=== PATIENT | female | born 1965 | race Caucasian/White ===

== ENCOUNTER 2021-05-05 23:25 | Emergency (ER) | payer OTHER, SELFPAY ==
--- NOTE | ~2021-05-05 | CT_ITS ---
EXAMINATION: CT HEAD WITHOUT CONTRAST CLINICAL INFORMATION: Intoxication. Question of fall. Evaluate for skull fracture. COMPARISON: CT head dated 08/13/2018 TECHNIQUE: Contiguous axial imaging was performed from the skull base to vertex without intravenous administration of contrast. This CT examination was performed using dose optimization techniques as appropriate, variously including the following: *Automated exposure control *Adjustment of mA and/or kV according to patient size (this includes techniques or standardized protocols for targeted exams where dose is matched to indication/reason for exam; i.e. extremities or head) *Use of iterative reconstruction technique DLP: 713 mGy-cm FINDINGS: There is no evidence of acute intracranial hemorrhage or territorial infarction. No abnormal mass effect or midline shift is seen. [place] to white matter differentiation is well preserved. No extra-axial fluid collections are identified. The ventricles are normal in size. Stable chronic encephalomalacia and gliosis involving the bilateral temporal lobes bilaterally. Mild patchy subcortical white matter low-attenuation changes statistically related to chronic white matter small vessel ischemic disease. Calvarium and skull base are intact.. The mastoid air cells and visualized portions of the paranasal sinuses are well aerated. CT/CT head/brain wo con IMPRESSION: * No acute intracranial pathology. * No calvarial fracture. * Chronic bilateral temporal lobe infarcts, and mild chronic white matter small vessel ischemic changes.
--- NOTE | ~2021-05-05 | XR_ITS ---
EXAMINATION: XR CHEST CLINICAL INFORMATION: Tachycardia COMPARISON: 01/30/2019 TECHNIQUE: Frontal view of the chest was obtained. FINDINGS: Bibasilar subsegmental atelectasis. Normal heart size. Pulmonary venous congestion without overt edema. No pleural effusion or pneumothorax. No acute or suspicious osseous abnormalities. XR/XR chest 1V IMPRESSION: Bibasilar subsegmental atelectasis. No discrete consolidation.
[2021-05-05 23:47] VITALS: BP 103/55; PULSE 110; RESP 15; TEMP 35.8; O2SAT 89; BMI 30.9
[2021-05-06] VITALS (9 sets, daily range): BP systolic 90–139; BP diastolic 51–75; PULSE 95–116; RESP 2–18; TEMP 34.8–36.9; O2SAT 93–98
--- NOTE | 2021-05-06 00:13 | ECG_ITS ---
Test Reason : SUBSTANCE ABUSE Blood Pressure : / mmHG Vent. Rate : 109 BPM Atrial Rate : 109 BPM P-R Int : 164 ms QRS Dur : 082 ms QT Int : 360 ms P-R-T Axes : 061 050 021 degrees QTc Int : 484 ms Sinus tachycardia Otherwise normal ECG When compared with ECG of 06-FEB-2019 21:41, Heart rate has increased Referred By: Generic ED Physician Electronically Signed By:DIOGO ROJAS
[2021-05-06 00:29] LABS: Basophils Percent Auto 0.6 % (0-2); Eosinophils Absolute Auto 0.2 X10*3/uL (0.0-0.4); Eosinophils Percent Auto 3.2 % (0-4); Hematocrit 36.3 % (37-47); Hemoglobin 12.2 g/dl (12.0-16.0); Imm Gran Abs Auto 0.01 X10*3/uL (0.00-0.03); Imm Gran Pct Auto 0.2 % (0.0-0.4); Lymphocytes Absolute Auto 3.1 X10*3/uL (1.2-4.9); Lymphocytes Percent Auto 61.2 % (20-40); MANUAL DIFF FLAG SCAN; Mean Corpuscular HGB Conc 33.6 g/dl (31.0-35.0); Mean Corpuscular Hemoglobin 30.3 pg (27.0-33.0); Mean Corpuscular Volume 90.3 fL (80-98); Mean Platelet Volume 9.6 fL (9.4-12.3); Monocytes Absolute Auto 0.5 X10*3/uL (0.1-1.2); Monocytes Percent Auto 10.4 % (2-11); Neutrophils Absolute Auto 1.2 X10*3/uL (2.0-8.3); Neutrophils Percent Auto 24.4 % (45-73); Platelet Count 219 X10*3/uL (160-400); Red Blood Count 4.02 X10*6/uL (4.20-5.50); Red Cell Distribution Width 12.5 % (11.0-16.0); SCAN SMEAR FLAG 1
[2021-05-06 00:41] LABS: Glucose, Whole Blood 132 mg/dL (60-115)
[2021-05-06 00:46] LABS: Ethanol 269 mg/dL
[2021-05-06 00:54] LABS: Anion Gap 16 (12-20); Blood Urea Nitrogen 13 mg/dL (9-16); Calcium 8.8 mg/dL (8.4-10.2); Carbon Dioxide 22 mmol/L (22-29); Chloride 107 mmol/L (96-108); Creatinine Clr Calc Pharmacy 86.7; Estimated Glomerular Filt Rate > 60; Glucose Random 141 mg/dL (60-115); Magnesium 1.8 mg/dL (1.6-2.6); Potassium 3.7 mmol/L (3.3-5.1); Sodium 141 mmol/L (135-145)
--- NOTE | 2021-05-06 01:31 | ED_ITS ---
HPI - Alcohol General Chief Complaint: ETOH/Substance Use Stated Complaint: etoh Time Seen by Provider: 05/06/21 01:21 Source: EMS Mode of arrival: EMS History of Present Illness HPI narrative: 55-year-old female who is brought in by EMS after she was found on the steps of the school with an empty beer can next to her. Although patient is noted to be responsive to pain and her point of care is 115 remaining history is unable to be obtained from her. Related Data Allergies Allergy/AdvReac Type Severity Reaction Status Date / Time No Known Allergies Allergy Unverified 05/11/20 16:55 [No Known Allergies*] Review of Systems Review of Systems: Yes Unobtainable due to mental status PMFSH Past Medical History Source: nursing notes reviewed Medical History (Updated 05/06/21 @ 06:24 by Ginny Andrew MD) Depression ETOH abuse Mood disorder as late effect of traumatic brain injury TBI (traumatic brain injury) Physical Exam Vital Signs: Vital Signs: Last Vital Signs Temp 94.6 F L 05/06/21 02:55 Pulse 95 05/06/21 04:45 Resp 12 05/06/21 04:45 BP 100/56 L 05/06/21 04:48 Pulse Ox 94 05/06/21 04:45 Body Mass Index 30.9 VITAL SIGNS: Reviewed. GENERAL: Smells like alcohol, in no acute distress. HEAD: Normocephalic/atraumatic EYES: PERRLA, EOMI OROPHARYNX: no oral lesions noted, posterior pharynx clear NECK: Supple, no adenopathy LUNGS: Normal breath sounds. No adventitious sounds or accessory muscle use. SpO2<98> CARDIOVASCULAR: Regular rate and rhythm without noted murmurs ABDOMEN: Soft, non-tender, non-distended with bowel sounds. MUSCULOSKELETAL: No tenderness, deformities, or effusions noted on gross inspe ction. EXTREMITIES: No cyanosis, clubbing or edema. SKIN: Inspection of the skin reveals no rashes, jaundice, pallor, or petechiae. NEUROLOGIC: GCS-10. Strength and sensation to light touch were grossly intact x 4. Course Course Course Narrative: 55-year-old female with history and clinical presentation suggestive of possible alcohol intoxication and likely other substances given GCS-10. Review of all investigations without acute findings other than alcohol intoxication as well as evidence of recent cocaine use. Patient has gradually become more arousable and alert and will be observed until clinically sober for discharge. Signed out to Dr Corea [facility] - Alcohol Lab Data Result diagrams: 05/06/21 00:23 05/06/21 00:23 Labs: Lab Results 05/05/21 05/06/21 05/06/21 Range/Units 23:43 00:23 00:23 WBC 5.0 (4.8-10.8) X10*3/uL RBC 4.02 L (4.20-5.50) X10*6/uL Hgb 12.2 (12.0-16.0) g/dl Hct 36.3 L (37-47) % MCV 90.3 (80-98) fL MCH 30.3 (27.0-33.0) pg MCHC 33.6 (31.0-35.0) g/dl RDW 12.5 (11.0-16.0) % Plt Count 219 (160-400) X10*3/uL MPV 9.6 (9.4-12.3) fL Immature Gran % (Auto) 0.2 (0.0-0.4) % Neut % (Auto) 24.4 L (45-73) % Lymph % (Auto) 61.2 H (20-40) % [place] % (Auto) 10.4 (2-11) % Eos % (Auto) 3.2 (0-4) % Baso % (Auto) 0.6 (0-2) % Lymph # (Auto) 3.1 (1.2-4.9) X10*3/uL [place] # (Auto) 0.5 (0.1-1.2) X10*3/uL Eos # (Auto) 0.2 (0.0-0.4) X10*3/uL Baso # (Auto) 0.0 (0.0-0.2) X10*3/uL Abs Immat Gran (auto) 0.01 (0.00-0.03) X10*3/uL Absolute Neuts (auto) 1.2 L (2.0-8.3) X10*3/uL Absolute Nucleated RBC 0.000 (0.0-0.012) X10*3/uL Nucleated RBC % (auto) 0.0 (0.0-0.2) /100WBC Smear Tech's Comments VERIFIED Sodium 141 (135-145) mmol/L Potassium 3.7 (3.3-5.1) mmol/L Chloride 107 (96-108) mmol/L Carbon Dioxide 22 (22-29) mmol/L Anion Gap 16 (12-20) BUN 13 (9-16) mg/dL Creatinine 0.74 (0.5-1.4) mg/dL Estim Creat Clear Calc 86.7 Estimated GFR > 60 POC Glucose 132 H (60-115) mg/dL Random Glucose 141 H (60-115) mg/dL Calcium 8.8 (8.4-10.2) mg/dL Magnesium 1.8 (1.6-2.6) mg/dL Total Bilirubin 0.2 (0.0-1.0) mg/dL Direct Bilirubin < 0.2 (0.0-0.5) mg/dL AST 38 H (5-31) U/L ALT 28 (0-31) U/L Alkaline Phosphatase 68 (39-117) U/L Ammonia (13-55) umol/L Total Protein 6.5 (6.5-8.0) g/dL Albumin 3.6 (3.5-5.0) g/dL Urine Color Urine Appearance Urine pH (5.0-8.0) Ur Specific [place] (1.005-1.025) Urine Protein (NEG-TRACE) MG/DL Urine Glucose (UA) (NEG) MG/DL Urine Ketones (NEG) MG/DL Urine Blood (NEG) Urine Nitrite (NEG) Ur Leukocyte Esterase (NEG) Salicylates < 5.0 L (15-30) mg/dL Urine Opiates Screen (Not Detect) Urine Fentanyl Screen (Not Detect) Acetaminophen < 1 (<30) mcg/mL Ur Barbiturates Screen (Not Detect) Ur Phencyclidine Scrn (Not Detect) Ur Amphetamines Screen (Not Detect) U Benzodiazepines Scrn (Not Detect) Urine Cocaine Screen (Not Detect) U Marijuana (THC) Screen (Not Detect) Ethyl Alcohol mg/dL COVID-19 (GARCIA) (Negative) COVID-19 Clin Com 05/06/21 05/06/21 05/06/21 Range/Units 00:23 02:20 02:32 WBC (4.8-10.8) X10*3/uL RBC (4.20-5.50) X10*6/uL Hgb (12.0-16.0) g/dl Hct (37-47) % MCV (80-98) fL MCH (27.0-33.0) pg MCHC (31.0-35.0) g/dl RDW (11.0-16.0) % Plt Count (160-400) X10*3/uL MPV (9.4-12.3) fL Immature Gran % (Auto) (0.0-0.4) % Neut % (Auto) (45-73) % Lymph % (Auto) (20-40) % [place] % (Auto) (2-11) % Eos % (Auto) (0-4) % Baso % (Auto) (0-2) % Lymph # (Auto) (1.2-4.9) X10*3/uL [place] # (Auto) (0.1-1.2) X10*3/uL Eos # (Auto) (0.0-0.4) X10*3/uL Baso # (Auto) (0.0-0.2) X10*3/uL Abs Immat Gran (auto) (0.00-0.03) X10*3/uL Absolute Neuts (auto) (2.0-8.3) X10*3/uL Absolute Nucleated RBC (0.0-0.012) X10*3/uL Nucleated RBC % (auto) (0.0-0.2) /100WBC Smear Tech's Comments Sodium (135-145) mmol/L Potassium (3.3-5.1) mmol/L Chloride (96-108) mmol/L Carbon Dioxide (22-29) mmol/L Anion Gap (12-20) BUN (9-16) mg/dL Creatinine (0.5-1.4) mg/dL Estim Creat Clear Calc Estimated GFR POC Glucose (60-115) mg/dL Random Glucose (60-115) mg/dL Calcium (8.4-10.2) mg/dL Magnesium (1.6-2.6) mg/dL Total Bilirubin (0.0-1.0) mg/dL Direct Bilirubin (0.0-0.5) mg/dL AST (5-31) U/L ALT (0-31) U/L Alkaline Phosphatase (39-117) U/L Ammonia (13-55) umol/L Total Protein (6.5-8.0) g/dL Albumin (3.5-5.0) g/dL Urine Color STRAW Urine Appearance CLEAR Urine pH 6.0 (5.0-8.0) Ur Specific [place] <= 1.005 (1.005-1.025) Urine Protein NEG (NEG-TRACE) MG/DL Urine Glucose (UA) NEG (NEG) MG/DL Urine Ketones NEG (NEG) MG/DL Urine Blood NEG (NEG) Urine Nitrite NEG (NEG) Ur Leukocyte Esterase NEG (NEG) Salicylates (15-30) mg/dL Urine Opiates Screen (Not Detect) Urine Fentanyl Screen (Not Detect) Acetaminophen (<30) mcg/mL Ur Barbiturates Screen (Not Detect) Ur Phencyclidine Scrn (Not Detect) Ur Amphetamines Screen (Not Detect) U Benzodiazepines Scrn (Not Detect) Urine Cocaine Screen (Not Detect) U Marijuana (THC) Screen (Not Detect) Ethyl Alcohol 269 mg/dL COVID-19 (GARCIA) Negative (Negative) COVID-19 Clin Com See Note 05/06/21 05/06/21 Range/Units 02:32 02:44 WBC (4.8-10.8) X10*3/uL RBC (4.20-5.50) X10*6/uL Hgb (12.0-16.0) g/dl Hct (37-47) % MCV (80-98) fL MCH (27.0-33.0) pg MCHC (31.0-35.0) g/dl RDW (11.0-16.0) % Plt Count (160-400) X10*3/uL MPV (9.4-12.3) fL Immature Gran % (Auto) (0.0-0.4) % Neut % (Auto) (45-73) % Lymph % (Auto) (20-40) % [place] % (Auto) (2-11) % Eos % (Auto) (0-4) % Baso % (Auto) (0-2) % Lymph # (Auto) (1.2-4.9) X10*3/uL [place] # (Auto) (0.1-1.2) X10*3/uL Eos # (Auto) (0.0-0.4) X10*3/uL Baso # (Auto) (0.0-0.2) X10*3/uL Abs Immat Gran (auto) (0.00-0.03) X10*3/uL Absolute Neuts (auto) (2.0-8.3) X10*3/uL Absolute Nucleated RBC (0.0-0.012) X10*3/uL Nucleated RBC % (auto) (0.0-0.2) /100WBC Smear Tech's Comments Sodium (135-145) mmol/L Potassium (3.3-5.1) mmol/L Chloride (96-108) mmol/L Carbon Dioxide (22-29) mmol/L Anion Gap (12-20) BUN (9-16) mg/dL Creatinine (0.5-1.4) mg/dL Estim Creat Clear Calc Estimated GFR POC Glucose (60-115) mg/dL Random Glucose (60-115) mg/dL Calcium (8.4-10.2) mg/dL Magnesium (1.6-2.6) mg/dL Total Bilirubin (0.0-1.0) mg/dL Direct Bilirubin (0.0-0.5) mg/dL AST (5-31) U/L ALT (0-31) U/L Alkaline Phosphatase (39-117) U/L Ammonia 37 (13-55) umol/L Total Protein (6.5-8.0) g/dL Albumin (3.5-5.0) g/dL Urine Color Urine Appearance Urine pH (5.0-8.0) Ur Specific [place] (1.005-1.025) Urine Protein (NEG-TRACE) MG/DL Urine Glucose (UA) (NEG) MG/DL Urine Ketones (NEG) MG/DL Urine Blood (NEG) Urine Nitrite (NEG) Ur Leukocyte Esterase (NEG) Salicylates (15-30) mg/dL Urine Opiates Screen Not Detected (Not Detect) Urine Fentanyl Screen Not Detected (Not Detect) Acetaminophen (<30) mcg/mL Ur Barbiturates Screen Not Detected (Not Detect) Ur Phencyclidine Scrn Not Detected (Not Detect) Ur Amphetamines Screen Not Detected (Not Detect) U Benzodiazepines Scrn Not Detected (Not Detect) Urine Cocaine Screen POSITIVE H (Not Detect) U Marijuana (THC) Screen Not Detected (Not Detect) Ethyl Alcohol mg/dL COVID-19 (GARCIA) (Negative) COVID-19 Clin Com ECG Data ECG #1: Attestation: I personally reviewed and interpreted this ECG as follows: Prior ECG tracings: not available for review Interpretation: Sinus tachycardia, HR-109, no STEMI, OH/QRS/QTC are within normal limits. Discharge Plan Discharge Clinical Impression: Alcoholic intoxication, Cocaine abuse Patient Disposition: Home, Self-Care Instructions: Alcohol Intoxication (ED), Alcohol Dependence (ED), Cocaine Abuse (ED) Additional Instructions: Return to the ER for acute worsening of symptoms.
[2021-05-06] MEDS: 0.9 % Sodium Chloride 1,000 ML 999 ML IV ×3 (02:09→06:52)
[2021-05-06 02:28] LABS: SLIDE REVIEW VERIFIED
--- NOTE | 2021-05-06 02:38 | PC.NURSE ---
PT STIL ONLY RESPONSIVE TO PAIN, SNORING RESPIRATIONS AND WOULD NOT BE ABLE TO CONTROL HER OWN AIRWAY. ONLY VERBAL RESPONSE HAS BEEN MOANING TO PAIN. PT HAS 369 ML WITH BLADDER SCAN. STRAIGHT CATH TO OBTAIN CLEAN CATCH. PT HAS STIFFNESS TO ALL 4 EXTREMITIES LASTING FOR MINUTES. PT DID NOT HAVE ANY NOTICABLE TONIC CLONIC ACTIVITY. PT'S EXREMITIES NOW FLEXIBLE AT JOINTS. PUPILS EQUAL AND REACTIVE, 2-3 MM.
[2021-05-06 02:45] LABS: Appearance Urine CLEAR; Color Urine STRAW; Glucose Urine UA NEG (NEG); Leukocyte Esterase Urine NEG (NEG); Nitrite Urine NEG (NEG); Specific Gravity - Urine <= 1.005 (1.005-1.025); Urine Blood NEG (NEG); Urine Ketones NEG (NEG); Urine Protein NEG (NEG-TRACE)
--- NOTE | 2021-05-06 02:55 | PC.NURSE ---
PRT WAKES TO PAINFUL STIMULUS. STATES I'M AWAKE. PT CAN NOT STAY AWAKE FOR CONVERSATION. UNKNOWN PMHX. REMERON, SEROQUEL AND HYDROXYZINE FOUND IN PURSE.
--- NOTE | 2021-05-06 02:57 | PC.NURSE ---
WARM BLANKETS PLACED ON PT. 340 ML OF URINE FROM STRAIGHT CATH.
[2021-05-06 02:59] LABS: Ammonia 37 umol/L (13-55)
[2021-05-06 03:04] LABS: Amphetamine Screen Urine Not Detected (Not Detect); Barbiturates, Urine Not Detected (Not Detect); Benzodiazepines Screen Urine Not Detected (Not Detect); Cannabinoid Screen Urine Not Detected (Not Detect); Cocaine Screen Urine POSITIVE (Not Detect); Fentanyl, urine Not Detected (Not Detect); Opiate Screen Urine Not Detected (Not Detect); Phencyclidine Screen Urine Not Detected (Not Detect)
[2021-05-06 03:05] LABS: Alanine Aminotransferase 28 U/L (0-31); Albumin Level 3.6 g/dL (3.5-5.0); Alkaline Phosphatase 68 U/L (39-117); Aspartate Amino Transferase 38 U/L (5-31); Bilirubin Direct < 0.2 mg/dL (0.0-0.5); Bilirubin Total 0.2 mg/dL (0.0-1.0); Total Protein 6.5 g/dL (6.5-8.0)
[2021-05-06 03:10] LABS: COVID-19 Test Negative (Negative)
--- NOTE | 2021-05-06 03:18 | PC.NURSE ---
FOUND NOTE FROM M5 DISCHARGE WHICH MENTIONED HX OF PSYCHIATRIC DEPRESSION MOOD INSTABILITY IRRITABILITY S/P TBI ETOH ON 09/03/2018 PT WAS REFERRED TO [facility] IN [place]. PT HAD A SON WHO WAS SUPPORTIVE WELL.
--- NOTE | 2021-05-06 03:49 | PC.NURSE ---
This RN passing by room and notes pt's BP to be 79/46. Dr Andrew made aware, to bedside. With painful stimulation, pt arouses for Dr Andrew. This RN repeats BP 98/65. Pt VS otherwise stable. IVF complete
[2021-05-06 04:12] LABS: Acetaminophen LAB < 1 mcg/mL (<30); Salicylate < 5.0 mg/dL (15-30)
--- NOTE | 2021-05-06 05:55 | PC.NURSE ---
pt responds to voice by opening her eyes, makes eye contact then goes back to sleep.
--- NOTE | 2021-05-06 11:52 | PC.NURSE ---
ALERT, SPEECH CLEAR, STEADY GAIT TO BATHROOM, CALLING FOR A RIDE
== END 2021-05-06 16:26 | disposition home or self-care (01) ==
LOC: HO.ED 05-06 07:25
PROVIDERS: Student in an Organized Health Care Education/Training Program; Emergency Provider Emergency Medicine; PCP Internal Medicine
DX: F10.129 Alcohol abuse with intoxication, unspecified (principal); G44.309 Post-traumatic headache, unspecified, not intractable; Y90.8 Blood alcohol level of 240 mg/100 ml or more; F14.10 Cocaine abuse, uncomplicated; Z20.822 Contact with and (suspected) exposure to COVID-19; Z79.899 Other long term (current) drug therapy
CPT/HCPCS: 36415; 51798; 70450; 71045; 80048; 80076; 80143; 80179; 80307; 81003; 82077; 82140; 82947; 83735; 85025; 87635; 93005; 99285

== ENCOUNTER 2021-05-06 21:36 | Emergency (ER) | payer OTHER, SELFPAY ==
[2021-05-06 21:45] VITALS: BP 148/82; PULSE 116; RESP 18; TEMP 37; O2SAT 96; BMI 37.2
--- NOTE | 2021-05-06 22:44 | ED_ITS ---
HPI - Psych General Chief Complaint: Psychiatric Symptoms Stated Complaint: crisis Time Seen by Provider: 05/06/21 22:44 Source: patient Mode of arrival: EMS Limitations: no limitations History of Present Illness HPI Narrative: This is a 55 years old of female with history of alcohol abuse presented by ambulance with a chief complaint of SI. The patient was seen here earlier in this emergency room as well complaint: substance abuse Onset (ago): day(s) (1) Duration: constant Relieving factors: none Exacerbating factors: none Associated psychiatric symptoms: none Related Data Home Medications Medication Instructions Recorded Confirmed quetiapine 50 mg tablet 1 tab PO BEDTIME 05/06/21 05/06/21 Allergies Allergy/AdvReac Type Severity Reaction Status Date / Time No Known Allergies Allergy Unverified 05/11/20 16:55 [No Known Allergies*] Review of Systems Review of Systems: Yes all other systems are reviewed and are negative Constitutional: Constitutional: Reports no additional constitutional complaints Eyes: Eyes: Reports no additional eye complaints ENT: Reports system reviewed and no additional complaints, except as documented Cardiovascular: Cardiovascular: Reports no additional cardiovascular complaints Respiratory: Respiratory: Reports no additional respiratory complaints Gastrointestinal: Gastrointestinal: Reports no additional gastrointestinal complaints Genitourinary: Genitourinary: Reports no additional female genitourinary complaints Musculoskeletal: Musculoskeletal: Reports no additional musculoskeletal complaints Integumentary/Breasts: Skin/Breast: Reports system reviewed and no additional complaints, except as docu Neurologic: Reports Abnormal speech present [facility] Past Medical History Medical History (Updated 05/07/21 @ 02:14 by Nba Stringer MD) Depression ETOH abuse Mood disorder as late effect of traumatic brain injury TBI (traumatic brain injury) Social History Social History Advance Directives: Yes Advance Directives on File: Yes Advance Directives Date on File: 05/06/21 Patient : No Physical Exam Vital Signs: Vital Signs: Last Vital Signs Temp 98.6 F 05/06/21 21:45 Pulse 103 H 05/06/21 23:40 Resp 18 05/06/21 23:40 BP 153/90 H 05/06/21 23:40 Pulse Ox 96 05/06/21 23:40 Body Mass Index 37.2 Const: General: cooperative and anxious Orientation/consciousness: oriented to person, oriented to place, oriented to time and patient oriented x3 Limitations: no limitations HENMT: Head: Yes normal to inspection Ears: hearing grossly normal bilaterally Mouth: Normal oral and palatal mucosa present Throat: Yes posterior oropharynx normal Neck: Neck: Yes normal visual inspection and Yes full ROM Thyroid: Thyroid normal Chest: Chest palpation & inspection: normal inspection of the chest Resp: Effort & Inspection: normal respiratory effort and able to speak in complete sentences Auscultation: clear to auscultation bilaterally Cardio: Jugular venous distension: no JVD Rate: regular rate Rhythm: regular rhythm GI: Inspection: Yes normal to inspection Palpation (GI): Soft to palpation, not firm, nontender and no guarding Auscultation: normal bowel sounds : General: Yes no CVA tenderness Back/Spine/Pelvis: Back: no CVA tenderness Skin: General skin exam: no rashes or lesions noted and elasticity normal Rashes: no rashes Neuro: General: oriented to person, oriented to place, oriented to time, patient oriented x3 and gait normal Cranial nerves: Yes CN's II-XII intact bilaterally Cognition (Neuro): normal cognition Speech: Abnormal speech present Course Reevaluation(s) Reevaluation #1: Signed out to Dr Andrew [facility] - Psych Lab Data Labs: Lab Results 05/06/21 05/06/21 05/06/21 Range/Units 22:24 22:24 22:24 Urine Color YELLOW Urine Appearance CLEAR Urine pH 6.0 (5.0-8.0) Ur Specific [place] >= 1.030 H (1.005-1.025) Urine Protein TRACE (NEG-TRACE) MG/DL Urine Glucose (UA) NEG (NEG) MG/DL Urine Ketones 15 (NEG) MG/DL Urine Blood TRACE (NEG) Urine Nitrite POS H (NEG) Ur Leukocyte Esterase 1+ H (NEG) Urine RBC 1-4 (0) /HPF Urine WBC 15-29 H (0-4) /HPF Ur Squamous Epith Cells 2+ /LPF Urine Bacteria 2+ /LPF Urine Opiates Screen Not Detected (Not Detect) Urine Fentanyl Screen Not Detected (Not Detect) Ur Barbiturates Screen Not Detected (Not Detect) Ur Phencyclidine Scrn Not Detected (Not Detect) Ur Amphetamines Screen Not Detected (Not Detect) U Benzodiazepines Scrn Not Detected (Not Detect) Urine Cocaine Screen POSITIVE H (Not Detect) U Marijuana (THC) Screen Not Detected (Not Detect) Ethyl Alcohol mg/dL COVID-19 (GARCIA) Negative (Negative) COVID-19 Clin Com See Note 05/06/21 Range/Units 23:33 Urine Color Urine Appearance Urine pH (5.0-8.0) Ur Specific [place] (1.005-1.025) Urine Protein (NEG-TRACE) MG/DL Urine Glucose (UA) (NEG) MG/DL Urine Ketones (NEG) MG/DL Urine Blood (NEG) Urine Nitrite (NEG) Ur Leukocyte Esterase (NEG) Urine RBC (0) /HPF Urine WBC (0-4) /HPF Ur Squamous Epith Cells /LPF Urine Bacteria /LPF Urine Opiates Screen (Not Detect) Urine Fentanyl Screen (Not Detect) Ur Barbiturates Screen (Not Detect) Ur Phencyclidine Scrn (Not Detect) Ur Amphetamines Screen (Not Detect) U Benzodiazepines Scrn (Not Detect) Urine Cocaine Screen (Not Detect) U Marijuana (THC) Screen (Not Detect) Ethyl Alcohol < 10 mg/dL COVID-19 (GARCIA) (Negative) COVID-19 Clin Com Discharge Plan Discharge Clinical Impression: Depression, Alcohol abuse Prescriptions: No Action quetiapine 50 mg tablet 1 tab PO BEDTIME RF: 0
[2021-05-06 22:53] LABS: COVID-19 Test Negative (Negative); IDNOW Serial# 9DD0AD1C
[2021-05-06 22:57] LABS: Appearance Urine CLEAR; Color Urine YELLOW; Glucose Urine UA NEG (NEG); Leukocyte Esterase Urine 1+ (NEG); Nitrite Urine POS (NEG); Specific Gravity - Urine >= 1.030 (1.005-1.025); UACC Culture Trigger YES; Urine Blood TRACE (NEG); Urine Ketones 15 MG/DL (NEG); Urine Protein TRACE MG/DL (NEG-TRACE)
[2021-05-06 23:04] LABS: Squamous Epithelial Cell Urine 2+ /LPF; UACC CULT YES
[2021-05-06 23:05] LABS: Bacteria Urine 2+ /LPF
[2021-05-06 23:10] LABS: Amphetamine Screen Urine Not Detected (Not Detect); Barbiturates, Urine Not Detected (Not Detect); Benzodiazepines Screen Urine Not Detected (Not Detect); Cannabinoid Screen Urine Not Detected (Not Detect); Cocaine Screen Urine POSITIVE (Not Detect); Fentanyl, urine Not Detected (Not Detect); Opiate Screen Urine Not Detected (Not Detect); Phencyclidine Screen Urine Not Detected (Not Detect)
[2021-05-06] MEDS: LORazepam 1 MG TABLET PO (23:28)
[2021-05-06] MEDS: Ibuprofen 800 MG TABLET PO (23:28)
[2021-05-06 23:40] VITALS: BP 153/90; PULSE 103; RESP 18; O2SAT 96
[2021-05-06 23:55] LABS: Ethanol < 10 mg/dL
[2021-05-07] MEDS: cephALEXin 500 MG CAPSULE PO (00:11)
--- NOTE | 2021-05-07 05:47 | PC.NURSE ---
Patient in bed appears sleeping, no distress observed/reported, patient got assessed by [facility], disposition is to d/c to living room and seek detox help from there, patient and provider both are in agreement with the plan, [facility]N will cab patient at 0730, provider made aware of d/c paper , RASHEED, will continue to monitor.
--- NOTE | 2021-05-07 07:08 | PC.NURSE ---
patient appears to remain asleep at this time with even respirations, about to wake patient for discharge
== END 2021-05-07 07:23 | disposition home or self-care (01) ==
PROVIDERS: Emergency Provider Emergency Medicine
DX: F33.1 Major depressive disorder, recurrent, moderate (principal); R45.851 Suicidal ideations; F10.129 Alcohol abuse with intoxication, unspecified; Y90.0 Blood alcohol level of less than 20 mg/100 ml; Z20.822 Contact with and (suspected) exposure to COVID-19; Z79.899 Other long term (current) drug therapy
CPT/HCPCS: 36415; 80307; 81001; 82077; 87086; 87635; 99283

== ENCOUNTER 2021-12-26 22:02 | Emergency (ER) | payer OTHER, SELFPAY ==
[2021-12-26 22:12] VITALS: BP 135/85; PULSE 78; RESP 15; TEMP 37; O2SAT 97; BMI 29.7
[2021-12-26 22:25] VITALS: BP 138/75; PULSE 80; RESP 15; TEMP 36.8; O2SAT 95
--- NOTE | 2021-12-26 22:56 | ED_ITS ---
HPI - Alcohol General Chief Complaint: ETOH/Substance Use Stated Complaint: Anxiety/ETOH Source: patient and EMS Mode of arrival: EMS Limitations: no limitations History of Present Illness HPI narrative: 56-year-old female presents via EMS for alcohol intoxication. Patient was found wandering in the [place] mall [place] it was closed. MD complaint: alcohol intoxication Last drink: Just prior to admission Chronic alcohol use: Yes Previous visits for alcohol intoxication: Yes Recent trauma: No Associated symptoms: denies other symptoms Related Data Home Medications Medication Instructions Recorded Confirmed quetiapine 50 mg tablet 1 tab PO BEDTIME 05/06/21 05/06/21 Allergies Allergy/AdvReac Type Severity Reaction Status Date / Time No Known Allergies Allergy Unverified 05/11/20 16:55 [No Known Allergies*] Review of Systems Review of Systems: Constitutional: No Fever, No Chills ENT/Mouth: No sore throat, No Rhinorrhea Eyes: No Eye Pain, No Swelling, No Redness Cardiovascular: No Chest Pain, No SOB Respiratory: No Cough, No Sputum Gastrointestinal: No Nausea, No Vomiting, No Diarrhea, No abdominal Pain Genitourinary: No Dysuria, No Hematuria Musculoskeletal: No joint pain, No Myalgias, No Joint Swelling Skin: No Skin Lesions, No rash Neuro: No Weakness, No Numbness, No Loss of Consciousness, No Dizziness, No Headache Psych: Positive alcohol intoxication, No Anxiety, No Depression, No SI/HI/AH/VH Heme/Lymph: No Bruising, No Bleeding,No Lymphadenopathy Endocrine: No Polyuria, No Polydipsia Yes all other systems are reviewed and are negative [facility] Past Medical History Attestation statement: The following information was validated with the patient. Source: old records reviewed Medical History Depression ETOH abuse Mood disorder as late effect of traumatic brain injury TBI (traumatic brain injury) Social History Social History Alcohol intake: current Patient Tobacco Use Status: Tobacco use Unknown Use of substances other than those prescribed or required for medical reasons: Unknown Advance Directives: Yes Advance Directives on File: Yes Advance Directives Date on File: 05/06/21 Patient : No Physical Exam ED Vital Signs: Vital Signs - 24 hr 12/26/21 22:12 12/26/21 22:25 Temperature 98.6 F 98.3 F Pulse Rate 78 80 Respiratory Rate 15 15 Blood Pressure 138/75 Pulse Oximetry 97 95 BMI result Body Mass Index 29.7 Appearance: Alert. Oriented X3. Intoxicated. Eyes: Pupils equal, round and reactive to light. Sclera nonicteric. No nystagmus. ENT: Pharynx normal. Moist mucous membranes. Neck: Normal inspection. Neck supple. CVS: Normal heart rate and rhythm. Pulses normal. Respiratory: No respiratory distress. Breath sounds normal. Abdomen: Soft and nontender. Skin: Skin warm and dry. Normal skin color. Normal skin turgor. Extremities: No lower extremity edema. Moves all extremities against resistance. Gait not tested for safety. Neuro: No motor deficit. No sensory deficit. Cranial nerves 2-12 intact. Course Course Course Narrative: 56-year-old female presents with acute alcohol intoxication. Was presented to the emergency department by EMS. Patient was found wandering in the [employer] mall visibly intoxicated. Patient is not suicidal or homicidal. Physical exam is unremarkable. Patient does not have a ride home at this time. Plan of care is to metabolized freedom. 01:05 position observation started at this time. Plan of care is discharge when metabolized to freedom. MDM - Alcohol Differential Diagnosis Differential diagnosis: Likely alcohol dependence and alcohol intoxication Medical Records Attestation: I reviewed the patient's medical records. Discharge Plan Discharge Clinical Impression: Alcoholic intoxication Patient Disposition: Home, Self-Care Instructions: Alcohol Intoxication (ED), Abuse of Alcohol (DC), Alcohol Use Disorder (ED) Additional Instructions: Consider detox. Thank you for choosing this emergency department for evaluation. Please follow-up with primary care physician as needed. Return to the emergency department for any new, concerning, or worsening symptoms. Prescriptions: No Action quetiapine 50 mg tablet 1 tab PO BEDTIME 0RF
[2021-12-27] VITALS: RESP 15
== END 2021-12-27 01:37 | disposition home or self-care (01) ==
PROVIDERS: Emergency Provider Internal Medicine
DX: F10.129 Alcohol abuse with intoxication, unspecified (principal); Y90.9 Presence of alcohol in blood, level not specified; Z87.820 Personal history of traumatic brain injury
CPT/HCPCS: 99284; 99285

== ENCOUNTER 2022-01-06 21:53 | Emergency (ER) | payer OTHER, SELFPAY ==
[2022-01-06 22:09] VITALS: BP 115/64; PULSE 84; O2SAT 95
[2022-01-06 22:21] VITALS: BP 125/75; PULSE 91; RESP 16; TEMP 36.9; O2SAT 94; BMI 35.2
--- NOTE | 2022-01-06 22:45 | ECG_ITS ---
Test Reason : alcohol intoxication Blood Pressure : / mmHG Vent. Rate : 090 BPM Atrial Rate : 090 BPM P-R Int : 202 ms QRS Dur : 088 ms QT Int : 378 ms P-R-T Axes : 069 047 036 degrees QTc Int : 462 ms Normal sinus rhythm Normal ECG When compared with ECG of 05-MAY-2021 23:49, No significant change was found Referred By: Ginny Andrew Electronically Signed By:JASMINA BLACK
--- NOTE | 2022-01-06 22:47 | ED_ITS ---
HPI - Alcohol General Chief Complaint: ETOH/Substance Use Stated Complaint: etoh Time Seen by Provider: 01/06/22 22:45 Source: patient Mode of arrival: EMS History of Present Illness HPI narrative: 56-year-old female is brought in by EMS after she states she called them because she can not go on like this and says that she wants to kill herself and does not have a definitive plan. Patient denies having any family locally and states emiliano t she has been nonstop drinking for the past week and has ?completely fallen off the wagon?. Patient states she has been in a detox program before but not recently. She denies any prior medical history. Related Data Home Medications Medication Instructions Recorded Confirmed quetiapine 50 mg tablet 1 tab PO BEDTIME 05/06/21 05/06/21 Allergies Allergy/AdvReac Type Severity Reaction Status Date / Time No Known Allergies Allergy Unverified 05/11/20 16:55 [No Known Allergies*] Review of Systems Review of Systems: Pertinent positives and negatives as stated in HPI 10 point review of systems is otherwise negative. PMFSH Past Medical History Source: nursing notes reviewed Medical History Depression ETOH abuse Mood disorder as late effect of traumatic brain injury TBI (traumatic brain injury) Social History Social History Alcohol intake: current Patient Tobacco Use Status: Tobacco use Unknown Advance Directives: Yes Advance Directives on File: Yes Advance Directives Date on File: 05/06/21 Physical Exam ED Vital Signs: Vital Signs - 24 hr 01/06/22 22:21 Temperature 98.4 F Pulse Rate 91 Respiratory Rate 16 Blood Pressure 125/75 Pulse Oximetry 94 BMI result Body Mass Index 35.2 VITAL SIGNS: Reviewed. GENERAL: Well developed, well nourished, smells like alcohol HEAD: Normocephalic/atraumatic EYES: PERRLA, EOMI EARS: Ext canals without abnormality OROPHARYNX: no oral lesions noted, posterior pharynx clear LUNGS: Normal breath sounds. No adventitious sounds or accessory muscle use. SpO2<94> CARDIOVASCULAR: Regular rate and rhythm without noted murmurs ABDOMEN: Soft, non-tender, non-distended with bowel sounds. MUSCULOSKELETAL: No tenderness, deformities, or effusions noted on gross inspection. EXTREMITIES: No cyanosis, clubbing or edema. SKIN: Inspection of the skin reveals no rashes NEUROLOGIC: Alert and oriented x 4. Strength and sensation to light touch were grossly intact x 4, cranial nerves 2-12 grossly intact PSYCH: Depressed affect Course Course Course Narrative: 56-year-old female with history and clinical presentation consistent with alcohol intoxication, depression, and vague SI requesting detox. Review of all investigations otherwise negative for acute findings other than alcohol intoxication at this time. Urinalysis is pending. Otherwise, patient is cleared for transfer to the behavioral pod on a CIWA scale after being given 25 of Librium. Reevaluation(s) Reevaluation #1: Patient placed in physician observation because the patient needed more time for evaluation by care team. At the time observation was started the patient's vital signs were stable, patient is alert and oriented, neuro: Nonfocal, CV RRR, lungs clear Time: 00:17 MDM - Alcohol Lab Data Result diagrams: 01/06/22 22:53 01/06/22 22:53 Labs: Lab Results 01/06/22 01/06/22 01/06/22 Range/Units 22:53 22:53 22:53 WBC 9.0 (4.8-10.8) X10*3/uL RBC 4.42 (4.20-5.50) X10*6/uL Hgb 14.0 (12.0-16.0) g/dl Hct 41.2 (37.0-47.0) % MCV 93.2 (80.0-98.0) fL MCH 31.7 (27.0-33.0) pg MCHC 34.0 (31.0-35.0) g/dl RDW 12.9 (11.0-16.0) % Plt Count 336 (160-400) X10*3/uL MPV 8.9 L (9.4-12.3) fL Immature Gran % (Auto) 0.1 (0.0-0.4) % Neut % (Auto) 34.7 L (45-73) % Lymph % (Auto) 54.8 H (20-40) % [place] % (Auto) 9.2 (2-11) % Eos % (Auto) 0.8 (0-4) % Baso % (Auto) 0.4 (0-2) % Lymph # (Auto) 5.0 H (1.2-4.9) X10*3/uL [place] # (Auto) 0.8 (0.1-1.2) X10*3/uL Eos # (Auto) 0.1 (0.0-0.4) X10*3/uL Baso # (Auto) 0.0 (0.0-0.2) X10*3/uL Abs Immat Gran (auto) 0.01 (0.00-0.03) X10*3/uL Absolute Neuts (auto) 3.1 (2.0-8.3) x10*3/uL Absolute Nucleated RBC 0.000 (0.0-0.012) X10*3/uL Nucleated RBC % (auto) 0.0 (0.0-0.2) /100WBC PT 11.4 (9.9-13.0) SEC INR 1.0 (0.9-1.1) Sodium 142 (135-145) mmol/L Potassium 3.8 (3.3-5.1) mmol/L Chloride 107 (96-108) mmol/L Carbon Dioxide 23 (22-29) mmol/L Anion Gap 16 (12-20) BUN 14 (9-16) mg/dL Creatinine 0.72 (0.5-1.4) mg/dL Estim Creat Clear Calc 80.6 Estimated GFR > 60 Random Glucose 124 H (60-115) mg/dL Calcium 9.1 (8.4-10.2) mg/dL Total Bilirubin 0.4 (0.0-1.0) mg/dL AST 26 (5-31) U/L ALT 21 (0-31) U/L Alkaline Phosphatase 76 (39-117) U/L Total Protein 7.9 D (6.5-8.0) g/dL Albumin 4.2 (3.5-5.0) g/dL Ethyl Alcohol mg/dL 01/06/22 Range/Units 22:53 WBC (4.8-10.8) X10*3/uL RBC (4.20-5.50) X10*6/uL Hgb (12.0-16.0) g/dl Hct (37.0-47.0) % MCV (80.0-98.0) fL MCH (27.0-33.0) pg MCHC (31.0-35.0) g/dl RDW (11.0-16.0) % Plt Count (160-400) X10*3/uL MPV (9.4-12.3) fL Immature Gran % (Auto) (0.0-0.4) % Neut % (Auto) (45-73) % Lymph % (Auto) (20-40) % [place] % (Auto) (2-11) % Eos % (Auto) (0-4) % Baso % (Auto) (0-2) % Lymph # (Auto) (1.2-4.9) X10*3/uL [place] # (Auto) (0.1-1.2) X10*3/uL Eos # (Auto) (0.0-0.4) X10*3/uL Baso # (Auto) (0.0-0.2) X10*3/uL Abs Immat Gran (auto) (0.00-0.03) X10*3/uL Absolute Neuts (auto) (2.0-8.3) x10*3/uL Absolute Nucleated RBC (0.0-0.012) X10*3/uL Nucleated RBC % (auto) (0.0-0.2) /100WBC PT (9.9-13.0) SEC INR (0.9-1.1) Sodium (135-145) mmol/L Potassium (3.3-5.1) mmol/L Chloride (96-108) mmol/L Carbon Dioxide (22-29) mmol/L Anion Gap (12-20) BUN (9-16) mg/dL Creatinine (0.5-1.4) mg/dL Estim Creat Clear Calc Estimated GFR Random Glucose (60-115) mg/dL Calcium (8.4-10.2) mg/dL Total Bilirubin (0.0-1.0) mg/dL AST (5-31) U/L ALT (0-31) U/L Alkaline Phosphatase (39-117) U/L Total Protein (6.5-8.0) g/dL Albumin (3.5-5.0) g/dL Ethyl Alcohol 286 mg/dL Discharge Plan Discharge Clinical Impression: Alcoholic intoxication, Alcohol use disorder, mild, abuse, Depression, Suicide ideation Patient Disposition: Still a Patient Prescriptions: No Action quetiapine 50 mg tablet 1 tab PO BEDTIME 0RF
[2022-01-06] MEDS: 0.9 % Sodium Chloride 1,000 ML 999 ML IV (23:10)
[2022-01-06 23:11] LABS: Basophils Percent Auto 0.4 % (0-2); Eosinophils Absolute Auto 0.1 X10*3/uL (0.0-0.4); Eosinophils Percent Auto 0.8 % (0-4); Hematocrit 41.2 % (37.0-47.0); Imm Gran Abs Auto 0.01 X10*3/uL (0.00-0.03); Imm Gran Pct Auto 0.1 % (0.0-0.4); Lymphocytes Percent Auto 54.8 % (20-40); MANUAL DIFF FLAG NO; Mean Corpuscular Hemoglobin 31.7 pg (27.0-33.0); Mean Corpuscular Volume 93.2 fL (80.0-98.0); Mean Platelet Volume 8.9 fL (9.4-12.3); Monocytes Absolute Auto 0.8 X10*3/uL (0.1-1.2); Monocytes Percent Auto 9.2 % (2-11); Neutrophils Absolute Auto 3.1 x10*3/uL (2.0-8.3); Neutrophils Percent Auto 34.7 % (45-73); Platelet Count 336 X10*3/uL (160-400); Red Blood Count 4.42 X10*6/uL (4.20-5.50); Red Cell Distribution Width 12.9 % (11.0-16.0)
[2022-01-06 23:16] LABS: Prothrombin Time 11.4 SEC (9.9-13.0)
[2022-01-06 23:23] LABS: Ethanol 286 mg/dL
[2022-01-06 23:32] LABS: Alanine Aminotransferase 21 U/L (0-31); Albumin Level 4.2 g/dL (3.5-5.0); Alkaline Phosphatase 76 U/L (39-117); Anion Gap 16 (12-20); Aspartate Amino Transferase 26 U/L (5-31); Bilirubin Total 0.4 mg/dL (0.0-1.0); Blood Urea Nitrogen 14 mg/dL (9-16); Calcium 9.1 mg/dL (8.4-10.2); Carbon Dioxide 23 mmol/L (22-29); Chloride 107 mmol/L (96-108); Creatinine Clr Calc Pharmacy 80.6; Estimated Glomerular Filt Rate > 60; Glucose Random 124 mg/dL (60-115); Potassium 3.8 mmol/L (3.3-5.1); Sodium 142 mmol/L (135-145); Total Protein 7.9 g/dL (6.5-8.0)
[2022-01-07 00:49] LABS: COVID-19 Test Negative (Negative)
[2022-01-07 01:14] LABS: Appearance Urine CLEAR; Color Urine YELLOW; Glucose Urine UA NEG (NEG); Leukocyte Esterase Urine NEG (NEG); Nitrite Urine NEG (NEG); PH 5.5 (5.0-8.0); UACC Culture Trigger NO; Urine Blood 2+ (NEG); Urine Ketones 5 MG/DL (NEG); Urine Protein NEG (NEG-TRACE)
[2022-01-07] MEDS: chlordiazePOXIDE HCl 25 MG CAPSULE PO ×2 (01:19→09:03)
[2022-01-07 01:38] LABS: Bacteria Urine 2+ /LPF; Mucus Urine 1+ /LPF; Squamous Epithelial Cell Urine 1+ /LPF
[2022-01-07 02:13] LABS: Amphetamine Screen Urine Not Detected (Not Detect); Barbiturates, Urine Not Detected (Not Detect); Benzodiazepines Screen Urine Not Detected (Not Detect); Cannabinoid Screen Urine Not Detected (Not Detect); Cocaine Screen Urine Not Detected (Not Detect); Fentanyl, urine Not Detected (Not Detect); Opiate Screen Urine Not Detected (Not Detect); Phencyclidine Screen Urine Not Detected (Not Detect)
[2022-01-07 02:42] VITALS: BP 124/77; PULSE 94; RESP 17; TEMP 37; O2SAT 96
--- NOTE | 2022-01-07 05:53 | PC.NURSE ---
Patient slept through the night, no distress observed/reported, Librium ordered earlier was not administered because patient was sleeping but was administered at 0550 when patient scored 5 on CIWA, patient agreed to notify staff member immediately if patient feels withdrawal symptoms, patient will be assessed preliminary by care team to evaluate the need of full assessment, VSS, behavior pleasant and non concerning, will continue to monitor.
[2022-01-07 05:54] VITALS: BP 131/81; PULSE 76; RESP 16; TEMP 36.7; O2SAT 96
[2022-01-07 09:04] VITALS: BP 137/76; PULSE 76; RESP 18; O2SAT 98
[2022-01-07] MEDS: Folic Acid 1 MG TABLET PO (12:02)
[2022-01-07] MEDS: Thiamine HCL 100 MG TABLET 200 MG PO (12:02)
--- NOTE | 2022-01-07 12:34 | HO.SUDE ---
Patient is a 56 year-old woman who arrived to the ED by ambulance last night intoxicated with report of hopelessness and suicidal ideation. Ambulance documentation indicated they were called to a bar where a patron was having chest pain. CARE Team met with patient in [facility] this morning after she requested discharge home. She was alert and oriented, fully engaged, appeared disheveled and her stated age, maintained appropriate eye contact, voice soft and clear, thought process linear. Patient explained that she recently finished a program in [place] where she lived for several weeks but relapsed shortly after discharge. She has mental health providers through [facility] and said she needs to make a therapy appointment. She reflected that the warm weather was a trigger and she began drinking on the first , in addition she said residual pain from shingles (Oct 16) has weakened her self control. Patient acknowledged feeling frustrated with herself and wanting to make changes in her life but declined referrals to detoxes. She identified distance as a barrier and she was informed that [facility] Recovery Team would provide transportation to and from treatment. Patient lives with her son and is certain that she can return there without issue, he works nights and did not answer the phone. Patient denied current suicidal ideation, plan or intention, stated that when drinking she often becomes emotional, has no history of attempts or gestures. At this patient is not having a psychiatric crisis and does not need inpatient admission. Plan to discharge discussed with ED provider, APOLLO Morales and shift production supervisor, CARMENCITA Shook who are in agreement patient can discharge.
--- NOTE | 2022-01-07 12:38 | MHC.RECOVRN ---
Met with pt in 2 prior to discharge. Pt reports drinking alcohol, 8-10 nips vodka daily x a few days at least. Pt reports having completed an intake with Dina Kwon last week and desire to go to ATS. T/w spoke with [facility], no beds available and pt is on a contract. Pt made aware of bed availability, declines pursuing other ATS facilities. Pt requesting to discharge. Denies SI/HI/AH/VH. Discussed with CARE Team.
== END 2022-01-07 12:27 | disposition home or self-care (01) ==
PROVIDERS: Emergency Provider Student in an Organized Health Care Education/Training Program; PCP Internal Medicine
DX: F33.9 Major depressive disorder, recurrent, unspecified (principal); R45.851 Suicidal ideations; F10.129 Alcohol abuse with intoxication, unspecified; Y90.8 Blood alcohol level of 240 mg/100 ml or more; Z87.820 Personal history of traumatic brain injury; Z20.822 Contact with and (suspected) exposure to COVID-19
CPT/HCPCS: 36415; 80053; 80307; 81001; 82077; 85025; 85610; 87635; 93005; 96360; 99284

== ENCOUNTER 2022-01-07 22:20 | Emergency (ER) | payer OTHER, SELFPAY ==
[2022-01-07 22:35] VITALS: BP 116/80; BP 130/80; PULSE 88; PULSE 90; RESP 18; TEMP 37.1; O2SAT 97; O2SAT 98; BMI 32.2
--- NOTE | 2022-01-07 22:39 | ED_ITS ---
HPI - Psych General Chief Complaint: ETOH/Substance Use Stated Complaint: detox, fed up Time Seen by Provider: 01/07/22 22:36 Source: patient Mode of arrival: ambulatory Limitations: no limitations History of Present Illness HPI Narrative: This is a 56-year-old female past medical history significant for depression, alcohol use disorder presenting to the emergency department via ambulance, patient called the ambulance because she felt like she was ready to go to detox. Patient tells me she was seen here yesterday and they told her that if she changed her mind about detox she should come back to the hospital. Patient tells me she had 7 nips of Smirnoff today, her last drink was just prior to calling the ambulance. She tells me today she was hanging out with the wrong crowd. Patient tells me she has been drinking a lot over the past week due to life stressors recent of a family member. Denies visual, auditory and tactile hallucinations. Denies suicidal ideation and homicidal ideation. Pat jose denies any medical complaints at this time. Patient has been detox in the past with success however not recently. MD complaint: suicidal ideation and feels depressed Onset (ago): week(s) (1) Duration: constant History of same: Yes Relieving factors: none Exacerbating factors: none Context: recent alcohol abuse Associated psychiatric symptoms: none Associated symptoms: denies other symptoms Treatments prior to arrival: none Related Data Home Medications Medication Instructions Recorded Confirmed No Known Home Meds 01/07/22 01/07/22 Allergies Allergy/AdvReac Type Severity Reaction Status Date / Time No Known Allergies Allergy Unverified 05/11/20 16:55 [No Known Allergies*] Review of Systems Review of Systems: Constitutional : No Fever, No Chills ENT/Mouth : No sore throat, No Rhinorrhea Eyes: No Eye Pain, No Swelling, No Redness Cardiovascular : No Chest Pain, No SOB Respiratory : No Cough, No Sputum Gastrointestinal : No Nausea, No Vomiting, No Diarrhea, No abdominal Pain Genitourinary : No Dysuria, No Hematuria Musculoskeletal : No joint pain, No Myalgias, No Joint Swelling Skin : No Skin Lesions, No rash Neuro : No Weakness, No Numbness Psych : No Anxiety, + Depression, No SI/HI/AH/VH All other systems reviewed and are negative Yes all other systems are reviewed and are negative [facility] Past Medical History Attestation statement: The following information was validated with the patient. Source: old records reviewed and nursing notes reviewed Medical History Depression ETOH abuse Mood disorder as late effect of traumatic brain injury TBI (traumatic brain injury) Social History Social History Alcohol intake: current Patient Tobacco Use Status: Tobacco use Unknown Advance Directives: Yes Advance Directives on File: Yes Advance Directives Date on File: 05/06/21 Physical Exam Vital Signs: Vital Signs: Last Vital Signs Temp 98.7 F 01/07/22 22:35 Pulse 90 01/07/22 22:35 Resp 18 01/07/22 22:35 BP 116/80 01/07/22 22:35 Pulse Ox 97 01/07/22 22:35 BMI result Body Mass Index 32.2 Vital signs stable Appearance: Alert.? Oriented X3.? No acute distress.? Head: Normocephalic, atraumatic, no step-offs or deformities Eyes: Pupils equal, round and reactive to light.? ENT: Pharynx normal.? Neck: Normal inspection.? Neck supple.? CVS: Normal heart rate and rhythm.? Pulses normal.? Respiratory: No respiratory distress.? Breath sounds normal.? Abdomen: Soft and nontender.? Skin: Skin warm and dry.? Normal skin color.? Normal skin turgor.? Extremities: No lower extremity edema.? No calf ttp. 5/5 strength to bilateral upper and lower extremities Neuro: Oriented X 3.? No motor deficit.? No sensory deficit. CN 2-12 intact Course Reevaluation(s) Reevaluation #1: CBC within normal limits, chemistry with no acute electrolyte abnormalities, urine toxicology negative, urine clean for infection, ethanol level 213, COVID negative. At this time patient will be placed in physician observation to allow more time to be evaluated by the behavioral health team for depression and seeking detox. At time observation was started patient common cooperative no acute distress will continue to monitor Time: 00:09 MDM - Psych MDM Narrative Medical decision making narrative: 2234 56-year-old female history of alcohol use disorder presents via ambulance requesting detox. Upon chart review was noted the patient was seen here yesterday with suicidal ideation, alcohol intoxication. She was evaluated by the care team and she refused detox at that time, discharge home as she was not suicidal or homicidal. Patient tells me she is not feeling better. CIWA 0 Exam benign no signs of autonomic dysfunction, no tongue fasciculations, asterixis. History and physical examination consistent with alcohol intoxication unlikely that this is hepatic encephalopathy. Plan medical clearance Medical Records Attestation: I reviewed the patient's medical records. Lab Data Attestation: I reviewed the patient's lab results. Result diagrams: 01/07/22 22:55 01/07/22 22:55 Labs: Lab Results 01/07/22 01/07/22 01/07/22 Range/Units 22:55 22:55 22:55 WBC 7.5 (4.8-10.8) X10*3/uL RBC 3.82 L (4.20-5.50) X10*6/uL Hgb 12.0 (12.0-16.0) g/dl Hct 35.7 L (37.0-47.0) % MCV 93.5 (80.0-98.0) fL MCH 31.4 (27.0-33.0) pg MCHC 33.6 (31.0-35.0) g/dl RDW 12.6 (11.0-16.0) % Plt Count 289 (160-400) X10*3/uL MPV 9.0 L (9.4-12.3) fL Immature Gran % (Auto) 0.1 (0.0-0.4) % Neut % (Auto) 32.0 L (45-73) % Lymph % (Auto) 56.2 H (20-40) % [place] % (Auto) 9.8 (2-11) % Eos % (Auto) 1.2 (0-4) % Baso % (Auto) 0.7 (0-2) % Lymph # (Auto) 4.2 (1.2-4.9) X10*3/uL [place] # (Auto) 0.7 (0.1-1.2) X10*3/uL Eos # (Auto) 0.1 (0.0-0.4) X10*3/uL Baso # (Auto) 0.1 (0.0-0.2) X10*3/uL Abs Immat Gran (auto) 0.01 (0.00-0.03) X10*3/uL Absolute Neuts (auto) 2.4 (2.0-8.3) x10*3/uL Absolute Nucleated RBC 0.000 (0.0-0.012) X10*3/uL Nucleated RBC % (auto) 0.0 (0.0-0.2) /100WBC Sodium 143 (135-145) mmol/L Potassium 3.7 (3.3-5.1) mmol/L Chloride 109 H (96-108) mmol/L Carbon Dioxide 24 (22-29) mmol/L Anion Gap 14 (12-20) BUN 12 (9-16) mg/dL Creatinine 0.67 (0.5-1.4) mg/dL Estim Creat Clear Calc 82.6 Estimated GFR > 60 Random Glucose 111 (60-115) mg/dL Calcium 9.1 (8.4-10.2) mg/dL Magnesium 2.0 (1.6-2.6) mg/dL Total Bilirubin 0.7 (0.0-1.0) mg/dL AST 20 (5-31) U/L ALT 16 (0-31) U/L Alkaline Phosphatase 67 (39-117) U/L Total Protein 6.8 (6.5-8.0) g/dL Albumin 3.8 (3.5-5.0) g/dL Ethyl Alcohol mg/dL COVID-19 (GARCIA) Negative (Negative) COVID-19 Clin Com See Note 01/07/22 Range/Units 22:55 WBC (4.8-10.8) X10*3/uL RBC (4.20-5.50) X10*6/uL Hgb (12.0-16.0) g/dl Hct (37.0-47.0) % MCV (80.0-98.0) fL MCH (27.0-33.0) pg MCHC (31.0-35.0) g/dl RDW (11.0-16.0) % Plt Count (160-400) X10*3/uL MPV (9.4-12.3) fL Immature Gran % (Auto) (0.0-0.4) % Neut % (Auto) (45-73) % Lymph % (Auto) (20-40) % [place] % (Auto) (2-11) % Eos % (Auto) (0-4) % Baso % (Auto) (0-2) % Lymph # (Auto) (1.2-4.9) X10*3/uL [place] # (Auto) (0.1-1.2) X10*3/uL Eos # (Auto) (0.0-0.4) X10*3/uL Baso # (Auto) (0.0-0.2) X10*3/uL Abs Immat Gran (auto) (0.00-0.03) X10*3/uL Absolute Neuts (auto) (2.0-8.3) x10*3/uL Absolute Nucleated RBC (0.0-0.012) X10*3/uL Nucleated RBC % (auto) (0.0-0.2) /100WBC Sodium (135-145) mmol/L Potassium (3.3-5.1) mmol/L Chloride (96-108) mmol/L Carbon Dioxide (22-29) mmol/L Anion Gap (12-20) BUN (9-16) mg/dL Creatinine (0.5-1.4) mg/dL Estim Creat Clear Calc Estimated GFR Random Glucose (60-115) mg/dL Calcium (8.4-10.2) mg/dL Magnesium (1.6-2.6) mg/dL Total Bilirubin (0.0-1.0) mg/dL AST (5-31) U/L ALT (0-31) U/L Alkaline Phosphatase (39-117) U/L Total Protein (6.5-8.0) g/dL Albumin (3.5-5.0) g/dL Ethyl Alcohol 213 mg/dL COVID-19 (GARCIA) (Negative) COVID-19 Clin Com Critical Care Time Critical Care Time Critical Care Time: No Discharge Plan Discharge Clinical Impression: Alcoholic intoxication, Depression Patient Disposition: Still a Patient Prescriptions: No Action No Known Home Meds 0RF
[2022-01-07 23:01] LABS: MANUAL DIFF FLAG NO
[2022-01-07 23:03] LABS: Basophils Absolute Auto 0.1 X10*3/uL (0.0-0.2); Basophils Percent Auto 0.7 % (0-2); Eosinophils Absolute Auto 0.1 X10*3/uL (0.0-0.4); Eosinophils Percent Auto 1.2 % (0-4); Hematocrit 35.7 % (37.0-47.0); Imm Gran Abs Auto 0.01 X10*3/uL (0.00-0.03); Imm Gran Pct Auto 0.1 % (0.0-0.4); Lymphocytes Absolute Auto 4.2 X10*3/uL (1.2-4.9); Lymphocytes Percent Auto 56.2 % (20-40); Mean Corpuscular HGB Conc 33.6 g/dl (31.0-35.0); Mean Corpuscular Hemoglobin 31.4 pg (27.0-33.0); Mean Corpuscular Volume 93.5 fL (80.0-98.0); Monocytes Absolute Auto 0.7 X10*3/uL (0.1-1.2); Monocytes Percent Auto 9.8 % (2-11); Neutrophils Absolute Auto 2.4 x10*3/uL (2.0-8.3); Platelet Count 289 X10*3/uL (160-400); Red Blood Count 3.82 X10*6/uL (4.20-5.50); Red Cell Distribution Width 12.6 % (11.0-16.0); White Blood Count 7.5 X10*3/uL (4.8-10.8)
[2022-01-07] MEDS: LORazepam 1 MG TABLET PO (23:05)
[2022-01-07 23:15] LABS: Ethanol 213 mg/dL
[2022-01-07 23:17] LABS: Alanine Aminotransferase 16 U/L (0-31); Albumin Level 3.8 g/dL (3.5-5.0); Alkaline Phosphatase 67 U/L (39-117); Anion Gap 14 (12-20); Aspartate Amino Transferase 20 U/L (5-31); Bilirubin Total 0.7 mg/dL (0.0-1.0); Blood Urea Nitrogen 12 mg/dL (9-16); Calcium 9.1 mg/dL (8.4-10.2); Carbon Dioxide 24 mmol/L (22-29); Chloride 109 mmol/L (96-108); Creatinine Clr Calc Pharmacy 82.6; Estimated Glomerular Filt Rate > 60; Glucose Random 111 mg/dL (60-115); Potassium 3.7 mmol/L (3.3-5.1); Sodium 143 mmol/L (135-145); Total Protein 6.8 g/dL (6.5-8.0)
[2022-01-07 23:39] LABS: COVID-19 Test Negative (Negative)
--- NOTE | 2022-01-08 06:10 | PC.NURSE ---
Patient slept through the night, no distress observed/reported, asymptomatic withdrawal at this time, received Ativan 1 mg po at 2300 with + effect, patient will meet track coach for detox help, denied SI/HI/AVH, behavior appropriate, VSS, will continue to monitor.
--- NOTE | 2022-01-08 07:31 | PC.NURSE ---
patient appears to remain asleep at present respirations are even ans unlabored aptient appears in no distress
[2022-01-08 07:56] VITALS: BP 139/79; PULSE 85; RESP 18; TEMP 36.8; O2SAT 94
[2022-01-08 10:47] LABS: Appearance Urine HAZY; Color Urine YELLOW; Glucose Urine UA NEG (NEG); Leukocyte Esterase Urine NEG (NEG); Nitrite Urine POS (NEG); PH 7.5 (5.0-8.0); UACC Culture Trigger YES; Urine Blood TRACE (NEG); Urine Ketones NEG (NEG); Urine Protein NEG (NEG-TRACE)
[2022-01-08 10:55] LABS: RBC Urine 0-2 /HPF (0)
[2022-01-08 10:56] LABS: Bacteria Urine 1+ /LPF
[2022-01-08 10:57] LABS: Amphetamine Screen Urine Not Detected (Not Detect); Barbiturates, Urine Not Detected (Not Detect); Benzodiazepines Screen Urine POSITIVE (Not Detect); Cannabinoid Screen Urine Not Detected (Not Detect); Cocaine Screen Urine Not Detected (Not Detect); Fentanyl, urine Not Detected (Not Detect); Opiate Screen Urine Not Detected (Not Detect); Phencyclidine Screen Urine Not Detected (Not Detect)
[2022-01-08] MEDS: chlordiazePOXIDE HCl 25 MG CAPSULE PO (11:18)
--- NOTE | 2022-01-08 11:43 | MHC.RECOVRN ---
Female bed available at [facility]. Referral has been sent. Awaiting reply. Pt unable to return to [facility] at this time due to being on a contract for behavior.
--- NOTE | 2022-01-08 12:39 | MHC.RECOVRN ---
Addendum entered by Cris Staley 01/08/22 12:45: [facility]-no availability Miguel A-left message Erick-left message Original Note: Referral also sent to [facility]. Resent to [facility] since there has not been an update and cannot get intake staff on the phone.
--- NOTE | 2022-01-08 13:30 | MHC.RECOVRN ---
No bed availability at [facility].
--- NOTE | 2022-01-09 11:27 | MHC.RECOVRN ---
Late entry: Prior to pt dc yesterday, pt was aware there was bed availability at [facility] but we were awaiting review of referral and acceptance to ATS. Pt declined to wait for the process to be completed. Pt has contact information of both [facility] and myself if needed. Pt denied SI/HI/AH/VH, states I just want to get out of here. RN and provider were made aware.
== END 2022-01-08 14:39 | disposition home or self-care (01) ==
PROVIDERS: Physician Assistant; Emergency Provider Internal Medicine; PCP Internal Medicine
DX: F33.1 Major depressive disorder, recurrent, moderate (principal); F10.129 Alcohol abuse with intoxication, unspecified; Y90.7 Blood alcohol level of 200-239 mg/100 ml; Z20.822 Contact with and (suspected) exposure to COVID-19; Z79.899 Other long term (current) drug therapy
CPT/HCPCS: 80053; 80307; 81001; 82077; 83735; 85025; 87086; 87635; 99284

== ENCOUNTER 2022-04-04 16:13 | Emergency (ER) | payer OTHER, SELFPAY ==
[2022-04-04 16:19] VITALS: BP 118/70; PULSE 90; O2SAT 95
[2022-04-04 16:41] VITALS: BP 109/65; PULSE 82; RESP 16; TEMP 36.6; O2SAT 93; BMI 31.1
[2022-04-04 17:20] LABS: COVID-19 Test Negative (Negative)
--- NOTE | 2022-04-04 18:10 | ED.PSYCH ---
HPI - Psych General Chief Complaint: Psychiatric Symptoms Stated Complaint: ETOH/SI Time Seen by Provider: 04/04/22 16:22 Source: patient Mode of arrival: ambulatory Limitations: no limitations History of Present Illness HPI Narrative: 56-year-old female presents to ED for suicidal thoughts and wanting detox from alcohol. Patient states history of alcohol abuse and drinking lots of alcohol like to stop. Patient states her plan is to overdose on pills. Patient denies any physical complaints Related Data Home Medications Medication Instructions Recorded Confirmed No Known Home Meds 01/08/22 01/08/22 Allergies Allergy/AdvReac Type Severity Reaction Status Date / Time No Known Allergies Allergy Unverified 05/11/20 16:55 [No Known Allergies*] Review of Systems Review of Systems: Alcohol abuse. Suicide thoughts PMFSH Past Medical History Medical History Depression ETOH abuse Mood disorder as late effect of traumatic brain injury TBI (traumatic brain injury) Social History Social History Alcohol intake: current Patient Tobacco Use Status: Tobacco use Unknown Advance Directives: Yes Advance Directives on File: Yes Advance Directives Date on File: 05/06/21 Physical Exam Vital Signs: Vital Signs: Last Vital Signs Temp 97.8 F 04/04/22 16:41 Pulse 82 04/04/22 16:41 Resp 16 04/04/22 16:41 BP 109/65 04/04/22 16:41 Pulse Ox 93 04/04/22 16:41 O2 Del Method 04/04/22 16:41 BMI result Body Mass Index 31.1 Const: General: cooperative, healthy appearing, comfortable, no acute distress, well developed, alert, awake and Physically active Orientation/consciousness: patient oriented x3 HEENT: Head: Yes normal to inspection, Yes No palpable skull fracture present, Yes normocephalic, Yes atraumatic and No abrasion Eyes: General: appearance normal, both eyes and all related structures Neck: Neck: Yes normal visual inspection, Yes full ROM, Yes no lymphadenopathy, Yes no meningeal signs, Yes trachea midline, Yes supple, No anterior neck swelling and No tender Chest: Chest palpation & inspection: normal inspection of the chest and normal palpation of entire chest wall Resp: Effort & Inspection: normal respiratory effort and able to speak in complete sentences Auscultation: clear to auscultation bilaterally Cardio: Jugular venous distension: no JVD Heart sounds: S1 normal heart sound present and S2 normal heart sound present GI: Inspection: Yes normal to inspection and No abdominal wall ecchymosis Palpation (GI): Soft to palpation, not firm, nontender, no guarding and not rigid : General: No CVA tenderness and Yes no CVA tenderness Back/Spine/Pelvis: Back: no CVA tenderness, No CVA tenderness and No back tenderness Skin: General skin exam: no rashes or lesions noted and elasticity normal Neuro: General: patient oriented x3, gait normal, no meningeal signs and CN's II-XI intact bilaterally Cranial nerves: Yes CN's II-XII intact bilaterally Extrem: General: Yes normal to inspection and Yes full ROM Psych: Appearance: grossly normal, well kempt and not disheveled Course Course Course Narrative: Labs ordered. Crisis consult placed Reevaluation(s) Reevaluation #1: Patient is sleeping comfortable in bed. Time: 18:15 MDM - Psych Lab Data Labs: Lab Results 04/04/22 Range/Units 16:56 COVID-19 (GARCIA) Negative (Negative) COVID-19 Clin Com See Note Discharge Plan Discharge Clinical Impression: Depression, Alcohol abuse Patient Disposition: Still a Patient Prescriptions: No Action No Known Home Meds
[2022-04-04 18:12] LABS: MANUAL DIFF FLAG NO
[2022-04-04 18:13] LABS: Basophils Absolute Auto 0.1 X10*3/uL (0.0-0.2); Basophils Percent Auto 0.8 % (0-2); Eosinophils Absolute Auto 0.3 X10*3/uL (0.0-0.4); Hematocrit 37.8 % (37.0-47.0); Hemoglobin 12.9 g/dl (12.0-16.0); Imm Gran Abs Auto 0.01 X10*3/uL (0.00-0.03); Imm Gran Pct Auto 0.2 % (0.0-0.4); Lymphocytes Absolute Auto 2.9 X10*3/uL (1.2-4.9); Lymphocytes Percent Auto 46.3 % (20-40); Mean Corpuscular HGB Conc 34.1 g/dl (31.0-35.0); Mean Corpuscular Hemoglobin 32.1 pg (27.0-33.0); Mean Platelet Volume 9.8 fL (9.4-12.3); Monocytes Absolute Auto 0.6 X10*3/uL (0.1-1.2); Monocytes Percent Auto 9.4 % (2-11); Neutrophils Absolute Auto 2.4 x10*3/uL (2.0-8.3); Neutrophils Percent Auto 39.3 % (45-73); Platelet Count 200 X10*3/uL (160-400); Red Blood Count 4.02 X10*6/uL (4.20-5.50); Red Cell Distribution Width 12.6 % (11.0-16.0); White Blood Count 6.2 X10*3/uL (4.8-10.8)
[2022-04-04 18:27] LABS: Alanine Aminotransferase 45 U/L (0-31); Albumin Level 4.2 g/dL (3.5-5.0); Alkaline Phosphatase 87 U/L (39-117); Anion Gap 17 (12-20); Aspartate Amino Transferase 46 U/L (5-31); Bilirubin Total 0.5 mg/dL (0.0-1.0); Blood Urea Nitrogen 8 mg/dL (9-16); Calcium 9.1 mg/dL (8.4-10.2); Carbon Dioxide 26 mmol/L (22-29); Chloride 101 mmol/L (96-108); Creatinine Clr Calc Pharmacy 84.7; Estimated Glomerular Filt Rate > 60; Ethanol 132 mg/dL; Glucose Random 98 mg/dL (60-115); Potassium 3.9 mmol/L (3.3-5.1); Sodium 140 mmol/L (135-145); Total Protein 7.4 g/dL (6.5-8.0)
[2022-04-04 20:27] LABS: Appearance Urine CLEAR; Color Urine YELLOW; Glucose Urine UA NEG (NEG); Leukocyte Esterase Urine 1+ (NEG); Nitrite Urine POS (NEG); UACC Culture Trigger YES; Urine Blood NEG (NEG); Urine Ketones NEG (NEG); Urine Protein NEG (NEG-TRACE)
[2022-04-04 20:41] LABS: Amphetamine Screen Urine Not Detected (Not Detect); Bacteria Urine 3+ /LPF; Barbiturates, Urine POSITIVE (Not Detect); Benzodiazepines Screen Urine Not Detected (Not Detect); Cannabinoid Screen Urine Not Detected (Not Detect); Cocaine Screen Urine Not Detected (Not Detect); Fentanyl, urine Not Detected (Not Detect); Opiate Screen Urine Not Detected (Not Detect); Phencyclidine Screen Urine Not Detected (Not Detect); RBC Urine 0-2 /HPF (0); Squamous Epithelial Cell Urine TRACE /LPF
[2022-04-04] MEDS: LORazepam 1 MG TABLET 2 MG PO (21:41)
--- NOTE | 2022-04-05 06:56 | PC.NURSE ---
Patient slept through the night, no distress observed/reported, Ativan 2 mg PO administered at 2141 as ordered with + effect, patient was assessed by [facility], patient engaged well, disposition detox bed search, patient will call [facility] in [place] in the morning, care team will coordinate the ride, VSS, behavior appropriate, denied SI/HI/AVH, will continue to monitor.
[2022-04-05 08:23] VITALS: BP 138/81; PULSE 90; RESP 16; O2SAT 95
--- NOTE | 2022-04-05 10:59 | PC.NURSE ---
SINCE 8 AM PT HAS BEEN TRYING TO GET IN TOUCH WITH [facility], WAS ON HOLD FOR 20+ MINS THIS MORNING AND HAS CONTINUED TO ATTEMPT CONTACT WITH THEM. IVONE AND DANIEL ARE AWARE AND WILL TRY REACHING OUT TO THEM WELL
== END 2022-04-05 12:24 | disposition home or self-care (01) ==
PROVIDERS: Physician Assistant; Emergency Provider Emergency Medicine; PCP Hospitalist
DX: F32.A Depression, unspecified (principal); F10.10 Alcohol abuse, uncomplicated; Y90.6 Blood alcohol level of 120-199 mg/100 ml; R45.851 Suicidal ideations; Z20.822 Contact with and (suspected) exposure to COVID-19
CPT/HCPCS: 36415; 80053; 80307; 81001; 82077; 85025; 87086; 87088; 87186; 87635; 99284

== ENCOUNTER 2022-05-12 14:17 | Inpatient (IN) | payer OTHER, SELFPAY ==
[2022-05-12 14:45] VITALS: BP 137/106; BP 145/86; PULSE 112; PULSE 73; RESP 18; TEMP 36.8; O2SAT 95; O2SAT 97; BMI 29.2
--- NOTE | 2022-05-12 15:21 | ECG_ITS ---
Test Reason : MED CLEARANCE Blood Pressure : / mmHG Vent. Rate : 097 BPM Atrial Rate : 097 BPM P-R Int : 206 ms QRS Dur : 090 ms QT Int : 370 ms P-R-T Axes : 064 050 028 degrees QTc Int : 469 ms Normal sinus rhythm Normal ECG When compared with ECG of 06-JAN-2022 23:12, No significant change was found Referred By: Mani Estevez Electronically Signed By:DIOGO ROJAS
[2022-05-12 15:31] LABS: Appearance Urine Cloudy; Color Urine Yellow; Glucose Urine UA Negative (Negative); Leukocyte Esterase Urine Moderate (2+) (Negative); Nitrite Urine Negative (Negative); PH 5.5 (5.0-9.0); Specific Gravity - Urine 1.015 (1.005-1.025); UMIC TRIGGER UACC YES; Urine Blood Negative (Negative); Urine Ketones Negative (Negative); Urine Protein Trace mg/dL (Neg-Trace)
[2022-05-12 15:36] LABS: Bacteria Urine 4+ (None Seen); Hyaline Casts Urine 0-2 /LPF (0-2); RBC Urine 0-2 /HPF (0-2); UACC Culture Trigger YES; WBC Urine 21-50 /HPF (0-5)
[2022-05-12 15:44] LABS: Amphetamine Screen Urine Not Detected (Not Detect); Barbiturates, Urine Not Detected (Not Detect); Benzodiazepines Screen Urine Not Detected (Not Detect); Cannabinoid Screen Urine Not Detected (Not Detect); Cocaine Screen Urine Not Detected (Not Detect); Fentanyl, urine Not Detected (Not Detect); Opiate Screen Urine Not Detected (Not Detect); Phencyclidine Screen Urine Not Detected (Not Detect)
[2022-05-12 15:45] LABS: COVID-19 Test Negative (Negative); IDNOW Serial# 16C4AD1C
--- NOTE | 2022-05-12 16:00 | ED.PSYCH ---
HPI - Psych General Chief Complaint: Psychiatric Symptoms Stated Complaint: CRISIS, ETOH Time Seen by Provider: 05/12/22 19:33 Source: patient Mode of arrival: ambulatory Limitations: no limitations History of Present Illness HPI Narrative: 56-year-old female presents to the ED drinking alcohol and wanting to no longer live. Patient states she was feeling sad and called 911 to bring her to the hospital. Patient states only dirnking alcohol. patient denies taking any drugs or her home meds. Patient states she wants to . Related Data Home Medications Medication Instructions Recorded Confirmed No Known Home Meds 05/12/22 05/12/22 Allergies Allergy/AdvReac Type Severity Reaction Status Date / Time No Known Allergies Allergy Unverified 05/11/20 16:55 [No Known Allergies*] Review of Systems Review of Systems: alcohol. wants to Yes all other systems are reviewed and are negative [facility] Past Medical History Medical History Depression ETOH abuse Mood disorder as late effect of traumatic brain injury TBI (traumatic brain injury) Social History Social History Alcohol intake: current Patient Tobacco Use Status: Tobacco use Unknown Advance Directives: Yes Advance Directives on File: Yes Advance Directives Date on File: 05/06/21 Physical Exam Vital Signs: Vital Signs: Last Vital Signs Temp 98.3 F 05/12/22 14:45 Pulse 112 H 05/12/22 14:45 Resp 18 05/12/22 14:45 BP 145/86 H 05/12/22 14:45 Pulse Ox 95 05/12/22 14:45 O2 Del Method 05/12/22 14:45 BMI result Body Mass Index 29.2 Const: Other: alcohol on breath General: cooperative, healthy appearing, comfortable, no acute distress, well developed, alert, awake and Physically active Orientation/consciousness: oriented to person, oriented to place, oriented to time and patient oriented x3 HEENT: Head: Yes normal to inspection, Yes No palpable skull fracture present, Yes normocephalic, Yes atraumatic and No abrasion Eyes: General: appearance normal, both eyes and all related structures Neck: Neck: Yes normal visual inspection, Yes full ROM, Yes no lymphadenopathy, Yes no meningeal signs, Yes trachea midline, Yes supple, No anterior neck swelling and No tender Chest: Chest palpation & inspection: normal inspection of the chest and normal palpation of entire chest wall Resp: Effort & Inspection: normal respiratory effort and able to speak in complete sentences Auscultation: clear to auscultation bilaterally Cardio: Jugular venous distension: no JVD Heart sounds: S1 normal heart sound present and S2 normal heart sound present GI: Inspection: Yes normal to inspection and No abdominal wall ecchymosis Palpation (GI): Soft to palpation, not firm, nontender, no guarding and not rigid : General: No CVA tenderness and Yes no CVA tenderness Back/Spine/Pelvis: Back: no CVA tenderness, No CVA tenderness and No back tenderness Skin: General skin exam: no rashes or lesions noted and elasticity normal Neuro: General: oriented to person, oriented to place, oriented to time, patient oriented x3, gait normal, tone normal, moves all extremities, no meningeal signs, no focal motor deficits and CN's II-XI intact bilaterally Extrem: General: Yes normal to inspection and Yes full ROM Psych: Appearance: grossly normal, well kempt and not disheveled Course Course Course Narrative: Patient will have labs drawn. Likely crisis evaluation medical cleared Reevaluation(s) Reevaluation #1: Patient labs are normal. EKG normal. QTC 469. Patient to be evaluated by behavior Health crisis. ALcohol level above 300 Time: 19:34 MDM - Psych MDM Narrative Medical decision making narrative: Depression. Alcohol use Lab Data Result diagrams: 05/12/22 16:23 05/12/22 16:23 Labs: Lab Results 05/12/22 05/12/22 05/12/22 Range/Units 15:21 15:21 15:21 WBC (4.8-10.8) X10*3/uL RBC (4.20-5.50) X10*6/uL Hgb (12.0-16.0) g/dl Hct (37.0-47.0) % MCV (80.0-98.0) fL MCH (27.0-33.0) pg MCHC (31.0-35.0) g/dl RDW (11.0-16.0) % Plt Count (160-400) X10*3/uL MPV (9.4-12.3) fL Immature Gran % (Auto) (0.0-0.4) % Neut % (Auto) (45-73) % Lymph % (Auto) (20-40) % [place] % (Auto) (2-11) % Eos % (Auto) (0-4) % Baso % (Auto) (0-2) % Lymph # (Auto) (1.2-4.9) X10*3/uL [place] # (Auto) (0.1-1.2) X10*3/uL Eos # (Auto) (0.0-0.4) X10*3/uL Baso # (Auto) (0.0-0.2) X10*3/uL Abs Immat Gran (auto) (0.00-0.03) X10*3/uL Absolute Neuts (auto) (2.0-8.3) x10*3/uL Absolute Nucleated RBC (0.0-0.012) X10*3/uL Nucleated RBC % (auto) (0.0-0.2) /100WBC PT (10.0-13.1) SEC INR (0.9-1.1) APTT (26.0-36.4) SEC Sodium (135-145) mmol/L Potassium (3.3-5.1) mmol/L Chloride (96-108) mmol/L Carbon Dioxide (22-29) mmol/L Anion Gap (12-20) BUN (9-16) mg/dL Creatinine (0.5-1.4) mg/dL Estim Creat Clear Calc Estimated GFR Random Glucose (60-115) mg/dL Calcium (8.4-10.2) mg/dL Total Bilirubin (0.0-1.0) mg/dL AST (5-31) U/L ALT (0-31) U/L Alkaline Phosphatase (39-117) U/L Total Protein (6.5-8.0) g/dL Albumin (3.5-5.0) g/dL Urine Color Yellow Urine Appearance Cloudy Urine pH 5.5 (5.0-9.0) Ur Specific [place] 1.015 (1.005-1.025) Urine Protein Trace (Neg-Trace) mg/dL Urine Glucose (UA) Negative (Negative) mg/dL Urine Ketones Negative (Negative) mg/dL Urine Blood Negative (Negative) Urine Nitrite Negative (Negative) Ur Leukocyte Esterase Moderate (2+) H (Negative) Urine RBC 0-2 (0-2) /HPF Urine WBC 21-50 H (0-5) /HPF Ur Squamous Epith Cells 3-5 (0-2) /HPF Urine Bacteria 4+ (None Seen) Hyaline Casts 0-2 (0-2) /LPF Salicylates (15-30) mg/dL Urine Opiates Screen Not Detected (Not Detect) Urine Fentanyl Screen Not Detected (Not Detect) Acetaminophen (<30) mcg/mL Ur Barbiturates Screen Not Detected (Not Detect) Ur Phencyclidine Scrn Not Detected (Not Detect) Ur Amphetamines Screen Not Detected (Not Detect) U Benzodiazepines Scrn Not Detected (Not Detect) Urine Cocaine Screen Not Detected (Not Detect) U Marijuana (THC) Screen Not Detected (Not Detect) Ethyl Alcohol mg/dL COVID-19 (GARCIA) Negative (Negative) COVID-19 Clin Com See Note 05/12/22 05/12/22 05/12/22 Range/Units 16:23 16:23 16:23 WBC 5.5 (4.8-10.8) X10*3/uL RBC 4.26 (4.20-5.50) X10*6/uL Hgb 13.1 (12.0-16.0) g/dl Hct 38.9 (37.0-47.0) % MCV 91.3 (80.0-98.0) fL MCH 30.8 (27.0-33.0) pg MCHC 33.7 (31.0-35.0) g/dl RDW 12.9 (11.0-16.0) % Plt Count 225 (160-400) X10*3/uL MPV 9.1 L (9.4-12.3) fL Immature Gran % (Auto) 0.0 (0.0-0.4) % Neut % (Auto) 34.6 L (45-73) % Lymph % (Auto) 56.2 H (20-40) % [place] % (Auto) 6.9 (2-11) % Eos % (Auto) 1.8 (0-4) % Baso % (Auto) 0.5 (0-2) % Lymph # (Auto) 3.1 (1.2-4.9) X10*3/uL [place] # (Auto) 0.4 (0.1-1.2) X10*3/uL Eos # (Auto) 0.1 (0.0-0.4) X10*3/uL Baso # (Auto) 0.0 (0.0-0.2) X10*3/uL Abs Immat Gran (auto) 0.00 (0.00-0.03) X10*3/uL Absolute Neuts (auto) 1.9 L (2.0-8.3) x10*3/uL Absolute Nucleated RBC 0.000 (0.0-0.012) X10*3/uL Nucleated RBC % (auto) 0.0 (0.0-0.2) /100WBC PT 11.2 (10.0-13.1) SEC INR 1.0 (0.9-1.1) APTT 35.0 (26.0-36.4) SEC Sodium 145 (135-145) mmol/L Potassium 3.6 (3.3-5.1) mmol/L Chloride 107 (96-108) mmol/L Carbon Dioxide 22 (22-29) mmol/L Anion Gap 20 (12-20) BUN 11 (9-16) mg/dL Creatinine 0.75 (0.5-1.4) mg/dL Estim Creat Clear Calc 76.2 Estimated GFR > 60 Random Glucose 117 H (60-115) mg/dL Calcium 9.0 (8.4-10.2) mg/dL Total Bilirubin 0.4 (0.0-1.0) mg/dL AST 38 H (5-31) U/L ALT 38 H (0-31) U/L Alkaline Phosphatase 82 (39-117) U/L Total Protein 7.4 (6.5-8.0) g/dL Albumin 4.2 (3.5-5.0) g/dL Urine Color Urine Appearance Urine pH (5.0-9.0) Ur Specific [place] (1.005-1.025) Urine Protein (Neg-Trace) mg/dL Urine Glucose (UA) (Negative) mg/dL Urine Ketones (Negative) mg/dL Urine Blood (Negative) Urine Nitrite (Negative) Ur Leukocyte Esterase (Negative) Urine RBC (0-2) /HPF Urine WBC (0-5) /HPF Ur Squamous Epith Cells (0-2) /HPF Urine Bacteria (None Seen) Hyaline Casts (0-2) /LPF Salicylates < 5.0 L (15-30) mg/dL Urine Opiates Screen (Not Detect) Urine Fentanyl Screen (Not Detect) Acetaminophen < 1 (<30) mcg/mL Ur Barbiturates Screen (Not Detect) Ur Phencyclidine Scrn (Not Detect) Ur Amphetamines Screen (Not Detect) U Benzodiazepines Scrn (Not Detect) Urine Cocaine Screen (Not Detect) U Marijuana (THC) Screen (Not Detect) Ethyl Alcohol 314 H* mg/dL COVID-19 (GARCIA) (Negative) COVID-19 Clin Com ECG Data Interpretation: Normal sinus rhythm. Ventricular rate 97. Pr interval 206. QRS 90. QTC 469. Negative STEMI Discharge Plan Discharge Clinical Impression: Depression, Alcohol use Patient Disposition: Still a Patient Prescriptions: No Action No Known Home Meds
[2022-05-12 16:28] LABS: MANUAL DIFF FLAG NO
[2022-05-12 16:30] LABS: Basophils Percent Auto 0.5 % (0-2); Eosinophils Absolute Auto 0.1 X10*3/uL (0.0-0.4); Eosinophils Percent Auto 1.8 % (0-4); Hematocrit 38.9 % (37.0-47.0); Hemoglobin 13.1 g/dl (12.0-16.0); Lymphocytes Absolute Auto 3.1 X10*3/uL (1.2-4.9); Lymphocytes Percent Auto 56.2 % (20-40); Mean Corpuscular HGB Conc 33.7 g/dl (31.0-35.0); Mean Corpuscular Hemoglobin 30.8 pg (27.0-33.0); Mean Corpuscular Volume 91.3 fL (80.0-98.0); Mean Platelet Volume 9.1 fL (9.4-12.3); Monocytes Absolute Auto 0.4 X10*3/uL (0.1-1.2); Monocytes Percent Auto 6.9 % (2-11); Neutrophils Absolute Auto 1.9 x10*3/uL (2.0-8.3); Neutrophils Percent Auto 34.6 % (45-73); Platelet Count 225 X10*3/uL (160-400); Red Blood Count 4.26 X10*6/uL (4.20-5.50); Red Cell Distribution Width 12.9 % (11.0-16.0); White Blood Count 5.5 X10*3/uL (4.8-10.8)
[2022-05-12 16:37] LABS: Prothrombin Time 11.2 SEC (10.0-13.1)
--- NOTE | 2022-05-12 16:39 | PC.NURSE ---
[facility] smart sheet completed.
[2022-05-12 16:46] LABS: Acetaminophen LAB < 1 mcg/mL (<30); Alanine Aminotransferase 38 U/L (0-31); Albumin Level 4.2 g/dL (3.5-5.0); Alkaline Phosphatase 82 U/L (39-117); Anion Gap 20 (12-20); Aspartate Amino Transferase 38 U/L (5-31); Bilirubin Total 0.4 mg/dL (0.0-1.0); Blood Urea Nitrogen 11 mg/dL (9-16); Carbon Dioxide 22 mmol/L (22-29); Chloride 107 mmol/L (96-108); Creatinine Clr Calc Pharmacy 76.2; Estimated Glomerular Filt Rate > 60; Ethanol 314 mg/dL; Glucose Random 117 mg/dL (60-115); Potassium 3.6 mmol/L (3.3-5.1); Salicylate < 5.0 mg/dL (15-30); Sodium 145 mmol/L (135-145); Total Protein 7.4 g/dL (6.5-8.0)
[2022-05-13 00:47] VITALS: BP 155/86; PULSE 109; RESP 17; TEMP 36.3; O2SAT 95
--- NOTE | 2022-05-13 05:41 | PC.NURSE ---
Patient slept through the night, no distress observed/reported, behavior appropriate and non concerning, patient engaged well with [facility], disposition Section 12 inpatient bed search, patient did not request any medication for withdrawal thus far however PRN Ativan 2 mg po Q4hrs available, med rec completed/pending provider's approval, will continue to monitor.
[2022-05-13] MEDS: LORazepam 1 MG TABLET 2 MG PO ×3 (07:39→16:20)
--- NOTE | 2022-05-13 08:13 | PC.NURSE ---
PT MEDICATED WITH [facility] FOR ALCOHOL WITHDRAW. SHE DENIES TACTILE STIMULUS, MILD TREMORS AND NAUSEA, SLEEPING, DECLINED BREAKFAST
[2022-05-13] MEDS: Lidocaine 4 % Patch ADH..PATCH 1 PATCH TRANSDERMA (09:30)
[2022-05-13 10:29] VITALS: BP 158/74; PULSE 112; RESP 18; TEMP 36.6; O2SAT 96
--- NOTE | 2022-05-13 12:03 | PC.NURSE ---
PT STATES FEELING SOME ANXIETY AND TREMORS, SHE IS AGREEABLE TO A PRN ATIV[facility] DOSE, SHE IS AWARE OF PENDING ADMISSION
[2022-05-13 15:30] VITALS: BP 139/75; PULSE 107; RESP 16; TEMP 36.6; O2SAT 95
--- NOTE | 2022-05-13 15:56 | PHA.MEDREC ---
Pharmacy Consult ? Medication Reconciliation Pharmacy has completed the medication reconciliation. Spoke with patient in . Patient recently filled all meds at [facility] [place] from previous facility.Patient last took meds in the begining of april.
[2022-05-13] MEDS: Acetaminophen 325 MG TABLET 650 MG PO (16:20)
--- NOTE | 2022-05-13 17:39 | PC.NURSE ---
Pt was admitted to M3 from [facility] at 1530. Signed CV. Pt?s intake reports SI with plan to take pills or hang self; pt denied SI during admission assessment.? UTOX: Ethyl alcohol HIGH.? Mood: Depressed; affect restricted.? Substance use: Heavy alcohol use.? 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 PsycheHx: Severe alcohol use disorder; Major depressive disorder. Pt reports drinking a sleeve daily. Reports hx of falling due to intoxication. Not placed on high risk.? VS at admission: 97.8, 107, 16, 139/75, 95%. CIWA 16 -- Consulted with provider and Ativan 2mg administered. ??During assessment pt is A&O, INAD, pleasant and cooperative. Denies SI/HI/AH/VH. Tremor observed when signing forms. After admission assessment, pt sts regarding Ativan, ?It?s starting to work.?
[2022-05-13] MEDS: QUEtiapine Fumarate 100 MG TABLET PO (20:02)
[2022-05-13] MEDS: hydrOXYzine HCL 50 MG TABLET PO (20:02)
[2022-05-13] MEDS: LORazepam 1 MG TABLET PO (20:02)
--- NOTE | 2022-05-14 00:32 | PC.NURSE ---
Katiana is currently sleeping. No visible signs of distress, no signs of sweating. Patient RR-16. Nurse did not wake patient for full CIWA assessment. Nurse will continue to monitor.
--- NOTE | 2022-05-14 04:05 | PC.NURSE ---
Katiana is sleeping at this time. No visible signs of distress noted. No visible sweating and patient is not fidgeting or restless. RR-16. Nurse did not wake patient for full CIWA evaluation. Nurse will continue to monitor patient.
[2022-05-14] MEDS: Acetaminophen 325 MG TABLET 650 MG PO ×3 (04:49→22:16)
[2022-05-14] MEDS: LORazepam 1 MG TABLET PO ×2 (04:49→16:45)
[2022-05-14 04:52] VITALS: BP 127/71; PULSE 112; RESP 18; TEMP 36.6; O2SAT 95
--- NOTE | 2022-05-14 04:53 | PC.NURSE ---
Patient awake at 0440. Patient reported that she had a mild headache. CIWA assessment was done and she scored an 11. Patient was given 1 mg Ativan PO prn and Tylenol 625 mg PO prn for her headache. Nurse will continue to monitor.
[2022-05-14] MEDS: Lidocaine 4 % Patch ADH..PATCH 1 PATCH TRANSDERMA (08:49)
[2022-05-14] MEDS: hydrOXYzine HCL 50 MG TABLET PO ×2 (08:51→22:16)
[2022-05-14 08:57] VITALS: BP 141/82; PULSE 94; RESP 18; TEMP 36.6; O2SAT 97
[2022-05-14] MEDS: LORazepam 1 MG TABLET 2 MG PO ×3 (09:02→22:26)
[2022-05-14 09:21] LABS: Estimated Average Glucose 117 mg/dL; Hemoglobin A1c % 5.7 %
[2022-05-14 09:24] LABS: Alanine Aminotransferase 34 U/L (0-31); Albumin Level 4.2 g/dL (3.5-5.0); Alkaline Phosphatase 83 U/L (39-117); Anion Gap 15 (12-20); Aspartate Amino Transferase 43 U/L (5-31); Bilirubin Direct 0.4 mg/dL (0.0-0.5); Bilirubin Total 1.1 mg/dL (0.0-1.0); Blood Urea Nitrogen 11 mg/dL (9-16); Calcium 9.6 mg/dL (8.4-10.2); Carbon Dioxide 25 mmol/L (22-29); Chloride 102 mmol/L (96-108); Cholesterol 234 mg/dL; Creatinine Clr Calc Pharmacy 78.3; Estimated Glomerular Filt Rate > 60; Glucose Fasting 119 mg/dL (60-99); HDL Cholesterol 77 mg/dL; LDL Cholesterol Calculated 126 mg/dl; Sodium 138 mmol/L (135-145); Total Protein 7.5 g/dL (6.5-8.0); Triglycerides 159 mg/dL
[2022-05-14 09:42] LABS: Thyroid Stimulating Hormone 3.21 uIU/mL (0.32-4.0)
[2022-05-14 10:09] LABS: Folate 19.8 ng/mL (> or = 4.0); Vitamin B12 250 pg/mL (200-900)
[2022-05-14] MEDS: Escitalopram Oxalate 20 MG TABLET PO (15:38)
[2022-05-14] MEDS: Gabapentin 300 MG CAPSULE PO ×2 (15:38→22:16)
[2022-05-14] MEDS: Loperamide HCl 2 MG CAPSULE PO (16:06)
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
[2022-05-14 22:10] VITALS: BP 141/89; PULSE 95; RESP 18; TEMP 36.7; O2SAT 97
[2022-05-14] MEDS: QUEtiapine Fumarate 100 MG TABLET PO (22:17)
[2022-05-14] MEDS: cloNIDine HCL 0.2 MG TABLET PO (22:17)
[2022-05-14] MEDS: QUEtiapine Fumarate 50 MG TABLET PO (22:17)
[2022-05-15] MEDS: LORazepam 1 MG TABLET PO ×3 (05:20→16:50)
[2022-05-15 08:00] VITALS: BP 141/72; PULSE 92; RESP 20; TEMP 36.3; O2SAT 96
[2022-05-15] MEDS: Escitalopram Oxalate 20 MG TABLET PO (08:24)
[2022-05-15] MEDS: Naltrexone HCl 50 MG TABLET PO (08:24)
[2022-05-15] MEDS: Gabapentin 300 MG CAPSULE PO ×3 (08:24→21:11)
[2022-05-15] MEDS: Lidocaine 4 % Patch ADH..PATCH 1 PATCH TRANSDERMA (08:24)
[2022-05-15] MEDS: hydrOXYzine HCL 50 MG TABLET PO ×2 (08:25→21:11)
[2022-05-15] MEDS: cloNIDine HCL 0.1 MG TABLET PO ×2 (08:25→14:07)
[2022-05-15] MEDS: Acetaminophen 325 MG TABLET 650 MG PO ×2 (12:33→21:11)
--- NOTE | 2022-05-15 14:09 | P.PNPSI_ITS ---
Subjective Subjective Date of Service: 05/15/22 Reason For Visit: depression/ si Interim History: calm, cooperative. sleeping in her bed late morning. feeling better since meds restarted. feels helped by the structure here. will continue to work with SW on CSS/dispo plan. informed pt that ativan taper would be done for her. per staff, upset about not being able to wear her shoes yesterday. pacing, appeared anxious. attended group. slept much of day shift. dep/anx 03/03. eating well. no SI/HI/AVH. Mental Status Exam Mental Status Exam Narrative: calm, cooperative. adequately dressed and groomed. no PMA/PMR. speech nml in rate, amount, loudness, tone, latency. affect constricted, normo-intense, non- labile. no SI/HI/AVH expressed. Diagnostics Vital Signs (24Hr): Vital Signs - 24 hr 05/14/22 22:10 05/15/22 08:00 Temperature 98.1 F 97.4 F Pulse Rate 95 92 Respiratory Rate 18 20 Blood Pressure 141/89 H 141/72 H Pulse Oximetry 97 96 Oxygen Delivery Method Room Air Room Air BMI result Body Mass Index 29.2 Labs Results: 05/12/22 16:23 05/14/22 08:50 Labs: Laboratory Results - last 48 hr 05/14/22 05/14/22 05/14/22 08:50 08:50 08:50 Sodium 138 Potassium 4.0 Chloride 102 Carbon Dioxide 25 Anion Gap 15 BUN 11 Creatinine 0.73 Estim Creat Clear Calc 78.3 Estimated GFR > 60 Fasting Glucose 119 H Estimat Average Glucose 117 Hemoglobin A1c % 5.7 Calcium 9.6 D Total Bilirubin 1.1 H Direct Bilirubin 0.4 AST 43 H ALT 34 H Alkaline Phosphatase 83 Total Protein 7.5 Albumin 4.2 Triglycerides 159 Cholesterol 234 LDL Cholesterol, Calc 126 HDL Cholesterol 77 Vitamin B12 250 Folate 19.8 TSH 3.21 Medications Medications Current Medications Acetaminophen (Acetaminophen 325 Mg Tablet) 650 mg PO Q6H PRN PRN Reason: Headache/Pain Mild Scale (1-3) Last Admin: 05/15/22 12:33 Dose: 650 mg Al Hydroxide/Mg Hydroxide (Magnesium Hydrox/Alum Hydrox 30 Ml Oral.Susp) 30 ml PO Q6H PRN PRN Reason: Heartburn/Nausea Clonidine HCl (Clonidine Hcl 0.1 Mg Tablet) 0.1 mg PO BID@0900,1500 [facility]; Protocol Last Admin: 05/15/22 14:07 Dose: 0.1 mg Clonidine HCl (Clonidine Hcl 0.2 Mg Tablet) 0.2 mg PO BEDTIME [facility]; Protocol Last Admin: 05/14/22 22:17 Dose: 0.2 mg Escitalopram Oxalate (Escitalopram Oxalate 20 Mg Tablet) 20 mg PO DAILY [facility] Last Admin: 05/15/22 08:24 Dose: 20 mg Gabapentin (Gabapentin 300 Mg Capsule) 300 mg PO TID [facility] Last Admin: 05/15/22 14:07 Dose: 300 mg Hydroxyzine HCl (Hydroxyzine Hcl 50 Mg Tablet) 50 mg PO BID [facility] Last Admin: 05/15/22 08:25 Dose: 50 mg Lidocaine (Lidocaine 4 % Patch Adh..Patch) 1 patch TRANSDERMA DAILY [facility] Last Admin: 05/15/22 08:24 Dose: 1 patch Loperamide HCl (Loperamide Hcl 2 Mg Capsule) 2 mg PO Q6H PRN PRN Reason: Diarrhea Last Admin: 05/14/22 16:06 Dose: 2 mg Lorazepam (Lorazepam 1 Mg Tablet) 1 mg PO Q2H PRN PRN Reason: CIWA 8-11 Last Admin: 05/15/22 14:07 Dose: 1 mg Lorazepam (Lorazepam 1 Mg Tablet) 2 mg PO Q2H PRN PRN Reason: CIWA 12-15 Last Admin: 05/14/22 22:26 Dose: 2 mg Lorazepam (Lorazepam 1 Mg Tablet) 3 mg PO Q2H PRN PRN Reason: CIWA > 15. and call Magnesium Hydroxide (Milk Of Magnesia 30 Ml Oral.Susp) 30 ml PO DAILY PRN PRN Reason: Constipation Naltrexone HCl (Naltrexone Hcl 50 Mg Tablet) 50 mg PO DAILY [facility] Last Admin: 05/15/22 08:24 Dose: 50 mg Nicotine Polacrilex (Nicotine Polacrilex 2 Mg Gum) 2 mg BUCCAL Q2H PRN PRN Reason: Nicotine Cravings Quetiapine Fumarate (Quetiapine Fumarate 100 Mg Tablet) 100 mg PO BEDTIME [facility] Last Admin: 05/14/22 22:17 Dose: 100 mg Quetiapine Fumarate (Quetiapine Fumarate 50 Mg Tablet) 50 mg PO BEDTIME PRN PRN Reason: insomnia Last Admin: 05/14/22 22:17 Dose: 50 mg Trazodone HCl (Trazodone Hcl 50 Mg Tablet) 50 mg PO BEDTIME PRN PRN Reason: Insomnia Allergies Allergies Allergy/AdvReac Type Severity Reaction Status Date / Time No Known Allergies Allergy Unverified 05/11/20 16:55 [No Known Allergies*] Assessment & Plan Assessment & Plan (1) Alcohol use: Status: Acute Code(s): Z72.89 - Other problems related to lifestyle (2) Depression: Status: Acute Code(s): F32.A - Depression, unspecified Plan schedule ativan taper, as pt has been on ativan per [facility] protocol for more than 24H. restarted outpt meds, which pt has apparently not been taking properly. stabilize mood, refer for CSS. I spent ___20___ minutes with the patient and/or on the patient floor today, greater than?50% of which was spent counseling/coordinating care. Patient educated on: medication risk/benefits and therapeutic strategies Reason for contiued inpatient stay Substantial Risk for: inability to function and rapid decompensation
[2022-05-15] MEDS: Folic Acid 1 MG TABLET PO (15:41)
[2022-05-15] MEDS: Multivitamin TABLET 1 TAB PO (15:41)
[2022-05-15] MEDS: Cyanocobalamin (Vitamin B-12) 100 MCG TABLET PO (15:41)
[2022-05-15 19:35] VITALS: BP 122/72; PULSE 88; RESP 16; TEMP 36.2; O2SAT 96
[2022-05-15] MEDS: cloNIDine HCL 0.2 MG TABLET PO (21:11)
[2022-05-15] MEDS: QUEtiapine Fumarate 100 MG TABLET PO (21:11)
[2022-05-15] MEDS: LORazepam 1 MG TABLET 2 MG PO (21:12)
--- NOTE | 2022-05-15 21:21 | PC.NURSE ---
Pt was observed in hallway with unsteady gait and sleeping throughout the shift. Pt's roommate stated the pt informed her the pt fell asleep or almost fell asleep in the shower. Ativan 1mg held at 1900. Pt received scheduled 2100 Ativan 2mg. Discussed with pt risk of falls and encouraged her to sit before standing, stand before walking and, if at any time she feels unsteady, dizzy or lightheaded, to sit in place even if she lowers herself to the floor. Pt verbalized understanding and agrees. Communicated pt status with charge nurse.
[2022-05-16 08:30] VITALS: BP 132/67; PULSE 78; RESP 16; TEMP 36.6
[2022-05-16] MEDS: Lidocaine 4 % Patch ADH..PATCH 1 PATCH TRANSDERMA (08:41)
[2022-05-16] MEDS: LORazepam 1 MG TABLET PO ×3 (08:42→20:44)
[2022-05-16] MEDS: cloNIDine HCL 0.1 MG TABLET PO ×2 (08:42→16:03)
[2022-05-16] MEDS: hydrOXYzine HCL 50 MG TABLET PO ×2 (08:42→20:45)
[2022-05-16] MEDS: Naltrexone HCl 50 MG TABLET PO (08:42)
[2022-05-16] MEDS: Multivitamin TABLET 1 TAB PO (08:42)
[2022-05-16] MEDS: Escitalopram Oxalate 20 MG TABLET PO (08:42)
[2022-05-16] MEDS: Cyanocobalamin (Vitamin B-12) 100 MCG TABLET PO (08:42)
[2022-05-16] MEDS: Gabapentin 300 MG CAPSULE PO ×3 (08:42→20:45)
[2022-05-16 09:00] VITALS: BMI 32.3
[2022-05-16] MEDS: Folic Acid 1 MG TABLET PO (09:42)
--- NOTE | 2022-05-16 13:47 | P.PNPSI_ITS ---
Subjective Subjective Date of Service: 05/16/22 Reason For Visit: depression/ si Interim History: Pt upset about not having place to go. is the same thing, no one does anything for me She denies SI/HI. She reports feeling depressed. No side effects with medications. She reports feeling anxious. Pt agreed to call CSS in [place]. Can't go back to [facility] due to behavioral issues there. No behavioral concerns here. Medication Compliance: Yes Review of Systems Review of Systems alcohol. wants to Yes all other systems are reviewed and are negative Mental Status Exam Mental Status Exam Narrative: calm, cooperative. adequately dressed and groomed. no PMA/PMR. speech nml in rate, amount, loudness, tone, latency. affect constricted, normo-intense, non- labile. no SI/HI/AVH expressed. Diagnostics Vital Signs (24Hr): Vital Signs - 24 hr 05/15/22 19:35 05/16/22 08:30 05/16/22 16:10 Temperature 97.2 F 97.8 F 98.1 F Pulse Rate 88 78 90 Respiratory Rate 16 16 16 Blood Pressure 122/72 132/67 145/90 H Pulse Oximetry 96 94 Oxygen Delivery Method Room Air Room Air Room Air BMI result Body Mass Index 32.3 Labs Results: 05/12/22 16:23 05/14/22 08:50 Medications Medications Current Medications Acetaminophen (Acetaminophen 325 Mg Tablet) 650 mg PO Q6H PRN PRN Reason: Headache/Pain Mild Scale (1-3) Last Admin: 05/15/22 21:11 Dose: 650 mg Al Hydroxide/Mg Hydroxide (Magnesium Hydrox/Alum Hydrox 30 Ml Oral.Susp) 30 ml PO Q6H PRN PRN Reason: Heartburn/Nausea Clonidine HCl (Clonidine Hcl 0.1 Mg Tablet) 0.1 mg PO BID@0900,1500 [facility]; Protocol Last Admin: 05/16/22 16:03 Dose: 0.1 mg Clonidine HCl (Clonidine Hcl 0.2 Mg Tablet) 0.2 mg PO BEDTIME [facility]; Protocol Last Admin: 05/15/22 21:11 Dose: 0.2 mg Cyanocobalamin (Cyanocobalamin (Vitamin B-12) 100 Mcg Tablet) 100 mcg PO DAILY [facility] Last Admin: 05/16/22 08:42 Dose: 100 mcg Escitalopram Oxalate (Escitalopram Oxalate 20 Mg Tablet) 20 mg PO DAILY [facility] Last Admin: 05/16/22 08:42 Dose: 20 mg Folic Acid (Folic Acid 1 Mg Tablet) 1 mg PO DAILY [facility] Last Admin: 05/16/22 09:42 Dose: 1 mg Gabapentin (Gabapentin 300 Mg Capsule) 300 mg PO TID [facility] Last Admin: 05/16/22 16:03 Dose: 300 mg Hydroxyzine HCl (Hydroxyzine Hcl 50 Mg Tablet) 50 mg PO BID [facility] Last Admin: 05/16/22 08:42 Dose: 50 mg Lidocaine (Lidocaine 4 % Patch Adh..Patch) 1 patch TRANSDERMA DAILY [facility] Last Admin: 05/16/22 08:41 Dose: 1 patch Loperamide HCl (Loperamide Hcl 2 Mg Capsule) 2 mg PO Q6H PRN PRN Reason: Diarrhea Last Admin: 05/14/22 16:06 Dose: 2 mg Lorazepam (Lorazepam 1 Mg Tablet) 1 mg PO BID [facility] Stop: 05/17/22 09:01 Lorazepam (Lorazepam 0.5 Mg Tablet) 0.5 mg PO BID [facility] Stop: 05/18/22 09:01 Lorazepam (Lorazepam 1 Mg Tablet) 1 mg PO BEDTIME [facility] Stop: 05/16/22 23:59 Magnesium Hydroxide (Milk Of Magnesia 30 Ml Oral.Susp) 30 ml PO DAILY PRN PRN Reason: Constipation Multivitamins/Vitamin C (Multivitamin Tablet) 1 tab PO DAILY [facility] Last Admin: 05/16/22 08:42 Dose: 1 tab Naltrexone HCl (Naltrexone Hcl 50 Mg Tablet) 50 mg PO DAILY [facility] Last Admin: 05/16/22 08:42 Dose: 50 mg Nicotine Polacrilex (Nicotine Polacrilex 2 Mg Gum) 2 mg BUCCAL Q2H PRN PRN Reason: Nicotine Cravings Quetiapine Fumarate (Quetiapine Fumarate 100 Mg Tablet) 100 mg PO BEDTIME [facility] Last Admin: 05/15/22 21:11 Dose: 100 mg Quetiapine Fumarate (Quetiapine Fumarate 50 Mg Tablet) 50 mg PO BEDTIME PRN PRN Reason: insomnia Last Admin: 05/14/22 22:17 Dose: 50 mg Trazodone HCl (Trazodone Hcl 50 Mg Tablet) 50 mg PO BEDTIME PRN PRN Reason: Insomnia Allergies Allergies Allergy/AdvReac Type Severity Reaction Status Date / Time No Known Allergies Allergy Unverified 05/11/20 16:55 [No Known Allergies*] Assessment & Plan Assessment & Plan (1) Depression: Status: Acute Code(s): F32.A - Depression, unspecified (2) Alcohol use: Status: Acute Code(s): Z72.89 - Other problems related to lifestyle Plan schedule ativan taper, as pt has been on ativan per [facility] protocol for more than 24H. restarted outpt meds, which pt has apparently not been taking properly. stabilize mood, refer for CSS. 05/16 continue current medications. I spent minutes with the patient and/or on the patient floor today, greater than?50% of which was spent counseling/coordinating care. Reason for contiued inpatient stay Substantial Risk for: harm to self
[2022-05-16 16:10] VITALS: BP 145/90; PULSE 90; RESP 16; TEMP 36.7; O2SAT 94
[2022-05-16 20:40] VITALS: BP 132/84; PULSE 84; RESP 16; TEMP 36.5; O2SAT 94
[2022-05-16] MEDS: QUEtiapine Fumarate 100 MG TABLET PO (20:45)
[2022-05-16] MEDS: cloNIDine HCL 0.2 MG TABLET PO (20:45)
[2022-05-17] MEDS: Naltrexone HCl 50 MG TABLET PO (08:34)
[2022-05-17] MEDS: Multivitamin TABLET 1 TAB PO (08:34)
[2022-05-17] MEDS: Folic Acid 1 MG TABLET PO (08:35)
[2022-05-17] MEDS: hydrOXYzine HCL 50 MG TABLET PO ×2 (08:35→20:09)
[2022-05-17] MEDS: Cyanocobalamin (Vitamin B-12) 100 MCG TABLET PO (08:35)
[2022-05-17] MEDS: LORazepam 1 MG TABLET PO ×3 (08:36→20:10)
[2022-05-17] MEDS: Gabapentin 300 MG CAPSULE PO ×3 (08:36→20:10)
[2022-05-17] MEDS: Escitalopram Oxalate 20 MG TABLET PO (08:37)
[2022-05-17] MEDS: cloNIDine HCL 0.1 MG TABLET PO ×2 (08:37→14:54)
[2022-05-17] MEDS: Lidocaine 4 % Patch ADH..PATCH 1 PATCH TRANSDERMA (08:43)
[2022-05-17 08:45] VITALS: BP 125/58; PULSE 86; RESP 18; TEMP 36.4; O2SAT 96
[2022-05-17] MEDS: Nitrofurantoin Monohyd/M-Cryst 100 MG CAPSULE PO ×2 (12:03→20:22)
[2022-05-17 14:49] VITALS: PULSE 89; RESP 18; TEMP 36.7; O2SAT 98
--- NOTE | 2022-05-17 15:03 | HO.PSYCHPN ---
Subjective Subjective Date of Service: 05/17/22 Reason For Visit: depression/ si Interim History: calm, cooperative, pleasant. does not recall using racial/ethnic slurs, says that is not like her (MD informed her that continued use of such language would result in her administrative discharge). states she is otherwise feeling better physically, although mood is depressed. asks about antibiotics for UTI. asks about an ongoing script for ativan, which was denied by MD with explanation it will only be used for detox. per staff, not attending many groups. c/o dysuria and frequency overnight. urine POS for ecoli. attended art yesterday. sleeping a lot. using racial slurs on the phone. c/o anxiety. eating well. grumpy. Mental Status Exam Mental Status Exam Narrative: calm, cooperative. adequately dressed and groomed. no PMA/PMR. speech nml in rate, amount, loudness, tone, latency. affect constricted, normo-intense, non-labile. no SI/HI/AVH expressed. Diagnostics Vital Signs (24Hr): Vital Signs - 24 hr 05/16/22 16:10 05/16/22 20:40 05/17/22 08:45 Temperature 98.1 F 97.7 F 97.6 F Pulse Rate 90 84 86 Respiratory Rate 16 16 18 Blood Pressure 145/90 H 132/84 125/58 L Pulse Oximetry 94 94 96 Oxygen Delivery Method Room Air Room Air Room Air 05/17/22 14:49 Temperature 98.1 F Pulse Rate 89 Respiratory Rate 18 Blood Pressure Pulse Oximetry 98 Oxygen Delivery Method Room Air BMI result Body Mass Index 32.3 Labs Results: 05/12/22 16:23 05/14/22 08:50 Medications Medications Current Medications Acetaminophen (Acetaminophen 325 Mg Tablet) 650 mg PO Q6H PRN PRN Reason: Headache/Pain Mild Scale (1-3) Last Admin: 05/15/22 21:11 Dose: 650 mg Al Hydroxide/Mg Hydroxide (Magnesium Hydrox/Alum Hydrox 30 Ml Oral.Susp) 30 ml PO Q6H PRN PRN Reason: Heartburn/Nausea Clonidine HCl (Clonidine Hcl 0.1 Mg Tablet) 0.1 mg PO BID@0900,1500 [facility]; Protocol Last Admin: 05/17/22 14:54 Dose: 0.1 mg Clonidine HCl (Clonidine Hcl 0.1 Mg Tablet) 0.3 mg PO BEDTIME [facility]; Protocol Cyanocobalamin (Cyanocobalamin (Vitamin B-12) 100 Mcg Tablet) 100 mcg PO DAILY [facility] Last Admin: 05/17/22 08:35 Dose: 100 mcg Escitalopram Oxalate (Escitalopram Oxalate 20 Mg Tablet) 20 mg PO DAILY [facility] Last Admin: 05/17/22 08:37 Dose: 20 mg Folic Acid (Folic Acid 1 Mg Tablet) 1 mg PO DAILY [facility] Last Admin: 05/17/22 08:35 Dose: 1 mg Gabapentin (Gabapentin 300 Mg Capsule) 300 mg PO TID [facility] Last Admin: 05/17/22 14:54 Dose: 300 mg Hydroxyzine HCl (Hydroxyzine Hcl 50 Mg Tablet) 50 mg PO BID [facility] Last Admin: 05/17/22 08:35 Dose: 50 mg Lidocaine (Lidocaine 4 % Patch Adh..Patch) 1 patch TRANSDERMA DAILY [facility] Last Admin: 05/17/22 08:43 Dose: 1 patch Loperamide HCl (Loperamide Hcl 2 Mg Capsule) 2 mg PO Q6H PRN PRN Reason: Diarrhea Last Admin: 05/14/22 16:06 Dose: 2 mg Lorazepam (Lorazepam 1 Mg Tablet) 1 mg PO ONCE ONE Stop: 05/17/22 21:01 Lorazepam (Lorazepam 0.5 Mg Tablet) 0.5 mg PO BID [facility] Stop: 05/19/22 09:01 Magnesium Hydroxide (Milk Of Magnesia 30 Ml Oral.Susp) 30 ml PO DAILY PRN PRN Reason: Constipation Multivitamins/Vitamin C (Multivitamin Tablet) 1 tab PO DAILY [facility] Last Admin: 05/17/22 08:34 Dose: 1 tab Naltrexone HCl (Naltrexone Hcl 50 Mg Tablet) 50 mg PO DAILY [facility] Last Admin: 05/17/22 08:34 Dose: 50 mg Nicotine Polacrilex (Nicotine Polacrilex 2 Mg Gum) 2 mg BUCCAL Q2H PRN PRN Reason: Nicotine Cravings Nitrofurantoin Macrocrystals (Nitrofurantoin Monohyd/M-Cryst 100 Mg Capsule) 100 mg PO Q12H [facility] Stop: 05/22/22 11:59 Last Admin: 05/17/22 12:03 Dose: 100 mg Quetiapine Fumarate (Quetiapine Fumarate 100 Mg Tablet) 100 mg PO BEDTIME [facility] Last Admin: 05/16/22 20:45 Dose: 100 mg Quetiapine Fumarate (Quetiapine Fumarate 50 Mg Tablet) 50 mg PO BEDTIME PRN PRN Reason: insomnia Last Admin: 05/14/22 22:17 Dose: 50 mg Trazodone HCl (Trazodone Hcl 50 Mg Tablet) 50 mg PO BEDTIME PRN PRN Reason: Insomnia Allergies Allergies Allergy/AdvReac Type Severity Reaction Status Date / Time No Known Allergies Allergy Unverified 05/11/20 16:55 [No Known Allergies*] Assessment & Plan Assessment & Plan (1) Depression: Status: Acute Code(s): F32.A - Depression, unspecified (2) Alcohol use: Status: Acute Code(s): Z72.89 - Other problems related to lifestyle Plan schedule ativan taper, as pt has been on ativan per [facility] protocol for more than 24H. restarted outpt meds, which pt has apparently not been taking properly. stabilize mood, refer for CSS. 05/16 continue current medications. 05/17: taper ends friday, pt tolerating it well. continue other psych meds. continue to investigate CSS options. I spent ___20___ minutes with the patient and/or on the patient floor today, greater than?50% of which was spent counseling/coordinating care. Reason for contiued inpatient stay Substantial Risk for: inability to function and rapid decompensation
[2022-05-17 18:00] VITALS: BP 100/78; PULSE 89; RESP 16; TEMP 36.7; O2SAT 98
[2022-05-17 20:05] VITALS: BP 120/65; PULSE 79; RESP 16; TEMP 36.6; O2SAT 95
[2022-05-17] MEDS: cloNIDine HCL 0.1 MG TABLET 0.3 MG PO (20:09)
[2022-05-17] MEDS: QUEtiapine Fumarate 100 MG TABLET PO (20:10)
--- NOTE | 2022-05-18 07:38 | HO.PSYCHPN ---
Subjective Subjective Date of Service: 05/18/22 Reason For Visit: depression/ si Subjective Notes: Conditional Voluntary Healthcare Proxy: No Guardianship: No Medical Problems Affecting Mental Status: No Interim History: Patient was seen and discussed in rounds today. Records and plans were reviewed. She has been stable. She is anxious about discharge planning. She is hoping that she can get a bed at [facility]. She is med compliant. She denies any side effects. She states that she is doing well with the decrease of Ativan. Eating and sleeping adequately. No changes were made today Medication Compliance: Yes Side effects from medications: No Review of Systems Review of Systems alcohol. wants to Yes all other systems are reviewed and are negative Mental Status Exam Mental Status Exam Narrative: In today's visit she is alert, oriented and pleasant. Normal speech. Moderate eye contact. Affect is appropriate and contained. No signs of psychosis. Cognitively is intact. Judgment is intact Diagnostics Vital Signs (24Hr): Vital Signs - 24 hr 05/17/22 08:45 05/17/22 14:49 05/17/22 18:00 Temperature 97.6 F 98.1 F 98.1 F Pulse Rate 86 89 89 Respiratory Rate 18 18 16 Blood Pressure 125/58 L 100/78 Pulse Oximetry 96 98 98 Oxygen Delivery Method Room Air Room Air Room Air 05/17/22 20:05 Temperature 97.8 F Pulse Rate 79 Respiratory Rate 16 Blood Pressure 120/65 Pulse Oximetry 95 Oxygen Delivery Method Room Air BMI result Body Mass Index 32.3 Labs Results: 05/12/22 16:23 05/14/22 08:50 Medications Medications Current Medications Acetaminophen (Acetaminophen 325 Mg Tablet) 650 mg PO Q6H PRN PRN Reason: Headache/Pain Mild Scale (1-3) Last Admin: 05/15/22 21:11 Dose: 650 mg Al Hydroxide/Mg Hydroxide (Magnesium Hydrox/Alum Hydrox 30 Ml Oral.Susp) 30 ml PO Q6H PRN PRN Reason: Heartburn/Nausea Clonidine HCl (Clonidine Hcl 0.1 Mg Tablet) 0.1 mg PO BID@0900,1500 [facility]; Protocol Last Admin: 05/17/22 14:54 Dose: 0.1 mg Clonidine HCl (Clonidine Hcl 0.1 Mg Tablet) 0.3 mg PO BEDTIME [facility]; Protocol Last Admin: 05/17/22 20:09 Dose: 0.3 mg Cyanocobalamin (Cyanocobalamin (Vitamin B-12) 100 Mcg Tablet) 100 mcg PO DAILY [facility] Last Admin: 05/17/22 08:35 Dose: 100 mcg Escitalopram Oxalate (Escitalopram Oxalate 20 Mg Tablet) 20 mg PO DAILY [facility] Last Admin: 05/17/22 08:37 Dose: 20 mg Folic Acid (Folic Acid 1 Mg Tablet) 1 mg PO DAILY [facility] Last Admin: 05/17/22 08:35 Dose: 1 mg Gabapentin (Gabapentin 300 Mg Capsule) 300 mg PO TID [facility] Last Admin: 05/17/22 20:10 Dose: 300 mg Hydroxyzine HCl (Hydroxyzine Hcl 50 Mg Tablet) 50 mg PO BID [facility] Last Admin: 05/17/22 20:09 Dose: 50 mg Lidocaine (Lidocaine 4 % Patch Adh..Patch) 1 patch TRANSDERMA DAILY [facility] Last Admin: 05/17/22 08:43 Dose: 1 patch Loperamide HCl (Loperamide Hcl 2 Mg Capsule) 2 mg PO Q6H PRN PRN Reason: Diarrhea Last Admin: 05/14/22 16:06 Dose: 2 mg Lorazepam (Lorazepam 0.5 Mg Tablet) 0.5 mg PO BID [facility] Stop: 05/19/22 09:01 Magnesium Hydroxide (Milk Of Magnesia 30 Ml Oral.Susp) 30 ml PO DAILY PRN PRN Reason: Constipation Multivitamins/Vitamin C (Multivitamin Tablet) 1 tab PO DAILY [facility] Last Admin: 05/17/22 08:34 Dose: 1 tab Naltrexone HCl (Naltrexone Hcl 50 Mg Tablet) 50 mg PO DAILY [facility] Last Admin: 05/17/22 08:34 Dose: 50 mg Nicotine Polacrilex (Nicotine Polacrilex 2 Mg Gum) 2 mg BUCCAL Q2H PRN PRN Reason: Nicotine Cravings Nitrofurantoin Macrocrystals (Nitrofurantoin Monohyd/M-Cryst 100 Mg Capsule) 100 mg PO BID [facility] Last Admin: 05/17/22 20:22 Dose: 100 mg Quetiapine Fumarate (Quetiapine Fumarate 100 Mg Tablet) 100 mg PO BEDTIME [facility] Last Admin: 05/17/22 20:10 Dose: 100 mg Quetiapine Fumarate (Quetiapine Fumarate 50 Mg Tablet) 50 mg PO BEDTIME PRN PRN Reason: insomnia Last Admin: 05/14/22 22:17 Dose: 50 mg Trazodone HCl (Trazodone Hcl 50 Mg Tablet) 50 mg PO BEDTIME PRN PRN Reason: Insomnia Allergies Allergies Allergy/AdvReac Type Severity Reaction Status Date / Time No Known Allergies Allergy Unverified 05/11/20 16:55 [No Known Allergies*] Assessment & Plan Assessment & Plan (1) Depression: Status: Acute Code(s): F32.A - Depression, unspecified (2) Alcohol use: Status: Acute Code(s): Z72.89 - Other problems related to lifestyle Plan schedule ativan taper, as pt has been on ativan per [facility] protocol for more than 24H. restarted outpt meds, which pt has apparently not been taking properly. stabilize mood, refer for CSS. 05/16 continue current medications. 05/17: taper ends friday, pt tolerating it well. continue other psych meds. continue to investigate CSS options. 05/18: Continue current regimen and plans. Ativan taper ends on Friday I spent minutes with the patient and/or on the patient floor today, greater than?50% of which was spent counseling/coordinating care. Reason for contiued inpatient stay Substantial Risk for: med/psych decompensation
[2022-05-18 08:31] VITALS: BP 118/67; PULSE 72; RESP 18; TEMP 36.2; O2SAT 96
[2022-05-18] MEDS: Gabapentin 300 MG CAPSULE PO ×3 (08:33→20:44)
[2022-05-18] MEDS: Cyanocobalamin (Vitamin B-12) 100 MCG TABLET PO (08:33)
[2022-05-18] MEDS: Folic Acid 1 MG TABLET PO (08:33)
[2022-05-18] MEDS: Naltrexone HCl 50 MG TABLET PO (08:33)
[2022-05-18] MEDS: Multivitamin TABLET 1 TAB PO (08:33)
[2022-05-18] MEDS: hydrOXYzine HCL 50 MG TABLET PO ×3 (08:33→20:44)
[2022-05-18] MEDS: cloNIDine HCL 0.1 MG TABLET PO ×2 (08:33→15:39)
[2022-05-18] MEDS: Escitalopram Oxalate 20 MG TABLET PO (08:33)
[2022-05-18] MEDS: Nitrofurantoin Monohyd/M-Cryst 100 MG CAPSULE PO ×2 (08:33→20:44)
[2022-05-18] MEDS: Lidocaine 4 % Patch ADH..PATCH 1 PATCH TRANSDERMA (08:34)
[2022-05-18] MEDS: LORazepam 0.5 MG TABLET PO ×2 (08:34→20:43)
[2022-05-18] MEDS: Acetaminophen 325 MG TABLET 650 MG PO (13:57)
[2022-05-18] MEDS: Hydrocortisone 1 % Cream 28.35 GM TUBE 1 APPL TOPICAL (13:58)
[2022-05-18 18:00] VITALS: BP 99/55; PULSE 73; RESP 16; TEMP 36.3; O2SAT 99
[2022-05-18] MEDS: QUEtiapine Fumarate 100 MG TABLET PO (20:43)
[2022-05-18] MEDS: cloNIDine HCL 0.1 MG TABLET 0.3 MG PO (20:44)
--- NOTE | 2022-05-19 01:05 | PC.NURSE ---
Pt A&O, INAD, pleasant and cooperative, anxious and worried regarding discharge and placement options. Observed in milieu watching television. Medication adherent. Pt was first to ask for medication and went to bed after taking medication @2029.
[2022-05-19 09:15] VITALS: BP 119/73; PULSE 72; RESP 18; TEMP 36.6; O2SAT 97
[2022-05-19] MEDS: Hydrocortisone 1 % Cream 28.35 GM TUBE 1 APPL TOPICAL (09:21)
[2022-05-19] MEDS: Lidocaine 4 % Patch ADH..PATCH 1 PATCH TRANSDERMA (09:22)
[2022-05-19] MEDS: cloNIDine HCL 0.1 MG TABLET PO ×2 (09:22→17:31)
[2022-05-19] MEDS: LORazepam 0.5 MG TABLET PO (09:23)
[2022-05-19] MEDS: Cyanocobalamin (Vitamin B-12) 100 MCG TABLET PO (09:23)
[2022-05-19] MEDS: hydrOXYzine HCL 50 MG TABLET PO ×2 (09:23→20:12)
[2022-05-19] MEDS: Acetaminophen 325 MG TABLET 650 MG PO (09:23)
[2022-05-19] MEDS: Naltrexone HCl 50 MG TABLET PO (09:23)
[2022-05-19] MEDS: Multivitamin TABLET 1 TAB PO (09:23)
[2022-05-19] MEDS: Folic Acid 1 MG TABLET PO (09:23)
[2022-05-19] MEDS: Escitalopram Oxalate 20 MG TABLET PO (09:23)
[2022-05-19] MEDS: Nitrofurantoin Monohyd/M-Cryst 100 MG CAPSULE PO ×2 (09:24→20:12)
--- NOTE | 2022-05-19 09:32 | HO.PSYCHPN ---
Subjective Subjective Date of Service: 05/19/22 Reason For Visit: depression/ si Subjective Notes: Conditional Voluntary Healthcare Proxy: No Guardianship: No Medical Problems Affecting Mental Status: No Interim History: Patient was seen and discussed in rounds today. Records and plans were reviewed. She is very preoccupied and anxious about discharge plans. She has some names and phone numbers for [employer] programs which she will review with social work tomorrow. She is complaining of back pain and is requesting a muscle relaxant. I will order tizanidine 2 mg b.i.d. p.r.n.. She continues to have some passive suicidal ideations with no plans or intent. No behavioral issues. No racial slurs after she was confronted a couple of days ago. She is using her PRNs effectively. No other changes were made today Medication Compliance: Yes Side effects from medications: No Review of Systems Review of Systems Back pain and spasm Yes all other systems are reviewed and are negative Mental Status Exam Mental Status Exam Narrative: In today's visit she is alert, oriented and pleasant. Normal speech. Moderate eye contact. Affect is appropriate and contained. No signs of psychosis. Cognitively is intact. Judgment is intact Diagnostics Vital Signs (24Hr): Vital Signs - 24 hr 05/18/22 18:00 Temperature 97.4 F Pulse Rate 73 Respiratory Rate 16 Blood Pressure 99/55 L Pulse Oximetry 99 Oxygen Delivery Method Room Air BMI result Body Mass Index 32.3 Labs Results: 05/12/22 16:23 05/14/22 08:50 Medications Medications Current Medications Acetaminophen (Acetaminophen 325 Mg Tablet) 650 mg PO Q6H PRN PRN Reason: Headache/Pain Mild Scale (1-3) Last Admin: 05/19/22 09:23 Dose: 650 mg Al Hydroxide/Mg Hydroxide (Magnesium Hydrox/Alum Hydrox 30 Ml Oral.Susp) 30 ml PO Q6H PRN PRN Reason: Heartburn/Nausea Clonidine HCl (Clonidine Hcl 0.1 Mg Tablet) 0.1 mg PO BID@0900,1500 [facility]; Protocol Last Admin: 05/19/22 09:22 Dose: 0.1 mg Clonidine HCl (Clonidine Hcl 0.1 Mg Tablet) 0.3 mg PO BEDTIME [facility]; Protocol Last Admin: 05/18/22 20:44 Dose: 0.3 mg Cyanocobalamin (Cyanocobalamin (Vitamin B-12) 100 Mcg Tablet) 100 mcg PO DAILY [facility] Last Admin: 05/19/22 09:23 Dose: 100 mcg Escitalopram Oxalate (Escitalopram Oxalate 20 Mg Tablet) 20 mg PO DAILY [facility] Last Admin: 05/19/22 09:23 Dose: 20 mg Folic Acid (Folic Acid 1 Mg Tablet) 1 mg PO DAILY [facility] Last Admin: 05/19/22 09:23 Dose: 1 mg Gabapentin (Gabapentin 300 Mg Capsule) 300 mg PO TID [facility] Last Admin: 05/18/22 20:44 Dose: 300 mg Hydrocortisone (Hydrocortisone 1 % Cream 28.35 Gm Tube) 1 appl TOPICAL BID PRN; Protocol PRN Reason: Itching Last Admin: 05/19/22 09:21 Dose: 1 appl Hydroxyzine HCl (Hydroxyzine Hcl 50 Mg Tablet) 50 mg PO BID [facility] Last Admin: 05/19/22 09:23 Dose: 50 mg Lidocaine (Lidocaine 4 % Patch Adh..Patch) 1 patch TRANSDERMA DAILY [facility] Last Admin: 05/19/22 09:22 Dose: 1 patch Loperamide HCl (Loperamide Hcl 2 Mg Capsule) 2 mg PO Q6H PRN PRN Reason: Diarrhea Last Admin: 05/14/22 16:06 Dose: 2 mg Magnesium Hydroxide (Milk Of Magnesia 30 Ml Oral.Susp) 30 ml PO DAILY PRN PRN Reason: Constipation Multivitamins/Vitamin C (Multivitamin Tablet) 1 tab PO DAILY [facility] Last Admin: 05/19/22 09:23 Dose: 1 tab Naltrexone HCl (Naltrexone Hcl 50 Mg Tablet) 50 mg PO DAILY [facility] Last Admin: 05/19/22 09:23 Dose: 50 mg Nicotine Polacrilex (Nicotine Polacrilex 2 Mg Gum) 2 mg BUCCAL Q2H PRN PRN Reason: Nicotine Cravings Nitrofurantoin Macrocrystals (Nitrofurantoin Monohyd/M-Cryst 100 Mg Capsule) 100 mg PO BID [facility] Last Admin: 05/19/22 09:24 Dose: 100 mg Quetiapine Fumarate (Quetiapine Fumarate 100 Mg Tablet) 100 mg PO BEDTIME [facility] Last Admin: 05/18/22 20:43 Dose: 100 mg Quetiapine Fumarate (Quetiapine Fumarate 50 Mg Tablet) 50 mg PO BEDTIME PRN PRN Reason: insomnia Last Admin: 05/14/22 22:17 Dose: 50 mg Trazodone HCl (Trazodone Hcl 50 Mg Tablet) 50 mg PO BEDTIME PRN PRN Reason: Insomnia Allergies Allergies Allergy/AdvReac Type Severity Reaction Status Date / Time No Known Allergies Allergy Unverified 05/11/20 16:55 [No Known Allergies*] Assessment & Plan Assessment & Plan (1) Depression: Status: Acute Code(s): F32.A - Depression, unspecified (2) Alcohol use: Status: Acute Code(s): Z72.89 - Other problems related to lifestyle Plan schedule ativan taper, as pt has been on ativan per [facility] protocol for more than 24H. restarted outpt meds, which pt has apparently not been taking properly. stabilize mood, refer for CSS. 05/16 continue current medications. 05/17: taper ends friday, pt tolerating it well. continue other psych meds. continue to investigate CSS options. 05/18: Continue current regimen and plans. Ativan taper ends on Saturday 05/19: Continue current regimen and plans. Add tizanidine 2 mg b.i.d. p.r.n. I spent minutes with the patient and/or on the patient floor today, greater than?50% of which was spent counseling/coordinating care. Patient educated on: medication risk/benefits Reason for contiued inpatient stay Substantial Risk for: harm to self
[2022-05-19] MEDS: TiZANidine HCL 4 MG TABLET 2 MG PO ×2 (10:15→20:16)
[2022-05-19] MEDS: Gabapentin 300 MG CAPSULE PO ×3 (10:16→20:12)
[2022-05-19 15:26] VITALS: BP 111/59; PULSE 84; RESP 16
[2022-05-19 16:00] VITALS: BP 88/54; PULSE 88; RESP 16
--- NOTE | 2022-05-19 17:22 | PC.NURSE ---
Spoke to Dr. [place] regarding patients 3 pm Clonidine. Medication held at 3 due to low blood pressure. authorized administration at this time.
[2022-05-19 17:28] VITALS: BP 144/70; PULSE 71; RESP 18
[2022-05-19 20:10] VITALS: BP 106/64; PULSE 69; RESP 18; TEMP 37; O2SAT 95
[2022-05-19] MEDS: cloNIDine HCL 0.1 MG TABLET 0.3 MG PO (20:12)
[2022-05-19] MEDS: QUEtiapine Fumarate 100 MG TABLET PO (20:12)
[2022-05-20] MEDS: Folic Acid 1 MG TABLET PO (08:34)
[2022-05-20] MEDS: cloNIDine HCL 0.1 MG TABLET PO ×2 (08:34→15:19)
[2022-05-20] MEDS: Naltrexone HCl 50 MG TABLET PO (08:34)
[2022-05-20] MEDS: Cyanocobalamin (Vitamin B-12) 100 MCG TABLET PO (08:34)
[2022-05-20] MEDS: Multivitamin TABLET 1 TAB PO (08:34)
[2022-05-20] MEDS: Nitrofurantoin Monohyd/M-Cryst 100 MG CAPSULE PO ×2 (08:34→20:32)
[2022-05-20] MEDS: Escitalopram Oxalate 20 MG TABLET PO (08:34)
[2022-05-20] MEDS: Lidocaine 4 % Patch ADH..PATCH 1 PATCH TRANSDERMA (08:35)
[2022-05-20] MEDS: hydrOXYzine HCL 50 MG TABLET PO ×3 (08:35→20:45)
[2022-05-20 09:22] VITALS: BP 108/55; PULSE 68; RESP 16; TEMP 36.3; O2SAT 97
[2022-05-20] MEDS: Gabapentin 300 MG CAPSULE PO ×3 (09:41→20:32)
--- NOTE | 2022-05-20 12:19 | P.PNPSI_ITS ---
Subjective Subjective Date of Service: 05/20/22 Reason For Visit: depression/ si Interim History: calm, cooperative. logical, reasonable. concerned about no housing for discharge, no rehab option for her at the moment. discussed living room option, in which she appeared interested. advised to continue to work with stanislav CHRISTENSEN re dispo options and plan. per staff, anx/dep 06/03. awaiting CSS. anxious re DC. eating and sleeping well. Mental Status Exam Mental Status Exam Narrative: calm, cooperative. adequately dressed and groomed. no PMA/PMR. speech nml in rate, amount, loudness, tone, latency. affect flexible, normo-intense, non- labile. no SI/HI/AVH expressed. Diagnostics Vital Signs (24Hr): Vital Signs - 24 hr 05/19/22 15:26 05/19/22 16:00 05/19/22 17:28 Temperature Pulse Rate 84 88 71 Respiratory Rate 16 16 18 Blood Pressure 111/59 L 88/54 L 144/70 H Pulse Oximetry Oxygen Delivery Method 05/19/22 20:10 05/20/22 09:22 Temperature 98.6 F 97.3 F Pulse Rate 69 68 Respiratory Rate 18 16 Blood Pressure 106/64 108/55 L Pulse Oximetry 95 97 Oxygen Delivery Method Room Air Room Air BMI result Body Mass Index 32.3 Labs Results: 05/12/22 16:23 05/14/22 08:50 Medications Medications Current Medications Acetaminophen (Acetaminophen 325 Mg Tablet) 650 mg PO Q6H PRN PRN Reason: Headache/Pain Mild Scale (1-3) Last Admin: 05/19/22 09:23 Dose: 650 mg Al Hydroxide/Mg Hydroxide (Magnesium Hydrox/Alum Hydrox 30 Ml Oral.Susp) 30 ml PO Q6H PRN PRN Reason: Heartburn/Nausea Clonidine HCl (Clonidine Hcl 0.1 Mg Tablet) 0.1 mg PO BID@0900,1500 [facility]; Protocol Last Admin: 05/20/22 08:34 Dose: 0.1 mg Clonidine HCl (Clonidine Hcl 0.1 Mg Tablet) 0.3 mg PO BEDTIME [facility]; Protocol Last Admin: 05/19/22 20:12 Dose: 0.3 mg Cyanocobalamin (Cyanocobalamin (Vitamin B-12) 100 Mcg Tablet) 100 mcg PO DAILY [facility] Last Admin: 05/20/22 08:34 Dose: 100 mcg Escitalopram Oxalate (Escitalopram Oxalate 20 Mg Tablet) 20 mg PO DAILY [facility] Last Admin: 05/20/22 08:34 Dose: 20 mg Folic Acid (Folic Acid 1 Mg Tablet) 1 mg PO DAILY [facility] Last Admin: 05/20/22 08:34 Dose: 1 mg Gabapentin (Gabapentin 300 Mg Capsule) 300 mg PO TID [facility] Last Admin: 05/20/22 09:41 Dose: 300 mg Hydrocortisone (Hydrocortisone 1 % Cream 28.35 Gm Tube) 1 appl TOPICAL BID PRN; Protocol PRN Reason: Itching Last Admin: 05/19/22 09:21 Dose: 1 appl Hydroxyzine HCl (Hydroxyzine Hcl 50 Mg Tablet) 50 mg PO BID [facility] Last Admin: 05/20/22 08:35 Dose: 50 mg Lidocaine (Lidocaine 4 % Patch Adh..Patch) 1 patch TRANSDERMA DAILY [facility] Last Admin: 05/20/22 08:35 Dose: 1 patch Loperamide HCl (Loperamide Hcl 2 Mg Capsule) 2 mg PO Q6H PRN PRN Reason: Diarrhea Last Admin: 05/14/22 16:06 Dose: 2 mg Magnesium Hydroxide (Milk Of Magnesia 30 Ml Oral.Susp) 30 ml PO DAILY PRN PRN Reason: Constipation Multivitamins/Vitamin C (Multivitamin Tablet) 1 tab PO DAILY [facility] Last Admin: 05/20/22 08:34 Dose: 1 tab Naltrexone HCl (Naltrexone Hcl 50 Mg Tablet) 50 mg PO DAILY [facility] Last Admin: 05/20/22 08:34 Dose: 50 mg Nicotine Polacrilex (Nicotine Polacrilex 2 Mg Gum) 2 mg BUCCAL Q2H PRN PRN Reason: Nicotine Cravings Nitrofurantoin Macrocrystals (Nitrofurantoin Monohyd/M-Cryst 100 Mg Capsule) 100 mg PO BID [facility] Last Admin: 05/20/22 08:34 Dose: 100 mg Quetiapine Fumarate (Quetiapine Fumarate 100 Mg Tablet) 100 mg PO BEDTIME [facility] Last Admin: 05/19/22 20:12 Dose: 100 mg Quetiapine Fumarate (Quetiapine Fumarate 50 Mg Tablet) 50 mg PO BEDTIME PRN PRN Reason: insomnia Last Admin: 05/14/22 22:17 Dose: 50 mg Tizanidine HCl (Tizanidine Hcl 4 Mg Tablet) 2 mg PO BID PRN PRN Reason: Muscle Spasm Last Admin: 05/19/22 20:16 Dose: 2 mg Trazodone HCl (Trazodone Hcl 50 Mg Tablet) 50 mg PO BEDTIME PRN PRN Reason: Insomnia Allergies Allergies Allergy/AdvReac Type Severity Reaction Status Date / Time No Known Allergies Allergy Unverified 05/11/20 16:55 [No Known Allergies*] Assessment & Plan Assessment & Plan (1) Depression: Status: Acute Code(s): F32.A - Depression, unspecified (2) Alcohol use: Status: Acute Code(s): Z72.89 - Other problems related to lifestyle Plan schedule ativan taper, as pt has been on ativan per [facility] protocol for more than 24H. restarted outpt meds, which pt has apparently not been taking properly. stabilize mood, refer for CSS. 05/16 continue current medications. 05/17: taper ends friday, pt tolerating it well. continue other psych meds. continue to investigate CSS options. 05/18: Continue current regimen and plans. Ativan taper ends on Saturday 05/19: Continue current regimen and plans. Add tizanidine 2 mg b.i.d. p.r.n. 05/20: continue current mgmt. planning for discharge tomorrow, as no CSS options seem imminent. I spent ___20___ minutes with the patient and/or on the patient floor today, greater than?50% of which was spent counseling/coordinating care. Reason for contiued inpatient stay Substantial Risk for: rapid decompensation
[2022-05-20 20:25] VITALS: BP 116/68; PULSE 67; RESP 18; TEMP 36.1; O2SAT 99
[2022-05-20] MEDS: TiZANidine HCL 4 MG TABLET 2 MG PO (20:32)
[2022-05-20] MEDS: QUEtiapine Fumarate 100 MG TABLET PO (20:32)
[2022-05-20] MEDS: cloNIDine HCL 0.1 MG TABLET 0.3 MG PO (20:32)
[2022-05-20] MEDS: traZODone HCL 50 MG TABLET PO (20:45)
[2022-05-20] MEDS: QUEtiapine Fumarate 50 MG TABLET PO (20:45)
[2022-05-21] MEDS: Multivitamin TABLET 1 TAB PO (08:45)
[2022-05-21] MEDS: Lidocaine 4 % Patch ADH..PATCH 1 PATCH TRANSDERMA (08:45)
[2022-05-21] MEDS: cloNIDine HCL 0.1 MG TABLET PO (08:45)
[2022-05-21] MEDS: Nitrofurantoin Monohyd/M-Cryst 100 MG CAPSULE PO ×2 (08:45→20:07)
[2022-05-21] MEDS: Cyanocobalamin (Vitamin B-12) 100 MCG TABLET PO (08:45)
[2022-05-21] MEDS: Folic Acid 1 MG TABLET PO (08:46)
[2022-05-21] MEDS: Gabapentin 300 MG CAPSULE PO ×3 (08:46→20:07)
[2022-05-21] MEDS: hydrOXYzine HCL 50 MG TABLET PO ×2 (08:46→20:07)
[2022-05-21] MEDS: Escitalopram Oxalate 20 MG TABLET PO (08:46)
[2022-05-21] MEDS: Naltrexone HCl 50 MG TABLET PO (08:46)
[2022-05-21] MEDS: TiZANidine HCL 4 MG TABLET 2 MG PO ×2 (10:28→20:05)
[2022-05-21 10:49] VITALS: BP 98/62; PULSE 92; RESP 16; TEMP 36.3; O2SAT 97
--- NOTE | 2022-05-21 14:20 | P.PNPSI_ITS ---
Subjective Subjective Date of Service: 05/21/22 Reason For Visit: depression/ si Interim History: pt calm and cooperative, alert. discuss antabuse, R/B discussed incl liver damage, antabuse rxn, and cessation of alcohol use. pt amenable to a trial, will have labs checked today. planning for discharge later this week, will get into an apartment on friday. states she is sleeping poorly and her anxiety and depression are really kickin'. agreeable to increase HS seroquel to 150 mg. per staff, anx/dep 06/03. attending groups. Mental Status Exam Mental Status Exam Narrative: calm, cooperative. adequately dressed and groomed. no PMA/PMR. speech nml in rate, amount, loudness, tone, latency. affect flexible, normo-intense, non- labile. no SI/HI/AVH expressed. Diagnostics Vital Signs (24Hr): Vital Signs - 24 hr 05/20/22 20:25 05/21/22 10:49 Temperature 97.0 F 97.4 F Pulse Rate 67 92 Respiratory Rate 18 16 Blood Pressure 116/68 98/62 Pulse Oximetry 99 97 Oxygen Delivery Method Room Air Room Air BMI result Body Mass Index 32.3 Labs Results: 05/12/22 16:23 05/14/22 08:50 Medications Medications Current Medications Acetaminophen (Acetaminophen 325 Mg Tablet) 650 mg PO Q6H PRN PRN Reason: Headache/Pain Mild Scale (1-3) Last Admin: 05/19/22 09:23 Dose: 650 mg Al Hydroxide/Mg Hydroxide (Magnesium Hydrox/Alum Hydrox 30 Ml Oral.Susp) 30 ml PO Q6H PRN PRN Reason: Heartburn/Nausea Clonidine HCl (Clonidine Hcl 0.1 Mg Tablet) 0.1 mg PO BID@0900,1500 [facility]; Protocol Last Admin: 05/21/22 08:45 Dose: 0.1 mg Clonidine HCl (Clonidine Hcl 0.1 Mg Tablet) 0.3 mg PO BEDTIME [facility]; Protocol Last Admin: 05/20/22 20:32 Dose: 0.3 mg Cyanocobalamin (Cyanocobalamin (Vitamin B-12) 100 Mcg Tablet) 100 mcg PO DAILY [facility] Last Admin: 05/21/22 08:45 Dose: 100 mcg Escitalopram Oxalate (Escitalopram Oxalate 20 Mg Tablet) 20 mg PO DAILY [facility] Last Admin: 05/21/22 08:46 Dose: 20 mg Folic Acid (Folic Acid 1 Mg Tablet) 1 mg PO DAILY [facility] Last Admin: 05/21/22 08:46 Dose: 1 mg Gabapentin (Gabapentin 300 Mg Capsule) 300 mg PO TID [facility] Last Admin: 05/21/22 08:46 Dose: 300 mg Hydrocortisone (Hydrocortisone 1 % Cream 28.35 Gm Tube) 1 appl TOPICAL BID PRN; Protocol PRN Reason: Itching Last Admin: 05/19/22 09:21 Dose: 1 appl Hydroxyzine HCl (Hydroxyzine Hcl 50 Mg Tablet) 50 mg PO BID [facility] Last Admin: 05/21/22 08:46 Dose: 50 mg Hydroxyzine HCl (Hydroxyzine Hcl 50 Mg Tablet) 50 mg PO Q6H PRN PRN Reason: Anxiety Last Admin: 05/20/22 20:45 Dose: 50 mg Lidocaine (Lidocaine 4 % Patch Adh..Patch) 1 patch TRANSDERMA DAILY [facility] Last Admin: 05/21/22 08:45 Dose: 1 patch Loperamide HCl (Loperamide Hcl 2 Mg Capsule) 2 mg PO Q6H PRN PRN Reason: Diarrhea Last Admin: 05/14/22 16:06 Dose: 2 mg Magnesium Hydroxide (Milk Of Magnesia 30 Ml Oral.Susp) 30 ml PO DAILY PRN PRN Reason: Constipation Multivitamins/Vitamin C (Multivitamin Tablet) 1 tab PO DAILY [facility] Last Admin: 05/21/22 08:45 Dose: 1 tab Naltrexone HCl (Naltrexone Hcl 50 Mg Tablet) 50 mg PO DAILY [facility] Last Admin: 05/21/22 08:46 Dose: 50 mg Nicotine Polacrilex (Nicotine Polacrilex 2 Mg Gum) 2 mg BUCCAL Q2H PRN PRN Reason: Nicotine Cravings Nitrofurantoin Macrocrystals (Nitrofurantoin Monohyd/M-Cryst 100 Mg Capsule) 100 mg PO BID [facility] Last Admin: 05/21/22 08:45 Dose: 100 mg Quetiapine Fumarate (Quetiapine Fumarate 50 Mg Tablet) 50 mg PO BEDTIME PRN PRN Reason: insomnia Last Admin: 05/20/22 20:45 Dose: 50 mg Quetiapine Fumarate (Quetiapine Fumarate 50 Mg Tablet) 150 mg PO BEDTIME [facility] Tizanidine HCl (Tizanidine Hcl 4 Mg Tablet) 2 mg PO BID PRN PRN Reason: Muscle Spasm Last Admin: 05/21/22 10:28 Dose: 2 mg Allergies Allergies Allergy/AdvReac Type Severity Reaction Status Date / Time No Known Allergies Allergy Unverified 05/11/20 16:55 [No Known Allergies*] Assessment & Plan Assessment & Plan (1) Depression: Status: Acute Code(s): F32.A - Depression, unspecified (2) Alcohol use: Status: Acute Code(s): Z72.89 - Other problems related to lifestyle Plan schedule ativan taper, as pt has been on ativan per [facility] protocol for more than 24H. restarted outpt meds, which pt has apparently not been taking properly. stabilize mood, refer for CSS. 05/16 continue current medications. 05/17: taper ends friday, pt tolerating it well. continue other psych meds. continue to investigate CSS options. 05/18: Continue current regimen and plans. Ativan taper ends on Saturday 05/19: Continue current regimen and plans. Add tizanidine 2 mg b.i.d. p.r.n. 05/20: continue current mgmt. planning for discharge tomorrow, as no CSS options seem imminent. 05/21: starting antabuse once it can be obtained from outside pharmacy. increased seroquel at HS to 150 mg. will get into apt on friday. deferring discharge due to medication changes. LFT and CBC being drawn today. I spent ___20___ minutes with the patient and/or on the patient floor today, greater than?50% of which was spent counseling/coordinating care. Reason for contiued inpatient stay Substantial Risk for: harm to self, inability to function and rapid decomp ensation
[2022-05-21 14:45] VITALS: BP 105/50; PULSE 82
[2022-05-21 16:19] LABS: MANUAL DIFF FLAG NO
[2022-05-21 16:21] LABS: Basophils Percent Auto 0.5 % (0-2); Eosinophils Absolute Auto 0.1 X10*3/uL (0.0-0.4); Eosinophils Percent Auto 1.8 % (0-4); Hematocrit 41.2 % (37.0-47.0); Hemoglobin 13.3 g/dl (12.0-16.0); Imm Gran Abs Auto 0.02 X10*3/uL (0.00-0.03); Imm Gran Pct Auto 0.3 % (0.0-0.4); Lymphocytes Absolute Auto 2.9 X10*3/uL (1.2-4.9); Mean Corpuscular HGB Conc 32.3 g/dl (31.0-35.0); Mean Corpuscular Hemoglobin 30.5 pg (27.0-33.0); Mean Corpuscular Volume 94.5 fL (80.0-98.0); Monocytes Absolute Auto 0.6 X10*3/uL (0.1-1.2); Monocytes Percent Auto 8.1 % (2-11); Neutrophils Percent Auto 52.3 % (45-73); Platelet Count 305 X10*3/uL (160-400); Red Blood Count 4.36 X10*6/uL (4.20-5.50); Red Cell Distribution Width 13.2 % (11.0-16.0); White Blood Count 7.7 X10*3/uL (4.8-10.8)
[2022-05-21 16:37] LABS: Alanine Aminotransferase 88 U/L (0-31); Albumin Level 4.1 g/dL (3.5-5.0); Alkaline Phosphatase 77 U/L (39-117); Aspartate Amino Transferase 71 U/L (5-31); Bilirubin Direct < 0.2 mg/dL (0.0-0.5); Bilirubin Total 0.3 mg/dL (0.0-1.0); Total Protein 7.3 g/dL (6.5-8.0)
[2022-05-21 20:00] VITALS: BP 125/58; PULSE 67; RESP 18; TEMP 36.6; O2SAT 97
[2022-05-21] MEDS: QUEtiapine Fumarate 50 MG TABLET 150 MG PO (20:06)
[2022-05-21] MEDS: cloNIDine HCL 0.1 MG TABLET 0.3 MG PO (20:06)
[2022-05-22] MEDS: Escitalopram Oxalate 20 MG TABLET PO (08:16)
[2022-05-22] MEDS: Gabapentin 300 MG CAPSULE PO ×3 (08:16→20:27)
[2022-05-22] MEDS: Folic Acid 1 MG TABLET PO (08:16)
[2022-05-22] MEDS: Multivitamin TABLET 1 TAB PO (08:16)
[2022-05-22] MEDS: hydrOXYzine HCL 50 MG TABLET PO ×2 (08:17→20:27)
[2022-05-22] MEDS: Nitrofurantoin Monohyd/M-Cryst 100 MG CAPSULE PO ×2 (08:17→20:27)
[2022-05-22] MEDS: Lidocaine 4 % Patch ADH..PATCH 1 PATCH TRANSDERMA (08:17)
[2022-05-22] MEDS: Naltrexone HCl 50 MG TABLET PO (08:17)
[2022-05-22] MEDS: Cyanocobalamin (Vitamin B-12) 100 MCG TABLET PO (08:17)
[2022-05-22 08:35] VITALS: BP 87/63; PULSE 67; RESP 14; TEMP 36.3; O2SAT 96
--- NOTE | 2022-05-22 13:37 | P.PNPSI_ITS ---
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 does report her depression is just hunter chance, however. does not appear it. planning to discharge friday to [facility]. aftercare reviewed today. awaiting antabuse from outside pharmacy, as [facility] [place] it [place] formulary. per staff, some insomnia. attended art group. denies SI/HI/AVH. anxiety low, dep 10. appear ed to sleep through the night. Mental Status Exam Mental Status Exam Narrative: calm, cooperative. adequately dressed and groomed. no PMA/PMR. speech nml in rate, amount, loudness, tone, latency. affect flexible, normo-intense, non- labile. no SI/HI/AVH expressed. Diagnostics Vital Signs (24Hr): Vital Signs - 24 hr 05/21/22 14:45 05/21/22 20:00 05/22/22 08:35 Temperature 97.8 F 97.4 F Pulse Rate 82 67 67 Respiratory Rate 18 14 Blood Pressure 105/50 L 125/58 L 87/63 L Pulse Oximetry 97 96 Oxygen Delivery Method Room Air Room Air BMI result Body Mass Index 32.3 Labs Results: 05/21/22 16:14 05/14/22 08:50 Labs: Laboratory Results - last 48 hr 05/21/22 05/21/22 16:14 16:14 WBC 7.7 RBC 4.36 Hgb 13.3 Hct 41.2 MCV 94.5 MCH 30.5 MCHC 32.3 RDW 13.2 Plt Count 305 D MPV 9.0 L Immature Gran % (Auto) 0.3 Neut % (Auto) 52.3 Lymph % (Auto) 37.0 Bowie % (Auto) 8.1 Eos % (Auto) 1.8 Baso % (Auto) 0.5 Lymph # (Auto) 2.9 Bowie # (Auto) 0.6 Eos # (Auto) 0.1 Baso # (Auto) 0.0 Abs Immat Gran (auto) 0.02 Absolute Neuts (auto) 4.0 Absolute Nucleated RBC 0.000 Nucleated RBC % (auto) 0.0 Total Bilirubin 0.3 Direct Bilirubin < 0.2 AST 71 H ALT 88 H Alkaline Phosphatase 77 Total Protein 7.3 Albumin 4.1 Medications Medications Current Medications Acetaminophen (Acetaminophen 325 Mg Tablet) 650 mg PO Q6H PRN PRN Reason: Headache/Pain Mild Scale (1-3) Last Admin: 05/19/22 09:23 Dose: 650 mg Al Hydroxide/Mg Hydroxide (Magnesium Hydrox/Alum Hydrox 30 Ml Oral.Susp) 30 ml PO Q6H PRN PRN Reason: Heartburn/Nausea Clonidine HCl (Clonidine Hcl 0.1 Mg Tablet) 0.1 mg PO BID@0900,1500 [facility]; Protocol Last Admin: 05/22/22 08:22 Dose: Not Given Clonidine HCl (Clonidine Hcl 0.1 Mg Tablet) 0.3 mg PO BEDTIME [facility]; Protocol Last Admin: 05/21/22 20:06 Dose: 0.3 mg Cyanocobalamin (Cyanocobalamin (Vitamin B-12) 100 Mcg Tablet) 100 mcg PO DAILY [facility] Last Admin: 05/22/22 08:17 Dose: 100 mcg Escitalopram Oxalate (Escitalopram Oxalate 20 Mg Tablet) 20 mg PO DAILY [facility] Last Admin: 05/22/22 08:16 Dose: 20 mg Folic Acid (Folic Acid 1 Mg Tablet) 1 mg PO DAILY [facility] Last Admin: 05/22/22 08:16 Dose: 1 mg Gabapentin (Gabapentin 300 Mg Capsule) 300 mg PO TID [facility] Last Admin: 05/22/22 08:16 Dose: 300 mg Hydrocortisone (Hydrocortisone 1 % Cream 28.35 Gm Tube) 1 appl TOPICAL BID PRN; Protocol PRN Reason: Itching Last Admin: 05/19/22 09:21 Dose: 1 appl Hydroxyzine HCl (Hydroxyzine Hcl 50 Mg Tablet) 50 mg PO BID [facility] Last Admin: 05/22/22 08:17 Dose: 50 mg Hydroxyzine HCl (Hydroxyzine Hcl 50 Mg Tablet) 50 mg PO Q6H PRN PRN Reason: Anxiety Last Admin: 05/20/22 20:45 Dose: 50 mg Lidocaine (Lidocaine 4 % Patch Adh..Patch) 1 patch TRANSDERMA DAILY [facility] Last Admin: 05/22/22 08:17 Dose: 1 patch Loperamide HCl (Loperamide Hcl 2 Mg Capsule) 2 mg PO Q6H PRN PRN Reason: Diarrhea Last Admin: 05/14/22 16:06 Dose: 2 mg Magnesium Hydroxide (Milk Of Magnesia 30 Ml Oral.Susp) 30 ml PO DAILY PRN PRN Reason: Constipation Multivitamins/Vitamin C (Multivitamin Tablet) 1 tab PO DAILY [facility] Last Admin: 05/22/22 08:16 Dose: 1 tab Naltrexone HCl (Naltrexone Hcl 50 Mg Tablet) 50 mg PO DAILY [facility] Last Admin: 05/22/22 08:17 Dose: 50 mg Nicotine Polacrilex (Nicotine Polacrilex 2 Mg Gum) 2 mg BUCCAL Q2H PRN PRN Reason: Nicotine Cravings Nitrofurantoin Macrocrystals (Nitrofurantoin Monohyd/M-Cryst 100 Mg Capsule) 100 mg PO BID [facility] Last Admin: 05/22/22 08:17 Dose: 100 mg Quetiapine Fumarate (Quetiapine Fumarate 50 Mg Tablet) 50 mg PO BEDTIME PRN PRN Reason: insomnia Last Admin: 05/20/22 20:45 Dose: 50 mg Quetiapine Fumarate (Quetiapine Fumarate 50 Mg Tablet) 150 mg PO BEDTIME [facility] Last Admin: 05/21/22 20:06 Dose: 150 mg Tizanidine HCl (Tizanidine Hcl 4 Mg Tablet) 2 mg PO BID PRN PRN Reason: Muscle Spasm Last Admin: 05/21/22 20:05 Dose: 2 mg Allergies Allergies Allergy/AdvReac Type Severity Reaction Status Date / Time No Known Allergies Allergy Unverified 05/11/20 16:55 [No Known Allergies*] Assessment & Plan Assessment & Plan (1) Depression: Status: Acute Code(s): F32.A - Depression, unspecified (2) Alcohol use: Status: Acute Code(s): Z72.89 - Other problems related to lifestyle Plan schedule ativan taper, as pt has been on ativan per [facility] protocol for more than 24H. restarted outpt meds, which pt has apparently not been taking properly. stabilize mood, refer for CSS. 05/16 continue current medications. 05/17: taper ends friday, pt tolerating it well. continue other psych meds. continue to investigate CSS options. 05/18: Continue current regimen and plans. Ativan taper ends on Saturday 05/19: Continue current regimen and plans. Add tizanidine 2 mg b.i.d. p.r.n. 05/20: continue current mgmt. planning for discharge tomorrow, as no CSS options seem imminent. 05/21: starting antabuse once it can be obtained from outside pharmacy. increased seroquel at HS to 150 mg. will get into apt on friday. deferring discharge due to medication changes. LFT and CBC being drawn today. 05/22: awaiting antabuse from outside pharmacy. CBC WNL, LFT showing minor transaminase elevations. will monitor. I spent ___25___ minutes with the patient and/or on the patient floor today, greater than?50% of which was spent counseling/coordinating care. Reason for contiued inpatient stay Substantial Risk for: inability to function and rapid decompensation
[2022-05-22] MEDS: cloNIDine HCL 0.1 MG TABLET PO (14:29)
[2022-05-22 20:20] VITALS: BP 117/63; PULSE 66; RESP 16; TEMP 36.4; O2SAT 97
[2022-05-22] MEDS: cloNIDine HCL 0.1 MG TABLET 0.3 MG PO (20:25)
[2022-05-22] MEDS: TiZANidine HCL 4 MG TABLET 2 MG PO (20:25)
[2022-05-22] MEDS: QUEtiapine Fumarate 50 MG TABLET 150 MG PO (20:26)
[2022-05-22] MEDS: QUEtiapine Fumarate 50 MG TABLET PO (20:27)
[2022-05-23 08:30] VITALS: BP 110/58; PULSE 64; RESP 16; TEMP 36.4; O2SAT 98
[2022-05-23] MEDS: Cyanocobalamin (Vitamin B-12) 100 MCG TABLET PO (08:32)
[2022-05-23] MEDS: Multivitamin TABLET 1 TAB PO (08:32)
[2022-05-23] MEDS: hydrOXYzine HCL 50 MG TABLET PO ×2 (08:32→20:41)
[2022-05-23] MEDS: Naltrexone HCl 50 MG TABLET PO (08:32)
[2022-05-23] MEDS: Gabapentin 300 MG CAPSULE PO ×3 (08:32→20:42)
[2022-05-23] MEDS: Nitrofurantoin Monohyd/M-Cryst 100 MG CAPSULE PO ×2 (08:32→20:41)
[2022-05-23] MEDS: Folic Acid 1 MG TABLET PO (08:32)
[2022-05-23] MEDS: Escitalopram Oxalate 20 MG TABLET PO (08:32)
[2022-05-23] MEDS: Lidocaine 4 % Patch ADH..PATCH 1 PATCH TRANSDERMA (08:33)
[2022-05-23] MEDS: cloNIDine HCL 0.1 MG TABLET PO ×2 (08:33→15:57)
[2022-05-23] MEDS: TiZANidine HCL 4 MG TABLET 2 MG PO (08:40)
--- NOTE | 2022-05-23 14:25 | P.PNPSI_ITS ---
Subjective Subjective Date of Service: 05/23/22 Reason For Visit: depression/ si Interim History: calm, cooperative. stable presentation. future-oriented. planning for son to come pick her up tomorrow. per staff, c/o anx and dep. excited to DC tomorrow, however. sleeping problems. eating well. no SI/HI/AVH. + art group. Mental Status Exam Mental Status Exam Narrative: calm, cooperative. adequately dressed and groomed. no PMA/PMR. speech nml in rate, amount, loudness, tone, latency. affect flexible, normo-intense, non- labile. no SI/HI/AVH expressed. Diagnostics Vital Signs (24Hr): Vital Signs - 24 hr 05/22/22 20:20 Temperature 97.6 F Pulse Rate 66 Respiratory Rate 16 Blood Pressure 117/63 Pulse Oximetry 97 Oxygen Delivery Method Room Air BMI result Body Mass Index 32.3 Labs Results: 05/21/22 16:14 05/14/22 08:50 Labs: Laboratory Results - last 48 hr 05/21/22 05/21/22 16:14 16:14 WBC 7.7 RBC 4.36 Hgb 13.3 Hct 41.2 MCV 94.5 MCH 30.5 MCHC 32.3 RDW 13.2 Plt Count 305 D MPV 9.0 L Immature Gran % (Auto) 0.3 Neut % (Auto) 52.3 Lymph % (Auto) 37.0 Simpson % (Auto) 8.1 Eos % (Auto) 1.8 Baso % (Auto) 0.5 Lymph # (Auto) 2.9 Simpson # (Auto) 0.6 Eos # (Auto) 0.1 Baso # (Auto) 0.0 Abs Immat Gran (auto) 0.02 Absolute Neuts (auto) 4.0 Absolute Nucleated RBC 0.000 Nucleated RBC % (auto) 0.0 Total Bilirubin 0.3 Direct Bilirubin < 0.2 AST 71 H ALT 88 H Alkaline Phosphatase 77 Total Protein 7.3 Albumin 4.1 Medications Medications Current Medications Acetaminophen (Acetaminophen 325 Mg Tablet) 650 mg PO Q6H PRN PRN Reason: Headache/Pain Mild Scale (1-3) Last Admin: 05/19/22 09:23 Dose: 650 mg Al Hydroxide/Mg Hydroxide (Magnesium Hydrox/Alum Hydrox 30 Ml Oral.Susp) 30 ml PO Q6H PRN PRN Reason: Heartburn/Nausea Clonidine HCl (Clonidine Hcl 0.1 Mg Tablet) 0.1 mg PO BID@0900,1500 [facility]; Protocol Last Admin: 05/23/22 08:33 Dose: 0.1 mg Clonidine HCl (Clonidine Hcl 0.1 Mg Tablet) 0.3 mg PO BEDTIME [facility]; Protocol Last Admin: 05/22/22 20:25 Dose: 0.3 mg Cyanocobalamin (Cyanocobalamin (Vitamin B-12) 100 Mcg Tablet) 100 mcg PO DAILY [facility] Last Admin: 05/23/22 08:32 Dose: 100 mcg Escitalopram Oxalate (Escitalopram Oxalate 20 Mg Tablet) 20 mg PO DAILY [facility] Last Admin: 05/23/22 08:32 Dose: 20 mg Folic Acid (Folic Acid 1 Mg Tablet) 1 mg PO DAILY [facility] Last Admin: 05/23/22 08:32 Dose: 1 mg Gabapentin (Gabapentin 300 Mg Capsule) 300 mg PO TID [facility] Last Admin: 05/23/22 08:32 Dose: 300 mg Hydrocortisone (Hydrocortisone 1 % Cream 28.35 Gm Tube) 1 appl TOPICAL BID PRN; Protocol PRN Reason: Itching Last Admin: 05/19/22 09:21 Dose: 1 appl Hydroxyzine HCl (Hydroxyzine Hcl 50 Mg Tablet) 50 mg PO BID [facility] Last Admin: 05/23/22 08:32 Dose: 50 mg Hydroxyzine HCl (Hydroxyzine Hcl 50 Mg Tablet) 50 mg PO Q6H PRN PRN Reason: Anxiety Last Admin: 05/20/22 20:45 Dose: 50 mg Lidocaine (Lidocaine 4 % Patch Adh..Patch) 1 patch TRANSDERMA DAILY [facility] Last Admin: 05/23/22 08:33 Dose: 1 patch Loperamide HCl (Loperamide Hcl 2 Mg Capsule) 2 mg PO Q6H PRN PRN Reason: Diarrhea Last Admin: 05/14/22 16:06 Dose: 2 mg Magnesium Hydroxide (Milk Of Magnesia 30 Ml Oral.Susp) 30 ml PO DAILY PRN PRN Reason: Constipation Multivitamins/Vitamin C (Multivitamin Tablet) 1 tab PO DAILY [facility] Last Admin: 05/23/22 08:32 Dose: 1 tab Naltrexone HCl (Naltrexone Hcl 50 Mg Tablet) 50 mg PO DAILY [facility] Last Admin: 05/23/22 08:32 Dose: 50 mg Nicotine Polacrilex (Nicotine Polacrilex 2 Mg Gum) 2 mg BUCCAL Q2H PRN PRN Reason: Nicotine Cravings Nitrofurantoin Macrocrystals (Nitrofurantoin Monohyd/M-Cryst 100 Mg Capsule) 100 mg PO BID [facility] Last Admin: 05/23/22 08:32 Dose: 100 mg Pt Own (Disulfiram (250 Mg)) 500 mg PO DAILY [facility] Last Admin: 05/23/22 14:00 Dose: Not Given Quetiapine Fumarate (Quetiapine Fumarate 50 Mg Tablet) 50 mg PO BEDTIME PRN PRN Reason: insomnia Last Admin: 05/22/22 20:27 Dose: 50 mg Quetiapine Fumarate (Quetiapine Fumarate 50 Mg Tablet) 150 mg PO BEDTIME [facility] Last Admin: 05/22/22 20:26 Dose: 150 mg Tizanidine HCl (Tizanidine Hcl 4 Mg Tablet) 2 mg PO BID PRN PRN Reason: Muscle Spasm Last Admin: 05/23/22 08:40 Dose: 2 mg Allergies Allergies Allergy/AdvReac Type Severity Reaction Status Date / Time No Known Allergies Allergy Unverified 05/11/20 16:55 [No Known Allergies*] Assessment & Plan Assessment & Plan (1) Depression: Status: Acute Code(s): F32.A - Depression, unspecified (2) Alcohol use: Status: Acute Code(s): Z72.89 - Other problems related to lifestyle Plan schedule ativan taper, as pt has been on ativan per [facility] protocol for more than 24H. restarted outpt meds, which pt has apparently not been taking properly. stabilize mood, refer for CSS. 05/16 continue current medications. 05/17: taper ends friday, pt tolerating it well. continue other psych meds. continue to investigate CSS options. 05/18: Continue current regimen and plans. Ativan taper ends on Saturday 05/19: Continue current regimen and plans. Add tizanidine 2 mg b.i.d. p.r.n. 05/20: continue current mgmt. planning for discharge tomorrow, as no CSS options seem imminent. 05/21: starting antabuse once it can be obtained from outside pharmacy. increased seroquel at HS to 150 mg. will get into apt on friday. deferring discharge due to medication changes. LFT and CBC being drawn today. 05/22: awaiting antabuse from outside pharmacy. CBC WNL, LFT showing minor transaminase elevations. will monitor. 05/23: antabuse arrived, pt declined it. continue current mgmt, DC tomorrow. I spent ___25___ minutes with the patient and/or on the patient floor today, greater than?50% of which was spent counseling/coordinating care. Reason for contiued inpatient stay Substantial Risk for: inability to function and rapid decompensation
[2022-05-23 20:40] VITALS: BP 117/63; PULSE 67; TEMP 36.4; O2SAT 98
[2022-05-23] MEDS: cloNIDine HCL 0.1 MG TABLET 0.3 MG PO (20:41)
[2022-05-23] MEDS: QUEtiapine Fumarate 50 MG TABLET 150 MG PO (20:42)
[2022-05-24 08:30] VITALS: BP 111/57; PULSE 71; RESP 17; TEMP 36.2; O2SAT 98
[2022-05-24] MEDS: Multivitamin TABLET 1 TAB PO (08:33)
[2022-05-24] MEDS: hydrOXYzine HCL 50 MG TABLET PO (08:34)
[2022-05-24] MEDS: Gabapentin 300 MG CAPSULE PO (08:34)
[2022-05-24] MEDS: Folic Acid 1 MG TABLET PO (08:34)
[2022-05-24] MEDS: Nitrofurantoin Monohyd/M-Cryst 100 MG CAPSULE PO (08:35)
[2022-05-24] MEDS: Escitalopram Oxalate 20 MG TABLET PO (08:35)
[2022-05-24] MEDS: Cyanocobalamin (Vitamin B-12) 100 MCG TABLET PO (08:35)
[2022-05-24] MEDS: cloNIDine HCL 0.1 MG TABLET PO (08:36)
[2022-05-24] MEDS: Lidocaine 4 % Patch ADH..PATCH 1 PATCH TRANSDERMA (08:38)
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
== END 2022-05-24 11:50 | disposition home or self-care (01) | DRG 754 ==
LOC: HO.ED 05-13 10:48 → HO.PADLT16 05-13 15:08
PROVIDERS: Physician Assistant; Admitting Provider Psychiatry & Neurology Psychiatry; Emergency Provider Emergency Medicine; Visit Provider Psychiatry & Neurology Psychiatry
DX: F32.A Depression, unspecified (principal); R45.851 Suicidal ideations; F10.129 Alcohol abuse with intoxication, unspecified; Y90.8 Blood alcohol level of 240 mg/100 ml or more; Z20.822 Contact with and (suspected) exposure to COVID-19; Z59.01 Sheltered homelessness; Z87.820 Personal history of traumatic brain injury; Z79.899 Other long term (current) drug therapy
CPT/HCPCS: 36415; 80053; 80061; 80076; 80143; 80179; 80307; 81001; 82077; 82607; 82746; 83036; 84443; 85025; 85610; 85730; 87086; 87088; 87186; 87635; 93005; 99284

== ENCOUNTER 2022-06-06 13:25 | Emergency (ER) | payer OTHER, SELFPAY ==
[2022-06-06 13:30] VITALS: BP 151/82; PULSE 95; RESP 20; TEMP 36.5; O2SAT 96; BMI 32.2
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
--- NOTE | 2022-06-06 15:25 | PC.NURSE ---
Pt changed into hospital attire. In behavioral control at this time, sleeping. Respirations even and unlabored.
[2022-06-06 15:47] VITALS: RESP 18
[2022-06-06 17:03] LABS: Basophils Percent Auto 0.7 % (0-2); Eosinophils Absolute Auto 0.1 X10*3/uL (0.0-0.4); Eosinophils Percent Auto 1.6 % (0-4); Hematocrit 37.2 % (37.0-47.0); Hemoglobin 12.9 g/dl (12.0-16.0); Imm Gran Abs Auto 0.01 X10*3/uL (0.00-0.03); Imm Gran Pct Auto 0.2 % (0.0-0.4); Lymphocytes Absolute Auto 3.4 X10*3/uL (1.2-4.9); Lymphocytes Percent Auto 60.2 % (20-40); MANUAL DIFF FLAG SCAN; Mean Corpuscular HGB Conc 34.7 g/dl (31.0-35.0); Mean Corpuscular Hemoglobin 31.9 pg (27.0-33.0); Mean Corpuscular Volume 91.9 fL (80.0-98.0); Mean Platelet Volume 9.2 fL (9.4-12.3); Monocytes Absolute Auto 0.4 X10*3/uL (0.1-1.2); Monocytes Percent Auto 6.9 % (2-11); Neutrophils Absolute Auto 1.7 x10*3/uL (2.0-8.3); Neutrophils Percent Auto 30.4 % (45-73); Platelet Count 241 X10*3/uL (160-400); Red Blood Count 4.05 X10*6/uL (4.20-5.50); Red Cell Distribution Width 13.1 % (11.0-16.0); SCAN SMEAR FLAG 1; White Blood Count 5.6 X10*3/uL (4.8-10.8)
--- NOTE | 2022-06-06 17:05 | PC.NURSE ---
Pt awake, apologetic. Cooperative with care, labs and covid acquired. Resting comfortably, offering no complaints.
[2022-06-06 17:20] LABS: COVID-19 Test Negative (Negative); IDNOW Serial# 16C4AD1C
[2022-06-06 17:29] LABS: Alanine Aminotransferase 26 U/L (0-31); Albumin Level 3.8 g/dL (3.5-5.0); Alkaline Phosphatase 75 U/L (39-117); Anion Gap 17 (12-20); Aspartate Amino Transferase 36 U/L (5-31); Bilirubin Total 0.4 mg/dL (0.0-1.0); Blood Urea Nitrogen 12 mg/dL (9-16); Calcium 8.7 mg/dL (8.4-10.2); Carbon Dioxide 27 mmol/L (22-29); Chloride 106 mmol/L (96-108); Creatinine Clr Calc Pharmacy 85.2; Estimated Glomerular Filt Rate > 60; Ethanol 308 mg/dL; Glucose Random 100 mg/dL (60-115); SLIDE REVIEW VERIFIED; Sodium 146 mmol/L (135-145); Total Protein 6.9 g/dL (6.5-8.0)
--- NOTE | 2022-06-06 20:40 | MHC.RECOVSUP ---
? Reason for consult:ETOH o? Current location:ED18? o? Identified substance use concern:? -? Support ? Intervention: o? Harm reduction discussion ? Plan: ? Additional information:RC was able to ask pt if she was interested in going to detox, pt asked RC to come back in a little while, a short while after RC observed pt up saying she wanted her belongings and wanted to be discharged.
== END 2022-06-06 19:23 | disposition home or self-care (01) ==
PROVIDERS: Emergency Provider Student in an Organized Health Care Education/Training Program
DX: F32.A Depression, unspecified (principal); F10.120 Alcohol abuse with intoxication, uncomplicated; Y90.8 Blood alcohol level of 240 mg/100 ml or more; Z20.822 Contact with and (suspected) exposure to COVID-19
CPT/HCPCS: 80053; 82077; 85025; 87635; 99283; 99284

== ENCOUNTER 2022-06-07 23:23 | Emergency (ER) | payer OTHER, SELFPAY ==
[2022-06-07 23:49] VITALS: BP 138/100; BP 139/83; PULSE 88; PULSE 92; RESP 18; TEMP 36.7; O2SAT 95; BMI 32.1
--- NOTE | 2022-06-08 00:12 | ECG_ITS ---
Test Reason : DETOX Blood Pressure : / mmHG Vent. Rate : 142 BPM Atrial Rate : 344 BPM P-R Int : 168 ms QRS Dur : 068 ms QT Int : 470 ms P-R-T Axes : -88 008 -60 degrees QTc Int : 723 ms AGE AND GENDER SPECIFIC ECG ANALYSIS Undetermined rhythm ST elevation consider lateral injury or acute infarct ACUTE TX / STEMI Abnormal ECG When compared with ECG of 12-MAY-2022 16:28, Significant changes have occurred Referred By: Generic ED Physician Electronically Signed By:
--- NOTE | 2022-06-08 00:13 | PC.NURSE ---
Notified GREGORY Bennett who notified Cami Lawler RN that this RN assessed pt.'s CIWA score as 13 and observed that pt. was starting to get tremulous. GREGORY Bennett notified Gomez Rucker MD and [place] plant supervisor brought pt. back to ED room
[2022-06-08 00:42] LABS: Hematocrit 41.3 % (37.0-47.0); Hemoglobin 13.9 g/dl (12.0-16.0); Mean Corpuscular HGB Conc 33.7 g/dl (31.0-35.0); Mean Corpuscular Volume 89.2 fL (80.0-98.0); Mean Platelet Volume 9.3 fL (9.4-12.3); Platelet Count 261 X10*3/uL (160-400); Red Blood Count 4.63 X10*6/uL (4.20-5.50); Red Cell Distribution Width 12.9 % (11.0-16.0); White Blood Count 7.7 X10*3/uL (4.8-10.8)
[2022-06-08 01:01] LABS: Alanine Aminotransferase 33 U/L (0-31); Albumin Level 4.4 g/dL (3.5-5.0); Alkaline Phosphatase 86 U/L (39-117); Anion Gap 23 (12-20); Aspartate Amino Transferase 45 U/L (5-31); Bilirubin Total 0.9 mg/dL (0.0-1.0); Blood Urea Nitrogen 11 mg/dL (9-16); Calcium 9.3 mg/dL (8.4-10.2); Carbon Dioxide 20 mmol/L (22-29); Chloride 103 mmol/L (96-108); Creatinine Clr Calc Pharmacy 84.7; Estimated Glomerular Filt Rate > 60; Ethanol 214 mg/dL; Glucose Random 103 mg/dL (60-115); Potassium 3.8 mmol/L (3.3-5.1); Sodium 142 mmol/L (135-145); Total Protein 7.9 g/dL (6.5-8.0)
[2022-06-08 02:08] VITALS: BP 158/80; PULSE 93; RESP 14; TEMP 36.5; O2SAT 94
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
--- NOTE | 2022-06-08 03:44 | ED.ALCOHOL ---
HPI - Alcohol General Chief Complaint: ETOH/Substance Use Stated Complaint: Seeking Detox/ETOH Time Seen by Provider: 06/08/22 03:16 History of Present Illness HPI narrative: Patient is 56 years old with history of alcohol abuse and alcohol withdrawal seizures was with her friends decided to come to the hospital to go to detox program patient been here 2 days ago for same. Denies any abdominal pain no nausea no vomiting no diarrhea Related Data Home Medications Medication Instructions Recorded Confirmed acetaminophen 325 mg tablet 650 mg PO Q4H PRN Pain (Scale 05/13/22 05/13/22 Score 1-3) Previous Rx's Medication Instructions Recorded clonidine HCl 0.1 mg tablet 0.1 mg PO BID 30 days #60 tabs 05/24/22 clonidine HCl 0.1 mg tablet 0.3 mg PO BEDTIME 30 days #90 tabs 05/24/22 cyanocobalamin (vitamin B-12) 100 100 mcg PO DAILY 30 days #30 tabs 05/24/22 mcg tablet (Vitamin B-12) escitalopram oxalate 20 mg tablet 1 tab PO DAILY 30 days #30 tabs 05/24/22 folic acid 1 mg tablet 1 tab PO DAILY 30 days #30 tabs 05/24/22 gabapentin 300 mg capsule 300 mg PO TID 30 days #90 caps 05/24/22 hydrocortisone 1 % topical cream 1 appl topical BID PRN Itching 30 05/24/22 days #100 grams hydroxyzine HCl 50 mg tablet 50 mg PO BID PRN Anxiety 30 days 05/24/22 #60 tabs lidocaine 5 % topical patch 1 patch transdermal DAILY 30 days 05/24/22 #30 ea multivitamin with minerals (One 1 tab PO DAILY 30 days #30 tabs 05/24/22 Daily Plus Minerals tablet) naltrexone 50 mg tablet 50 mg PO DAILY 30 days #30 tabs 05/24/22 quetiapine 50 mg tablet 150 mg PO BEDTIME 30 days #90 tabs 05/24/22 thiamine HCl (vitamin B1) 100 mg 100 mg PO DAILY 30 days #30 tabs 05/24/22 tablet Allergies Allergy/AdvReac Type Severity Reaction Status Date / Time No Known Allergies Allergy Verified 06/08/22 00:01 [No Known Allergies*] Review of Systems Review of Systems: Yes all other systems are reviewed and are negative PMFSH Past Medical History Medical History Depression ETOH abuse Mood disorder as late effect of traumatic brain injury TBI (traumatic brain injury) Social History Social History Household Members: Other Household Members Other:: Reports has been couch surfing. Housing: Homeless Do you presently have visiting nurse or other home services: No Alcohol intake: current Patient Tobacco Use Status: Never used Tobacco e-Cigarette/Vaping Use: Never Used Second Hand Smoke Exposure: No Substance Use Type: Caffiene Advance Directives: Yes Advance Directives on File: Yes Advance Directives Date on File: 05/06/21 Patient : No service: No Sexual orientation: Straight/Heterosexual Physical Exam ED Vital Signs: Vital Signs - 24 hr 06/07/22 23:49 06/08/22 02:08 06/08/22 05:34 Temperature 98.0 F 97.7 F Pulse Rate 92 93 94 Respiratory Rate 18 14 18 Blood Pressure 139/83 158/80 H 143/78 H Pulse Oximetry 95 94 97 Oxygen Delivery Method Room Air Room Air Room Air BMI result Body Mass Index 32.1 Appearance: Alert. Oriented X3. No acute distress. Intoxicated anxious Eyes: PERRLA, No Nystagmus ENT: Pharynx normal. Oral Mucosa moist Neck: Normal inspection. Neck supple. CVS: Normal heart rate and rhythm. Pulses normal. Respiratory: No respiratory distress. Equal air entry bilateral, no wheezing/rales/rhonchi Abdomen: Soft and nontender. Bowel sounds are present, no mass palpable, no CVA tenderness Skin: Skin warm and dry. Normal skin color. Normal skin turgor. Extremities: No lower extremity edema. No calf tenderness Neuro: Oriented X 3. No motor deficit. No sensory deficit.No cerebellar signs , cranial nerves II-XII intact MDM - Alcohol MDM Narrative Medical decision making narrative: Patient alcoholic drinks vodka 6- 7 nibs a day been to detox last time was 2 months ago and stayed sober for a month would like to go to detox again will keep patient in the ER for recovery question to see the patient Lab Data Result diagrams: 06/08/22 00:35 06/08/22 00:35 Labs: Lab Results 06/08/22 06/08/22 Range/Units 00:35 00:35 WBC 7.7 (4.8-10.8) X10*3/uL RBC 4.63 (4.20-5.50) X10*6/uL Hgb 13.9 (12.0-16.0) g/dl Hct 41.3 (37.0-47.0) % MCV 89.2 (80.0-98.0) fL MCH 30.0 (27.0-33.0) pg MCHC 33.7 (31.0-35.0) g/dl RDW 12.9 (11.0-16.0) % Plt Count 261 (160-400) X10*3/uL MPV 9.3 L (9.4-12.3) fL Absolute Nucleated RBC 0.000 (0.0-0.012) X10*3/uL Nucleated RBC % (auto) 0.0 (0.0-0.2) /100WBC Sodium 142 (135-145) mmol/L Potassium 3.8 (3.3-5.1) mmol/L Chloride 103 (96-108) mmol/L Carbon Dioxide 20 L (22-29) mmol/L Anion Gap 23 H (12-20) BUN 11 (9-16) mg/dL Creatinine 0.68 (0.5-1.4) mg/dL Estim Creat Clear Calc 84.7 Estimated GFR > 60 Random Glucose 103 (60-115) mg/dL Calcium 9.3 D (8.4-10.2) mg/dL Total Bilirubin 0.9 (0.0-1.0) mg/dL AST 45 H (5-31) U/L ALT 33 H (0-31) U/L Alkaline Phosphatase 86 (39-117) U/L Total Protein 7.9 (6.5-8.0) g/dL Albumin 4.4 (3.5-5.0) g/dL Ethyl Alcohol 214 mg/dL Discharge Plan Discharge Clinical Impression: Alcoholic intoxication Patient Disposition: Still a Patient Prescriptions: No Action acetaminophen 325 mg Tablet 650 mg PO Q4H PRN (Reason: Pain (Scale Score 1-3)) clonidine HCl 0.1 mg Tablet 0.3 mg PO BEDTIME 30 Days Qty: 90 0RF Protocol: Hold for SBP< HOLD for SBP < : 90 clonidine HCl 0.1 mg Tablet 0.1 mg PO BID 30 Days Qty: 60 0RF Protocol: Hold for SBP< HOLD for SBP < : 90 naltrexone 50 mg Tablet 50 mg PO DAILY 30 Days Qty: 30 0RF quetiapine 50 mg Tablet 150 mg PO BEDTIME 30 Days Qty: 90 0RF cyanocobalamin (vitamin B-12) [Vitamin B-12] 100 mcg Tablet 100 mcg PO DAILY 30 Days Qty: 30 0RF hydrocortisone 1 % Cream 1 appl topical BID PRN (Reason: Itching) 30 Days Qty: 100 0RF Protocol: Apply to: Apply to: under the right breast thiamine HCl (vitamin B1) 100 mg Tablet 100 mg PO DAILY 30 Days Qty: 30 0RF hydroxyzine HCl 50 mg Tablet 50 mg PO BID PRN (Reason: Anxiety) 30 Days Qty: 60 0RF lidocaine 5 % Adhesive Patch,Medicated 1 patch transdermal DAILY 30 Days Qty: 30 0RF gabapentin 300 mg Capsule 300 mg PO TID 30 Days Qty: 90 0RF folic acid 1 mg tablet 1 tab PO DAILY 30 Days Qty: 30 0RF One Daily Plus Minerals Tablet 1 tab PO DAILY 30 Days Qty: 30 0RF escitalopram oxalate 20 mg tablet 1 tab PO DAILY 30 Days Qty: 30 0RF
[2022-06-08 05:34] VITALS: BP 143/78; PULSE 94; RESP 18; O2SAT 97
[2022-06-08 06:20] VITALS: BP 118/70; PULSE 108; RESP 17; TEMP 36.6; O2SAT 98
[2022-06-08] MEDS: LORazepam 1 MG TABLET 2 MG PO ×2 (06:26→11:16)
[2022-06-08 07:08] LABS: COVID-19 Test Negative (Negative)
--- NOTE | 2022-06-08 12:12 | MHC.RECOVSUP ---
Recovery Support note: Patient presented to [facility] seeking detox. Patient referred to [facility] and accepted for treatment. Transported via [employer].
== END 2022-06-08 12:15 | disposition skilled nursing facility (03) ==
PROVIDERS: Emergency Provider Internal Medicine; PCP Internal Medicine
DX: F10.220 Alcohol dependence with intoxication, uncomplicated (principal); F10.230 Alcohol dependence with withdrawal, uncomplicated; Y90.7 Blood alcohol level of 200-239 mg/100 ml; F41.9 Anxiety disorder, unspecified; R25.1 Tremor, unspecified; F32.A Depression, unspecified; Z87.820 Personal history of traumatic brain injury; Z79.899 Other long term (current) drug therapy; Z20.822 Contact with and (suspected) exposure to COVID-19
CPT/HCPCS: 36415; 80053; 82077; 85027; 87635; 93005; 99285

== ENCOUNTER 2022-07-08 17:32 | Emergency (ER) | payer OTHER, SELFPAY ==
--- NOTE | 2022-07-08 17:36 | ED_ITS ---
HPI - Psych General Chief Complaint: Psychiatric Symptoms Stated Complaint: crisis Time Seen by Provider: 07/08/22 17:35 Source: patient, EMS and old records reviewed Mode of arrival: EMS Limitations: no limitations History of Present Illness HPI Narrative: 56-year-old female with history of alcohol use disorder, history of alcohol withdrawal seizures, major depression who presents to the ER via EMS for evaluation of suicidal ideation and alcohol intoxication. She reported was found in a grocery store parking lot after drinking 10 nips. She stated she was wanting to with a plan to overdose on medications. On arrival to the ER patient is intoxicated. She states she ?has no problem. ? She is not suicidal upon interview. She states she went to [facility] recently but took back up drinking as soon as she got out. MD complaint: alcohol abuse Duration: changing over time History of same: Yes Relieving factors: none Exacerbating factors: alcohol Context: recent alcohol abuse Associated psychiatric symptoms: depression and suicidal ideation Associated symptoms: denies other symptoms Treatments prior to arrival: placed on mental health hold If self harm: admits thoughts of self harm and has plan Details of plan: OD on pills Related Data Home Medications Medication Instructions Recorded Confirmed acetaminophen 325 mg tablet 650 mg PO Q4H PRN Pain (Scale 05/13/22 07/08/22 Score 1-3) clonidine HCl 0.1 mg tablet 0.1 mg PO BEDTIME 07/08/22 07/08/22 lidocaine 5 % topical ointment 1 appl topical TID PRN moderate 07/08/22 07/08/22 pain minerals 1 tab PO QAM 07/08/22 07/08/22 quetiapine 50 mg tablet 100 mg PO BEDTIME 07/08/22 07/08/22 Previous Rx's Medication Instructions Recorded escitalopram oxalate 20 mg tablet 1 tab PO DAILY 30 days #30 tabs 05/24/22 folic acid 1 mg tablet 1 tab PO DAILY 30 days #30 tabs 05/24/22 gabapentin 300 mg capsule 300 mg PO TID 30 days #90 caps 05/24/22 hydroxyzine HCl 50 mg tablet 50 mg PO BID PRN Anxiety 30 days 05/24/22 #60 tabs lidocaine 5 % topical patch 1 patch transdermal DAILY 30 days 05/24/22 #30 ea thiamine HCl (vitamin B1) 100 mg 100 mg PO DAILY 30 days #30 tabs 05/24/22 tablet Allergies Allergy/AdvReac Type Severity Reaction Status Date / Time No Known Allergies Allergy Verified 07/08/22 17:36 [No Known Allergies*] Review of Systems Review of Systems: Constitutional: No Fever, No Chills ENT/Mouth: No sore throat, No Rhinorrhea Cardiovascular: No Chest Pain, No SOB Respiratory: No Cough, No Sputum, No Wheezing, No dyspnea Gastrointestinal: No Nausea, No Vomiting, No Diarrhea, No abdominal Pain Musculoskeletal: No joint pain, No Myalgias Skin: No Skin Lesions, No rash Neuro: No Weakness, No Numbness, No Dizziness, +Headache Psych: No Anxiety/Panic, +Depression, No SI, No HI, No AH, No VH Heme/Lymph: No Bruising, No Lymphadenopathy PMFSH Past Medical History Medical History Depression ETOH abuse Mood disorder as late effect of traumatic brain injury TBI (traumatic brain injury) Social History Social History Household Members: Other Household Members Other:: Reports has been [place]. Housing: Homeless Do you presently have visiting nurse or other home services: No Alcohol intake: current Patient Tobacco Use Status: Never used Tobacco e-Cigarette/Vaping Use: Never Used Second Hand Smoke Exposure: No Substance Use Type: Caffiene Advance Directives: Yes Advance Directives on File: Yes Advance Directives Date on File: 05/06/21 service: No Sexual orientation: Straight/Heterosexual Physical Exam Vital Signs: Vital Signs: Last Vital Signs Temp 97.3 F 07/08/22 17:43 Pulse 86 07/08/22 17:43 Resp 16 07/08/22 20:00 BP 144/77 H 07/08/22 17:43 Pulse Ox 97 07/08/22 17:43 O2 Del Method 07/08/22 17:43 BMI result Body Mass Index 34.2 Appearance: Alert. Oriented X3. No acute distress. Smells of alcohol Eyes: Pupils equal, round and reactive to light. ENT: Pharynx normal. Neck: Normal inspection. Neck supple. CVS: Normal heart rate and rhythm. Pulses normal. Respiratory: No respiratory distress. Breath sounds normal. Abdomen: Soft and nontender. +BS x4 Skin: Skin warm and dry. Normal skin color. Normal skin turgor. No rashes. Extremities: No lower extremity edema. Neuro/psych: Oriented X 3. No motor deficit. No sensory deficit. CN II-XII intact. Tired, denies SI. Short responses. Course Course Course Narrative: 48-year-old female with a history of alcohol abuse disorder, recently and detox who presents to the ER for evaluation of suicidal ideation and alcohol intoxication. She reportedly drinks 10 nips today and was found in the stoppage out parking lot. She admitted to to PD & EMS. She is currently denying any suicidal ideation. She would like to sleep. Plan to check her alcohol level, U tox, basic labs and have crisis team evaluate her once clinically sober. Reevaluation(s) Reevaluation #1: Lab workup was unremarkable. Alcohol level is 299 at 16:37. She will not be clinically sober for several hours. Will place patient in physician observation at this time Physician observation started at 20:55. Patient placed in physician observation because patient is awaiting sober [facility] evaluation for the possible need of inpatient psych admission. At the time observation was started patient's vital signs were stable. Patient is alert and oriented. Neuro exam is non-focal. CV: RRR and lungs are clear. Will continue to monitor. MDM - Psych Lab Data Result diagrams: 07/08/22 18:37 07/08/22 18:37 Labs: Lab Results 07/08/22 07/08/22 07/08/22 Range/Units 17:56 18:37 18:37 WBC 6.2 (4.8-10.8) X10*3/uL RBC 4.05 L (4.20-5.50) X10*6/uL Hgb 12.6 (12.0-16.0) g/dl Hct 37.1 (37.0-47.0) % MCV 91.6 (80.0-98.0) fL MCH 31.1 (27.0-33.0) pg MCHC 34.0 (31.0-35.0) g/dl RDW 13.0 (11.0-16.0) % Plt Count 253 (160-400) X10*3/uL MPV 9.8 (9.4-12.3) fL Immature Gran % (Auto) 0.3 (0.0-0.4) % Neut % (Auto) 39.0 L (45-73) % Lymph % (Auto) 53.7 H (20-40) % [place] % (Auto) 4.9 (2-11) % Eos % (Auto) 1.5 (0-4) % Baso % (Auto) 0.6 (0-2) % Lymph # (Auto) 3.3 (1.2-4.9) X10*3/uL [place] # (Auto) 0.3 (0.1-1.2) X10*3/uL Eos # (Auto) 0.1 (0.0-0.4) X10*3/uL Baso # (Auto) 0.0 (0.0-0.2) X10*3/uL Abs Immat Gran (auto) 0.02 (0.00-0.03) X10*3/uL Absolute Neuts (auto) 2.4 (2.0-8.3) x10*3/uL Absolute Nucleated RBC 0.000 (0.0-0.012) X10*3/uL Nucleated RBC % (auto) 0.0 (0.0-0.2) /100WBC Sodium 147 H (135-145) mmol/L Potassium 4.0 (3.3-5.1) mmol/L Chloride 109 H (96-108) mmol/L Carbon Dioxide 24 (22-29) mmol/L Anion Gap 18 (12-20) BUN 21 H D (9-16) mg/dL Creatinine 0.91 (0.5-1.4) mg/dL Estim Creat Clear Calc 62.8 Estimated GFR > 60 Random Glucose 136 H (60-115) mg/dL Calcium 8.7 D (8.4-10.2) mg/dL Magnesium 1.8 (1.6-2.6) mg/dL Total Bilirubin < 0.2 (0.0-1.0) mg/dL Direct Bilirubin < 0.2 (0.0-0.5) mg/dL AST 18 D (5-31) U/L ALT 19 (0-31) U/L Alkaline Phosphatase 71 (39-117) U/L Total Protein 7.1 (6.5-8.0) g/dL Albumin 4.0 (3.5-5.0) g/dL Ethyl Alcohol mg/dL COVID-19 (GARCIA) Negative (Negative) COVID-19 Clin Com See Note 07/08/22 Range/Units 18:37 WBC (4.8-10.8) X10*3/uL RBC (4.20-5.50) X10*6/uL Hgb (12.0-16.0) g/dl Hct (37.0-47.0) % MCV (80.0-98.0) fL MCH (27.0-33.0) pg MCHC (31.0-35.0) g/dl RDW (11.0-16.0) % Plt Count (160-400) X10*3/uL MPV (9.4-12.3) fL Immature Gran % (Auto) (0.0-0.4) % Neut % (Auto) (45-73) % Lymph % (Auto) (20-40) % [place] % (Auto) (2-11) % Eos % (Auto) (0-4) % Baso % (Auto) (0-2) % Lymph # (Auto) (1.2-4.9) X10*3/uL [place] # (Auto) (0.1-1.2) X10*3/uL Eos # (Auto) (0.0-0.4) X10*3/uL Baso # (Auto) (0.0-0.2) X10*3/uL Abs Immat Gran (auto) (0.00-0.03) X10*3/uL Absolute Neuts (auto) (2.0-8.3) x10*3/uL Absolute Nucleated RBC (0.0-0.012) X10*3/uL Nucleated RBC % (auto) (0.0-0.2) /100WBC Sodium (135-145) mmol/L Potassium (3.3-5.1) mmol/L Chloride (96-108) mmol/L Carbon Dioxide (22-29) mmol/L Anion Gap (12-20) BUN (9-16) mg/dL Creatinine (0.5-1.4) mg/dL Estim Creat Clear Calc Estimated GFR Random Glucose (60-115) mg/dL Calcium (8.4-10.2) mg/dL Magnesium (1.6-2.6) mg/dL Total Bilirubin (0.0-1.0) mg/dL Direct Bilirubin (0.0-0.5) mg/dL AST (5-31) U/L ALT (0-31) U/L Alkaline Phosphatase (39-117) U/L Total Protein (6.5-8.0) g/dL Albumin (3.5-5.0) g/dL Ethyl Alcohol 299 mg/dL COVID-19 (GARCIA) (Negative) COVID-19 Clin Com Critical Care Time Critical Care Time Critical Care Time: No Discharge Plan Discharge Clinical Impression: Alcohol intoxication Patient Disposition: Still a Patient Prescriptions: No Action acetaminophen 325 mg Tablet 650 mg PO Q4H PRN (Reason: Pain (Scale Score 1-3)) thiamine HCl (vitamin B1) 100 mg Tablet 100 mg PO DAILY 30 Days Qty: 30 0RF hydroxyzine HCl 50 mg Tablet 50 mg PO BID PRN (Reason: Anxiety) 30 Days Qty: 60 0RF lidocaine 5 % Adhesive Patch,Medicated 1 patch transdermal DAILY 30 Days Qty: 30 0RF gabapentin 300 mg Capsule 300 mg PO TID 30 Days Qty: 90 0RF folic acid 1 mg tablet 1 tab PO DAILY 30 Days Qty: 30 0RF escitalopram oxalate 20 mg tablet 1 tab PO DAILY 30 Days Qty: 30 0RF minerals Tablet 1 tab PO QAM lidocaine 5 % ointment 1 appl topical TID PRN (Reason: moderate pain) clonidine HCl 0.1 mg tablet 0.1 mg PO BEDTIME Protocol: Hold for SBP< HOLD for SBP < : 90 quetiapine 50 mg tablet 100 mg PO BEDTIME
[2022-07-08 17:43] VITALS: BP 144/77; BP 158/80; PULSE 86; PULSE 88; RESP 18; TEMP 36.3; O2SAT 97; O2SAT 98; BMI 34.2
--- NOTE | 2022-07-08 18:39 | PC.NURSE ---
pt a&ox3, vss, reports SI w/ plan, med rec completed w pt rx bottles. labs drawn by hotel maintenance technician.
[2022-07-08 18:43] LABS: MANUAL DIFF FLAG NO
[2022-07-08 18:44] LABS: COVID-19 Test Negative (Negative); IDNOW Serial# 16C4AD1C
[2022-07-08 18:59] LABS: Ethanol 299 mg/dL
[2022-07-08 19:01] LABS: Basophils Percent Auto 0.6 % (0-2); Eosinophils Absolute Auto 0.1 X10*3/uL (0.0-0.4); Eosinophils Percent Auto 1.5 % (0-4); Hematocrit 37.1 % (37.0-47.0); Hemoglobin 12.6 g/dl (12.0-16.0); Imm Gran Abs Auto 0.02 X10*3/uL (0.00-0.03); Imm Gran Pct Auto 0.3 % (0.0-0.4); Lymphocytes Absolute Auto 3.3 X10*3/uL (1.2-4.9); Lymphocytes Percent Auto 53.7 % (20-40); Mean Corpuscular Hemoglobin 31.1 pg (27.0-33.0); Mean Corpuscular Volume 91.6 fL (80.0-98.0); Mean Platelet Volume 9.8 fL (9.4-12.3); Monocytes Absolute Auto 0.3 X10*3/uL (0.1-1.2); Monocytes Percent Auto 4.9 % (2-11); Neutrophils Absolute Auto 2.4 x10*3/uL (2.0-8.3); Platelet Count 253 X10*3/uL (160-400); Red Blood Count 4.05 X10*6/uL (4.20-5.50); White Blood Count 6.2 X10*3/uL (4.8-10.8)
[2022-07-08 19:02] LABS: Alanine Aminotransferase 19 U/L (0-31); Alkaline Phosphatase 71 U/L (39-117); Anion Gap 18 (12-20); Aspartate Amino Transferase 18 U/L (5-31); Bilirubin Direct < 0.2 mg/dL (0.0-0.5); Bilirubin Total < 0.2 mg/dL (0.0-1.0); Blood Urea Nitrogen 21 mg/dL (9-16); Calcium 8.7 mg/dL (8.4-10.2); Carbon Dioxide 24 mmol/L (22-29); Chloride 109 mmol/L (96-108); Creatinine Clr Calc Pharmacy 62.8; Estimated Glomerular Filt Rate > 60; Glucose Random 136 mg/dL (60-115); Magnesium 1.8 mg/dL (1.6-2.6); Sodium 147 mmol/L (135-145); Total Protein 7.1 g/dL (6.5-8.0)
--- NOTE | 2022-07-08 19:07 | PC.NURSE ---
Addendum entered by Silke Green RN 07/09/22 06:49: report given to GREGORY Melendez Addendum entered by Silke Green RN 07/09/22 06:36: [facility] referral submitted Addendum entered by Silke Green RN 07/08/22 20:12: pt appear asleep. no signs of acute distress notice breathing equally unlabored close monitoring maintained Original Note: report received from GREGORY Sewell
[2022-07-08 20:00] VITALS: RESP 16
[2022-07-09 02:00] VITALS: RESP 20
[2022-07-09 05:05] VITALS: BP 130/84; PULSE 119; RESP 17; TEMP 36.5; O2SAT 94
[2022-07-09 05:15] LABS: Appearance Urine Clear; Color Urine Yellow; Glucose Urine UA Negative (Negative); Leukocyte Esterase Urine Trace (Negative); Nitrite Urine Positive (Negative); PH 5.5 (5.0-9.0); UMIC TRIGGER UACC YES; Urine Blood Negative (Negative); Urine Ketones Trace mg/dL (Negative); Urine Protein Negative (Neg-Trace)
[2022-07-09 05:18] LABS: Bacteria Urine 4+ (None Seen); Hyaline Casts Urine 0-2 /LPF (0-2); RBC Urine 0-2 /HPF (0-2); Squamous Epithelial Cell Urine 0-2 /HPF (0-2); UACC Culture Trigger YES
[2022-07-09 05:25] LABS: Amphetamine Screen Urine Not Detected (Not Detect); Barbiturates, Urine Not Detected (Not Detect); Benzodiazepines Screen Urine Not Detected (Not Detect); Cannabinoid Screen Urine Not Detected (Not Detect); Cocaine Screen Urine Not Detected (Not Detect); Fentanyl, urine POSITIVE (Not Detect); Opiate Screen Urine Not Detected (Not Detect); Phencyclidine Screen Urine Not Detected (Not Detect)
[2022-07-09] MEDS: LORazepam 1 MG TABLET 2 MG PO (07:29)
[2022-07-09 07:45] VITALS: BP 153/94; PULSE 102; RESP 12; TEMP 36.4; O2SAT 96
--- NOTE | 2022-07-09 07:48 | PC.NURSE ---
patient appears to remain at rest at present patient ap[proached t/w reporting etoh wd sx, gave 2mg po ativan, will document ciwa assessment and patient appears amenable to seek tx for etoh detox. patient appears in no acute distress. states med compliance.
--- NOTE | 2022-07-09 09:33 | MHC.RECOVRN ---
Briefly met with pt to discuss alcohol use. Pt reports discharging from [facility] on Jul 01 after being there for one month. Pt states All you do is color and do puzzles, it doesn't help you. Detox and CSS people are all together. Pt reports currently receiving Vivitrol and states I don't know why I drank again. Pt reports having a folder of information at a friend's house that pt was given upon dc from [facility]. Pt is not interested in ATS linkage from [facility], would like to follow up outpatient. Denies questions or concerns for t/w. CARE Team and RN aware.
== END 2022-07-09 10:34 | disposition home or self-care (01) ==
PROVIDERS: Physician Assistant; Emergency Provider Internal Medicine
DX: R45.851 Suicidal ideations (principal); F10.120 Alcohol abuse with intoxication, uncomplicated; Y90.8 Blood alcohol level of 240 mg/100 ml or more; F32.9 Major depressive disorder, single episode, unspecified; Z20.822 Contact with and (suspected) exposure to COVID-19; Z79.899 Other long term (current) drug therapy
CPT/HCPCS: 36415; 80048; 80076; 80307; 81001; 82077; 83735; 85025; 87086; 87088; 87186; 87635; 99284; 99285

== ENCOUNTER 2022-07-11 19:36 | Emergency (ER) | payer OTHER, SELFPAY ==
--- NOTE | ~2022-07-11 | CT_ITS ---
EXAMINATION: CT HEAD WITHOUT CONTRAST CLINICAL INFORMATION: hypotensive ? fall, etoh COMPARISON: 05/06/2021 TECHNIQUE: Contiguous axial imaging was performed from the skull base to vertex without intravenous administration of contrast. This CT examination was performed using dose optimization techniques as appropriate, variously including the following: *Automated exposure control *Adjustment of mA and/or kV according to patient size (this includes techniques or standardized protocols for targeted exams where dose is matched to indication/reason for exam; i.e. extremities or head) *Use of iterative reconstruction technique Dose: 626 mGy-cm FINDINGS: There is no evidence of acute intracranial hemorrhage or territorial infarction. No abnormal mass-effect or midline shift is seen. [place] to white matter differentiation is well preserved. No extra axial fluid collections. The ventricles are normal in size and configuration. Focal areas of encephalomalacia are again seen in the bilateral temporal lobes over the petrous ridges of the temporal bones. A few subtle foci of hypoattenuation in the subcortical and periventricular white matter are most consistent with chronic microangiopathic changes. The soft tissues and osseous structures are normal. The sinuses and mastoid air cells are clear. CT/CT head/brain wo IV con IMPRESSION: No acute intracranial pathology.
--- NOTE | ~2022-07-11 | XR_ITS ---
EXAMINATION: XR CHEST CLINICAL INFORMATION: Shortness of breath. COMPARISON: Chest radiograph 05/06/2021. TECHNIQUE: Frontal view of the chest was obtained. FINDINGS: Stable appearance of the cardiomediastinal silhouette. Mild platelike opacities in the right lower lobe favored to represent subsegmental atelectasis or scarring. No focal consolidation, pleural effusion or pneumothorax. Chronic appearing left-sided rib deformities similar compared to 05/06/2021. No acute osseous abnormalities. XR/XR chest 1V IMPRESSION: Mild platelike opacities in the right lower lobe favored to represent subsegmental atelectasis or scarring. No focal consolidation.
[2022-07-11 19:54] VITALS: BP 113/67; BP 141/94; PULSE 85; PULSE 86; RESP 16; TEMP 36.4; O2SAT 95; O2SAT 96; BMI 33.0
--- NOTE | 2022-07-11 20:05 | ECG_ITS ---
Test Reason : alcohol w/ drawl Blood Pressure : / mmHG Vent. Rate : 070 BPM Atrial Rate : 070 BPM P-R Int : 196 ms QRS Dur : 080 ms QT Int : 444 ms P-R-T Axes : 054 022 014 degrees QTc Int : 479 ms Normal sinus rhythm Low voltage QRS Borderline ECG When compared with ECG of 08-JUN-2022 00:26, No significant change was found Referred By: Le Montalvo Electronically Signed By:JAY RICARDO MD
--- NOTE | 2022-07-11 20:37 | ED_ITS ---
HPI - Alcohol General Chief Complaint: ETOH/Substance Use Stated Complaint: Seeking Detox Time Seen by Provider: 07/11/22 19:55 Source: patient and EMS Mode of arrival: EMS Limitations: no limitations History of Present Illness HPI narrative: 56-year-old female history of chronic alcohol abuse on Vivitrol, TBI, mood d/o, depression presents to the emergency department requesting detox. Patient tells me that despite being on Vivitrol patient has been drinking regularly, she reports she drinks anywhere between 6-8 shots per day. Last drink was just prior to arrival. Patient reports this is really starting to interfere with her activities of daily living. Patient tells me if she does not drink she becomes tremulous. Particularly in the morning after she wakes up. Patient endorses history of alcohol withdrawal seizures. Patient denies suicidal and homicidal ideation. Denies visual, auditory and tactile hallucinations. Patient was vague complaints of shortness of breath both at rest and with exertion, tells me this has been going on for 3 days. Denies any other medical complaints at this time. Related Data Home Medications Medication Instructions Recorded Confirmed acetaminophen 325 mg tablet 650 mg PO Q4H PRN Pain (Scale 05/13/22 07/08/22 Score 1-3) clonidine HCl 0.1 mg tablet 0.1 mg PO BEDTIME 07/08/22 07/08/22 lidocaine 5 % topical ointment 1 appl topical TID PRN moderate 07/08/22 07/08/22 pain minerals 1 tab PO QAM 07/08/22 07/08/22 quetiapine 50 mg tablet 100 mg PO BEDTIME 07/08/22 07/08/22 Previous Rx's Medication Instructions Recorded escitalopram oxalate 20 mg tablet 1 tab PO DAILY 30 days #30 tabs 05/24/22 folic acid 1 mg tablet 1 tab PO DAILY 30 days #30 tabs 05/24/22 gabapentin 300 mg capsule 300 mg PO TID 30 days #90 caps 05/24/22 hydroxyzine HCl 50 mg tablet 50 mg PO BID PRN Anxiety 30 days 05/24/22 #60 tabs lidocaine 5 % topical patch 1 patch transdermal DAILY 30 days 05/24/22 #30 ea thiamine HCl (vitamin B1) 100 mg 100 mg PO DAILY 30 days #30 tabs 05/24/22 tablet Allergies Allergy/AdvReac Type Severity Reaction Status Date / Time No Known Allergies Allergy Verified 07/08/22 17:36 [No Known Allergies*] Review of Systems Review of Systems: Constitutional : No Weight loss, No Fever, No Chills, No Fatigue, No Malaise ENT/Mouth : No sore throat, No Rhinorrhea Eyes: No Eye Pain, No Swelling, No Redness Cardiovascular : No Chest Pain, + SOB, No Dyspnea on Exertion, No Orthopnea, No Edema, No Palpitations Respiratory : No Cough, No Sputum, No Wheezing Gastrointestinal : No Nausea, No Vomiting, No Diarrhea, No Constipation, No abdominal Pain, No Hematochezia, No Melena Genitourinary : No Dysuria, No Urinary Frequency, No Hematuria, Musculoskeletal : No joint pain, No Myalgias, No Joint Swelling Skin : No Skin Lesions, No rash Neuro : No Weakness, No Numbness, No Dizziness, No Headache Psych : No Anxiety/Panic, No Depression All other systems reviewed and are negative Yes all other systems are reviewed and are negative [facility] Past Medical History Attestation statement: The following information was validated with the patient. Source: old records reviewed and nursing notes reviewed Medical History Depression ETOH abuse Mood disorder as late effect of traumatic brain injury TBI (traumatic brain injury) Social History Social History Household Members: Other Household Members Other:: Reports has been [employer]. Housing: Homeless Do you presently have visiting nurse or other home services: No Alcohol intake: current Patient Tobacco Use Status: Never used Tobacco e-Cigarette/Vaping Use: Never Used Second Hand Smoke Exposure: No Substance Use Type: Caffiene Advance Directives: Yes Advance Directives on File: Yes Advance Directives Date on File: 05/06/21 service: No Sexual orientation: Straight/Heterosexual Physical Exam ED Vital Signs: Vital Signs - 24 hr 07/11/22 19:54 07/11/22 23:10 07/11/22 23:14 Temperature 97.6 F 98.0 F Pulse Rate 85 70 Respiratory Rate 16 18 Blood Pressure 113/67 68/49 L 90/54 L Pulse Oximetry 95 93 Oxygen Delivery Method Room Air Room Air 07/11/22 23:40 07/11/22 23:51 07/12/22 00:16 Temperature 98.1 F Pulse Rate 68 72 69 Respiratory Rate 14 14 14 Blood Pressure 92/59 L 101/61 109/67 Pulse Oximetry 96 96 97 Oxygen Delivery Method Room Air Room Air Room Air BMI result Body Mass Index 33.0 vss Appearance: Alert.? Oriented X3.? No acute distress.? No diaphoresis. Head: Normocephalic, atraumatic, no step-offs or deformities Eyes: Pupils equal, round and reactive to light.?No tongue fasciculations Neck: Normal inspection.? Neck supple.? CVS: Normal heart rate and rhythm.? Pulses normal.? Respiratory: No respiratory distress.? Breath sounds normal.? Abdomen: Soft and nontender.? Skin: Skin warm and dry.? Normal skin color.? Normal skin turgor.? Extremities: No lower extremity edema.? No calf ttp. 5/5 strength to bilateral upper and lower extremities. No resting tremors. Neuro: Oriented X 3.? No motor deficit.? No sensory deficit. CN 2-12 intact Course Reevaluation(s) Reevaluation #1: CBC appears to be around patient's baseline. Chemistry with no acute findings requiring intervention. Salicylates, acetaminophen negative. Ethanol level 155. Covid negative. X-ray with mild platelike opacities in the right lower lobe favoring subsegmental atelectasis or scarring. No consolidations. Urine and urine toxicology pending. Time: 23:14 Reevaluation #2: Patient now hypotensive, will order CT of the head to rule out bleed. Time: 23:15 Reevaluation #3: Patient's pressure responding well to fluids, likely dehydration. I do not suspect infection or sepsis on her. At this time patient will be placed in physician observation to allow more time to be evaluated by the behavioral health team. Pending UA and REYNOSO. Sign-out given to doctors Girish . Pending substance use disorder and evaluation. Time of evaluation was started patient's pressure improving, patient mentating well alert and oriented x4, no complaints at this time. Time: 01:28 Medications Administered Discontinued Medications Generic Name Dose Route Start Last Admin Trade Name Freq PRN Reason Stop Dose Admin Sodium Chloride 1,000 mls @ 999 mls/hr 07/11/22 23:30 07/12/22 00:47 Ns IV 07/12/22 00:30 Infused .Q1H1M MYRA Infusion Lorazepam 1 mg 07/11/22 20:04 07/11/22 22:14 Lorazepam 1 Mg Tablet PO 07/11/22 20:05 1 mg ONCE ONE Administration MDM - Alcohol MDM Narrative Medical decision making narrative: 2030 This is a 56-year-old female presenting to the emergency department seeking detox. Drinks daily, currently on Vivitrol. Reports vague shortness of breath for 3 days. No history of DVT or PE. Not on blood thinners. Physical examination benign. Shortness of breath unlikely pneumonia, PE. Likely viral in origin. Will obtain basic labs, imaging, urine, ethanol, REYNOSO Medical Records Attestation: I reviewed the patient's medical records. Lab Data Attestation: I reviewed the patient's lab results. Result diagrams: 07/11/22 22:09 07/11/22 22:09 Labs: Lab Results 07/11/22 07/11/22 07/11/22 Range/Units 22:09 22:09 22:09 WBC 7.7 (4.8-10.8) X10*3/uL RBC 3.86 L (4.20-5.50) X10*6/uL Hgb 11.7 L (12.0-16.0) g/dl Hct 35.2 L (37.0-47.0) % MCV 91.2 (80.0-98.0) fL MCH 30.3 (27.0-33.0) pg MCHC 33.2 (31.0-35.0) g/dl RDW 13.1 (11.0-16.0) % Plt Count 233 (160-400) X10*3/uL MPV 9.6 (9.4-12.3) fL Immature Gran % (Auto) 0.1 (0.0-0.4) % Neut % (Auto) 36.8 L (45-73) % Lymph % (Auto) 54.0 H (20-40) % [place] % (Auto) 6.3 (2-11) % Eos % (Auto) 2.2 (0-4) % Baso % (Auto) 0.6 (0-2) % Lymph # (Auto) 4.2 (1.2-4.9) X10*3/uL [place] # (Auto) 0.5 (0.1-1.2) X10*3/uL Eos # (Auto) 0.2 (0.0-0.4) X10*3/uL Baso # (Auto) 0.1 (0.0-0.2) X10*3/uL Abs Immat Gran (auto) 0.01 (0.00-0.03) X10*3/uL Absolute Neuts (auto) 2.8 (2.0-8.3) x10*3/uL Absolute Nucleated RBC 0.000 (0.0-0.012) X10*3/uL Nucleated RBC % (auto) 0.0 (0.0-0.2) /100WBC D-Dimer High Sensitivty NG/ML Sodium 140 (135-145) mmol/L Potassium 4.4 (3.3-5.1) mmol/L Chloride 104 (96-108) mmol/L Carbon Dioxide 25 (22-29) mmol/L Anion Gap 15 (12-20) BUN 15 (9-16) mg/dL Creatinine 0.76 (0.5-1.4) mg/dL Estim Creat Clear Calc 76.9 Estimated GFR > 60 Random Glucose 122 H (60-115) mg/dL Calcium 8.8 (8.4-10.2) mg/dL Magnesium 1.9 (1.6-2.6) mg/dL Total Bilirubin 0.5 (0.0-1.0) mg/dL AST 22 (5-31) U/L ALT 20 (0-31) U/L Alkaline Phosphatase 67 (39-117) U/L Total Protein 6.6 (6.5-8.0) g/dL Albumin 3.8 (3.5-5.0) g/dL Salicylates < 5.0 L (15-30) mg/dL Acetaminophen < 1 (<30) mcg/mL Ethyl Alcohol mg/dL COVID-19 (GARCIA) Negative (Negative) COVID-19 Clin Com See Note 07/11/22 07/11/22 Range/Units 22:09 22:09 WBC (4.8-10.8) X10*3/uL RBC (4.20-5.50) X10*6/uL Hgb (12.0-16.0) g/dl Hct (37.0-47.0) % MCV (80.0-98.0) fL MCH (27.0-33.0) pg MCHC (31.0-35.0) g/dl RDW (11.0-16.0) % Plt Count (160-400) X10*3/uL MPV (9.4-12.3) fL Immature Gran % (Auto) (0.0-0.4) % Neut % (Auto) (45-73) % Lymph % (Auto) (20-40) % [place] % (Auto) (2-11) % Eos % (Auto) (0-4) % Baso % (Auto) (0-2) % Lymph # (Auto) (1.2-4.9) X10*3/uL [place] # (Auto) (0.1-1.2) X10*3/uL Eos # (Auto) (0.0-0.4) X10*3/uL Baso # (Auto) (0.0-0.2) X10*3/uL Abs Immat Gran (auto) (0.00-0.03) X10*3/uL Absolute Neuts (auto) (2.0-8.3) x10*3/uL Absolute Nucleated RBC (0.0-0.012) X10*3/uL Nucleated RBC % (auto) (0.0-0.2) /100WBC D-Dimer High Sensitivty 172 NG/ML Sodium (135-145) mmol/L Potassium (3.3-5.1) mmol/L Chloride (96-108) mmol/L Carbon Dioxide (22-29) mmol/L Anion Gap (12-20) BUN (9-16) mg/dL Creatinine (0.5-1.4) mg/dL Estim Creat Clear Calc Estimated GFR Random Glucose (60-115) mg/dL Calcium (8.4-10.2) mg/dL Magnesium (1.6-2.6) mg/dL Total Bilirubin (0.0-1.0) mg/dL AST (5-31) U/L ALT (0-31) U/L Alkaline Phosphatase (39-117) U/L Total Protein (6.5-8.0) g/dL Albumin (3.5-5.0) g/dL Salicylates (15-30) mg/dL Acetaminophen (<30) mcg/mL Ethyl Alcohol 155 mg/dL COVID-19 (GARCIA) (Negative) COVID-19 Clin Com Critical Care Time Critical Care Time Critical Care Time: No Discharge Plan Discharge Clinical Impression: Shortness of breath, Alcoholic intoxication Patient Disposition: Still a Patient Prescriptions: No Action acetaminophen 325 mg Tablet 650 mg PO Q4H PRN (Reason: Pain (Scale Score 1-3)) thiamine HCl (vitamin B1) 100 mg Tablet 100 mg PO DAILY 30 Days Qty: 30 0RF hydroxyzine HCl 50 mg Tablet 50 mg PO BID PRN (Reason: Anxiety) 30 Days Qty: 60 0RF lidocaine 5 % Adhesive Patch,Medicated 1 patch transdermal DAILY 30 Days Qty: 30 0RF gabapentin 300 mg Capsule 300 mg PO TID 30 Days Qty: 90 0RF folic acid 1 mg tablet 1 tab PO DAILY 30 Days Qty: 30 0RF escitalopram oxalate 20 mg tablet 1 tab PO DAILY 30 Days Qty: 30 0RF minerals Tablet 1 tab PO QAM lidocaine 5 % ointment 1 appl topical TID PRN (Reason: moderate pain) clonidine HCl 0.1 mg tablet 0.1 mg PO BEDTIME Protocol: Hold for SBP< HOLD for SBP < : 90 quetiapine 50 mg tablet 100 mg PO BEDTIME
[2022-07-11] MEDS: LORazepam 1 MG TABLET PO (22:14)
[2022-07-11 22:15] LABS: MANUAL DIFF FLAG NO
[2022-07-11 22:17] LABS: Basophils Absolute Auto 0.1 X10*3/uL (0.0-0.2); Basophils Percent Auto 0.6 % (0-2); Eosinophils Absolute Auto 0.2 X10*3/uL (0.0-0.4); Eosinophils Percent Auto 2.2 % (0-4); Hematocrit 35.2 % (37.0-47.0); Hemoglobin 11.7 g/dl (12.0-16.0); Imm Gran Abs Auto 0.01 X10*3/uL (0.00-0.03); Imm Gran Pct Auto 0.1 % (0.0-0.4); Lymphocytes Absolute Auto 4.2 X10*3/uL (1.2-4.9); Mean Corpuscular HGB Conc 33.2 g/dl (31.0-35.0); Mean Corpuscular Hemoglobin 30.3 pg (27.0-33.0); Mean Corpuscular Volume 91.2 fL (80.0-98.0); Mean Platelet Volume 9.6 fL (9.4-12.3); Monocytes Absolute Auto 0.5 X10*3/uL (0.1-1.2); Monocytes Percent Auto 6.3 % (2-11); Neutrophils Absolute Auto 2.8 x10*3/uL (2.0-8.3); Neutrophils Percent Auto 36.8 % (45-73); Platelet Count 233 X10*3/uL (160-400); Red Blood Count 3.86 X10*6/uL (4.20-5.50); Red Cell Distribution Width 13.1 % (11.0-16.0); White Blood Count 7.7 X10*3/uL (4.8-10.8)
[2022-07-11 22:29] LABS: COVID-19 Test Negative (Negative); IDNOW Serial# 16C4AD1C
[2022-07-11 22:31] LABS: Ethanol 155 mg/dL
[2022-07-11 22:35] LABS: Acetaminophen LAB < 1 mcg/mL (<30); Alanine Aminotransferase 20 U/L (0-31); Albumin Level 3.8 g/dL (3.5-5.0); Alkaline Phosphatase 67 U/L (39-117); Anion Gap 15 (12-20); Aspartate Amino Transferase 22 U/L (5-31); Bilirubin Total 0.5 mg/dL (0.0-1.0); Blood Urea Nitrogen 15 mg/dL (9-16); Calcium 8.8 mg/dL (8.4-10.2); Carbon Dioxide 25 mmol/L (22-29); Chloride 104 mmol/L (96-108); Creatinine Clr Calc Pharmacy 76.9; Estimated Glomerular Filt Rate > 60; Glucose Random 122 mg/dL (60-115); Magnesium 1.9 mg/dL (1.6-2.6); Potassium 4.4 mmol/L (3.3-5.1); Salicylate < 5.0 mg/dL (15-30); Sodium 140 mmol/L (135-145); Total Protein 6.6 g/dL (6.5-8.0)
[2022-07-11 22:38] LABS: D Dimer High Sensitivity 172 NG/ML
[2022-07-11 23:10] VITALS: BP 68/49; PULSE 70; RESP 18; TEMP 36.7; O2SAT 93
--- NOTE | 2022-07-11 23:12 | PC.NURSE ---
patient brought into bed 22 for low BP 70s/40s. iv line placed, patient placed on diagnostic cardiac sonographer. 1 liter fluid bolus started. will continue to monitor. patient has no current complaints. answering questions appropriately. skin p/w/d
[2022-07-11 23:14] VITALS: BP 90/54
[2022-07-11 23:40] VITALS: BP 92/59; PULSE 68; RESP 14; TEMP 36.7; O2SAT 96
[2022-07-11] MEDS: 0.9 % Sodium Chloride 1,000 ML 999 ML IV (23:41)
[2022-07-11 23:51] VITALS: BP 101/61; PULSE 72; RESP 14; O2SAT 96
[2022-07-12 00:16] VITALS: BP 109/67; PULSE 69; RESP 14; O2SAT 97
--- NOTE | 2022-07-12 01:09 | PC.NURSE ---
Meds not verified at this time. Pharmacy contacted and made aware.
[2022-07-12 01:29] LABS: Troponin-I High Sensitivity < 3.5 ng/L (<3.5-17.0)
[2022-07-12] MEDS: 0.9 % Sodium Chloride 1,000 ML 999 ML IV (01:43)
--- NOTE | 2022-07-12 01:45 | PC.NURSE ---
Administered NS per MAR.
[2022-07-12 03:24] VITALS: BP 118/65; PULSE 80; RESP 14; O2SAT 97
[2022-07-12 04:25] VITALS: BP 129/78; PULSE 81; RESP 18; O2SAT 96
[2022-07-12 05:38] VITALS: BP 125/66; PULSE 73; RESP 16; O2SAT 96
[2022-07-12 06:38] VITALS: BP 124/70; PULSE 92; RESP 16; TEMP 36.9; O2SAT 96
--- NOTE | 2022-07-12 07:23 | PC.NURSE ---
report taken from anu swenson pt sleeping in stretcher, rr even/unlabored. pt looking for detox from [facility]. no obvious withdrawal s/s present. awaiting care team consult. jordana.
--- NOTE | 2022-07-12 08:44 | PHA.MEDREC ---
Pharmacy Consult ? Medication Reconciliation Pharmacy has completed the medication reconciliation. Patient had her bottles with her at time of interview. Says she hasn't taken any of her meds in about 2 weeks.
--- NOTE | 2022-07-12 09:07 | MHC.RECOVRN ---
[facility] does not have bed availability. Referral sent to [facility].
--- NOTE | 2022-07-12 10:21 | MHC.RECOVRN ---
Pt would prefer to go to [facility] as opposed to [facility]. Referral sent to [facility]. Pt reports having recently been at [facility] and deciding to leave because you're just sitting there. Pt received Vivitrol prior to dc from [facility] and reports that it takes a lot more to get a buzz. Pt reports drinking 100 proof root beer nips, 8-10 daily. Pt reports last significant period in recovery was in the 80s, has had short periods of recovery since then. Pt has been to ATS numerous times, CSS, TSS. Reports living at [facility] for a short period of time and found it helpful. Pt would like to get into sober living. Pt declines questions or concerns for t/w.
== END 2022-07-12 10:48 | disposition still patient (30) ==
PROVIDERS: Physician Assistant; Emergency Provider Emergency Medicine
DX: R06.02 Shortness of breath (principal); F10.129 Alcohol abuse with intoxication, unspecified; F33.1 Major depressive disorder, recurrent, moderate; R51.9 Headache, unspecified; Y90.6 Blood alcohol level of 120-199 mg/100 ml; Z20.822 Contact with and (suspected) exposure to COVID-19; Z79.899 Other long term (current) drug therapy; Z71.41 Alcohol abuse counseling and surveillance of alcoholic
CPT/HCPCS: 36415; 70450; 71045; 80053; 80143; 80179; 82077; 83735; 84484; 85025; 85379; 87635; 93005; 96360; 96361; 99284; 99285

== ENCOUNTER 2022-07-12 17:38 | Emergency (ER) | payer OTHER, SELFPAY ==
--- NOTE | 2022-07-12 17:50 | ED.PSYCH ---
HPI - Psych General Chief Complaint: Psychiatric Symptoms Stated Complaint: CRISIS Time Seen by Provider: 07/12/22 17:42 Source: patient and EMS Mode of arrival: EMS Limitations: no limitations History of Present Illness HPI Narrative: 56-year-old female history of chronic alcohol abuse on Vivitrol, TBI, mood d/o, depression is here seeking detox for alcohol. Patient reports several weeks ago she was at [facility] for detox. She has been out on the streets for about 2 weeks now. She has been drinking 1 sleeve of nips daily. No additional substance use. Patient denies any suicidal ideations. No physical complaints Related Data Home Medications Medication Instructions Recorded Confirmed acetaminophen 325 mg tablet 650 mg PO Q4H PRN Pain (Scale 05/13/22 07/12/22 Score 1-3) clonidine HCl 0.1 mg tablet 0.1 mg PO BEDTIME 07/08/22 07/12/22 lidocaine 5 % topical ointment 1 appl topical TID PRN moderate 07/08/22 07/12/22 pain minerals 1 tab PO QAM 07/08/22 07/12/22 quetiapine 50 mg tablet 100 mg PO BEDTIME 07/08/22 07/12/22 ibuprofen 200 mg tablet 400 mg PO Q6H PRN Pain 07/12/22 07/12/22 melatonin 10 mg tablet 10 mg PO BEDTIME PRN Sleep 07/12/22 07/12/22 trazodone 50 mg tablet 50 mg PO BEDTIME PRN Sleep 07/12/22 07/12/22 Previous Rx's Medication Instructions Recorded escitalopram oxalate 20 mg tablet 1 tab PO DAILY 30 days #30 tabs 05/24/22 folic acid 1 mg tablet 1 tab PO DAILY 30 days #30 tabs 05/24/22 gabapentin 300 mg capsule 300 mg PO TID 30 days #90 caps 05/24/22 hydroxyzine HCl 50 mg tablet 50 mg PO BID PRN Anxiety 30 days 05/24/22 #60 tabs lidocaine 5 % topical patch 1 patch transdermal DAILY 30 days 05/24/22 #30 ea thiamine HCl (vitamin B1) 100 mg 100 mg PO DAILY 30 days #30 tabs 05/24/22 tablet Allergies Allergy/AdvReac Type Severity Reaction Status Date / Time No Known Allergies Allergy Verified 07/08/22 17:36 [No Known Allergies*] Review of Systems Review of Systems: Yes all other systems are reviewed and are negative Constitutional: Constitutional: Reports no additional constitutional complaints, Denies body ache(s), Denies chills, Denies fever(s), Denies headache(s) and Denies weakness Eyes: Eyes: Reports no additional eye complaints and Denies change in vision ENT: Reports system reviewed and no additional complaints, except as documented, Denies dizziness, Denies headache(s), Denies nasal congestion, Denies nasal discharge and Denies neck pain Cardiovascular: Cardiovascular: Reports no additional cardiovascular complaints, Denies chest pain, Denies leg edema and Denies dyspnea Respiratory: Respiratory: Reports no additional respiratory complaints, Denies cough and Denies dyspnea Gastrointestinal: Gastrointestinal: Reports no additional gastrointestinal complaints, Denies abdominal pain, Denies diarrhea, Denies nausea and Denies vomiting Genitourinary: Genitourinary: Reports no additional female genitourinary complaints and Denies urinary incontinence Musculoskeletal: Musculoskeletal: Reports no additional musculoskeletal complaints, Denies back pain, Denies arthralgias, Denies joint swelling, Denies neck pain, Denies numbness and Denies tingling Integumentary/Breasts: Skin/Breast: Reports system reviewed and no additional complaints, except as docu and Denies rash Neurologic: Reports system reviewed and no additional complaints, except as documented, Denies Abnormal speech present, Denies dizziness, Denies headache(s), Denies numbness, Denies tingling and Denies weakness PMFSH Past Medical History Attestation statement: The following information was validated with the patient. Source: old records reviewed and nursing notes reviewed Medical History Depression ETOH abuse Mood disorder as late effect of traumatic brain injury TBI (traumatic brain injury) Social History Social History Household Members: Other Household Members Other:: Reports has been couch surfing. Housing: Homeless Do you presently have visiting nurse or other home services: No Alcohol intake: current Patient Tobacco Use Status: Never used Tobacco e-Cigarette/Vaping Use: Never Used Second Hand Smoke Exposure: No Substance Use Type: Caffiene Advance Directives: Yes Advance Directives on File: Yes Advance Directives Date on File: 09/12/21 service: No Sexual orientation: Straight/Heterosexual Physical Exam Vital Signs: Vital Signs: Last Vital Signs Pulse 102 H 07/12/22 18:00 Resp 20 07/12/22 18:00 BP 182/85 H 07/12/22 18:00 Pulse Ox 96 07/12/22 18:00 O2 Del Method 07/12/22 18:00 BMI result Body Mass Index 32.9 Const: General: cooperative, healthy appearing, comfortable and no acute distress Orientation/consciousness: patient oriented x3 Limitations: no limitations HEENT: Head: Yes normal to inspection Ears: hearing grossly normal bilaterally General nose exam: Normal external nose present Face and sinus: Yes normal facial exam Mouth: Normal oral and palatal mucosa present Throat: Yes posterior oropharynx normal Eyes: General: appearance normal, both eyes and all related structures Pupils: Equal, round and reactive pupils present Neck: Neck: Yes normal visual inspection Chest: Chest palpation & inspection: normal inspection of the chest Resp: Effort & Inspection: normal respiratory effort Auscultation: clear to auscultation bilaterally Cardio: Rate: regular rate Rhythm: regular rhythm Peripheral pulses: Peripheral pulses 2+ throughout GI: Inspection: Yes normal to inspection Palpation (GI): Soft to palpation and nontender Auscultation: normal bowel sounds Back/Spine/Pelvis: Thoracic/Lumbar Spine: thoracic and lumbar spine normal to inspection Skin: General skin exam: no rashes or lesions noted Neuro: General: patient oriented x3, no focal motor deficits and normal sensation to monofilament Cranial nerves: Yes Equal, round and reactive pupils present Cognition (Neuro): normal cognition Speech: No Abnormal speech present Gait exam (Neuro): Normal gait present Motor exam (neuro): 5/5 motor strength present throughout Extrem: General: Yes normal to inspection Course Course Course Narrative: 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 There may be a bed available tomorrow so patient may remain in the emergency room Reevaluation(s) Reevaluation #1: [id number]-Per nursing patient eloped from the emergency department with a steady gait MDM - Psych MDM Narrative Medical decision making narrative: 56-year-old female with history of alcohol use disorder on Vivitrol here seeking detox from alcohol. Last drink just prior to arrival. No additional substances. No physical complaints. No SI or HI Will need labs, drug screen, COVID screen. parent coach will get involved with patient Nursing to monitor [facility] Medical Records Attestation: I reviewed the patient's medical records. Lab Data Attestation: I reviewed the patient's lab results. Result diagrams: 07/12/22 19:02 07/12/22 19:02 Labs: Lab Results 07/12/22 07/12/22 07/12/22 Range/Units 19:02 19:02 19:02 WBC 9.1 (4.8-10.8) X10*3/uL RBC 3.75 L (4.20-5.50) X10*6/uL Hgb 11.6 L (12.0-16.0) g/dl Hct 34.2 L (37.0-47.0) % MCV 91.2 (80.0-98.0) fL MCH 30.9 (27.0-33.0) pg MCHC 33.9 (31.0-35.0) g/dl RDW 13.2 (11.0-16.0) % Plt Count 240 (160-400) X10*3/uL MPV 9.9 (9.4-12.3) fL Immature Gran % (Auto) 0.2 (0.0-0.4) % Neut % (Auto) 39.1 L (45-73) % Lymph % (Auto) 50.4 H (20-40) % [place] % (Auto) 7.4 (2-11) % Eos % (Auto) 2.3 (0-4) % Baso % (Auto) 0.6 (0-2) % Lymph # (Auto) 4.6 (1.2-4.9) X10*3/uL [place] # (Auto) 0.7 (0.1-1.2) X10*3/uL Eos # (Auto) 0.2 (0.0-0.4) X10*3/uL Baso # (Auto) 0.1 (0.0-0.2) X10*3/uL Abs Immat Gran (auto) 0.02 (0.00-0.03) X10*3/uL Absolute Neuts (auto) 3.6 (2.0-8.3) x10*3/uL Absolute Nucleated RBC 0.000 (0.0-0.012) X10*3/uL Nucleated RBC % (auto) 0.0 (0.0-0.2) /100WBC Sodium 140 (135-145) mmol/L Potassium 3.3 D (3.3-5.1) mmol/L Chloride 107 (96-108) mmol/L Carbon Dioxide 21 L (22-29) mmol/L Anion Gap 15 (12-20) BUN 13 (9-16) mg/dL Creatinine 0.71 (0.5-1.4) mg/dL Estim Creat Clear Calc 88.8 Estimated GFR > 60 Random Glucose 115 (60-115) mg/dL Calcium 8.9 (8.4-10.2) mg/dL Total Bilirubin 0.7 (0.0-1.0) mg/dL Direct Bilirubin 0.2 (0.0-0.5) mg/dL AST 22 (5-31) U/L ALT 18 (0-31) U/L Alkaline Phosphatase 74 (39-117) U/L Total Protein 6.9 (6.5-8.0) g/dL Albumin 3.8 (3.5-5.0) g/dL Ethyl Alcohol 234 mg/dL COVID-19 (GARCIA) Negative (Negative) COVID-19 Clin Com See Note Discharge Plan Discharge Clinical Impression: Alcoholic intoxication Patient Disposition: Elopement Prescriptions: No Action acetaminophen 325 mg Tablet 650 mg PO Q4H PRN (Reason: Pain (Scale Score 1-3)) thiamine HCl (vitamin B1) 100 mg Tablet 100 mg PO DAILY 30 Days Qty: 30 0RF hydroxyzine HCl 50 mg Tablet 50 mg PO BID PRN (Reason: Anxiety) 30 Days Qty: 60 0RF lidocaine 5 % Adhesive Patch,Medicated 1 patch transdermal DAILY 30 Days Qty: 30 0RF gabapentin 300 mg Capsule 300 mg PO TID 30 Days Qty: 90 0RF folic acid 1 mg tablet 1 tab PO DAILY 30 Days Qty: 30 0RF escitalopram oxalate 20 mg tablet 1 tab PO DAILY 30 Days Qty: 30 0RF minerals Tablet 1 tab PO QAM lidocaine 5 % ointment 1 appl topical TID PRN (Reason: moderate pain) clonidine HCl 0.1 mg tablet 0.1 mg PO BEDTIME Protocol: Hold for SBP< HOLD for SBP < : 90 quetiapine 50 mg tablet 100 mg PO BEDTIME trazodone 50 mg Tablet 50 mg PO BEDTIME PRN (Reason: Sleep) ibuprofen 200 mg Tablet 400 mg PO Q6H PRN (Reason: Pain) melatonin 10 mg Tablet 10 mg PO BEDTIME PRN (Reason: Sleep) Interventions: [place]-Suicide Risk Severity Scale Last Done: 07/12/22 20:25 ED Discharge Assessment Last Done: 07/12/22 20:25 Discharge Date/Time: 07/12/22 20:27
[2022-07-12 18:00] VITALS: BP 152/99; BP 182/85; PULSE 100; PULSE 102; RESP 20; O2SAT 95; O2SAT 96; BMI 32.9
--- NOTE | 2022-07-12 18:33 | MHC.RECOVSUP ---
? Reason for consult Recovery support o Current location: ed22H o Identified substance use concern: Alcohol - Withdrawal - Seeking ATS (detox) - Support ? Intervention: o Community resources provided o Harm reduction discussion ? Plan: <del>o</del> <del>Referral</del> <del>to</del> <del>[facility]</del> <del>o</del> <del>Bed</del> <del>search</del> <del>in</del> <del>progress</del> <del>to</del> <del>o</del> <del>Follow</del> <del>up</del> <del>tomorrow</del> <del>o</del> <del>Patient</del> <del>awaiting</del> <del>crisis</del> <del>evaluation</del> o Patient to follow up with [facility] after discharge ? Additional information: Patient stated that she wants to go to detox.. stated that she would like to go [facility].. I called [facility] and they stated that at the moment they do not have any females beds. The Care team is faxing paper work to [facility] when blood work is complete for a possible placement in the morning..
[2022-07-12 19:08] LABS: MANUAL DIFF FLAG NO
[2022-07-12 19:13] LABS: Basophils Absolute Auto 0.1 X10*3/uL (0.0-0.2); Basophils Percent Auto 0.6 % (0-2); Eosinophils Absolute Auto 0.2 X10*3/uL (0.0-0.4); Eosinophils Percent Auto 2.3 % (0-4); Hematocrit 34.2 % (37.0-47.0); Hemoglobin 11.6 g/dl (12.0-16.0); Imm Gran Abs Auto 0.02 X10*3/uL (0.00-0.03); Imm Gran Pct Auto 0.2 % (0.0-0.4); Lymphocytes Absolute Auto 4.6 X10*3/uL (1.2-4.9); Lymphocytes Percent Auto 50.4 % (20-40); Mean Corpuscular HGB Conc 33.9 g/dl (31.0-35.0); Mean Corpuscular Hemoglobin 30.9 pg (27.0-33.0); Mean Corpuscular Volume 91.2 fL (80.0-98.0); Mean Platelet Volume 9.9 fL (9.4-12.3); Monocytes Absolute Auto 0.7 X10*3/uL (0.1-1.2); Monocytes Percent Auto 7.4 % (2-11); Neutrophils Absolute Auto 3.6 x10*3/uL (2.0-8.3); Neutrophils Percent Auto 39.1 % (45-73); Platelet Count 240 X10*3/uL (160-400); Red Blood Count 3.75 X10*6/uL (4.20-5.50); Red Cell Distribution Width 13.2 % (11.0-16.0); White Blood Count 9.1 X10*3/uL (4.8-10.8)
[2022-07-12 19:23] LABS: COVID-19 Test Negative (Negative)
[2022-07-12 19:28] LABS: Alanine Aminotransferase 18 U/L (0-31); Albumin Level 3.8 g/dL (3.5-5.0); Alkaline Phosphatase 74 U/L (39-117); Anion Gap 15 (12-20); Aspartate Amino Transferase 22 U/L (5-31); Bilirubin Direct 0.2 mg/dL (0.0-0.5); Bilirubin Total 0.7 mg/dL (0.0-1.0); Blood Urea Nitrogen 13 mg/dL (9-16); Calcium 8.9 mg/dL (8.4-10.2); Carbon Dioxide 21 mmol/L (22-29); Chloride 107 mmol/L (96-108); Creatinine Clr Calc Pharmacy 88.8; Estimated Glomerular Filt Rate > 60; Ethanol 234 mg/dL; Glucose Random 115 mg/dL (60-115); Potassium 3.3 mmol/L (3.3-5.1); Sodium 140 mmol/L (135-145); Total Protein 6.9 g/dL (6.5-8.0)
== END 2022-07-12 20:27 | disposition left against medical advice (07) ==
PROVIDERS: Nurse Practitioner Family; Emergency Provider Emergency Medicine
DX: F33.1 Major depressive disorder, recurrent, moderate (principal); F10.10 Alcohol abuse, uncomplicated; Y90.7 Blood alcohol level of 200-239 mg/100 ml; Z20.822 Contact with and (suspected) exposure to COVID-19; Z71.41 Alcohol abuse counseling and surveillance of alcoholic; Z79.899 Other long term (current) drug therapy
CPT/HCPCS: 36415; 80048; 80076; 82077; 85025; 87635; 99283

== ENCOUNTER 2022-07-12 20:59 | Emergency (ER) | payer OTHER, SELFPAY ==
[2022-07-12 21:09] VITALS: BP 111/63; PULSE 81; RESP 16; TEMP 36.2; O2SAT 95; BMI 33.0
--- NOTE | 2022-07-12 23:35 | ED_ITS ---
HPI - Alcohol General Chief Complaint: ETOH/Substance Use Stated Complaint: took pills ,drinking ,detox program Time Seen by Provider: 07/12/22 23:15 Source: patient Mode of arrival: ambulatory Limitations: no limitations History of Present Illness HPI narrative: 56-year-old female history of chronic alcohol abuse on Vivitrol, TBI, mood d/o, depression here seeking alcohol detox. Of note patient eloped from the emergency room several hours ago after being here for the same exact thing. Patient reports she took her nighttime medications but did take some extra dose of gabapentin. She tells me she took 7 tablets of 300 mg of gabapentin. No additional overuse of her regular medications. This was not a suicide attempt. Patient denies SI, HI, hallucinations. She did have several nips after leaving this emergency room. She has no physical complaints. Related Data Home Medications Medication Instructions Recorded Confirmed acetaminophen 325 mg tablet 650 mg PO Q4H PRN Pain (Scale 05/13/22 07/12/22 Score 1-3) clonidine HCl 0.1 mg tablet 0.1 mg PO BEDTIME 07/08/22 07/12/22 lidocaine 5 % topical ointment 1 appl topical TID PRN moderate 07/08/22 07/12/22 pain minerals 1 tab PO QAM 07/08/22 07/12/22 quetiapine 50 mg tablet 100 mg PO BEDTIME 07/08/22 07/12/22 ibuprofen 200 mg tablet 400 mg PO Q6H PRN Pain 07/12/22 07/12/22 melatonin 10 mg tablet 10 mg PO BEDTIME PRN Sleep 07/12/22 07/12/22 trazodone 50 mg tablet 50 mg PO BEDTIME PRN Sleep 07/12/22 07/12/22 Previous Rx's Medication Instructions Recorded escitalopram oxalate 20 mg tablet 1 tab PO DAILY 30 days #30 tabs 05/24/22 folic acid 1 mg tablet 1 tab PO DAILY 30 days #30 tabs 05/24/22 gabapentin 300 mg capsule 300 mg PO TID 30 days #90 caps 05/24/22 hydroxyzine HCl 50 mg tablet 50 mg PO BID PRN Anxiety 30 days 05/24/22 #60 tabs lidocaine 5 % topical patch 1 patch transdermal DAILY 30 days 05/24/22 #30 ea thiamine HCl (vitamin B1) 100 mg 100 mg PO DAILY 30 days #30 tabs 05/24/22 tablet Allergies Allergy/AdvReac Type Severity Reaction Status Date / Time No Known Allergies Allergy Verified 07/08/22 17:36 [No Known Allergies*] Review of Systems Review of Systems: Yes all other systems are reviewed and are negative Constitutional: Constitutional: Reports no additional constitutional complaints, Denies body ache(s), Denies chills, Denies fever(s), Denies headache(s) and Denies weakness Eyes: Eyes: Reports no additional eye complaints and Denies change in vision ENT: Reports system reviewed and no additional complaints, except as documented, Denies dizziness, Denies headache(s), Denies nasal congestion, Denies nasal discharge and Denies neck pain Cardiovascular: Cardiovascular: Reports no additional cardiovascular complaints, Denies chest pain, Denies leg edema and Denies dyspnea Respiratory: Respiratory: Reports no additional respiratory complaints, Denies cough and Denies dyspnea Gastrointestinal: Gastrointestinal: Reports no additional gastrointestinal co mplaints, Denies abdominal pain, Denies diarrhea, Denies nausea and Denies vomiting Genitourinary: Genitourinary: Reports no additional female genitourinary complaints and Denies urinary incontinence Musculoskeletal: Musculoskeletal: Reports no additional musculoskeletal complaints, Denies back pain, Denies arthralgias, Denies joint swelling, Denies neck pain, Denies numbness and Denies tingling Integumentary/Breasts: Skin/Breast: Reports system reviewed and no additional complaints, except as docu and Denies rash Neurologic: Reports system reviewed and no additional complaints, except as documented, Denies dizziness, Denies headache(s), Denies numbness, Denies tingling and Denies weakness Psychiatric: Psychiatric: Denies homicidal ideation and Denies suicidal ideation [facility] Past Medical History Attestation statement: The following information was validated with the patient. Source: old records reviewed and nursing notes reviewed Medical History Depression ETOH abuse Mood disorder as late effect of traumatic brain injury TBI (traumatic brain injury) Social History Social History Household Members: Other Household Members Other:: Reports has been couch surfing. Housing: Homeless Do you presently have visiting nurse or other home services: No Alcohol intake: current Patient Tobacco Use Status: Never used Tobacco e-Cigarette/Vaping Use: Never Used Second Hand Smoke Exposure: No Substance Use Type: Caffiene Advance Directives: Yes Advance Directives on File: Yes Advance Directives Date on File: 05/06/21 service: No Sexual orientation: Straight/Heterosexual Physical Exam ED Vital Signs: Vital Signs - 24 hr 07/12/22 21:09 07/13/22 00:24 Temperature 97.2 F 97.9 F Pulse Rate 81 75 Respiratory Rate 16 18 Blood Pressure 111/63 106/49 L Pulse Oximetry 95 91 L Oxygen Delivery Method Room Air Room Air BMI result Body Mass Index 33.0 vss Appearance: Alert.? Oriented X3.? No acute distress.? No diaphoresis. Head: Normocephalic, atraumatic, no step-offs or deformities Eyes: Pupils equal, round and reactive to light.?No tongue fasciculations Neck: Normal inspection.? Neck supple.? CVS: Normal heart rate and rhythm.? Pulses normal.? Respiratory: No respiratory distress.? Breath sounds normal.? Abdomen: Soft and nontender.? Skin: Skin warm and dry.? Normal skin color.? Normal skin turgor.? Extremities: No lower extremity edema.? No calf ttp. 5/5 strength to bilateral upper and lower extremities. No resting tremors. Neuro: Oriented X 3.? No motor deficit.? No sensory deficit. CN 2-12 intact Neuro Cranial nerves: Yes CN's II-XII intact bilaterally MDM - Alcohol MDM Narrative Medical decision making narrative: 56-year-old female with history of alcohol use disorder on Vivitrol here seeking detox from alcohol.? Last drink just prior to arrival.? No additional substances.? No physical complaints. No SI or HI Will need labs, drug screen, COVID screen.? horse riding coach or instructor will get involved with patient Nursing to monitor CIWAs Placed in physician observation pending disposition Medical Records Attestation: I reviewed the patient's medical records. Lab Data Attestation: I reviewed the patient's lab results. Result diagrams: 07/13/22 00:21 07/13/22 00:21 Labs: Lab Results 07/13/22 07/13/22 07/13/22 Range/Units 00:21 00:21 00:21 WBC 6.1 (4.8-10.8) X10*3/uL RBC 3.59 L (4.20-5.50) X10*6/uL Hgb 11.1 L (12.0-16.0) g/dl Hct 32.9 L (37.0-47.0) % MCV 91.6 (80.0-98.0) fL MCH 30.9 (27.0-33.0) pg MCHC 33.7 (31.0-35.0) g/dl RDW 13.2 (11.0-16.0) % Plt Count 213 (160-400) X10*3/uL MPV 9.8 (9.4-12.3) fL Immature Gran % (Auto) 0.2 (0.0-0.4) % Neut % (Auto) 36.8 L (45-73) % Lymph % (Auto) 51.1 H (20-40) % [place] % (Auto) 7.8 (2-11) % Eos % (Auto) 3.4 (0-4) % Baso % (Auto) 0.7 (0-2) % Lymph # (Auto) 3.1 (1.2-4.9) X10*3/uL [place] # (Auto) 0.5 (0.1-1.2) X10*3/uL Eos # (Auto) 0.2 (0.0-0.4) X10*3/uL Baso # (Auto) 0.0 (0.0-0.2) X10*3/uL Abs Immat Gran (auto) 0.01 (0.00-0.03) X10*3/uL Absolute Neuts (auto) 2.3 (2.0-8.3) x10*3/uL Absolute Nucleated RBC 0.000 (0.0-0.012) X10*3/uL Nucleated RBC % (auto) 0.0 (0.0-0.2) /100WBC Sodium 144 (135-145) mmol/L Potassium 3.5 (3.3-5.1) mmol/L Chloride 108 (96-108) mmol/L Carbon Dioxide 22 (22-29) mmol/L Anion Gap 18 (12-20) BUN 13 (9-16) mg/dL Creatinine 0.69 (0.5-1.4) mg/dL Estim Creat Clear Calc 84.7 Estimated GFR > 60 Random Glucose 134 H (60-115) mg/dL Calcium 8.8 (8.4-10.2) mg/dL Total Bilirubin 0.2 (0.0-1.0) mg/dL Direct Bilirubin < 0.2 (0.0-0.5) mg/dL AST 22 (5-31) U/L ALT 19 (0-31) U/L Alkaline Phosphatase 73 (39-117) U/L Total Protein 6.5 (6.5-8.0) g/dL Albumin 3.6 (3.5-5.0) g/dL Salicylates < 5.0 L (15-30) mg/dL Acetaminophen < 1 (<30) mcg/mL Ethyl Alcohol 103 mg/dL COVID-19 (GARCIA) (Negative) COVID-19 Clin Com 07/13/22 Range/Units 00:21 WBC (4.8-10.8) X10*3/uL RBC (4.20-5.50) X10*6/uL Hgb (12.0-16.0) g/dl Hct (37.0-47.0) % MCV (80.0-98.0) fL MCH (27.0-33.0) pg MCHC (31.0-35.0) g/dl RDW (11.0-16.0) % Plt Count (160-400) X10*3/uL MPV (9.4-12.3) fL Immature Gran % (Auto) (0.0-0.4) % Neut % (Auto) (45-73) % Lymph % (Auto) (20-40) % [place] % (Auto) (2-11) % Eos % (Auto) (0-4) % Baso % (Auto) (0-2) % Lymph # (Auto) (1.2-4.9) X10*3/uL [place] # (Auto) (0.1-1.2) X10*3/uL Eos # (Auto) (0.0-0.4) X10*3/uL Baso # (Auto) (0.0-0.2) X10*3/uL Abs Immat Gran (auto) (0.00-0.03) X10*3/uL Absolute Neuts (auto) (2.0-8.3) x10*3/uL Absolute Nucleated RBC (0.0-0.012) X10*3/uL Nucleated RBC % (auto) (0.0-0.2) /100WBC Sodium (135-145) mmol/L Potassium (3.3-5.1) mmol/L Chloride (96-108) mmol/L Carbon Dioxide (22-29) mmol/L Anion Gap (12-20) BUN (9-16) mg/dL Creatinine (0.5-1.4) mg/dL Estim Creat Clear Calc Estimated GFR Random Glucose (60-115) mg/dL Calcium (8.4-10.2) mg/dL Total Bilirubin (0.0-1.0) mg/dL Direct Bilirubin (0.0-0.5) mg/dL AST (5-31) U/L ALT (0-31) U/L Alkaline Phosphatase (39-117) U/L Total Protein (6.5-8.0) g/dL Albumin (3.5-5.0) g/dL Salicylates (15-30) mg/dL Acetaminophen (<30) mcg/mL Ethyl Alcohol mg/dL COVID-19 (GARCIA) Negative (Negative) COVID-19 Clin Com See Note Discharge Plan Discharge Clinical Impression: Alcohol use disorder Patient Disposition: Still a Patient Prescriptions: No Action acetaminophen 325 mg Tablet 650 mg PO Q4H PRN (Reason: Pain (Scale Score 1-3)) thiamine HCl (vitamin B1) 100 mg Tablet 100 mg PO DAILY 30 Days Qty: 30 0RF hydroxyzine HCl 50 mg Tablet 50 mg PO BID PRN (Reason: Anxiety) 30 Days Qty: 60 0RF lidocaine 5 % Adhesive Patch,Medicated 1 patch transdermal DAILY 30 Days Qty: 30 0RF gabapentin 300 mg Capsule 300 mg PO TID 30 Days Qty: 90 0RF folic acid 1 mg tablet 1 tab PO DAILY 30 Days Qty: 30 0RF escitalopram oxalate 20 mg tablet 1 tab PO DAILY 30 Days Qty: 30 0RF minerals Tablet 1 tab PO QAM lidocaine 5 % ointment 1 appl topical TID PRN (Reason: moderate pain) clonidine HCl 0.1 mg tablet 0.1 mg PO BEDTIME Protocol: Hold for SBP< HOLD for SBP < : 90 quetiapine 50 mg tablet 100 mg PO BEDTIME trazodone 50 mg Tablet 50 mg PO BEDTIME PRN (Reason: Sleep) ibuprofen 200 mg Tablet 400 mg PO Q6H PRN (Reason: Pain) melatonin 10 mg Tablet 10 mg PO BEDTIME PRN (Reason: Sleep)
[2022-07-13] VITALS (7 sets, daily range): BP systolic 106–137; BP diastolic 49–74; PULSE 75–96; RESP 16–18; TEMP 36.1–37; O2SAT 91–97
[2022-07-13 00:32] LABS: MANUAL DIFF FLAG NO
[2022-07-13 00:34] LABS: Basophils Percent Auto 0.7 % (0-2); Eosinophils Absolute Auto 0.2 X10*3/uL (0.0-0.4); Eosinophils Percent Auto 3.4 % (0-4); Hematocrit 32.9 % (37.0-47.0); Hemoglobin 11.1 g/dl (12.0-16.0); Imm Gran Abs Auto 0.01 X10*3/uL (0.00-0.03); Imm Gran Pct Auto 0.2 % (0.0-0.4); Lymphocytes Absolute Auto 3.1 X10*3/uL (1.2-4.9); Lymphocytes Percent Auto 51.1 % (20-40); Mean Corpuscular HGB Conc 33.7 g/dl (31.0-35.0); Mean Corpuscular Hemoglobin 30.9 pg (27.0-33.0); Mean Corpuscular Volume 91.6 fL (80.0-98.0); Mean Platelet Volume 9.8 fL (9.4-12.3); Monocytes Absolute Auto 0.5 X10*3/uL (0.1-1.2); Monocytes Percent Auto 7.8 % (2-11); Neutrophils Absolute Auto 2.3 x10*3/uL (2.0-8.3); Neutrophils Percent Auto 36.8 % (45-73); Platelet Count 213 X10*3/uL (160-400); Red Blood Count 3.59 X10*6/uL (4.20-5.50); Red Cell Distribution Width 13.2 % (11.0-16.0); White Blood Count 6.1 X10*3/uL (4.8-10.8)
[2022-07-13 00:47] LABS: COVID-19 Test Negative (Negative)
[2022-07-13 00:50] LABS: Ethanol 103 mg/dL
[2022-07-13 00:53] LABS: Acetaminophen LAB < 1 mcg/mL (<30); Alanine Aminotransferase 19 U/L (0-31); Albumin Level 3.6 g/dL (3.5-5.0); Alkaline Phosphatase 73 U/L (39-117); Anion Gap 18 (12-20); Aspartate Amino Transferase 22 U/L (5-31); Bilirubin Direct < 0.2 mg/dL (0.0-0.5); Bilirubin Total 0.2 mg/dL (0.0-1.0); Blood Urea Nitrogen 13 mg/dL (9-16); Calcium 8.8 mg/dL (8.4-10.2); Carbon Dioxide 22 mmol/L (22-29); Chloride 108 mmol/L (96-108); Creatinine Clr Calc Pharmacy 84.7; Estimated Glomerular Filt Rate > 60; Glucose Random 134 mg/dL (60-115); Potassium 3.5 mmol/L (3.3-5.1); Salicylate < 5.0 mg/dL (15-30); Sodium 144 mmol/L (135-145); Total Protein 6.5 g/dL (6.5-8.0)
[2022-07-13 04:10] LABS: Appearance Urine Clear; Color Urine Yellow; Glucose Urine UA Negative (Negative); Leukocyte Esterase Urine Trace (Negative); Nitrite Urine Positive (Negative); PH 5.5 (5.0-9.0); Specific Gravity - Urine 1.025 (1.005-1.025); UMIC TRIGGER UACC YES; Urine Blood Negative (Negative); Urine Ketones Trace mg/dL (Negative); Urine Protein Negative (Neg-Trace)
[2022-07-13 04:15] LABS: Bacteria Urine 4+ (None Seen); Hyaline Casts Urine 0-2 /LPF (0-2); RBC Urine 0-2 /HPF (0-2); Squamous Epithelial Cell Urine 0-2 /HPF (0-2); UACC Culture Trigger YES
[2022-07-13 04:22] LABS: Amphetamine Screen Urine Not Detected (Not Detect); Barbiturates, Urine Not Detected (Not Detect); Benzodiazepines Screen Urine Not Detected (Not Detect); Cannabinoid Screen Urine Not Detected (Not Detect); Cocaine Screen Urine Not Detected (Not Detect); Fentanyl, urine POSITIVE (Not Detect); Opiate Screen Urine Not Detected (Not Detect); Phencyclidine Screen Urine Not Detected (Not Detect)
[2022-07-13] MEDS: LORazepam 1 MG TABLET 2 MG PO ×4 (04:29→17:13)
--- NOTE | 2022-07-13 08:54 | PC.NURSE ---
pt alert and oriented, skin pwd, respirations even and unlabored, pt reports having a headache pain at 9/10, reports feeling a little less anxious since ativan pt reports being a daily drinker and last drink was on Friday morning, pt drinks about 10 nips per day. pt want to get help and go to detox pt reports taking extra pills of gabapantin, trazadone and clonidine in the purpose to take a nap i was feeling like crap, to put me out pt currently denies si/hi all her belongings at beside, the medications taken from the pt and put in locker for safe keepings and security called for a belongings search and change room attendant
[2022-07-13] MEDS: Sulfamethox/Trimeth 800/160 TABLET 1 TAB PO (09:23)
--- NOTE | 2022-07-13 10:06 | PC.NURSE ---
patient sleeping, woke to verbal stimulus, vss, pt c/o 04/03 low back pain states she also had diarrhea when she went to bathroom, call nava within reach, will continue to monitor
== END 2022-07-13 17:47 | disposition home or self-care (01) ==
PROVIDERS: Internal Medicine; Nurse Practitioner Family; Emergency Provider Emergency Medicine Emergency Medical Services; PCP Hospitalist
DX: F10.129 Alcohol abuse with intoxication, unspecified (principal); F33.1 Major depressive disorder, recurrent, moderate; Y90.5 Blood alcohol level of 100-119 mg/100 ml; Z20.822 Contact with and (suspected) exposure to COVID-19; Z79.899 Other long term (current) drug therapy
CPT/HCPCS: 36415; 80048; 80076; 80143; 80179; 80307; 81001; 82077; 85025; 87086; 87088; 87186; 87635; 99285

== ENCOUNTER 2022-07-28 14:04 | Emergency (ER) | payer OTHER, SELFPAY ==
[2022-07-28 14:19] VITALS: BP 133/70; BP 151/97; PULSE 101; PULSE 94; RESP 20; TEMP 36.6; O2SAT 92; O2SAT 95; BMI 34.5
[2022-07-28 14:56] LABS: Appearance Urine Clear; Color Urine Yellow; Glucose Urine UA Negative (Negative); Leukocyte Esterase Urine Negative (Negative); Nitrite Urine Negative (Negative); Specific Gravity - Urine <= 1.005 (1.005-1.025); Urine Blood Negative (Negative); Urine Ketones Negative (Negative); Urine Protein Negative (Neg-Trace)
[2022-07-28 15:03] LABS: Amphetamine Screen Urine Not Detected (Not Detect); Barbiturates, Urine Not Detected (Not Detect); Benzodiazepines Screen Urine POSITIVE (Not Detect); COVID-19 Test Negative (Negative); Cannabinoid Screen Urine Not Detected (Not Detect); Cocaine Screen Urine Not Detected (Not Detect); Fentanyl, urine Not Detected (Not Detect); IDNOW Serial# 16C4AD1C; Opiate Screen Urine Not Detected (Not Detect); Phencyclidine Screen Urine Not Detected (Not Detect)
[2022-07-28 15:36] LABS: MANUAL DIFF FLAG NO
[2022-07-28 15:38] LABS: Basophils Absolute Auto 0.1 X10*3/uL (0.0-0.2); Basophils Percent Auto 0.7 % (0-2); Eosinophils Absolute Auto 0.1 X10*3/uL (0.0-0.4); Eosinophils Percent Auto 1.2 % (0-4); Hematocrit 40.7 % (37.0-47.0); Hemoglobin 13.5 g/dl (12.0-16.0); Imm Gran Abs Auto 0.01 X10*3/uL (0.00-0.03); Imm Gran Pct Auto 0.1 % (0.0-0.4); Lymphocytes Absolute Auto 3.4 X10*3/uL (1.2-4.9); Lymphocytes Percent Auto 34.4 % (20-40); Mean Corpuscular HGB Conc 33.2 g/dl (31.0-35.0); Mean Corpuscular Hemoglobin 30.1 pg (27.0-33.0); Mean Corpuscular Volume 90.8 fL (80.0-98.0); Mean Platelet Volume 9.1 fL (9.4-12.3); Monocytes Absolute Auto 0.5 X10*3/uL (0.1-1.2); Monocytes Percent Auto 5.1 % (2-11); Neutrophils Absolute Auto 5.7 x10*3/uL (2.0-8.3); Neutrophils Percent Auto 58.5 % (45-73); Platelet Count 427 X10*3/uL (160-400); Red Blood Count 4.48 X10*6/uL (4.20-5.50); Red Cell Distribution Width 13.4 % (11.0-16.0); White Blood Count 9.8 X10*3/uL (4.8-10.8)
[2022-07-28 15:43] LABS: Prothrombin Time 11.4 SEC (10.0-13.1)
--- NOTE | 2022-07-28 15:55 | ED.PSYCH ---
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 She reports she stopped drinking while she was in the psychiatric rehabilitation although when she was discharged she was unable to find a detox while she was here therefore she started drinking. She reports that she drinks 6 sips of vodka daily. She last drank alcohol this morning. She denies any drug usage. She denies any HI/auditory visualization hallucinations or any other symptoms complaints or concerns at this time. MD complaint: suicidal ideation, feels depressed, anxiety, substance abuse and alcohol abuse Onset (ago): day(s) (For the past few days worse today) Duration: constant History of same: Yes Relieving factors: none Exacerbating factors: alcohol Context: recent alcohol abuse Associated psychiatric symptoms: depression, suicidal ideation and racing thoughts Associated symptoms: denies other symptoms Treatments prior to arrival: none If self harm: admits thoughts of self harm Related Data Home Medications Medication Instructions Recorded Confirmed minerals 1 tab PO QAM 07/08/22 07/28/22 quetiapine 50 mg tablet 150 mg PO BEDTIME 07/08/22 07/28/22 trazodone 50 mg tablet 50 mg PO BEDTIME PRN Sleep 07/12/22 07/28/22 escitalopram oxalate 20 mg tablet 1 tab PO DAILY 07/28/22 07/28/22 Previous Rx's Medication Instructions Recorded folic acid 1 mg tablet 1 tab PO DAILY 30 days #30 tabs 05/24/22 gabapentin 300 mg capsule 300 mg PO TID 30 days #90 caps 05/24/22 hydroxyzine HCl 50 mg tablet 50 mg PO BID PRN Anxiety 30 days 05/24/22 #60 tabs lidocaine 5 % topical patch 1 patch transdermal DAILY 30 days 05/24/22 #30 ea thiamine HCl (vitamin B1) 100 mg 100 mg PO DAILY 30 days #30 tabs 05/24/22 tablet Allergies Allergy/AdvReac Type Severity Reaction Status Date / Time No Known Allergies Allergy Verified 07/08/22 17:36 [No Known Allergies*] Review of Systems Review of Systems: Constitutional : No Fever, No Chills ENT/Mouth : No Ear Pain, No Nasal Congestion, No sore throat Eyes: No Eye Pain, No Swelling, No Redness Cardiovascular : No Chest Pain, No SOB Respiratory : No Cough, No Sputum, No Dyspnea Gastrointestinal : No ingestions, No Nausea, No Vomiting, No Diarrhea, No Hematochezia, No Melena Genitourinary : No Dysuria, No Urinary Frequency, No Hematuria Musculoskeletal : No Myalgias Skin : No Skin Lesions, No rash Neuro : No Weakness, No Numbness, No Paresthesias, No Dizziness, No Headache Psych : + Anxiety, + Depression, + SI, + thoughts of self injury, No HI, No AVH, Heme/Lymph: No Lymphadenopathy Endocrine : No Polyuria, No Polydipsia Yes all other systems are reviewed and are negative [facility] Past Medical History Attestation statement: The following information was validated with the patient. Source: old records reviewed and nursing notes reviewed Medical History Depression ETOH abuse Mood disorder as late effect of traumatic brain injury TBI (traumatic brain injury) Social History Social History Household Members: Other Household Members Other:: Reports has been Diarize surfing. Housing: Homeless Do you presently have visiting nurse or other home services: No Alcohol intake: current Alcohol intake frequency: 3 or more drinks per day Patient Tobacco Use Status: Never used Tobacco e-Cigarette/Vaping Use: Never Used Second Hand Smoke Exposure: No Substance Use Type: Caffiene Advance Directives: Yes Advance Directives on File: Yes Advance Directives Date on File: 05/06/21 service: No Sexual orientation: Straight/Heterosexual Physical Exam Vital Signs: Vital Signs: Last Vital Signs Temp 97.8 F 07/28/22 14:19 Pulse 94 07/28/22 14:19 Resp 20 07/28/22 14:19 BP 133/70 07/28/22 14:19 Pulse Ox 92 07/28/22 14:19 O2 Del Method 07/28/22 14:19 BMI result Body Mass Index 34.5 vital signs have been reviewed as normal and appeared to be correct. Blood pressure normal. Heart rate normal. Respiration rate normal. Temperature normal. Oxygen saturation normal. Appearance: Alert. Oriented X3. No acute distress. Head: Normal external exam. Normocephalic. Atraumatic. No Emerson signs noted. No raccoon eyes noted Eyes: PERRLA. EOMI. Conjunctiva and sclera normal. Eyelids normal. ENT: EAC normal. TM's Normal. Pharynx normal. Uvula midline. Moist mucous membranes. No trismus noted. No drooling noted. No muffled voice noted. Neck: Normal inspection. Neck supple. FROM. No adenopathy. Thyroid Normal. No meningeal signs. No neck mass noted. CVS: Normal heart rate and rhythm. Heart sound normal. No murmurs noted. Pulses normal throughout. Respiratory: No respiratory distress. Painless inspiration. Breath sounds normal. No wheezes/rales/rhonchi noted. Chest nontender. No accessory muscle usage noted or decreased air movement noted. Abdomen: Soft and nontender. Bowel sounds normal in all 4 quadrants. No distention noted. No organomegaly noted. No visible injury noted. Back: No CVA tenderness. Full range of motion noted. Skin: Skin warm and dry. Normal skin color. Normal skin turgor. No rashes/lesions/lacerations noted. Extremities: No lower extremity edema. Extremities exhibit normal range of motion. Extremities nontender. Neuro: Oriented X 3. No motor deficit. No sensory deficit. Reflexes normal. CN's II-XII intact bilaterally? Psych: Appearance grossly normal, well-kept, mental status normal, speech and movement normal, speech clear, patient appears very sad and anxious along with depressed. Is cooperative. Normal thought process. Normal thought content. Normal good insight. Judgment good. 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 She reports she stopped drinking while she was in the psychiatric rehabilitation although when she was discharged she was unable to find a detox while she was here therefore she started drinking. She reports that she drinks 6 sips of vodka daily. She last drank alcohol this morning. She denies any drug usage. She denies any HI/auditory visualization hallucinations or any other symptoms complaints or concerns at this time. Plan: Will obtain labs, EKG for medical clearance, UA, urine drug screen. Assess CIWA score. And re-evaluate. Reevaluation(s) Reevaluation #1: Labs obtained reviewed - patient platelet count 427. - BUN 17. - random glucose 123. - alcohol level 215 although patient is clinically sober - otherwise all other labs are within normal limits. UA within normal limits no evidence of UTI - patient positive for benzos - Patient negative for COVID Patient medically cleared at this time and placed in Physician observation because the patient is more time to evaluate by BHN. Will continue to monitor. Time: 16:15 Reevaluation #2: Patient denies any SI/HI/auditory visual hallucinations at this time.. Reports that she does not want to go to a program anymore she has outpatient providers that she can follow-up with. She was evaluated by N. They are deciding that she should be discharged. I am agreeable to this. Therefore patient will be discharged at this time. Time: 17:57 Medications Administered Generic Name Dose Route Start Last Admin Trade Name Freq PRN Reason Stop Dose Admin Escitalopram Oxalate 20 mg 07/28/22 15:30 07/28/22 15:31 Escitalopram Oxalate 20 Mg Tablet PO Not Given DAILY MYRA Folic Acid 1 mg 07/28/22 15:30 07/28/22 15:31 Folic Acid 1 Mg Tablet PO Not Given DAILY MYRA Gabapentin 300 mg 07/28/22 15:30 07/28/22 15:31 Gabapentin 300 Mg Capsule PO Not Given TID MYRA Lorazepam 2 mg 07/28/22 15:54 07/28/22 16:02 Lorazepam 1 Mg Tablet PO 2 mg Q6H PRN Administration anxiety/etoh Multivitamins/Vitamin C 1 tab 07/28/22 15:36 07/28/22 15:40 Multivitamin Tablet PO Not Given DAILY MYRA Thiamine HCl 100 mg 07/28/22 15:30 07/28/22 15:32 Thiamine Hcl 100 Mg Tablet PO Not Given DAILY MYRA Discontinued Medications Generic Name Dose Route Start Last Admin Trade Name Freq PRN Reason Stop Dose Admin Non-Formulary Medication 1 patch 07/28/22 15:30 07/28/22 15:32 Lidocaine TRANSDERMA Not Given DAILY [facility] - Psych Medical Records Attestation: I reviewed the patient's medical records. Lab Data Attestation: I reviewed the patient's lab results. Result diagrams: 07/28/22 15:32 07/28/22 15:32 Labs: Lab Results 07/28/22 07/28/22 07/28/22 Range/Units 14:41 14:41 14:41 WBC (4.8-10.8) X10*3/uL RBC (4.20-5.50) X10*6/uL Hgb (12.0-16.0) g/dl Hct (37.0-47.0) % MCV (80.0-98.0) fL MCH (27.0-33.0) pg MCHC (31.0-35.0) g/dl RDW (11.0-16.0) % Plt Count (160-400) X10*3/uL MPV (9.4-12.3) fL Immature Gran % (Auto) (0.0-0.4) % Neut % (Auto) (45-73) % Lymph % (Auto) (20-40) % [place] % (Auto) (2-11) % Eos % (Auto) (0-4) % Baso % (Auto) (0-2) % Lymph # (Auto) (1.2-4.9) X10*3/uL [place] # (Auto) (0.1-1.2) X10*3/uL Eos # (Auto) (0.0-0.4) X10*3/uL Baso # (Auto) (0.0-0.2) X10*3/uL Abs Immat Gran (auto) (0.00-0.03) X10*3/uL Absolute Neuts (auto) (2.0-8.3) x10*3/uL Absolute Nucleated RBC (0.0-0.012) X10*3/uL Nucleated RBC % (auto) (0.0-0.2) /100WBC PT (10.0-13.1) SEC INR (0.9-1.1) Sodium (135-145) mmol/L Potassium (3.3-5.1) mmol/L Chloride (96-108) mmol/L Carbon Dioxide (22-29) mmol/L Anion Gap (12-20) BUN (9-16) mg/dL Creatinine (0.5-1.4) mg/dL Estim Creat Clear Calc Estimated GFR Random Glucose (60-115) mg/dL Calcium (8.4-10.2) mg/dL Magnesium (1.6-2.6) mg/dL Total Bilirubin (0.0-1.0) mg/dL AST (5-31) U/L ALT (0-31) U/L Alkaline Phosphatase (39-117) U/L Total Protein (6.5-8.0) g/dL Albumin (3.5-5.0) g/dL Lipase (8-78) U/L Urine Color Yellow Urine Appearance Clear Urine pH 6.0 (5.0-9.0) Ur Specific [place] <= 1.005 (1.005-1.025) Urine Protein Negative (Neg-Trace) mg/dL Urine Glucose (UA) Negative (Negative) mg/dL Urine Ketones Negative (Negative) mg/dL Urine Blood Negative (Negative) Urine Nitrite Negative (Negative) Ur Leukocyte Esterase Negative (Negative) Urine Opiates Screen Not Detected (Not Detect) Urine Fentanyl Screen Not Detected (Not Detect) Ur Barbiturates Screen Not Detected (Not Detect) Ur Phencyclidine Scrn Not Detected (Not Detect) Ur Amphetamines Screen Not Detected (Not Detect) U Benzodiazepines Scrn POSITIVE H (Not Detect) Urine Cocaine Screen Not Detected (Not Detect) U Marijuana (THC) Screen Not Detected (Not Detect) Ethyl Alcohol mg/dL COVID-19 (GARCIA) Negative (Negative) COVID-19 Clin Com See Note 07/28/22 07/28/22 07/28/22 Range/Units 15:32 15:32 15:32 WBC 9.8 (4.8-10.8) X10*3/uL RBC 4.48 D (4.20-5.50) X10*6/uL Hgb 13.5 D (12.0-16.0) g/dl Hct 40.7 D (37.0-47.0) % MCV 90.8 (80.0-98.0) fL MCH 30.1 (27.0-33.0) pg MCHC 33.2 (31.0-35.0) g/dl RDW 13.4 (11.0-16.0) % Plt Count 427 H D (160-400) X10*3/uL MPV 9.1 L (9.4-12.3) fL Immature Gran % (Auto) 0.1 (0.0-0.4) % Neut % (Auto) 58.5 (45-73) % Lymph % (Auto) 34.4 (20-40) % [place] % (Auto) 5.1 (2-11) % Eos % (Auto) 1.2 (0-4) % Baso % (Auto) 0.7 (0-2) % Lymph # (Auto) 3.4 (1.2-4.9) X10*3/uL [place] # (Auto) 0.5 (0.1-1.2) X10*3/uL Eos # (Auto) 0.1 (0.0-0.4) X10*3/uL Baso # (Auto) 0.1 (0.0-0.2) X10*3/uL Abs Immat Gran (auto) 0.01 (0.00-0.03) X10*3/uL Absolute Neuts (auto) 5.7 (2.0-8.3) x10*3/uL Absolute Nucleated RBC 0.000 (0.0-0.012) X10*3/uL Nucleated RBC % (auto) 0.0 (0.0-0.2) /100WBC PT 11.4 (10.0-13.1) SEC INR 1.0 (0.9-1.1) Sodium 144 (135-145) mmol/L Potassium 3.7 (3.3-5.1) mmol/L Chloride 104 (96-108) mmol/L Carbon Dioxide 24 (22-29) mmol/L Anion Gap 20 (12-20) BUN 17 H (9-16) mg/dL Creatinine 0.80 (0.5-1.4) mg/dL Estim Creat Clear Calc 74.8 Estimated GFR > 60 Random Glucose 123 H (60-115) mg/dL Calcium 9.5 D (8.4-10.2) mg/dL Magnesium 2.0 (1.6-2.6) mg/dL Total Bilirubin 0.5 (0.0-1.0) mg/dL AST 18 (5-31) U/L ALT 18 (0-31) U/L Alkaline Phosphatase 79 (39-117) U/L Total Protein 7.6 (6.5-8.0) g/dL Albumin 4.4 D (3.5-5.0) g/dL Lipase 23 (8-78) U/L Urine Color Urine Appearance Urine pH (5.0-9.0) Ur Specific [place] (1.005-1.025) Urine Protein (Neg-Trace) mg/dL Urine Glucose (UA) (Negative) mg/dL Urine Ketones (Negative) mg/dL Urine Blood (Negative) Urine Nitrite (Negative) Ur Leukocyte Esterase (Negative) Urine Opiates Screen (Not Detect) Urine Fentanyl Screen (Not Detect) Ur Barbiturates Screen (Not Detect) Ur Phencyclidine Scrn (Not Detect) Ur Amphetamines Screen (Not Detect) U Benzodiazepines Scrn (Not Detect) Urine Cocaine Screen (Not Detect) U Marijuana (THC) Screen (Not Detect) Ethyl Alcohol 215 mg/dL COVID-19 (GARCIA) (Negative) COVID-19 Clin Com Discharge Plan Discharge Clinical Impression: Depression, Alcohol use, Acute anxiety Patient Disposition: Home, Self-Care Instructions: Alcohol Intoxication (ED), Anxiety (ED) Prescriptions: No Action thiamine HCl (vitamin B1) 100 mg Tablet 100 mg PO DAILY 30 Days Qty: 30 0RF hydroxyzine HCl 50 mg Tablet 50 mg PO BID PRN (Reason: Anxiety) 30 Days Qty: 60 0RF lidocaine 5 % Adhesive Patch,Medicated 1 patch transdermal DAILY 30 Days Qty: 30 0RF gabapentin 300 mg Capsule 300 mg PO TID 30 Days Qty: 90 0RF folic acid 1 mg tablet 1 tab PO DAILY 30 Days Qty: 30 0RF minerals Tablet 1 tab PO QAM quetiapine 50 mg tablet 150 mg PO BEDTIME trazodone 50 mg Tablet 50 mg PO BEDTIME PRN (Reason: Sleep) escitalopram oxalate 20 mg tablet 1 tab PO DAILY Referrals: Physician,Unknown J [Primary Care Provider] - 2 days (your pcp) Interventions: [place]-Suicide Risk Severity Scale Last Done: 07/28/22 14:19
[2022-07-28] MEDS: LORazepam 1 MG TABLET 2 MG PO (16:02)
--- NOTE | 2022-07-28 16:08 | MHC.CARE ---
Care Team completed smart sheet.
[2022-07-28 16:21] LABS: Alanine Aminotransferase 18 U/L (0-31); Albumin Level 4.4 g/dL (3.5-5.0); Alkaline Phosphatase 79 U/L (39-117); Anion Gap 20 (12-20); Aspartate Amino Transferase 18 U/L (5-31); Blood Urea Nitrogen 17 mg/dL (9-16); Calcium 9.5 mg/dL (8.4-10.2); Carbon Dioxide 24 mmol/L (22-29); Chloride 104 mmol/L (96-108); Creatinine Clr Calc Pharmacy 74.8; Estimated Glomerular Filt Rate > 60; Ethanol 215 mg/dL; Glucose Random 123 mg/dL (60-115); Lipase 23 U/L (8-78); Potassium 3.7 mmol/L (3.3-5.1); Sodium 144 mmol/L (135-145); Total Protein 7.6 g/dL (6.5-8.0)
[2022-07-28 16:34] LABS: Bilirubin Total 0.5 mg/dL (0.0-1.0)
== END 2022-07-28 18:04 | disposition home or self-care (01) ==
PROVIDERS: Physician Assistant Medical; Emergency Provider Emergency Medicine
DX: F33.1 Major depressive disorder, recurrent, moderate (principal); F41.1 Generalized anxiety disorder; F43.0 Acute stress reaction; F10.90 Alcohol use, unspecified, uncomplicated; Y90.7 Blood alcohol level of 200-239 mg/100 ml; Z20.822 Contact with and (suspected) exposure to COVID-19; Z79.899 Other long term (current) drug therapy
CPT/HCPCS: 36415; 80053; 80307; 81003; 82077; 83690; 83735; 85025; 85610; 87635; 99284

== ENCOUNTER 2022-07-29 11:44 | Emergency (ER) | payer OTHER, SELFPAY ==
[2022-07-29 12:34] VITALS: BP 116/71; PULSE 79; RESP 16; TEMP 36.5; O2SAT 97; BMI 34.3
[2022-07-29 12:46] VITALS: RESP 16; TEMP 36.5
--- NOTE | 2022-07-29 12:46 | PC.NURSE ---
Ambulated to bathroom with 1 assist. Reports feeling lousy today, not suicidal.
--- NOTE | 2022-07-29 14:13 | ED.ALCOHOL ---
HPI - Alcohol General Chief Complaint: ETOH/Substance Use Stated Complaint: DTOH per EMS Time Seen by Provider: 07/29/22 13:54 Source: patient, EMS and RN notes reviewed History of Present Illness HPI narrative: 56 yo female presents to the ED today with EMS. States she doesn't feel good but cannot be more specific. Also has had a moderate amount of alcohol today. Additional history is not available at this time b/c of intoxication. MD complaint: alcohol intoxication Last drink: Hours (ago) and Just prior to admission Chronic alcohol use: Yes Recent trauma: No Associated symptoms: denies other symptoms Treatments prior to arrival: none Related Data Home Medications Medication Instructions Recorded Confirmed minerals 1 tab PO QAM 07/08/22 07/28/22 quetiapine 50 mg tablet 150 mg PO BEDTIME 07/08/22 07/28/22 trazodone 50 mg tablet 50 mg PO BEDTIME PRN Sleep 07/12/22 07/28/22 escitalopram oxalate 20 mg tablet 1 tab PO DAILY 07/28/22 07/28/22 Previous Rx's Medication Instructions Recorded folic acid 1 mg tablet 1 tab PO DAILY 30 days #30 tabs 05/24/22 gabapentin 300 mg capsule 300 mg PO TID 30 days #90 caps 05/24/22 hydroxyzine HCl 50 mg tablet 50 mg PO BID PRN Anxiety 30 days 05/24/22 #60 tabs lidocaine 5 % topical patch 1 patch transdermal DAILY 30 days 05/24/22 #30 ea thiamine HCl (vitamin B1) 100 mg 100 mg PO DAILY 30 days #30 tabs 05/24/22 tablet Allergies Allergy/AdvReac Type Severity Reaction Status Date / Time No Known Allergies Allergy Verified 07/08/22 17:36 [No Known Allergies*] Review of Systems Review of Systems: Constitutional:??J Constitutional: De nies chills, Denie s fatigue and head ache(s) ENT:?? No nosebleed, no s ore throat Cardiovascular:??J Cardiovascular: De nies chest pain an d Denies dyspnea Respiratory:?? Respiratory: Denie s cough and Denies wheezing Yes Unobtainable due to mental condition Neurologic: Reports Abnormal speech present PMFSH Past Medical History Medical History Depression ETOH abuse Mood disorder as late effect of traumatic brain injury TBI (traumatic brain injury) Social History Social History Household Members: Other Household Members Other:: Reports has been couch surfing. Housing: Homeless Do you presently have visiting nurse or other home services: No Alcohol intake: current Alcohol intake frequency: 3 or more drinks per day Patient Tobacco Use Status: Never used Tobacco e-Cigarette/Vaping Use: Never Used Second Hand Smoke Exposure: No Substance Use Type: Caffiene Advance Directives: Yes Advance Directives on File: Yes Advance Directives Date on File: 05/06/21 service: No Sexual orientation: Straight/Heterosexual Physical Exam ED Vital Signs: Vital Signs - 24 hr 07/29/22 12:34 07/29/22 12:46 Temperature 97.7 F 97.7 F Pulse Rate 79 Respiratory Rate 16 16 Blood Pressure 116/71 Pulse Oximetry 97 Oxygen Delivery Method Room Air BMI result Body Mass Index 34.3 Const General: no acute distress and intoxicated appearing Nutritional Appearance: average body habitus Orientation/consciousness: oriented to person and oriented to place HENMT Head: Yes normal to inspection, Yes normocephalic and Yes atraumatic Ears: external ears normal General nose exam: Normal external nose present Face and sinus: Yes normal facial exam Eyes Conjunctivae: conjunctivae normal Sclerae: sclerae normal Pupils: Equal, round and reactive pupils present EOM: EOMs intact bilaterally Resp Effort & Inspection: normal respiratory effort and no cough Cardio Rate: regular rate Rhythm: regular rhythm GI Inspection: Yes normal to inspection Back/Spine/Pelvis Cervical Spine: normal cervical lordosis and cervical ROM normal Skin General skin exam: no rashes or lesions noted, no erythema and no mottling Neuro General: oriented to person, oriented to place, moves all extremities and CN's II-XI intact bilaterally Cranial nerves: Yes Equal, round and reactive pupils present Speech: Abnormal speech present slurred Gait exam (Neuro): Normal gait present Medical Decision Making Medical Decision Making MDM Narrative: 56-year-old female intoxicated. Observe the emergency department for several hours. Patient has no physical complaints at this time, will be discharged home with family/friend Discharge Plan Discharge Clinical Impression: Alcoholic intoxication Patient Disposition: Home, Self-Care Instructions: Alcohol Intoxication (ED) Prescriptions: No Action thiamine HCl (vitamin B1) 100 mg Tablet 100 mg PO DAILY 30 Days Qty: 30 0RF hydroxyzine HCl 50 mg Tablet 50 mg PO BID PRN (Reason: Anxiety) 30 Days Qty: 60 0RF lidocaine 5 % Adhesive Patch,Medicated 1 patch transdermal DAILY 30 Days Qty: 30 0RF gabapentin 300 mg Capsule 300 mg PO TID 30 Days Qty: 90 0RF folic acid 1 mg tablet 1 tab PO DAILY 30 Days Qty: 30 0RF minerals Tablet 1 tab PO QAM quetiapine 50 mg tablet 150 mg PO BEDTIME trazodone 50 mg Tablet 50 mg PO BEDTIME PRN (Reason: Sleep) escitalopram oxalate 20 mg tablet 1 tab PO DAILY
== END 2022-07-29 17:01 | disposition home or self-care (01) ==
PROVIDERS: Emergency Provider Emergency Medicine
DX: F10.129 Alcohol abuse with intoxication, unspecified (principal); Y90.8 Blood alcohol level of 240 mg/100 ml or more; Z79.899 Other long term (current) drug therapy
CPT/HCPCS: 99282; 99284

== ENCOUNTER 2022-07-30 11:59 | Emergency (ER) | payer OTHER, SELFPAY ==
[2022-07-30 12:09] VITALS: BP 147/107; PULSE 96; RESP 16; TEMP 37.7; O2SAT 95; BMI 35.6
--- NOTE | 2022-07-30 12:18 | ED_ITS ---
HPI - General Adult General Chief complaint: ETOH/Substance Use Stated complaint: CRISIS,ETOH USE Time Seen by Provider: 07/30/22 12:16 Source: patient and EMS Mode of arrival: EMS Limitations: no limitations History of Present Illness HPI narrative: Patient is a 56 year old assigned female at with a history of alcohol abuse presenting to the emergency department today requesting alcohol detox. Patient states that she wants to be evaluated and place in alcohol detox. EMS states that the patient was found outside, in front of a bar, intoxicated. Patient denies any dizziness, lightheadedness, abdominal pain, nausea, vomiting, fever, chills, blurry vision, double vision, loss of vision, chest pain, difficulty breathing, shortness of breath, back pain, night sweats, pain with urination, increased urinary frequency, increased urinary urgency, blood in her urine or stool, syncope or a near syncopal episode, recent trauma or falls, bowel incontinence, bladder incontinence, bowel retention, bladder retention, or any other complaints at this time. Severity: mild Severity scale (1-10): 1 Relieving factors: none Exacerbating factors: none Associated symptoms: denies other symptoms Treatments prior to arrival: none Related Data Home Medications Medication Instructions Recorded Confirmed minerals 1 tab PO QAM 07/08/22 07/28/22 quetiapine 50 mg tablet 150 mg PO BEDTIME 07/08/22 07/28/22 trazodone 50 mg tablet 50 mg PO BEDTIME PRN Sleep 07/12/22 07/28/22 escitalopram oxalate 20 mg tablet 1 tab PO DAILY 07/28/22 07/28/22 Previous Rx's Medication Instructions Recorded folic acid 1 mg tablet 1 tab PO DAILY 30 days #30 tabs 05/24/22 gabapentin 300 mg capsule 300 mg PO TID 30 days #90 caps 05/24/22 hydroxyzine HCl 50 mg tablet 50 mg PO BID PRN Anxiety 30 days 05/24/22 #60 tabs lidocaine 5 % topical patch 1 patch transdermal DAILY 30 days 05/24/22 #30 ea thiamine HCl (vitamin B1) 100 mg 100 mg PO DAILY 30 days #30 tabs 05/24/22 tablet Allergies Allergy/AdvReac Type Severity Reaction Status Date / Time No Known Allergies Allergy Verified 07/08/22 17:36 [No Known Allergies*] Review of Systems Constitutional: Constitutional: Reports no additional constitutional complain ts, Denies chills, Denies fever(s) and Denies night sweats Eyes: Eyes: Reports no additional eye complaints, Denies blurry vision, Denies change in vision, Denies diplopia, Denies eye discharge, Denies loss of vision and Denies eye pain ENT: Denies dizziness Cardiovascular: Cardiovascular: Reports no additional cardiovascular complaints, Denies chest pain, Denies lightheadedness, Denies Loss of Consciousness and Denies dyspnea Respiratory: Respiratory: Reports no additional respiratory complaints and Denies dyspnea Gastrointestinal: Gastrointestinal: Reports no additional gastrointestinal complaints, Denies abdominal pain, Denies melena, Denies hematochezia, Denies change in bowel habits and Denies change in stool character Genitourinary: Genitourinary: Denies hematuria, Denies urinary frequency, Denies dysuria, Denies urinary incontinence, Denies urinary hesitancy and Denies urinary urgency Musculoskeletal: Musculoskeletal: Reports no additional musculoskeletal complaints, Denies numbness and Denies tingling Neurologic: Denies dizziness, Denies loss of vision, Denies numbness and Denies tingling Psychiatric: Psychiatric: Reports no additional psychiatric complaints Endocrine: Endocrine: Reports no additional endocrine complaints Hematologic/Lymphatic: Hematologic/Lymphatic: Reports no additional hematologic/lymphatic complaints Allergic/Immunologic: Allergic/Immunologic: Reports no additional allergic/immunologic complaints [facility] Past Medical History Attestation statement: The following information was validated with the patient. Source: old records reviewed Medical History Depression ETOH abuse Mood disorder as late effect of traumatic brain injury TBI (traumatic brain injury) Social History Social History Household Members: Other Household Members Other:: Reports has been [employer]. Housing: Homeless Do you presently have visiting nurse or other home services: No Alcohol intake: current Alcohol intake frequency: 3 or more drinks per day Patient Tobacco Use Status: Never used Tobacco e-Cigarette/Vaping Use: Never Used Second Hand Smoke Exposure: No Substance Use Type: Caffiene Advance Directives: Yes Advance Directives on File: Yes Advance Directives Date on File: 05/06/21 service: No Sexual orientation: Straight/Heterosexual Physical Exam ED Vital Signs: Vital Signs - 24 hr 07/30/22 12:09 07/30/22 14:59 Temperature 99.8 F 98.6 F Pulse Rate 96 104 H Respiratory Rate 16 20 Blood Pressure 147/107 H 125/63 Pulse Oximetry 95 97 Oxygen Delivery Method Room Air Room Air BMI result Body Mass Index 35.6 Const General: cooperative, no acute distress, alert and awake Nutritional Appearance: well nourished Orientation/consciousness: patient oriented x3 Limitations: no limitations HENMT Head: Yes normal to inspection and Yes atraumatic Ears: hearing grossly normal bilaterally and external ears normal General nose exam: Normal external nose present, no nasal discharge noted and no epistaxis Face and sinus: Yes normal facial exam, No abrasion and No laceration Mouth: Normal oral and palatal mucosa present, no drooling and no muffled voice Eyes General: appearance normal, both eyes and all related structures Periorbital: periorbital findings normal Eyelids: Yes eyelids normal Conjunctivae: conjunctivae normal Pupils: Equal, round and reactive pupils present EOM: EOMs intact bilaterally Neck Neck: Yes normal visual inspection, Yes full ROM and Yes no lymphadenopathy Chest Chest palpation & inspection: normal inspection of the chest Resp Effort & Inspection: normal respiratory effort and able to speak in complete sentences Auscultation: clear to auscultation bilaterally Cardio Rate: regular rate Rhythm: regular rhythm GI Inspection: Yes normal to inspection Neuro General: patient oriented x3 and moves all extremities Cranial nerves: Yes Equal, round and reactive pupils present Cognition (Neuro): normal cognition Motor exam (neuro): 5/5 motor strength present throughout Sensory Exam: Normal double simultaneous stimulation for sensation Coordination: [id number] test normal Extrem General: Yes normal to inspection, Yes full ROM and Yes capillary refill normal Psych Appearance: grossly normal Mental Status: mental status grossly normal Affect: normal affect Attitude: cooperative Thought process: Normal thought process present Thought content: Normal thought content present Insight: Good insight present (Psych) Medical Decision Making Medical Decision Making MDM Narrative: Patient is a 56 year old assigned female at with a history of alcohol abuse presenting to the emergency department today requesting alcohol detox. Patient's physical exam was unremarkable. Patient's blood work was unremarkable. I explained my physical exam findings as well as all test results to the patient. I answered all questions asked by the patient. Patient decided to leave before being placed in detox. Patient is of sound mind with appropriate decision making skills. I stressed the importance of the patient taking her medication as prescribed. I stressed the importance of the patient following up with her primary care provider. I stressed the importance of the patient returning to the emergency department immediately if her symptoms were to worsen or if she were to develop any dizziness, shortness of breath, difficulty breathing, chest pain, blurry vision, loss of vision, nausea, vomiting, abdominal pain, fever, chills, back pain, or any other complaints. Patient verbalized agreement and underst anding with this treatment plan and discharge. Differential Diagnoses: Differential diagnosis Differential Diagnosis: The differential diagnosis associated with the patient?s presentation includes: alcohol abuse Discharge Plan Discharge Clinical Impression: Alcohol use Patient Disposition: Home, Self-Care Instructions: Abuse of Alcohol (ED) Additional Instructions: Follow up with your primary care provider. Return to the emergency department immediately if your symptoms worsen or if you develop any dizziness, shortness of breath, difficulty breathing, chest pain, blurry vision, loss of vision, nausea, vomiting, abdominal pain, fever, chills, back pain, or any other complaints. Prescriptions: No Action thiamine HCl (vitamin B1) 100 mg Tablet 100 mg PO DAILY 30 Days Qty: 30 0RF hydroxyzine HCl 50 mg Tablet 50 mg PO BID PRN (Reason: Anxiety) 30 Days Qty: 60 0RF lidocaine 5 % Adhesive Patch,Medicated 1 patch transdermal DAILY 30 Days Qty: 30 0RF gabapentin 300 mg Capsule 300 mg PO TID 30 Days Qty: 90 0RF folic acid 1 mg tablet 1 tab PO DAILY 30 Days Qty: 30 0RF minerals Tablet 1 tab PO QAM quetiapine 50 mg tablet 150 mg PO BEDTIME trazodone 50 mg Tablet 50 mg PO BEDTIME PRN (Reason: Sleep) escitalopram oxalate 20 mg tablet 1 tab PO DAILY Referrals: Tonia Nelson MD [Primary Care Provider] - Print Language: Algerian
--- NOTE | 2022-07-30 12:46 | MHC.RECOVRN ---
Pt presented to [facility] after calling an ambulance intoxicated and distraught over recent break up with boyfriend. Pt states I don't know what to do anymore. This is enough. Pt familiar with t/w from previous consults and ATS admissions. Pt would like to go to [facility] and continue with inpatient tx. Discussed with pt the continuum of care and encouraged pt to go to [facility], [facility], etc. after ATS. Pt agreeable. Referral sent to [facility].
--- NOTE | 2022-07-30 13:43 | PC.NURSE ---
smart sheet sent
[2022-07-30 13:46] LABS: Amphetamine Screen Urine Not Detected (Not Detect); Barbiturates, Urine Not Detected (Not Detect); Benzodiazepines Screen Urine POSITIVE (Not Detect); Cannabinoid Screen Urine Not Detected (Not Detect); Cocaine Screen Urine Not Detected (Not Detect); Fentanyl, urine Not Detected (Not Detect); Opiate Screen Urine Not Detected (Not Detect); Phencyclidine Screen Urine Not Detected (Not Detect)
[2022-07-30 14:04] LABS: Basophils Absolute Auto 0.1 X10*3/uL (0.0-0.2); Basophils Percent Auto 0.7 % (0-2); Eosinophils Percent Auto 0.4 % (0-4); Hematocrit 40.3 % (37.0-47.0); Hemoglobin 13.4 g/dl (12.0-16.0); Imm Gran Abs Auto 0.02 X10*3/uL (0.00-0.03); Imm Gran Pct Auto 0.2 % (0.0-0.4); Lymphocytes Absolute Auto 3.7 X10*3/uL (1.2-4.9); Lymphocytes Percent Auto 36.5 % (20-40); Mean Corpuscular HGB Conc 33.3 g/dl (31.0-35.0); Mean Corpuscular Hemoglobin 30.3 pg (27.0-33.0); Mean Corpuscular Volume 91.2 fL (80.0-98.0); Mean Platelet Volume 8.9 fL (9.4-12.3); Monocytes Absolute Auto 0.5 X10*3/uL (0.1-1.2); Monocytes Percent Auto 4.7 % (2-11); Neutrophils Absolute Auto 5.9 x10*3/uL (2.0-8.3); Neutrophils Percent Auto 57.5 % (45-73); Platelet Count 412 X10*3/uL (160-400); Red Blood Count 4.42 X10*6/uL (4.20-5.50); Red Cell Distribution Width 13.4 % (11.0-16.0); White Blood Count 10.2 X10*3/uL (4.8-10.8)
[2022-07-30 14:23] LABS: MANUAL DIFF FLAG NO
[2022-07-30 14:31] LABS: Alanine Aminotransferase 20 U/L (0-31); Albumin Level 4.3 g/dL (3.5-5.0); Alkaline Phosphatase 79 U/L (39-117); Anion Gap 14 (12-20); Aspartate Amino Transferase 23 U/L (5-31); Bilirubin Total 0.4 mg/dL (0.0-1.0); Blood Urea Nitrogen 11 mg/dL (9-16); Calcium 9.4 mg/dL (8.4-10.2); Carbon Dioxide 30 mmol/L (22-29); Chloride 106 mmol/L (96-108); Creatinine Clr Calc Pharmacy 84.4; Estimated Glomerular Filt Rate > 60; Ethanol 263 mg/dL; Glucose Random 90 mg/dL (60-115); Potassium 3.9 mmol/L (3.3-5.1); Salicylate < 5.0 mg/dL (15-30); Sodium 146 mmol/L (135-145); Total Protein 7.5 g/dL (6.5-8.0)
--- NOTE | 2022-07-30 14:51 | MHC.RECOVRN ---
[facility] bed availability, currently reviewing pt. Pt is currently on a contract at for inappropriate racial remarks that is due to tomorrow. Leadership considering admission today.
[2022-07-30 14:59] VITALS: BP 125/63; PULSE 104; RESP 20; TEMP 37; O2SAT 97
--- NOTE | 2022-07-30 16:01 | MHC.RECOVRN ---
[facility] declined pt. Awaiting review from [facility], updated information and labs have been sent. [facility] does have bed availability.
[2022-08-01 11:55] LABS: Acetaminophen LAB < 1 mcg/mL (<30)
== END 2022-07-30 18:11 | disposition home or self-care (01) ==
PROVIDERS: Physician Assistant Medical; Emergency Provider Emergency Medicine; PCP Internal Medicine
DX: F10.120 Alcohol abuse with intoxication, uncomplicated (principal); F10.129 Alcohol abuse with intoxication, unspecified; Y90.8 Blood alcohol level of 240 mg/100 ml or more; Z79.899 Other long term (current) drug therapy
CPT/HCPCS: 80053; 80143; 80179; 80307; 82077; 85025; 99284

== ENCOUNTER 2022-07-30 21:10 | Emergency (ER) | payer OTHER, SELFPAY ==
[2022-07-30 21:22] VITALS: BP 123/58; BP 137/64; PULSE 92; RESP 18; TEMP 36.7; O2SAT 96; O2SAT 98; BMI 34.9
[2022-07-30 21:56] LABS: MANUAL DIFF FLAG NO
[2022-07-30 21:59] LABS: Basophils Absolute Auto 0.1 X10*3/uL (0.0-0.2); Basophils Percent Auto 0.9 % (0-2); Eosinophils Absolute Auto 0.1 X10*3/uL (0.0-0.4); Eosinophils Percent Auto 1.4 % (0-4); Hematocrit 41.2 % (37.0-47.0); Hemoglobin 13.7 g/dl (12.0-16.0); Imm Gran Abs Auto 0.02 X10*3/uL (0.00-0.03); Imm Gran Pct Auto 0.2 % (0.0-0.4); Lymphocytes Absolute Auto 3.6 X10*3/uL (1.2-4.9); Lymphocytes Percent Auto 42.5 % (20-40); Mean Corpuscular HGB Conc 33.3 g/dl (31.0-35.0); Mean Corpuscular Volume 90.4 fL (80.0-98.0); Monocytes Absolute Auto 0.5 X10*3/uL (0.1-1.2); Monocytes Percent Auto 5.5 % (2-11); Neutrophils Absolute Auto 4.2 x10*3/uL (2.0-8.3); Neutrophils Percent Auto 49.5 % (45-73); Platelet Count 414 X10*3/uL (160-400); Red Blood Count 4.56 X10*6/uL (4.20-5.50); Red Cell Distribution Width 13.5 % (11.0-16.0); White Blood Count 8.6 X10*3/uL (4.8-10.8)
--- NOTE | 2022-07-30 22:08 | MHC.CARE ---
Pt was seen in the ED earlier today and a detox bed was found at [facility]. Pt requested to discharge and told ED nurse that she didn't want to go to detox anymore. After discharging the CARE team was contacted by veterans' coordinator at [facility] and CARE team reached out to the patient to facilitate the phone intake and move forward with the admission. Pt did not return CARE team call and thus has lost the bed that she had.
[2022-07-30 22:20] LABS: Alanine Aminotransferase 20 U/L (0-31); Albumin Level 4.4 g/dL (3.5-5.0); Alkaline Phosphatase 80 U/L (39-117); Anion Gap 14 (12-20); Aspartate Amino Transferase 25 U/L (5-31); Bilirubin Total 0.4 mg/dL (0.0-1.0); Blood Urea Nitrogen 11 mg/dL (9-16); Calcium 9.5 mg/dL (8.4-10.2); Carbon Dioxide 29 mmol/L (22-29); Chloride 104 mmol/L (96-108); Creatinine Clr Calc Pharmacy 77.2; Estimated Glomerular Filt Rate > 60; Ethanol 257 mg/dL; Glucose Random 132 mg/dL (60-115); Magnesium 1.9 mg/dL (1.6-2.6); Potassium 3.4 mmol/L (3.3-5.1); Salicylate < 5.0 mg/dL (15-30); Sodium 144 mmol/L (135-145); Total Protein 7.6 g/dL (6.5-8.0)
[2022-07-30 22:25] LABS: Acetaminophen LAB < 1 mcg/mL (<30)
--- NOTE | 2022-07-30 22:36 | ED.GENADULT ---
HPI - General Adult General Chief complaint: ETOH/Substance Use Stated complaint: etoh Time Seen by Provider: 07/30/22 21:16 Source: patient Mode of arrival: EMS Limitations: no limitations History of Present Illness HPI narrative: 56-year-old female past per the medical history depression and alcohol use disorder presents to the emergency department with EMS today after being found frankly intoxicated by [employer]PD in front of stop and shop. Patient states that she is seeking detox. Has been in inpatient her as before however did not follow-up with outpatient treatment. Patient admits to drinking 5 alcoholic nips a day of vodka, last drink was prior to arrival. Has gone through withdrawal before. Denies SI or HI ideation. Denies auditory, visual, tactile hallucinations. Denies tobacco or drug use. No medical complaints at this time. Has seen a psychiatrist in the past, currently being treated for anxiety and depression. No reported falls or trauma. Related Data Home Medications Medication Instructions Recorded Confirmed minerals 1 tab PO QAM 07/08/22 07/28/22 quetiapine 50 mg tablet 150 mg PO BEDTIME 07/08/22 07/28/22 trazodone 50 mg tablet 50 mg PO BEDTIME PRN Sleep 07/12/22 07/28/22 escitalopram oxalate 20 mg tablet 1 tab PO DAILY 07/28/22 07/28/22 Previous Rx's Medication Instructions Recorded folic acid 1 mg tablet 1 tab PO DAILY 30 days #30 tabs 05/24/22 gabapentin 300 mg capsule 300 mg PO TID 30 days #90 caps 05/24/22 hydroxyzine HCl 50 mg tablet 50 mg PO BID PRN Anxiety 30 days 05/24/22 #60 tabs lidocaine 5 % topical patch 1 patch transdermal DAILY 30 days 05/24/22 #30 ea thiamine HCl (vitamin B1) 100 mg 100 mg PO DAILY 30 days #30 tabs 05/24/22 tablet Allergies Allergy/AdvReac Type Severity Reaction Status Date / Time No Known Allergies Allergy Verified 07/08/22 17:36 [No Known Allergies*] Review of Systems Review of Systems: Constitutional : No Weight loss, No Fever, No Chills, No Fatigue, No Malaise ENT/Mouth : No sore throat, No Rhinorrhea Eyes: No Eye Pain, No Swelling, No Redness Cardiovascular : No Chest Pain, No SOB, No Dyspnea on Exertion, No Orthopnea, No Edema, No Palpitations Respiratory : No Cough, No Sputum, No Wheezing Gastrointestinal : No Nausea, No Vomiting, No Diarrhea, No Constipation, No abdominal Pain, No Hematochezia, No Melena Genitourinary : No Dysuria, No Urinary Frequency, No Hematuria, Musculoskeletal : No joint pain, No Myalgias, No Joint Swelling Skin : No Skin Lesions, No rash Neuro : No Weakness, No Numbness, No Dizziness, No Headache Psych : + Anxiety/Panic, + Depression, - HI/SI, -A/V/T hallucinations All other systems reviewed and are negative Yes all other systems are reviewed and are negative [facility] Past Medical History Attestation statement: The following information was validated with the patient. Source: old records reviewed and nursing notes reviewed Medical History Depression ETOH abuse Mood disorder as late effect of traumatic brain injury TBI (traumatic brain injury) Social History Social History Household Members: Other Household Members Other:: Reports has been [employer]. Housing: Homeless Do you presently have visiting nurse or other home services: No Alcohol intake: current Alcohol intake frequency: 3 or more drinks per day Patient Tobacco Use Status: Never used Tobacco e-Cigarette/Vaping Use: Never Used Second Hand Smoke Exposure: No Substance Use Type: Caffiene Advance Directives: Yes Advance Directives on File: Yes Advance Directives Date on File: 05/06/21 service: No Sexual orientation: Straight/Heterosexual Physical Exam ED Vital Signs: Vital Signs - 24 hr 07/30/22 21:22 Temperature 98.0 F Pulse Rate 92 Respiratory Rate 18 Blood Pressure 137/64 Pulse Oximetry 96 Oxygen Delivery Method Room Air BMI result Body Mass Index 34.9 vss Appearance: Alert.? Oriented X3.? No acute distress.? Head: Normocephalic, atraumatic, no step-offs or deformities Eyes: Pupils equal, round and reactive to light.? Extraocular eye movements intact CVS: Normal heart rate and rhythm.? Pulses normal.? Respiratory: No respiratory distress.? Breath sounds normal.? Abdomen: Soft and nontender.? Active bowel sounds all 4 quadrants Skin: Skin warm and dry.? Normal skin color.? Normal skin turgor.? Extremities: No lower extremity edema.? No calf ttp. 5/5 strength to bilateral upper and lower extremities Back: No midline tenderness, no C-spine tenderness, full range of motion, no CVA tenderness bilaterally Neuro: Oriented X 3.? No motor deficit.? No sensory deficit. CN 2-12 intact. [id number], nose to finger intact. Ambulating with steady gait normal coordination. Course Reevaluation(s) Reevaluation #1: CMP and CBC with no acute findings requiring any intervention. Urine positive for urine benzodiazepines. Salicylates, acetaminophen negative. Ethanol level to 57 consistent with acute alcohol intoxication. COVID swab pending. Medically cleared at this time, awaiting behavioral health evaluation. Patient placed on physician observation. Patient currently on safety checks continuously. Time: 23:01 Medical Decision Making Medical Decision Making [facility] Narrative: 1530 56-year-old female presents today with the EMS seeking detox for alcohol abuse. PE benign. Plan at this time is medical clearance, then psychiatric eval. Critical Care Time Critical Care Time Critical Care Time: No Discharge Plan Discharge Clinical Impression: Alcoholic intoxication Patient Disposition: Still a Patient Prescriptions: No Action thiamine HCl (vitamin B1) 100 mg Tablet 100 mg PO DAILY 30 Days Qty: 30 0RF hydroxyzine HCl 50 mg Tablet 50 mg PO BID PRN (Reason: Anxiety) 30 Days Qty: 60 0RF lidocaine 5 % Adhesive Patch,Medicated 1 patch transdermal DAILY 30 Days Qty: 30 0RF gabapentin 300 mg Capsule 300 mg PO TID 30 Days Qty: 90 0RF folic acid 1 mg tablet 1 tab PO DAILY 30 Days Qty: 30 0RF minerals Tablet 1 tab PO QAM quetiapine 50 mg tablet 150 mg PO BEDTIME trazodone 50 mg Tablet 50 mg PO BEDTIME PRN (Reason: Sleep) escitalopram oxalate 20 mg tablet 1 tab PO DAILY
[2022-07-30 23:40] VITALS: BP 133/74; PULSE 97; RESP 16; TEMP 37.6; O2SAT 93
[2022-07-30 23:56] LABS: COVID-19 Test Negative (Negative)
--- NOTE | 2022-07-31 00:32 | PC.NURSE ---
Pt sleeping in no apparent distress. Breaths are even and unlabored with equal chest rises. Will continue to monitor.
[2022-07-31 02:00] VITALS: BP 130/72; PULSE 96; RESP 16; TEMP 37.2; O2SAT 93
[2022-07-31 07:15] LABS: Amphetamine Screen Urine Not Detected (Not Detect); Barbiturates, Urine Not Detected (Not Detect); Benzodiazepines Screen Urine POSITIVE (Not Detect); Cannabinoid Screen Urine Not Detected (Not Detect); Cocaine Screen Urine Not Detected (Not Detect); Fentanyl, urine Not Detected (Not Detect); Opiate Screen Urine Not Detected (Not Detect); Phencyclidine Screen Urine Not Detected (Not Detect)
[2022-07-31 07:54] VITALS: BP 143/71; PULSE 98; RESP 16; TEMP 36.6; O2SAT 97
--- NOTE | 2022-07-31 07:59 | PC.NURSE ---
pt alert and oriented, skin pwd, respirations even and unlabored, pt reports having a headache /, no visible tremor at this time, denies nausea, denies si/hi pt changed over in green attire and belongings secured
== END 2022-07-31 09:10 | disposition home or self-care (01) ==
PROVIDERS: Physician Assistant; Emergency Provider Internal Medicine
DX: F10.129 Alcohol abuse with intoxication, unspecified (principal); Y90.8 Blood alcohol level of 240 mg/100 ml or more; Z20.822 Contact with and (suspected) exposure to COVID-19; Z79.899 Other long term (current) drug therapy
CPT/HCPCS: 36415; 80053; 80143; 80179; 80307; 82077; 83735; 85025; 87635; 99285

== ENCOUNTER 2022-08-02 18:08 | Emergency (ER) | payer OTHER, SELFPAY ==
[2022-08-02 18:26] VITALS: BP 132/66; BP 145/77; PULSE 85; PULSE 99; RESP 20; TEMP 36.9; O2SAT 97; BMI 33.0
--- NOTE | 2022-08-02 18:48 | ED_ITS ---
HPI - Alcohol General Chief Complaint: ETOH/Substance Use Stated Complaint: ETOH Time Seen by Provider: 08/02/22 18:12 Source: patient and EMS Mode of arrival: EMS Limitations: no limitations History of Present Illness HPI narrative: Patient comes to the emergency room via ambulance requesting help to go to detox for alcohol abuse. Patient states that she drank 7 it is today prior to arrival. Patient states that that is her usual amount. Patient denies suicidal or homicidal ideation. Patient denies any falls or any injuries. Patient states that she has tried detox before, had a relapse, is trying to get back to detox. Patient states that she has been making her own phone calls trying to get into detox, however patient states that they do not understand her, ?seems that she is talking Tristanian to the detox facilities? Related Data Home Medications Medication Instructions Recorded Confirmed minerals 1 tab PO QAM 07/08/22 07/28/22 quetiapine 50 mg tablet 150 mg PO BEDTIME 07/08/22 07/28/22 trazodone 50 mg tablet 50 mg PO BEDTIME PRN Sleep 07/12/22 07/28/22 escitalopram oxalate 20 mg tablet 1 tab PO DAILY 07/28/22 07/28/22 Previous Rx's Medication Instructions Recorded folic acid 1 mg tablet 1 tab PO DAILY 30 days #30 tabs 05/24/22 gabapentin 300 mg capsule 300 mg PO TID 30 days #90 caps 05/24/22 hydroxyzine HCl 50 mg tablet 50 mg PO BID PRN Anxiety 30 days 05/24/22 #60 tabs lidocaine 5 % topical patch 1 patch transdermal DAILY 30 days 05/24/22 #30 ea thiamine HCl (vitamin B1) 100 mg 100 mg PO DAILY 30 days #30 tabs 05/24/22 tablet Allergies Allergy/AdvReac Type Severity Reaction Status Date / Time No Known Allergies Allergy Verified 08/02/22 18:30 [No Known Allergies*] Review of Systems Review of Systems: Constitutional : No Weight loss, No Fever, No Chills, No Night Sweats, No Fatigue, No Malaise ENT/Mouth : No Hearing loss, No Ear Pain, No Nasal Congestion, No Sinus Pain, No Hoarseness, No sore throat, No Rhinorrhea, No Swallowing Difficulty Eyes: No Eye Pain, No Swelling, No Redness, No Foreign Body, No Discharge, No Vision Changes Cardiovascular : No Chest Pain, No SOB, No Dyspnea on Exertion, No Orthopnea, No Edema, No Palpitations Respiratory : No Cough, No Sputum, No Wheezing, No Smoke Exposure, No Dyspnea Gastrointestinal : No Nausea, No Vomiting, No Diarrhea, No Constipation, No abdominal Pain, No Hematochezia, No Melena Genitourinary : no irregular bleeding, No Dysuria, No Urinary Frequency, No Hematuria, No Urinary Incontinence, No Urgency, No Flank Pain, No Urinary Flow Changes, No Hesitancy Musculoskeletal : No joint pain, No Myalgias, No Joint Swelling Skin : No Skin Lesions, No rash Neuro : No Weakness, No Numbness, No Paresthesias, No Loss of Consciousness, No Dizziness, No Headache Psych : No Anxiety/Panic, No Depression, No SI/HI/AH/VH, No Social Issues, Heme/Lymph: No Bruising, No Bleeding,No Lymphadenopathy Endocrine : No Polyuria, No Polydipsia, No Temperature Intolerance PMFSH Past Medical History Medical History Depression ETOH abuse Mood disorder as late effect of traumatic brain injury TBI (traumatic brain injury) Social History Social History Household Members: Other Household Members Other:: Reports has been [employer]. Housing: Homeless Do you presently have visiting nurse or other home services: No Alcohol intake: current Alcohol intake frequency: 3 or more drinks per day Patient Tobacco Use Status: Never used Tobacco e-Cigarette/Vaping Use: Never Used Second Hand Smoke Exposure: No Substance Use Type: Caffiene Advance Directives: Yes Advance Directives on File: Yes Advance Directives Date on File: 05/06/21 service: No Sexual orientation: Straight/Heterosexual Physical Exam ED Vital Signs: Vital Signs - 24 hr 08/02/22 18:26 08/02/22 20:52 Temperature 98.5 F 99.0 F Pulse Rate 99 99 Respiratory Rate 20 20 Blood Pressure 145/77 H 118/61 Pulse Oximetry 97 93 Oxygen Delivery Method Room Air Room Air BMI result Body Mass Index 33.0 Const Other: Appearance: Alert. Oriented X3. No acute distress. Eyes: Pupils equal, round and reactive to light. ENT: Pharynx normal. Neck: Normal inspection. Neck supple. No lymph nodes noted. No crepitus CVS: Normal heart rate and rhythm. Pulses normal. Normal S1 and S2 Respiratory: No respiratory distress. Breath sounds normal. No Wheezing. No rales Abdomen: Soft and nontender. No rigidity. No distention. Skin: Skin warm and dry. Normal skin color. Normal skin turgor. Extremities: No lower extremity edema. No Lacerations. No Rash Neuro: Oriented X 3. No motor deficit. No sensory deficit. Moving all extremities. No slurred speech. CN 2 through 12 grossly intact Psych: calm, cooperative, normal affect Course Course Course Narrative: Patient states that she has possibly a bed available in [facility]. However, she has been having multiple misunderstandings with the staff regarding bed availability. Our power and recovery superintendent has been contacted, he is at bedside, speaking to the patient, he will call [facility] and help with the process Physician observation started at 18:50 I was informed by the power and recovery superintendent the patient has been banned from [facility]. Our power and recovery superintendent called Poli, he was instructed to have the team try again in the morning as a bed may become available Sign-out given to Dr. Rucker Discharge Plan Discharge Clinical Impression: Alcohol dependence Patient Disposition: Still a Patient Prescriptions: No Action thiamine HCl (vitamin B1) 100 mg Tablet 100 mg PO DAILY 30 Days Qty: 30 0RF hydroxyzine HCl 50 mg Tablet 50 mg PO BID PRN (Reason: Anxiety) 30 Days Qty: 60 0RF lidocaine 5 % Adhesive Patch,Medicated 1 patch transdermal DAILY 30 Days Qty: 30 0RF gabapentin 300 mg Capsule 300 mg PO TID 30 Days Qty: 90 0RF folic acid 1 mg tablet 1 tab PO DAILY 30 Days Qty: 30 0RF minerals Tablet 1 tab PO QAM quetiapine 50 mg tablet 150 mg PO BEDTIME trazodone 50 mg Tablet 50 mg PO BEDTIME PRN (Reason: Sleep) escitalopram oxalate 20 mg tablet 1 tab PO DAILY
--- NOTE | 2022-08-02 19:03 | MHC.RECOVSUP ---
? Reason for consult Recovery Support o Current location: ED06H o Identified substance use concern: Alcohol - Seeking ATS (detox) - Support ? Intervention: o Community resources provided o Harm reduction discussion ? Plan: o Follow up tomorrow o Patient to follow up with [facility] after discharge ? Additional information: Met with Patient and she stated that she may have a bed at [facility]... I called Dina Gilman and they stated that she cant go there due to incident that happen the last time she was there.. I called [facility] and they stated that at the moment they don't have any beds to try tomorrow... i informed the care team of patient status..
--- NOTE | 2022-08-02 20:29 | PC.NURSE ---
Assumed care of patient. Patient resting quietly waiting for consult for detox. No apparent distress.
--- NOTE | 2022-08-02 20:41 | PC.NURSE ---
pt arrived alert and oriented via ambulace pt stated that she is seeking detox, denies an SI/HI denies any chest pain or sob
[2022-08-02 20:52] VITALS: BP 118/61; PULSE 99; RESP 20; TEMP 37.2; O2SAT 93
[2022-08-03 04:37] VITALS: BP 141/78; PULSE 90; RESP 16; TEMP 36.6; O2SAT 94
--- NOTE | 2022-08-03 06:45 | PC.NURSE ---
Patient resting quietly. Inquired about detox. No apparent distress.
--- NOTE | 2022-08-03 10:03 | PC.NURSE ---
trang contacted per pt request. pt getting frustrated with detox bed search.
--- NOTE | 2022-08-03 11:31 | MHC.RECOVSUP ---
Recovery Support note: Patient presented to [facility] ED seeking detox. Patient known to this hand sign writer and Recovery Team. Patient referred to [facility], completed intake, and accepted for treatment. Admission time 1300. Patient to be transported via Lyft.
== END 2022-08-03 11:40 ==
PROVIDERS: Emergency Provider Emergency Medicine
DX: F10.29 Alcohol dependence with unspecified alcohol-induced disorder (principal); Z71.41 Alcohol abuse counseling and surveillance of alcoholic; Z79.899 Other long term (current) drug therapy
CPT/HCPCS: 99284; 99285

== ENCOUNTER 2022-10-04 16:44 | Emergency (ER) | payer OTHER, SELFPAY ==
[2022-10-04 16:48] VITALS: BP 105/56; BP 130/72; PULSE 94; PULSE 96; RESP 18; TEMP 36.6; O2SAT 94; O2SAT 97; BMI 31.1
--- NOTE | 2022-10-04 17:11 | ED_ITS ---
HPI - Alcohol General Chief Complaint: ETOH/Substance Use Stated Complaint: ETOH Time Seen by Provider: 10/04/22 16:48 Source: patient and EMS Mode of arrival: EMS Limitations: no limitations History of Present Illness HPI narrative: 56 year old female came in via EMS seeking detox, patient is afraid she is going to withdrawal from alcohol and would like to speak to somebody. This is causing her anxiety and depression. Patient reports no hallucinations visual tactile or auditory. Patient self reports tremors. Patient says she drinks 8-10 nips a day, last drink was prior to arrival. Patient reports she has not vomited but does have nausea no dizziness no confusion no diaphoresis. Intermittent diffuse headache, tells me feels likley typical headache when shes withdrawling. Patient reports some anxiety and depression however tells me her main reason for coming in is for detox. Denies SI and HI. Patient has been to detox in the past. She is scheduled to go to a detox program out in [place] on Friday however not sure if she can make it until then at home. Denies chest pain, shortness of breath, vomiting, diarrhea, vision changes, dizziness, weakness, hallucinations. Denies other drugs and tobacco. Chronic alcohol use: Yes Related Data Home Medications Medication Instructions Recorded Confirmed minerals 1 tab PO QAM 07/08/22 07/28/22 quetiapine 50 mg tablet 150 mg PO BEDTIME 07/08/22 07/28/22 trazodone 50 mg tablet 50 mg PO BEDTIME PRN Sleep 07/12/22 07/28/22 escitalopram oxalate 20 mg tablet 1 tab PO DAILY 07/28/22 07/28/22 Previous Rx's Medication Instructions Recorded folic acid 1 mg tablet 1 tab PO DAILY 30 days #30 tabs 05/24/22 gabapentin 300 mg capsule 300 mg PO TID 30 days #90 caps 05/24/22 hydroxyzine HCl 50 mg tablet 50 mg PO BID PRN Anxiety 30 days 05/24/22 #60 tabs lidocaine 5 % topical patch 1 patch transdermal DAILY 30 days 05/24/22 #30 ea thiamine HCl (vitamin B1) 100 mg 100 mg PO DAILY 30 days #30 tabs 05/24/22 tablet Allergies Allergy/AdvReac Type Severity Reaction Status Date / Time No Known Allergies Allergy Verified 08/02/22 18:30 [No Known Allergies*] Review of Systems Review of Systems: Constitutional : No Weight loss, No Fever, No Chills, + Fatigue, + Malaise ENT/Mouth : No sore throat, No Rhinorrhea Eyes: No Eye Pain, No Swelling, No Redness Cardiovascular : No Chest Pain, No SOB, No Dyspnea on Exertion, No Orthopnea, No Edema, No Palpitations Respiratory : No Cough, No Sputum, No Wheezing Gastrointestinal : + Nausea, No Vomiting, No Diarrhea, No Constipation, No abd ominal Pain, No Hematochezia, No Melena Genitourinary : No Dysuria, No Urinary Frequency, No Hematuria, Musculoskeletal : No joint pain, No Myalgias, No Joint Swelling Skin : No Skin Lesions, No rash Neuro : No Weakness, No Numbness, No Dizziness, + Headache Psych : No Anxiety/Panic, No Depression All other systems reviewed and are negative Yes all other systems are reviewed and are negative [facility] Past Medical History Attestation statement: The following information was validated with the patient. Source: old records reviewed and nursing notes reviewed Medical History Depression ETOH abuse Mood disorder as late effect of traumatic brain injury TBI (traumatic brain injury) Social History Social History Household Members: Other Household Members Other:: Reports has been [employer] surfing. Housing: Homeless Do you presently have visiting nurse or other home services: No Alcohol intake: current Alcohol intake frequency: 0-2 drinks per day Patient Tobacco Use Status: Never used Tobacco e-Cigarette/Vaping Use: Never Used Second Hand Smoke Exposure: No Substance Use Type: Caffiene Advance Directives: Yes Advance Directives on File: Yes Advance Directives Date on File: 05/06/21 service: No Sexual orientation: Straight/Heterosexual Physical Exam ED Vital Signs: Vital Signs - 24 hr 10/04/22 16:48 10/04/22 20:16 10/05/22 00:12 Temperature 97.8 F 98.6 F Pulse Rate 94 103 H Respiratory Rate 18 18 18 Blood Pressure 105/56 L 129/81 Pulse Oximetry 97 95 Oxygen Delivery Method Room Air Room Air BMI result Body Mass Index 31.1 vss Appearance: Alert.? Oriented X3.? No acute distress.? Head: Normocephalic, atraumatic, no step-offs or deformities Eyes: Pupils equal, round and reactive to light.? ENT: Pharynx normal.? No tongue fasciculations. Neck: Normal inspection.? Neck supple.? CVS: Normal heart rate and rhythm.? Pulses normal.? Respiratory: No respiratory distress.? Breath sounds normal.? Abdomen: Soft and nontender.? Skin: Skin warm and dry.? Normal skin color.? Normal skin turgor.? Extremities: No lower extremity edema.? No calf ttp. 5/5 strength to bilateral upper and lower extremities Neuro: Oriented X 3.? No motor deficit.? No sensory deficit. CN 2-12 intact . Normal rapid alternating movements, normal [id number], ambulatory with steady gait normal coordination. CIWA 6 on arrival. Course Reevaluation(s) Reevaluation #1: Patient's CBC within normal limits. Chemistry with no acute electrolyte abnormalities requiring intervention. Ethanol level to 48 consistent with acute alcohol intoxication. CIWA remains 6, patient complaining of slight diffuse headache, feels like her typical with a vision changes or dizziness, neuro nonfocal, cerebellar intact ( unlikely stroke posterior stroke.). COVID negative. Time: 18:00 Reevaluation #2: On re-evaluation patient feels well, she was still 6, complaining of headache, will order Tylenol for headache. At this time patient will be placed into physician observation to allow more time to be evaluated by the behavioral health team, and hopes to get detox. At time observation started patient common cooperative no acute distress will continue to monitor. Time: 01:16 Medical Decision Making Medical Decision Making [facility] Narrative: 56-year-old female presents requesting detox. Slight complaints of nausea, anxiety. Physical examination benign. Neuro nonfocal. Likely acute alcohol intoxication concerns for potential alcohol withdrawal, DTs. Will rule out electrolyte abnormalities. Headache likely secondary to alcohol intoxication and/or early withdrawal, unlikely intracranial hemorrhage, stroke, posterior stroke. Plan at this time medical clearance evaluation by the behavioral health team. Differential Diagnosis Differential Diagnoses: The differential diagnosis associated with the presentation includes Likely acute alcohol intoxication concerns for potential alcohol withdrawal, DTs. Will rule out electrolyte abnormalities. Headache likely secondary to alcohol intoxication and/or early withdrawal, unlikely intracranial hemorrhage, stroke, posterior stroke. Admission/Observation Consideration of admission/observation: Escalation of care including admission/observation considered Lab Data [facility] Lab Attestation statement: I reviewed the patient's lab results. 10/04/22 17:33 10/04/22 17:33 Labs: Lab Results 10/04/22 10/04/22 10/04/22 Range/Units 17:33 17:33 17:48 WBC 6.6 (4.8-10.8) X10*3/uL RBC 4.27 (4.20-5.50) X10*6/uL Hgb 12.6 (12.0-16.0) g/dl Hct 39.1 (37.0-47.0) % MCV 91.6 (80.0-98.0) fL MCH 29.5 (27.0-33.0) pg MCHC 32.2 (31.0-35.0) g/dl RDW 14.6 (11.0-16.0) % Plt Count 393 (160-400) X10*3/uL MPV 9.5 (9.4-12.3) fL Immature Gran % (Auto) 0.2 (0.0-0.4) % Neut % (Auto) 30.9 L (45-73) % Lymph % (Auto) 60.1 H (20-40) % [place] % (Auto) 6.4 (2-11) % Eos % (Auto) 1.5 (0-4) % Baso % (Auto) 0.9 (0-2) % Lymph # (Auto) 4.0 (1.2-4.9) X10*3/uL [place] # (Auto) 0.4 (0.1-1.2) X10*3/uL Eos # (Auto) 0.1 (0.0-0.4) X10*3/uL Baso # (Auto) 0.1 (0.0-0.2) X10*3/uL Abs Immat Gran (auto) 0.01 (0.00-0.03) X10*3/uL Absolute Neuts (auto) 2.0 (2.0-8.3) x10*3/uL Absolute Nucleated RBC 0.000 (0.0-0.012) X10*3/uL Nucleated RBC % (auto) 0.0 (0.0-0.2) /100WBC Smear Tech's Comments VERIFIED Sodium 145 (135-145) mmol/L Potassium 4.2 D (3.3-5.1) mmol/L Chloride 110 H (96-108) mmol/L Carbon Dioxide 20 L (22-29) mmol/L Anion Gap 19 (12-20) BUN 13 (9-16) mg/dL Creatinine 0.93 (0.5-1.4) mg/dL Estim Creat Clear Calc 60.9 Estimated GFR > 60 Random Glucose 92 (60-115) mg/dL Calcium 10.0 (8.4-10.2) mg/dL Magnesium 2.0 (1.6-2.6) mg/dL Total Bilirubin 0.4 (0.0-1.0) mg/dL AST 21 (5-31) U/L ALT 18 (0-31) U/L Alkaline Phosphatase 76 (39-117) U/L Total Protein 8.7 H (6.5-8.0) g/dL Albumin 4.5 (3.5-5.0) g/dL Ethyl Alcohol mg/dL COVID-19 (GARCIA) Negative (Negative) COVID-19 Clin Com See Note 10/04/22 Range/Units 17:48 WBC (4.8-10.8) X10*3/uL RBC (4.20-5.50) X10*6/uL Hgb (12.0-16.0) g/dl Hct (37.0-47.0) % MCV (80.0-98.0) fL MCH (27.0-33.0) pg MCHC (31.0-35.0) g/dl RDW (11.0-16.0) % Plt Count (160-400) X10*3/uL MPV (9.4-12.3) fL Immature Gran % (Auto) (0.0-0.4) % Neut % (Auto) (45-73) % Lymph % (Auto) (20-40) % [place]ville % (Auto) (2-11) % Eos % (Auto) (0-4) % Baso % (Auto) (0-2) % Lymph # (Auto) (1.2-4.9) X10*3/uL [place]ville # (Auto) (0.1-1.2) X10*3/uL Eos # (Auto) (0.0-0.4) X10*3/uL Baso # (Auto) (0.0-0.2) X10*3/uL Abs Immat Gran (auto) (0.00-0.03) X10*3/uL Absolute Neuts (auto) (2.0-8.3) x10*3/uL Absolute Nucleated RBC (0.0-0.012) X10*3/uL Nucleated RBC % (auto) (0.0-0.2) /100WBC Smear Tech's Comments Sodium (135-145) mmol/L Potassium (3.3-5.1) mmol/L Chloride (96-108) mmol/L Carbon Dioxide (22-29) mmol/L Anion Gap (12-20) BUN (9-16) mg/dL Creatinine (0.5-1.4) mg/dL Estim Creat Clear Calc Estimated GFR Random Glucose (60-115) mg/dL Calcium (8.4-10.2) mg/dL Magnesium (1.6-2.6) mg/dL Total Bilirubin (0.0-1.0) mg/dL AST (5-31) U/L ALT (0-31) U/L Alkaline Phosphatase (39-117) U/L Total Protein (6.5-8.0) g/dL Albumin (3.5-5.0) g/dL Ethyl Alcohol 248 mg/dL COVID-19 (GARCIA) (Negative) COVID-19 Clin Com External Record Review External record reviewed: Inpatient record, Office record, Outpatient record, Prior outpatient labs, Prior outpatient radiology, Primary care record and Outside ED record Core Measures AMI core measures followed: Yes Measure exclusions: not indicated Critical Care Time Critical Care Time Critical Care Time: No Discharge Plan Discharge Clinical Impression: Alcoholic intoxication Patient Disposition: Still a Patient Prescriptions: No Action thiamine HCl (vitamin B1) 100 mg Tablet 100 mg PO DAILY 30 Days Qty: 30 0RF hydroxyzine HCl 50 mg Tablet 50 mg PO BID PRN (Reason: Anxiety) 30 Days Qty: 60 0RF lidocaine 5 % Adhesive Patch,Medicated 1 patch transdermal DAILY 30 Days Qty: 30 0RF gabapentin 300 mg Capsule 300 mg PO TID 30 Days Qty: 90 0RF folic acid 1 mg tablet 1 tab PO DAILY 30 Days Qty: 30 0RF minerals Tablet 1 tab PO QAM quetiapine 50 mg tablet 150 mg PO BEDTIME trazodone 50 mg Tablet 50 mg PO BEDTIME PRN (Reason: Sleep) escitalopram oxalate 20 mg tablet 1 tab PO DAILY Interventions: Blodgett-Suicide Risk Severity Scale Last Done: 10/04/22 21:11
[2022-10-04 17:40] LABS: Eosinophils Absolute Auto 0.1 X10*3/uL (0.0-0.4); Eosinophils Percent Auto 1.5 % (0-4); Hemoglobin 12.6 g/dl (12.0-16.0); Mean Corpuscular Volume 91.6 fL (80.0-98.0); PLT CLUMP 1; Red Cell Distribution Width 14.6 % (11.0-16.0); SCAN SMEAR FLAG 1
[2022-10-04 17:42] LABS: Basophils Absolute Auto 0.1 X10*3/uL (0.0-0.2); Basophils Percent Auto 0.9 % (0-2); Hematocrit 39.1 % (37.0-47.0); Imm Gran Abs Auto 0.01 X10*3/uL (0.00-0.03); Imm Gran Pct Auto 0.2 % (0.0-0.4); Lymphocytes Percent Auto 60.1 % (20-40); MANUAL DIFF FLAG SCAN; Mean Corpuscular HGB Conc 32.2 g/dl (31.0-35.0); Mean Corpuscular Hemoglobin 29.5 pg (27.0-33.0); Mean Platelet Volume 9.5 fL (9.4-12.3); Monocytes Absolute Auto 0.4 X10*3/uL (0.1-1.2); Monocytes Percent Auto 6.4 % (2-11); Neutrophils Percent Auto 30.9 % (45-73); Red Blood Count 4.27 X10*6/uL (4.20-5.50)
[2022-10-04 18:02] LABS: Alanine Aminotransferase 18 U/L (0-31); Albumin Level 4.5 g/dL (3.5-5.0); Alkaline Phosphatase 76 U/L (39-117); Anion Gap 19 (12-20); Aspartate Amino Transferase 21 U/L (5-31); Bilirubin Total 0.4 mg/dL (0.0-1.0); Blood Urea Nitrogen 13 mg/dL (9-16); Carbon Dioxide 20 mmol/L (22-29); Chloride 110 mmol/L (96-108); Creatinine Clr Calc Pharmacy 60.9; Estimated Glomerular Filt Rate > 60; Glucose Random 92 mg/dL (60-115); Potassium 4.2 mmol/L (3.3-5.1); Sodium 145 mmol/L (135-145); Total Protein 8.7 g/dL (6.5-8.0)
[2022-10-04 18:09] LABS: COVID-19 Test Negative (Negative); Ethanol 248 mg/dL; IDNOW Serial# 16C4AD1C
[2022-10-04 18:12] LABS: White Blood Count 6.6 X10*3/uL (4.8-10.8)
[2022-10-04 18:13] LABS: Platelet Count 393 X10*3/uL (160-400); SLIDE REVIEW VERIFIED
[2022-10-04 20:16] VITALS: RESP 18
[2022-10-05 00:12] VITALS: BP 129/81; PULSE 103; RESP 18; TEMP 37; O2SAT 95
[2022-10-05 02:19] VITALS: BP 133/85; PULSE 120; RESP 16; TEMP 36.7; O2SAT 95
[2022-10-05] MEDS: LORazepam 1 MG TABLET PO (02:34)
--- NOTE | 2022-10-05 08:12 | PC.NURSE ---
Patient not in room eloped aware
== END 2022-10-05 08:13 | disposition left against medical advice (07) ==
PROVIDERS: Physician Assistant; Emergency Provider Emergency Medicine
DX: F10.129 Alcohol abuse with intoxication, unspecified (principal); Y90.8 Blood alcohol level of 240 mg/100 ml or more; Z20.822 Contact with and (suspected) exposure to COVID-19; Z20.828 Contact with and (suspected) exposure to other viral communicable diseases; Z79.899 Other long term (current) drug therapy
CPT/HCPCS: 36415; 80053; 82077; 83735; 85025; 87635; 99284

== ENCOUNTER 2022-10-05 13:16 | Emergency (ER) | payer OTHER, SELFPAY ==
[2022-10-05 13:36] VITALS: BP 130/90; PULSE 93; O2SAT 96; BMI 25.0
[2022-10-05 13:42] VITALS: BP 122/54; PULSE 94; RESP 16; TEMP 36.9; O2SAT 97
--- NOTE | 2022-10-05 13:47 | PC.NURSE ---
pt AOx3, vss. Reported SI to EMS but is currently denining any feelings of SI or ever having thoughts of suicide. Changed over to hospital clothes. awaiting ed provider.
[2022-10-05 14:00] VITALS: BP 115/64; PULSE 99; RESP 16; TEMP 36.9; O2SAT 96
--- NOTE | 2022-10-05 14:11 | ED_ITS ---
HPI - Psych General Chief Complaint: Psychiatric Symptoms Stated Complaint: detox Time Seen by Provider: 10/05/22 13:47 Source: patient and EMS Mode of arrival: EMS Limitations: no limitations History of Present Illness HPI Narrative: 56-year-old female here looking for detox from alcohol. Patient drinks 1 sleeve of nips daily. Last drink just prior to arrival. No additional substance use. No physical complaints. No suicidal thoughts. Related Data Home Medications Medication Instructions Recorded Confirmed minerals 1 tab PO QAM 07/08/22 07/28/22 quetiapine 50 mg tablet 150 mg PO BEDTIME 07/08/22 07/28/22 trazodone 50 mg tablet 50 mg PO BEDTIME PRN Sleep 07/12/22 07/28/22 escitalopram oxalate 20 mg tablet 1 tab PO DAILY 07/28/22 07/28/22 Previous Rx's Medication Instructions Recorded folic acid 1 mg tablet 1 tab PO DAILY 30 days #30 tabs 05/24/22 gabapentin 300 mg capsule 300 mg PO TID 30 days #90 caps 05/24/22 hydroxyzine HCl 50 mg tablet 50 mg PO BID PRN Anxiety 30 days 05/24/22 #60 tabs lidocaine 5 % topical patch 1 patch transdermal DAILY 30 days 05/24/22 #30 ea thiamine HCl (vitamin B1) 100 mg 100 mg PO DAILY 30 days #30 tabs 05/24/22 tablet Allergies Allergy/AdvReac Type Severity Reaction Status Date / Time No Known Allergies Allergy Verified 08/02/22 18:30 [No Known Allergies*] Review of Systems Review of Systems: Yes all other systems are reviewed and are negative Constitutional: Constitutional: Reports no additional constitutional complaints, Denies body ache(s), Denies chills, Denies fever(s), Denies headache(s) and Denies weakness Eyes: Eyes: Reports no additional eye complaints and Denies change in vision ENT: Reports system reviewed and no additional complaints, except as documented, Denies dizziness, Denies headache(s), Denies nasal congestion, Denies nasal discharge and Denies neck pain Cardiovascular: Cardiovascular: Reports no additional cardiovascular complaints, Denies chest pain, Denies leg edema and Denies dyspnea Respiratory: Respiratory: Reports no additional respiratory complaints, Denies cough and Denies dyspnea Gastrointestinal: Gastrointestinal: Reports no additional gastrointestinal complaints, Denies abdominal pain, Denies diarrhea, Denies nausea and Denies vomiting Genitourinary: Genitourinary: Reports no additional female genitourinary compl aints and Denies urinary incontinence Musculoskeletal: Musculoskeletal: Reports no additional musculoskeletal complaints, Denies back pain, Denies arthralgias, Denies joint swelling, Denies neck pain, Denies numbness and Denies tingling Integumentary/Breasts: Skin/Breast: Reports system reviewed and no additional complaints, except as docu and Denies rash Neurologic: Reports system reviewed and no additional complaints, except as documented, Denies Abnormal speech present, Denies dizziness, Denies headache(s), Denies numbness, Denies tingling and Denies weakness Psychiatric: Psychiatric: Denies depression and Denies suicidal ideation [facility] Past Medical History Attestation statement: The following information was validated with the patient. Source: old records reviewed and nursing notes reviewed Medical History Depression ETOH abuse Mood disorder as late effect of traumatic brain injury TBI (traumatic brain injury) Social History Social History Household Members: Other Household Members Other:: Reports has been Quacking. Housing: Homeless Do you presently have visiting nurse or other home services: No Alcohol intake: current Alcohol intake frequency: 0-2 drinks per day Patient Tobacco Use Status: Never used Tobacco Smoked in Last 30 Days: No e-Cigarette/Vaping Use: Never Used Second Hand Smoke Exposure: No Use of substances other than those prescribed or required for medical reasons: No Substance Use Type: Caffiene Advance Directives: No Advance Directives Information Provided: No Advance Directives Date on File: 05/06/21 Patient : No service: No Sexual orientation: Straight/Heterosexual Physical Exam Vital Signs: Vital Signs: Last Vital Signs Temp 98.2 F 10/05/22 15:45 Pulse 96 10/05/22 15:45 Resp 16 10/05/22 15:45 BP 118/58 L 10/05/22 15:45 Pulse Ox 97 10/05/22 15:45 O2 Del Method 10/05/22 15:45 BMI result Body Mass Index 25.0 Const: General: cooperative, healthy appearing, comfortable and no acute distress Orientation/consciousness: patient oriented x3 Limitations: no limitations HEENT: Head: Yes normal to inspection Ears: hearing grossly normal bilaterally General nose exam: Normal external nose present Face and sinus: Yes normal facial exam Mouth: Normal oral and palatal mucosa present Throat: Yes posterior oropharynx normal Eyes: General: appearance normal, both eyes and all related structures Pupils: Equal, round and reactive pupils present Neck: Neck: Yes normal visual inspection Chest: Chest palpation & inspection: normal inspection of the chest Resp: Effort & Inspection: normal respiratory effort Auscultation: clear to auscultation bilaterally Cardio: Rate: regular rate Rhythm: regular rhythm Peripheral pulses: Peripheral pulses 2+ throughout GI: Inspection: Yes normal to inspection Palpation (GI): Soft to palpation and nontender Auscultation: normal bowel sounds Back/Spine/Pelvis: Thoracic/Lumbar Spine: thoracic and lumbar spine normal to inspection Skin: General skin exam: no rashes or lesions noted Neuro: General: patient oriented x3, no focal motor deficits and normal sensation to monofilament Cranial nerves: Yes Equal, round and reactive pupils present Cognition (Neuro): normal cognition Speech: No Abnormal speech present Gait exam (Neuro): Normal gait present Motor exam (neuro): 5/5 motor strength present throughout Extrem: General: Yes normal to inspection Course Course Course Narrative: Reviewed labs. Patient waiting to be seen by resource recovery specialist Reevaluation(s) Reevaluation #1: patient along with a detox. Patient wants to go home. Patient will need sober ride and then she can be dischar Medical Decision Making Medical Decision Making MDM Narrative: 56-year-old female here seeking detox from alcohol. No physical complaints. No concern for acute ingestion or trauma. Will obtai n labs, drug screen, COVID screen Once medically cleared will involve power and recovery shift engineer Differential Diagnosis Differential Diagnoses: The differential diagnosis associated with the presentation includes Lab Data 10/05/22 14:17 10/05/22 14:17 Labs: Lab Results 10/05/22 10/05/22 10/05/22 Range/Units 14:17 14:17 14:18 WBC 7.0 (4.8-10.8) X10*3/uL RBC 3.99 L (4.20-5.50) X10*6/uL Hgb 11.8 L (12.0-16.0) g/dl Hct 36.2 L (37.0-47.0) % MCV 90.7 (80.0-98.0) fL MCH 29.6 (27.0-33.0) pg MCHC 32.6 (31.0-35.0) g/dl RDW 14.4 (11.0-16.0) % Plt Count 389 (160-400) X10*3/uL MPV 9.1 L (9.4-12.3) fL Immature Gran % (Auto) 0.1 (0.0-0.4) % Neut % (Auto) 43.8 L (45-73) % Lymph % (Auto) 47.8 H (20-40) % Pepin % (Auto) 6.3 (2-11) % Eos % (Auto) 1.1 (0-4) % Baso % (Auto) 0.9 (0-2) % Lymph # (Auto) 3.4 (1.2-4.9) X10*3/uL Pepin # (Auto) 0.4 (0.1-1.2) X10*3/uL Eos # (Auto) 0.1 (0.0-0.4) X10*3/uL Baso # (Auto) 0.1 (0.0-0.2) X10*3/uL Abs Immat Gran (auto) 0.01 (0.00-0.03) X10*3/uL Absolute Neuts (auto) 3.1 (2.0-8.3) x10*3/uL Absolute Nucleated RBC 0.000 (0.0-0.012) X10*3/uL Nucleated RBC % (auto) 0.0 (0.0-0.2) /100WBC Sodium 143 (135-145) mmol/L Potassium 3.5 (3.3-5.1) mmol/L Chloride 108 (96-108) mmol/L Carbon Dioxide 19 L (22-29) mmol/L Anion Gap 20 (12-20) BUN 16 (9-16) mg/dL Creatinine 0.78 (0.5-1.4) mg/dL Estim Creat Clear Calc 70.7 Estimated GFR > 60 Random Glucose 123 H (60-115) mg/dL Calcium 9.6 (8.4-10.2) mg/dL Total Bilirubin 0.4 (0.0-1.0) mg/dL Direct Bilirubin < 0.2 (0.0-0.5) mg/dL AST 17 (5-31) U/L ALT 15 (0-31) U/L Alkaline Phosphatase 74 (39-117) U/L Total Protein 8.1 H (6.5-8.0) g/dL Albumin 4.3 (3.5-5.0) g/dL Ethyl Alcohol 219 mg/dL COVID-19 (GARCIA) Negative (Negative) COVID-19 Clin Com See Note Discharge Plan Discharge Clinical Impression: Alcohol use Patient Disposition: Home, Self-Care Instructions: Alcohol Use Disorder (ED) Prescriptions: No Action thiamine HCl (vitamin B1) 100 mg Tablet 100 mg PO DAILY 30 Days Qty: 30 0RF hydroxyzine HCl 50 mg Tablet 50 mg PO BID PRN (Reason: Anxiety) 30 Days Qty: 60 0RF lidocaine 5 % Adhesive Patch,Medicated 1 patch transdermal DAILY 30 Days Qty: 30 0RF gabapentin 300 mg Capsule 300 mg PO TID 30 Days Qty: 90 0RF folic acid 1 mg tablet 1 tab PO DAILY 30 Days Qty: 30 0RF minerals Tablet 1 tab PO QAM quetiapine 50 mg tablet 150 mg PO BEDTIME trazodone 50 mg Tablet 50 mg PO BEDTIME PRN (Reason: Sleep) escitalopram oxalate 20 mg tablet 1 tab PO DAILY Referrals: Anirudh Caro MD [Primary Care Provider] - 1 week Interventions: Chaplin-Suicide Risk Severity Scale Last Done: 10/05/22 13:42
[2022-10-05 14:23] LABS: MANUAL DIFF FLAG NO
[2022-10-05 14:25] LABS: Basophils Absolute Auto 0.1 X10*3/uL (0.0-0.2); Basophils Percent Auto 0.9 % (0-2); Eosinophils Absolute Auto 0.1 X10*3/uL (0.0-0.4); Eosinophils Percent Auto 1.1 % (0-4); Hematocrit 36.2 % (37.0-47.0); Hemoglobin 11.8 g/dl (12.0-16.0); Imm Gran Abs Auto 0.01 X10*3/uL (0.00-0.03); Imm Gran Pct Auto 0.1 % (0.0-0.4); Lymphocytes Absolute Auto 3.4 X10*3/uL (1.2-4.9); Lymphocytes Percent Auto 47.8 % (20-40); Mean Corpuscular HGB Conc 32.6 g/dl (31.0-35.0); Mean Corpuscular Hemoglobin 29.6 pg (27.0-33.0); Mean Corpuscular Volume 90.7 fL (80.0-98.0); Mean Platelet Volume 9.1 fL (9.4-12.3); Monocytes Absolute Auto 0.4 X10*3/uL (0.1-1.2); Monocytes Percent Auto 6.3 % (2-11); Neutrophils Absolute Auto 3.1 x10*3/uL (2.0-8.3); Neutrophils Percent Auto 43.8 % (45-73); Platelet Count 389 X10*3/uL (160-400); Red Blood Count 3.99 X10*6/uL (4.20-5.50); Red Cell Distribution Width 14.4 % (11.0-16.0)
[2022-10-05 14:39] LABS: COVID-19 Test Negative (Negative); IDNOW Serial# 16C4AD1C
[2022-10-05 14:45] LABS: Alanine Aminotransferase 15 U/L (0-31); Albumin Level 4.3 g/dL (3.5-5.0); Alkaline Phosphatase 74 U/L (39-117); Anion Gap 20 (12-20); Aspartate Amino Transferase 17 U/L (5-31); Bilirubin Direct < 0.2 mg/dL (0.0-0.5); Bilirubin Total 0.4 mg/dL (0.0-1.0); Blood Urea Nitrogen 16 mg/dL (9-16); Calcium 9.6 mg/dL (8.4-10.2); Carbon Dioxide 19 mmol/L (22-29); Chloride 108 mmol/L (96-108); Creatinine Clr Calc Pharmacy 70.7; Estimated Glomerular Filt Rate > 60; Ethanol 219 mg/dL; Glucose Random 123 mg/dL (60-115); Potassium 3.5 mmol/L (3.3-5.1); Sodium 143 mmol/L (135-145); Total Protein 8.1 g/dL (6.5-8.0)
[2022-10-05 15:45] VITALS: BP 118/58; PULSE 96; RESP 16; TEMP 36.8; O2SAT 97
--- NOTE | 2022-10-05 15:45 | PC.NURSE ---
patient sleeping, wakes to verbal stimulus, vss, pt currently denying si to this nurse- 1:1 sitter at bedside, call nava within reach, will continue to monitor.
--- NOTE | 2022-10-05 17:51 | MHC.RECOVSUP ---
? Reason for consult:Recovery Support o Current location:ED06H ? o ?Identified substance use concern: AUD ? Seeking ATS (detox) - Support ? ?Intervention: o Community resources provided o Harm reduction discussion ? Additional information:?Patient consultation with Em from the Recovery Support Team before entry. I was able to connect with patient, she stated she wanted to get into detox for the weekend because she didn't feel safe being out in the community because of her alcoholism. Patient also stated that she has been suffering from alcoholism for decades and [place] I started bed search and was interrupted due to patient wanting to leave because she suddenly realized that she left her personal belongings at a local motel. Bed search was ended, community services were provided. Consult with the medical team and patient will be discharged once a family member arrives to the ED and accompanies her or when patient alcohol levels are appropriate for discharge.
--- NOTE | 2022-10-05 17:52 | PC.NURSE ---
patient agitated because this nurse would not allow her to get dressed until her sober ride is here to pick her up, this was discussed with the provider as well which are in agreement. Patient has called her son and when he arrives we will obtain the patients clothing and allow her to dress. Security was notified as a standy due to the patients agitation, the recovery manager has come to this nurse stating the patient is wanting to leave in her hospital attire if this nurse doesnt give her clothies back.
== END 2022-10-05 19:50 | disposition home or self-care (01) ==
PROVIDERS: Nurse Practitioner Family; Emergency Provider Student in an Organized Health Care Education/Training Program; PCP Hospitalist
DX: F10.10 Alcohol abuse, uncomplicated (principal); Y90.7 Blood alcohol level of 200-239 mg/100 ml; R45.851 Suicidal ideations; Z20.822 Contact with and (suspected) exposure to COVID-19; F39 Unspecified mood [affective] disorder; Z87.820 Personal history of traumatic brain injury; Z79.899 Other long term (current) drug therapy
CPT/HCPCS: 80048; 80076; 82077; 85025; 87635; 99285

== ENCOUNTER 2022-10-06 16:45 | Emergency (ER) | payer OTHER, SELFPAY ==
--- NOTE | 2022-10-06 16:50 | ECG_ITS ---
Test Reason : GENERAL MEDICAL Blood Pressure : / mmHG Vent. Rate : 108 BPM Atrial Rate : 108 BPM P-R Int : 162 ms QRS Dur : 080 ms QT Int : 362 ms P-R-T Axes : 070 031 024 degrees QTc Int : 485 ms Sinus tachycardia Cannot rule out Anterior infarct , age undetermined Abnormal ECG When compared with ECG of 11-JUL-2022 21:04, Vent. rate has increased BY 38 BPM Minimal criteria for Anterior infarct are now Present Referred By: Marisela Montano Electronically Signed By:Sumit Suazo
[2022-10-06 16:53] VITALS: BP 134/99; PULSE 123; RESP 18; TEMP 36.8; O2SAT 94; BMI 30.2
[2022-10-06 17:19] LABS: MANUAL DIFF FLAG NO
[2022-10-06 17:20] LABS: Basophils Absolute Auto 0.1 X10*3/uL (0.0-0.2); Basophils Percent Auto 0.8 % (0-2); Eosinophils Absolute Auto 0.1 X10*3/uL (0.0-0.4); Eosinophils Percent Auto 1.1 % (0-4); Hematocrit 36.9 % (37.0-47.0); Hemoglobin 11.9 g/dl (12.0-16.0); Imm Gran Abs Auto 0.01 X10*3/uL (0.00-0.03); Imm Gran Pct Auto 0.1 % (0.0-0.4); Mean Corpuscular HGB Conc 32.2 g/dl (31.0-35.0); Mean Corpuscular Hemoglobin 29.5 pg (27.0-33.0); Mean Corpuscular Volume 91.6 fL (80.0-98.0); Monocytes Absolute Auto 0.6 X10*3/uL (0.1-1.2); Neutrophils Absolute Auto 4.6 x10*3/uL (2.0-8.3); Platelet Count 386 X10*3/uL (160-400); Red Blood Count 4.03 X10*6/uL (4.20-5.50); Red Cell Distribution Width 14.6 % (11.0-16.0); White Blood Count 10.3 X10*3/uL (4.8-10.8)
[2022-10-06 17:29] LABS: Prothrombin Time 11.6 SEC (10.0-13.1)
[2022-10-06 17:43] LABS: Alanine Aminotransferase 17 U/L (0-31); Albumin Level 4.3 g/dL (3.5-5.0); Alkaline Phosphatase 78 U/L (39-117); Anion Gap 22 (12-20); Aspartate Amino Transferase 19 U/L (5-31); Bilirubin Total 0.4 mg/dL (0.0-1.0); Blood Urea Nitrogen 16 mg/dL (9-16); Calcium 9.7 mg/dL (8.4-10.2); Carbon Dioxide 18 mmol/L (22-29); Chloride 106 mmol/L (96-108); Creatinine Clr Calc Pharmacy 63.8; Estimated Glomerular Filt Rate > 60; Ethanol 249 mg/dL; Glucose Random 132 mg/dL (60-115); Lipase 37 U/L (8-78); Magnesium 1.8 mg/dL (1.6-2.6); Potassium 3.4 mmol/L (3.3-5.1); Sodium 143 mmol/L (135-145); Total Protein 8.3 g/dL (6.5-8.0)
[2022-10-06 17:56] LABS: Influenza A PCR NEGATIVE (Negative); Influenza B PCR NEGATIVE (Negative); Resp Syncy Virus RNA Qual PCR NEGATIVE (Negative); SARS COV2 PCR INHOUSE NEGATIVE (Negative)
--- NOTE | 2022-10-06 19:16 | MHC.RECOVSUP ---
? Reason for consult:Recovery Support o Current location: ED 18H o Identified substance use concern: Alcohol Use Disorder? - Support o Harm reduction discussion o Follow up tomorrow ? ? Additional information:?Met with pt as a follow up from yesterday. Katiana was here yesterday seeking detox but left before that could happen. She returns to the ED today for support due to her severe alcoholism. Katiana has been accepted to a residential program with [facility] in [place] in the am, Clinical Business Applications Manager is Alba. Pt is experiencing anxiety and fatigue. Detox is not an option at this time. Harm reduction strategies were discussed and Optical Mechanic Apprentice support services was provided.
[2022-10-06] MEDS: chlordiazePOXIDE HCl 25 MG CAPSULE 50 MG PO (20:32)
--- NOTE | 2022-10-06 21:47 | PC.NURSE ---
pt sleeping on stretcher in 19H, respirations are even and unlabored, no apparent distress
[2022-10-07 00:48] VITALS: BP 131/69; PULSE 110; RESP 19; TEMP 36.7; O2SAT 92
--- NOTE | 2022-10-07 02:29 | ED.GENADULT ---
HPI - General Adult General Chief complaint: ETOH/Substance Use Stated complaint: Psych eval Time Seen by Provider: 10/06/22 18:54 Source: patient Mode of arrival: ambulatory Limitations: no limitations History of Present Illness HPI narrative: 56 yold female presents to the ED to sleep for the night so than she can go residential progam in the morning where she have resources to help with alcoholism and a place to live. patient denies any suicdl/homicidal ideation. patient states no physical complatins. Related Data Home Medications Medication Instructions Recorded Confirmed minerals 1 tab PO QAM 07/08/22 07/28/22 quetiapine 50 mg tablet 150 mg PO BEDTIME 07/08/22 07/28/22 trazodone 50 mg tablet 50 mg PO BEDTIME PRN Sleep 07/12/22 07/28/22 escitalopram oxalate 20 mg tablet 1 tab PO DAILY 07/28/22 07/28/22 Previous Rx's Medication Instructions Recorded folic acid 1 mg tablet 1 tab PO DAILY 30 days #30 tabs 05/24/22 gabapentin 300 mg capsule 300 mg PO TID 30 days #90 caps 05/24/22 hydroxyzine HCl 50 mg tablet 50 mg PO BID PRN Anxiety 30 days 05/24/22 #60 tabs lidocaine 5 % topical patch 1 patch transdermal DAILY 30 days 05/24/22 #30 ea thiamine HCl (vitamin B1) 100 mg 100 mg PO DAILY 30 days #30 tabs 05/24/22 tablet Allergies Allergy/AdvReac Type Severity Reaction Status Date / Time No Known Allergies Allergy Verified 08/02/22 18:30 [No Known Allergies*] Review of Systems Review of Systems: Wants a place to sleep for residential program Yes all other systems are reviewed and are negative PMFSH Past Medical History Medical History Depression ETOH abuse Mood disorder as late effect of traumatic brain injury TBI (traumatic brain injury) Social History Social History Household Members: Other Household Members Other:: Reports has been [employer] surfing. Housing: Homeless Do you presently have visiting nurse or other home services: No Alcohol intake: current Alcohol intake frequency: 0-2 drinks per day Patient Tobacco Use Status: Never used Tobacco e-Cigarette/Vaping Use: Never Used Second Hand Smoke Exposure: No Substance Use Type: Caffiene Advance Directives: Yes Advance Directives on File: Yes Advance Directives Date on File: 05/06/21 service: No Sexual orientation: Straight/Heterosexual Physical Exam ED Vital Signs: Vital Signs - 24 hr 10/06/22 16:53 10/07/22 00:48 10/07/22 02:42 Temperature 98.3 F 98.1 F 97.4 F Pulse Rate 123 H 110 H 120 H Respiratory Rate 18 19 20 Blood Pressure 134/99 H 131/69 146/78 H Pulse Oximetry 94 92 95 Oxygen Delivery Method Room Air Room Air Room Air BMI result Body Mass Index 30.2 Const General: cooperative, healthy appearing, comfortable, no acute distress, well developed, alert, awake and Physically active Orientation/consciousness: oriented to person, oriented to place, oriented to time and patient oriented x3 HENMT Head: Yes normal to inspection, Yes No palpable skull fracture present, Yes normocephalic, Yes atraumatic and No abrasion Eyes General: appearance normal, both eyes and all related structures Neck Neck: Yes normal visual inspection, Yes full ROM, Yes no lymphadenopathy, Yes no meningeal signs, Yes trachea midline, Yes supple, No anterior neck swelling and No tender Chest Chest palpation & inspection: normal inspection of the chest and normal palpation of entire chest wall Resp Effort & Inspection: normal respiratory effort and able to speak in complete sentences Auscultation: clear to auscultation bilaterally Cardio Jugular venous distension: no JVD Heart sounds: S1 normal heart sound present and S2 normal heart sound present GI Inspection: Yes normal to inspection and No abdominal wall ecchymosis Palpation (GI): Soft to palpation, not firm, nontender, no guarding and not rigid General: No CVA tenderness and Yes no CVA tenderness Back/Spine/Pelvis Back: no CVA tenderness, No CVA tenderness and No back tenderness Skin General skin exam: no rashes or lesions noted and elasticity normal Neuro General: oriented to person, oriented to place, oriented to time, patient oriented x3, gait normal, tone normal, moves all extremities, Normal light touch and pain sensation, no meningeal signs and no focal motor deficits Extrem General: Yes normal to inspection and Yes full ROM Psych Appearance: grossly normal, well kempt and not disheveled Course Course Course Narrative: Need of counseling evaluated patient. Reevaluation(s) Reevaluation #1: The tox counselor evaluated patient and states patient does not need detox bed because she is going to residential program in the morning and request patient stay overnight so care team could given transport to residential program in [facility]. patient sleeping comfortably in bed. librium ordered due to patient last drink was 2 days ago. O2 saturation of 94 and 92% because patient was lying down flat sleeping on the bed. When patient coughs O2 sat 95. EKG ordered to make sure it just sinus tachycardia and not AFib from not drinking alcohol. Holiday heart. Time: 02:47 Reevaluation #2: EKG shows sinus tachycardia. patient sleeping comfortably in bed. No tremors. Time: 15:08 Medications Administered Discontinued Medications Generic Name Dose Route Start Last Admin Trade Name Freq PRN Reason Stop Dose Admin Chlordiazepoxide HCl 50 mg 10/06/22 19:46 10/06/22 20:32 Chlordiazepoxide Hcl 25 Mg Capsule PO 10/06/22 19:47 50 mg ONCE ONE Administration Medical Decision Making Differential Diagnosis patient waiting in the ED to sleep so she could have transport by care team to residential [facility] in the morning Admission/Observation not needed Lab Data MDM Lab Attestation statement: I reviewed the patient's lab results. 10/06/22 17:16 10/06/22 17:16 Labs: Lab Results 10/06/22 10/06/22 10/06/22 Range/Units 17:16 17:16 17:16 WBC 10.3 (4.8-10.8) X10*3/uL RBC 4.03 L (4.20-5.50) X10*6/uL Hgb 11.9 L (12.0-16.0) g/dl Hct 36.9 L (37.0-47.0) % MCV 91.6 (80.0-98.0) fL MCH 29.5 (27.0-33.0) pg MCHC 32.2 (31.0-35.0) g/dl RDW 14.6 (11.0-16.0) % Plt Count 386 (160-400) X10*3/uL MPV 9.0 L (9.4-12.3) fL Immature Gran % (Auto) 0.1 (0.0-0.4) % Neut % (Auto) 44.0 L (45-73) % Lymph % (Auto) 48.0 H (20-40) % Edwards % (Auto) 6.0 (2-11) % Eos % (Auto) 1.1 (0-4) % Baso % (Auto) 0.8 (0-2) % Lymph # (Auto) 5.0 H (1.2-4.9) X10*3/uL Edwards # (Auto) 0.6 (0.1-1.2) X10*3/uL Eos # (Auto) 0.1 (0.0-0.4) X10*3/uL Baso # (Auto) 0.1 (0.0-0.2) X10*3/uL Abs Immat Gran (auto) 0.01 (0.00-0.03) X10*3/uL Absolute Neuts (auto) 4.6 (2.0-8.3) x10*3/uL Absolute Nucleated RBC 0.000 (0.0-0.012) X10*3/uL Nucleated RBC % (auto) 0.0 (0.0-0.2) /100WBC PT 11.6 (10.0-13.1) SEC INR 1.0 (0.9-1.1) Sodium 143 (135-145) mmol/L Potassium 3.4 (3.3-5.1) mmol/L Chloride 106 (96-108) mmol/L Carbon Dioxide 18 L (22-29) mmol/L Anion Gap 22 H (12-20) BUN 16 (9-16) mg/dL Creatinine 0.91 (0.5-1.4) mg/dL Estim Creat Clear Calc 63.8 Estimated GFR > 60 Random Glucose 132 H (60-115) mg/dL Calcium 9.7 (8.4-10.2) mg/dL Magnesium 1.8 (1.6-2.6) mg/dL Total Bilirubin 0.4 (0.0-1.0) mg/dL AST 19 (5-31) U/L ALT 17 (0-31) U/L Alkaline Phosphatase 78 (39-117) U/L Total Protein 8.3 H (6.5-8.0) g/dL Albumin 4.3 (3.5-5.0) g/dL Lipase 37 (8-78) U/L Ethyl Alcohol 249 mg/dL Influenza Type A (PCR) (Negative) Influenza Type B (PCR) (Negative) RSV RNA Qual (PCR) (Negative) SARS-CoV-2 RNA (RT-PCR) (Negative) 10/06/22 Range/Units 17:16 WBC (4.8-10.8) X10*3/uL RBC (4.20-5.50) X10*6/uL Hgb (12.0-16.0) g/dl Hct (37.0-47.0) % MCV (80.0-98.0) fL MCH (27.0-33.0) pg MCHC (31.0-35.0) g/dl RDW (11.0-16.0) % Plt Count (160-400) X10*3/uL MPV (9.4-12.3) fL Immature Gran % (Auto) (0.0-0.4) % Neut % (Auto) (45-73) % Lymph % (Auto) (20-40) % Edwards % (Auto) (2-11) % Eos % (Auto) (0-4) % Baso % (Auto) (0-2) % Lymph # (Auto) (1.2-4.9) X10*3/uL Edwards # (Auto) (0.1-1.2) X10*3/uL Eos # (Auto) (0.0-0.4) X10*3/uL Baso # (Auto) (0.0-0.2) X10*3/uL Abs Immat Gran (auto) (0.00-0.03) X10*3/uL Absolute Neuts (auto) (2.0-8.3) x10*3/uL Absolute Nucleated RBC (0.0-0.012) X10*3/uL Nucleated RBC % (auto) (0.0-0.2) /100WBC PT (10.0-13.1) SEC INR (0.9-1.1) Sodium (135-145) mmol/L Potassium (3.3-5.1) mmol/L Chloride (96-108) mmol/L Carbon Dioxide (22-29) mmol/L Anion Gap (12-20) BUN (9-16) mg/dL Creatinine (0.5-1.4) mg/dL Estim Creat Clear Calc Estimated GFR Random Glucose (60-115) mg/dL Calcium (8.4-10.2) mg/dL Magnesium (1.6-2.6) mg/dL Total Bilirubin (0.0-1.0) mg/dL AST (5-31) U/L ALT (0-31) U/L Alkaline Phosphatase (39-117) U/L Total Protein (6.5-8.0) g/dL Albumin (3.5-5.0) g/dL Lipase (8-78) U/L Ethyl Alcohol mg/dL Influenza Type A (PCR) NEGATIVE (Negative) Influenza Type B (PCR) NEGATIVE (Negative) RSV RNA Qual (PCR) NEGATIVE (Negative) SARS-CoV-2 RNA (RT-PCR) NEGATIVE (Negative) Independent Interpretation I performed an independent interpretation of an: EKG Interpretation: Sinus tachycardia. Ventricular rate 107. [place] interval 162. QRS 76. QTC 480. Negative STEMI Chronic Conditions Patient?s care impacted by: Other Alcoholishilsm Social Determinants Patient?s care significantly limited by Social Determinants of Health including: Inadequate housing and Alcoholism and drug addiction in family Will stay in ED overnight for care team consult to provide transport to the residential area Discharge Plan Discharge Clinical Impression: Alcohol abuse Patient Disposition: Home, Self-Care Prescriptions: No Action thiamine HCl (vitamin B1) 100 mg Tablet 100 mg PO DAILY 30 Days Qty: 30 0RF hydroxyzine HCl 50 mg Tablet 50 mg PO BID PRN (Reason: Anxiety) 30 Days Qty: 60 0RF lidocaine 5 % Adhesive Patch,Medicated 1 patch transdermal DAILY 30 Days Qty: 30 0RF gabapentin 300 mg Capsule 300 mg PO TID 30 Days Qty: 90 0RF folic acid 1 mg tablet 1 tab PO DAILY 30 Days Qty: 30 0RF minerals Tablet 1 tab PO QAM quetiapine 50 mg tablet 150 mg PO BEDTIME trazodone 50 mg Tablet 50 mg PO BEDTIME PRN (Reason: Sleep) escitalopram oxalate 20 mg tablet 1 tab PO DAILY Interventions: Hood-Suicide Risk Severity Scale Last Done: 10/06/22 20:32
[2022-10-07 02:42] VITALS: BP 146/78; PULSE 120; RESP 20; TEMP 36.3; O2SAT 95
--- NOTE | 2022-10-07 02:46 | ECG_ITS ---
Test Reason : tachycada Blood Pressure : / mmHG Vent. Rate : 107 BPM Atrial Rate : 107 BPM P-R Int : 162 ms QRS Dur : 076 ms QT Int : 360 ms P-R-T Axes : 074 045 044 degrees QTc Int : 480 ms Sinus tachycardia Otherwise normal ECG When compared with ECG of 06-OCT-2022 17:00, No significant change was found Referred By: Mani Estevez Electronically Signed By:Sumit Suazo
[2022-10-07 05:31] VITALS: BP 142/80; PULSE 118; RESP 18; O2SAT 95
[2022-10-07 07:37] VITALS: BP 136/82; PULSE 110; RESP 16; O2SAT 96
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
--- NOTE | 2022-10-07 11:02 | MHC.RECOVRN ---
Discussed options with pt. Pt choosing to dc and follow up with facilities from the community. RN aware.
== END 2022-10-07 11:38 | disposition home or self-care (01) ==
PROVIDERS: Physician Assistant Medical; Emergency Provider Emergency Medicine; PCP Hospitalist
DX: F10.129 Alcohol abuse with intoxication, unspecified (principal); R00.0 Tachycardia, unspecified; Y90.8 Blood alcohol level of 240 mg/100 ml or more; Z71.41 Alcohol abuse counseling and surveillance of alcoholic; Z79.899 Other long term (current) drug therapy
CPT/HCPCS: 0241U; 80053; 82077; 83690; 83735; 85025; 85610; 93005; 99284; 99285

== ENCOUNTER 2022-10-08 20:25 | Emergency (ER) | payer OTHER, SELFPAY ==
[2022-10-08 20:29] VITALS: BMI 31.1
[2022-10-08 20:50] VITALS: BP 125/76; PULSE 109; RESP 16; TEMP 36.8; O2SAT 96
--- NOTE | 2022-10-08 21:12 | ED_ITS ---
HPI - Alcohol General Chief Complaint: ETOH/Substance Use Stated Complaint: etoh SI Time Seen by Provider: 10/08/22 20:47 Source: patient and EMS Mode of arrival: EMS Limitations: no limitations History of Present Illness HPI narrative: 56-year-old female with a history of anxiety, depression, and chronic alcoholism presenting after thoughts of harming herself while intoxicated today. Patient states that she has never had these thoughts before and is scared for her own safety. Patient said she had 6-7 dips this morning in her last drink was around noon. She is currently taking Vistaril and Zoloft for her anxiety and depression. Pt is seeking detox. Patient denies HI, visual, auditory, tactile hallucinations, tobacco use, drug use. Patient is a reliable historian and denies LOC, dizziness, weakness, chest pain, shortness of breath, nausea, vomiting, fever, chills. No medical complaints at this time. No falls or reported trauma. Related Data Home Medications Medication Instructions Recorded Confirmed quetiapine 50 mg tablet 150 mg PO BEDTIME 07/08/22 10/08/22 propranolol 10 mg tablet 1 tab PO TID 10/07/22 10/08/22 sertraline 25 mg tablet 1 tab PO DAILY 10/08/22 10/08/22 Previous Rx's Medication Instructions Recorded thiamine HCl (vitamin B1) 100 mg 100 mg PO DAILY 30 days #30 tabs 05/24/22 tablet Allergies Allergy/AdvReac Type Severity Reaction Status Date / Time No Known Allergies Allergy Verified 08/02/22 18:30 [No Known Allergies*] Review of Systems Review of Systems: Constitutional : No Weight loss, No Fever, No Chills, No Fatigue, No Malaise ENT/Mouth : No sore throat, No Rhinorrhea Eyes: No Eye Pain, No Swelling, No Redness Cardiovascular : No Chest Pain, No SOB, No Dyspnea on Exertion, No Orthopnea, No Edema, No Palpitations Respiratory : No Cough, No Sputum, No Wheezing Gastrointestinal : No Nausea, No Vomiting, No Diarrhea, No Constipation, No abdominal Pain, No Hematochezia, No Melena Genitourinary : No Dysuria, No Urinary Frequency, No Hematuria, Musculoskeletal : No joint pain, No Myalgias, No Joint Swelling Skin : No Skin Lesions, No rash Neuro : No Weakness, No Numbness, No Dizziness, + Headache Psych : + Anxiety/Panic, + Depression, + SI All other systems reviewed and are negative [facility] Past Medical History Attestation statement: The following information was validated with the patient. Source: old records reviewed and nursing notes reviewed Medical History Depression ETOH abuse Mood disorder as late effect of traumatic brain injury TBI (traumatic brain injury) Social History Social History Household Members: Other Household Members Other:: Reports has been [employer]. Housing: Homeless Do you presently have visiting nurse or other home services: No Alcohol intake: current Alcohol intake frequency: 0-2 drinks per day Patient Tobacco Use Status: Never used Tobacco e-Cigarette/Vaping Use: Never Used Second Hand Smoke Exposure: No Substance Use Type: Caffiene Advance Directives: Yes Advance Directives on File: Yes Advance Directives Date on File: 05/06/21 service: No Sexual orientation: Straight/Heterosexual Physical Exam ED Vital Signs: Vital Signs - 24 hr 10/08/22 20:50 Temperature 98.2 F Pulse Rate 109 H Respiratory Rate 16 Blood Pressure 125/76 Pulse Oximetry 96 Oxygen Delivery Method Room Air BMI result Body Mass Index 31.1 Appearance: Alert.? Oriented X3.? No acute distress.? Head: Normocephalic, atraumatic, no step-offs or deformities Eyes: Pupils equal, round and reactive to light.? Neck: Normal inspection.? Neck supple.? CVS: Normal heart rate and rhythm.? Pulses normal.? Respiratory: No respiratory distress.? Breath sounds normal.? Abdomen: Soft and nontender.? Skin: Skin warm and dry.? Normal skin color.? Normal skin turgor.? Extremities: No lower extremity edema.? No calf ttp. 5/5 strength to bilateral upper and lower extremities Back: No midline tenderness, no C-spine tenderness, full range of motion Neuro: Oriented X 3.? No motor deficit.? No sensory deficit. CN 2-12 intact . Ambulating with steady gait normal coordination. Normal rapid alternating movements. Course Reevaluation(s) Reevaluation #1: CBC with slight normocytic anemia that appears to be around patient's baseline. Chemistry with no acute electrolyte abnormalities requiring acute intervention. UA is noted to have small amount of leukocyte esterases, negative nitrates there is large amount of squamous epithelial cells and 4+ bacteria therefore I suspect contamination. Patient to urine appears to be around her baseline when compared to previous. Patient without urinary symptoms will not treat for UTI. Patient's salicylates, acetaminophen negative. Ethanol level 221 consistent wi th acute alcohol intoxication. Patient's urine toxicology is positive for benzodiazepines. At this time patient will be placed into observation to allow more time to be evaluated by the care team. At time observation was started patient common cooperative no acute distress will continue to monitor. Time: 00:48 Medical Decision Making Medical Decision Making [facility] Narrative: 56-year-old female with chronic alcoholism, anxiety, and depression brought in by EMS for thoughts of harming herself while intoxicated earlier today. Denies HI, hallucinations, other substance use. Physical examination benign. Neuro nonfocal. GCS of 15, NIH stroke scale 0. Differentials include alcohol withdrawal versus electrolyte abnormalities versus opiate intoxication vs delirium . I do not suspect intracranial hemorrhage, stroke, headache likely secondary to alcohol use. Plan: labs, detox Differential Diagnosis Differential Diagnoses: The differential diagnosis associated with the presentation includes Alcohol withdrawal vs electrolyte abnormalities vs opiate intoxication vs delirium. I do not suspect intracranial hemorrhage, stroke, headache likely secondary to alcohol use. Admission/Observation Consideration of admission/observation: Escalation of care including admission/observation considered Likely will not require medical admission. Lab Data [facility] Lab Attestation statement: I reviewed the patient's lab results. 10/08/22 23:24 10/08/22 23:24 Labs: Lab Results 10/08/22 10/08/22 10/08/22 Range/Units 20:56 21:08 21:31 WBC (4.8-10.8) X10*3/uL RBC (4.20-5.50) X10*6/uL Hgb (12.0-16.0) g/dl Hct (37.0-47.0) % MCV (80.0-98.0) fL MCH (27.0-33.0) pg MCHC (31.0-35.0) g/dl RDW (11.0-16.0) % Plt Count (160-400) X10*3/uL MPV (9.4-12.3) fL Immature Gran % (Auto) (0.0-0.4) % Neut % (Auto) (45-73) % Lymph % (Auto) (20-40) % Talbot % (Auto) (2-11) % Eos % (Auto) (0-4) % Baso % (Auto) (0-2) % Lymph # (Auto) (1.2-4.9) X10*3/uL Talbot # (Auto) (0.1-1.2) X10*3/uL Eos # (Auto) (0.0-0.4) X10*3/uL Baso # (Auto) (0.0-0.2) X10*3/uL Abs Immat Gran (auto) (0.00-0.03) X10*3/uL Absolute Neuts (auto) (2.0-8.3) x10*3/uL Absolute Nucleated RBC (0.0-0.012) X10*3/uL Nucleated RBC % (auto) (0.0-0.2) /100WBC Smear Tech's Comments Sodium (135-145) mmol/L Potassium (3.3-5.1) mmol/L Chloride (96-108) mmol/L Carbon Dioxide (22-29) mmol/L Anion Gap (12-20) BUN (9-16) mg/dL Creatinine (0.5-1.4) mg/dL Estim Creat Clear Calc Estimated GFR Random Glucose (60-115) mg/dL Calcium (8.4-10.2) mg/dL Magnesium (1.6-2.6) mg/dL Total Bilirubin (0.0-1.0) mg/dL AST (5-31) U/L ALT (0-31) U/L Alkaline Phosphatase (39-117) U/L Total Protein (6.5-8.0) g/dL Albumin (3.5-5.0) g/dL Urine Color Yellow Urine Appearance Cloudy Urine pH 5.5 (5.0-9.0) Ur Specific Hudson 1.020 (1.005-1.025) Urine Protein 30 (1+) H (Neg-Trace) mg/dL Urine Glucose (UA) Negative (Negative) mg/dL Urine Ketones Negative (Negative) mg/dL Urine Blood Negative (Negative) Urine Nitrite Negative (Negative) Ur Leukocyte Esterase Small (1+) H (Negative) Urine RBC 0-2 (0-2) /HPF Urine WBC 11-20 H (0-5) /HPF Ur Squamous Epith Cells 6-10 (0-2) /HPF Urine Bacteria 4+ (None Seen) Hyaline Casts 0-2 (0-2) /LPF Salicylates (15-30) mg/dL Urine Opiates Screen Not Detected (Not Detect) Urine Fentanyl Screen Not Detected (Not Detect) Acetaminophen (<30) mcg/mL Ur Barbiturates Screen Not Detected (Not Detect) Ur Phencyclidine Scrn Not Detected (Not Detect) Ur Amphetamines Screen Not Detected (Not Detect) U Benzodiazepines Scrn POSITIVE H (Not Detect) Urine Cocaine Screen Not Detected (Not Detect) U Marijuana (THC) Screen Not Detected (Not Detect) Ethyl Alcohol mg/dL COVID-19 (GARCIA) Negative (Negative) COVID-19 Clin Com See Note 10/08/22 10/08/22 Range/Units 23:24 23:24 WBC 5.9 (4.8-10.8) X10*3/uL RBC 3.40 L (4.20-5.50) X10*6/uL Hgb 10.1 L (12.0-16.0) g/dl Hct 30.8 L (37.0-47.0) % MCV 90.6 (80.0-98.0) fL MCH 29.7 (27.0-33.0) pg MCHC 32.8 (31.0-35.0) g/dl RDW 14.7 (11.0-16.0) % Plt Count 266 D (160-400) X10*3/uL MPV 9.4 (9.4-12.3) fL Immature Gran % (Auto) 0.0 (0.0-0.4) % Neut % (Auto) 24.6 L (45-73) % Lymph % (Auto) 64.4 H (20-40) % Talbot % (Auto) 7.7 (2-11) % Eos % (Auto) 2.6 (0-4) % Baso % (Auto) 0.7 (0-2) % Lymph # (Auto) 3.8 (1.2-4.9) X10*3/uL Talbot # (Auto) 0.5 (0.1-1.2) X10*3/uL Eos # (Auto) 0.2 (0.0-0.4) X10*3/uL Baso # (Auto) 0.0 (0.0-0.2) X10*3/uL Abs Immat Gran (auto) 0.00 (0.00-0.03) X10*3/uL Absolute Neuts (auto) 1.4 L (2.0-8.3) x10*3/uL Absolute Nucleated RBC 0.000 (0.0-0.012) X10*3/uL Nucleated RBC % (auto) 0.0 (0.0-0.2) /100WBC Smear Tech's Comments VERIFIED Sodium 146 H (135-145) mmol/L Potassium 3.3 (3.3-5.1) mmol/L Chloride 111 H (96-108) mmol/L Carbon Dioxide 21 L (22-29) mmol/L Anion Gap 17 (12-20) BUN 16 (9-16) mg/dL Creatinine 0.82 (0.5-1.4) mg/dL Estim Creat Clear Calc 69.2 Estimated GFR > 60 Random Glucose 102 (60-115) mg/dL Calcium 8.6 D (8.4-10.2) mg/dL Magnesium 1.6 (1.6-2.6) mg/dL Total Bilirubin 0.3 (0.0-1.0) mg/dL AST 16 (5-31) U/L ALT 12 (0-31) U/L Alkaline Phosphatase 69 (39-117) U/L Total Protein 6.8 (6.5-8.0) g/dL Albumin 3.6 (3.5-5.0) g/dL Urine Color Urine Appearance Urine pH (5.0-9.0) Ur Specific Hudson (1.005-1.025) Urine Protein (Neg-Trace) mg/dL Urine Glucose (UA) (Negative) mg/dL Urine Ketones (Negative) mg/dL Urine Blood (Negative) Urine Nitrite (Negative) Ur Leukocyte Esterase (Negative) Urine RBC (0-2) /HPF Urine WBC (0-5) /HPF Ur Squamous Epith Cells (0-2) /HPF Urine Bacteria (None Seen) Hyaline Casts (0-2) /LPF Salicylates < 5.0 L (15-30) mg/dL Urine Opiates Screen (Not Detect) Urine Fentanyl Screen (Not Detect) Acetaminophen < 17 (<30) mcg/mL Ur Barbiturates Screen (Not Detect) Ur Phencyclidine Scrn (Not Detect) Ur Amphetamines Screen (Not Detect) U Benzodiazepines Scrn (Not Detect) Urine Cocaine Screen (Not Detect) U Marijuana (THC) Screen (Not Detect) Ethyl Alcohol 221 mg/dL COVID-19 (GARCIA) (Negative) COVID-19 Clin Com Core Measures AMI core measures followed: Yes Measure exclusions: not indicated Critical Care Time Critical Care Time Critical Care Time: No Discharge Plan Discharge Clinical Impression: Depression, Alcoholic intoxication, Depression with suicidal ideation Patient Disposition: Still a Patient Prescriptions: No Action thiamine HCl (vitamin B1) 100 mg Tablet 100 mg PO DAILY 30 Days Qty: 30 0RF propranolol 10 mg tablet 1 tab PO TID quetiapine 50 mg tablet 150 mg PO BEDTIME sertraline 25 mg tablet 1 tab PO DAILY Interventions: [place]-Suicide Risk Severity Scale Last Done: 10/08/22 20:34
[2022-10-08 21:17] LABS: COVID-19 Test Negative (Negative); IDNOW Serial# BCCEAD1C
[2022-10-08 21:32] LABS: Amphetamine Screen Urine Not Detected (Not Detect); Barbiturates, Urine Not Detected (Not Detect); Benzodiazepines Screen Urine POSITIVE (Not Detect); Cannabinoid Screen Urine Not Detected (Not Detect); Cocaine Screen Urine Not Detected (Not Detect); Fentanyl, urine Not Detected (Not Detect); Opiate Screen Urine Not Detected (Not Detect); Phencyclidine Screen Urine Not Detected (Not Detect)
[2022-10-08 21:36] LABS: Appearance Urine Cloudy; Color Urine Yellow; Glucose Urine UA Negative (Negative); Leukocyte Esterase Urine Small (1+) (Negative); Nitrite Urine Negative (Negative); PH 5.5 (5.0-9.0); UMIC TRIGGER UA YES; Urine Blood Negative (Negative); Urine Ketones Negative (Negative); Urine Protein 30 (1+) mg/dL (Neg-Trace)
[2022-10-08 21:41] LABS: Bacteria Urine 4+ (None Seen); Hyaline Casts Urine 0-2 /LPF (0-2); RBC Urine 0-2 /HPF (0-2)
[2022-10-08 23:30] LABS: Basophils Percent Auto 0.7 % (0-2); Eosinophils Absolute Auto 0.2 X10*3/uL (0.0-0.4); Eosinophils Percent Auto 2.6 % (0-4); Hematocrit 30.8 % (37.0-47.0); Hemoglobin 10.1 g/dl (12.0-16.0); Lymphocytes Absolute Auto 3.8 X10*3/uL (1.2-4.9); Lymphocytes Percent Auto 64.4 % (20-40); MANUAL DIFF FLAG SCAN; Mean Corpuscular HGB Conc 32.8 g/dl (31.0-35.0); Mean Corpuscular Hemoglobin 29.7 pg (27.0-33.0); Mean Corpuscular Volume 90.6 fL (80.0-98.0); Mean Platelet Volume 9.4 fL (9.4-12.3); Monocytes Absolute Auto 0.5 X10*3/uL (0.1-1.2); Monocytes Percent Auto 7.7 % (2-11); Neutrophils Absolute Auto 1.4 x10*3/uL (2.0-8.3); Neutrophils Percent Auto 24.6 % (45-73); Platelet Count 266 X10*3/uL (160-400); Red Cell Distribution Width 14.7 % (11.0-16.0); SCAN SMEAR FLAG 1; White Blood Count 5.9 X10*3/uL (4.8-10.8)
[2022-10-08 23:47] LABS: Acetaminophen LAB < 17 mcg/mL (<30); Alanine Aminotransferase 12 U/L (0-31); Albumin Level 3.6 g/dL (3.5-5.0); Alkaline Phosphatase 69 U/L (39-117); Anion Gap 17 (12-20); Aspartate Amino Transferase 16 U/L (5-31); Bilirubin Total 0.3 mg/dL (0.0-1.0); Blood Urea Nitrogen 16 mg/dL (9-16); Calcium 8.6 mg/dL (8.4-10.2); Carbon Dioxide 21 mmol/L (22-29); Chloride 111 mmol/L (96-108); Creatinine Clr Calc Pharmacy 69.2; Estimated Glomerular Filt Rate > 60; Ethanol 221 mg/dL; Glucose Random 102 mg/dL (60-115); Magnesium 1.6 mg/dL (1.6-2.6); Potassium 3.3 mmol/L (3.3-5.1); Salicylate < 5.0 mg/dL (15-30); Sodium 146 mmol/L (135-145); Total Protein 6.8 g/dL (6.5-8.0)
[2022-10-08 23:52] LABS: SLIDE REVIEW VERIFIED
[2022-10-09 05:12] VITALS: BP 132/78; PULSE 101; RESP 16; TEMP 36.7; O2SAT 95
--- NOTE | 2022-10-09 05:59 | PC.NURSE ---
Patient slept through the night, no distress observed/reported, behavior appropriate and non concerning, patient was assessed by care team, disposition is recovery team referral for detox help, med rec completed/pending provider's approval, asymptomatic of ETOH withdrawal at this time, VSS, will continue to monitor.
[2022-10-09 08:15] VITALS: BP 140/87; PULSE 96; RESP 16; TEMP 36.7; O2SAT 96
[2022-10-09] MEDS: Sertraline HCL 25 MG TABLET PO (08:15)
[2022-10-09] MEDS: Thiamine HCL 100 MG TABLET PO (08:15)
[2022-10-09] MEDS: Propranolol HCL 10 MG TABLET PO (08:15)
--- NOTE | 2022-10-09 09:28 | PC.NURSE ---
Sandra by recovery to d/c.
--- NOTE | 2022-10-09 10:19 | MHC.RECOVRN ---
Met with pt in [facility] to discuss ATS. 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 Pt reports she needs to call [employer] to obtain her new ID number and then will be able to call [facility]. T/w offered to make phone calls while in the hospital to coordinate and refer, pt declines. Pt would like to dc to follow up with trampoline team coach outpatient. RN aware.
== END 2022-10-09 09:56 | disposition home or self-care (01) ==
PROVIDERS: Physician Assistant; Student in an Organized Health Care Education/Training Program; Emergency Provider Internal Medicine; PCP Internal Medicine
DX: F10.129 Alcohol abuse with intoxication, unspecified (principal); F33.1 Major depressive disorder, recurrent, moderate; R45.851 Suicidal ideations; Y90.7 Blood alcohol level of 200-239 mg/100 ml; Z20.822 Contact with and (suspected) exposure to COVID-19; Z20.828 Contact with and (suspected) exposure to other viral communicable diseases; Z79.899 Other long term (current) drug therapy
CPT/HCPCS: 36415; 80053; 80143; 80179; 80307; 81001; 82077; 83735; 85025; 87635; 99284; 99285; S9485

== ENCOUNTER 2022-10-15 12:30 | Inpatient (IN) | payer OTHER, SELFPAY ==
[2022-10-15 12:47] VITALS: BP 120/60; BP 182/96; PULSE 110; PULSE 128; RESP 20; TEMP 36.9; O2SAT 95; BMI 32.1
--- NOTE | 2022-10-15 12:50 | PC.NURSE ---
Pt swearing and uncooperative at this time, not answering questions at this time
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
--- NOTE | 2022-10-15 13:07 | PC.NURSE ---
Membership Secretary Matias talking to pt, unable to obtain full statement at this time d/t ETOH. Pt requesting to move to POD, moved to BH4. Plan to reassess pt c/o SA when not intoxicated and if pt agreeable to SA kit
[2022-10-15 17:31] LABS: COVID-19 Test Negative (Negative); IDNOW Serial# 16C4AD1C
[2022-10-15 21:06] VITALS: BP 135/86; PULSE 106; RESP 20; TEMP 37.3; O2SAT 95
[2022-10-15 22:38] LABS: Appearance Urine Clear; Color Urine Yellow; Glucose Urine UA Negative (Negative); Leukocyte Esterase Urine Small (1+) (Negative); Nitrite Urine Positive (Negative); PH 6.5 (5.0-9.0); Specific Gravity - Urine 1.015 (1.005-1.025); UMIC TRIGGER UA YES; Urine Blood Negative (Negative); Urine Ketones 15 mg/dL (Negative); Urine Protein Negative (Neg-Trace)
[2022-10-15 22:49] LABS: Bacteria Urine 2+ (None Seen); Hyaline Casts Urine 0-2 /LPF (0-2); RBC Urine 0-2 /HPF (0-2); Squamous Epithelial Cell Urine 0-2 /HPF (0-2)
[2022-10-15 22:53] LABS: Amphetamine Screen Urine Not Detected (Not Detect); Barbiturates, Urine Not Detected (Not Detect); Benzodiazepines Screen Urine POSITIVE (Not Detect); Cannabinoid Screen Urine Not Detected (Not Detect); Cocaine Screen Urine Not Detected (Not Detect); Fentanyl, urine Not Detected (Not Detect); Opiate Screen Urine Not Detected (Not Detect); Phencyclidine Screen Urine Not Detected (Not Detect)
[2022-10-15 23:09] VITALS: BP 122/77; PULSE 102; RESP 18; TEMP 36.8; O2SAT 96
[2022-10-15] MEDS: LORazepam 1 MG TABLET PO (23:17)
[2022-10-16 00:08] LABS: MANUAL DIFF FLAG NO
[2022-10-16 00:09] LABS: Basophils Percent Auto 0.5 % (0-2); Eosinophils Absolute Auto 0.2 X10*3/uL (0.0-0.4); Eosinophils Percent Auto 3.2 % (0-4); Hematocrit 32.8 % (37.0-47.0); Hemoglobin 10.9 g/dl (12.0-16.0); Imm Gran Abs Auto 0.01 X10*3/uL (0.00-0.03); Imm Gran Pct Auto 0.2 % (0.0-0.4); Lymphocytes Absolute Auto 2.5 X10*3/uL (1.2-4.9); Lymphocytes Percent Auto 43.7 % (20-40); Mean Corpuscular HGB Conc 33.2 g/dl (31.0-35.0); Mean Corpuscular Volume 90.4 fL (80.0-98.0); Monocytes Absolute Auto 0.5 X10*3/uL (0.1-1.2); Monocytes Percent Auto 8.7 % (2-11); Neutrophils Absolute Auto 2.5 x10*3/uL (2.0-8.3); Neutrophils Percent Auto 43.7 % (45-73); Platelet Count 208 X10*3/uL (160-400); Red Blood Count 3.63 X10*6/uL (4.20-5.50); Red Cell Distribution Width 16.3 % (11.0-16.0); White Blood Count 5.7 X10*3/uL (4.8-10.8)
[2022-10-16 00:43] LABS: Alanine Aminotransferase 36 U/L (0-31); Albumin Level 3.7 g/dL (3.5-5.0); Alkaline Phosphatase 77 U/L (39-117); Anion Gap 17 (12-20); Aspartate Amino Transferase 52 U/L (5-31); Bilirubin Total 0.6 mg/dL (0.0-1.0); Blood Urea Nitrogen 8 mg/dL (9-16); Calcium 8.6 mg/dL (8.4-10.2); Carbon Dioxide 19 mmol/L (22-29); Chloride 103 mmol/L (96-108); Creatinine Clr Calc Pharmacy 85.9; Estimated Glomerular Filt Rate > 60; Ethanol 12 mg/dL; Glucose Random 84 mg/dL (60-115); Magnesium 1.4 mg/dL (1.6-2.6); Sodium 135 mmol/L (135-145)
[2022-10-16] MEDS: Magnesium Oxide 400 MG TABLET 800 MG PO ×2 (01:07→08:23)
[2022-10-16] MEDS: Nitrofurantoin Monohyd/M-Cryst 100 MG CAPSULE PO ×3 (01:08→20:10)
[2022-10-16] MEDS: LORazepam 1 MG TABLET 2 MG PO ×4 (03:33→20:10)
--- NOTE | 2022-10-16 05:08 | PC.NURSE ---
Patient is currently in bed appears sleeping, no distress observed/reported at this time, @ 2314 Ativan 1 mg po administered for comfort with + effect, Mg 1.4/MgO2 800 mg administered at 0107, + UTI Macrobid 100 mg administered at 0108, CIWA @ 0300 was 10/Ativan 2 mg PO administered with + effect, patient made suicidal statement, care consult ordered/pending evaluation, VSS, behavior appropriate, will continue to monitor.
[2022-10-16 09:05] VITALS: BP 147/76; PULSE 108; RESP 16; TEMP 36.8; O2SAT 93
[2022-10-16] MEDS: Loperamide HCl 2 MG CAPSULE PO (15:12)
--- NOTE | 2022-10-16 16:47 | ECG_ITS ---
Test Reason : medical clearance Blood Pressure : / mmHG Vent. Rate : 108 BPM Atrial Rate : 108 BPM P-R Int : 154 ms QRS Dur : 080 ms QT Int : 346 ms P-R-T Axes : 077 053 038 degrees QTc Int : 463 ms Sinus tachycardia Otherwise normal ECG When compared with ECG of 07-OCT-2022 03:00, No significant change was found Referred By: Kelvin Simental Electronically Signed By:JASMINA BLACK
--- NOTE | 2022-10-16 18:36 | PC.NURSE ---
Pt A&O X 4. Having diarrhea, visual tremors. Ativan and immodium as ordered.Awaiting transfer upstairs.
[2022-10-16 23:15] VITALS: BP 136/67; PULSE 112; RESP 18; O2SAT 94
[2022-10-16] MEDS: LORazepam 1 MG TABLET PO (23:35)
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
[2022-10-17 05:47] VITALS: BP 114/61; PULSE 115; O2SAT 96
[2022-10-17] MEDS: LORazepam 1 MG TABLET PO ×4 (05:52→21:10)
[2022-10-17] MEDS: Sertraline HCL 25 MG TABLET PO (08:53)
[2022-10-17] MEDS: Magnesium Oxide 400 MG TABLET 800 MG PO (08:53)
[2022-10-17] MEDS: Nitrofurantoin Monohyd/M-Cryst 100 MG CAPSULE PO ×2 (08:53→21:11)
[2022-10-17] MEDS: Propranolol HCL 10 MG TABLET PO ×3 (08:53→21:11)
[2022-10-17] MEDS: Acetaminophen 325 MG TABLET 650 MG PO ×2 (11:14→21:11)
[2022-10-17 12:21] LABS: Blood Urea Nitrogen 13 mg/dL (9-16); Calcium 9.2 mg/dL (8.4-10.2); Estimated Glomerular Filt Rate > 60; Glucose Random 111 mg/dL (60-115)
[2022-10-17 12:36] LABS: Anion Gap 18 (12-20); Carbon Dioxide 22 mmol/L (22-29); Chloride 102 mmol/L (96-108); Potassium 4.7 mmol/L (3.3-5.1); Sodium 137 mmol/L (135-145)
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
[2022-10-17] MEDS: guaiFENesin 200 MG/10 ML 10 ML LIQUID PO (20:06)
[2022-10-17 20:54] VITALS: BP 125/73; PULSE 77; RESP 18; O2SAT 95
[2022-10-17] MEDS: QUEtiapine Fumarate 50 MG TABLET 150 MG PO (21:11)
[2022-10-17] MEDS: traZODone HCL 50 MG TABLET PO (21:11)
--- NOTE | 2022-10-17 21:14 | MHC.RECOVSUP ---
? Reason for consult:ETOH o? Current location:306-1? o? Identified substance use concern:? -? Seeking ATS (detox) -? Support ? Intervention: o? ATS bed search started/completed/in process o? Community resources provided o? Harm reduction discussion ? Plan: o? Bed search in progress to o? Follow up tomorrow? ? Additional information:RC met with pt and connected her to [facility] in [place]. Pt completed the phone screen and was told to call back at 8am for a bed and transportation as [facility] has their own car service. Please make sure Pt calls [facility] first thing in the morning! Ty!
[2022-10-17] MEDS: Phenazopyridine HCL 100 MG TABLET PO (23:50)
[2022-10-18] MEDS: hydrOXYzine HCL 25 MG TABLET PO ×2 (00:06→20:51)
[2022-10-18] MEDS: guaiFENesin 200 MG/10 ML 10 ML LIQUID PO ×3 (04:30→18:34)
--- NOTE | 2022-10-18 08:49 | MHC.RECOVRN ---
After chart review and receiving report from Pharmacovigilance Safety Expert, patient is currently admitted inpatient and no longer in need[facility] at [facility].
[2022-10-18 09:07] VITALS: BP 103/58; PULSE 84; RESP 18; TEMP 36.3; O2SAT 94
[2022-10-18] MEDS: Magnesium Oxide 400 MG TABLET 800 MG PO (09:18)
[2022-10-18] MEDS: Nitrofurantoin Monohyd/M-Cryst 100 MG CAPSULE PO ×2 (09:18→20:50)
[2022-10-18] MEDS: Propranolol HCL 10 MG TABLET PO ×3 (09:19→20:50)
[2022-10-18] MEDS: Phenazopyridine HCL 100 MG TABLET PO ×2 (09:19→16:53)
[2022-10-18] MEDS: Sertraline HCL 25 MG TABLET PO (09:20)
[2022-10-18] MEDS: LORazepam 1 MG TABLET PO ×5 (09:58→21:31)
[2022-10-18] MEDS: Lidocaine 4 % Patch ADH..PATCH 1 PATCH TRANSDERMA (13:06)
--- NOTE | 2022-10-18 15:29 | HO.PSYCHPN ---
Subjective Subjective Date of Service: 10/18/22 Reason For Visit: SI Interim History: calm, cooperative. dispo plan reviewed, ativan taper reviewed, naltrexone restarted. up and down overnight per staff, denying safety concerns. Mental Status Exam Mental Status Exam Narrative: calm, cooperative. adequately dressed and groomed. no PMA/PMR. speech nml in rate, amount, loudness, tone, latency. affect constricted, normo-intense, non-labile. no SI/HI/AVH expressed. Diagnostics Vital Signs (24Hr): Vital Signs - 24 hr 10/17/22 20:54 10/18/22 09:07 Temperature 97.3 F Pulse Rate 77 84 Respiratory Rate 18 18 Blood Pressure 125/73 103/58 L Pulse Oximetry 95 94 Oxygen Delivery Method Room Air Room Air BMI result Body Mass Index 32.1 Labs 10/16/22 00:01 10/17/22 11:55 Labs: Laboratory Results - last 48 hr 10/17/22 11:55 Sodium 137 Potassium 4.7 Chloride 102 Carbon Dioxide 22 Anion Gap 18 BUN 13 Creatinine 0.90 Estim Creat Clear Calc 64.0 Estimated GFR > 60 Random Glucose 111 Calcium 9.2 D Medications Medications Current Medications Acetaminophen (Acetaminophen 325 Mg Tablet) 650 mg PO Q6H PRN PRN Reason: Headache/Pain Mild Scale (1-3) Last Admin: 10/17/22 21:11 Dose: 650 mg Al Hydroxide/Mg Hydroxide (Magnesium Hydrox/Alum Hydrox 30 Ml Oral.Susp) 30 ml PO Q6H PRN PRN Reason: Heartburn/Nausea Guaifenesin (Guaifenesin 200 Mg/10 Ml 10 Ml Liquid) 10 ml PO Q4H PRN PRN Reason: cough Last Admin: 10/18/22 09:22 Dose: 10 ml Hydroxyzine HCl (Hydroxyzine Hcl 25 Mg Tablet) 25 mg PO Q6H PRN PRN Reason: Anxiety Last Admin: 10/18/22 00:06 Dose: 25 mg Lidocaine (Lidocaine 4 % Patch Adh..Patch) 1 patch TRANSDERMA DAILY [facility]; Protocol Last Admin: 10/18/22 13:06 Dose: 1 patch Lorazepam (Lorazepam 1 Mg Tablet) 1 mg PO QID [facility] Stop: 10/18/22 21:01 Last Admin: 10/18/22 13:06 Dose: 1 mg Lorazepam (Lorazepam 1 Mg Tablet) 1 mg PO ONCE ONE Stop: 10/18/22 21:01 Lorazepam (Lorazepam 1 Mg Tablet) 1 mg PO TID [facility] Stop: 10/19/22 21:01 Lorazepam (Lorazepam 0.5 Mg Tablet) 0.5 mg PO BID [facility] Stop: 10/20/22 21:01 Magnesium Hydroxide (Milk Of Magnesia 30 Ml Oral.Susp) 30 ml PO DAILY PRN PRN Reason: Constipation Magnesium Oxide (Magnesium Oxide 400 Mg Tablet) 800 mg PO DAILY [facility] Stop: 10/18/22 23:59 Last Admin: 10/18/22 09:18 Dose: 800 mg Naltrexone HCl (Naltrexone Hcl 50 Mg Tablet) 50 mg PO DAILY [facility] Nicotine Polacrilex (Nicotine Polacrilex 2 Mg Gum) 2 mg BUCCAL Q2H PRN PRN Reason: Nicotine Cravings Nitrofurantoin Macrocrystals (Nitrofurantoin Monohyd/M-Cryst 100 Mg Capsule) 100 mg PO BID [facility] Stop: 10/20/22 09:01 Last Admin: 10/18/22 09:18 Dose: 100 mg Phenazopyridine HCl (Phenazopyridine Hcl 100 Mg Tablet) 100 mg PO BIDWM [facility] Stop: 10/19/22 17:01 Last Admin: 10/18/22 09:19 Dose: 100 mg Propranolol HCl (Propranolol Hcl 10 Mg Tablet) 10 mg PO TID [facility]; Protocol Last Admin: 10/18/22 09:19 Dose: 10 mg Quetiapine Fumarate (Quetiapine Fumarate 50 Mg Tablet) 150 mg PO BEDTIME [facility] Last Admin: 10/17/22 21:11 Dose: 150 mg Sertraline HCl (Sertraline Hcl 25 Mg Tablet) 25 mg PO DAILY [facility] Last Admin: 10/18/22 09:20 Dose: 25 mg Trazodone HCl (Trazodone Hcl 50 Mg Tablet) 50 mg PO BEDTIME MRX1 PRN PRN Reason: Insomnia Last Admin: 10/17/22 21:11 Dose: 50 mg Allergies Allergies Allergy/AdvReac Type Severity Reaction Status Date / Time No Known Allergies Allergy Verified 08/02/22 18:30 [No Known Allergies*] Assessment & Plan Assessment & Plan (1) Alcohol use: Status: Acute Code(s): Z72.89 - Other problems related to lifestyle (2) Depression: Status: Acute Code(s): F32.A - Depression, unspecified Plan 10/17: restart home medications regimen. detox from alcohol with ativan per [facility] protocol. T/C naltrexone start. 10/18: restart naltrexone. schedule ativan taper, to end friday. planning to DC to son's home next week and start IOP. Reason for contiued inpatient stay Substantial Risk for: inability to function and rapid decompensation Time Spent With Patient Time: Total time managing care of this patient today _25___ minutes.
[2022-10-18 15:33] VITALS: BP 136/63; PULSE 83
[2022-10-18 20:42] VITALS: BP 123/68; PULSE 83; TEMP 36.4; O2SAT 94
--- NOTE | 2022-10-18 20:48 | MHC.RECOVSUP ---
? Reason for consult:ETOH o? Current location:306-1? o? Identified substance use concern:? -? Support ? Intervention: o? Community resources provided o? Harm reduction discussion ? Plan: o? Follow up tomorrow? ? Additional information:RC met with pt and discussed aftercare, pt stated she'd like to continue treatment. I explained for her to submit a referral to a CSS.
[2022-10-18] MEDS: QUEtiapine Fumarate 50 MG TABLET 150 MG PO (20:50)
[2022-10-18] MEDS: traZODone HCL 50 MG TABLET PO (20:50)
[2022-10-19 08:21] VITALS: BP 120/86; PULSE 84; TEMP 36.2; O2SAT 95
[2022-10-19] MEDS: LORazepam 1 MG TABLET PO ×3 (08:38→20:28)
[2022-10-19] MEDS: Phenazopyridine HCL 100 MG TABLET PO (08:38)
[2022-10-19] MEDS: Nitrofurantoin Monohyd/M-Cryst 100 MG CAPSULE PO ×2 (08:39→20:28)
[2022-10-19] MEDS: Naltrexone HCl 50 MG TABLET PO (08:39)
[2022-10-19] MEDS: Sertraline HCL 25 MG TABLET PO (08:39)
[2022-10-19] MEDS: Propranolol HCL 10 MG TABLET PO ×3 (08:40→20:28)
[2022-10-19] MEDS: Lidocaine 4 % Patch ADH..PATCH 1 PATCH TRANSDERMA (08:41)
[2022-10-19] MEDS: guaiFENesin 100 MG/5 ML LIQUID 20 ML PO ×2 (14:08→20:27)
--- NOTE | 2022-10-19 14:54 | MHC.RECOVSUP ---
? Reason for consult:Recovery Support o Current location: 306-1? o Identified substance use concern: AUD? - Support ? ?Intervention: o Harm reduction discussion ? Plan: o Referral to CCC o Bed search in progress to ? Additional information:?womens volleyball coach met with patient. Patient was agitated from lack of sleep. Roommate has nightmares and screams throughout the evening. Patient is looking for extermination inspector treatment, a [facility] along with a residential facility was suggested. Patient is interested in [facility] . Patient needs to connect with client care coordinator. Patient is homeless, has untreated alcoholism and continues to display patterns that eventually leads her to the ED for support. A referral for [facility] to help support AUD. Follow up from Cris Staley, Recovery Support Nurse is suggested for a MAT.
--- NOTE | 2022-10-19 19:43 | P.PNPSI_ITS ---
Subjective Subjective Date of Service: 10/19/22 Reason For Visit: SI Interim History: no change in presentation. c/o poor sleep last night due to roommatre's yelling out. c/o strange urine color, no other Sx, likely explained by current medications. per staff, isolative, mod anx. safe. c/o HERNANDEZ, tremor. on ativan taper. Mental Status Exam Mental Status Exam Narrative: calm, cooperative. adequately dressed and groomed. no PMA/PMR. speech nml in rate, amount, loudness, tone, latency. affect constricted, normo-intense, non- labile. no SI/HI/AVH expressed. Diagnostics Vital Signs (24Hr): Vital Signs - 24 hr 10/18/22 20:42 10/19/22 08:21 Temperature 97.6 F 97.2 F Pulse Rate 83 84 Blood Pressure 123/68 120/86 Pulse Oximetry 94 95 Oxygen Delivery Method Room Air Room Air BMI result Body Mass Index 32.1 Labs 10/16/22 00:01 10/17/22 11:55 Medications Medications Current Medications Acetaminophen (Acetaminophen 325 Mg Tablet) 650 mg PO Q6H PRN PRN Reason: Headache/Pain Mild Scale (1-3) Last Admin: 10/17/22 21:11 Dose: 650 mg Al Hydroxide/Mg Hydroxide (Magnesium Hydrox/Alum Hydrox 30 Ml Oral.Susp) 30 ml PO Q6H PRN PRN Reason: Heartburn/Nausea Guaifenesin (Guaifenesin 100 Mg/5 Ml Liquid) 20 ml PO Q4H PRN PRN Reason: cough Last Admin: 10/19/22 14:08 Dose: 20 ml Hydroxyzine HCl (Hydroxyzine Hcl 25 Mg Tablet) 25 mg PO Q6H PRN PRN Reason: Anxiety Last Admin: 10/18/22 20:51 Dose: 25 mg Lidocaine (Lidocaine 4 % Patch Adh..Patch) 1 patch TRANSDERMA DAILY [facility]; Protocol Last Admin: 10/19/22 08:41 Dose: 1 patch Lorazepam (Lorazepam 1 Mg Tablet) 1 mg PO TID [facility] Stop: 10/19/22 21:01 Last Admin: 10/19/22 15:34 Dose: 1 mg Lorazepam (Lorazepam 0.5 Mg Tablet) 0.5 mg PO BID [facility] Stop: 02/26/23 21:01 Magnesium Hydroxide (Milk Of Magnesia 30 Ml Oral.Susp) 30 ml PO DAILY PRN PRN Reason: Constipation Naltrexone HCl (Naltrexone Hcl 50 Mg Tablet) 50 mg PO DAILY [facility] Last Admin: 10/19/22 08:39 Dose: 50 mg Nicotine Polacrilex (Nicotine Polacrilex 2 Mg Gum) 2 mg BUCCAL Q2H PRN PRN Reason: Nicotine Cravings Nitrofurantoin Macrocrystals (Nitrofurantoin Monohyd/M-Cryst 100 Mg Capsule) 100 mg PO BID [facility] Stop: 10/20/22 09:01 Last Admin: 10/19/22 08:39 Dose: 100 mg Propranolol HCl (Propranolol Hcl 10 Mg Tablet) 10 mg PO TID [facility]; Protocol Last Admin: 10/19/22 15:34 Dose: 10 mg Quetiapine Fumarate (Quetiapine Fumarate 50 Mg Tablet) 150 mg PO BEDTIME [facility] Last Admin: 10/18/22 20:50 Dose: 150 mg Sertraline HCl (Sertraline Hcl 25 Mg Tablet) 25 mg PO DAILY [facility] Last Admin: 10/19/22 08:39 Dose: 25 mg Trazodone HCl (Trazodone Hcl 50 Mg Tablet) 50 mg PO BEDTIME MRX1 PRN PRN Reason: Insomnia Last Admin: 10/18/22 20:50 Dose: 50 mg Allergies Allergies Allergy/AdvReac Type Severity Reaction Status Date / Time No Known Allergies Allergy Verified 08/02/22 18:30 [No Known Allergies*] Assessment & Plan Assessment & Plan (1) Alcohol use: Status: Acute Code(s): Z72.89 - Other problems related to lifestyle (2) Depression: Status: Acute Code(s): F32.A - Depression, unspecified Plan 10/17: restart home medications regimen. detox from alcohol with ativan per [facility] protocol. T/C naltrexone start. 10/18: restart naltrexone. schedule ativan taper, to end friday. planning to DC to son's home next week and start IOP. 10/19: stable. no change in mgmt. Reason for contiued inpatient stay Substantial Risk for: inability to function and rapid decompensation Time Spent With Patient Time: Total time managing care of this patient today __15__ minutes.
[2022-10-19 20:24] VITALS: BP 131/72; PULSE 85; TEMP 36.6; O2SAT 92
[2022-10-19] MEDS: QUEtiapine Fumarate 50 MG TABLET 150 MG PO (20:28)
[2022-10-19] MEDS: hydrOXYzine HCL 25 MG TABLET PO (20:28)
[2022-10-19] MEDS: traZODone HCL 50 MG TABLET PO (20:37)
[2022-10-20 08:33] VITALS: BP 145/68; PULSE 77; TEMP 36.7; O2SAT 97
[2022-10-20] MEDS: Lidocaine 4 % Patch ADH..PATCH 1 PATCH TRANSDERMA (08:38)
[2022-10-20] MEDS: Nitrofurantoin Monohyd/M-Cryst 100 MG CAPSULE PO (08:38)
[2022-10-20] MEDS: LORazepam 0.5 MG TABLET PO ×2 (08:39→20:51)
[2022-10-20] MEDS: Propranolol HCL 10 MG TABLET PO ×3 (08:39→20:51)
[2022-10-20] MEDS: Sertraline HCL 25 MG TABLET PO (08:39)
[2022-10-20] MEDS: Naltrexone HCl 50 MG TABLET PO (08:39)
--- NOTE | 2022-10-20 16:03 | HO.PSYCHPN ---
Subjective Subjective Date of Service: 10/20/22 Reason For Visit: SI Interim History: stable presentation. spoke with men's golf coach last night. ativan taper ends today. planning to go to son's house and do IOP from there. planning for discharge. per staff, isolative, withdrawn. not attending groups. napping. appears to be sleeping NOC. dep/anx 04/03. denies SI/HI/AVH. eating, showered. Mental Status Exam Mental Status Exam Narrative: calm, cooperative. adequately dressed and groomed. no PMA/PMR. speech nml in rate, amount, loudness, tone, latency. affect constricted, normo-intense, non-labile. no SI/HI/AVH expressed. Diagnostics Vital Signs (24Hr): Vital Signs - 24 hr 10/19/22 20:24 10/20/22 08:33 Temperature 97.8 F 98.1 F Pulse Rate 85 77 Blood Pressure 131/72 145/68 H Pulse Oximetry 92 97 Oxygen Delivery Method Room Air Room Air BMI result Body Mass Index 32.1 Labs 10/16/22 00:01 10/17/22 11:55 Medications Medications Current Medications Acetaminophen (Acetaminophen 325 Mg Tablet) 650 mg PO Q6H PRN PRN Reason: Headache/Pain Mild Scale (1-3) Last Admin: 10/17/22 21:11 Dose: 650 mg Al Hydroxide/Mg Hydroxide (Magnesium Hydrox/Alum Hydrox 30 Ml Oral.Susp) 30 ml PO Q6H PRN PRN Reason: Heartburn/Nausea Guaifenesin (Guaifenesin 100 Mg/5 Ml Liquid) 20 ml PO Q4H PRN PRN Reason: cough Last Admin: 10/19/22 20:27 Dose: 20 ml Hydroxyzine HCl (Hydroxyzine Hcl 25 Mg Tablet) 25 mg PO Q6H PRN PRN Reason: Anxiety Last Admin: 10/19/22 20:28 Dose: 25 mg Lidocaine (Lidocaine 4 % Patch Adh..Patch) 1 patch TRANSDERMA DAILY [facility]; Protocol Last Admin: 10/20/22 08:38 Dose: 1 patch Lorazepam (Lorazepam 0.5 Mg Tablet) 0.5 mg PO BID [facility] Stop: 10/20/22 21:01 Last Admin: 10/20/22 08:39 Dose: 0.5 mg Magnesium Hydroxide (Milk Of Magnesia 30 Ml Oral.Susp) 30 ml PO DAILY PRN PRN Reason: Constipation Naltrexone HCl (Naltrexone Hcl 50 Mg Tablet) 50 mg PO DAILY [facility] Last Admin: 10/20/22 08:39 Dose: 50 mg Nicotine Polacrilex (Nicotine Polacrilex 2 Mg Gum) 2 mg BUCCAL Q2H PRN PRN Reason: Nicotine Cravings Propranolol HCl (Propranolol Hcl 10 Mg Tablet) 10 mg PO TID [facility]; Protocol Last Admin: 10/20/22 08:39 Dose: 10 mg Quetiapine Fumarate (Quetiapine Fumarate 50 Mg Tablet) 150 mg PO BEDTIME [facility] Last Admin: 10/19/22 20:28 Dose: 150 mg Sertraline HCl (Sertraline Hcl 25 Mg Tablet) 25 mg PO DAILY [facility] Last Admin: 10/20/22 08:39 Dose: 25 mg Trazodone HCl (Trazodone Hcl 50 Mg Tablet) 50 mg PO BEDTIME MRX1 PRN PRN Reason: Insomnia Last Admin: 10/19/22 20:37 Dose: 50 mg Allergies Allergies Allergy/AdvReac Type Severity Reaction Status Date / Time No Known Allergies Allergy Verified 08/02/22 18:30 [No Known Allergies*] Assessment & Plan Assessment & Plan (1) Alcohol use: Status: Acute Code(s): Z72.89 - Other problems related to lifestyle (2) Depression: Status: Acute Code(s): F32.A - Depression, unspecified Plan 10/17: restart home medications regimen. detox from alcohol with ativan per [facility] protocol. T/C naltrexone start. 10/18: restart naltrexone. schedule ativan taper, to end friday. planning to DC to son's home next week and start IOP. 10/19: stable. no change in mgmt. 10/20: stable. no change in mgmt. ativan taper ends tonight. planning for discharge and IOP after. Reason for contiued inpatient stay Substantial Risk for: inability to function and rapid decompensation Time Spent With Patient Time: Total time managing care of this patient today ____ minutes.
[2022-10-20 20:48] VITALS: BP 139/77; PULSE 77; RESP 18; TEMP 36.1; O2SAT 95
[2022-10-20] MEDS: QUEtiapine Fumarate 50 MG TABLET 150 MG PO (20:51)
[2022-10-20] MEDS: hydrOXYzine HCL 25 MG TABLET PO (20:52)
[2022-10-20] MEDS: Acetaminophen 325 MG TABLET 650 MG PO (20:52)
[2022-10-20] MEDS: traZODone HCL 50 MG TABLET PO (20:52)
[2022-10-21 09:40] VITALS: BP 118/60; PULSE 81; TEMP 36.6; O2SAT 95
[2022-10-21] MEDS: Naltrexone HCl 50 MG TABLET PO (09:43)
[2022-10-21] MEDS: Propranolol HCL 10 MG TABLET PO ×3 (09:44→20:39)
[2022-10-21] MEDS: Sertraline HCL 25 MG TABLET PO (09:44)
[2022-10-21] MEDS: Lidocaine 4 % Patch ADH..PATCH 1 PATCH TRANSDERMA (09:44)
[2022-10-21] MEDS: hydrOXYzine HCL 25 MG TABLET PO (11:24)
--- NOTE | 2022-10-21 13:15 | HO.PSYCHPN ---
Subjective Subjective Date of Service: 10/21/22 Reason For Visit: SI Interim History: calm, cooperative. states UTI Sx resolved. naltrexone going well. off of ativan as of last night. taking seroquel and trazodone. feeling improved, like things are moving forward. planning to discharge to son's house weds. per staff, not attending groups. slept well after traz/hydrox/tyl last NOC. Mental Status Exam Mental Status Exam Narrative: calm, cooperative. adequately dressed and groomed. no PMA/PMR. speech nml in rate, amount, loudness, tone, latency. affect more flexible, normo-intense, non-labile. no SI/HI/AVH expressed. Diagnostics Vital Signs (24Hr): Vital Signs - 24 hr 10/20/22 20:48 10/21/22 09:40 Temperature 97.0 F 97.8 F Pulse Rate 77 81 Respiratory Rate 18 Blood Pressure 139/77 118/60 Pulse Oximetry 95 95 Oxygen Delivery Method Room Air Room Air BMI result Body Mass Index 32.1 Labs 10/16/22 00:01 10/17/22 11:55 Medications Medications Current Medications Acetaminophen (Acetaminophen 325 Mg Tablet) 650 mg PO Q6H PRN PRN Reason: Headache/Pain Mild Scale (1-3) Last Admin: 10/20/22 20:52 Dose: 650 mg Al Hydroxide/Mg Hydroxide (Magnesium Hydrox/Alum Hydrox 30 Ml Oral.Susp) 30 ml PO Q6H PRN PRN Reason: Heartburn/Nausea Guaifenesin (Guaifenesin 100 Mg/5 Ml Liquid) 20 ml PO Q4H PRN PRN Reason: cough Last Admin: 10/19/22 20:27 Dose: 20 ml Hydroxyzine HCl (Hydroxyzine Hcl 25 Mg Tablet) 25 mg PO Q6H PRN PRN Reason: Anxiety Last Admin: 10/21/22 11:24 Dose: 25 mg Lidocaine (Lidocaine 4 % Patch Adh..Patch) 1 patch TRANSDERMA DAILY [facility]; Protocol Last Admin: 10/21/22 09:44 Dose: 1 patch Magnesium Hydroxide (Milk Of Magnesia 30 Ml Oral.Susp) 30 ml PO DAILY PRN PRN Reason: Constipation Naltrexone HCl (Naltrexone Hcl 50 Mg Tablet) 50 mg PO DAILY [facility] Last Admin: 10/21/22 09:43 Dose: 50 mg Nicotine Polacrilex (Nicotine Polacrilex 2 Mg Gum) 2 mg BUCCAL Q2H PRN PRN Reason: Nicotine Cravings Propranolol HCl (Propranolol Hcl 10 Mg Tablet) 10 mg PO TID [facility]; Protocol Last Admin: 10/21/22 09:44 Dose: 10 mg Quetiapine Fumarate (Quetiapine Fumarate 50 Mg Tablet) 150 mg PO BEDTIME [facility] Last Admin: 10/20/22 20:51 Dose: 150 mg Sertraline HCl (Sertraline Hcl 25 Mg Tablet) 25 mg PO DAILY [facility] Last Admin: 10/21/22 09:44 Dose: 25 mg Trazodone HCl (Trazodone Hcl 50 Mg Tablet) 50 mg PO BEDTIME MRX1 PRN PRN Reason: Insomnia Last Admin: 10/20/22 20:52 Dose: 50 mg Allergies Allergies Allergy/AdvReac Type Severity Reaction Status Date / Time No Known Allergies Allergy Verified 08/02/22 18:30 [No Known Allergies*] Assessment & Plan Assessment & Plan (1) Alcohol use: Status: Acute Code(s): Z72.89 - Other problems related to lifestyle (2) Depression: Status: Acute Code(s): F32.A - Depression, unspecified Plan 10/17: restart home medications regimen. detox from alcohol with ativan per [facility] protocol. T/C naltrexone start. 10/18: restart naltrexone. schedule ativan taper, to end friday. planning to DC to son's home next week and start IOP. 10/19: stable. no change in mgmt. 10/20: stable. no change in mgmt. ativan taper ends tonight. planning for weds discharge and IOP after. 10/21: stable. no change in mgmt. ativan taper complete. planning for weds discharge and IOP after. Reason for contiued inpatient stay Substantial Risk for: rapid decompensation Time Spent With Patient Time: Total time managing care of this patient today __20__ minutes.
[2022-10-21 14:08] VITALS: BP 123/60; PULSE 82
[2022-10-21] MEDS: hydrOXYzine HCL 50 MG TABLET PO ×2 (17:56→21:10)
[2022-10-21 18:00] VITALS: BP 126/68; PULSE 74; RESP 18; TEMP 36.6; O2SAT 96
[2022-10-21] MEDS: QUEtiapine Fumarate 50 MG TABLET 150 MG PO (20:39)
[2022-10-21] MEDS: traZODone HCL 50 MG TABLET PO (20:39)
[2022-10-21] MEDS: Acetaminophen 325 MG TABLET 650 MG PO (20:47)
[2022-10-21] MEDS: guaiFENesin 100 MG/5 ML LIQUID 20 ML PO (21:15)
[2022-10-22 06:00] VITALS: BP 128/62; PULSE 77; RESP 18; TEMP 36.7; O2SAT 95
[2022-10-22] MEDS: Naltrexone HCl 50 MG TABLET PO (09:07)
[2022-10-22] MEDS: Acetaminophen 325 MG TABLET 650 MG PO ×2 (09:07→20:14)
[2022-10-22] MEDS: Propranolol HCL 10 MG TABLET PO ×3 (09:07→20:11)
[2022-10-22] MEDS: Sertraline HCL 25 MG TABLET PO ×2 (09:07→14:30)
[2022-10-22] MEDS: Lidocaine 4 % Patch ADH..PATCH 1 PATCH TRANSDERMA (09:07)
--- NOTE | 2022-10-22 13:40 | HO.PSYCHPN ---
Subjective Subjective Date of Service: 10/22/22 Reason For Visit: SI Interim History: met with; discussed with team; staff reports pt slept last night; no behavioral concerns Patient reports she is doing a lot better and that her depression has the abated; no SI; tolerating Zoloft and agrees to increased dose. Patient feels ready to discharge and expresses much gratitude for treatment received on the unit. Discussed plans for pursuing sobriety and patient is looking into partial day programs. Reports she slept well. Mental Status Exam Mental Status Exam Narrative: Pt is alert and oriented; behavior is cooperative, friendly and calm; patient is not in distress; dressed in casual attire with unkempt hair but adequate hygiene; mood is described as a lot better and affect congruent; eye contact appropriate; Speech is normal rate, volume and prosody and not pressured; no psychomotor agitation/retardation present; thought process is organized and goal directed; Thought content is on tx; otherwise pertinent to relevant topics and without any delusional content, paranoid ideations or grandiosity; denies any SI/HI. There is no evidence of perceptual disturbance. Patients insight and judgment are intact. Diagnostics Vital Signs (24Hr): Vital Signs - 24 hr 10/21/22 14:08 10/21/22 18:00 10/22/22 06:00 Temperature 97.8 F 98.1 F Pulse Rate 82 74 77 Respiratory Rate 18 18 Blood Pressure 123/60 126/68 128/62 Pulse Oximetry 96 95 Oxygen Delivery Method Room Air Room Air BMI result Body Mass Index 32.1 Labs 10/16/22 00:01 10/17/22 11:55 Medications Medications Current Medications Acetaminophen (Acetaminophen 325 Mg Tablet) 650 mg PO Q6H PRN PRN Reason: Headache/Pain Mild Scale (1-3) Last Admin: 10/22/22 09:07 Dose: 650 mg Al Hydroxide/Mg Hydroxide (Magnesium Hydrox/Alum Hydrox 30 Ml Oral.Susp) 30 ml PO Q6H PRN PRN Reason: Heartburn/Nausea Guaifenesin (Guaifenesin 100 Mg/5 Ml Liquid) 20 ml PO Q4H PRN PRN Reason: cough Last Admin: 10/21/22 21:15 Dose: 20 ml Hydroxyzine HCl (Hydroxyzine Hcl 50 Mg Tablet) 50 mg PO Q6H PRN PRN Reason: Anxiety Last Admin: 10/21/22 17:56 Dose: 50 mg Lidocaine (Lidocaine 4 % Patch Adh..Patch) 1 patch TRANSDERMA DAILY [facility]; Protocol Last Admin: 10/22/22 09:07 Dose: 1 patch Magnesium Hydroxide (Milk Of Magnesia 30 Ml Oral.Susp) 30 ml PO DAILY PRN PRN Reason: Constipation Naltrexone HCl (Naltrexone Hcl 50 Mg Tablet) 50 mg PO DAILY [facility] Last Admin: 10/22/22 09:07 Dose: 50 mg Nicotine Polacrilex (Nicotine Polacrilex 2 Mg Gum) 2 mg BUCCAL Q2H PRN PRN Reason: Nicotine Cravings Propranolol HCl (Propranolol Hcl 10 Mg Tablet) 10 mg PO TID [facility]; Protocol Last Admin: 10/22/22 09:07 Dose: 10 mg Quetiapine Fumarate (Quetiapine Fumarate 50 Mg Tablet) 150 mg PO BEDTIME MYRA Last Admin: 10/21/22 20:39 Dose: 150 mg Sertraline HCl (Sertraline Hcl 25 Mg Tablet) 25 mg PO DAILY [facility] Last Admin: 10/22/22 09:07 Dose: 25 mg Trazodone HCl (Trazodone Hcl 50 Mg Tablet) 50 mg PO BEDTIME MRX1 PRN PRN Reason: Insomnia Last Admin: 10/21/22 20:39 Dose: 50 mg Allergies Allergies Allergy/AdvReac Type Severity Reaction Status Date / Time No Known Allergies Allergy Verified 08/02/22 18:30 [No Known Allergies*] Assessment & Plan Assessment & Plan (1) Depression: Status: Acute Code(s): F32.A - Depression, unspecified (2) Alcohol use: Status: Acute Code(s): Z72.89 - Other problems related to lifestyle Plan 10/17: restart home medications regimen. detox from alcohol with ativan per [facility] protocol. T/C naltrexone start. 10/18: restart naltrexone. schedule ativan taper, to end friday. planning to DC to son's home next week and start IOP. 10/19: stable. no change in mgmt. 10/20: stable. no change in mgmt. ativan taper ends tonight. planning for weds discharge and IOP after. 10/21: stable. no change in mgmt. ativan taper complete. planning for weds discharge and IOP after. 10/22 patient remains stable, in good mood and feels depression has resolved; no SI. Tolerating medications well and agrees to increasing Zoloft to 50 mg. Patient feels ready for discharge. She is not in imminent risk for harm to self or others and is appropriate to continue treatment in the outpatient setting. Patient educated on: diagnosis, medication risk/benefits, substance abuse and therapeutic strategies Informed Consent: understands Reason for contiued inpatient stay Substantial Risk for: stable for discharge Time Spent With Patient Time: Total time managing care of this patient today ____ minutes.
[2022-10-22] MEDS: hydrOXYzine HCL 50 MG TABLET PO ×2 (13:47→20:14)
[2022-10-22 19:45] VITALS: BP 130/67; PULSE 73; RESP 16; TEMP 36.6; O2SAT 95
[2022-10-22] MEDS: QUEtiapine Fumarate 50 MG TABLET 150 MG PO (20:11)
[2022-10-22] MEDS: traZODone HCL 50 MG TABLET PO (20:11)
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
[2022-10-23 08:32] VITALS: BP 135/69; PULSE 75; RESP 16; TEMP 36.4; O2SAT 96
[2022-10-23] MEDS: Lidocaine 4 % Patch ADH..PATCH 1 PATCH TRANSDERMA (08:33)
[2022-10-23] MEDS: Naltrexone HCl 50 MG TABLET PO (08:34)
[2022-10-23] MEDS: Propranolol HCL 10 MG TABLET PO (08:34)
[2022-10-23] MEDS: Sertraline HCL 50 MG TABLET PO (08:35)
--- NOTE | 2022-10-23 09:22 | PC.NURSE ---
Patient easily engaged. Reports mood is okay . Denies SI/HI at this time. Reports feeling better overall. Denies perceptual disturbances, no overt psychosis or expressed delusions. Denies cravings at this time. Medications reviewed with patient, reports understanding. Reviewed follow up appointments with patient reports understanding. Provided crisis numbers to patient, encouraged utilization of 911 service in need of immediate attention. All belongings taken with patient.
== END 2022-10-23 09:05 | disposition home or self-care (01) | DRG 754 ==
LOC: HO.ED 10-16 16:50 → HO.PADLT16 10-16 22:41
PROVIDERS: Emergency Medicine; Admitting Provider Psychiatry & Neurology Psychiatry; Emergency Provider Emergency Medicine Emergency Medical Services; PCP Internal Medicine; Visit Provider Psychiatry & Neurology Psychiatry
DX: F32.A Depression, unspecified (principal); R45.851 Suicidal ideations; F10.929 Alcohol use, unspecified with intoxication, unspecified; Y90.0 Blood alcohol level of less than 20 mg/100 ml; Z20.822 Contact with and (suspected) exposure to COVID-19; Z79.899 Other long term (current) drug therapy
CPT/HCPCS: 36415; 80048; 80053; 80307; 81001; 82077; 83735; 85025; 87635; 93005; 99285; S9485

== ENCOUNTER 2022-10-27 18:39 | Emergency (ER) | payer OTHER, SELFPAY ==
[2022-10-27 18:44] VITALS: BP 124/75; PULSE 80; PULSE 82; RESP 18; TEMP 36.8; O2SAT 95; O2SAT 97; BMI 31.8
[2022-10-27 23:22] VITALS: BP 120/69; PULSE 87; RESP 18; TEMP 36.5; O2SAT 94
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
--- NOTE | 2022-10-28 01:02 | PC.NURSE ---
assumed care of pt
[2022-10-28 01:28] VITALS: BP 121/86; PULSE 94; RESP 16; TEMP 36.6; O2SAT 93
[2022-10-28 02:00] VITALS: BP 122/86; PULSE 76; RESP 17; TEMP 36.8; O2SAT 96
[2022-10-28] MEDS: Azithromycin 500 MG TABLET 1000 MG PO (02:04)
[2022-10-28] MEDS: Post Exposure Medication Kit 1 KIT PO (02:11)
[2022-10-28] MEDS: cefTRIAXone sodium 500 MG, Lidocaine HCl 1 % MPF 1 ML IM (02:30)
--- NOTE | 2022-10-28 04:57 | PC.NURSE ---
Per verbal order from DFr Brazille order zofran 4mg translingual, pt vomiting
--- NOTE | 2022-10-28 05:03 | PC.NURSE ---
pt aox4, no apparent distress, resting quietly
[2022-10-28] MEDS: Ondansetron ODT 4 MG TAB.RAPDIS TRANSLINGU ×2 (05:05→05:47)
[2022-10-28] MEDS: metroNIDAZOLE 500 MG TABLET 2000 MG PO (05:44)
--- NOTE | 2022-10-28 05:47 | PC.NURSE ---
verbal order per Dr Anderw for zofran 4 mg translingual, pt has experienced some relief from first dose but expresses that she continues to feel very nauseous
--- NOTE | 2022-10-28 07:43 | PC.NURSE ---
alert, speech clear, skin wpd, steady gait, has had some nausea, van voucher provided and pt wants to go to [facility] and not her son's house where she is living, transportation services said they could get her there, pt has d/c instructions from previous shift, shirt provided as she didn't have one
[2022-10-28 08:08] VITALS: BP 134/86; PULSE 102; RESP 16; TEMP 36.7; O2SAT 94
== END 2022-10-28 08:26 | disposition home or self-care (01) ==
PROVIDERS: Emergency Provider Emergency Medicine Emergency Medical Services
DX: T76.21XA Adult sexual abuse, suspected, initial encounter (principal); Z20.2 Contact with and (suspected) exposure to infections with a predominantly sexual mode of transmission
CPT/HCPCS: 96372; 99284; J0696

== ENCOUNTER 2022-10-28 13:29 | Emergency (ER) | payer OTHER, SELFPAY ==
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
[2022-10-28 14:00] VITALS: BP 124/63; BP 150/90; PULSE 98; PULSE 99; RESP 18; TEMP 36.9; O2SAT 93; O2SAT 98; BMI 33.0
[2022-10-28 14:28] LABS: MANUAL DIFF FLAG NO
[2022-10-28 14:30] LABS: Basophils Absolute Auto 0.1 X10*3/uL (0.0-0.2); Basophils Percent Auto 0.7 % (0-2); Eosinophils Percent Auto 0.1 % (0-4); Hematocrit 36.9 % (37.0-47.0); Hemoglobin 12.1 g/dl (12.0-16.0); Imm Gran Abs Auto 0.03 X10*3/uL (0.00-0.03); Imm Gran Pct Auto 0.3 % (0.0-0.4); Lymphocytes Absolute Auto 2.7 X10*3/uL (1.2-4.9); Lymphocytes Percent Auto 23.3 % (20-40); Mean Corpuscular HGB Conc 32.8 g/dl (31.0-35.0); Mean Corpuscular Hemoglobin 30.3 pg (27.0-33.0); Mean Corpuscular Volume 92.3 fL (80.0-98.0); Mean Platelet Volume 8.8 fL (9.4-12.3); Monocytes Absolute Auto 0.6 X10*3/uL (0.1-1.2); Monocytes Percent Auto 4.8 % (2-11); Neutrophils Absolute Auto 8.4 x10*3/uL (2.0-8.3); Neutrophils Percent Auto 70.8 % (45-73); Platelet Count 540 X10*3/uL (160-400); Red Cell Distribution Width 15.6 % (11.0-16.0); White Blood Count 11.8 X10*3/uL (4.8-10.8)
[2022-10-28 14:47] LABS: COVID-19 Test Negative (Negative); IDNOW Serial# BCCEAD1C
[2022-10-28 14:56] LABS: Alanine Aminotransferase 29 U/L (0-31); Albumin Level 4.1 g/dL (3.5-5.0); Alkaline Phosphatase 95 U/L (39-117); Anion Gap 18 (12-20); Aspartate Amino Transferase 27 U/L (5-31); Bilirubin Total 0.7 mg/dL (0.0-1.0); Blood Urea Nitrogen 13 mg/dL (9-16); Calcium 9.2 mg/dL (8.4-10.2); Carbon Dioxide 24 mmol/L (22-29); Chloride 103 mmol/L (96-108); Estimated Glomerular Filt Rate > 60; Ethanol 227 mg/dL; Glucose Random 153 mg/dL (60-115); Potassium 3.6 mmol/L (3.3-5.1); Sodium 141 mmol/L (135-145); Total Protein 7.8 g/dL (6.5-8.0)
[2022-10-28] MEDS: clonazePAM 0.5 MG TABLET PO (15:08)
[2022-10-28 15:21] VITALS: BP 116/59; PULSE 103; RESP 15; TEMP 36.6; O2SAT 100
[2022-10-28 20:22] LABS: Appearance Urine Clear; Color Urine Dark Yellow; Glucose Urine UA Negative (Negative); Leukocyte Esterase Urine Small (1+) (Negative); Nitrite Urine Negative (Negative); PH 5.5 (5.0-9.0); Specific Gravity - Urine 1.025 (1.005-1.025); UMIC TRIGGER UA YES; Urine Blood Negative (Negative); Urine Ketones Trace mg/dL (Negative); Urine Protein 30 (1+) mg/dL (Neg-Trace)
[2022-10-28 20:24] LABS: Bacteria Urine None Seen (None Seen); Hyaline Casts Urine 0-2 /LPF (0-2); RBC Urine 0-2 /HPF (0-2); WBC Urine >50 /HPF (0-5)
[2022-10-28 20:25] LABS: UPreg QC Valid YES; Urine Pregnancy NEGATIVE (NEGATIVE)
[2022-10-28] MEDS: LORazepam 1 MG TABLET 2 MG PO (20:25)
[2022-10-28 20:33] LABS: Amphetamine Screen Urine Not Detected (Not Detect); Barbiturates, Urine Not Detected (Not Detect); Benzodiazepines Screen Urine POSITIVE (Not Detect); Cannabinoid Screen Urine POSITIVE (Not Detect); Cocaine Screen Urine Not Detected (Not Detect); Fentanyl, urine Not Detected (Not Detect); Opiate Screen Urine Not Detected (Not Detect); Phencyclidine Screen Urine Not Detected (Not Detect)
--- NOTE | 2022-10-28 20:34 | MHC.RECOVSUP ---
Reason for consult: ATS bed search o Current location: 13 H o Identified substance use concern: Alcohol <del>-</del> <del>Overdose</del> - Withdrawal - Seeking ATS (detox) - Support ? Intervention: o ATS bed search started/completed/in process: Called [facility] in [place] and they asked that all paperwork be faxed to them. waiting for pt to be cleared to begin sending doc's to [facility]. <del>o</del> <del>MAT</del> <del>started</del> <del>or</del> <del>to</del> <del>be</del> <del>started</del> <del>o</del> <del>Community</del> <del>resources</del> <del>provided</del> <del>o</del> <del>Harm</del> <del>reduction</del> <del>discussion</del> ? Plan: <del>o</del> <del>Referral</del> <del>to</del> <del>CCC</del> o Bed search in progress to: [facility] o Follow up tomorrow o Patient awaiting crisis evaluation: waiting to be cleared <del>o</del> <del>Patient</del> <del>to</del> <del>follow</del> <del>up</del> <del>with</del> <del>[facility]</del> <del>after</del> <del>discharge</del> ? Additional information: Spoke with pt and she is interested in going into treatment. she requested to go to [facility] in [place]. I was able to speak with the care team and I explained what she wanted but that she needed to get cleared first before I can begin the actual bed search. I was able to call [facility] and they requested all paperwork for pt stating that she is cleared. Also waiting on toxicology. more info to follow
--- NOTE | 2022-10-28 20:48 | PHA.MEDREC ---
Pharmacy Consult ? Medication Reconciliation Pharmacy has completed the medication reconciliation.
[2022-10-28 23:39] VITALS: BP 122/66; PULSE 95; RESP 16; TEMP 36.4; O2SAT 98
[2022-10-29] MEDS: LORazepam 1 MG TABLET PO ×2 (00:47→11:34)
[2022-10-29] MEDS: cephALEXin 500 MG CAPSULE PO (00:47)
--- NOTE | 2022-10-29 01:00 | PC.NURSE ---
Pt awake and alert, reports chronic L sided back pain. Pt calm and cooperative, denies SI/HI, denies visuial/auditory hallucinations. CIWA score 5.
[2022-10-29 02:38] VITALS: BP 118/69; PULSE 89; RESP 16; TEMP 36.5; O2SAT 97
[2022-10-29 04:38] VITALS: BP 147/88; PULSE 87; RESP 18; TEMP 36.4; O2SAT 97
[2022-10-29 07:18] VITALS: BP 149/75; PULSE 101; RESP 16; O2SAT 94
--- NOTE | 2022-10-29 07:46 | PC.NURSE ---
Pt resting in bed quietly, seeking detox. Pt has been cleared by the care team
--- NOTE | 2022-10-29 11:36 | PC.NURSE ---
Medicated per MAR for anxiety, CIWA scale of 5
--- NOTE | 2022-10-29 13:53 | MHC.RECOVRN ---
This feature writer met w/ patient, patient requesting to d/c, reviewed [facility], recovery resources, detox call list. Patient encouraged to f/u w/ [facility] from the community. Patient encouraged to f/u w/ [facility], whom can help patient get into detox, provide transportation. Pt verbalized understanding. Patient took resources and put in backpack.
== END 2022-10-29 13:55 | disposition home or self-care (01) ==
PROVIDERS: Emergency Provider Emergency Medicine
DX: R45.851 Suicidal ideations (principal); F10.10 Alcohol abuse, uncomplicated; Y90.7 Blood alcohol level of 200-239 mg/100 ml; T76.21XA Adult sexual abuse, suspected, initial encounter; F41.9 Anxiety disorder, unspecified; F32.A Depression, unspecified; Z20.822 Contact with and (suspected) exposure to COVID-19; Z79.899 Other long term (current) drug therapy; Z87.820 Personal history of traumatic brain injury
CPT/HCPCS: 36415; 80053; 80307; 81001; 81025; 82077; 85025; 87635; 99285; S9485

== ENCOUNTER 2022-10-29 17:15 | Emergency (ER) | payer OTHER, SELFPAY ==
[2022-10-29 17:28] VITALS: BP 122/89; PULSE 100; RESP 16; O2SAT 96; BMI 26.5
--- NOTE | 2022-10-29 17:40 | PC.NURSE ---
Pt ambulating with steady gait to bathroom with this RN. [facility] Zain Wade [phone] in to speak with patient, left card for pt to call
--- NOTE | 2022-10-29 17:55 | ED_ITS ---
HPI - Alcohol General Chief Complaint: ETOH/Substance Use Stated Complaint: ETOH USE Time Seen by Provider: 10/29/22 17:54 Source: patient and EMS Mode of arrival: EMS Limitations: no limitations History of Present Illness HPI narrative: Patient comes to the emergency room via EMS for alcohol intoxication. Patient was [place], a bystander called EMS and patient brought the patient to the emergency room. Patient is alert and oriented x3, patient is walking around the ED, steady gait, having normal conversations with us. Patient states that she was brought to the ED against her will and would like to be discharged. Patient states that she is not interested in detox. Patient was discharged from this facility 4 hours ago. Related Data Previous Rx's Medication Instructions Recorded hydroxyzine HCl 50 mg tablet 50 mg PO Q6H PRN Anxiety 30 days 10/22/22 #90 tabs lidocaine 5 % topical patch 1 patch topical DAILY PRN 10/22/22 muscloskeletal pain 30 days #30 ea naltrexone 50 mg tablet 50 mg PO DAILY 30 days #30 tabs 10/22/22 propranolol 10 mg tablet 10 mg PO TID 30 days #90 tabs 10/22/22 quetiapine 50 mg tablet 150 mg PO BEDTIME 30 days #90 tabs 10/22/22 sertraline 50 mg tablet 50 mg PO DAILY 30 days #30 tabs 10/22/22 cephalexin 500 mg tablet 500 mg PO Q12H #14 tabs 10/28/22 Allergies Allergy/AdvReac Type Severity Reaction Status Date / Time No Known Allergies Allergy Verified 08/02/22 18:30 [No Known Allergies*] Review of Systems Review of Systems: Constitutional : No Weight loss, No Fever, No Chills, No Night Sweats, No Fatigue, No Malaise ENT/Mouth : No Hearing loss, No Ear Pain, No Nasal Congestion, No Sinus Pain, No Hoarseness, No sore throat, No Rhinorrhea, No Swallowing Difficulty Eyes: No Eye Pain, No Swelling, No Redness, No Foreign Body, No Discharge, No Vision Changes Cardiovascular : No Chest Pain, No SOB, No Dyspnea on Exertion, No Orthopnea, No Edema, No Palpitations Respiratory : No Cough, No Sputum, No Wheezing, No Smoke Exposure, No Dyspnea Gastrointestinal : No Nausea, No Vomiting, No Diarrhea, No Constipation, No abdominal Pain, No Hematochezia, No Melena Genitourinary : no irregular bleeding, No Dysuria, No Urinary Frequency, No Hematuria, No Urinary Incontinence, No Urgency, No Flank Pain, No Urinary Flow Changes, No Hesitancy Musculoskeletal : No joint pain, No Myalgias, No Joint Swelling Skin : No Skin Lesions, No rash Neuro : No Weakness, No Numbness, No Paresthesias, No Loss of Consciousness, No Dizziness, No Headache Psych : No Anxiety/Panic, No Depression, No SI/HI/AH/VH, No Social Issues, Heme/Lymph: No Bruising, No Bleeding,No Lymphadenopathy Endocrine : No Polyuria, No Polydipsia, No Temperature Intolerance [facility] Past Medical History Medical History Depression ETOH abuse Mood disorder as late effect of traumatic brain injury TBI (traumatic brain injury) Social History Social History Household Members: Other Household Members Other:: Reports has been [employer]. Housing: Apartment Do you presently have visiting nurse or other home services: No Alcohol intake: current Alcohol intake frequency: 3 or more drinks per day Alcohol type: hard liquor Patient Tobacco Use Status: Never used Tobacco e-Cigarette/Vaping Use: Never Used Second Hand Smoke Exposure: No Substance Use Type: Caffiene Advance Directives: Yes Advance Directives on File: Yes Advance Directives Date on File: 05/06/21 service: No Sexual orientation: Straight/Heterosexual Physical Exam ED Vital Signs: Vital Signs - 24 hr 10/29/22 17:28 Pulse Rate 100 Respiratory Rate 16 Blood Pressure 122/89 Pulse Oximetry 96 Oxygen Delivery Method Room Air BMI result Body Mass Index 26.5 Const Other: Appearance: Alert. Oriented X3. No acute distress. Clinically, patient is sober Eyes: Pupils equal, round and reactive to light. ENT: Pharynx normal. Neck: Normal inspection. Neck supple. No lymph nodes noted. No crepitus CVS: Normal heart rate and rhythm. Pulses normal. Normal S1 and S2 Respiratory: No respiratory distress. Breath sounds normal. No Wheezing. No rales Abdomen: Soft and nontender. No rigidity. No distention. Skin: Skin warm and dry. Normal skin color. Normal skin turgor. Extremities: No lower extremity edema. No Lacerations. No Rash Neuro: Oriented X 3. No motor deficit. No sensory deficit. Moving all extremities. No slurred speech. CN 2 through 12 grossly intact Psych: calm, cooperative, normal affect Medical Decision Making Medical Decision Making MDM Narrative: -patient is clinically sober -patient has normal speech, normal gait, unassisted. -patient refusing care, states she was brought to the ED against her will. Patient requesting to be discharged. -impression not suicidal or homicidal. -patient not interested in detox Discharge Plan Discharge Clinical Impression: Alcohol use Patient Disposition: Home, Self-Care Instructions: Abuse of Alcohol (ED) Additional Instructions: Please follow-up with your primary care physician tomorrow. If you have any worsening or new symptoms, please return to the emergency room or call 911 Prescriptions: No Action cephalexin 500 mg tablet 500 mg PO Q12H Qty: 14 0RF sertraline 50 mg Tablet 50 mg PO DAILY 30 Days Qty: 30 0RF hydroxyzine HCl 50 mg Tablet 50 mg PO Q6H PRN (Reason: Anxiety) 30 Days Qty: 90 0RF naltrexone 50 mg Tablet 50 mg PO DAILY 30 Days Qty: 30 0RF lidocaine 5 % adhesive patch,medicated 1 patch topical DAILY PRN (Reason: muscloskeletal pain) 30 Days Qty: 30 0RF Rx Instructions: leave on most painful area for up to 12 hrs propranolol 10 mg tablet 10 mg PO TID 30 Days Qty: 90 0RF quetiapine 50 mg tablet 150 mg PO BEDTIME 30 Days Qty: 90 0RF
== END 2022-10-29 18:02 | disposition home or self-care (01) ==
PROVIDERS: Emergency Provider Emergency Medicine
DX: F10.129 Alcohol abuse with intoxication, unspecified (principal); Z79.899 Other long term (current) drug therapy; Y90.9 Presence of alcohol in blood, level not specified; Z71.41 Alcohol abuse counseling and surveillance of alcoholic
CPT/HCPCS: 99283

== ENCOUNTER 2022-10-29 21:01 | Emergency (ER) | payer OTHER, SELFPAY ==
--- NOTE | 2022-10-29 21:22 | ED_ITS ---
HPI - Alcohol General Chief Complaint: Psychiatric Symptoms Stated Complaint: SI,ETOH Time Seen by Provider: 10/29/22 21:15 Source: patient and EMS Mode of arrival: EMS Limitations: other (Intoxicated) History of Present Illness HPI narrative: Patient comes in the emergency room via EMS. Patient was discharged approximately 3-1/2 hours ago. Patient this time comes via EMS for making suicidal statements while intoxicated. Patient was found in a [employer] [place] shop store wondering intoxicated, when EMS arrived, he told the EMS crew I want to kill myself . This is the patient's 3rd visit today for the same complaint. Related Data Previous Rx's Medication Instructions Recorded hydroxyzine HCl 50 mg tablet 50 mg PO Q6H PRN Anxiety 30 days 10/22/22 #90 tabs lidocaine 5 % topical patch 1 patch topical DAILY PRN 10/22/22 muscloskeletal pain 30 days #30 ea naltrexone 50 mg tablet 50 mg PO DAILY 30 days #30 tabs 10/22/22 propranolol 10 mg tablet 10 mg PO TID 30 days #90 tabs 10/22/22 quetiapine 50 mg tablet 150 mg PO BEDTIME 30 days #90 tabs 10/22/22 sertraline 50 mg tablet 50 mg PO DAILY 30 days #30 tabs 10/22/22 cephalexin 500 mg tablet 500 mg PO Q12H #14 tabs 10/28/22 Allergies Allergy/AdvReac Type Severity Reaction Status Date / Time No Known Allergies Allergy Verified 10/29/22 21:23 [No Known Allergies*] Review of Systems Review of Systems: Yes Other (Intoxicated) [facility] Past Medical History Medical History Depression ETOH abuse Mood disorder as late effect of traumatic brain injury TBI (traumatic brain injury) Social History Social History Household Members: Other Household Members Other:: Reports has been [employer] surfing. Housing: Apartment Do you presently have visiting nurse or other home services: No Alcohol intake: current Alcohol intake frequency: 3 or more drinks per day Alcohol type: hard liquor Patient Tobacco Use Status: Never used Tobacco e-Cigarette/Vaping Use: Never Used Second Hand Smoke Exposure: No Substance Use Type: Caffiene Advance Directives: Yes Advance Directives on File: Yes Advance Directives Date on File: 05/06/21 service: No Sexual orientation: Straight/Heterosexual Physical Exam ED Vital Signs: Vital Signs - 24 hr 10/29/22 21:23 10/29/22 22:57 Pulse Rate 120 H 99 Respiratory Rate 20 18 Blood Pressure 118/85 139/79 Pulse Oximetry 99 95 Oxygen Delivery Method Room Air Room Air BMI result Body Mass Index 31.1 Const Other: Appearance: Alert. Intoxicated Agitated, combative, very hard to redirect Eyes: Pupils equal, round and reactive to light. ENT: Pharynx normal. Neck: Normal inspection. Neck supple. No lymph nodes noted. No crepitus CVS: Normal heart rate and rhythm. Pulses normal. Normal S1 and S2 Respiratory: No respiratory distress. Breath sounds normal. No Wheezing. No rales Abdomen: Soft and nontender. No rigidity. No distention. Skin: Skin warm and dry. Normal skin color. Normal skin turgor. Extremities: No lower extremity edema. No Lacerations. No Rash Neuro: Cranial nerves 2-12 grossly intact Psych: Patient yelling, combative Course Course Course Narrative: -patient is combative, trying to push staff -patient eventually became redirectable, patient given p.o. Ativan per patient's request. Agreeable to stay and be seen by [facility]. -care consult pending -physician observation started at 23:40 Medical Decision Making Lab Data Labs: Lab Results 10/29/22 10/29/22 Range/Units 22:02 22:02 Ethyl Alcohol 217 mg/dL COVID-19 (GARCIA) Negative (Negative) COVID-19 Clin Com See Note Medications Administered Discontinued Medications Generic Name Dose Route Start Last Admin Trade Name Freq PRN Reason Stop Dose Admin Diphenhydramine HCl 50 mg 10/29/22 21:16 10/29/22 22:35 Diphenhydramine Hcl 50 Mg/Ml Vial IM 10/29/22 21:17 Not Given ONCE ONE Haloperidol Lactate 5 mg 10/29/22 21:16 10/29/22 22:36 Haloperidol Lactate 5 Mg/Ml Vial IM 10/29/22 21:17 Not Given STAT STA Lorazepam 2 mg 10/29/22 21:16 10/29/22 22:36 Lorazepam 2 Mg/Ml Vial IM 10/29/22 21:17 Not Given STAT STA Discharge Plan Discharge Clinical Impression: Alcohol dependence Patient Disposition: Still a Patient Prescriptions: No Action cephalexin 500 mg tablet 500 mg PO Q12H Qty: 14 0RF sertraline 50 mg Tablet 50 mg PO DAILY 30 Days Qty: 30 0RF hydroxyzine HCl 50 mg Tablet 50 mg PO Q6H PRN (Reason: Anxiety) 30 Days Qty: 90 0RF naltrexone 50 mg Tablet 50 mg PO DAILY 30 Days Qty: 30 0RF lidocaine 5 % adhesive patch,medicated 1 patch topical DAILY PRN (Reason: muscloskeletal pain) 30 Days Qty: 30 0RF Rx Instructions: leave on most painful area for up to 12 hrs propranolol 10 mg tablet 10 mg PO TID 30 Days Qty: 90 0RF quetiapine 50 mg tablet 150 mg PO BEDTIME 30 Days Qty: 90 0RF
[2022-10-29 21:23] VITALS: BP 118/85; PULSE 120; RESP 20; O2SAT 99; BMI 31.1
--- NOTE | 2022-10-29 21:35 | PC.NURSE ---
PT continues to be frustrated with this RN and staff regarding events that occured immediately upon her arrival; RN was not present for this and cannot speak to the events without it being second hand. Pt seemed to be increasingly frustrated with the presence of security and extra staff at bedside. This RN presented, provided privacy and attempted to decrease stimulation by closing the curtain. RN held off on mold insert changer to assist with de-escalation; mold insert changer will be required for safety. Pt not keeping eye contact, rambling off regarding her frustration with security and talking negatively about them. Pt denies pain/discomfort of any sort, denies SI/HI (noted to sarcastically be making statements denying the SI), states she is unsure of why she is here, reports not recalling the events of the night and initially denying any ETOH but later telling or Pod RN that after discharge earlier she went to the bar to drink with friends. PT aware of current Section 12 status with education provided on what that is/means; pt intermittently tearful when she isn't upset. Sitter present outside of room, pt currently calmly speaking with POD RN and agreeable to mold insert changer. Pt seems to respond well to POD nurse as she was noted to be calm upon his arrival. The pt has been offered food and beverage which she has denied from this RN but POD RN was able to provide her with gingerale.
[2022-10-29 22:24] LABS: IDNOW Serial# 55D5AD1C
[2022-10-29 22:25] LABS: COVID-19 Test Negative (Negative)
--- NOTE | 2022-10-29 22:27 | PC.NURSE ---
pt continues to rest comfortably and quietly in stretcher without distress. Pt prefers to have ativan PO rather than IM and Dr Corea aware and orders to be adjusted. Patient observer remains outside of room with full visualization of the patient; outside of room due to increased aggitation and escalation with presene in the room.
[2022-10-29 22:32] LABS: Ethanol 217 mg/dL
--- NOTE | 2022-10-29 22:36 | PC.NURSE ---
RN to bedside for Ativan admin per order. Upon arrival to bedside pt found resting comfortably in stretcher with eyes closed, respirations even and unlabored and appeared to be sleeping. Pt required both verbal and light physical stimulation before briefly waking; RN made presence known and informed pt of ativan tablets to which the pt just shrugged off prior to drifting back to sleep. RN documented against the previous meds ordered per convo with MD Corea, Ativan PO to be held at that time as pt calm, cooperative, resting comfortably and not exhibiting s/s of anxiety or withdrawal.
[2022-10-29 22:57] VITALS: BP 139/79; PULSE 99; RESP 18; O2SAT 95
--- NOTE | 2022-10-29 23:30 | PC.NURSE ---
RN able to confirm Keflex 500mg BID as a discharge prescription provided earlier today for UTI. MD Corea made aware and new orders obtained to continue with ABX regimen
--- NOTE | 2022-10-30 | PC.NURSE ---
This insurance writer assumed care of this Pt at 2300. Pt laying on stretcher appearing to be sleeping, awaken up verbal stimuli and light touch, calm and cooperative. Pt reports chronic back pain. Denies any anxiety at this time. Slight hands shaking noted. Pt denies SI/HI, tactile/auditory disturbances at this time. 1:1 sitter outside of room.
[2022-10-30] MEDS: cephALEXin 500 MG CAPSULE PO ×2 (00:14→09:35)
[2022-10-30 00:18] VITALS: BP 120/72; PULSE 102; RESP 16; TEMP 36.9; O2SAT 94
[2022-10-30 02:20] VITALS: BP 123/79; PULSE 76; RESP 16; TEMP 36.4; O2SAT 96
[2022-10-30] MEDS: LORazepam 1 MG TABLET 2 MG PO ×2 (04:46→09:34)
--- NOTE | 2022-10-30 04:49 | PC.NURSE ---
Patient just got transferred to ED POD from Main ED, ambulated independently, gait intact, Ativan 2 mg po administered fro comfort/pending effect, urine sample pending for tox screen, care consult ordered/pending evaluation, med rec completed/pending provider's approval, VSS, asymptomatic ETOH withdrawal at this time, luzn was sectioned by ED provider for suicidality, behavior non concerning at this time, will continue to monitor.
--- NOTE | 2022-10-30 07:24 | PC.NURSE ---
patient appears to remain asleep at present respirations are even and unlabored patient appears in no distress
[2022-10-30 09:32] VITALS: BP 149/81; PULSE 104; RESP 18; TEMP 37.1; O2SAT 95
== END 2022-10-30 11:27 | disposition home or self-care (01) ==
PROVIDERS: Emergency Provider Emergency Medicine
DX: F10.229 Alcohol dependence with intoxication, unspecified (principal); Y90.7 Blood alcohol level of 200-239 mg/100 ml; Z20.822 Contact with and (suspected) exposure to COVID-19; Z20.828 Contact with and (suspected) exposure to other viral communicable diseases; Z71.41 Alcohol abuse counseling and surveillance of alcoholic; Z79.899 Other long term (current) drug therapy
CPT/HCPCS: 36415; 82077; 87635; 99285; S9485

== ENCOUNTER 2022-10-30 19:08 | Emergency (ER) | payer OTHER, SELFPAY ==
[2022-10-30 19:16] VITALS: BP 139/93; PULSE 105; RESP 17; TEMP 36.2; O2SAT 96; BMI 30.2
--- NOTE | 2022-10-30 19:39 | MHC.CARE ---
Per CARE road supervisor of engines, CARE Team should not be consulted for an evaluation due to pt admitting that she endorses SI to EMS with the intent to stay the night . Pt was in this ED a total of 3x yesterday. Recovery Team and CARE Team have both been involved with pt w/ no success as pt declines any tx once sober. Pt has been presented to detox on multiple occasions however once sober wants to leave.
[2022-10-30 19:54] LABS: COVID-19 Test Negative (Negative); IDNOW Serial# 16C4AD1C
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
--- NOTE | 2022-10-30 20:50 | MHC.EDTECH ---
t/w attempted to obtain bloodwork from pt, pt stated you're not going to suck anymore blood from me. pt became agitated when t/w attempted to educate pt on importance of lab draw. RN AWARE.
--- NOTE | 2022-10-30 21:19 | MHC.CARE ---
CARE Team reached out to pt's son Donaldo to gauge his willingness and commitment to pts substance use and recommend pursing a section 35. No answer awaiting a call back.
--- NOTE | 2022-10-30 21:23 | MHC.CARE ---
CARE Plan will be created at this time
--- NOTE | 2022-10-30 22:56 | MHC.CARE ---
CARE Team can assess pt when lab work is completed and pt is engageable.
--- NOTE | 2022-10-31 05:43 | PC.NURSE ---
Patient slept through the night, no distress observed/reported, asymptomatic of withdrawal, labs pending due to patient's refusal, care consult ordered/pending evaluation, med rec completed/pending provider's approval, behavior at arrival was combative due to ETOH on board, will continue to monitor.
[2022-10-31 06:00] VITALS: BP 137/89; PULSE 111; RESP 18; TEMP 36.8; O2SAT 98
[2022-10-31 06:54] LABS: Amphetamine Screen Urine Not Detected (Not Detect); Barbiturates, Urine Not Detected (Not Detect); Benzodiazepines Screen Urine POSITIVE (Not Detect); Cannabinoid Screen Urine Not Detected (Not Detect); Cocaine Screen Urine Not Detected (Not Detect); Fentanyl, urine Not Detected (Not Detect); Opiate Screen Urine Not Detected (Not Detect); Phencyclidine Screen Urine Not Detected (Not Detect)
[2022-10-31 07:00] LABS: Alanine Aminotransferase 25 U/L (0-31); Albumin Level 3.7 g/dL (3.5-5.0); Alkaline Phosphatase 80 U/L (39-117); Anion Gap 15 (12-20); Aspartate Amino Transferase 33 U/L (5-31); Bilirubin Direct 0.2 mg/dL (0.0-0.5); Bilirubin Total 0.7 mg/dL (0.0-1.0); Blood Urea Nitrogen 14 mg/dL (9-16); Calcium 9.1 mg/dL (8.4-10.2); Carbon Dioxide 26 mmol/L (22-29); Chloride 107 mmol/L (96-108); Creatinine Clr Calc Pharmacy 79.6; Estimated Glomerular Filt Rate > 60; Glucose Random 118 mg/dL (60-115); Lipase 46 U/L (8-78); Potassium 3.9 mmol/L (3.3-5.1); Sodium 144 mmol/L (135-145); Total Protein 6.9 g/dL (6.5-8.0)
[2022-10-31 07:01] LABS: Ethanol < 10 mg/dL
[2022-10-31] MEDS: diazePAM 2 MG TABLET 0.5 MG PO (07:17)
== END 2022-10-31 09:25 | disposition home or self-care (01) ==
PROVIDERS: Emergency Provider Student in an Organized Health Care Education/Training Program
DX: F10.20 Alcohol dependence, uncomplicated (principal); Y90.0 Blood alcohol level of less than 20 mg/100 ml; F32.A Depression, unspecified; Z20.822 Contact with and (suspected) exposure to COVID-19; Z87.820 Personal history of traumatic brain injury; Z79.899 Other long term (current) drug therapy
CPT/HCPCS: 36415; 80048; 80076; 80307; 82077; 83690; 87635; 99284

== ENCOUNTER 2022-10-31 13:52 | Emergency (ER) | payer OTHER, SELFPAY ==
[2022-10-31 14:10] VITALS: BP 123/75; BP 180/120; PULSE 93; PULSE 95; RESP 16; TEMP 36.5; O2SAT 95; BMI 26.1
--- NOTE | 2022-10-31 14:29 | MHC.CARE ---
CARE Team left message with Melchor &?Husam Coates Esq.regarding Pt returning to the ED.
--- NOTE | 2022-10-31 14:31 | ED_ITS ---
HPI - Psych General Chief Complaint: ETOH/Substance Use Stated Complaint: etoh Time Seen by Provider: 10/31/22 14:05 Source: EMS Mode of arrival: EMS Limitations: altered mental status History of Present Illness HPI Narrative: Pt is a 56 y/o female with a significant alcohol abuse history, cc I want to kill myself, put me at the next level, I'm sick of this . She was brought in by EMS. When asked what she was here for, she stated, I'm drunk and admits to being depressed and suicidal with no plan. She denies any physical complaints and denies eating or drinking anything other than alcohol. Pt not willing to provide information on quanity or type of alcohol. MD complaint: suicidal ideation, feels depressed, altered mental status and alcohol abuse Onset (ago): day(s) (1) Duration: constant History of same: Yes Relieving factors: none Exacerbating factors: none Context: recent alcohol abuse Associated psychiatric symptoms: depression Associated symptoms: denies other symptoms Treatments prior to arrival: none Related Data Home Medications Medication Instructions Recorded Confirmed propranolol 10 mg tablet 1 tab PO TID 10/30/22 10/31/22 quetiapine 50 mg tablet 150 mg PO BEDTIME 10/30/22 10/31/22 sertraline 25 mg tablet 1 tab PO DAILY 10/30/22 10/31/22 Previous Rx's Medication Instructions Recorded hydroxyzine HCl 50 mg tablet 50 mg PO Q6H PRN Anxiety 30 days 10/22/22 #90 tabs Allergies Allergy/AdvReac Type Severity Reaction Status Date / Time No Known Allergies Allergy Verified 10/29/22 21:23 [No Known Allergies*] Review of Systems Review of Systems: Yes all other systems are reviewed and are negative Constitutional: Constitutional: Reports no additional constitutional complaints, Denies body ache(s), Denies chills, Denies fever(s), Denies headache(s) and Denies weakness Eyes: Eyes: Reports no additional eye complaints and Denies change in vision ENT: Reports system reviewed and no additional complaints, except as documented, Denies dizziness, Denies headache(s), Denies nasal congestion, Denies nasal discharge and Denies neck pain Cardiovascular: Cardiovascular: Reports no additional cardiovascular complaints, Denies chest pain, Denies leg edema and Denies dyspnea Respiratory: Respiratory: Reports no additional respiratory complaints, Denies cough and Denies dyspnea Gastrointestinal: Gastrointestinal: Reports no additional gastrointestinal complaints, Denies abdominal pain, Denies diarrhea, Denies nausea and Denies vomiting Genitourinary: Genitourinary: Reports no additional female genitourinary complaints and Denies urinary incontinence Musculoskeletal: Musculoskeletal: Reports no additional musculoskeletal complaints, Denies back pain, Denies arthralgias, Denies joint swelling, Denies neck pain, Denies numbness and Denies tingling Integumentary/Breasts: Skin/Breast: Reports system reviewed and no additional complaints, except as docu and Denies rash Neurologic: Reports system reviewed and no additional complaints, except as documented, Denies Abnormal speech present, Denies dizziness, Denies head ache(s), Denies numbness, Denies tingling and Denies weakness Psychiatric: Psychiatric: Reports depression and Reports suicidal ideation PMF Past Medical History Attestation statement: The following information was validated with the patient. Source: old records reviewed and nursing notes reviewed Medical History Depression ETOH abuse Mood disorder as late effect of traumatic brain injury TBI (traumatic brain injury) Social History Social History Household Members: Other Household Members Other:: Reports has been [employer] surfing. Housing: Apartment Do you presently have visiting nurse or other home services: No Alcohol intake: current Alcohol intake frequency: 3 or more drinks per day Alcohol type: hard liquor Patient Tobacco Use Status: Never used Tobacco Smoked in Last 30 Days: No e-Cigarette/Vaping Use: Never Used Second Hand Smoke Exposure: No Use of substances other than those prescribed or required for medical reasons: Refusing to respond Substance Use Type: Caffiene Advance Directives: Yes Advance Directives on File: Yes Advance Directives Date on File: 05/06/21 service: No Sexual orientation: Straight/Heterosexual Physical Exam Vital Signs: Vital Signs: Last Vital Signs Temp 97.7 F 10/31/22 14:10 Pulse 93 10/31/22 14:10 Resp 16 10/31/22 14:10 BP 123/75 10/31/22 14:10 Pulse Ox 95 10/31/22 14:10 O2 Del Method 10/31/22 14:10 BMI result Body Mass Index 26.1 Const: General: no acute distress and intoxicated appearing Nutritional Appearance: average body habitus Orientation/consciousness: patient oriented x3 Limitations: altered mental status HEENT: Head: Yes normal to inspection Ears: hearing grossly normal bi laterally General nose exam: Normal external nose present Face and sinus: Yes normal facial exam Mouth: Normal oral and palatal mucosa present Throat: Yes posterior oropharynx normal Eyes: General: appearance normal, both eyes and all related structures Pupils: Equal, round and reactive pupils present Neck: Neck: Yes normal visual inspection Chest: Chest palpation & inspection: normal inspection of the chest Resp: Effort & Inspection: normal respiratory effort Auscultation: clear to auscultation bilaterally Cardio: Rate: regular rate Rhythm: regular rhythm Peripheral pulses: Peripheral pulses 2+ throughout GI: Inspection: Yes normal to inspection Palpation (GI): Soft to palpation and nontender Auscultation: normal bowel sounds Back/Spine/Pelvis: Thoracic/Lumbar Spine: thoracic and lumbar spine normal to inspection Skin: General skin exam: no rashes or lesions noted Neuro: General: patient oriented x3, moves all extremities, no focal motor deficits and normal sensation to monofilament Cranial nerves: Yes Equal, round and reactive pupils present Cognition (Neuro): normal cognition Speech: No Abnormal speech present Gait exam (Neuro): Normal gait present Motor exam (neuro): 5/5 motor strength present throughout Sensory Exam: Normal double simultaneous stimulation for sensation Extrem: General: Yes normal to inspection, Yes no pedal edema and Yes no calf tenderness Course Course Course Narrative: Per CARE team plan for section 35 tomorrow AM. Section 12 placed on chart until seen by care team tomorrow morning. Placed in physician observation pending disposition. Medical Decision Making Medical Decision Making [facility] Narrative: 56-year-old female with a history of alcohol abuse presents to the emergency room intoxicated with complaints of depression and suicidal thoughts with no plan. No physical complaints No concern for acute ingestion or trauma Will obtain labs, drug screen, COVID screen, crisis consulation Differential Diagnosis Differential Diagnoses: The differential diagnosis associated with the presentation includes alcoho intoxication Lab Data [facility] Lab Attestation statement: I reviewed the patient's lab results. 10/31/22 15:13 10/31/22 15:13 Labs: Lab Results 10/31/22 10/31/22 10/31/22 Range/Units 14:27 14:27 15:13 WBC (4.8-10.8) X10*3/uL RBC (4.20-5.50) X10*6/uL Hgb (12.0-16.0) g/dl Hct (37.0-47.0) % MCV (80.0-98.0) fL MCH (27.0-33.0) pg MCHC (31.0-35.0) g/dl RDW (11.0-16.0) % Plt Count (160-400) X10*3/uL MPV (9.4-12.3) fL Immature Gran % (Auto) (0.0-0.4) % Neut % (Auto) (45-73) % Lymph % (Auto) (20-40) % [place] % (Auto) (2-11) % Eos % (Auto) (0-4) % Baso % (Auto) (0-2) % Lymph # (Auto) (1.2-4.9) X10*3/uL [place] # (Auto) (0.1-1.2) X10*3/uL Eos # (Auto) (0.0-0.4) X10*3/uL Baso # (Auto) (0.0-0.2) X10*3/uL Abs Immat Gran (auto) (0.00-0.03) X10*3/uL Absolute Neuts (auto) (2.0-8.3) x10*3/uL Absolute Nucleated RBC (0.0-0.012) X10*3/uL Nucleated RBC % (auto) (0.0-0.2) /100WBC Sodium 146 H (135-145) mmol/L Potassium 3.2 L (3.3-5.1) mmol/L Chloride 106 (96-108) mmol/L Carbon Dioxide 27 (22-29) mmol/L Anion Gap 16 (12-20) BUN 10 (9-16) mg/dL Creatinine 0.78 (0.5-1.4) mg/dL Estim Creat Clear Calc 83.4 Estimated GFR > 60 Random Glucose 114 (60-115) mg/dL Calcium 9.2 (8.4-10.2) mg/dL Total Bilirubin 0.6 (0.0-1.0) mg/dL Direct Bilirubin 0.2 (0.0-0.5) mg/dL AST 30 (5-31) U/L ALT 26 (0-31) U/L Alkaline Phosphatase 81 (39-117) U/L Total Protein 7.4 (6.5-8.0) g/dL Albumin 3.9 (3.5-5.0) g/dL Urine Color Yellow Urine Appearance Clear Urine pH 6.5 (5.0-9.0) Ur Specific [place] <= 1.005 (1.005-1.025) Urine Protein Negative (Neg-Trace) mg/dL Urine Glucose (UA) Negative (Negative) mg/dL Urine Ketones Negative (Negative) mg/dL Urine Blood Negative (Negative) Urine Nitrite Negative (Negative) Ur Leukocyte Esterase Trace H (Negative) Urine RBC 0-2 (0-2) /HPF Urine WBC 0-5 (0-5) /HPF Ur Squamous Epith Cells 0-2 (0-2) /HPF Urine Bacteria None Seen (None Seen) Hyaline Casts 0-2 (0-2) /LPF Urine Opiates Screen Not Detected (Not Detect) Urine Fentanyl Screen Not Detected (Not Detect) Ur Barbiturates Screen Not Detected (Not Detect) Ur Phencyclidine Scrn Not Detected (Not Detect) Ur Amphetamines Screen Not Detected (Not Detect) U Benzodiazepines Scrn Not Detected (Not Detect) Urine Cocaine Screen Not Detected (Not Detect) U Marijuana (THC) Screen Not Detected (Not Detect) Ethyl Alcohol 279 mg/dL COVID-19 (GARCIA) (Negative) COVID-19 Clin Com 10/31/22 10/31/22 Range/Units 15:13 15:13 WBC 7.0 (4.8-10.8) X10*3/uL RBC 3.94 L (4.20-5.50) X10*6/uL Hgb 12.0 (12.0-16.0) g/dl Hct 36.6 L (37.0-47.0) % MCV 92.9 (80.0-98.0) fL MCH 30.5 (27.0-33.0) pg MCHC 32.8 (31.0-35.0) g/dl RDW 14.9 (11.0-16.0) % Plt Count 449 H (160-400) X10*3/uL MPV 9.1 L (9.4-12.3) fL Immature Gran % (Auto) 0.3 (0.0-0.4) % Neut % (Auto) 47.1 (45-73) % Lymph % (Auto) 42.3 H (20-40) % [place] % (Auto) 8.0 (2-11) % Eos % (Auto) 1.3 (0-4) % Baso % (Auto) 1.0 (0-2) % Lymph # (Auto) 3.0 (1.2-4.9) X10*3/uL [place] # (Auto) 0.6 (0.1-1.2) X10*3/uL Eos # (Auto) 0.1 (0.0-0.4) X10*3/uL Baso # (Auto) 0.1 (0.0-0.2) X10*3/uL Abs Immat Gran (auto) 0.02 (0.00-0.03) X10*3/uL Absolute Neuts (auto) 3.3 (2.0-8.3) x10*3/uL Absolute Nucleated RBC 0.000 (0.0-0.012) X10*3/uL Nucleated RBC % (auto) 0.0 (0.0-0.2) /100WBC Sodium (135-145) mmol/L Potassium (3.3-5.1) mmol/L Chloride (96-108) mmol/L Carbon Dioxide (22-29) mmol/L Anion Gap (12-20) BUN (9-16) mg/dL Creatinine (0.5-1.4) mg/dL Estim Creat Clear Calc Estimated GFR Random Glucose (60-115) mg/dL Calcium (8.4-10.2) mg/dL Total Bilirubin (0.0-1.0) mg/dL Direct Bilirubin (0.0-0.5) mg/dL AST (5-31) U/L ALT (0-31) U/L Alkaline Phosphatase (39-117) U/L Total Protein (6.5-8.0) g/dL Albumin (3.5-5.0) g/dL Urine Color Urine Appearance Urine pH (5.0-9.0) Ur Specific [place] (1.005-1.025) Urine Protein (Neg-Trace) mg/dL Urine Glucose (UA) (Negative) mg/dL Urine Ketones (Negative) mg/dL Urine Blood (Negative) Urine Nitrite (Negative) Ur Leukocyte Esterase (Negative) Urine RBC (0-2) /HPF Urine WBC (0-5) /HPF Ur Squamous Epith Cells (0-2) /HPF Urine Bacteria (None Seen) Hyaline Casts (0-2) /LPF Urine Opiates Screen (Not Detect) Urine Fentanyl Screen (Not Detect) Ur Barbiturates Screen (Not Detect) Ur Phencyclidine Scrn (Not Detect) Ur Amphetamines Screen (Not Detect) U Benzodiazepines Scrn (Not Detect) Urine Cocaine Screen (Not Detect) U Marijuana (THC) Screen (Not Detect) Ethyl Alcohol mg/dL COVID-19 (GARCIA) Negative (Negative) COVID-19 Clin Com See Note Discharge Plan Discharge Clinical Impression: Alcoholic intoxication Patient Disposition: Still a Patient Prescriptions: No Action hydroxyzine HCl 50 mg Tablet 50 mg PO Q6H PRN (Reason: Anxiety) 30 Days Qty: 90 0RF sertraline 25 mg tablet 1 tab PO DAILY propranolol 10 mg tablet 1 tab PO TID quetiapine 50 mg tablet 150 mg PO BEDTIME Interventions: [place]-Suicide Risk Severity Scale Last Done: 10/31/22 14:15
[2022-10-31 14:38] LABS: Appearance Urine Clear; Color Urine Yellow; Glucose Urine UA Negative (Negative); Leukocyte Esterase Urine Trace (Negative); Nitrite Urine Negative (Negative); PH 6.5 (5.0-9.0); Specific Gravity - Urine <= 1.005 (1.005-1.025); UMIC TRIGGER UACC YES; Urine Blood Negative (Negative); Urine Ketones Negative (Negative); Urine Protein Negative (Neg-Trace)
--- NOTE | 2022-10-31 14:38 | PC.NURSE ---
was discharged this morning, has returned ETOH making SI statement with plan to drink herself to
[2022-10-31 14:43] LABS: Bacteria Urine None Seen (None Seen); Hyaline Casts Urine 0-2 /LPF (0-2); RBC Urine 0-2 /HPF (0-2); Squamous Epithelial Cell Urine 0-2 /HPF (0-2); WBC Urine 0-5 /HPF (0-5)
[2022-10-31 14:50] LABS: Amphetamine Screen Urine Not Detected (Not Detect); Barbiturates, Urine Not Detected (Not Detect); Benzodiazepines Screen Urine Not Detected (Not Detect); Cannabinoid Screen Urine Not Detected (Not Detect); Cocaine Screen Urine Not Detected (Not Detect); Fentanyl, urine Not Detected (Not Detect); Opiate Screen Urine Not Detected (Not Detect); Phencyclidine Screen Urine Not Detected (Not Detect)
[2022-10-31 15:19] LABS: MANUAL DIFF FLAG NO
[2022-10-31 15:31] LABS: Basophils Absolute Auto 0.1 X10*3/uL (0.0-0.2); Eosinophils Absolute Auto 0.1 X10*3/uL (0.0-0.4); Eosinophils Percent Auto 1.3 % (0-4); Hematocrit 36.6 % (37.0-47.0); Imm Gran Abs Auto 0.02 X10*3/uL (0.00-0.03); Imm Gran Pct Auto 0.3 % (0.0-0.4); Lymphocytes Percent Auto 42.3 % (20-40); Mean Corpuscular HGB Conc 32.8 g/dl (31.0-35.0); Mean Corpuscular Hemoglobin 30.5 pg (27.0-33.0); Mean Corpuscular Volume 92.9 fL (80.0-98.0); Mean Platelet Volume 9.1 fL (9.4-12.3); Monocytes Absolute Auto 0.6 X10*3/uL (0.1-1.2); Neutrophils Absolute Auto 3.3 x10*3/uL (2.0-8.3); Neutrophils Percent Auto 47.1 % (45-73); Platelet Count 449 X10*3/uL (160-400); Red Blood Count 3.94 X10*6/uL (4.20-5.50); Red Cell Distribution Width 14.9 % (11.0-16.0)
[2022-10-31 15:34] LABS: COVID-19 Test Negative (Negative); IDNOW Serial# BCCEAD1C
[2022-10-31 15:38] LABS: Alanine Aminotransferase 26 U/L (0-31); Albumin Level 3.9 g/dL (3.5-5.0); Alkaline Phosphatase 81 U/L (39-117); Anion Gap 16 (12-20); Aspartate Amino Transferase 30 U/L (5-31); Bilirubin Direct 0.2 mg/dL (0.0-0.5); Bilirubin Total 0.6 mg/dL (0.0-1.0); Blood Urea Nitrogen 10 mg/dL (9-16); Calcium 9.2 mg/dL (8.4-10.2); Carbon Dioxide 27 mmol/L (22-29); Chloride 106 mmol/L (96-108); Creatinine Clr Calc Pharmacy 83.4; Estimated Glomerular Filt Rate > 60; Ethanol 279 mg/dL; Glucose Random 114 mg/dL (60-115); Potassium 3.2 mmol/L (3.3-5.1); Sodium 146 mmol/L (135-145); Total Protein 7.4 g/dL (6.5-8.0)
[2022-10-31 21:55] VITALS: BP 140/87; PULSE 101; RESP 16; TEMP 36.8; O2SAT 96
[2022-10-31] MEDS: Propranolol HCL 10 MG TABLET PO (22:05)
[2022-10-31] MEDS: QUEtiapine Fumarate 50 MG TABLET 150 MG PO (22:05)
[2022-10-31] MEDS: LORazepam 1 MG TABLET 2 MG PO (22:05)
[2022-11-01 02:10] VITALS: BP 132/72; PULSE 94; RESP 17; O2SAT 96
--- NOTE | 2022-11-01 06:20 | PC.NURSE ---
Patient slept through the night, no distress observed/reported, behavior non concerning, medication compliant, Ativan 2 mg PO administered @ 2205 with + effect, Section 35 in the process/care team coordinating the plan, VSS, will continue to monitor.
[2022-11-01 07:14] VITALS: BP 135/72; PULSE 98; RESP 18; TEMP 36.1; O2SAT 96
[2022-11-01] MEDS: Propranolol HCL 10 MG TABLET PO (09:58)
[2022-11-01] MEDS: Sertraline HCL 25 MG TABLET PO (09:59)
--- NOTE | 2022-11-01 10:00 | MHC.CARE ---
Dr. Kamara signed [employer] and Petition for Section 35 application - late entry
[2022-11-01 11:10] VITALS: BP 142/98; PULSE 93; RESP 18; TEMP 36.7; O2SAT 94
--- NOTE | 2022-11-01 11:12 | MHC.CARE ---
Dr. Kamara completed court appearance
[2022-11-01] MEDS: LORazepam 1 MG TABLET 2 MG PO (11:27)
--- NOTE | 2022-11-01 11:27 | MHC.CARE ---
CARE Team received call from [place] and [place]- warrant was issued for Pt.
--- NOTE | 2022-11-01 18:21 | MHC.CARE ---
Pt was picked up on [address]A and transported to [facility] in [place].
== END 2022-11-01 12:58 ==
PROVIDERS: Nurse Practitioner Family; Emergency Provider Emergency Medicine Emergency Medical Services
DX: F10.129 Alcohol abuse with intoxication, unspecified (principal); Y90.8 Blood alcohol level of 240 mg/100 ml or more; Z20.822 Contact with and (suspected) exposure to COVID-19; Z20.828 Contact with and (suspected) exposure to other viral communicable diseases; Z79.899 Other long term (current) drug therapy
CPT/HCPCS: 36415; 80048; 80076; 80307; 81001; 82077; 85025; 87635; 99285

== ENCOUNTER 2023-01-30 22:04 | Emergency (ER) | payer OTHER, SELFPAY ==
--- NOTE | ~2023-01-30 | CT_ITS ---
EXAMINATION: CT HEAD WITHOUT CONTRAST CT CERVICAL SPINE WITHOUT CONTRAST CLINICAL INFORMATION: Fall. Drinking. COMPARISON: CT head from 07/11/2022. TECHNIQUE: Contiguous axial imaging was performed from the skull base to vertex without intravenous administration of contrast. Contiguous axial imaging was performed from the upper chest through the skull base without intravenous administration of contrast. Coronal and sagittal reformats were obtained at the acquisition workstation. This CT examination was performed using dose optimization techniques as appropriate, variously including the following: *Automated exposure control. *Adjustment of mA and/or kV according to patient size (this includes techniques or standardized protocols for targeted exams where dose is matched to indication/reason for exam; i.e. extremities or head). *Use of iterative reconstruction technique. DLP: 991 mGy-cm FINDINGS: Head: There are chronic regions of encephalomalacia within the lateral aspects of the bilateral temporal lobes with associated volume loss. No additional loss of trevino-white matter differentiation. No evidence of acute intracranial hemorrhage. There is no abnormal attenuation within the brain parenchyma. The ventricles are normal in morphology and size. No evidence for obstructive hydrocephalus. No abnormal mass effect or midline shift. No extra-axial fluid collections. No acute soft tissue or osseous abnormalities. The mastoid air cells and visualized paranasal sinuses are clear. Cervical Spine: The atlantooccipital and atlantoaxial articulations remain well aligned. Moderate degenerative arthropathy of the atlantodental articulation. Mild reversal the normal cervical lordosis centered on C5. Mild degenerative anterolistheses of C3 on C4 and C4 on C5. Otherwise, there is anatomic alignment of the vertebral bodies and posterior elements. No evidence of acute fracture or subluxation. The vertebral body heights are maintained. Moderate degenerative disc disease from C4-C7. Facet and uncovertebral joint arthropathy leads osseous encroachment on the neural foramina from C3-C6. There is no prevertebral soft tissue swelling. The thyroid gland and remaining cervical soft tissues are within normal limits. The lung apices demonstrate no abnormalities. CT/CT cervical spine wo IV con IMPRESSION: 1. No evidence of acute intracranial hemorrhage or edematous territorial infarction. 2. Chronic regions of encephalomalacia within the lateral aspects of the bilateral temporal lobes. 3. No evidence of acute fracture or traumatic subluxation of the cervical spine. Moderate multilevel degenerative spondyloarthropathy of the cervical spine.
[2023-01-30 22:14] VITALS: BP 148/75; BP 164/86; PULSE 79; PULSE 95; RESP 16; TEMP 36.8; O2SAT 95; O2SAT 96; BMI 31.8
--- NOTE | 2023-01-30 23:40 | ED_ITS ---
HPI - General Adult General Chief complaint: ETOH/Substance Use Stated complaint: CRISIS ETOH FALL Time Seen by Provider: 01/30/23 23:30 Source: patient Mode of arrival: ambulatory Limitations: no limitations History of Present Illness HPI narrative: 57 yod female with pmh of alcohol abuse presents to the ED for drinking alcohol and falling and hitting on her head. patient admits to drinking 6 to 7 nips. Fall was witnessed. Patient presently denies any physical complaints. Related Data Home Medications Medication Instructions Recorded Confirmed propranolol 10 mg tablet 1 tab PO TID 10/30/22 10/31/22 quetiapine 50 mg tablet 150 mg PO BEDTIME 10/30/22 10/31/22 sertraline 25 mg tablet 1 tab PO DAILY 10/30/22 10/31/22 Previous Rx's Medication Instructions Recorded hydroxyzine HCl 50 mg tablet 50 mg PO Q6H PRN Anxiety 30 days 10/22/22 #90 tabs Allergies Allergy/AdvReac Type Severity Reaction Status Date / Time No Known Allergies Allergy Verified 01/30/23 22:14 [No Known Allergies*] Review of Systems Review of Systems: drinking and fall Yes all other systems are reviewed and are negative PMF Past Medical History Medical History Depression ETOH abuse Mood disorder as late effect of traumatic brain injury TBI (traumatic brain injury) Social History Social History Household Members: Other Household Members Other:: Reports has been [employer] surfing. Housing: Apartment Do you presently have visiting nurse or other home services: No Alcohol intake: never Patient Tobacco Use Status: Never used Tobacco Smoked in Last 30 Days: No e-Cigarette/Vaping Use: Never Used Second Hand Smoke Exposure: No Use of substances other than those prescribed or required for medical reasons: No Substance Use Type: Caffiene Advance Directives: Yes Advance Directives on File: Yes Advance Directives Date on File: 05/06/21 service: No Sexual orientation: Straight/Heterosexual Physical Exam ED Vital Signs: Vital Signs - 24 hr 01/30/23 22:14 Temperature 98.2 F Pulse Rate 79 Respiratory Rate 16 Blood Pressure 148/75 H Pulse Oximetry 95 Oxygen Delivery Method Room Air BMI result Body Mass Index 31.8 Const General: cooperative, healthy appearing, comfortable, no acute distress, well developed, alert, awake and Physically active Orientation/consciousness: oriented to person, oriented to place, oriented to time and patient oriented x3 HENMT Head: Yes normal to inspection, Yes No palpable skull fracture present, Yes normocephalic, Yes atraumatic and No abrasion Ears: hearing grossly normal bilaterally, external ears normal, TM's normal bilaterally, TM normal on the right, TM normal on the left, EAC's normal, mastoids normal and no periauricular adenopathy Eyes General: appearance normal, both eyes and all related structures Neck Neck: Yes normal visual inspection, Yes full ROM, Yes no lymphadenopathy, Yes no meningeal signs, Yes trachea midline, Yes supple, No anterior neck swelling and No tender Chest Chest palpation & inspection: normal inspection of the chest and normal palpation of entire chest wall Resp Effort & Inspection: normal respiratory effort and able to speak in complete sentences Auscultation: clear to auscultation bilaterally Cardio Jugular venous distension: no JVD Heart sounds: S1 normal heart sound present and S2 normal heart sound present GI Inspection: Yes normal to inspection and No abdominal wall ecchymosis Palpation (GI): Soft to palpation, not firm, nontender, no guarding and not rigid General: No CVA tenderness and Yes no CVA tenderness Back/Spine/Pelvis Back: no CVA tenderness, No CVA tenderness and No back tenderness Skin General skin exam: no rashes or lesions noted and elasticity normal Neuro General: oriented to person, oriented to place, oriented to time, patient oriented x3, gait normal, tone normal, moves all extremities, Normal light touch and pain sensation, no meningeal signs, no focal motor deficits, CN's II-XI intact bilaterally and normal sensation to monofilament Extrem General: Yes normal to inspection and Yes full ROM Psych Appearance: grossly normal, well kempt and not disheveled Course Course Course Narrative: labs were ordered. imaging ordered Medical Decision Making Medical Decision Making MDM Narrative: 57 yold female presents to the ED for alcohol drinking and falling and hitting head. patient denies any other complaints. patient does not want detox. Images of head and neck normal. Labs normal. patlient sleeping comfortably in bed. Differential Diagnosis Differential Diagnoses: The differential diagnosis associated with the presentation includes (Alcohol abuse, brAIN BLEED, SKULL FRACTURE, CERVICAL FRACTURE) Admission/Observation Consideration of admission/observation: Escalation of care including admission/observation considered Lab Data 01/30/23 23:44 01/30/23 23:44 Labs: Lab Results 01/30/23 01/30/23 01/30/23 Range/Units 23:44 23:44 23:45 WBC 5.9 (4.8-10.8) X10*3/uL RBC 4.37 (4.20-5.50) X10*6/uL Hgb 13.2 (12.0-16.0) g/dl Hct 39.4 (37.0-47.0) % MCV 90.2 (80.0-98.0) fL MCH 30.2 (27.0-33.0) pg MCHC 33.5 (31.0-35.0) g/dl RDW 13.1 (11.0-16.0) % Plt Count TNP MPV 10.4 (9.4-12.3) fL Immature Gran % (Auto) 0.2 (0.0-0.4) % Neut % (Auto) 29.2 L (45-73) % Lymph % (Auto) 60.7 H (20-40) % [place] % (Auto) 7.4 (2-11) % Eos % (Auto) 1.7 (0-4) % Baso % (Auto) 0.8 (0-2) % Lymph # (Auto) 3.6 (1.2-4.9) X10*3/uL [place] # (Auto) 0.4 (0.1-1.2) X10*3/uL Eos # (Auto) 0.1 (0.0-0.4) X10*3/uL Baso # (Auto) 0.1 (0.0-0.2) X10*3/uL Abs Immat Gran (auto) 0.01 (0.00-0.03) X10*3/uL Absolute Neuts (auto) 1.7 L (2.0-8.3) x10*3/uL Absolute Nucleated RBC 0.000 (0.0-0.012) X10*3/uL Nucleated RBC % (auto) 0.0 (0.0-0.2) /100WBC Smear Tech's Comments VERIFIED Sodium 143 (135-145) mmol/L Potassium 3.5 (3.3-5.1) mmol/L Chloride 106 (96-108) mmol/L Carbon Dioxide 23 (22-29) mmol/L Anion Gap 18 (12-20) BUN 11 (9-16) mg/dL Creatinine 0.71 (0.5-1.4) mg/dL Estim Creat Clear Calc 79.7 Estimated GFR > 60 Random Glucose 95 (60-115) mg/dL Calcium 9.3 (8.4-10.2) mg/dL Total Bilirubin 0.6 (0.0-1.0) mg/dL AST 26 (5-31) U/L ALT 18 (0-31) U/L Alkaline Phosphatase 79 (39-117) U/L Total Protein 7.6 (6.5-8.0) g/dL Albumin 4.1 (3.5-5.0) g/dL Urine Opiates Screen (Not Detect) Urine Fentanyl Screen (Not Detect) Ur Barbiturates Screen (Not Detect) Ur Phencyclidine Scrn (Not Detect) Ur Amphetamines Screen (Not Detect) U Benzodiazepines Scrn (Not Detect) Urine Cocaine Screen (Not Detect) U Marijuana (THC) Screen (Not Detect) Ethyl Alcohol 293 mg/dL COVID-19 (GARCIA) Negative (Negative) COVID-19 Clin Com See Note 01/30/23 Range/Units 23:53 WBC (4.8-10.8) X10*3/uL RBC (4.20-5.50) X10*6/uL Hgb (12.0-16.0) g/dl Hct (37.0-47.0) % MCV (80.0-98.0) fL MCH (27.0-33.0) pg MCHC (31.0-35.0) g/dl RDW (11.0-16.0) % Plt Count MPV (9.4-12.3) fL Immature Gran % (Auto) (0.0-0.4) % Neut % (Auto) (45-73) % Lymph % (Auto) (20-40) % [place] % (Auto) (2-11) % Eos % (Auto) (0-4) % Baso % (Auto) (0-2) % Lymph # (Auto) (1.2-4.9) X10*3/uL [place] # (Auto) (0.1-1.2) X10*3/uL Eos # (Auto) (0.0-0.4) X10*3/uL Baso # (Auto) (0.0-0.2) X10*3/uL Abs Immat Gran (auto) (0.00-0.03) X10*3/uL Absolute Neuts (auto) (2.0-8.3) x10*3/uL Absolute Nucleated RBC (0.0-0.012) X10*3/uL Nucleated RBC % (auto) (0.0-0.2) /100WBC Smear Tech's Comments Sodium (135-145) mmol/L Potassium (3.3-5.1) mmol/L Chloride (96-108) mmol/L Carbon Dioxide (22-29) mmol/L Anion Gap (12-20) BUN (9-16) mg/dL Creatinine (0.5-1.4) mg/dL Estim Creat Clear Calc Estimated GFR Random Glucose (60-115) mg/dL Calcium (8.4-10.2) mg/dL Total Bilirubin (0.0-1.0) mg/dL AST (5-31) U/L ALT (0-31) U/L Alkaline Phosphatase (39-117) U/L Total Protein (6.5-8.0) g/dL Albumin (3.5-5.0) g/dL Urine Opiates Screen Not Detected (Not Detect) Urine Fentanyl Screen Not Detected (Not Detect) Ur Barbiturates Screen Not Detected (Not Detect) Ur Phencyclidine Scrn Not Detected (Not Detect) Ur Amphetamines Screen Not Detected (Not Detect) U Benzodiazepines Scrn Not Detected (Not Detect) Urine Cocaine Screen Not Detected (Not Detect) U Marijuana (THC) Screen Not Detected (Not Detect) Ethyl Alcohol mg/dL COVID-19 (GARCIA) (Negative) COVID-19 Clin Com Independent Interpretation I performed an independent interpretation of an: CT Scan Radiology Impression Discussion of test interpretation with radiology: I have reviewed the radiologist's reading. Discharge Plan Discharge Clinical Impression: Alcohol abuse Patient Disposition: Home, Self-Care Instructions: Head Injury (ED), Abuse of Alcohol (DC) Additional Instructions: Return to the ED for any conerning symptoms. Please follow up with pCP. Prescriptions: No Action hydroxyzine HCl 50 mg Tablet 50 mg PO Q6H PRN (Reason: Anxiety) 30 Days Qty: 90 0RF sertraline 25 mg tablet 1 tab PO DAILY propranolol 10 mg tablet 1 tab PO TID quetiapine 50 mg tablet 150 mg PO BEDTIME Interventions: ED Discharge Assessment Last Done: 01/31/23 02:15 Discharge Date/Time: 01/31/23 02:54 Print Language: [place]
[2023-01-30 23:55] LABS: Basophils Absolute Auto 0.1 X10*3/uL (0.0-0.2); Basophils Percent Auto 0.8 % (0-2); Eosinophils Absolute Auto 0.1 X10*3/uL (0.0-0.4); Eosinophils Percent Auto 1.7 % (0-4); Hematocrit 39.4 % (37.0-47.0); Hemoglobin 13.2 g/dl (12.0-16.0); Imm Gran Abs Auto 0.01 X10*3/uL (0.00-0.03); Imm Gran Pct Auto 0.2 % (0.0-0.4); Lymphocytes Absolute Auto 3.6 X10*3/uL (1.2-4.9); Lymphocytes Percent Auto 60.7 % (20-40); MANUAL DIFF FLAG SCAN; Mean Corpuscular HGB Conc 33.5 g/dl (31.0-35.0); Mean Corpuscular Hemoglobin 30.2 pg (27.0-33.0); Mean Corpuscular Volume 90.2 fL (80.0-98.0); Mean Platelet Volume 10.4 fL (9.4-12.3); Monocytes Absolute Auto 0.4 X10*3/uL (0.1-1.2); Monocytes Percent Auto 7.4 % (2-11); Neutrophils Absolute Auto 1.7 x10*3/uL (2.0-8.3); Neutrophils Percent Auto 29.2 % (45-73); PLT CLUMP 1; Red Blood Count 4.37 X10*6/uL (4.20-5.50); Red Cell Distribution Width 13.1 % (11.0-16.0); SCAN SMEAR FLAG 1
[2023-01-31 00:05] LABS: Alanine Aminotransferase 18 U/L (0-31); Albumin Level 4.1 g/dL (3.5-5.0); Alkaline Phosphatase 79 U/L (39-117); Anion Gap 18 (12-20); Aspartate Amino Transferase 26 U/L (5-31); Bilirubin Total 0.6 mg/dL (0.0-1.0); Blood Urea Nitrogen 11 mg/dL (9-16); Calcium 9.3 mg/dL (8.4-10.2); Carbon Dioxide 23 mmol/L (22-29); Chloride 106 mmol/L (96-108); Creatinine Clr Calc Pharmacy 79.7; Estimated Glomerular Filt Rate > 60; Glucose Random 95 mg/dL (60-115); Potassium 3.5 mmol/L (3.3-5.1); Sodium 143 mmol/L (135-145); Total Protein 7.6 g/dL (6.5-8.0)
[2023-01-31 00:08] LABS: White Blood Count 5.9 X10*3/uL (4.8-10.8)
[2023-01-31 00:09] LABS: SLIDE REVIEW VERIFIED
[2023-01-31 00:11] LABS: COVID-19 Test Negative (Negative); IDNOW Serial# 6674DD1D
[2023-01-31 00:13] LABS: Amphetamine Screen Urine Not Detected (Not Detect); Barbiturates, Urine Not Detected (Not Detect); Benzodiazepines Screen Urine Not Detected (Not Detect); Cannabinoid Screen Urine Not Detected (Not Detect); Cocaine Screen Urine Not Detected (Not Detect); Fentanyl, urine Not Detected (Not Detect); Opiate Screen Urine Not Detected (Not Detect); Phencyclidine Screen Urine Not Detected (Not Detect)
[2023-01-31 00:42] LABS: Ethanol 293 mg/dL
== END 2023-01-31 02:54 | disposition home or self-care (01) ==
PROVIDERS: Emergency Provider Emergency Medicine; PCP Internal Medicine
DX: F10.10 Alcohol abuse, uncomplicated (principal); Y90.8 Blood alcohol level of 240 mg/100 ml or more; Z20.822 Contact with and (suspected) exposure to COVID-19; Z91.81 History of falling; Z79.899 Other long term (current) drug therapy
CPT/HCPCS: 70450; 72125; 80053; 80307; 85025; 87635; 99284

== ENCOUNTER 2023-02-05 15:07 | Inpatient (IN) | payer OTHER, SELFPAY ==
[2023-02-05] VITALS (7 sets, daily range): BP systolic 98–146; BP diastolic 53–78; PULSE 82–121; RESP 16–21; TEMP 36.7–37.9; O2SAT 87–99; BMI 34.0
--- NOTE | ~2023-02-05 | XR_ITS ---
EXAMINATION: XR CHEST CLINICAL INFORMATION: Shortness of breath COMPARISON: Chest radiographs 07/11/2022, 05/06/2021 TECHNIQUE: 2 views of the chest were obtained. FINDINGS: Cardiopulmonary appearance is similar to prior exam. There is fine linear scar right lower zone. There is no pneumothorax, pleural reaction, airspace consolidation, or effusion. Heart size normal. Vascularity normal. The hilar and mediastinal contours are unremarkable. There are old healed fractures left lateral ribs and left shoulder. XR/XR chest 2V IMPRESSION: No acute intrathoracic disease.
--- NOTE | ~2023-02-05 | CT_ITS ---
EXAMINATION: CT ABDOMEN AND PELVIS WITHOUT CONTRAST CLINICAL INFORMATION: Right flank pain COMPARISON: CT 12/08/2014 TECHNIQUE: Multidetector volumetric imaging was performed from the superior aspect of the liver through the pubic symphysis. Sagittal and coronal reformatted images were obtained on the technologist's workstation. This CT examination was performed using dose optimization techniques as appropriate, variously including the following: *Automated exposure control *Adjustment of mA and/or kV according to patient size (this includes techniques or standardized protocols for targeted exams where dose is matched to indication/reason for exam; i.e. extremities or head) *Use of iterative reconstruction technique DLP: 593 mGy-cm FINDINGS: LUNG BASES: The visualized lung bases are unremarkable. LIVER, GALLBLADDER, AND BILIARY TREE: Hepatic hypoattenuation suggesting hepatic steatosis. Redemonstrated is a 1.6 cm cyst in the right lobe. The additional larger cystic focus seen in the prior study in the right lobe, is not evident in today's study. The gallbladder is unremarkable with no evidence of radiopaque gallstones, gallbladder wall thickening, or obvious pericholecystic inflammatory changes. PANCREAS: Unremarkable. SPLEEN: Unremarkable. ADRENAL GLANDS: Unremarkable. KIDNEYS AND URETERS: Severe right hydroureteronephrosis. There is a 8 mm calculus in the distal right ureter at the right UVJ. There is an additional 8 mm calculus distal to this, at the right UVJ/within the bladder as well. There are multiple nonobstructing stones in the left kidney, measuring 1-3 mm in size. Mild left perinephric stranding. No left ureteral calculi or hydronephrosis. BLADDER: Nondistended, limiting evaluation. GASTROINTESTINAL TRACT: No small or large bowel obstruction. Colonic diverticulosis without diverticulitis. Normal appendix. ABDOMINAL WALL: No significant hernia is appreciated. LYMPH NODES: No pathologically enlarged lymph nodes are seen. VASCULAR: Normal caliber aorta. PELVIC VISCERA: Within normal limits for CT. OSSEOUS STRUCTURES: L3 vertebroplasty. Multilevel degenerative changes in the spine. CT/CT abdomen pelvis wo IV con IMPRESSION: 1. Severe right hydroureteronephrosis. 8mm calculus in the distal right ureter near the right UVJ. Additionally 8 mm calculus distal to this at the right UVJ/within the bladder. 2. Multiple nonobstructing left renal calculi. 3. Additional findings and details as above. Fleischner guidelines were followed.
--- NOTE | ~2023-02-05 | FL_ITS ---
EXAMINATION: XR FLUOROSCOPY WITH IMAGES CLINICAL INFORMATION: Right retrograde exam. COMPARISON: Previous CT of the abdomen and pelvis from yesterday. TECHNIQUE: Fluoroscopy Supervised By: Dr. aKne Gan. Fluoroscopy Time: 1 minute Cumulative Dose: 22 mGy DAP: Gycm2 Images: 2 FINDINGS: Images demonstrate the proximal and distal ends of a right internal ureteral stent. There may be stones adjacent to the distal end of the ureteral stent in the bladder. FL/FL guidance in OR IMPRESSION: Fluoroscopy guidance for right retrograde exam and stent placement.
--- NOTE | 2023-02-05 15:14 | ED.BACK ---
HPI - Back Pain/Injury General Chief Complaint: Abdominal Pain Stated Complaint: BACK PAIN Time Seen by Provider: 02/05/23 16:43 Source: patient, RN notes reviewed and old records reviewed Mode of arrival: ambulatory Limitations: no limitations History of Present Illness HPI Narrative: 57-year-old female with past medical history significant for alcohol abuse presents for evaluation of multiple complaints. Patient reports that she has been trying to cut back on her drinking and feels that she is alcohol withdrawal She states that she has only had ?2 naps daily for the last 3 days. ? She states that she vomited several times this morning so was unable to keep them down She reports ?shaking with general body aches. She denies any fevers but endorses chills. She also endorses lower abdominal pain, ?UTI symptoms. ? She states that she has been urinating frequently and had burning with urination Patient also complains of right lower back pain/right flank pain She reports a rash to her right lower back as well as consistent with previous episodes of shingles. Related Data Home Medications Medication Instructions Recorded Confirmed propranolol 10 mg tablet 1 tab PO TID 10/30/22 10/31/22 quetiapine 50 mg tablet 150 mg PO BEDTIME 10/30/22 10/31/22 sertraline 25 mg tablet 1 tab PO DAILY 10/30/22 10/31/22 Previous Rx's Medication Instructions Recorded hydroxyzine HCl 50 mg tablet 50 mg PO Q6H PRN Anxiety 30 days 10/22/22 #90 tabs Allergies Allergy/AdvReac Type Severity Reaction Status Date / Time No Known Allergies Allergy Verified 01/30/23 22:14 [No Known Allergies*] Review of Systems Constitutional: Constitutional: Reports as per HPI, Reports chills, Denies fever(s), Denies headache(s), Reports malaise and Reports weakness ENT: Denies headache(s) Cardiovascular: Cardiovascular: Denies chest pain and Denies dyspnea Respiratory: Respiratory: Denies cough and Denies dyspnea Gastrointestinal: Gastrointestinal: Reports abdominal pain, Denies constipation, Reports diarrhea, Reports nausea and Reports vomiting Genitourinary: Genitourinary: Reports dysuria and Reports flank pain Comments: Frequent urination Musculoskeletal: Musculoskeletal: Reports back pain Integumentary/Breasts: Skin/Breast: Reports rash and Reports skin pain Neurologic: Denies headache(s), Denies focal weakness and Reports weakness PMFSH Past Medical History Medical History Depression ETOH abuse Mood disorder as late effect of traumatic brain injury TBI (traumatic brain injury) Social History Social History Household Members: Other Household Members Other:: Reports has been couch surfing. Housing: Apartment Do you presently have visiting nurse or other home services: No Alcohol intake: never Patient Tobacco Use Status: Never used Tobacco e-Cigarette/Vaping Use: Never Used Second Hand Smoke Exposure: No Substance Use Type: Caffiene Advance Directives: Yes Advance Directives on File: Yes Advance Directives Date on File: 05/06/21 service: No Sexual orientation: Straight/Heterosexual Physical Exam Vital Signs: Vital Signs: Last Vital Signs Temp 100.3 F 02/05/23 17:28 Pulse 110 H 02/05/23 17:28 Resp 20 02/05/23 17:28 BP 124/63 02/05/23 17:28 Pulse Ox 96 02/05/23 17:28 O2 Del Method Room Air 02/05/23 17:28 BMI result Body Mass Index 34.0 Const: General: healthy appearing, no acute distress, alert and awake Nutritional Appearance: well nourished Orientation/consciousness: patient oriented x3 HEENT: Head: Yes normocephalic and Yes atraumatic Eyes: Eyelids: Yes eyelids normal Conjunctivae: conjunctivae normal Sclerae: sclerae normal Corneas: corneas normal Pupils: Equal, round and reactive pupils present EOM: EOMs intact bilaterally Neck: Neck: Yes full ROM Resp: Effort & Inspection: normal respiratory effort, able to speak in complete sentences, no audible wheezes and not labored Auscultation: clear to auscultation bilaterally GI: Inspection: No distended Palpation (GI): Soft to palpation, not firm, Tenderness to palpation present (GI) (And right flank) in the RUQ and suprapubicly, no guarding and not rigid Auscultation: normoactive bowel sounds Skin: Other: Patient has scattered vesicular rash to the right lower back with erythematous base. No open wounds or lesions. The rash does not cross midline General skin exam: elasticity normal Neuro: General: patient oriented x3 Cranial nerves: Yes CN's II-XII intact bilaterally, Yes Equal, round and reactive pupils present and Yes Bilaterally intact EOM present Cognition (Neuro): normal cognition Course Course Course Narrative: RME - 57 yo female with history of ETOH abuse/dependence who presents to the ER via EMS from [facility] for evaluation of lower back pain, dysuria, N/V X 2 days and possible alcohol withdrawal. Admits to 2 nips this morning but vomited them up. Has been trying to cut back, out of a program . HR 130s in triage, SOB, low grade fever. ?shingles rash on her back Plan: EKG, CXR, labs, ETOH. to go back to treatment room now Medications Administered Generic Name Dose Route Start Last Admin Trade Name Freq PRN Reason Stop Dose Admin Sodium Chloride 1,000 mls @ 999 mls/hr 02/05/23 17:30 02/05/23 17:30 Ns IV 02/05/23 18:30 999 mls/hr .Q1H1M MYRA Administration Discontinued Medications Generic Name Dose Route Start Last Admin Trade Name Freq PRN Reason Stop Dose Admin Ondansetron HCl 4 mg 02/05/23 17:20 02/05/23 17:30 Ondansetron Hcl 4 Mg/2 Ml Vial IVPUSH 02/05/23 17:21 4 mg ONCE ONE Administration Medical Decision Making Medical Decision Making [facility] Narrative: Patient has multiple complaints that could be contributing to her current presentation. She is noted to be tachycardic to 120 the temperature 100.4?. She denies any fevers but endorses chills. She does complain of urinary symptoms, there is concern for UTI/pyelonephritis. Given her alcohol withdrawal symptoms with anxiety, tremulous and shaking, alcohol withdrawals likely a component as well. She has a lactic acid of 3.9. This could be related to alcohol withdrawal versus infectious process with urinary infection. The patient is also tender in the right upper quadrant, will start a CT scan the abdomen pelvis to evaluate both the kidney for pyelonephritis and will also evaluate the gallbladder for any obvious gallstones. Will consider adding gallbladder ultrasound and remainder of the patient's workup. The patient was given phenobarb alcohol withdrawal protocol. She is also given Zofran, IV fluids. Her potassium was low at 2.7, given her vomiting we will treat IV with 40 mEq. Patient's blood cultures are pending. Lactic FA acid will be repeated after IV fluids. Patient is also given thiamine given her alcohol abuse. Patient also has a rash consistent with shingles to the right lower back. Differential Diagnosis Alcohol withdrawal Dehydration Metabolic acidosis UTI Pyelonephritis Sepsis. Shingles Cholelithiasis Acute cholecystitis Lab Data MDM Lab Attestation statement: I reviewed the patient's lab results. Lactate elevated at 3.9, no leukocytosis. Patient's potassium is 2.9, T bili is elevated 2.3. Patient is not complaining of chest pain but her troponin was elevated to 19.1. Will repeat at the 3 hour interval. 02/05/23 16:48 02/05/23 16:48 Labs: Lab Results 02/05/23 02/05/23 02/05/23 Range/Units 16:48 16:48 16:48 WBC 4.5 L (4.8-10.8) X10*3/uL RBC 4.13 L (4.20-5.50) X10*6/uL Hgb 12.5 (12.0-16.0) g/dl Hct 37.0 (37.0-47.0) % MCV 89.6 (80.0-98.0) fL MCH 30.3 (27.0-33.0) pg MCHC 33.8 (31.0-35.0) g/dl RDW 14.3 (11.0-16.0) % Plt Count 151 L D (160-400) X10*3/uL MPV 9.9 (9.4-12.3) fL Immature Gran % (Auto) 0.9 H (0.0-0.4) % Neut % (Auto) 90.6 H (45-73) % Lymph % (Auto) 7.9 L (20-40) % Florence % (Auto) 0.4 L (2-11) % Eos % (Auto) 0.0 (0-4) % Baso % (Auto) 0.2 (0-2) % Lymph # (Auto) 0.4 L (1.2-4.9) X10*3/uL Florence # (Auto) 0.0 L (0.1-1.2) X10*3/uL Eos # (Auto) 0.0 (0.0-0.4) X10*3/uL Baso # (Auto) 0.0 (0.0-0.2) X10*3/uL Abs Immat Gran (auto) 0.04 H (0.00-0.03) X10*3/uL Absolute Neuts (auto) 4.1 (2.0-8.3) x10*3/uL Absolute Nucleated RBC 0.000 (0.0-0.012) X10*3/uL Nucleated RBC % (auto) 0.0 (0.0-0.2) /100WBC Smear Tech's Comments VERIFIED PT 10.7 (10.0-13.1) SEC INR 0.9 (0.9-1.1) APTT 24.2 L D (26.0-36.4) SEC Sodium 136 (135-145) mmol/L Potassium 2.7 L D (3.3-5.1) mmol/L Chloride 94 L (96-108) mmol/L Carbon Dioxide 25 (22-29) mmol/L Anion Gap 20 (12-20) BUN 22 H (9-16) mg/dL Creatinine 1.15 (0.5-1.4) mg/dL Estim Creat Clear Calc 51.0 Estimated GFR 48 Random Glucose 151 H (60-115) mg/dL Lactic Acid (0.5-2.0) mmol/L Calcium 9.9 D (8.4-10.2) mg/dL Magnesium 1.6 (1.6-2.6) mg/dL Total Bilirubin 2.3 H (0.0-1.0) mg/dL Direct Bilirubin 0.7 H (0.0-0.5) mg/dL AST 39 H (5-31) U/L ALT 21 (0-31) U/L Alkaline Phosphatase 104 (39-117) U/L Troponin I High Sens (<3.5-17.0) ng/L Total Protein 7.9 (6.5-8.0) g/dL Albumin 4.1 (3.5-5.0) g/dL Lipase 38 (8-78) U/L Ethyl Alcohol mg/dL 02/05/23 02/05/23 02/05/23 Range/Units 16:48 16:48 16:48 WBC (4.8-10.8) X10*3/uL RBC (4.20-5.50) X10*6/uL Hgb (12.0-16.0) g/dl Hct (37.0-47.0) % MCV (80.0-98.0) fL MCH (27.0-33.0) pg MCHC (31.0-35.0) g/dl RDW (11.0-16.0) % Plt Count (160-400) X10*3/uL MPV (9.4-12.3) fL Immature Gran % (Auto) (0.0-0.4) % Neut % (Auto) (45-73) % Lymph % (Auto) (20-40) % Florence % (Auto) (2-11) % Eos % (Auto) (0-4) % Baso % (Auto) (0-2) % Lymph # (Auto) (1.2-4.9) X10*3/uL Florence # (Auto) (0.1-1.2) X10*3/uL Eos # (Auto) (0.0-0.4) X10*3/uL Baso # (Auto) (0.0-0.2) X10*3/uL Abs Immat Gran (auto) (0.00-0.03) X10*3/uL Absolute Neuts (auto) (2.0-8.3) x10*3/uL Absolute Nucleated RBC (0.0-0.012) X10*3/uL Nucleated RBC % (auto) (0.0-0.2) /100WBC Smear Tech's Comments PT (10.0-13.1) SEC INR (0.9-1.1) APTT (26.0-36.4) SEC Sodium (135-145) mmol/L Potassium (3.3-5.1) mmol/L Chloride (96-108) mmol/L Carbon Dioxide (22-29) mmol/L Anion Gap (12-20) BUN (9-16) mg/dL Creatinine (0.5-1.4) mg/dL Estim Creat Clear Calc Estimated GFR Random Glucose (60-115) mg/dL Lactic Acid 3.9 H* (0.5-2.0) mmol/L Calcium (8.4-10.2) mg/dL Magnesium (1.6-2.6) mg/dL Total Bilirubin (0.0-1.0) mg/dL Direct Bilirubin (0.0-0.5) mg/dL AST (5-31) U/L ALT (0-31) U/L Alkaline Phosphatase (39-117) U/L Troponin I High Sens 19.1 H (<3.5-17.0) ng/L Total Protein (6.5-8.0) g/dL Albumin (3.5-5.0) g/dL Lipase (8-78) U/L Ethyl Alcohol < 10 mg/dL Independent Interpretation I performed an independent interpretation of an: EKG (Sinus tachycardia rate of 120 beats per minute. T-wave inversion in lead 3 without reciprocal changes. No ST segment elevation or depression.) and Plain X-Ray (No focal infiltrates) Radiology Impression Discussion of test interpretation with radiology: I have reviewed the radiologist's reading. (Unremarkable chest x-ray) Discharge Plan Discharge Clinical Impression: Shingles, Alcohol withdrawal, Acidosis, lactic Prescriptions: No Action hydroxyzine HCl 50 mg Tablet 50 mg PO Q6H PRN (Reason: Anxiety) 30 Days Qty: 90 0RF sertraline 25 mg tablet 1 tab PO DAILY propranolol 10 mg tablet 1 tab PO TID quetiapine 50 mg tablet 150 mg PO BEDTIME
--- NOTE | 2023-02-05 15:42 | ECG_ITS ---
Test Reason : SOB,TACHYCARDIA Blood Pressure : / mmHG Vent. Rate : 120 BPM Atrial Rate : 120 BPM P-R Int : 150 ms QRS Dur : 078 ms QT Int : 318 ms P-R-T Axes : 041 014 007 degrees QTc Int : 449 ms Sinus tachycardia Otherwise normal ECG When compared with ECG of 16-OCT-2022 19:03, Inverted T waves have replaced nonspecific T wave abnormality in Inferior leads Referred By: Susan Chirinos Electronically Signed By:CHELA LEBLANC MD
--- NOTE | 2023-02-05 15:58 | MHC.EDTECH ---
patient refused to have labs drawn,patient states they want labs drawn by iv or a nurse RN aware
[2023-02-05 16:56] LABS: Basophils Percent Auto 0.2 % (0-2); Hemoglobin 12.5 g/dl (12.0-16.0); Imm Gran Abs Auto 0.04 X10*3/uL (0.00-0.03); Imm Gran Pct Auto 0.9 % (0.0-0.4); Lymphocytes Absolute Auto 0.4 X10*3/uL (1.2-4.9); Lymphocytes Percent Auto 7.9 % (20-40); MANUAL DIFF FLAG SCAN; Mean Corpuscular HGB Conc 33.8 g/dl (31.0-35.0); Mean Corpuscular Hemoglobin 30.3 pg (27.0-33.0); Mean Corpuscular Volume 89.6 fL (80.0-98.0); Mean Platelet Volume 9.9 fL (9.4-12.3); Monocytes Percent Auto 0.4 % (2-11); Neutrophils Absolute Auto 4.1 x10*3/uL (2.0-8.3); Neutrophils Percent Auto 90.6 % (45-73); Platelet Count 151 X10*3/uL (160-400); Red Blood Count 4.13 X10*6/uL (4.20-5.50); Red Cell Distribution Width 14.3 % (11.0-16.0); SCAN SMEAR FLAG 1; White Blood Count 4.5 X10*3/uL (4.8-10.8)
[2023-02-05 17:08] LABS: Ethanol < 10 mg/dL; Lactic Acid 3.9 mmol/L (0.5-2.0)
[2023-02-05 17:11] LABS: Alanine Aminotransferase 21 U/L (0-31); Albumin Level 4.1 g/dL (3.5-5.0); Alkaline Phosphatase 104 U/L (39-117); Anion Gap 20 (12-20); Aspartate Amino Transferase 39 U/L (5-31); Bilirubin Direct 0.7 mg/dL (0.0-0.5); Bilirubin Total 2.3 mg/dL (0.0-1.0); Blood Urea Nitrogen 22 mg/dL (9-16); Calcium 9.9 mg/dL (8.4-10.2); Carbon Dioxide 25 mmol/L (22-29); Chloride 94 mmol/L (96-108); Estimated Glomerular Filt Rate 48; Glucose Random 151 mg/dL (60-115); Lipase 38 U/L (8-78); Magnesium 1.6 mg/dL (1.6-2.6); Potassium 2.7 mmol/L (3.3-5.1); Sodium 136 mmol/L (135-145); Total Protein 7.9 g/dL (6.5-8.0)
[2023-02-05 17:16] LABS: INTERNATIONAL NORM RATIO 0.9 (0.9-1.1); Prothrombin Time 10.7 SEC (10.0-13.1)
[2023-02-05 17:18] LABS: Troponin-I High Sensitivity 19.1 ng/L (<3.5-17.0)
[2023-02-05 17:19] LABS: Partial Thromboplastin Time 24.2 SEC (26.0-36.4)
[2023-02-05 17:23] LABS: SLIDE REVIEW VERIFIED
[2023-02-05] MEDS: ondansetron HCL 4 MG/2 ML VIAL IVPUSH (17:30)
[2023-02-05] MEDS: 0.9 % Sodium Chloride 1,000 ML 999 ML IV (17:30)
[2023-02-05] MEDS: Thiamine HCL 500 MG in 0.9 % Sodium Chloride 100 ML 210 MG IV (18:20)
[2023-02-05] MEDS: PHENobarbitaL sodium 130 MG/ML IM ONCE 191 MG IM (18:21)
[2023-02-05 18:53] LABS: Reflex Lactate? Lactic Acid Added
--- NOTE | 2023-02-05 19:19 | PHA.MEDREC ---
Pharmacy Consult ? Medication Reconciliation Pharmacy has completed the medication reconciliation. Spoke with patient in ED. Patient was able to tell me some of her medications. Pt stated she was discharged from [facility] in [place] on weekend and has not taken any of her medications since.
[2023-02-05] MEDS: valACYclovir HCL 1,000 MG TABLET 1000 MG PO (19:41)
[2023-02-05] MEDS: cefTRIAXone sodium 1 GM in 0.9 % Sodium Chloride 50 ML IV (19:41)
[2023-02-05] MEDS: Potassium Chloride/H20 10 MEQ/100 ML PIGGYBACK 100 MEQ IV ×4 (19:42→23:24)
[2023-02-05 20:00] LABS: Appearance Urine Clear; Color Urine Orange; Glucose Urine UA 100 mg/dL (Negative); Leukocyte Esterase Urine Moderate (2+) (Negative); Nitrite Urine Positive (Negative); Specific Gravity - Urine 1.015 (1.005-1.025); UMIC TRIGGER UACC YES; Urine Blood Small (1+) (Negative); Urine Ketones 15 mg/dL (Negative); Urine Protein 100 (2+) mg/dL (Neg-Trace)
--- NOTE | 2023-02-05 20:00 | P.HPHOSP_ITS ---
History of Present Illness Date of Service: 02/05/23 Attending physician on admission: Mago French Chief Complaint: Abdominal pain Pt is a 57-year-old female with a PMH significant for alcohol use disorder with hx of withdrawals,?shingles, and anxiety who presents to the ED with?nausea, vom iting, back pain. Patient states her symptoms began last night when she woke up around 22:30 with sharp shooting pain in her back and nausea and vomiting. Rates her pain at a 9/10, is located across the whole of her lower back, and she says it feels like somebody is stabbing her in the back. This morning patient found her pain had increased to the point where she was shaking and could hardly walk or breath. Patient was unable to eat or drink secondary to nausea and vomiting. Patient also states that she has been experiencing the past few days dysuria and polyuria. Also notes a burning, itching, painful sensation on her back reminiscent of the patient's last shingles outbreak which was in September of this year. Patient states that she received 1 shot of the Shingrix vaccine but has not yet received her 2nd dose. Patient also has a long history of alcohol use disorder and withdrawals. Patient left each treatment program around and has been drinking since, up to her previous level. Past few days patient has been unable to keep food or drink down and has. Has been drinking only 3-4 nips per day. Has noticed minor shaking of her upper extremities, feeling diaphoretic, and alternating between hot and cold. Has had diarrhea for the past 4+ weeks. In the ED patient was afebrile, tachycardic up to 121, satting 96% on RA. Labs were significant for potassium 2.7, creatinine 1.15, lactic acid of 3.9, bilirubin of 2.3, AST 39, troponin 19.1. UA positive for UTI. CXR showed no acute intrathoracic disease. CT?of abdomen/pelvis showed severe right hydrou reteronephrosis with two right 8mm calculi and multiple nonobstructing stones in the left kidney. EKG demonstrated sinus tachycardia of [address] elevations or depressions. Pt was treated with IVF, ondansetron, thiamine, ceftriaxone, valacyclovir, potassium chloride, and started on phenobarb protocol. Pt will be admitted to the hospital for treatment of alcohol withdrawal, UTI, and hydroureteronephrosis with likely surgical procedure tomorrow. Review of Systems Review of Systems: Lower back pain Nausea, vomiting Diaphoresis Dysuria, polyuria Pruritic, painful rash on right lower back Shortness of breath Diarrhea x4 weeks [facility] Medical History Depression ETOH abuse Mood disorder as late effect of traumatic brain injury TBI (traumatic brain injury) Social History Household Members: Other Household Members Other:: Reports has been [employer] Information. Housing: Apartment Do you presently have visiting nurse or other home services: No Alcohol intake: current Alcohol intake frequency: 3 or more drinks per day Alcohol type: hard liquor Patient Tobacco Use Status: Never used Tobacco e-Cigarette/Vaping Use: Never Used Second Hand Smoke Exposure: No Substance Use Type: Caffiene Advance Directives Date on File: 05/06/21 service: No Current occupational status: disabled Sexual orientation: Straight/Heterosexual Meds Allergies Allergy/AdvReac Type Severity Reaction Status Date / Time No Known Allergies Allergy Verified 01/30/23 22:14 [No Known Allergies*] Active Medications: Current Medications Potassium Chloride (Potassium Chloride/H20) 10 meq in 100 mls @ 100 mls/hr IV Q1H MYRA Stop: 02/05/23 22:59 Last Admin: 02/05/23 19:42 Dose: 100 mls/hr Pharmacy Consult (Consult Rx Etoh Phenob Im/Po) 0 each MISCELLANE ONCE PRN; Protocol PRN Reason: Consult order Pharmacy Consult (Consult Rx Perform Med Rec) 1 each MISCELLANE ONCE PRN PRN Reason: Consult order Phenobarbital (Phenobarbital 30 Mg Tablet) 30 mg PO BID MYRA Stop: 02/07/23 21:01 Phenobarbital (Phenobarbital 15 Mg Tablet) 15 mg PO BID MYRA Stop: 02/09/23 21:01 Phenobarbital (Phenobarbital 15 Mg Tablet) 15 mg PO DAILY MYRA Stop: 02/11/23 09:01 Phenobarbital Sodium (Phenobarbital Sodium 130 Mg/Ml Vial Im Q3hx2) 143 mg IM Q3H MYRA Stop: 02/06/23 00:01 Home Medications Medication Instructions Recorded Confirmed Last Taken Type quetiapine 50 mg tablet 150 mg PO BEDTIME 10/30/22 02/05/23 Unknown History acetaminophen 325 mg tablet 650 mg PO Q6H PRN FEVER/PAIN 02/05/23 02/05/23 Unknown History clonidine HCl 0.1 mg tablet 0.1 mg PO BID PRN Anxiety 02/05/23 02/05/23 Unknown History fluticasone propionate 50 1 spray intranasal DAILY 02/05/23 02/05/23 Unknown History mcg/actuation nasal spray,suspension gabapentin 600 mg tablet 600 mg PO BEDTIME 02/05/23 02/05/23 Unknown History hydroxyzine HCl 25 mg tablet 25 mg PO TID PRN Anxiety 02/05/23 02/05/23 Unknown History lidocaine 5 % topical patch 1 patch topical DAILY 02/05/23 02/05/23 Unknown His tory loratadine 10 mg tablet 10 mg PO DAILY PRN Allergy Symptoms 02/05/23 02/05/23 Unknown History melatonin 5 mg tablet 5 mg PO BEDTIME 02/05/23 02/05/23 Unknown History multivitamin with minerals-ferrous 1 tab PO DAILY 02/05/23 02/05/23 Unknown History sulfate 4.5 mg iron tablet (One Daily Multivitamins with Minerals) naltrexone 50 mg tablet 50 mg PO DAILY 02/05/23 02/05/23 Unknown History naltrexone microspheres 380 mg 380 mg IM Q4W 02/05/23 02/05/23 Unknown History intramuscular suspension,extended release (Vivitrol) propranolol 10 mg tablet 10 mg PO TID 02/05/23 02/05/23 Unknown History sertraline 50 mg tablet 50 mg PO DAILY 02/05/23 02/05/23 Unknown History Physical Exam Vital Signs and Narrative: Vital Signs: Last Vital Signs Temp 100.3 F 02/05/23 17:28 Pulse 110 H 02/05/23 17:28 Resp 20 02/05/23 17:28 BP 124/63 02/05/23 17:28 Pulse Ox 96 02/05/23 17:28 O2 Del Method Room Air 02/05/23 17:28 BMI result Body Mass Index 34.0 Constitutional: Alert, in no acute distress. Mental Status: Oriented to person, place and time. Eyes: Pupils are equal, round, and reactive to light. Ear, Nose, and Throat: Oropharynx clear, mucous membranes moist. Ears and nose without deformities. Trachea midline. Respiratory: Clear to auscultation bilaterally. No wheezing, rales, or rhonchi. Cardiovascular: S1, S2 regular. No murmurs, rubs, or gallops. Gastrointestinal: Abdomen soft, diffusely tender especially on right side, non- distended. Normal bowel sounds. Neurologic: Cranial nerves II-XII are grossly intact bilaterally. No focal neurological deficits. Moves all extremities spontaneously. Mild tremors of upper extremities. Back: Right flank tender. Skin: Erythematous maculopapular rash on the lower right back that does not cross the midline. Musculoskeletal: No cyanosis or clubbing. Extremities: No edema. Psychiatric: Normal mood and affect. Results Labs 02/05/23 16:48 02/05/23 16:48 Labs: Laboratory Results - last 24 hr 02/05/23 02/05/23 02/05/23 16:48 16:48 16:48 MCV 89.6 MCH 30.3 MCHC 33.8 RDW 14.3 Plt Count 151 L D MPV 9.9 Immature Gran % (Auto) 0.9 H Neut % (Auto) 90.6 H Lymph % (Auto) 7.9 L [place] % (Auto) 0.4 L Eos % (Auto) 0.0 Baso % (Auto) 0.2 Lymph # (Auto) 0.4 L [place] # (Auto) 0.0 L Eos # (Auto) 0.0 Baso # (Auto) 0.0 Abs Immat Gran (auto) 0.04 H Absolute Neuts (auto) 4.1 Absolute Nucleated RBC 0.000 Nucleated RBC % (auto) 0.0 Smear Tech's Comments VERIFIED PT 10.7 INR 0.9 APTT 24.2 L D Anion Gap 20 Estim Creat Clear Calc 51.0 Estimated GFR 48 Random Glucose 151 H Lactic Acid Calcium 9.9 D Magnesium 1.6 Total Bilirubin 2.3 H Direct Bilirubin 0.7 H AST 39 H ALT 21 Alkaline Phosphatase 104 Troponin I High Sens Total Protein 7.9 Albumin 4.1 Lipase 38 Ethyl Alcohol 02/05/23 02/05/23 02/05/23 16:48 16:48 16:48 MCV MCH MCHC RDW Plt Count MPV Immature Gran % (Auto) Neut % (Auto) Lymph % (Auto) [place] % (Auto) Eos % (Auto) Baso % (Auto) Lymph # (Auto) [place] # (Auto) Eos # (Auto) Baso # (Auto) Abs Immat Gran (auto) Absolute Neuts (auto) Absolute Nucleated RBC Nucleated RBC % (auto) Smear Tech's Comments PT INR APTT Anion Gap Estim Creat Clear Calc Estimated GFR Random Glucose Lactic Acid 3.9 H* Calcium Magnesium Total Bilirubin Direct Bilirubin AST ALT Alkaline Phosphatase Troponin I High Sens 19.1 H Total Protein Albumin Lipase Ethyl Alcohol < 10 Imaging Radiologist's Impressions: Impressions Chest X-Ray 02/05/23 16:30 IMPRESSION: No acute intrathoracic disease. Abdomen/Pelvis CT 02/05/23 18:05 IMPRESSION: 1. Severe right hydroureteronephrosis. 8mm calculus in the distal right ureter near the right UVJ. Additionally 8 mm calculus distal to this at the right UVJ/within the bladder. 2. Multiple nonobstructing left renal calculi. 3. Additional findings and details as above. Fleischner guidelines were followed. Assessment and Plan (1) Shingles: Status: Acute (2) Alcohol withdrawal: Status: Acute (3) Acidosis, lactic: Status: Acute (4) Hydroureteronephrosis: Status: Acute Plan Pt is a 57-year-old female with a PMH significant for alcohol use disorder with hx of withdrawals,?shingles, and anxiety who presents to the ED with?nausea, vomiting, back pain. CT of abd/pelvis showed two right 8mm obstructing calculi. Pt will be admitted to the hospital for treatment of alcohol withdrawal, UTI, and hydroureteronephrosis with likely surgical procedure tomorrow. Hydroureteronephrosis CT?of abdomen/pelvis showed severe right hydroureteronephrosis with two right 8mm calculi? Patient was severe right-sided flank pain, nausea, vomiting, diaphoresis Patient will be made NPO after midnight in anticipation of likely stenting by Urology tomorrow Urology consult Analgesics for pain management Hypokalemia Potassium 2.7 time of presentation Patient given potassium chloride in the ED Follow BMP Sepsis in the setting of UTI UA positive for UTI, patient is symptomatic with polyuria and dysuria Patient be treated with ceftriaxone, started 02/05/2023 Patient meets severe sepsis criteria: UTI, tachycardia, tachypnea, lactic acid Patient treated with IVF and broad-spectrum antibiotics Lactic acidosis Lactic acid 3.9 at time of presentation Likely secondary to sepsis Patient has received IVF, broad-spectrum antibiotics Repeat lactic acid Elevated troponins Initial troponin elevated at 19.1 Patient is symptomatic: Denies chest pain, EKG negative for ST elevations or depressions Most likely type 2 in the setting of demand ischemia secondary to sepsis Repeat troponin Alcohol withdrawal Patient with long history of alcohol use disorder with withdrawals Patient left treatment program on and has since resumed drinking at about her prior level Past few days patient has reduced alcohol intake and only drinking 3-4 nips per day Mild tremors of upper extremities, no tongue fasciculations, likely in mild withdrawal Continue phenobarb protocol Daily multivitamin, folic acid, thiamine Famotidine IVF Follow lytes, Mag, BMP CIWA scale Addiction Medicine consult Herpes zoster Patient with likely shingles rash on lower right back Patient with shingles outbreak in September of this year on mid right side Completed one treatment of Shingrex vaccine Valacyclovir 1000 mg p.o. Q 8 hours x7 days, started 02/05/2023 Pt should f/u outpatient with second Shingrex shot Mood disorder Continue home meds Full Code Attending:?Dr. French DVT Prophylaxis: Pneumatic boots Pt will require a hospitalization of at least two nights for treatment of?alcohol withdrawal, UTI, and hydroureteronephrosis with likely surgical procedure tomorrow. Time Spent With Patient Time: Total time managing care of this patient today ____ minutes. Quality Stroke Does the patient have a stroke diagnosis?: No VTE Prior VTE?: No VTE Risk Level:: Medical - moderate - high VTE Device Contraindication: N/A - Device Ordered VTE Drug Contraindication: Treatment Not Indicated
[2023-02-05 20:07] LABS: Bacteria Urine 1+ (None Seen); Hyaline Casts Urine 0-2 /LPF (0-2); Squamous Epithelial Cell Urine >20 /HPF (0-2); UACC Culture Trigger YES; WBC Urine >50 /HPF (0-5)
[2023-02-05] MEDS: PHENobarbitaL sodium 130 MG/ML VIAL IM Q3Hx2 143 MG IM (20:57)
--- NOTE | 2023-02-05 21:08 | PC.NURSE ---
pt assessed, spo2 87-91% on room air, placed on 2 liters of o2 nc
[2023-02-05 21:14] LABS: Amphetamine Screen Urine Not Detected (Not Detect); Barbiturates, Urine Not Detected (Not Detect); Benzodiazepines Screen Urine Not Detected (Not Detect); Cannabinoid Screen Urine Not Detected (Not Detect); Cocaine Screen Urine Not Detected (Not Detect); Fentanyl, urine Not Detected (Not Detect); Opiate Screen Urine Not Detected (Not Detect); Phencyclidine Screen Urine Not Detected (Not Detect)
--- NOTE | 2023-02-05 21:25 | MHC.CM.PN ---
IMM 02/05. Pt known to CM, with many admissions for ETOH intoxication. Pt is homeless and has been staying with different friends. Uses no DME/services. [employer] x3. HCP on file. HCP/son Donaldo ([phone]). Pt states she is interested in help with her alcohol use. Has been to detox in past. CM spoke to patient about meeting with addiction medicine to discuss recovery options. Pt is agreeable. [place] text to [facility]. Addiction med consult placed. D/C plan: home with recovery supports. Pt will need transportation. No clear plan from patient on where she will live. CM will follow for discharge planning needs.
[2023-02-05] MEDS: Gabapentin 600 MG TABLET PO (21:31)
[2023-02-05] MEDS: Lactated Ringers 1,000 ML 100 ML IVCONT (21:31)
[2023-02-05] MEDS: Propranolol HCL 10 MG TABLET PO (21:32)
[2023-02-05] MEDS: QUEtiapine Fumarate 50 MG TABLET 150 MG PO (21:40)
--- NOTE | 2023-02-05 22:32 | MHC.EDTECH ---
THIS PCT JUST ASSUMED CARE OF PT ,VITALS SIGN TAKEN ,PT SLEEPING ,PT HAS A BED ON MED SURGE WAITING TO GO UP .
--- NOTE | 2023-02-05 22:59 | MHC.EDTECH ---
PT REPEATED LABS DRAWN AND SENT TO LAB .
[2023-02-05 23:33] LABS: Troponin-I High Sensitivity 13.3 ng/L (<3.5-17.0)
[2023-02-06] VITALS (9 sets, daily range): BP systolic 110–134; BP diastolic 51–86; PULSE 70–98; RESP 14–18; TEMP 36–37.2; O2SAT 92–100
[2023-02-06] MEDS: PHENobarbitaL sodium 130 MG/ML VIAL IM Q3Hx2 143 MG IM (00:54)
[2023-02-06] MEDS: valACYclovir HCL 1,000 MG TABLET 1000 MG PO ×3 (03:07→20:30)
[2023-02-06 06:46] LABS: Hematocrit 33.3 % (37.0-47.0); Hemoglobin 10.9 g/dl (12.0-16.0); Mean Corpuscular HGB Conc 32.7 g/dl (31.0-35.0); Mean Corpuscular Hemoglobin 30.6 pg (27.0-33.0); Mean Corpuscular Volume 93.5 fL (80.0-98.0); Mean Platelet Volume 10.5 fL (9.4-12.3); Platelet Count 152 X10*3/uL (160-400); Red Blood Count 3.56 X10*6/uL (4.20-5.50); White Blood Count 15.7 X10*3/uL (4.8-10.8)
[2023-02-06 06:59] LABS: Anion Gap 13 (12-20); Blood Urea Nitrogen 17 mg/dL (9-16); Calcium 8.8 mg/dL (8.4-10.2); Carbon Dioxide 27 mmol/L (22-29); Chloride 102 mmol/L (96-108); Creatinine Clr Calc Pharmacy 70.6; Estimated Glomerular Filt Rate > 60; Glucose Random 102 mg/dL (60-115); Potassium 3.9 mmol/L (3.3-5.1); Sodium 138 mmol/L (135-145)
[2023-02-06] MEDS: Sertraline HCL 50 MG TABLET PO (08:46)
[2023-02-06] MEDS: Propranolol HCL 10 MG TABLET PO ×3 (08:46→20:30)
[2023-02-06] MEDS: Folic Acid 1 MG TABLET PO (08:46)
[2023-02-06] MEDS: Naltrexone HCl 50 MG TABLET PO (08:46)
[2023-02-06] MEDS: Thiamine HCL 100 MG TABLET PO (08:47)
[2023-02-06] MEDS: Lidocaine 4 % Patch ADH..PATCH 1 PATCH TRANSDERMA (08:47)
[2023-02-06] MEDS: Famotidine 20 MG TABLET PO ×2 (08:47→20:30)
[2023-02-06] MEDS: Multivitamin TABLET 1 TAB PO (08:47)
[2023-02-06] MEDS: PHENobarbitaL 30 MG TABLET PO ×2 (08:47→20:30)
[2023-02-06] MEDS: 0.9 % Sodium Chloride Flush 3 ML SYRINGE IVFLUSH ×2 (08:48→20:05)
[2023-02-06] MEDS: Lactated Ringers 1,000 ML 100 ML IVCONT ×2 (08:48→20:58)
--- NOTE | 2023-02-06 11:14 | HO.PM.IMPN ---
Subjective Subjective Date of Service: 02/06/23 Interval History: patient awake alert, being followed for Gram-negative waylon bacteremia due to urinary tract infection, and right ureteric stone, she is feeling better this morning less right flank pain, complaining of itching and discomfort right buttock at site of rash, denies fever chills, less urinary symptoms denies nausea vomiting is NPO for cystoscopy scheduled for later today, denies tremors or shakiness. Review of Systems all other system reviewed and negative. Physical Exam Vital Signs: Vital Signs: Last Vital Signs Temp 97.5 F 02/06/23 07:47 Pulse 87 02/06/23 07:47 Resp 16 02/06/23 07:47 BP 116/70 02/06/23 07:47 Pulse Ox 100 02/06/23 07:47 O2 Del Method Room Air 02/06/23 07:47 O2 Flow Rate 2 02/05/23 23:15 BMI result Body Mass Index 34.0 Const: Other: General awake alert x3, resting comfortably in no acute distress. anicteric sclera Neck supple,no JVD. CVS regular rate rhythm, Respiratory lungs clear to auscultation, no respiratory distress, no wheeze, no rhonchi. Gastrointestinal abdomen soft, non tender, bowel sounds audible, no guarding , no rigidity. Extremities no edema. Neuro nonfocal , moving all 4 extremity , no tremors,speech clear. Skin papular rash localized to right buttock not crossing midline Objective Data Active Medications Acetaminophen (Acetaminophen 325 Mg Tablet) 650 mg PO Q6H PRN PRN Reason: Pain, Mild (Pain Scale 1-3) Clonidine HCl (Clonidine Hcl 0.1 Mg Tablet) 0.1 mg PO BID PRN; Protocol PRN Reason: Anxiety Docusate Sodium (Docusate Sodium 100 Mg Capsule) 100 mg PO DAILY PRN PRN Reason: Constipation Famotidine (Famotidine 20 Mg Tablet) 20 mg PO BID [facility] Last Admin: 02/06/23 08:47 Dose: 20 mg Documented By: DEAN Fluticasone Propionate (Fluticasone Propionate Nasal 16 Gm [place]) 1 spray NOSTRIL-B DAILY [facility] Folic Acid (Folic Acid 1 Mg Tablet) 1 mg PO DAILY [facility] Stop: 02/09/23 08:59 Last Admin: 02/06/23 08:46 Dose: 1 mg Documented By: DEAN Gabapentin (Gabapentin 600 Mg Tablet) 600 mg PO BEDTIME [facility] Last Admin: 02/05/23 21:31 Dose: 600 mg Documented By: PHOEBE Hydroxyzine HCl (Hydroxyzine Hcl 25 Mg Tablet) 25 mg PO TID PRN PRN Reason: Anxiety Lactated Ringer's (Lr) 1,000 mls @ 100 mls/hr IVCONT .Q10H [facility] Last Admin: 02/06/23 08:48 Dose: 100 mls/hr Documented By: DEAN Ceftriaxone Sodium 1 gm/ (Sodium Chloride) 50 mls @ 100 mls/hr IV Q24H [facility] Lidocaine (Lidocaine 4 % Patch Adh..Patch) 1 patch TRANSDERMA DAILY [facility] Last Admin: 02/06/23 08:47 Dose: 1 patch Documented By: DEAN Loratadine (Loratadine 10 Mg Tablet) 10 mg PO DAILY PRN PRN Reason: Allergy Symptoms Melatonin (Melatonin 3 Mg Tablet) 6 mg PO BEDTIME [facility] Morphine Sulfate (Morphine Sulfate 4 Mg/Ml Cartridge) 4 mg IVPUSH Q4H PRN; Protocol PRN Reason: Pain, Severe (Pain Scale 7-10) Multivitamins/Vitamin C (Multivitamin Tablet) 1 tab PO DAILY [facility] Stop: 02/09/23 08:59 Last Admin: 02/06/23 08:47 Dose: 1 tab Documented By: DEAN Naltrexone HCl (Naltrexone Hcl 50 Mg Tablet) 50 mg PO DAILY [facility] Last Admin: 02/06/23 08:46 Dose: 50 mg Documented By: DEAN Ondansetron HCl (Ondansetron Hcl 4 Mg/2 Ml Vial) 4 mg IVPUSH Q8H PRN PRN Reason: Nausea and Vomiting Pharmacy Consult (Consult Rx Etoh Phenob Im/Po) 0 each MISCELLANE ONCE PRN; Protocol PRN Reason: Consult order Pharmacy Consult (Consult Rx Perform Med Rec) 1 each MISCELLANE ONCE PRN PRN Reason: Consult order Phenobarbital (Phenobarbital 30 Mg Tablet) 30 mg PO BID [facility] Stop: 02/07/23 21:01 Last Admin: 02/06/23 08:47 Dose: 30 mg Documented By: DEAN Phenobarbital (Phenobarbital 15 Mg Tablet) 15 mg PO BID [facility] Stop: 02/09/23 21:01 Phenobarbital (Phenobarbital 15 Mg Tablet) 15 mg PO DAILY [facility] Stop: 02/11/23 09:01 Propranolol HCl (Propranolol Hcl 10 Mg Tablet) 10 mg PO TID [facility]; Protocol Last Admin: 02/06/23 08:46 Dose: 10 mg Documented By: DEAN Quetiapine Fumarate (Quetiapine Fumarate 50 Mg Tablet) 150 mg PO BEDTIME [facility] Last Admin: 02/05/23 21:40 Dose: 150 mg Documented By: PHOEBE Sertraline HCl (Sertraline Hcl 50 Mg Tablet) 50 mg PO DAILY [facility] Last Admin: 02/06/23 08:46 Dose: 50 mg Documented By: DEAN Sodium Chloride (0.9 % Sodium Chloride Flush 3 Ml Syringe) 3 ml IVFLUSH QSHIFT [facility] Last Admin: 02/06/23 08:48 Dose: 3 ml Documented By: DEAN Thiamine HCl (Thiamine Hcl 100 Mg Tablet) 100 mg PO DAILY [facility] Stop: 02/09/23 08:59 Last Admin: 02/06/23 08:47 Dose: 100 mg Documented By: DEAN Valacyclovir HCl (Valacyclovir Hcl 1,000 Mg Tablet) 1,000 mg PO Q8H [facility] Last Admin: 02/06/23 03:07 Dose: 1,000 mg Documented By: FELISHA Labs 02/06/23 05:51 02/06/23 05:51 Labs: Laboratory Results - last 24 hr 02/05/23 02/05/23 02/05/23 16:48 16:48 16:48 MCV 89.6 MCH 30.3 MCHC 33.8 RDW 14.3 Plt Count 151 L D MPV 9.9 Immature Gran % (Auto) 0.9 H Neut % (Auto) 90.6 H Lymph % (Auto) 7.9 L [place]ahan % (Auto) 0.4 L Eos % (Auto) 0.0 Baso % (Auto) 0.2 Lymph # (Auto) 0.4 L [place] # (Auto) 0.0 L Eos # (Auto) 0.0 Baso # (Auto) 0.0 Abs Immat Gran (auto) 0.04 H Absolute Neuts (auto) 4.1 Absolute Nucleated RBC 0.000 Nucleated RBC % (auto) 0.0 Smear Tech's Comments VERIFIED PT 10.7 INR 0.9 APTT 24.2 L D Anion Gap 20 Estim Creat Clear Calc 51.0 Estimated GFR 48 Random Glucose 151 H Lactic Acid Calcium 9.9 D Magnesium 1.6 Total Bilirubin 2.3 H Direct Bilirubin 0.7 H AST 39 H ALT 21 Alkaline Phosphatase 104 Troponin I High Sens Total Protein 7.9 Albumin 4.1 Lipase 38 Urine Color Urine Appearance Urine pH Ur Specific [place] Urine Protein Urine Glucose (UA) Urine Ketones Urine Blood Urine Nitrite Ur Leukocyte Esterase Urine RBC Urine WBC Ur Squamous Epith Cells Urine Bacteria Hyaline Casts Urine Opiates Screen Urine Fentanyl Screen Ur Barbiturates Screen Ur Phencyclidine Scrn Ur Amphetamines Screen U Benzodiazepines Scrn Urine Cocaine Screen U Marijuana (THC) Screen Ethyl Alcohol 02/05/23 02/05/23 02/05/23 16:48 16:48 16:48 MCV MCH MCHC RDW Plt Count MPV Immature Gran % (Auto) Neut % (Auto) Lymph % (Auto) Callahan % (Auto) Eos % (Auto) Baso % (Auto) Lymph # (Auto) Callahan # (Auto) Eos # (Auto) Baso # (Auto) Abs Immat Gran (auto) Absolute Neuts (auto) Absolute Nucleated RBC Nucleated RBC % (auto) Smear Tech's Comments PT INR APTT Anion Gap Estim Creat Clear Calc Estimated GFR Random Glucose Lactic Acid 3.9 H* Calcium Magnesium Total Bilirubin Direct Bilirubin AST ALT Alkaline Phosphatase Troponin I High Sens 19.1 H Total Protein Albumin Lipase Urine Color Urine Appearance Urine pH Ur Specific [place] Urine Protein Urine Glucose (UA) Urine Ketones Urine Blood Urine Nitrite Ur Leukocyte Esterase Urine RBC Urine WBC Ur Squamous Epith Cells Urine Bacteria Hyaline Casts Urine Opiates Screen Urine Fentanyl Screen Ur Barbiturates Screen Ur Phencyclidine Scrn Ur Amphetamines Screen U Benzodiazepines Scrn Urine Cocaine Screen U Marijuana (THC) Screen Ethyl Alcohol < 10 02/05/23 02/05/23 02/05/23 19:38 19:38 22:58 MCV MCH MCHC RDW Plt Count MPV Immature Gran % (Auto) Neut % (Auto) Lymph % (Auto) [place]ahan % (Auto) Eos % (Auto) Baso % (Auto) Lymph # (Auto) [place]ahan # (Auto) Eos # (Auto) Baso # (Auto) Abs Immat Gran (auto) Absolute Neuts (auto) Absolute Nucleated RBC Nucleated RBC % (auto) Smear Tech's Comments PT INR APTT Anion Gap Estim Creat Clear Calc Estimated GFR Random Glucose Lactic Acid Calcium Magnesium Total Bilirubin Direct Bilirubin AST ALT Alkaline Phosphatase Troponin I High Sens 13.3 Total Protein Albumin Lipase Urine Color [place] Urine Appearance Clear Urine pH 5.0 Ur Specific Bryant 1.015 Urine Protein 100 (2+) H Urine Glucose (UA) 100 H Urine Ketones 15 Urine Blood Small (1+) H Urine Nitrite Positive H Ur Leukocyte Esterase Moderate (2+) H Urine RBC 11-20 H Urine WBC >50 H Ur Squamous Epith Cells >20 Urine Bacteria 1+ Hyaline Casts 0-2 Urine Opiates Screen Not Detected Urine Fentanyl Screen Not Detected Ur Barbiturates Screen Not Detected Ur Phencyclidine Scrn Not Detected Ur Amphetamines Screen Not Detected U Benzodiazepines Scrn Not Detected Urine Cocaine Screen Not Detected U Marijuana (THC) Screen Not Detected Ethyl Alcohol 02/05/23 02/06/23 02/06/23 22:58 05:51 05:51 MCV 93.5 MCH 30.6 MCHC 32.7 RDW 15.0 Plt Count 152 L MPV 10.5 Immature Gran % (Auto) Neut % (Auto) Lymph % (Auto) [place] % (Auto) Eos % (Auto) Baso % (Auto) Lymph # (Auto) [place] # (Auto) Eos # (Auto) Baso # (Auto) Abs Immat Gran (auto) Absolute Neuts (auto) Absolute Nucleated RBC 0.000 Nucleated RBC % (auto) 0.0 Smear Tech's Comments PT INR APTT Anion Gap 13 Estim Creat Clear Calc 70.6 Estimated GFR > 60 Random Glucose 102 Lactic Acid 2.0 Calcium 8.8 D Magnesium 2.0 Total Bilirubin Direct Bilirubin AST ALT Alkaline Phosphatase Troponin I High Sens Total Protein Albumin Lipase Urine Color Urine Appearance Urine pH Ur Specific [place] Urine Protein Urine Glucose (UA) Urine Ketones Urine Blood Urine Nitrite Ur Leukocyte Esterase Urine RBC Urine WBC Ur Squamous Epith Cells Urine Bacteria Hyaline Casts Urine Opiates Screen Urine Fentanyl Screen Ur Barbiturates Screen Ur Phencyclidine Scrn Ur Amphetamines Screen U Benzodiazepines Scrn Urine Cocaine Screen U Marijuana (THC) Screen Ethyl Alcohol Microbiology Microbiology Results: Microbiology 02/05/23 16:47 Blood Culture - Preliminary Blood - Venous Prelim: GNR Gram Stain only 02/05/23 16:47 Blood Culture - Preliminary Blood - Venous Prelim: GNR Gram Stain only Assessment and Plan (1) Hydroureteronephrosis: Status: Acute (2) Shingles: Status: Acute (3) Alcohol withdrawal: Status: Acute (4) Acidosis, lactic: Status: Acute (5) Bacteremia: Status: Acute Plan 57-year-old female with a PMH significant for alcohol use disorder with hx of withdrawals,?shingles, and anxiety who presents to the ED with?nausea, vomiting, back pain. CT of abd/pelvis showed two right 8mm obstructing calculi. Pt will be admitted to the hospital for treatment of alcohol withdrawal, UTI, and hydroureteronephrosis with likely surgical procedure tomorrow. Sepsis due to UTI with Hydroureteronephrosis. tachycardia tachypnea and lactic acidosis resolved feeling better, less back discomfort this a.m. denies nausea vomiting CT?of abdomen/pelvis showed severe right hydroureteronephrosis with two right 8mm calculi? continue IV ceftriaxone, started 02/05/2023 NPO for cystoscopy by Dr. Gan this morning Analgesics for pain management Gram-negative waylon bacteremia likely due to UTI follow final blood culture report continue IV ceftriaxone as above. Hypokalemia Potassium 2.7 on admission improved to 3.9 with potassium replacement. Lactic acidosis Lactic acid 3.9 at time of presentation, Likely secondary to sepsis resolved with IV fluids Elevated troponins Initial troponin elevated at 19.1m, repeat troponin 13.3, Denies chest pain, EKG negative for ST elevations or depressions Most likely secondary to sepsis, no further cardiac workup initiated. Alcohol withdrawal Patient left treatment program on and has since resumed drinking at about her prior level Continue phenobarb protocol,Daily multivitamin, folic acid, thiamine Follow lytes, Mag, BMP CIWA scale Addiction Medicine consult elevated total bili and AST likely due to alcohol use and sepsis will follow LFTs, patient asymptomatic. Herpes zoster likely shingles rash on lower right back Patient with shingles outbreak in September of this year on mid right side Completed one treatment of Shingrex vaccine, recommend second Shingrex shot continue Valacyclovir 1000 mg p.o. Q 8 hours x7 days, started 02/05/2023 contact precautions. Mood disorder Continue home meds Full Code DVT Prophylaxis: Pneumatic boots Pt will require continued hospitalization for treatment of?alcohol withdrawal, Gram-negative waylon bacteremia, UTI, and hydroureteronephrosis . Time Spent With Patient Time: Total time managing care of this patient today ____ minutes. Quality Stroke Does the patient have a stroke diagnosis?: No VTE Prior VTE?: No VTE Risk Level:: Medical - moderate - high VTE Device Contraindication: N/A - Device Ordered VTE Drug Contraindication: Treatment Not Indicated
--- NOTE | 2023-02-06 13:59 | MHC.IC ---
Patient has Shingles rash to lower back. Please keep rash covered at all times and maintain contact precautions.
--- NOTE | 2023-02-06 14:30 | PM.UROCN ---
History of Present Illness Consult details Consult date: 02/06/23 Narrative: Consulting complaint right hydroureteronephrosis 57-year-old female Presents to emergency room with nausea, vomiting, right back pain States pain started in prior 12 hours Unable to eat or drink secondary to nausea Recently been under treatment for alcohol use disorder Initial laboratory show creatinine 1.2, lactate 3.9, UA positive for UTI, WBC 15.7, calcium 8.[address] severe right hydroureteronephrosis with distal right 8 mm calculi, small calculi a left side Recommend cystoscopy, retrograde, stent placement Review of Systems Constitutional: Constitutional: Reports as per HPI and Reports no additional constitutional complaints Cardiovascular: Cardiovascular: Reports as per HPI and Reports no additional cardiovascular complaints Respiratory: Respiratory: Reports as per HPI and Reports no additional respiratory complaints Gastrointestinal: Gastrointestinal: Reports as per HPI and Reports no additional gastrointestinal complaints Genitourinary: Genitourinary: Reports as per HPI Musculoskeletal: Musculoskeletal: Reports no additional musculoskeletal complaints and Reports as per HPI Neurologic: Reports system reviewed and no additional complaints, except as documented and Reports as per HPI [facility] Past Medical History Medical History Depression ETOH abuse Mood disorder as late effect of traumatic brain injury TBI (traumatic brain injury) Social History Social History Household Members: Unknown / Unable to assess Household Members Other:: Reports has been [employer] surfing. Housing: Apartment Unable to assess alcohol history related to: Unknown Alcohol intake: current Alcohol intake frequency: 3 or more drinks per day Alcohol type: hard liquor Patient Tobacco Use Status: Never used Tobacco Smoked in Last 30 Days: No e-Cigarette/Vaping Use: Never Used Second Hand Smoke Exposure: No Use of substances other than those prescribed or required for medical reasons: Unable to respond Substance Use Type: Caffiene Currently Displaying Signs/Symptoms of Drug Intoxication Withdrawal: No Any prior treatment program specific to substance use: No Advance Directives: Yes Advance Directives on File: Yes Advance Directives Date on File: 05/06/21 Do you have thoughts of harming others: None Do you have a plan to hurt others: No Plan Recently lost weight without trying: No Patient : No : No Poor oral hygiene: No service: No Current occupational status: disabled Sexual orientation: Straight/Heterosexual Meds Allergies Allergy/AdvReac Type Severity Reaction Status Date / Time No Known Allergies Allergy Verified 01/30/23 22:14 [No Known Allergies*] Active Medications: Current Medications Acetaminophen (Acetaminophen 325 Mg Tablet) 650 mg PO Q6H PRN PRN Reason: Pain, Mild (Pain Scale 1-3) Clonidine HCl (Clonidine Hcl 0.1 Mg Tablet) 0.1 mg PO BID PRN; Protocol PRN Reason: Anxiety Docusate Sodium (Docusate Sodium 100 Mg Capsule) 100 mg PO DAILY PRN PRN Reason: Constipation Famotidine (Famotidine 20 Mg Tablet) 20 mg PO BID [facility] Last Admin: 02/06/23 08:47 Dose: 20 mg Fluticasone Propionate (Fluticasone Propionate Nasal 16 Gm [place]) 1 spray NOSTRIL-B DAILY [facility] Last Admin: 02/06/23 11:17 Dose: Not Given Folic Acid (Folic Acid 1 Mg Tablet) 1 mg PO DAILY [facility] Stop: 02/09/23 08:59 Last Admin: 02/06/23 08:46 Dose: 1 mg Gabapentin (Gabapentin 600 Mg Tablet) 600 mg PO BEDTIME [facility] Last Admin: 02/05/23 21:31 Dose: 600 mg Hydroxyzine HCl (Hydroxyzine Hcl 25 Mg Tablet) 25 mg PO TID PRN PRN Reason: Anxiety Lactated Ringer's (Lr) 1,000 mls @ 100 mls/hr IVCONT .Q10H [facility] Last Admin: 02/06/23 08:48 Dose: 100 mls/hr Ceftriaxone Sodium 1 gm/ (Sodium Chloride) 50 mls @ 100 mls/hr IV Q24H [facility] Lidocaine (Lidocaine 4 % Patch Adh..Patch) 1 patch TRANSDERMA DAILY [facility] Last Admin: 02/06/23 08:47 Dose: 1 patch Loratadine (Loratadine 10 Mg Tablet) 10 mg PO DAILY PRN PRN Reason: Allergy Symptoms Melatonin (Melatonin 3 Mg Tablet) 6 mg PO BEDTIME [facility] Morphine Sulfate (Morphine Sulfate 4 Mg/Ml Cartridge) 4 mg IVPUSH Q4H PRN; Protocol PRN Reason: Pain, Severe (Pain Scale 7-10) Multivitamins/Vitamin C (Multivitamin Tablet) 1 tab PO DAILY [facility] Stop: 02/09/23 08:59 Last Admin: 02/06/23 08:47 Dose: 1 tab Naltrexone HCl (Naltrexone Hcl 50 Mg Tablet) 50 mg PO DAILY [facility] Last Admin: 02/06/23 08:46 Dose: 50 mg Ondansetron HCl (Ondansetron Hcl 4 Mg/2 Ml Vial) 4 mg IVPUSH Q8H PRN PRN Reason: Nausea and Vomiting Pharmacy Consult (Consult Rx Etoh Phenob Im/Po) 0 each MISCELLANE ONCE PRN; Protocol PRN Reason: Consult order Pharmacy Consult (Consult Rx Perform Med Rec) 1 each MISCELLANE ONCE PRN PRN Reason: Consult order Phenobarbital (Phenobarbital 30 Mg Tablet) 30 mg PO BID [facility] Stop: 02/07/23 21:01 Last Admin: 02/06/23 08:47 Dose: 30 mg Phenobarbital (Phenobarbital 15 Mg Tablet) 15 mg PO BID [facility] Stop: 02/09/23 21:01 Phenobarbital (Phenobarbital 15 Mg Tablet) 15 mg PO DAILY [facility] Stop: 02/11/23 09:01 Propranolol HCl (Propranolol Hcl 10 Mg Tablet) 10 mg PO TID [facility]; Protocol Last Admin: 02/06/23 08:46 Dose: 10 mg Quetiapine Fumarate (Quetiapine Fumarate 50 Mg Tablet) 150 mg PO BEDTIME [facility] Last Admin: 02/05/23 21:40 Dose: 150 mg Sertraline HCl (Sertraline Hcl 50 Mg Tablet) 50 mg PO DAILY [facility] Last Admin: 02/06/23 08:46 Dose: 50 mg Sodium Chloride (0.9 % Sodium Chloride Flush 3 Ml Syringe) 3 ml IVFLUSH QSHIFT [facility] Last Admin: 02/06/23 08:48 Dose: 3 ml Thiamine HCl (Thiamine Hcl 100 Mg Tablet) 100 mg PO DAILY [facility] Stop: 02/09/23 08:59 Last Admin: 02/06/23 08:47 Dose: 100 mg Valacyclovir HCl (Valacyclovir Hcl 1,000 Mg Tablet) 1,000 mg PO Q8H [facility] Last Admin: 02/06/23 11:19 Dose: 1,000 mg Home Medications Medication Instructions Recorded Confirmed Last Taken Type quetiapine 50 mg tablet 150 mg PO BEDTIME 10/30/22 02/05/23 Unknown History acetaminophen 325 mg tablet 650 mg PO Q6H PRN FEVER/PAIN 02/05/23 02/05/23 Unknown History clonidine HCl 0.1 mg tablet 0.1 mg PO BID PRN Anxiety 02/05/23 02/05/23 Unknown History fluticasone propionate 50 1 spray intranasal DAILY 02/05/23 02/05/23 Unknown History mcg/actuation nasal spray,suspension gabapentin 600 mg tablet 600 mg PO BEDTIME 02/05/23 02/05/23 Unknown History hydroxyzine HCl 25 mg tablet 25 mg PO TID PRN Anxiety 02/05/23 02/05/23 Unknown History lidocaine 5 % topical patch 1 patch topical DAILY 02/05/23 02/05/23 Unknown History loratadine 10 mg tablet 10 mg PO DAILY PRN Allergy Symptoms 02/05/23 02/05/23 Unknown History melatonin 5 mg tablet 5 mg PO BEDTIME 02/05/23 02/05/23 Unknown History multivitamin with minerals-ferrous 1 tab PO DAILY 02/05/23 02/05/23 Unknown History sulfate 4.5 mg iron tablet (One Daily Multivitamins with Minerals) naltrexone 50 mg tablet 50 mg PO DAILY 02/05/23 02/05/23 Unknown History naltrexone microspheres 380 mg 380 mg IM Q4W 02/05/23 02/05/23 Unknown History intramuscular suspension,extended release (Vivitrol) propranolol 10 mg tablet 10 mg PO TID 02/05/23 02/05/23 Unknown History sertraline 50 mg tablet 50 mg PO DAILY 02/05/23 02/05/23 Unknown History Physical Exam Vital Signs: Vital Signs: Last Vital Signs Temp 97.5 F 02/06/23 07:47 Pulse 87 02/06/23 07:47 Resp 16 02/06/23 07:47 BP 116/70 02/06/23 07:47 Pulse Ox 100 02/06/23 07:47 O2 Del Method Room Air 02/06/23 07:47 O2 Flow Rate 2 02/05/23 23:15 BMI result Body Mass Index 34.0 Const: General: cooperative, healthy appearing, comfortable and no acute distress Orientation/consciousness: patient oriented x3 HEENT: Face and sinus: Yes normal facial exam Mouth: moist mucous membranes Neck: Neck: Yes normal visual inspection, Yes full ROM and Yes trachea midline Chest: Chest palpation & inspection: normal inspection of the chest Resp: Effort & Inspection: normal respiratory effort, able to speak in complete sentences and no respiratory distress GI: Inspection: Yes normal to inspection Back/Spine/Pelvis: Cervical Spine: normal cervical lordosis Thoracic/Lumbar Spine: thoracic and lumbar spine normal to inspection Skin: General skin exam: no rashes or lesions noted Neuro: General: patient oriented x3, tone normal and moves all extremities Extrem: General: Yes normal to inspection and Yes capillary refill normal Results Labs 02/06/23 05:51 02/06/23 05:51 Labs: Abnormal lab results 02/05/23 02/05/23 02/05/23 Range/Units 16:48 16:48 16:48 WBC 4.5 L (4.8-10.8) X10*3/uL RBC 4.13 L (4.20-5.50) X10*6/uL Hgb (12.0-16.0) g/dl Hct (37.0-47.0) % Plt Count 151 L D (160-400) X10*3/uL Immature Gran % (Auto) 0.9 H (0.0-0.4) % Neut % (Auto) 90.6 H (45-73) % Lymph % (Auto) 7.9 L (20-40) % [place] % (Auto) 0.4 L (2-11) % Lymph # (Auto) 0.4 L (1.2-4.9) X10*3/uL [place] # (Auto) 0.0 L (0.1-1.2) X10*3/uL Abs Immat Gran (auto) 0.04 H (0.00-0.03) X10*3/uL APTT 24.2 L D (26.0-36.4) SEC Potassium 2.7 L D (3.3-5.1) mmol/L Chloride 94 L (96-108) mmol/L BUN 22 H (9-16) mg/dL Random Glucose 151 H (60-115) mg/dL Lactic Acid (0.5-2.0) mmol/L Total Bilirubin 2.3 H (0.0-1.0) mg/dL Direct Bilirubin 0.7 H (0.0-0.5) mg/dL AST 39 H (5-31) U/L Troponin I High Sens (<3.5-17.0) ng/L Urine Protein (Neg-Trace) mg/dL Urine Glucose (UA) (Negative) mg/dL Urine Blood (Negative) Urine Nitrite (Negative) Ur Leukocyte Esterase (Negative) Urine RBC (0-2) /HPF Urine WBC (0-5) /HPF 02/05/23 02/05/23 02/05/23 Range/Units 16:48 16:48 19:38 WBC (4.8-10.8) X10*3/uL RBC (4.20-5.50) X10*6/uL Hgb (12.0-16.0) g/dl Hct (37.0-47.0) % Plt Count (160-400) X10*3/uL Immature Gran % (Auto) (0.0-0.4) % Neut % (Auto) (45-73) % Lymph % (Auto) (20-40) % [place] % (Auto) (2-11) % Lymph # (Auto) (1.2-4.9) X10*3/uL [place] # (Auto) (0.1-1.2) X10*3/uL Abs Immat Gran (auto) (0.00-0.03) X10*3/uL APTT (26.0-36.4) SEC Potassium (3.3-5.1) mmol/L Chloride (96-108) mmol/L BUN (9-16) mg/dL Random Glucose (60-115) mg/dL Lactic Acid 3.9 H* (0.5-2.0) mmol/L Total Bilirubin (0.0-1.0) mg/dL Direct Bilirubin (0.0-0.5) mg/dL AST (5-31) U/L Troponin I High Sens 19.1 H (<3.5-17.0) ng/L Urine Protein 100 (2+) H (Neg-Trace) mg/dL Urine Glucose (UA) 100 H (Negative) mg/dL Urine Blood Small (1+) H (Negative) Urine Nitrite Positive H (Negative) Ur Leukocyte Esterase Moderate (2+) H (Negative) Urine RBC 11-20 H (0-2) /HPF Urine WBC >50 H (0-5) /HPF 02/06/23 02/06/23 Range/Units 05:51 05:51 WBC 15.7 H (4.8-10.8) X10*3/uL RBC 3.56 L (4.20-5.50) X10*6/uL Hgb 10.9 L (12.0-16.0) g/dl Hct 33.3 L (37.0-47.0) % Plt Count 152 L (160-400) X10*3/uL Immature Gran % (Auto) (0.0-0.4) % Neut % (Auto) (45-73) % Lymph % (Auto) (20-40) % [place] % (Auto) (2-11) % Lymph # (Auto) (1.2-4.9) X10*3/uL [place] # (Auto) (0.1-1.2) X10*3/uL Abs Immat Gran (auto) (0.00-0.03) X10*3/uL APTT (26.0-36.4) SEC Potassium (3.3-5.1) mmol/L Chloride (96-108) mmol/L BUN 17 H (9-16) mg/dL Random Glucose (60-115) mg/dL Lactic Acid (0.5-2.0) mmol/L Total Bilirubin (0.0-1.0) mg/dL Direct Bilirubin (0.0-0.5) mg/dL AST (5-31) U/L Troponin I High Sens (<3.5-17.0) ng/L Urine Protein (Neg-Trace) mg/dL Urine Glucose (UA) (Negative) mg/dL Urine Blood (Negative) Urine Nitrite (Negative) Ur Leukocyte Esterase (Negative) Urine RBC (0-2) /HPF Urine WBC (0-5) /HPF Short CBC 02/05/23 02/06/23 Range/Units 16:48 05:51 WBC 4.5 L 15.7 H (4.8-10.8) X10*3/uL Hgb 12.5 10.9 L (12.0-16.0) g/dl Hct 37.0 33.3 L (37.0-47.0) % Plt Count 151 L D 152 L (160-400) X10*3/uL BMP 02/05/23 02/06/23 16:48 05:51 Sodium 136 138 Potassium 2.7 L D 3.9 D Chloride 94 L 102 Carbon Dioxide 25 27 BUN 22 H 17 H Creatinine 1.15 0.83 Calcium 9.9 D 8.8 D Liver Function 02/05/23 Range/Units 16:48 Total Bilirubin 2.3 H (0.0-1.0) mg/dL Direct Bilirubin 0.7 H (0.0-0.5) mg/dL AST 39 H (5-31) U/L ALT 21 (0-31) U/L Alkaline Phosphatase 104 (39-117) U/L Albumin 4.1 (3.5-5.0) g/dL Urine 02/05/23 Range/Units 19:38 Urine Color [place] Urine Appearance Clear Urine pH 5.0 (5.0-9.0) Ur Specific [place] 1.015 (1.005-1.025) Urine Protein 100 (2+) H (Neg-Trace) mg/dL Urine Glucose (UA) 100 H (Negative) mg/dL All other labs normal. Assessment and Plan (1) Hydroureteronephrosis: Status: Acute Plan Risks, benefits and alternatives to therapy were discussed. These include but are not limited to infection, bleeding, damage to local organs and tissues, need for further interventions. Anesthetic risks regarding cardiac arrhythmia, blood clots, and potential mortality were discussed. The patient understands the typical recovery time and the outpatient nature of the procedure. After consideration of these risks the patient gives full informed consent and they wish to move ahead with the procedure. Cystoscopy, right retrograde, right stent placement Time Spent With Patient Time: Total time managing care of this patient today ____ minutes. Procedures Date of Service Date of Service: 02/06/23
--- NOTE | 2023-02-06 17:40 | MHC.SHP ---
Pre-Procedural Eval Section A Date of Service: 02/06/23 The patient is an INPATIENT: Yes Changes since office visit: No Cold of Flu in the past 2 weeks, No New Medical Problems, No Changes in Medication and No Patient answered all questions The History & Physical has been completed within 30 days and I have reviewed it.: Yes Section B Chief Complaint: Hydroureternephrosis,UTI,Shingles Details of Present Illness: cystoscopy, right retrograde, right stent placement Allergies: Allergies Allergy/AdvReac Type Severity Reaction Status Date / Time No Known Allergies Allergy Verified 01/30/23 22:14 [No Known Allergies*] Plan Diagnosis/Plan: Unchanged I have reviewed the history and physical and performed a pertinent physical examination on my patient. No changes have occurred unless specified. Time Spent With Patient Time: Total time managing care of this patient today ____ minutes.
--- NOTE | 2023-02-06 18:02 | P.CONAN_ITS ---
[facility] Active Problems Active Problems: All Active Problems (Updated 02/06/23 @ 11:35 by Rodrick Finney MD) Bacteremia (Acute) Hydroureteronephrosis (Acute) Shingles (Acute) Alcohol withdrawal (Acute) Acidosis, lactic (Acute) Past Medical History Medical History Depression ETOH abuse Mood disorder as late effect of traumatic brain injury TBI (traumatic brain injury) Social History Social History Household Members: Unknown / Unable to assess Household Members Other:: Reports has been [employer]. Housing: Apartment Unable to assess alcohol history related to: Unknown Alcohol intake: current Alcohol intake frequency: a few times a week Alcohol type: hard liquor Patient Tobacco Use Status: Never used Tobacco Smoked in Last 30 Days: No e-Cigarette/Vaping Use: Never Used Second Hand Smoke Exposure: No Use of substances other than those prescribed or required for medical reasons: No Substance Use Type: Caffiene Currently Displaying Signs/Symptoms of Drug Intoxication Withdrawal: No Any prior treatment program specific to substance use: No Advance Directives: Yes Advance Directives on File: Yes Advance Directives Date on File: 05/06/21 Do you have thoughts of harming others: None Do you have a plan to hurt others: No Plan Recently lost weight without trying: No Patient : No : No Poor oral hygiene: No service: No Current occupational status: disabled Sexual orientation: Straight/Heterosexual Meds Allergies Allergy/AdvReac Type Severity Reaction Status Date / Time No Known Allergies Allergy Verified 01/30/23 22:14 [No Known Allergies*] Active Medications: Current Medications Acetaminophen (Acetaminophen 325 Mg Tablet) 650 mg PO Q6H PRN PRN Reason: Pain, Mild (Pain Scale 1-3) Clonidine HCl (Clonidine Hcl 0.1 Mg Tablet) 0.1 mg PO BID PRN; Protocol PRN Reason: Anxiety Docusate Sodium (Docusate Sodium 100 Mg Capsule) 100 mg PO DAILY PRN PRN Reason: Constipation Famotidine (Famotidine 20 Mg Tablet) 20 mg PO BID [facility] Last Admin: 02/06/23 08:47 Dose: 20 mg Fluticasone Propionate (Fluticasone Propionate Nasal 16 Gm [place]) 1 spray NOSTRIL-B DAILY [facility] Last Admin: 02/06/23 11:17 Dose: Not Given Folic Acid (Folic Acid 1 Mg Tablet) 1 mg PO DAILY [facility] Stop: 02/09/23 08:59 Last Admin: 02/06/23 08:46 Dose: 1 mg Gabapentin (Gabapentin 600 Mg Tablet) 600 mg PO BEDTIME [facility] Last Admin: 02/05/23 21:31 Dose: 600 mg Hydroxyzine HCl (Hydroxyzine Hcl 25 Mg Tablet) 25 mg PO TID PRN PRN Reason: Anxiety Lactated Ringer's (Lr) 1,000 mls @ 100 mls/hr IVCONT .Q10H [facility] Last Infusion: 02/06/23 16:40 Dose: 0 mls/hr Ceftriaxone Sodium 1 gm/ (Sodium Chloride) 50 mls @ 100 mls/hr IV Q24H [facility] Lidocaine (Lidocaine 4 % Patch Adh..Patch) 1 patch TRANSDERMA DAILY [facility] Last Admin: 02/06/23 08:47 Dose: 1 patch Loratadine (Loratadine 10 Mg Tablet) 10 mg PO DAILY PRN PRN Reason: Allergy Symptoms Melatonin (Melatonin 3 Mg Tablet) 6 mg PO BEDTIME [facility] Morphine Sulfate (Morphine Sulfate 4 Mg/Ml Cartridge) 4 mg IVPUSH Q4H PRN; Protocol PRN Reason: Pain, Severe (Pain Scale 7-10) Multivitamins/Vitamin C (Multivitamin Tablet) 1 tab PO DAILY [facility] Stop: 02/09/23 08:59 Last Admin: 02/06/23 08:47 Dose: 1 tab Naltrexone HCl (Naltrexone Hcl 50 Mg Tablet) 50 mg PO DAILY [facility] Last Admin: 02/06/23 08:46 Dose: 50 mg Ondansetron HCl (Ondansetron Hcl 4 Mg/2 Ml Vial) 4 mg IVPUSH Q8H PRN PRN Reason: Nausea and Vomiting Pharmacy Consult (Consult Rx Etoh Phenob Im/Po) 0 each MISCELLANE ONCE PRN; Protocol PRN Reason: Consult order Pharmacy Consult (Consult Rx Perform Med Rec) 1 each MISCELLANE ONCE PRN PRN Reason: Consult order Phenobarbital (Phenobarbital 30 Mg Tablet) 30 mg PO BID [facility] Stop: 02/07/23 21:01 Last Admin: 02/06/23 08:47 Dose: 30 mg Phenobarbital (Phenobarbital 15 Mg Tablet) 15 mg PO BID [facility] Stop: 02/09/23 21:01 Phenobarbital (Phenobarbital 15 Mg Tablet) 15 mg PO DAILY [facility] Stop: 02/11/23 09:01 Propranolol HCl (Propranolol Hcl 10 Mg Tablet) 10 mg PO TID [facility]; Protocol Last Admin: 02/06/23 15:29 Dose: 10 mg Quetiapine Fumarate (Quetiapine Fumarate 50 Mg Tablet) 150 mg PO BEDTIME [facility] Last Admin: 02/05/23 21:40 Dose: 150 mg Sertraline HCl (Sertraline Hcl 50 Mg Tablet) 50 mg PO DAILY [facility] Last Admin: 02/06/23 08:46 Dose: 50 mg Sodium Chloride (0.9 % Sodium Chloride Flush 3 Ml Syringe) 3 ml IVFLUSH QSHIFT [facility] Last Admin: 02/06/23 15:02 Dose: Not Given Thiamine HCl (Thiamine Hcl 100 Mg Tablet) 100 mg PO DAILY [facility] Stop: 02/09/23 08:59 Last Admin: 02/06/23 08:47 Dose: 100 mg Valacyclovir HCl (Valacyclovir Hcl 1,000 Mg Tablet) 1,000 mg PO Q8H [facility] Last Admin: 02/06/23 11:19 Dose: 1,000 mg Home Medications Medication Instructions Recorded Confirmed Last Taken Type quetiapine 50 mg tablet 150 mg PO BEDTIME 10/30/22 02/05/23 Unknown History acetaminophen 325 mg tablet 650 mg PO Q6H PRN FEVER/PAIN 02/05/23 02/05/23 Unknown History clonidine HCl 0.1 mg tablet 0.1 mg PO BID PRN Anxiety 02/05/23 02/05/23 Unknown History fluticasone propionate 50 1 spray intranasal DAILY 02/05/23 02/05/23 Unknown History mcg/actuation nasal spray,suspension gabapentin 600 mg tablet 600 mg PO BEDTIME 02/05/23 02/05/23 Unknown History hydroxyzine HCl 25 mg tablet 25 mg PO TID PRN Anxiety 02/05/23 02/05/23 Unknown History lidocaine 5 % topical patch 1 patch topical DAILY 02/05/23 02/05/23 Unknown History loratadine 10 mg tablet 10 mg PO DAILY PRN Allergy Symptoms 02/05/23 02/05/23 Unknown History melatonin 5 mg tablet 5 mg PO BEDTIME 02/05/23 02/05/23 Unknown History multivitamin with minerals-ferrous 1 tab PO DAILY 02/05/23 02/05/23 Unknown History sulfate 4.5 mg iron tablet (One Daily Multivitamins with Minerals) naltrexone 50 mg tablet 50 mg PO DAILY 02/05/23 02/05/23 Unknown History naltrexone microspheres 380 mg 380 mg IM Q4W 02/05/23 02/05/23 Unknown History intramuscular suspension,extended release (Vivitrol) propranolol 10 mg tablet 10 mg PO TID 02/05/23 02/05/23 Unknown History sertraline 50 mg tablet 50 mg PO DAILY 02/05/23 02/05/23 Unknown History Exam Exam Date and Time: February 06, 2023 180 Height,Weight and Vital Signs: Height 5 ft 1 in Weight 81.647 kg Last Vital Signs Temp 98.2 F 02/06/23 15:18 Pulse 98 02/06/23 15:18 Resp 18 02/06/23 15:18 BP 120/68 02/06/23 15:18 Pulse Ox 93 02/06/23 15:18 O2 Del Method Nasal Cannula 02/06/23 15:18 O2 Flow Rate 2.0 02/06/23 15:18 Pertinent Lab Results Pertinent Lab Results: Laboratory Tests 02/05/23 02/05/23 02/05/23 16:48 16:48 16:48 WBC 4.5 L RBC 4.13 L Hgb 12.5 Hct 37.0 MCV 89.6 MCH 30.3 MCHC 33.8 RDW 14.3 Plt Count 151 L D MPV 9.9 Immature Gran % (Auto) 0.9 H Neut % (Auto) 90.6 H Lymph % (Auto) 7.9 L [place] % (Auto) 0.4 L Eos % (Auto) 0.0 Baso % (Auto) 0.2 Lymph # (Auto) 0.4 L [place] # (Auto) 0.0 L Eos # (Auto) 0.0 Baso # (Auto) 0.0 Abs Immat Gran (auto) 0.04 H Absolute Neuts (auto) 4.1 Absolute Nucleated RBC 0.000 Nucleated RBC % (auto) 0.0 Smear Tech's Comments VERIFIED PT 10.7 INR 0.9 APTT 24.2 L D Sodium 136 Potassium 2.7 L D Chloride 94 L Carbon Dioxide 25 Anion Gap 20 BUN 22 H Creatinine 1.15 Estim Creat Clear Calc 51.0 Estimated GFR 48 Random Glucose 151 H Lactic Acid Calcium 9.9 D Magnesium 1.6 Total Bilirubin 2.3 H Direct Bilirubin 0.7 H AST 39 H ALT 21 Alkaline Phosphatase 104 Troponin I High Sens Total Protein 7.9 Albumin 4.1 Lipase 38 Urine Color Urine Appearance Urine pH Ur Specific [place] Urine Protein Urine Glucose (UA) Urine Ketones Urine Blood Urine Nitrite Ur Leukocyte Esterase Urine RBC Urine WBC Ur Squamous Epith Cells Urine Bacteria Hyaline Casts Urine Opiates Screen Urine Fentanyl Screen Ur Barbiturates Screen Ur Phencyclidine Scrn Ur Amphetamines Screen U Benzodiazepines Scrn Urine Cocaine Screen U Marijuana (THC) Screen Ethyl Alcohol 02/05/23 02/05/23 02/05/23 16:48 16:48 16:48 WBC RBC Hgb Hct MCV MCH MCHC RDW Plt Count MPV Immature Gran % (Auto) Neut % (Auto) Lymph % (Auto) [place] % (Auto) Eos % (Auto) Baso % (Auto) Lymph # (Auto) [place] # (Auto) Eos # (Auto) Baso # (Auto) Abs Immat Gran (auto) Absolute Neuts (auto) Absolute Nucleated RBC Nucleated RBC % (auto) Smear Tech's Comments PT INR APTT Sodium Potassium Chloride Carbon Dioxide Anion Gap BUN Creatinine Estim Creat Clear Calc Estimated GFR Random Glucose Lactic Acid 3.9 H* Calcium Magnesium Total Bilirubin Direct Bilirubin AST ALT Alkaline Phosphatase Troponin I High Sens 19.1 H Total Protein Albumin Lipase Urine Color Urine Appearance Urine pH Ur Specific [place] Urine Protein Urine Glucose (UA) Urine Ketones Urine Blood Urine Nitrite Ur Leukocyte Esterase Urine RBC Urine WBC Ur Squamous Epith Cells Urine Bacteria Hyaline Casts Urine Opiates Screen Urine Fentanyl Screen Ur Barbiturates Screen Ur Phencyclidine Scrn Ur Amphetamines Screen U Benzodiazepines Scrn Urine Cocaine Screen U Marijuana (THC) Screen Ethyl Alcohol < 10 02/05/23 02/05/23 02/05/23 19:38 19:38 22:58 WBC RBC Hgb Hct MCV MCH MCHC RDW Plt Count MPV Immature Gran % (Auto) Neut % (Auto) Lymph % (Auto) [place] % (Auto) Eos % (Auto) Baso % (Auto) Lymph # (Auto) [place] # (Auto) Eos # (Auto) Baso # (Auto) Abs Immat Gran (auto) Absolute Neuts (auto) Absolute Nucleated RBC Nucleated RBC % (auto) Smear Tech's Comments PT INR APTT Sodium Potassium Chloride Carbon Dioxide Anion Gap BUN Creatinine Estim Creat Clear Calc Estimated GFR Random Glucose Lactic Acid Calcium Magnesium Total Bilirubin Direct Bilirubin AST ALT Alkaline Phosphatase Troponin I High Sens 13.3 Total Protein Albumin Lipase Urine Color [place] Urine Appearance Clear Urine pH 5.0 Ur Specific [place] 1.015 Urine Protein 100 (2+) H Urine Glucose (UA) 100 H Urine Ketones 15 Urine Blood Small (1+) H Urine Nitrite Positive H Ur Leukocyte Esterase Moderate (2+) H Urine RBC 11-20 H Urine WBC >50 H Ur Squamous Epith Cells >20 Urine Bacteria 1+ Hyaline Casts 0-2 Urine Opiates Screen Not Detected Urine Fentanyl Screen Not Detected Ur Barbiturates Screen Not Detected Ur Phencyclidine Scrn Not Detected Ur Amphetamines Screen Not Detected U Benzodiazepines Scrn Not Detected Urine Cocaine Screen Not Detected U Marijuana (THC) Screen Not Detected Ethyl Alcohol 02/05/23 02/06/23 02/06/23 22:58 05:51 05:51 WBC 15.7 H RBC 3.56 L Hgb 10.9 L Hct 33.3 L MCV 93.5 MCH 30.6 MCHC 32.7 RDW 15.0 Plt Count 152 L MPV 10.5 Immature Gran % (Auto) Neut % (Auto) Lymph % (Auto) [place] % (Auto) Eos % (Auto) Baso % (Auto) Lymph # (Auto) [place] # (Auto) Eos # (Auto) Baso # (Auto) Abs Immat Gran (auto) Absolute Neuts (auto) Absolute Nucleated RBC 0.000 Nucleated RBC % (auto) 0.0 Smear Tech's Comments PT INR APTT Sodium 138 Potassium 3.9 D Chloride 102 Carbon Dioxide 27 Anion Gap 13 BUN 17 H Creatinine 0.83 Estim Creat Clear Calc 70.6 Estimated GFR > 60 Random Glucose 102 Lactic Acid 2.0 Calcium 8.8 D Magnesium 2.0 Total Bilirubin Direct Bilirubin AST ALT Alkaline Phosphatase Troponin I High Sens Total Protein Albumin Lipase Urine Color Urine Appearance Urine pH Ur Specific [place] Urine Protein Urine Glucose (UA) Urine Ketones Urine Blood Urine Nitrite Ur Leukocyte Esterase Urine RBC Urine WBC Ur Squamous Epith Cells Urine Bacteria Hyaline Casts Urine Opiates Screen Urine Fentanyl Screen Ur Barbiturates Screen Ur Phencyclidine Scrn Ur Amphetamines Screen U Benzodiazepines Scrn Urine Cocaine Screen U Marijuana (THC) Screen Ethyl Alcohol Airway Heart: RRR Lungs: CTA Assessment and Plan Final Anesthetic Review ASA Class: III and Emergency Final Preanesthetic Review: Meds/Allgs Chart Reviewed, Consent Obtained/Reviewed and Anes Risks/Benef Reviewed Patient Risk: Intermediate Procedure Risk: Low Anesthetic Plan Anesthetic Plan: GA Disposition: Standard PACU
--- NOTE | 2023-02-06 19:09 | P.OP_ITS ---
Operative Note Operative Note Date of Service: 02/06/23 Narrative: PreOperative Diagnosis: right distal ureteric stone with hydronephrosis Post Operative Diagnosis: right distal ureteric stone with hydronephrosis Procedure: 1 cystoscopy with right retrograde 2. Right ureteroscopy 3. Stent placement Surgeon: Dr Kane Gan Anesthesia: general Indications for procedure: impacted distal right ureteric stone with hydronephrosis Procedure: After informed consent was verified the patient was brought to the operating room and placed in a supine position. Anesthesia was administered per protocol. The patient was placed in modified dorsal lithotomy position and prepped and draped in a sterile fashion. A safety pause time-out was performed. Laterality of procedure and antibiotics were confirmed, appropriate imaging was available A 22 [place] cystoscope was introduced per urethra. No abnormality was noted of urethra or bladder. Both ureteric orifices were seen in a normal position. The right ureter was cannulated with an open ended catheter and a retrograde examination was performed. difficult to obtain access to right ureter. Filling defect in distal portion. Proximal hydronephrosis. Was unable to place wire passed stones. Rigid ureteroscopy performed in order to visualize the impacted stones. Sensor guidewire within able to be passed up around the stone. . A Sensor guidewire was placed under fluoroscopy and a good coil was seen within the renal pelvis. A Six [place] by 24 cm double J stent was advanced over the wire and up to the level of the renal pelvis under fluoroscopic and direct visualization. The stent was seen with appropriate coil within the renal pelvis and in the bladder after deployment. The patient tolerated the procedure well and was transferred in a stable condition to the recovery area. Pathology: Drains: as above
[2023-02-06] MEDS: Acetaminophen 1,000 MG/100 ML PIGGYBACK 400 MG IV (19:19)
[2023-02-06] MEDS: Phenazopyridine HCL 100 MG TABLET PO (19:22)
[2023-02-06] MEDS: Ketorolac Tromethamine 15 MG/ML VIAL IVPUSH (19:30)
--- NOTE | 2023-02-06 20:01 | PC.NURSE ---
lab called with critical repeat blood cultures gram negative rods notified.Pt on iv rocephin no new orders at this time.
[2023-02-06] MEDS: cefTRIAXone sodium 1 GM in 0.9 % Sodium Chloride 50 ML IV (20:24)
[2023-02-06] MEDS: QUEtiapine Fumarate 50 MG TABLET 150 MG PO (20:29)
[2023-02-06] MEDS: Melatonin 3 MG TABLET 6 MG PO (20:30)
[2023-02-06] MEDS: Gabapentin 600 MG TABLET PO (20:30)
[2023-02-07] MEDS: valACYclovir HCL 1,000 MG TABLET 1000 MG PO ×3 (02:55→17:31)
[2023-02-07 03:06] VITALS: BP 144/69; PULSE 67; RESP 16; TEMP 36; O2SAT 94
[2023-02-07] MEDS: Lactated Ringers 1,000 ML 100 ML IVCONT (05:52)
[2023-02-07 07:23] VITALS: BP 150/75; PULSE 67; RESP 17; TEMP 36.1; O2SAT 93
[2023-02-07] MEDS: Propranolol HCL 10 MG TABLET PO ×3 (07:33→21:45)
[2023-02-07] MEDS: Naltrexone HCl 50 MG TABLET PO (07:33)
[2023-02-07] MEDS: Multivitamin TABLET 1 TAB PO (07:33)
[2023-02-07] MEDS: Famotidine 20 MG TABLET PO ×2 (07:33→21:44)
[2023-02-07] MEDS: Sertraline HCL 50 MG TABLET PO (07:33)
[2023-02-07] MEDS: Folic Acid 1 MG TABLET PO (07:33)
[2023-02-07] MEDS: PHENobarbitaL 30 MG TABLET PO ×2 (07:34→21:44)
[2023-02-07] MEDS: Thiamine HCL 100 MG TABLET PO (07:34)
[2023-02-07] MEDS: Lidocaine 4 % Patch ADH..PATCH 1 PATCH TRANSDERMA (07:34)
[2023-02-07] MEDS: cefTRIAXone sodium 2 GM in 0.9 % Sodium Chloride 50 ML IV (08:59)
[2023-02-07] MEDS: Ertapenem Sodium 1 GM in 0.9 % Sodium Chloride 50 ML IV (09:00)
--- NOTE | 2023-02-07 12:03 | HO.PM.IMPN ---
Subjective Subjective Date of Service: 02/07/23 Interval History: feeling better complaining of lower abdominal discomfort continued to have persistent left upper back pain from prior shingles and right buttock pain at site of rash, complaining of urinary burning, no fevers no chills no nausea no vomiting tolerating diet denies shakiness or tremors. Review of Systems all other system reviewed and negative. Constitutional General? awake alert x3, resting comfortably in no acute distress.? anicteric sclera Neck supple,no JVD. CVS? regular rate rhythm, Respiratory lungs clear to auscultation, no respiratory distress, no wheeze, no rhonchi. Gastrointestinal abdomen soft, mild mid lower abdominal discomfort with palpation, bowel sounds audible, no guarding , no rigidity. no CVA tenderness Extremities no? edema. Neuro nonfocal , moving all 4 extremity , no tremors,speech clear. Skin? papular rash localized to right buttock not crossing midline, no new lesions Physical Exam Vital Signs: Vital Signs: Last Vital Signs Temp 97.0 F 02/07/23 07:23 Pulse 67 02/07/23 07:23 Resp 17 02/07/23 07:23 BP 150/75 H 02/07/23 07:23 Pulse Ox 93 02/07/23 07:23 O2 Del Method Room Air 02/07/23 07:23 O2 Flow Rate 2 02/06/23 19:24 BMI result Body Mass Index 34.0 Objective Data Active Medications Acetaminophen (Acetaminophen 325 Mg Tablet) 650 mg PO Q6H PRN PRN Reason: Pain, Mild (Pain Scale 1-3) Clonidine HCl (Clonidine Hcl 0.1 Mg Tablet) 0.1 mg PO BID PRN; Protocol PRN Reason: Anxiety Docusate Sodium (Docusate Sodium 100 Mg Capsule) 100 mg PO DAILY PRN PRN Reason: Constipation Famotidine (Famotidine 20 Mg Tablet) 20 mg PO BID [facility] Last Admin: 02/07/23 07:33 Dose: 20 mg Documented By: DEAN Fluticasone Propionate (Fluticasone Propionate Nasal 16 Gm [place]) 1 spray NOSTRIL-B DAILY [facility] Last Admin: 02/07/23 07:35 Dose: Not Given Documented By: DEAN Non-Admin Reason: Patient Refused Folic Acid (Folic Acid 1 Mg Tablet) 1 mg PO DAILY [facility] Stop: 02/09/23 08:59 Last Admin: 02/07/23 07:33 Dose: 1 mg Documented By: DEAN Gabapentin (Gabapentin 600 Mg Tablet) 600 mg PO BEDTIME [facility] Last Admin: 02/06/23 20:30 Dose: 600 mg Documented By: KATHERINE Hydroxyzine HCl (Hydroxyzine Hcl 25 Mg Tablet) 25 mg PO TID PRN PRN Reason: Anxiety Lactated Ringer's (Lr) 1,000 mls @ 100 mls/hr IVCONT .Q10H [facility] Last Infusion: 02/07/23 11:04 Dose: 100 mls/hr Documented By: DEAN Ceftriaxone Sodium 2 gm/ (Sodium Chloride) 50 mls @ 100 mls/hr IV Q24H [facility] Last Infusion: 02/07/23 09:52 Dose: 0 mls/hr Documented By: DEAN Ketorolac Tromethamine (Ketorolac Tromethamine 15 Mg/Ml Vial) 15 mg IVPUSH Q6H PRN PRN Reason: Pain, Moderate(Pain Scale 4-6) Last Admin: 02/06/23 19:30 Dose: 15 mg Documented By: DANGELSidney Lidocaine (Lidocaine 4 % Patch Adh..Patch) 1 patch TRANSDERMA DAILY [facility] Last Admin: 02/07/23 07:34 Dose: 1 patch Documented By: DEAN Loratadine (Loratadine 10 Mg Tablet) 10 mg PO DAILY PRN PRN Reason: Allergy Symptoms Melatonin (Melatonin 3 Mg Tablet) 6 mg PO BEDTIME [facility] Last Admin: 02/06/23 20:30 Dose: 6 mg Documented By: KATHERINE Morphine Sulfate (Morphine Sulfate 4 Mg/Ml Cartridge) 4 mg IVPUSH Q4H PRN; Protocol PRN Reason: Pain, Severe (Pain Scale 7-10) Multivitamins/Vitamin C (Multivitamin Tablet) 1 tab PO DAILY [facility] Stop: 02/09/23 08:59 Last Admin: 02/07/23 07:33 Dose: 1 tab Documented By: DEAN Naltrexone HCl (Naltrexone Hcl 50 Mg Tablet) 50 mg PO DAILY [facility] Last Admin: 02/07/23 07:33 Dose: 50 mg Documented By: DEAN Ondansetron HCl (Ondansetron Hcl 4 Mg/2 Ml Vial) 4 mg IVPUSH Q8H PRN PRN Reason: Nausea and Vomiting Ondansetron HCl (Ondansetron Hcl 4 Mg/2 Ml Vial) 4 mg IVPUSH ONCE PRN PRN Reason: Nausea and Vomiting Pharmacy Consult (Consult Rx Etoh Phenob Im/Po) 0 each MISCELLANE ONCE PRN; Protocol PRN Reason: Consult order Pharmacy Consult (Consult Rx Perform Med Rec) 1 each MISCELLANE ONCE PRN PRN Reason: Consult order Phenobarbital (Phenobarbital 30 Mg Tablet) 30 mg PO BID [facility] Stop: 02/07/23 21:01 Last Admin: 02/07/23 07:34 Dose: 30 mg Documented By: DEAN Phenobarbital (Phenobarbital 15 Mg Tablet) 15 mg PO BID [facility] Stop: 02/09/23 21:01 Phenobarbital (Phenobarbital 15 Mg Tablet) 15 mg PO DAILY [facility] Stop: 02/11/23 09:01 Propranolol HCl (Propranolol Hcl 10 Mg Tablet) 10 mg PO TID [facility]; Protocol Last Admin: 02/07/23 07:33 Dose: 10 mg Documented By: DEAN Quetiapine Fumarate (Quetiapine Fumarate 50 Mg Tablet) 150 mg PO BEDTIME [facility] Last Admin: 02/06/23 20:29 Dose: 150 mg Documented By: KATHERINE Sertraline HCl (Sertraline Hcl 50 Mg Tablet) 50 mg PO DAILY [facility] Last Admin: 02/07/23 07:33 Dose: 50 mg Documented By: DEAN Sodium Chloride (0.9 % Sodium Chloride Flush 3 Ml Syringe) 3 ml IVFLUSH QSHIFT [facility] Last Admin: 02/07/23 07:16 Dose: Not Given Documented By: DEAN Non-Admin Reason: IV Running Thiamine HCl (Thiamine Hcl 100 Mg Tablet) 100 mg PO DAILY [facility] Stop: 02/09/23 08:59 Last Admin: 02/07/23 07:34 Dose: 100 mg Documented By: DEAN Valacyclovir HCl (Valacyclovir Hcl 1,000 Mg Tablet) 1,000 mg PO Q8H [facility] Last Admin: 02/07/23 11:04 Dose: 1,000 mg Documented By: DEAN Labs 02/06/23 05:51 02/06/23 05:51 Microbiology Microbiology Results: Microbiology 02/06/23 07:42 Blood Culture - Preliminary Blood - Venous Gram negative waylon 02/06/23 07:42 Blood Culture - Preliminary Blood - Venous Gram negative waylon 02/05/23 16:47 Blood Culture - Preliminary Blood - Venous Gram negative waylon 02/05/23 16:47 Blood Culture - Preliminary Blood - Venous Gram negative waylon 02/05/23 19:38 Urine Culture - Final Urine clean catch - Urine trevino top Escherichia coli Assessment and Plan (1) Hydroureteronephrosis: Status: Acute (2) Shingles: Status: Acute (3) Alcohol withdrawal: Status: Acute (4) Acidosis, lactic: Status: Acute (5) Bacteremia: Status: Acute Plan 57-year-old female with a PMH significant for alcohol use disorder with hx of withdrawals,?shingles, and anxiety who presents to the ED with?nausea, vomiting, back pain. CT of abd/pelvis showed two right 8mm obstructing calculi. Pt will be admitted to the hospital for treatment of alcohol withdrawal, UTI, and hydroureteronephrosis with likely surgical procedure tomorrow. Sepsis due to UTI with Hydroureteronephrosis. tachycardia tachypnea and lactic acidosis resolved feeling better, no nausea, no vomiting, no worsening lower back discomfort CT?of abdomen/pelvis showed severe right hydroureteronephrosis with two right 8mm calculi? blood culture grew E coli resistant to ceftriaxone will place on IV ertapenem underwent cystoscopy noted to have impacted right ureteral stone stent placed E coli bacteremia continue IV ertapenem as above Hypokalemia Potassium 2.7 on admission improved to 3.9 with potassium replacement. Lactic acidosis Lactic acid 3.9 at time of presentation, Likely secondary to sepsis resolved with IV fluids Elevated troponins Initial troponin elevated at 19.1m, repeat troponin 13.3, Denies chest pain, EKG negative for ST elevations or depressions Most likely secondary to sepsis, no further cardiac workup initiated. Alcohol withdrawal Patient left treatment program on and has since resumed drinking at about her prior level Continue phenobarb protocol,Daily multivitamin, folic acid, thiamine Follow lytes, Mag, BMP CIWA scale follow Addiction Medicine consult elevated total bili and AST likely due to alcohol use and sepsis will follow LFTs, patient asymptomatic. Herpes zoster likely shingles rash on lower right back Patient with shingles outbreak in September of this year on mid right side Completed one treatment of Shingrex vaccine, recommend second Shingrex shot continue Valacyclovir 1000 mg p.o. Q 8 hours x7 days, started 02/05/2023 contact precautions. Mood disorder Continue home meds Full Code DVT Prophylaxis: Pneumatic boots Pt will require continued hospitalization for treatment of?alcohol withdrawal, Gram-negative waylon bacteremia, on IV antibiotic awaiting expert consult. Time Spent With Patient Time: Total time managing care of this patient today ____ minutes. Quality Stroke Does the patient have a stroke diagnosis?: No VTE Prior VTE?: No VTE Risk Level:: Medical - moderate - high VTE Device Contraindication: N/A - Device Ordered VTE Drug Contraindication: Treatment Not Indicated
--- NOTE | 2023-02-07 13:22 | MHC.RECOVRN ---
Received Addiction Medicine consult, pt familiar with ACS from previous encounters. Pt admitted to [facility] for hydroureteronephrosis, shingles, alcohol withdrawal, acidosis, and bacteremia. Chart reviewed. Per chart, pt had been Sect October-. Pt had been drinking 2 nips x 3 days [employer] and feeling withdrawal upon arrival to ED. Attempted to meet with pt, pt sleeping soundly/snoring, does not wake to voice. Recovery resources left at bedside, will attempt to meet with pt at a later time.
--- NOTE | 2023-02-07 14:42 | MHC.CM.PN ---
Per MD rounds no discharge today. Patient requires IV ABX s/p stent for Renal stone. Pt has an addiction medicine consult. DP home with community resources provided by the cottage master. Patient may need assist with transport.
[2023-02-07 14:44] VITALS: BP 126/61
[2023-02-07] MEDS: Ketorolac Tromethamine 15 MG/ML VIAL IVPUSH (14:53)
[2023-02-07 15:37] VITALS: BP 99/57; PULSE 73; RESP 15; TEMP 36.8; O2SAT 95
--- NOTE | 2023-02-07 15:52 | W.PM.IDCN ---
History of Present Illness Data of Consult Service Date: 02/07/23 Requesting physician: Rodrick Finney Primary Care Provider: TIMBO Zendejas Reason for consult: bacteremia She presents with dysuria for three days. CT right hydroureteronephrosis and blood and urine culture E coli. She has had ESBL in past. Review of Systems Review of Systems: Yes all other systems are reviewed and are negative [facility] Past Medical History Medical History (Updated 02/07/23 @ 15:55 by Kathryn Le MD) Depression ETOH abuse Mood disorder as late effect of traumatic brain injury Rash TBI (traumatic brain injury) Family History Family history: reviewed and not pertinent Social History Social History Household Members: Unknown / Unable to assess Household Members Other:: Reports has been [employer] surfing. Housing: Apartment Unable to assess alcohol history related to: Unknown Alcohol intake: current Alcohol intake frequency: a few times a week Alcohol type: hard liquor Patient Tobacco Use Status: Never used Tobacco Smoked in Last 30 Days: No e-Cigarette/Vaping Use: Never Used Second Hand Smoke Exposure: No Use of substances other than those prescribed or required for medical reasons: No Substance Use Type: Caffiene Currently Displaying Signs/Symptoms of Drug Intoxication Withdrawal: No Any prior treatment program specific to substance use: No Advance Directives: Yes Advance Directives on File: Yes Advance Directives Date on File: 05/06/21 Do you have thoughts of harming others: None Do you have a plan to hurt others: No Plan Recently lost weight without trying: No Patient : No : No Poor oral hygiene: No service: No Current occupational status: disabled Sexual orientation: Straight/Heterosexual Meds Allergies Allergy/AdvReac Type Severity Reaction Status Date / Time No Known Allergies Allergy Verified 01/30/23 22:14 [No Known Allergies*] Active Medications: Current Medications Acetaminophen (Acetaminophen 325 Mg Tablet) 650 mg PO Q6H PRN PRN Reason: Pain, Mild (Pain Scale 1-3) Clonidine HCl (Clonidine Hcl 0.1 Mg Tablet) 0.1 mg PO BID PRN; Protocol PRN Reason: Anxiety Docusate Sodium (Docusate Sodium 100 Mg Capsule) 100 mg PO DAILY PRN PRN Reason: Constipation Famotidine (Famotidine 20 Mg Tablet) 20 mg PO BID [facility] Last Admin: 02/07/23 07:33 Dose: 20 mg Fluticasone Propionate (Fluticasone Propionate Nasal 16 Gm [place]) 1 spray NOSTRIL-B DAILY [facility] Last Admin: 02/07/23 07:35 Dose: Not Given Folic Acid (Folic Acid 1 Mg Tablet) 1 mg PO DAILY [facility] Stop: 02/09/23 08:59 Last Admin: 02/07/23 07:33 Dose: 1 mg Gabapentin (Gabapentin 600 Mg Tablet) 600 mg PO BEDTIME [facility] Last Admin: 02/06/23 20:30 Dose: 600 mg Hydroxyzine HCl (Hydroxyzine Hcl 25 Mg Tablet) 25 mg PO TID PRN PRN Reason: Anxiety Lactated Ringer's (Lr) 1,000 mls @ 100 mls/hr IVCONT .Q10H [facility] Last Admin: 02/07/23 13:28 Dose: Not Given Ketorolac Tromethamine (Ketorolac Tromethamine 15 Mg/Ml Vial) 15 mg IVPUSH Q6H PRN PRN Reason: Pain, Moderate(Pain Scale 4-6) Last Admin: 02/07/23 14:53 Dose: 15 mg Lidocaine (Lidocaine 4 % Patch Adh..Patch) 1 patch TRANSDERMA DAILY [facility] Last Admin: 02/07/23 07:34 Dose: 1 patch Loratadine (Loratadine 10 Mg Tablet) 10 mg PO DAILY PRN PRN Reason: Allergy Symptoms Melatonin (Melatonin 3 Mg Tablet) 6 mg PO BEDTIME [facility] Last Admin: 02/06/23 20:30 Dose: 6 mg Morphine Sulfate (Morphine Sulfate 4 Mg/Ml Cartridge) 4 mg IVPUSH Q4H PRN; Protocol PRN Reason: Pain, Severe (Pain Scale 7-10) Multivitamins/Vitamin C (Multivitamin Tablet) 1 tab PO DAILY [facility] Stop: 02/09/23 08:59 Last Admin: 02/07/23 07:33 Dose: 1 tab Naltrexone HCl (Naltrexone Hcl 50 Mg Tablet) 50 mg PO DAILY [facility] Last Admin: 02/07/23 07:33 Dose: 50 mg Ondansetron HCl (Ondansetron Hcl 4 Mg/2 Ml Vial) 4 mg IVPUSH Q8H PRN PRN Reason: Nausea and Vomiting Ondansetron HCl (Ondansetron Hcl 4 Mg/2 Ml Vial) 4 mg IVPUSH ONCE PRN PRN Reason: Nausea and Vomiting Pharmacy Consult (Consult Rx Etoh Phenob Im/Po) 0 each MISCELLANE ONCE PRN; Protocol PRN Reason: Consult order Pharmacy Consult (Consult Rx Perform Med Rec) 1 each MISCELLANE ONCE PRN PRN Reason: Consult order Phenobarbital (Phenobarbital 30 Mg Tablet) 30 mg PO BID [facility] Stop: 02/07/23 21:01 Last Admin: 02/07/23 07:34 Dose: 30 mg Phenobarbital (Phenobarbital 15 Mg Tablet) 15 mg PO BID [facility] Stop: 02/09/23 21:01 Phenobarbital (Phenobarbital 15 Mg Tablet) 15 mg PO DAILY [facility] Stop: 02/11/23 09:01 Propranolol HCl (Propranolol Hcl 10 Mg Tablet) 10 mg PO TID [facility]; Protocol Last Admin: 02/07/23 14:45 Dose: 10 mg Quetiapine Fumarate (Quetiapine Fumarate 50 Mg Tablet) 150 mg PO BEDTIME [facility] Last Admin: 02/06/23 20:29 Dose: 150 mg Sertraline HCl (Sertraline Hcl 50 Mg Tablet) 50 mg PO DAILY [facility] Last Admin: 02/07/23 07:33 Dose: 50 mg Sodium Chloride (0.9 % Sodium Chloride Flush 3 Ml Syringe) [facility] Last Admin: 02/07/23 14:31 Dose: Not Given Thiamine HCl (Thiamine Hcl 100 Mg Tablet) 100 mg PO DAILY [facility] Stop: 02/09/23 08:59 Last Admin: 02/07/23 07:34 Dose: 100 mg Home Medications Medication Instructions Recorded Confirmed Last Taken Type quetiapine 50 mg tablet 150 mg PO BEDTIME 10/30/22 02/05/23 Unknown History acetaminophen 325 mg tablet 650 mg PO Q6H PRN FEVER/PAIN 02/05/23 02/05/23 Unknown History clonidine HCl 0.1 mg tablet 0.1 mg PO BID PRN Anxiety 02/05/23 02/05/23 Unknown History fluticasone propionate 50 1 spray intranasal DAILY 02/05/23 02/05/23 Unknown History mcg/actuation nasal spray,suspension gabapentin 600 mg tablet 600 mg PO BEDTIME 02/05/23 02/05/23 Unknown History hydroxyzine HCl 25 mg tablet 25 mg PO TID PRN Anxiety 02/05/23 02/05/23 Unknown History lidocaine 5 % topical patch 1 patch topical DAILY 02/05/23 02/05/23 Unknown History loratadine 10 mg tablet 10 mg PO DAILY PRN Allergy Symptoms 02/05/23 02/05/23 Unknown History melatonin 5 mg tablet 5 mg PO BEDTIME 02/05/23 02/05/23 Unknown History multivitamin with minerals-ferrous 1 tab PO DAILY 02/05/23 02/05/23 Unknown History sulfate 4.5 mg iron tablet (One Daily Multivitamins with Minerals) naltrexone 50 mg tablet 50 mg PO DAILY 02/05/23 02/05/23 Unknown History naltrexone microspheres 380 mg 380 mg IM Q4W 02/05/23 02/05/23 Unknown History intramuscular suspension,extended release (Vivitrol) propranolol 10 mg tablet 10 mg PO TID 02/05/23 02/05/23 Unknown History sertraline 50 mg tablet 50 mg PO DAILY 02/05/23 02/05/23 Unknown History Physical Exam Vital Signs: Vital Signs: Last Vital Signs Temp 98.2 F 02/07/23 15:37 Pulse 73 02/07/23 15:37 Resp 15 02/07/23 15:37 BP 99/57 L 02/07/23 15:37 Pulse Ox 95 02/07/23 15:37 O2 Del Method Room Air 02/07/23 15:37 O2 Flow Rate 2 02/06/23 19:24 BMI result Body Mass Index 34.0 Back/Spine/Pelvis: Other: right buttock tiny macuopapular lesions Results Labs 02/06/23 05:51 02/06/23 05:51 Microbiology Microbiology Results: Microbiology 02/06/23 07:42 Blood - Venous Blood Culture - Preliminary Gram negative waylon 02/06/23 07:42 Blood - Venous Blood Culture - Preliminary Gram negative waylon 02/05/23 16:47 Blood - Venous Blood Culture - Preliminary Gram negative waylon 02/05/23 16:47 Blood - Venous Blood Culture - Preliminary Gram negative waylon 02/05/23 19:38 Urine clean catch - Urine trevino top Urine Culture - Final Escherichia coli Assessment and Plan (1) Bacteremia: Status: Acute She has E coli bacteremia There is pending cultures. Merem and then po Bactrim likely 14 d total. Follow Urology (2) Hydroureteronephrosis: Status: Acute (3) Rash: Status: Acute this looks like HSV or insect bites Plan Calamine lotion if itchy Time Spent With Patient Time: Total time managing care of this patient today ____ minutes.
[2023-02-07] MEDS: hydrOXYzine HCL 25 MG TABLET PO (17:33)
[2023-02-07] MEDS: Gabapentin 600 MG TABLET PO (21:44)
[2023-02-07] MEDS: Melatonin 3 MG TABLET 6 MG PO (21:44)
[2023-02-07] MEDS: QUEtiapine Fumarate 50 MG TABLET 150 MG PO (21:45)
[2023-02-07] MEDS: Calamine/Zinc Oxide LOTION 177 ML BOTTLE 1 APPL TOPICAL (21:46)
[2023-02-07] MEDS: 0.9 % Sodium Chloride Flush 3 ML SYRINGE IVFLUSH (22:03)
[2023-02-07] MEDS: Morphine Sulfate 4 MG/ML CARTRIDGE IVPUSH (22:11)
[2023-02-08 01:03] VITALS: BP 119/63; RESP 16; TEMP 36.6; O2SAT 94
[2023-02-08] MEDS: valACYclovir HCL 1,000 MG TABLET 1000 MG PO ×3 (01:06→15:57)
[2023-02-08 03:24] VITALS: BP 124/68; PULSE 79; RESP 14; TEMP 36.8; O2SAT 93
[2023-02-08 05:48] LABS: Hematocrit 29.6 % (37.0-47.0); Hemoglobin 9.8 g/dl (12.0-16.0); Mean Corpuscular HGB Conc 33.1 g/dl (31.0-35.0); Mean Corpuscular Hemoglobin 31.2 pg (27.0-33.0); Mean Corpuscular Volume 94.3 fL (80.0-98.0); Mean Platelet Volume 10.3 fL (9.4-12.3); Platelet Count 184 X10*3/uL (160-400); Red Blood Count 3.14 X10*6/uL (4.20-5.50); Red Cell Distribution Width 15.1 % (11.0-16.0); White Blood Count 13.4 X10*3/uL (4.8-10.8)
[2023-02-08 06:03] LABS: Alanine Aminotransferase 35 U/L (0-31); Alkaline Phosphatase 62 U/L (39-117); Anion Gap 11 (12-20); Aspartate Amino Transferase 27 U/L (5-31); Bilirubin Direct 0.2 mg/dL (0.0-0.5); Bilirubin Total 0.4 mg/dL (0.0-1.0); Blood Urea Nitrogen 16 mg/dL (9-16); Calcium 9.2 mg/dL (8.4-10.2); Carbon Dioxide 27 mmol/L (22-29); Chloride 105 mmol/L (96-108); Creatinine Clr Calc Pharmacy 78.2; Estimated Glomerular Filt Rate > 60; Glucose Random 122 mg/dL (60-115); Potassium 3.7 mmol/L (3.3-5.1); Sodium 139 mmol/L (135-145); Total Protein 6.1 g/dL (6.5-8.0)
[2023-02-08 07:29] VITALS: BP 134/69; PULSE 70; RESP 16; TEMP 36.1; O2SAT 94
[2023-02-08] MEDS: PHENobarbitaL 15 MG TABLET PO ×2 (08:43→20:33)
[2023-02-08] MEDS: hydrOXYzine HCL 25 MG TABLET PO (08:44)
[2023-02-08] MEDS: Propranolol HCL 10 MG TABLET PO ×3 (08:44→20:32)
[2023-02-08] MEDS: Thiamine HCL 100 MG TABLET PO (08:44)
[2023-02-08] MEDS: Sertraline HCL 50 MG TABLET PO (08:44)
[2023-02-08] MEDS: Famotidine 20 MG TABLET PO ×2 (08:44→20:31)
[2023-02-08] MEDS: Morphine Sulfate 4 MG/ML CARTRIDGE IVPUSH (08:44)
[2023-02-08] MEDS: Multivitamin TABLET 1 TAB PO (08:44)
[2023-02-08] MEDS: Folic Acid 1 MG TABLET PO (08:44)
[2023-02-08] MEDS: Naltrexone HCl 50 MG TABLET PO (08:44)
[2023-02-08] MEDS: 0.9 % Sodium Chloride Flush 3 ML SYRINGE IVFLUSH ×3 (08:45→20:33)
[2023-02-08] MEDS: Lidocaine 4 % Patch ADH..PATCH 1 PATCH TRANSDERMA (08:45)
--- NOTE | 2023-02-08 08:59 | PM.EVENT ---
Event Note Date of Service: 02/08/23 Event Note: Addiction consult placed Patient seen by ballistic technician, please see note from 02/07 Time Spent With Patient Time: Total time managing care of this patient today ____ minutes.
[2023-02-08] MEDS: Acetaminophen 325 MG TABLET 650 MG PO (12:59)
--- NOTE | 2023-02-08 14:05 | HO.PM.IMPN ---
Subjective Subjective Date of Service: 02/08/23 Interval History: complaining of lower back pain at site of rash, complaining of dark color urine, denies fever chills no shakiness, ambulating noted to have unsteady gait, denies nausea vomiting, no abdominal pain, tolerating diet, continue to have some discomfort with urination, no burning. Review of Systems All other system reviewed and negative Physical Exam Vital Signs: Vital Signs: Last Vital Signs Temp 97.0 F 02/08/23 07:29 Pulse 70 02/08/23 07:29 Resp 16 02/08/23 07:29 BP 134/69 02/08/23 07:29 Pulse Ox 94 02/08/23 07:29 O2 Del Method Room Air 02/08/23 07:29 O2 Flow Rate 2 02/06/23 19:24 BMI result Body Mass Index 34.0 Const: Other: General? awake alert x3, resting comfortably in no acute distress.? anicteric sclera Neck supple,no JVD. CVS? regular rate rhythm, Respiratory lungs clear to auscultation, no respiratory distress, no wheeze, no rhonchi. Gastrointestinal abdomen soft,?bowel sounds audible, no guarding , no rigidity. no CVA tenderness Extremities no edema. Neuro nonfocal , moving all 4 extremity , no tremors,speech clear. Skin? papular rash localized to right buttock not crossing midline, no new lesions, no vesicles, no surrounding redness, no tenderness to palpation Objective Data Active Medications Acetaminophen (Acetaminophen 325 Mg Tablet) 650 mg PO Q6H PRN PRN Reason: Pain, Mild (Pain Scale 1-3) Last Admin: 02/08/23 12:59 Dose: 650 mg Documented By: BELEN Calamine (Calamine/Zinc Oxide Lotion 177 Ml Bottle) 1 appl TOPICAL QID PRN; Protocol PRN Reason: Rash Last Admin: 02/07/23 21:46 Dose: 1 appl Documented By: IGNACIO Clonidine HCl (Clonidine Hcl 0.1 Mg Tablet) 0.1 mg PO BID PRN; Protocol PRN Reason: Anxiety Docusate Sodium (Docusate Sodium 100 Mg Capsule) 100 mg PO DAILY PRN PRN Reason: Constipation Famotidine (Famotidine 20 Mg Tablet) 20 mg PO BID [facility] Last Admin: 02/08/23 08:44 Dose: 20 mg Documented By: BELEN Fluticasone Propionate (Fluticasone Propionate Nasal 16 Gm [place]) 1 spray NOSTRIL-B DAILY [facility] Last Admin: 02/08/23 08:45 Dose: Not Given Documented By: BELEN Non-Admin Reason: Patient Refused Folic Acid (Folic Acid 1 Mg Tablet) 1 mg PO DAILY [facility] Stop: 02/09/23 08:59 Last Admin: 02/08/23 08:44 Dose: 1 mg Documented By: BELEN Gabapentin (Gabapentin 600 Mg Tablet) 600 mg PO BEDTIME [facility] Last Admin: 02/07/23 21:44 Dose: 600 mg Documented By: IGNACIO Hydroxyzine HCl (Hydroxyzine Hcl 25 Mg Tablet) 25 mg PO TID PRN PRN Reason: Anxiety Last Admin: 02/08/23 08:44 Dose: 25 mg Documented By: BELEN Meropenem 1 gm/ Sodium (Chloride) 100 mls @ 200 mls/hr IV Q8H [facility] Last Infusion: 02/08/23 09:43 Dose: 0 mls/hr Documented By: BELEN Ketorolac Tromethamine (Ketorolac Tromethamine 15 Mg/Ml Vial) 15 mg IVPUSH Q6H PRN PRN Reason: Pain, Moderate(Pain Scale 4-6) Last Admin: 02/07/23 14:53 Dose: 15 mg Documented By: DEAN Lidocaine (Lidocaine 4 % Patch Adh..Patch) 1 patch TRANSDERMA DAILY [facility] Last Admin: 02/08/23 08:45 Dose: 1 patch Documented By: BELEN Loratadine (Loratadine 10 Mg Tablet) 10 mg PO DAILY PRN PRN Reason: Allergy Symptoms Melatonin (Melatonin 3 Mg Tablet) 6 mg PO BEDTIME [facility] Last Admin: 02/07/23 21:44 Dose: 6 mg Documented By: IGNACIO Morphine Sulfate (Morphine Sulfate 4 Mg/Ml Cartridge) 4 mg IVPUSH Q4H PRN; Protocol PRN Reason: Pain, Severe (Pain Scale 7-10) Last Admin: 02/08/23 08:44 Dose: 4 mg Documented By: BELEN Multivitamins/Vitamin C (Multivitamin Tablet) 1 tab PO DAILY [facility] Stop: 02/09/23 08:59 Last Admin: 02/08/23 08:44 Dose: 1 tab Documented By: BELEN Naltrexone HCl (Naltrexone Hcl 50 Mg Tablet) 50 mg PO DAILY [facility] Last Admin: 02/08/23 08:44 Dose: 50 mg Documented By: BELEN Ondansetron HCl (Ondansetron Hcl 4 Mg/2 Ml Vial) 4 mg IVPUSH Q8H PRN PRN Reason: Nausea and Vomiting Ondansetron HCl (Ondansetron Hcl 4 Mg/2 Ml Vial) 4 mg IVPUSH ONCE PRN PRN Reason: Nausea and Vomiting Oxycodone HCl (Oxycodone Hcl Immed Release 5 Mg Tablet) 5 mg PO Q6H PRN PRN Reason: Pain, Moderate(Pain Scale 4-6) Pharmacy Consult (Consult Rx Etoh Phenob Im/Po) 0 each MISCELLANE ONCE PRN; Protocol PRN Reason: Consult order Pharmacy Consult (Consult Rx Perform Med Rec) 1 each MISCELLANE ONCE PRN PRN Reason: Consult order Phenobarbital (Phenobarbital 15 Mg Tablet) 15 mg PO BID [facility] Stop: 02/09/23 21:01 Last Admin: 02/08/23 08:43 Dose: 15 mg Documented By: BELEN Phenobarbital (Phenobarbital 15 Mg Tablet) 15 mg PO DAILY [facility] Stop: 02/11/23 09:01 Propranolol HCl (Propranolol Hcl 10 Mg Tablet) 10 mg PO TID [facility]; Protocol Last Admin: 02/08/23 08:44 Dose: 10 mg Documented By: BELEN Quetiapine Fumarate (Quetiapine Fumarate 50 Mg Tablet) 150 mg PO BEDTIME [facility] Last Admin: 02/07/23 21:45 Dose: 150 mg Documented By: IGNACIO Sertraline HCl (Sertraline Hcl 50 Mg Tablet) 50 mg PO DAILY [facility] Last Admin: 02/08/23 08:44 Dose: 50 mg Documented By: BELEN Sodium Chloride (0.9 % Sodium Chloride Flush 3 Ml Syringe) 3 ml IVFLUSH [facility] Last Admin: 02/08/23 08:45 Dose: 3 ml Documented By: BELEN Thiamine HCl (Thiamine Hcl 100 Mg Tablet) 100 mg PO DAILY [facility] Stop: 02/09/23 08:59 Last Admin: 02/08/23 08:44 Dose: 100 mg Documented By: BELEN Valacyclovir HCl (Valacyclovir Hcl 1,000 Mg Tablet) 1,000 mg PO Q8H [facility] Last Admin: 02/08/23 08:44 Dose: 1,000 mg Documented By: BELEN Labs 02/08/23 05:37 02/08/23 05:37 Labs: Laboratory Results - last 24 hr 02/08/23 02/08/23 05:37 05:37 MCV 94.3 MCH 31.2 MCHC 33.1 RDW 15.1 Plt Count 184 MPV 10.3 Absolute Nucleated RBC 0.000 Nucleated RBC % (auto) 0.0 Anion Gap 11 L Estim Creat Clear Calc 78.2 Estimated GFR > 60 Random Glucose 122 H Calcium 9.2 Total Bilirubin 0.4 Direct Bilirubin 0.2 AST 27 ALT 35 H Alkaline Phosphatase 62 Total Protein 6.1 L Albumin 3.0 L Microbiology Microbiology Results: Microbiology 02/06/23 07:42 Blood Culture - Final Blood - Venous Escherichia coli 02/06/23 07:42 Blood Culture - Final Blood - Venous Escherichia coli 02/05/23 16:47 Blood Culture - Final Blood - Venous Escherichia coli 02/05/23 16:47 Blood Culture - Final Blood - Venous Escherichia coli Assessment and Plan (1) Hydroureteronephrosis: Status: Acute (2) Shingles: Status: Acute (3) Alcohol withdrawal: Status: Acute (4) Acidosis, lactic: Status: Acute (5) Bacteremia: Status: Acute Plan 57-year-old female with a PMH significant for alcohol use disorder with hx of withdrawals,?shingles, and anxiety who presents to the ED with?nausea, vomiting, back pain. CT of abd/pelvis showed two right 8mm obstructing calculi. Pt will be admitted to the hospital for treatment of alcohol withdrawal, UTI, and hydroureteronephrosis with likely surgical procedure tomorrow. Sepsis due to UTI with Hydroureteronephrosis. tachycardia tachypnea and lactic acidosis resolved feeling better, no nausea, no vomiting, mild lower back discomfort CT?of abdomen/pelvis showed severe right hydroureteronephrosis with two right 8mm calculi? blood culture grew E coli resistant to ceftriaxone on IV meropenem underwent cystoscopy noted to have impacted right ureteral stone stent placed, case discussed with Dr. Gan he recommend 2 weeks of antibiotics and follow-up with them in 2-3 weeks for possible lithotripsy and removal of stone. E coli bacteremia continue IV meropenem followed by 2 weeks of by mouth Bactrim, WBC trending down clinically stable Hypokalemia Potassium 2.7 on admission improved to 3.9 with potassium replacement. Lactic acidosis Lactic acid 3.9 at time of presentation, Likely secondary to sepsis resolved with IV fluids Elevated troponins Initial troponin elevated at 19.1m, repeat troponin 13.3, Denies chest pain, EKG negative for ST elevations or depressions Most likely secondary to sepsis, no further cardiac workup initiated. Alcohol withdrawal Patient left treatment program on and has since resumed drinking at about her prior level Continue phenobarb protocol,Daily multivitamin, folic acid, thiamine Follow lytes, Mag, BMP CIWA scale Addiction Team visited patient but patient was sleeping they will attempt to see patient again elevated total bili and AST likely due to alcohol use and sepsis will follow LFTs, patient asymptomatic. Herpes zoster likely shingles rash on lower right back Patient with shingles outbreak in September of this year on mid right side Completed one treatment of Shingrex vaccine, recommend second Shingrex shot continue Valacyclovir 1000 mg p.o. Q 8 hours x7 days, started 02/05/2023, calamine lotion contact precautions. Mood disorder Continue home meds Full Code DVT Prophylaxis: Pneumatic boots Pt will require continued hospitalization for treatment of?alcohol withdrawal, Gram-negative waylon bacteremia, on IV antibiotic . Time Spent With Patient Time: Total time managing care of this patient today ____ minutes. Quality Stroke Does the patient have a stroke diagnosis?: No VTE Prior VTE?: No VTE Risk Level:: Medical - moderate - high VTE Device Contraindication: N/A - Device Ordered VTE Drug Contraindication: Treatment Not Indicated
[2023-02-08] MEDS: oxyCODONE HCl Immed Release 5 MG TABLET PO (15:15)
[2023-02-08 15:27] VITALS: BP 131/69; PULSE 81; RESP 18; TEMP 37.3; O2SAT 94
[2023-02-08 19:40] VITALS: BP 133/69; PULSE 84; RESP 18; TEMP 36.5; O2SAT 93
[2023-02-08] MEDS: Melatonin 3 MG TABLET 6 MG PO (20:31)
[2023-02-08] MEDS: Gabapentin 600 MG TABLET PO (20:32)
[2023-02-08] MEDS: QUEtiapine Fumarate 50 MG TABLET 150 MG PO (20:32)
[2023-02-08] MEDS: Ketorolac Tromethamine 15 MG/ML VIAL IVPUSH (20:43)
[2023-02-08] MEDS: Calamine/Zinc Oxide LOTION 177 ML BOTTLE 1 APPL TOPICAL (20:50)
[2023-02-09] VITALS (7 sets, daily range): BP systolic 135–193; BP diastolic 66–83; PULSE 71–88; RESP 18–19; TEMP 36.5–37.9; O2SAT 95–97
[2023-02-09] MEDS: valACYclovir HCL 1,000 MG TABLET 1000 MG PO ×4 (00:22→23:54)
[2023-02-09 06:28] LABS: Hematocrit 32.3 % (37.0-47.0); Hemoglobin 10.5 g/dl (12.0-16.0); Mean Corpuscular HGB Conc 32.5 g/dl (31.0-35.0); Mean Corpuscular Hemoglobin 30.6 pg (27.0-33.0); Mean Corpuscular Volume 94.2 fL (80.0-98.0); Mean Platelet Volume 10.1 fL (9.4-12.3); Platelet Count 208 X10*3/uL (160-400); Red Blood Count 3.43 X10*6/uL (4.20-5.50); White Blood Count 9.2 X10*3/uL (4.8-10.8)
[2023-02-09] MEDS: Acetaminophen 325 MG TABLET 650 MG PO (07:34)
[2023-02-09] MEDS: Lidocaine 4 % Patch ADH..PATCH 1 PATCH TRANSDERMA (07:35)
[2023-02-09] MEDS: Sertraline HCL 50 MG TABLET PO (07:35)
[2023-02-09] MEDS: Naltrexone HCl 50 MG TABLET PO (07:35)
[2023-02-09] MEDS: hydrOXYzine HCL 25 MG TABLET PO ×2 (07:35→15:48)
[2023-02-09] MEDS: PHENobarbitaL 15 MG TABLET PO ×2 (07:35→20:29)
[2023-02-09] MEDS: Propranolol HCL 10 MG TABLET PO ×3 (07:35→20:31)
[2023-02-09] MEDS: Famotidine 20 MG TABLET PO ×2 (07:35→20:28)
[2023-02-09] MEDS: 0.9 % Sodium Chloride Flush 3 ML SYRINGE IVFLUSH ×3 (07:36→23:53)
--- NOTE | 2023-02-09 07:45 | P.PNIM_ITS ---
Subjective Subjective Date of Service: 02/09/23 Interval History: being followed for E coli bacteremia noted to have a temp of 100.2 degrees this morning patient denied fever or chills denies headache lightheadedness, no nausea, no vomiting, no urinary burning or itching but complaining of pressure with urination no hematuria complaining of itching at site of right buttock rash but no pain no other acute issues overnight no worsening tremors or shakiness. Review of Systems All other system reviewed and negative. Physical Exam Vital Signs: Vital Signs: Last Vital Signs Temp 100.2 F 02/09/23 07:17 Pulse 88 02/09/23 07:17 Resp 18 02/09/23 07:17 BP 193/81 H 02/09/23 07:17 Pulse Ox 96 02/09/23 07:17 O2 Del Method Room Air 02/09/23 07:17 O2 Flow Rate 2 02/06/23 19:24 BMI result Body Mass Index 34.0 Const: Other: General? awake alert x3, resting comfortably in no acute distress.? anicteric sclera Neck supple,no JVD. CVS? regular rate rhythm, Respiratory lungs clear to auscultation, no respiratory distress, no wheeze, no rhonchi. Gastrointestinal abdomen soft,?bowel sounds audible, no guarding , no rigidity. no CVA tenderness Extremities no edema. Neuro nonfocal , moving all 4 extremity , no tremors,speech clear. Skin? papular rash localized to right buttock not crossing midline, no new lesions, no vesicles, no surrounding redness, no tenderness to palpation, significant improvement and fading of rash Objective Data Active Medications Acetaminophen (Acetaminophen 325 Mg Tablet) 650 mg PO Q6H PRN PRN Reason: Pain, Mild (Pain Scale 1-3) Last Admin: 02/08/23 12:59 Dose: 650 mg Documented By: BELEN Calamine (Calamine/Zinc Oxide Lotion 177 Ml Bottle) 1 appl TOPICAL QID PRN; Protocol PRN Reason: Rash Last Admin: 02/08/23 20:50 Dose: 1 appl Documented By: IGNACIO Clonidine HCl (Clonidine Hcl 0.1 Mg Tablet) 0.1 mg PO BID PRN; Protocol PRN Reason: Anxiety Docusate Sodium (Docusate Sodium 100 Mg Capsule) 100 mg PO DAILY PRN PRN Reason: Constipation Famotidine (Famotidine 20 Mg Tablet) 20 mg PO BID [facility] Last Admin: 02/08/23 20:31 Dose: 20 mg Documented By: IGNACIO Fluticasone Propionate (Fluticasone Propionate Nasal 16 Gm [place]) 1 spray NOSTRIL-B DAILY [facility] Last Admin: 02/08/23 08:45 Dose: Not Given Documented By: BELEN Non-Admin Reason: Patient Refused Folic Acid (Folic Acid 1 Mg Tablet) 1 mg PO DAILY [facility] Stop: 02/09/23 08:59 Last Admin: 02/08/23 08:44 Dose: 1 mg Documented By: BELEN Gabapentin (Gabapentin 600 Mg Tablet) 600 mg PO BEDTIME [facility] Last Admin: 02/08/23 20:32 Dose: 600 mg Documented By: IGNACIO Hydroxyzine HCl (Hydroxyzine Hcl 25 Mg Tablet) 25 mg PO TID PRN PRN Reason: Anxiety Last Admin: 02/08/23 08:44 Dose: 25 mg Documented By: BELEN Meropenem 1 gm/ Sodium (Chloride) 100 mls @ 200 mls/hr IV Q8H [facility] Last Infusion: 02/09/23 00:53 Dose: 0 mls/hr Documented By: IGNACIO Ketorolac Tromethamine (Ketorolac Tromethamine 15 Mg/Ml Vial) 15 mg IVPUSH Q6H PRN PRN Reason: Pain, Moderate(Pain Scale 4-6) Last Admin: 02/08/23 20:43 Dose: 15 mg Documented By: IGNACIO Lidocaine (Lidocaine 4 % Patch Adh..Patch) 1 patch TRANSDERMA DAILY [facility] Last Admin: 02/08/23 08:45 Dose: 1 patch Documented By: BELEN Loratadine (Loratadine 10 Mg Tablet) 10 mg PO DAILY PRN PRN Reason: Allergy Symptoms Melatonin (Melatonin 3 Mg Tablet) 6 mg PO BEDTIME [facility] Last Admin: 02/08/23 20:31 Dose: 6 mg Documented By: IGNACIO Multivitamins/Vitamin C (Multivitamin Tablet) 1 tab PO DAILY [facility] Stop: 02/09/23 08:59 Last Admin: 02/08/23 08:44 Dose: 1 tab Documented By: BELEN Naltrexone HCl (Naltrexone Hcl 50 Mg Tablet) 50 mg PO DAILY [facility] Last Admin: 02/08/23 08:44 Dose: 50 mg Documented By: BELEN Ondansetron HCl (Ondansetron Hcl 4 Mg/2 Ml Vial) 4 mg IVPUSH Q8H PRN PRN Reason: Nausea and Vomiting Ondansetron HCl (Ondansetron Hcl 4 Mg/2 Ml Vial) 4 mg IVPUSH ONCE PRN PRN Reason: Nausea and Vomiting Oxycodone HCl (Oxycodone Hcl Immed Release 5 Mg Tablet) 5 mg PO Q6H PRN PRN Reason: Pain, Moderate(Pain Scale 4-6) Last Admin: 02/08/23 15:15 Dose: 5 mg Documented By: BELEN Pharmacy Consult (Consult Rx Etoh Phenob Im/Po) 0 each MISCELLANE ONCE PRN; Protocol PRN Reason: Consult order Pharmacy Consult (Consult Rx Perform Med Rec) 1 each MISCELLANE ONCE PRN PRN Reason: Consult order Phenobarbital (Phenobarbital 15 Mg Tablet) 15 mg PO BID [facility] Stop: 02/09/23 21:01 Last Admin: 02/08/23 20:33 Dose: 15 mg Documented By: IGNACIO Phenobarbital (Phenobarbital 15 Mg Tablet) 15 mg PO DAILY [facility] Stop: 02/11/23 09:01 Propranolol HCl (Propranolol Hcl 10 Mg Tablet) 10 mg PO TID [facility]; Protocol Last Admin: 02/08/23 20:32 Dose: 10 mg Documented By: IGNACIO Quetiapine Fumarate (Quetiapine Fumarate 50 Mg Tablet) 150 mg PO BEDTIME [facility] Last Admin: 02/08/23 20:32 Dose: 150 mg Documented By: IGNACIO Sertraline HCl (Sertraline Hcl 50 Mg Tablet) 50 mg PO DAILY [facility] Last Admin: 02/08/23 08:44 Dose: 50 mg Documented By: BELEN Sodium Chloride (0.9 % Sodium Chloride Flush 3 Ml Syringe) 3 ml IVFLUSH [facility] Last Admin: 02/08/23 20:33 Dose: 3 ml Documented By: IGNACIO Thiamine HCl (Thiamine Hcl 100 Mg Tablet) 100 mg PO DAILY [facility] Stop: 02/09/23 08:59 Last Admin: 02/08/23 08:44 Dose: 100 mg Documented By: BELEN Valacyclovir HCl (Valacyclovir Hcl 1,000 Mg Tablet) 1,000 mg PO Q8H [facility] Last Admin: 02/09/23 00:22 Dose: 1,000 mg Documented By: IGNACIO Labs 02/09/23 05:45 02/08/23 05:37 Labs: Laboratory Results - last 24 hr 02/09/23 05:45 MCV 94.2 MCH 30.6 MCHC 32.5 RDW 15.0 Plt Count 208 MPV 10.1 Absolute Nucleated RBC 0.000 Nucleated RBC % (auto) 0.0 Microbiology Microbiology Results: Microbiology 02/06/23 07:42 Blood Culture - Final Blood - Venous Escherichia coli 02/06/23 07:42 Blood Culture - Final Blood - Venous Escherichia coli 02/05/23 16:47 Blood Culture - Final Blood - Venous Escherichia coli 02/05/23 16:47 Blood Culture - Final Blood - Venous Escherichia coli Assessment and Plan (1) Hydroureteronephrosis: Status: Acute (2) Shingles: Status: Acute (3) Alcohol withdrawal: Status: Acute (4) Acidosis, lactic: Status: Acute (5) Bacteremia: Status: Acute Plan 57-year-old female with a PMH significant for alcohol use disorder with hx of withdrawals,?shingles, and anxiety who presents to the ED with?nausea, vomiting, back pain. CT of abd/pelvis showed two right 8mm obstructing calculi. Pt will be admitted to the hospital for treatment of alcohol withdrawal, UTI, and hydroureteronephrosis with likely surgical procedure tomorrow. Sepsis due to UTI with Hydroureteronephrosis. tachycardia tachypnea and lactic acidosis resolved feeling better, no nausea, no vomiting, complaining of pressure with urination, no urgency no burning CT?of abdomen/pelvis showed severe right hydroureteronephrosis with two right 8mm calculi? blood culture grew E coli resistant to ceftriaxone on IV meropenem date 3 underwent cystoscopy noted to have impacted right ureteral stone, stent placed, case discussed with Dr. Gan he recommend 2 weeks of antibiotics and follow-up with them in 2-3 weeks for possible lithotripsy and removal of stone. E coli bacteremia continue IV meropenem followed by 2 weeks of by mouth Bactrim, WBC normalize noted to have low-grade fever of 100.2 this morning follow clinical course Hypokalemia Potassium 2.7 on admission improved to 3.9 with potassium replacement. Lactic acidosis Lactic acid 3.9 at time of presentation, Likely secondary to sepsis resolved with IV fluids Elevated troponins Initial troponin elevated at 19.1m, repeat troponin 13.3, Denies chest pain, EKG negative for ST elevations or depressions Most likely secondary to sepsis, no further cardiac workup initiated. Alcohol withdrawal Patient left treatment program on and has since resumed drinking at about her prior level Continue phenobarb protocol,Daily multivitamin, folic acid, thiamine Follow lytes, Mag, BMP CIWA scale Addiction Team visited patient but patient was sleeping they will attempt to see patient again elevated total bili and AST likely due to alcohol use and sepsis will follow LFTs, patient asymptomatic. Herpes zoster likely shingles rash on lower right back Patient with shingles outbreak in September of this year on mid right side Completed one treatment of Shingrex vaccine, recommend second Shingrex shot continue Valacyclovir 1000 mg p.o. Q 8 hours x7 days, started 02/05/2023, calamine lotion contact precautions. rash improved significantly. Mood disorder Continue home meds Full Code DVT Prophylaxis: Pneumatic boots Pt will require continued hospitalization for treatment of?alcohol withdrawal, Gram-negative waylon bacteremia, on IV antibiotic . Time Spent With Patient Time: Total time managing care of this patient today ____ minutes. Quality Stroke Does the patient have a stroke diagnosis?: No VTE Prior VTE?: No VTE Risk Level:: Medical - moderate - high VTE Device Contraindication: N/A - Device Ordered VTE Drug Contraindication: Treatment Not Indicated
[2023-02-09] MEDS: Ketorolac Tromethamine 15 MG/ML VIAL IVPUSH ×2 (09:30→15:47)
--- NOTE | 2023-02-09 18:50 | PC.NURSE ---
Contacted MD Finney Via tiger text, questioned needs for contact/airborne precautions, said no need for airborne precautions and remain contact. Upon assessment lesions on back are dry.
[2023-02-09] MEDS: oxyCODONE HCl Immed Release 5 MG TABLET PO (20:27)
[2023-02-09] MEDS: QUEtiapine Fumarate 50 MG TABLET 150 MG PO (20:27)
[2023-02-09] MEDS: Gabapentin 600 MG TABLET PO (20:28)
[2023-02-09] MEDS: Melatonin 3 MG TABLET 6 MG PO (20:29)
[2023-02-10] MEDS: oxyCODONE HCl Immed Release 5 MG TABLET PO (03:46)
[2023-02-10] MEDS: Acetaminophen 325 MG TABLET 650 MG PO (03:47)
[2023-02-10 04:00] VITALS: BP 150/70; PULSE 85; RESP 20; TEMP 37.4; O2SAT 93
[2023-02-10 07:38] VITALS: BP 140/77; PULSE 71; RESP 16; TEMP 36.1; O2SAT 98
--- NOTE | 2023-02-10 09:01 | PM.DS ---
DS: Providers Provider Date of Service: 02/10/23 Date of admission: 02/05/23 20:44 Primary care physician: Shane Reina PA-C Consults: 02/05/23 20:13 Consult to Urology Routine Consulting Provider: Kane Gan Reason for consultation: Right hydroureteronephrosis with obstructing 8 mm calculi 02/05/23 21:19 Addiction Medicine Routine Consulting Provider: Addiction Covering Reason for consultation: Alcohol use disorder 02/07/23 08:11 Consult to Infectious Diseases Routine Consulting Provider: Kathryn Le Reason for consultation: hx of esbl bacteremia Has provider been notified: No 02/08/23 08:07 Consult to Infectious Diseases Routine Consulting Provider: Kathryn Le Reason for consultation: bacteremia Has provider been notified: Yes DS: Diagnosis Discharge Diagnosis (1) Hydroureteronephrosis: Status: Acute (2) Shingles: Status: Acute (3) Alcohol withdrawal: Status: Acute (4) Acidosis, lactic: Status: Acute (5) Bacteremia: Status: Acute DS: Summary Hospital Course Hospital Course: history of presenting illness: Date of Service: 02/05/23 Attending physician on admission: Mago French Chief Complaint: Abdominal pain Pt is a 57-year-old female with a PMH significant for alcohol use disorder with hx of withdrawals,?shingles, and anxiety who presents to the ED with?nausea, vomiting, back pain.? Patient states her symptoms began last night when she woke up around 22:30 with sharp shooting pain in her back and nausea and vomiting.? Rates her pain at a 9/10, is located across the whole of her lower back, and she says it feels like somebody is stabbing her in the back.? This morning patient found her pain had increased to the point where she was shaking and could hardly walk or breath.? Patient was unable to eat or drink secondary to nausea and vomiting.? Patient also states that she has been experiencing the past few days dysuria and polyuria.? Also notes a burning, itching, painful sensation on her back reminiscent of the patient's last shingles outbreak which was in September of this year.? Patient states that she received 1 shot of the Shingrix vaccine but has not yet received her 2nd dose.? Patient also has a long history of alcohol use disorder and withdrawals.? Patient left each treatment program around and has been drinking since, up to her previous level.? Past few days patient has been unable to keep food or drink down and has.? Has been drinking only 3-4 nips per day.? Has noticed minor shaking of her upper extremities, feeling diaphoretic, and alternating between hot and cold.? Has had diarrhea for the past 4+ weeks. In the ED patient was afebrile, tachycardic up to 121, satting 96% on RA. Labs were significant for potassium 2.7, creatinine 1.15, lactic acid of 3.9, bilirubin of 2.3, AST 39, troponin 19.1.? UA positive for UTI. CXR showed no acute intrathoracic disease. CT?of abdomen/pelvis showed severe right hydroureteronephrosis with two right 8mm calculi and multiple nonobstructing stones in the left kidney. EKG demonstrated sinus tachycardia of [address] elevations or depressions. Pt was treated with IVF, ondansetron, thiamine, ceftriaxone, valacyclovir, potassium chloride, and started on phenobarb protocol. Pt will be admitted to the hospital for treatment of alcohol withdrawal, UTI, and hydroureteronephrosis with likely surgical procedure tomorrow. hospital course: 57-year-old female with a PMH significant for alcohol use disorder with hx of withdrawals,?shingles, and anxiety who presents to the ED with?nausea, vomiting, back pain. CT of abd/pelvis showed two right 8mm obstructing calculi. Pt will be admitted to the hospital for treatment of alcohol withdrawal, UTI, and hydroureteronephrosis with likely surgical procedure tomorrow. Sepsis due to UTI with Hydroureteronephrosis. initially noted to have tachycardia tachypnea and lactic acidosis,CT?of abdomen/pelvis showed severe right hydroureteronephrosis with two right 8mm calculi?, patient admitted to medical floor treated with IV fluids and IV ceftriaxone however blood culture grew E coli resistant to ceftriaxone therefore antibiotics switched to IV meropenem,?underwent cystoscopy by Dr. Gan noted to have impacted right ureteral stone, stent placed, urology recommend 2 weeks of antibiotics and follow-up with them in 2-3 weeks for possible? lithotripsy and removal ?of stone. patient evaluated by Dr. Le she recommend 2 weeks of by mouth antibiotics patient WBC normalized, all symptoms of of sepsis resolved. Hypokalemia Potassium 2.7? on admission improved to 3.9 with potassium replacement. Elevated troponins Initial troponin elevated at 19.1, repeat troponin 13.3, Denies chest pain, EKG negative for ST elevations or depressions, Most likely secondary to sepsis, no further cardiac workup initiated. Alcohol withdrawal Patient left treatment program on and has since resumed drinking at about her prior level, Treated with phenobarb protocol,Daily multivitamin, folic acid, thiamine Addiction Team visited patient and provided outpatient resources. ?elevated total bili and AST likely due to alcohol use and sepsis repeat LFTs improved patient remained asymptomatic with no nausea vomiting and no abdominal pain. Herpes zoster likely shingles rash on lower right back, Patient with shingles outbreak in September of this year on mid right side, Completed one treatment of Shingrex vaccine, recommend second Shingrex shot treated with Valacyclovir 1000 mg p.o. Q 8 hours x7 days, and calamine lotion, rash improved significantly. Mood disorder Continue home meds Time Spent with Patient Time attestation: Total time managing care of this patient today ____ minutes. Discharge coordination time: Greater than 30 minutes Quality: Safe Use of Opioids Does Pt have an Active Cancer Diagnosis on the Problem List?: No Quality: Stroke Does the patient have a stroke diagnosis?: No Physical Exam Vital Signs: Vital Signs: Last Vital Signs Temp 97.0 F 02/10/23 07:38 Pulse 71 02/10/23 07:38 Resp 16 02/10/23 07:38 BP 140/77 H 02/10/23 07:38 Pulse Ox 98 02/10/23 07:38 O2 Del Method Room Air 02/10/23 07:38 O2 Flow Rate 2 02/06/23 19:24 BMI result Body Mass Index 34.0 Const: Other: General? awake crow rt x3, resting com fortably in no acu te distress.? anic teric sclera Neck supple,no JVD. CVS ? regular rate rhy thm, Respiratory l ungs clear to ausc ultation, no respi ratory distress, n o wheeze, no rhonc hi. Gastrointestin al abdomen soft,?b owel sounds audibl e, no guarding , n o rigidity. no CVA tenderness Extrem ities no edema. Ne uro nonfocal , mov ing all 4 extremit y , no tremors,spe ech clear. Skin? p apular rash locali zed to right butto ck not crossing mi dline, no new lesi ons, no vesicles, no surrounding red ness, no tendernes s to palpation, si gnificant improvem ent and fading of rash Discharge Plan Discharge Anticipated Discharge Date/Time: 02/10/23 08:53 Patient Disposition: Home, Self-Care Discharge Diagnosis: E coli bacteremia right hydroureteronephrosis alcohol use and withdrawal herpes zoster Referrals: Shane Reina PA-C [Primary Care Provider] - 1 Week Discharge Medications: New valacyclovir 1 gram Tablet 1,000 mg PO Q8H Qty: 8 0RF sulfamethoxazole-trimethoprim [Bactrim DS] 800-160 mg tablet 1 tab PO BID Qty: 28 0RF Continued quetiapine 50 mg tablet 150 mg PO BEDTIME clonidine HCl 0.1 mg tablet 0.1 mg PO BID PRN (Reason: Anxiety) acetaminophen 325 mg tablet 650 mg PO Q6H PRN (Reason: FEVER/PAIN) gabapentin 600 mg tablet 600 mg PO BEDTIME naltrexone 50 mg tablet 50 mg PO DAILY propranolol 10 mg tablet 10 mg PO TID lidocaine 5 % adhesive patch,medicated 1 patch topical DAILY hydroxyzine HCl 25 mg tablet 25 mg PO TID PRN (Reason: Anxiety) fluticasone propionate 50 mcg/actuation spray,suspension 1 spray intranasal DAILY sertraline 50 mg tablet 50 mg PO DAILY loratadine 10 mg tablet 10 mg PO DAILY PRN (Reason: Allergy Symptoms) Vivitrol 380 mg suspension,extended rel recon 380 mg IM Q4W melatonin 5 mg tablet 5 mg PO BEDTIME One Daily Multi-Vit w-Mineral 4.5 mg iron tablet 1 tab PO DAILY Discharge Orders: Discharge Order (Routine); Ordered 02/10/23 Ordered By: Rodrick Finney Diet: Advance to usual diet Activity on Discharge: As tolerated Stand Alone Forms: Patient Portal Discharge page Care Plan Goals: take Bactrim 1 tablet by mouth twice daily for 2 weeks, take valcyclovir 1 tablet every 8 hours for total 8 tablets strongly recommend to abstain from alcohol drink plenty of fluids use calamine lotion for right lower back rash Health Concerns: alcohol use Plan of Treatment: follow-up with primary care physician call for appointment follow-up with Urology Dr. Kane Gan in 2-3 weeks call for appointment Assessment: as above
--- NOTE | 2023-02-10 09:24 | HO.POSTANES ---
Post Anesthesia Evaluation Post Anesthesia Evaluation Date of Service: 02/07/23 Vital Signs: Vital Signs Temp Pulse Resp BP Pulse Ox O2 Del Method 02/10/23 07:38 97.0 F 71 16 140/77 H 98 Room Air 02/10/23 04:00 99.3 F 85 20 150/70 H 93 Room Air Anesthesia: General Mental Status: Awake Pain Control: Satisfactory Nausea/Vomiting: None Hydration: Adequate Anesthesia-Related Issues: No Anes. Related Issues
--- NOTE | 2023-02-10 09:28 | MHC.CM.PN ---
PATIENT IS DC HOME WITH OUTPATIENT RESOURCES
== END 2023-02-10 08:45 | disposition home or self-care (01) | DRG 720 ==
LOC: HO.ED 17:58 → HO.EDOVER 21:01 → HO.S3 21:59
PROVIDERS: Internal Medicine; Physician Assistant; Urology; Admitting Provider Student in an Organized Health Care Education/Training Program; Emergency Provider Emergency Medicine; PCP Physician Assistant; Visit Provider Hospitalist
PROC: 0T768DZ Dilation of Right Ureter with Intraluminal Device, Via Natural or Artificial Opening Endoscopic (ICD-10-PCS; principal; 2023-02-06 17:40)
DX: A41.9 Sepsis, unspecified organism (principal); S06.9XAS Unspecified intracranial injury with loss of consciousness status unknown, sequela; N13.6 Pyonephrosis; E87.6 Hypokalemia; B96.20 Unspecified Escherichia coli [E. coli] as the cause of diseases classified elsewhere; F10.230 Alcohol dependence with withdrawal, uncomplicated; Z16.19 Resistance to other specified beta lactam antibiotics; F39 Unspecified mood [affective] disorder; X58.XXXS Exposure to other specified factors, sequela; B02.9 Zoster without complications; Z79.51 Long term (current) use of inhaled steroids; Z79.899 Other long term (current) drug therapy
CPT/HCPCS: 36415; 71046; 74176; 80048; 80076; 80307; 81001; 81003; 83605; 83690; 83735; 84484; 85025; 85027; 85610; 85730; 87040; 87077; 87086; 87088; 87186; 87205; 93005; 99285; C1758; C1769; C2617; J0131; J0696; J1335; J1885; J1956; J2185; J2250; J2270; J2405; J2560; J3010; J3411; Q9967

== ENCOUNTER 2023-02-16 14:24 | Emergency (ER) | payer OTHER, SELFPAY ==
[2023-02-16 14:31] VITALS: BP 129/64; PULSE 81
[2023-02-16 15:47] VITALS: BP 139/79; PULSE 92; RESP 18; TEMP 36.7; O2SAT 95; BMI 32.1
--- NOTE | 2023-02-16 15:48 | ED.PSYCH ---
HPI - Psych General Chief Complaint: Psychiatric Symptoms Stated Complaint: DETOX Time Seen by Provider: 02/16/23 17:13 Source: patient Mode of arrival: ambulatory Limitations: no limitations History of Present Illness HPI Narrative: Patient alcoholic with history of depression left detox program around and since been drinking looking for sober place patient was seen here multiple times just discharged on 02/10 no current suicidal thought but when she came she told the RN that she would overdose on her pills Related Data Home Medications Medication Instructions Recorded Confirmed clonidine HCl 0.1 mg tablet 0.1 mg PO BID 02/16/23 02/16/23 loratadine 10 mg tablet 10 mg PO DAILY 02/16/23 02/16/23 melatonin 5 mg tablet 5 mg PO BEDTIME 02/16/23 02/16/23 naltrexone microspheres 380 mg 380 mg IM Q4W 02/16/23 02/16/23 intramuscular suspension,extended release (Vivitrol) propranolol 10 mg tablet 10 mg PO TID 02/16/23 02/16/23 quetiapine 50 mg tablet 150 mg PO BEDTIME 02/16/23 02/16/23 sertraline 50 mg tablet 50 mg PO DAILY 02/16/23 02/16/23 Previous Rx's Medication Instructions Recorded clonidine HCl 0.1 mg tablet 0.1 mg PO BID #60 tabs 02/17/23 loratadine 10 mg capsule 10 mg PO DAILY #30 caps 02/17/23 melatonin 5 mg capsule 5 mg PO .qhs #30 caps 02/17/23 propranolol 10 mg tablet 10 mg PO TID #90 tabs 02/17/23 quetiapine 50 mg tablet 150 mg PO BEDTIME #90 tabs 02/17/23 sertraline 50 mg tablet 50 mg PO .qhs #30 tabs 02/17/23 Allergies Allergy/AdvReac Type Severity Reaction Status Date / Time No Known Allergies Allergy Verified 01/30/23 22:14 [No Known Allergies*] Review of Systems Review of Systems: Yes all other systems are reviewed and are negative [facility] Past Medical History Medical History Depression ETOH abuse Mood disorder as late effect of traumatic brain injury Rash TBI (traumatic brain injury) Social History Social History Household Members: Unknown / Unable to assess Household Members Other:: Reports has been [employer] surfing. Housing: Apartment Unable to assess alcohol history related to: Unknown Alcohol intake: current Alcohol intake frequency: 3 or more drinks per day Alcohol type: hard liquor Patient Tobacco Use Status: Never used Tobacco Smoked in Last 30 Days: No e-Cigarette/Vaping Use: Never Used Second Hand Smoke Exposure: No Use of substances other than those prescribed or required for medical reasons: No Substance Use Type: Caffiene Advance Directives: Yes Advance Directives on File: Yes Advance Directives Date on File: 05/06/21 Healthcare Proxy: No Guardian: No service: No Current occupational status: disabled Sexual orientation: Straight/Heterosexual Physical Exam Vital Signs: Vital Signs: Last Vital Signs Temp 98.2 F 02/17/23 14:13 Pulse 93 02/17/23 14:13 Resp 16 02/17/23 14:13 BP 147/80 H 02/17/23 14:13 Pulse Ox 100 02/17/23 14:13 O2 Del Method Room Air 02/17/23 14:13 BMI result Body Mass Index 32.1 Appearance: Alert. Oriented X3. No acute distress. Eyes: PERRLA, No Nystagmus ENT: Pharynx normal. Oral Mucosa moist Neck: Normal inspection. Neck supple. CVS: Normal heart rate and rhythm. Pulses normal. Respiratory: No respiratory distress. Equal air entry bilateral, no wheezing/rales/rhonchi Abdomen: Soft and nontender. Bowel sounds are present, no mass palpable, no CVA tenderness Skin: Skin warm and dry. Normal skin color. Normal skin turgor. Extremities: No lower extremity edema. No calf tenderness psych: Depressed denies any SI at this time Neuro: Oriented X 3. No motor deficit. No sensory deficit.No cerebellar signs , cranial nerves II-XII intact Course Course Course Narrative: This is an RME: Additional HPI, ROS, PE not included below will be deferred to primary provider. Patient is a 57-year-old female who presents emergency department via EMS, reporting SI, states she would Overdose if she had access to her pills, they are however at her sons house. She is seeking assistance with detox from alcohol, last drank 10:00, 1 nip and three beers. Reports a possible remote hx of withdrawal seizures. Plan: placed in pod Reevaluation(s) Reevaluation #1: physician observation: Patient presented with SI and wanting detox, she has had an uneventful night, awaiting crisis evaluation Time: 09:03 Medications Administered Generic Name Dose Route Start Last Admin Trade Name Freq PRN Reason Stop Dose Admin Lorazepam 2 mg 02/16/23 19:42 02/16/23 20:54 Lorazepam 1 Mg Tablet PO 2 mg Q4H PRN Administration Alcohol Withdrawal Discontinued Medications Generic Name Dose Route Start Last Admin Trade Name Freq PRN Reason Stop Dose Admin Lorazepam 2 mg 02/17/23 08:19 02/17/23 08:37 Lorazepam 1 Mg Tablet PO 02/17/23 08:20 2 mg ONCE ONE Administration Medical Decision Making Medical Decision Making [facility] Narrative: Patient seen by care team patient admits SI to the care team plan to re-evaluate and place her in sober home in a.m. Lab Data [facility] Lab Attestation statement: I reviewed the patient's lab results. 02/16/23 16:28 02/16/23 16:27 Labs: Lab Results 02/16/23 02/16/23 02/16/23 Range/Units 16:27 16:27 16:27 WBC (4.8-10.8) X10*3/uL RBC (4.20-5.50) X10*6/uL Hgb (12.0-16.0) g/dl Hct (37.0-47.0) % MCV (80.0-98.0) fL MCH (27.0-33.0) pg MCHC (31.0-35.0) g/dl RDW (11.0-16.0) % Plt Count (160-400) X10*3/uL MPV (9.4-12.3) fL Immature Gran % (Auto) (0.0-0.4) % Neut % (Auto) (45-73) % Lymph % (Auto) (20-40) % [place] % (Auto) (2-11) % Eos % (Auto) (0-4) % Baso % (Auto) (0-2) % Lymph # (Auto) (1.2-4.9) X10*3/uL [place] # (Auto) (0.1-1.2) X10*3/uL Eos # (Auto) (0.0-0.4) X10*3/uL Baso # (Auto) (0.0-0.2) X10*3/uL Abs Immat Gran (auto) (0.00-0.03) X10*3/uL Absolute Neuts (auto) (2.0-8.3) x10*3/uL Absolute Nucleated RBC (0.0-0.012) X10*3/uL Nucleated RBC % (auto) (0.0-0.2) /100WBC Sodium 143 (135-145) mmol/L Potassium 4.1 (3.3-5.1) mmol/L Chloride 106 (96-108) mmol/L Carbon Dioxide 27 (22-29) mmol/L Anion Gap 14 (12-20) BUN 15 (9-16) mg/dL Creatinine 1.25 (0.5-1.4) mg/dL Estim Creat Clear Calc 45.5 Estimated GFR 44 Random Glucose 89 (60-115) mg/dL Calcium 9.8 D (8.4-10.2) mg/dL Total Bilirubin 0.5 (0.0-1.0) mg/dL AST 20 (5-31) U/L ALT 14 (0-31) U/L Alkaline Phosphatase 89 (39-117) U/L Total Protein 8.2 H (6.5-8.0) g/dL Albumin 4.0 (3.5-5.0) g/dL Lipase 42 (8-78) U/L Urine Color Yellow Urine Appearance Clear Urine pH 6.5 (5.0-9.0) Ur Specific [place] 1.015 (1.005-1.025) Urine Protein 30 (1+) H (Neg-Trace) mg/dL Urine Glucose (UA) Negative (Negative) mg/dL Urine Ketones Trace (Negative) mg/dL Urine Blood Moderate (2+) H (Negative) Urine Nitrite Negative (Negative) Ur Leukocyte Esterase Small (1+) H (Negative) Urine RBC >20 H (0-2) /HPF Urine WBC 6-10 H (0-5) /HPF Ur Squamous Epith Cells 0-2 (0-2) /HPF Urine Bacteria None Seen (None Seen) Hyaline Casts 0-2 (0-2) /LPF Urine Opiates Screen Not Detected (Not Detect) Urine Fentanyl Screen Not Detected (Not Detect) Ur Barbiturates Screen POSITIVE H (Not Detect) Ur Phencyclidine Scrn Not Detected (Not Detect) Ur Amphetamines Screen Not Detected (Not Detect) U Benzodiazepines Scrn Not Detected (Not Detect) Urine Cocaine Screen Not Detected (Not Detect) U Marijuana (THC) Screen Not Detected (Not Detect) Ethyl Alcohol 72 mg/dL COVID-19 (GARCIA) (Negative) COVID-19 Clin Com 02/16/23 02/16/23 Range/Units 16:28 17:06 WBC 8.9 (4.8-10.8) X10*3/uL RBC 3.65 L (4.20-5.50) X10*6/uL Hgb 11.4 L (12.0-16.0) g/dl Hct 34.5 L (37.0-47.0) % MCV 94.5 (80.0-98.0) fL MCH 31.2 (27.0-33.0) pg MCHC 33.0 (31.0-35.0) g/dl RDW 15.8 (11.0-16.0) % Plt Count 663 H D (160-400) X10*3/uL MPV 9.1 L (9.4-12.3) fL Immature Gran % (Auto) 0.8 H (0.0-0.4) % Neut % (Auto) 55.1 (45-73) % Lymph % (Auto) 34.3 (20-40) % Brantley % (Auto) 7.0 (2-11) % Eos % (Auto) 1.7 (0-4) % Baso % (Auto) 1.1 (0-2) % Lymph # (Auto) 3.1 (1.2-4.9) X10*3/uL [place] # (Auto) 0.6 (0.1-1.2) X10*3/uL Eos # (Auto) 0.2 (0.0-0.4) X10*3/uL Baso # (Auto) 0.1 (0.0-0.2) X10*3/uL Abs Immat Gran (auto) 0.07 H (0.00-0.03) X10*3/uL Absolute Neuts (auto) 4.9 (2.0-8.3) x10*3/uL Absolute Nucleated RBC 0.000 (0.0-0.012) X10*3/uL Nucleated RBC % (auto) 0.0 (0.0-0.2) /100WBC Sodium (135-145) mmol/L Potassium (3.3-5.1) mmol/L Chloride (96-108) mmol/L Carbon Dioxide (22-29) mmol/L Anion Gap (12-20) BUN (9-16) mg/dL Creatinine (0.5-1.4) mg/dL Estim Creat Clear Calc Estimated GFR Random Glucose (60-115) mg/dL Calcium (8.4-10.2) mg/dL Total Bilirubin (0.0-1.0) mg/dL AST (5-31) U/L ALT (0-31) U/L Alkaline Phosphatase (39-117) U/L Total Protein (6.5-8.0) g/dL Albumin (3.5-5.0) g/dL Lipase (8-78) U/L Urine Color Urine Appearance Urine pH (5.0-9.0) Ur Specific [place] (1.005-1.025) Urine Protein (Neg-Trace) mg/dL Urine Glucose (UA) (Negative) mg/dL Urine Ketones (Negative) mg/dL Urine Blood (Negative) Urine Nitrite (Negative) Ur Leukocyte Esterase (Negative) Urine RBC (0-2) /HPF Urine WBC (0-5) /HPF Ur Squamous Epith Cells (0-2) /HPF Urine Bacteria (None Seen) Hyaline Casts (0-2) /LPF Urine Opiates Screen (Not Detect) Urine Fentanyl Screen (Not Detect) Ur Barbiturates Screen (Not Detect) Ur Phencyclidine Scrn (Not Detect) Ur Amphetamines Screen (Not Detect) U Benzodiazepines Scrn (Not Detect) Urine Cocaine Screen (Not Detect) U Marijuana (THC) Screen (Not Detect) Ethyl Alcohol mg/dL COVID-19 (GARCIA) Negative (Negative) COVID-19 Clin Com See Note Discharge Plan Discharge Clinical Impression: Alcohol abuse, Depression with suicidal ideation Patient Disposition: Xfer Other Transfer Details: To go to [facility] Prescriptions: New clonidine HCl 0.1 mg tablet 0.1 mg PO BID Qty: 60 0RF loratadine 10 mg capsule 10 mg PO DAILY Qty: 30 0RF melatonin 5 mg capsule 5 mg PO .qhs Qty: 30 0RF propranolol 10 mg tablet 10 mg PO TID Qty: 90 0RF quetiapine 50 mg tablet 150 mg PO BEDTIME Qty: 90 0RF sertraline 50 mg tablet 50 mg PO .qhs Qty: 30 0RF No Action clonidine HCl 0.1 mg tablet 0.1 mg PO BID propranolol 10 mg tablet 10 mg PO TID sertraline 50 mg tablet 50 mg PO DAILY loratadine 10 mg tablet 10 mg PO DAILY quetiapine 50 mg tablet 150 mg PO BEDTIME Vivitrol 380 mg suspension,extended rel recon 380 mg IM Q4W melatonin 5 mg tablet 5 mg PO BEDTIME Referrals: Shane Reina PA-C [Primary Care Provider] - 1 week Interventions: [place]-Suicide Risk Severity Scale Last Done: 02/17/23 14:13
[2023-02-16 16:37] LABS: MANUAL DIFF FLAG NO
[2023-02-16 16:40] LABS: Appearance Urine Clear; Color Urine Yellow; Glucose Urine UA Negative (Negative); Leukocyte Esterase Urine Small (1+) (Negative); Nitrite Urine Negative (Negative); PH 6.5 (5.0-9.0); Specific Gravity - Urine 1.015 (1.005-1.025); UMIC TRIGGER UACC YES; Urine Blood Moderate (2+) (Negative); Urine Ketones Trace mg/dL (Negative); Urine Protein 30 (1+) mg/dL (Neg-Trace)
[2023-02-16 16:46] LABS: Bacteria Urine None Seen (None Seen); Hyaline Casts Urine 0-2 /LPF (0-2); RBC Urine >20 /HPF (0-2); Squamous Epithelial Cell Urine 0-2 /HPF (0-2); UACC Culture Trigger YES
[2023-02-16 16:50] LABS: Amphetamine Screen Urine Not Detected (Not Detect); Barbiturates, Urine POSITIVE (Not Detect); Benzodiazepines Screen Urine Not Detected (Not Detect); Cannabinoid Screen Urine Not Detected (Not Detect); Cocaine Screen Urine Not Detected (Not Detect); Fentanyl, urine Not Detected (Not Detect); Opiate Screen Urine Not Detected (Not Detect); Phencyclidine Screen Urine Not Detected (Not Detect)
[2023-02-16 16:53] LABS: Alanine Aminotransferase 14 U/L (0-31); Alkaline Phosphatase 89 U/L (39-117); Anion Gap 14 (12-20); Aspartate Amino Transferase 20 U/L (5-31); Bilirubin Total 0.5 mg/dL (0.0-1.0); Blood Urea Nitrogen 15 mg/dL (9-16); Calcium 9.8 mg/dL (8.4-10.2); Carbon Dioxide 27 mmol/L (22-29); Chloride 106 mmol/L (96-108); Creatinine Clr Calc Pharmacy 45.5; Estimated Glomerular Filt Rate 44; Ethanol 72 mg/dL; Glucose Random 89 mg/dL (60-115); Lipase 42 U/L (8-78); Potassium 4.1 mmol/L (3.3-5.1); Sodium 143 mmol/L (135-145); Total Protein 8.2 g/dL (6.5-8.0)
[2023-02-16 17:24] LABS: Basophils Absolute Auto 0.1 X10*3/uL (0.0-0.2); Basophils Percent Auto 1.1 % (0-2); Eosinophils Absolute Auto 0.2 X10*3/uL (0.0-0.4); Eosinophils Percent Auto 1.7 % (0-4); Hematocrit 34.5 % (37.0-47.0); Hemoglobin 11.4 g/dl (12.0-16.0); Imm Gran Abs Auto 0.07 X10*3/uL (0.00-0.03); Imm Gran Pct Auto 0.8 % (0.0-0.4); Lymphocytes Absolute Auto 3.1 X10*3/uL (1.2-4.9); Lymphocytes Percent Auto 34.3 % (20-40); Mean Corpuscular Hemoglobin 31.2 pg (27.0-33.0); Mean Corpuscular Volume 94.5 fL (80.0-98.0); Mean Platelet Volume 9.1 fL (9.4-12.3); Monocytes Absolute Auto 0.6 X10*3/uL (0.1-1.2); Neutrophils Absolute Auto 4.9 x10*3/uL (2.0-8.3); Neutrophils Percent Auto 55.1 % (45-73); Platelet Count 663 X10*3/uL (160-400); Red Blood Count 3.65 X10*6/uL (4.20-5.50); Red Cell Distribution Width 15.8 % (11.0-16.0); White Blood Count 8.9 X10*3/uL (4.8-10.8)
[2023-02-16 17:27] LABS: COVID-19 Test Negative (Negative); IDNOW Serial# BCCEAD1C
--- NOTE | 2023-02-16 19:51 | PHA.MEDREC ---
Pharmacy Consult ? Medication Reconciliation Pharmacy has reviewed the medication reconciliation completed by Jovanni. Cleopatra Ray, RadhaD
[2023-02-16] MEDS: LORazepam 1 MG TABLET 2 MG PO (20:54)
[2023-02-17 05:52] VITALS: BP 149/75; PULSE 98; RESP 18; TEMP 36.4; O2SAT 97
--- NOTE | 2023-02-17 05:54 | PC.NURSE ---
Patient slept through the night, no distress observed/reported, behavior non concerning, asymptomatic of withdrawal at this time, Ativan 2 mg PO administered at 2053 with + effect, patient assessed by care team disposition is detox bed search, paln is to go to [facility] today, VSS, med rec completed/pending provider's approval, will continue to monitor.
[2023-02-17 08:02] VITALS: BP 148/78; PULSE 97; RESP 18; TEMP 36.7; O2SAT 97
[2023-02-17] MEDS: LORazepam 1 MG TABLET 2 MG PO ×2 (08:37→15:53)
--- NOTE | 2023-02-17 09:42 | MHC.RECOVRN ---
This mortgage loan underwriter met with patient, patient requesting detox. Pt reports was living at [facility] in [place], [place]. Pt reports left the [facility] weekend. Pt reports since drinking every other day 3 nips, chased with a few beers. Last drink, yesterday 10am, 2 nips. Pt requesting detox. Pt reports due to past behaviour, unclear if can return to [facility], pt would like to return to [facility] if possible. This mortgage loan underwriter inquiring if pt able to return.
--- NOTE | 2023-02-17 10:20 | PC.NURSE ---
currently sleeping, ativan given for ciwa 20, alert, speech clear, steady gait, denies si, wants detox
[2023-02-17 14:13] VITALS: BP 147/80; PULSE 93; RESP 16; TEMP 36.8; O2SAT 100
--- NOTE | 2023-02-17 14:18 | PC.NURSE ---
aox4. lunch offered. resting. calm, coop. ciwa 3. reports a headache and no other sx. breathing normally. no acute distress. no iv
--- NOTE | 2023-02-17 15:28 | MHC.RECOVSUP ---
Pt completed phone screen with N and is accepted for today before 5pm. Provider aware and [employer] ordered.
== END 2023-02-17 15:57 | disposition other institution (70) ==
PROVIDERS: Nurse Practitioner Family; Emergency Provider Internal Medicine; PCP Physician Assistant
DX: F33.1 Major depressive disorder, recurrent, moderate (principal); R45.851 Suicidal ideations; F10.10 Alcohol abuse, uncomplicated; Y90.3 Blood alcohol level of 60-79 mg/100 ml; Z20.822 Contact with and (suspected) exposure to COVID-19; Z20.828 Contact with and (suspected) exposure to other viral communicable diseases; Z79.899 Other long term (current) drug therapy
CPT/HCPCS: 36415; 80053; 80307; 81001; 83690; 85025; 87086; 87635; 99284; S9485

== ENCOUNTER 2023-02-28 23:16 | Emergency (ER) | payer OTHER, SELFPAY ==
[2023-02-28 23:26] VITALS: BP 112/58; BP 132/70; PULSE 69; PULSE 76; RESP 16; TEMP 36.5; O2SAT 96; O2SAT 98; BMI 31.5
--- NOTE | 2023-02-28 23:47 | PC.NURSE ---
Pt A&Ox4, Pt reports chronic upper back pain. Pt reports having high anxiety and depression with SI statement to take pills. Denies HI, auditory/visual hallucinations. Reports last alcohol drink was today at 1100.
--- NOTE | 2023-03-01 00:24 | PC.NURSE ---
Pt changed over by security and staff, belongings placed in locker #9 per security. Pt ambulated independently with steady gait.
--- NOTE | 2023-03-01 00:30 | ED.ALCOHOL ---
HPI - Alcohol General Chief Complaint: ETOH/Substance Use Stated Complaint: etoh Time Seen by Provider: 03/01/23 00:02 Source: patient Mode of arrival: EMS Limitations: no limitations History of Present Illness HPI narrative: patient comes to the emergency room from a sober house. Patient states that she was unable to get in because patient drank a lot on the 25 of February, then she did not return to the sober house, stayed over at a friend's house and drank a lot of alcohol, seems that patient brought alcohol for a bruce at the sober house. Patient reporting anxiety and depression, suicidal ideation, stating that she would take pills. Last drink of alcohol was reported at 11:00 today. Patient denies any injuries, no falls. Related Data Home Medications Medication Instructions Recorded Confirmed naltrexone microspheres 380 mg 380 mg IM Q4W 02/16/23 02/27/23 intramuscular suspension,extended release (Vivitrol) fluticasone propionate 50 1 spray intranasal DAILY 02/27/23 02/27/23 mcg/actuation nasal spray,suspension multivitamin 1 tab PO DAILY 02/27/23 02/27/23 Previous Rx's Medication Instructions Recorded clonidine HCl 0.1 mg tablet 0.1 mg PO BID #60 tabs 02/17/23 loratadine 10 mg capsule 10 mg PO DAILY #30 caps 02/17/23 melatonin 5 mg capsule 5 mg PO .qhs #30 caps 02/17/23 propranolol 10 mg tablet 10 mg PO TID #90 tabs 02/17/23 quetiapine 50 mg tablet 150 mg PO BEDTIME #90 tabs 02/17/23 sertraline 50 mg tablet 50 mg PO .qhs #30 tabs 02/17/23 Allergies Allergy/AdvReac Type Severity Reaction Status Date / Time No Known Allergies Allergy Verified 01/30/23 22:14 [No Known Allergies*] Review of Systems Review of Systems: Constitutional : No Weight loss, No Fever, No Chills, No Night Sweats, No Fatigue, No Malaise ENT/Mouth : No Hearing loss, No Ear Pain, No Nasal Congestion, No Sinus Pain, No Hoarseness, No sore throat, No Rhinorrhea, No Swallowing Difficulty Eyes: No Eye Pain, No Swelling, No Redness, No Foreign Body, No Discharge, No Vision Changes Cardiovascular : No Chest Pain, No SOB, No Dyspnea on Exertion, No Orthopnea, No Edema, No Palpitations Respiratory : No Cough, No Sputum, No Wheezing, No Smoke Exposure, No Dyspnea Gastrointestinal : No Nausea, No Vomiting, No Diarrhea, No Constipation, No abdominal Pain, No Hematochezia, No Melena Genitourinary : no irregular bleeding, No Dysuria, No Urinary Frequency, No Hematuria, No Urinary Incontinence, No Urgency, No Flank Pain, No Urinary Flow Changes, No Hesitancy Musculoskeletal : No joint pain, No Myalgias, No Joint Swelling Skin : No Skin Lesions, No rash Neuro : No Weakness, No Numbness, No Paresthesias, No Loss of Consciousness, No Dizziness, No Headache Psych : No Anxiety/Panic, Complaining of depression, SI, no HI, admits to drinking alcohol Heme/Lymph: No Bruising, No Bleeding,No Lymphadenopathy Endocrine : No Polyuria, No Polydipsia, No Temperature Intolerance PMFSH Past Medical History Medical History Depression ETOH abuse Mood disorder as late effect of traumatic brain injury Rash TBI (traumatic brain injury) Surgical History Hx of cystoscopy Social History Social History Household Members: Unknown / Unable to assess Household Members Other:: Reports has been [employer] surfing. Housing: Apartment Unable to assess alcohol history related to: Unknown Alcohol intake: never Patient Tobacco Use Status: Never used Tobacco Smoked in Last 30 Days: No e-Cigarette/Vaping Use: Never Used Second Hand Smoke Exposure: No Use of substances other than those prescribed or required for medical reasons: No Substance Use Type: Caffiene Advance Directives: Yes Advance Directives on File: Yes Advance Directives Date on File: 05/06/21 Patient : No service: No Current occupational status: disabled Sexual orientation: Straight/Heterosexual Physical Exam ED Vital Signs: Vital Signs - 24 hr 02/28/23 23:26 Temperature 97.7 F Pulse Rate 69 Respiratory Rate 16 Blood Pressure 112/58 L Pulse Oximetry 96 Oxygen Delivery Method Room Air BMI result Body Mass Index 31.5 Const Other: Appearance: Alert. Oriented X3. No acute distress. coherent Eyes: Pupils equal, round and reactive to light. ENT: Pharynx normal. Neck: Normal inspection. Neck supple. No lymph nodes noted. No crepitus CVS: Normal heart rate and rhythm. Pulses normal. Normal S1 and S2 Respiratory: No respiratory distress. Breath sounds normal. No Wheezing. No rales Abdomen: Soft and nontender. No rigidity. No distention. Skin: Skin warm and dry. Normal skin color. Normal skin turgor. Extremities: No lower extremity edema. No Lacerations. No Rash Neuro: Oriented X 3. No motor deficit. No sensory deficit. Moving all extremities. No slurred speech. CN 2 through 12 grossly intact Psych: calm, cooperative, normal affect Course Course Course Narrative: - all patient's labs pending - care team consult pending - physician observation started at 00:05 - sign-out given to Dr. Andrew Discharge Plan Discharge Clinical Impression: Alcohol dependence, Suicide ideation Patient Disposition: Still a Patient Prescriptions: No Action multivitamin Tablet 1 tab PO DAILY fluticasone propionate 50 mcg/actuation spray,suspension 1 spray intranasal DAILY Vivitrol 380 mg suspension,extended rel recon 380 mg IM Q4W clonidine HCl 0.1 mg tablet 0.1 mg PO BID Qty: 60 0RF loratadine 10 mg capsule 10 mg PO DAILY Qty: 30 0RF melatonin 5 mg capsule 5 mg PO .qhs Qty: 30 0RF propranolol 10 mg tablet 10 mg PO TID Qty: 90 0RF quetiapine 50 mg tablet 150 mg PO BEDTIME Qty: 90 0RF sertraline 50 mg tablet 50 mg PO .qhs Qty: 30 0RF
[2023-03-01 02:35] VITALS: BP 102/58; PULSE 68; RESP 16; TEMP 36.5; O2SAT 99
[2023-03-01 05:35] VITALS: BP 105/63; PULSE 82; RESP 16; TEMP 36.6; O2SAT 95
[2023-03-01 05:43] VITALS: RESP 16
[2023-03-01 07:14] VITALS: BP 129/64; PULSE 88; RESP 12; TEMP 36.7; O2SAT 95
--- NOTE | 2023-03-01 07:41 | PC.NURSE ---
patient sleeping in stretcher, VSS, equal chest rise and fall, resp unlabored
--- NOTE | 2023-03-01 08:42 | PC.NURSE ---
patient medicated for alcohol wd, ciwa score 3. CARE team at bedside
--- NOTE | 2023-03-01 08:44 | MHC.EDTECH ---
Offered breakfast tray to Pt who refused, stating I'm all set, I don't want to eat.
--- NOTE | 2023-03-01 11:12 | MHC.RECOVRN ---
Met with pt in 1 after cleared from CARE Team. Pt sitting in bed, awake, alert, easily engages in conversation. Pt reports having been at [facility] with a plan to transfer to [facility] in [place] on 02/26. Pt dc [facility] on 02/24, had appt at [facility] in [place]. While in [place], met up with friends and had a recurrence with alcohol. Pt reports a 3 day lance in which she did not make her intake appt with [facility]. Pt reports she no longer has the money for [facility] but would still be interested in their program when she receives some income. Attempted calling [facility] multiple times, no answer. Website and voicemails say call back during normal business hours. Pt is interested in [facility] if unable to go to [facility]. T/w has reached out to [facility] to see if there is bed availability, awaiting notification.
[2023-03-01 11:44] VITALS: BP 120/69; PULSE 96; RESP 16; O2SAT 96
--- NOTE | 2023-03-01 14:12 | MHC.RECOVRN ---
[facility] does not have bed availability today, however, [facility] rep Serg Lynn spoke with pt and will be conducting phone intake to plan for pt to be accepted tomorrow. Pt agreeable. Will stay with friend for the night. Pt denies other questions or concerns.
--- NOTE | 2023-03-01 14:29 | MHC.RECOVRN ---
Pts referral sent to Serg Lynn at fax # [phone].
== END 2023-03-01 14:26 | disposition home or self-care (01) ==
PROVIDERS: Emergency Provider Emergency Medicine; PCP Physician Assistant
DX: R45.851 Suicidal ideations (principal); F10.20 Alcohol dependence, uncomplicated; Y90.4 Blood alcohol level of 80-99 mg/100 ml; F41.8 Other specified anxiety disorders; Z87.820 Personal history of traumatic brain injury; Z79.899 Other long term (current) drug therapy
CPT/HCPCS: 36415; 80048; 80307; 81001; 83735; 85025; 87086; 87088; 87186; 99285; S9485

== ENCOUNTER 2023-03-01 18:09 | Emergency (ER) | payer OTHER, SELFPAY ==
[2023-03-01 18:20] VITALS: BP 123/66; BP 132/74; PULSE 100; PULSE 99; RESP 18; TEMP 36.6; O2SAT 93; O2SAT 95; BMI 33.1
--- NOTE | 2023-03-01 19:11 | ED.PSYCH ---
HPI - Psych General Chief Complaint: Psychiatric Symptoms Stated Complaint: seeking detox Time Seen by Provider: 03/01/23 19:09 Source: patient, EMS and old records reviewed Mode of arrival: EMS Limitations: no limitations History of Present Illness HPI Narrative: 57 yo female with history of ETOH use disorder who was just seen here for the same and discharged at midnight who presents to the ER via EMS seeking detox after she drank alcohol. She states she was supposed to go to a friend's house until she could get a bed a detox tomorrow. Unfortunately she drank alcohol instead, did not go to the friend's house. She is homeless. She has been nauseated since drinking. No vomiting or abdominal pain. No SI, thoughts of self harm or HI. She elicits headache, some shakiness and general withdrawal symptoms. She reports drinking 3-4 nips a day and chasing each of those with a beer. did this for 2 days prior to presenting to ED. MD complaint: alcohol abuse Onset (ago): unknown Duration: getting worse History of same: Yes Relieving factors: none Exacerbating factors: none Context: recent alcohol abuse Associated symptoms: nausea Treatments prior to arrival: none Related Data Home Medications Medication Instructions Recorded Confirmed naltrexone microspheres 380 mg 380 mg IM Q4W 02/16/23 02/27/23 intramuscular suspension,extended release (Vivitrol) fluticasone propionate 50 1 spray intranasal DAILY 02/27/23 02/27/23 mcg/actuation nasal spray,suspension multivitamin 1 tab PO DAILY 02/27/23 02/27/23 Previous Rx's Medication Instructions Recorded clonidine HCl 0.1 mg tablet 0.1 mg PO BID #60 tabs 02/17/23 loratadine 10 mg capsule 10 mg PO DAILY #30 caps 02/17/23 melatonin 5 mg capsule 5 mg PO .qhs #30 caps 02/17/23 propranolol 10 mg tablet 10 mg PO TID #90 tabs 02/17/23 quetiapine 50 mg tablet 150 mg PO BEDTIME #90 tabs 02/17/23 sertraline 50 mg tablet 50 mg PO .qhs #30 tabs 02/17/23 cefuroxime axetil 500 mg tablet 500 mg PO BID #14 tabs 03/01/23 Allergies Allergy/AdvReac Type Severity Reaction Status Date / Time No Known Allergies Allergy Verified 01/30/23 22:14 [No Known Allergies*] Review of Systems Review of Systems: Yes all other systems are reviewed and are negative [facility] Past Medical History Medical History Depression ETOH abuse Mood disorder as late effect of traumatic brain injury Rash TBI (traumatic brain injury) Surgical History Hx of cystoscopy Social History Social History Household Members: Unknown / Unable to assess Household Members Other:: Reports has been [employer]. Housing: Apartment Unable to assess alcohol history related to: Unknown Alcohol intake: never Patient Tobacco Use Status: Never used Tobacco e-Cigarette/Vaping Use: Never Used Second Hand Smoke Exposure: No Substance Use Type: Caffiene Advance Directives: Yes Advance Directives on File: Yes Advance Directives Date on File: 05/06/21 Patient : No service: No Current occupational status: disabled Sexual orientation: Straight/Heterosexual Physical Exam Vital Signs: Vital Signs: Last Vital Signs Temp 97.8 F 03/01/23 18:20 Pulse 99 03/01/23 18:20 Resp 18 03/01/23 18:20 BP 123/66 03/01/23 18:20 Pulse Ox 93 03/01/23 18:20 O2 Del Method Room Air 03/01/23 18:20 BMI result Body Mass Index 33.1 Appearance: Alert. Oriented X3. No acute distress. Head: normocephalic, atraumatic. Eyes: Pupils equal, round and reactive to light. ENT: Pharynx normal. No tonsillar swelling or exudate. Neck: Normal inspection. Neck supple. CVS: Normal heart rate and rhythm. Pulses normal. Respiratory: No respiratory distress. Breath sounds normal. Abdomen: Soft and nontender. +BS x4 Skin: Skin warm and dry. Normal skin color. Normal skin turgor. No rashes. Extremities: No lower extremity edema. No joint swelling. no tremor Neuro/psych: Oriented X 3. No motor deficit. No sensory deficit. CN II-XII intact. Normal speech and cognition. No SI or HI Const: General: cooperative, comfortable and no acute distress Orientation/consciousness: patient oriented x3 Limitations: no limitations HEENT: Head: Yes normal to inspection, Yes normocephalic and Yes atraumatic Neuro: General: patient oriented x3 Course Reevaluation(s) Reevaluation #1: Physician observation started at 23:57. Patient placed in physician observation because patient is awaiting detox bed which is available at [facility] in the morning. will monitor for s/sxs of wtihdrawal. At the time observation was started patient's vital signs were stable. Patient is alert and oriented. Neuro exam is non-focal. CV: RRR and lungs are clear. Will continue to monitor. Time: 23:57 Medications Administered Generic Name Dose Route Start Last Admin Trade Name Freq PRN Reason Stop Dose Admin Cefuroxime Axetil 250 mg 03/01/23 21:00 03/01/23 21:12 Cefuroxime Axetil 250 Mg Tablet PO 250 mg BID MYRA Administration Discontinued Medications Generic Name Dose Route Start Last Admin Trade Name Freq PRN Reason Stop Dose Admin Lorazepam 1 mg 03/01/23 22:55 03/01/23 23:18 Lorazepam 1 Mg Tablet PO 03/01/23 22:56 1 mg ONCE ONE Administration Medical Decision Making Medical Decision Making MDM Narrative: 57 yo homeless female with history of ETOH use disorder who was just seen here for the same and discharged at midnight who presents to the ER via EMS seeking detox after she drank alcohol. VSS. spoke w/ care team and patient has a bed tomorrow at [facility]. will monitor overnight and plan to d/c there in the morning. will monitor for signs and symptoms of withdrawal. 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 03/01/23 21:05 03/01/23 21:05 Labs: Lab Results 03/01/23 03/01/23 03/01/23 Range/Units 19:36 19:36 21:05 WBC 6.7 (4.8-10.8) X10*3/uL RBC 3.83 L (4.20-5.50) X10*6/uL Hgb 11.8 L (12.0-16.0) g/dl Hct 35.7 L (37.0-47.0) % MCV 93.2 (80.0-98.0) fL MCH 30.8 (27.0-33.0) pg MCHC 33.1 (31.0-35.0) g/dl RDW 14.3 (11.0-16.0) % Plt Count 265 (160-400) X10*3/uL MPV 9.6 (9.4-12.3) fL Immature Gran % (Auto) 0.3 (0.0-0.4) % Neut % (Auto) 46.5 (45-73) % Lymph % (Auto) 38.9 (20-40) % [place] % (Auto) 11.5 H (2-11) % Eos % (Auto) 2.4 (0-4) % Baso % (Auto) 0.4 (0-2) % Lymph # (Auto) 2.6 (1.2-4.9) X10*3/uL [place] # (Auto) 0.8 (0.1-1.2) X10*3/uL Eos # (Auto) 0.2 (0.0-0.4) X10*3/uL Baso # (Auto) 0.0 (0.0-0.2) X10*3/uL Abs Immat Gran (auto) 0.02 (0.00-0.03) X10*3/uL Absolute Neuts (auto) 3.1 (2.0-8.3) x10*3/uL Absolute Nucleated RBC 0.000 (0.0-0.012) X10*3/uL Nucleated RBC % (auto) 0.0 (0.0-0.2) /100WBC Sodium (135-145) mmol/L Potassium (3.3-5.1) mmol/L Chloride (96-108) mmol/L Carbon Dioxide (22-29) mmol/L Anion Gap (12-20) BUN (9-16) mg/dL Creatinine (0.5-1.4) mg/dL Estim Creat Clear Calc Estimated GFR Random Glucose (60-115) mg/dL Calcium (8.4-10.2) mg/dL Total Bilirubin (0.0-1.0) mg/dL AST (5-31) U/L ALT (0-31) U/L Alkaline Phosphatase (39-117) U/L Total Protein (6.5-8.0) g/dL Albumin (3.5-5.0) g/dL Urine Color Dark Yellow Urine Appearance Turbid Urine pH 5.5 (5.0-9.0) Ur Specific [place] 1.020 (1.005-1.025) Urine Protein 300 (3+) H (Neg-Trace) mg/dL Urine Glucose (UA) Negative (Negative) mg/dL Urine Ketones 15 (Negative) mg/dL Urine Blood Moderate (2+) H (Negative) Urine Nitrite Negative (Negative) Ur Leukocyte Esterase Large (3+) H (Negative) Urine RBC 11-20 H (0-2) /HPF Urine WBC >50 H (0-5) /HPF Ur Squamous Epith Cells 0-2 (0-2) /HPF Urine Bacteria Trace (None Seen) Hyaline Casts 11-20 (0-2) /LPF Urine Opiates Screen Not Detected (Not Detect) Urine Fentanyl Screen Not Detected (Not Detect) Ur Barbiturates Screen POSITIVE H (Not Detect) Ur Phencyclidine Scrn Not Detected (Not Detect) Ur Amphetamines Screen Not Detected (Not Detect) U Benzodiazepines Scrn Not Detected (Not Detect) Urine Cocaine Screen Not Detected (Not Detect) U Marijuana (THC) Screen Not Detected (Not Detect) Ethyl Alcohol mg/dL 03/01/23 Range/Units 21:05 WBC (4.8-10.8) X10*3/uL RBC (4.20-5.50) X10*6/uL Hgb (12.0-16.0) g/dl Hct (37.0-47.0) % MCV (80.0-98.0) fL MCH (27.0-33.0) pg MCHC (31.0-35.0) g/dl RDW (11.0-16.0) % Plt Count (160-400) X10*3/uL MPV (9.4-12.3) fL Immature Gran % (Auto) (0.0-0.4) % Neut % (Auto) (45-73) % Lymph % (Auto) (20-40) % [place] % (Auto) (2-11) % Eos % (Auto) (0-4) % Baso % (Auto) (0-2) % Lymph # (Auto) (1.2-4.9) X10*3/uL [place] # (Auto) (0.1-1.2) X10*3/uL Eos # (Auto) (0.0-0.4) X10*3/uL Baso # (Auto) (0.0-0.2) X10*3/uL Abs Immat Gran (auto) (0.00-0.03) X10*3/uL Absolute Neuts (auto) (2.0-8.3) x10*3/uL Absolute Nucleated RBC (0.0-0.012) X10*3/uL Nucleated RBC % (auto) (0.0-0.2) /100WBC Sodium 141 (135-145) mmol/L Potassium 3.6 (3.3-5.1) mmol/L Chloride 103 (96-108) mmol/L Carbon Dioxide 23 (22-29) mmol/L Anion Gap 19 (12-20) BUN 17 H (9-16) mg/dL Creatinine 1.00 (0.5-1.4) mg/dL Estim Creat Clear Calc 57.7 Estimated GFR 57 Random Glucose 108 (60-115) mg/dL Calcium 10.3 H (8.4-10.2) mg/dL Total Bilirubin 1.1 H (0.0-1.0) mg/dL AST 28 (5-31) U/L ALT 20 (0-31) U/L Alkaline Phosphatase 89 (39-117) U/L Total Protein 8.0 (6.5-8.0) g/dL Albumin 4.2 (3.5-5.0) g/dL Urine Color Urine Appearance Urine pH (5.0-9.0) Ur Specific [place] (1.005-1.025) Urine Protein (Neg-Trace) mg/dL Urine Glucose (UA) (Negative) mg/dL Urine Ketones (Negative) mg/dL Urine Blood (Negative) Urine Nitrite (Negative) Ur Leukocyte Esterase (Negative) Urine RBC (0-2) /HPF Urine WBC (0-5) /HPF Ur Squamous Epith Cells (0-2) /HPF Urine Bacteria (None Seen) Hyaline Casts (0-2) /LPF Urine Opiates Screen (Not Detect) Urine Fentanyl Screen (Not Detect) Ur Barbiturates Screen (Not Detect) Ur Phencyclidine Scrn (Not Detect) Ur Amphetamines Screen (Not Detect) U Benzodiazepines Scrn (Not Detect) Urine Cocaine Screen (Not Detect) U Marijuana (THC) Screen (Not Detect) Ethyl Alcohol 86 mg/dL Independent Historian Clinical information obtained from an independent historian. History obtained from or confirmed by: EMS External Record Review External record reviewed: Outpatient record, Prior outpatient labs and Prior outpatient radiology Prescription Management I considered prescription management with: Antibiotic and Other (ativan) Chronic Conditions Patient?s care impacted by: Other (etoh use disorder) Social Determinants Patient?s care significantly limited by Social Determinants of Health including: Inadequate housing, Alcoholism and drug addiction in family and Other Social Determinant of Health Critical Care Time Critical Care Time Critical Care Time: No Discharge Plan Discharge Clinical Impression: Alcohol dependence Patient Disposition: Still a Patient Instructions: Alcohol Dependence (ED) Additional Instructions: present directly to [facility] for detox do not drink alcohol or use drugs follow up with your primary care doctor If you develop new or worsening symptoms call 911 or come back to the ER for further evaluation. Prescriptions: No Action multivitamin Tablet 1 tab PO DAILY fluticasone propionate 50 mcg/actuation spray,suspension 1 spray intranasal DAILY Vivitrol 380 mg suspension,extended rel recon 380 mg IM Q4W clonidine HCl 0.1 mg tablet 0.1 mg PO BID Qty: 60 0RF loratadine 10 mg capsule 10 mg PO DAILY Qty: 30 0RF melatonin 5 mg capsule 5 mg PO .qhs Qty: 30 0RF propranolol 10 mg tablet 10 mg PO TID Qty: 90 0RF quetiapine 50 mg tablet 150 mg PO BEDTIME Qty: 90 0RF sertraline 50 mg tablet 50 mg PO .qhs Qty: 30 0RF cefuroxime axetil 500 mg tablet 500 mg PO BID Qty: 14 0RF Referrals: Shane Reina PA-C [Primary Care Provider] - Interventions: [place]-Suicide Risk Severity Scale Last Done: 03/01/23 22:00
--- NOTE | 2023-03-01 22:10 | MHC.CARE ---
Pt came back to [facility] ED after being discharged earlier in the day. Pt is denying SI/HI/AVH. She is here due to intoxication. Per the Recovery team note, the pt has a bed at [facility] for tomorrow. Pt was supposed to be staying with a friend billy, but it appears that this plan did not work out. Pt will be discharged to [facility] tomorrow morning. A re-referral was never made for the CARE Team to see this pt again. She would be considered an MSU at this point in time.
--- NOTE | 2023-03-02 10:01 | MHC.RECOVRN ---
Met with pt in [facility] after pt represented to the ED after using alcohol last night. Spoke with Serg Dupree from [facility], will be updated soon with bed availability. RN aware.
--- NOTE | 2023-03-02 10:12 | MHC.RECOVRN ---
Updated paperwork faxed to [facility].
--- NOTE | 2023-03-02 11:16 | MHC.RECOVRN ---
Unfortunately [facility] does not have bed availbility at this moment. Per [facility] rep, bed availability may change throughout the day and pt will receive first female bed available. [facility] [place] to continue awaiting placement. Bus passes provided. Discussed with ED provider and RN.
== END 2023-03-02 11:22 | disposition home or self-care (01) ==
PROVIDERS: Emergency Provider Internal Medicine; PCP Physician Assistant
DX: F10.20 Alcohol dependence, uncomplicated (principal); Y90.4 Blood alcohol level of 80-99 mg/100 ml; Z87.820 Personal history of traumatic brain injury; Z79.899 Other long term (current) drug therapy
CPT/HCPCS: 36415; 80053; 80307; 81001; 85025; 99284; 99285

== ENCOUNTER 2023-03-02 18:35 | Emergency (ER) | payer OTHER, SELFPAY ==
[2023-03-02 18:46] VITALS: BP 136/77; PULSE 76; RESP 18; TEMP 36.8; O2SAT 96; BMI 34.2
--- NOTE | 2023-03-02 19:40 | ED.PSYCH ---
HPI - Psych General Chief Complaint: Psychiatric Symptoms Stated Complaint: ETOH, SI Time Seen by Provider: 03/02/23 19:40 Source: patient, EMS and old records reviewed Mode of arrival: EMS Limitations: no limitations History of Present Illness HPI Narrative: 57 yo female with history of ETOH use disorder, HTN, history of recurrent UTI with hisotry of E. coli bacteremia in January who presents to the ER via EMS for evaluation of depression, ETOH use and overdose of propanolol. Patient states she took 4 tablets of her propanolol about an hour prior to arrival due to frustration about not getting into [facility] for alcohol detox that was supposed to happen today. She was just discharged from the ER this morning with plan to go to [facility] when a bed was available. She states this never happened and the hospital dropped the ball. She states she feels fine and just wants to sleep. She is not suicidal, just frustrated with her current situation. She admits to drinking 2-3 beers today and 2-3 shots. MD complaint: suicidal ideation, feels depressed and alcohol abuse Duration: constant, changing over time and getting worse History of same: Yes Exacerbating factors: alcohol Context: recent alcohol abuse Associated psychiatric symptoms: depression and suicidal ideation Treatments prior to arrival: placed on mental health hold If self harm: admits thoughts of self harm, has plan and has acted on plan Related Data Home Medications Medication Instructions Recorded Confirmed naltrexone microspheres 380 mg 380 mg IM Q4W 02/16/23 03/02/23 intramuscular suspension,extended release (Vivitrol) multivitamin 1 tab PO DAILY 02/27/23 03/02/23 clonidine HCl 0.1 mg tablet 0.1 mg PO BID 03/02/23 03/02/23 melatonin 5 mg tablet 5 mg PO BEDTIME 03/02/23 03/02/23 propranolol 10 mg tablet 10 mg PO TID 03/02/23 03/02/23 quetiapine 50 mg tablet 150 mg PO BEDTIME 03/02/23 03/02/23 sertraline 50 mg tablet 50 mg PO DAILY 03/02/23 03/02/23 Allergies Allergy/AdvReac Type Severity Reaction Status Date / Time No Known Allergies Allergy Verified 01/30/23 22:14 [No Known Allergies*] Review of Systems Review of Systems: Yes all other systems are reviewed and are negative PMFSH Past Medical History Medical History Depression ETOH abuse Mood disorder as late effect of traumatic brain injury Rash TBI (traumatic brain injury) Surgical History Hx of cystoscopy Social History Social History Household Members: Unknown / Unable to assess Household Members Other:: Reports has been couch surfing. Housing: Apartment Unable to assess alcohol history related to: Unknown Alcohol intake: never Patient Tobacco Use Status: Never used Tobacco e-Cigarette/Vaping Use: Never Used Second Hand Smoke Exposure: No Substance Use Type: Caffiene Advance Directives: Yes Advance Directives on File: Yes Advance Directives Date on File: 05/06/21 service: No Current occupational status: disabled Sexual orientation: Straight/Heterosexual Physical Exam Vital Signs: Vital Signs: Last Vital Signs Temp 97.6 F 03/02/23 22:00 Pulse 84 03/02/23 22:00 Resp 16 03/02/23 22:00 BP 116/51 L 03/02/23 22:00 Pulse Ox 96 03/02/23 22:00 O2 Del Method Room Air 03/02/23 22:00 BMI result Body Mass Index 34.2 Appearance: Alert. Oriented X3. No acute distress. Head: normocephalic, atraumatic. Eyes: Pupils equal, round and reactive to light. ENT: Pharynx normal. No tonsillar swelling or exudate. Neck: Normal inspection. Neck supple. CVS: Normal heart rate and rhythm. Pulses normal. Respiratory: No respiratory distress. Breath sounds normal. Abdomen: Soft and nontender. +BS x4 Skin: Skin warm and dry. Normal skin color. Normal skin turgor. No rashes. Extremities: No lower extremity edema. No joint swelling. Neuro/psych: Oriented X 3. No motor deficit. No sensory deficit. CN II-XII intact. Normal speech and cognition. No SI, HI, AH, VH, no tremor. makes eye contact and speaks in complete sentences. Course Reevaluation(s) Reevaluation #1: Physician observation started at 23:00. It has been 5-6 hours since her reported ingestion. Her blood pressure and pulse remained normal. Patient placed in physician observation because patient is awaiting CARE team evaluation for the possible need of inpatient psych admission. At the time observation was started patient's vital signs were stable. Patient is alert and oriented. Neuro exam is non-focal. CV: RRR and lungs are clear. Will continue to monitor. Time: 00:15 Medications Administered Generic Name Dose Route Start Last Admin Trade Name Jeq PRN Reason Stop Dose Admin Cefuroxime Axetil 250 mg 03/02/23 21:00 03/02/23 22:13 Cefuroxime Axetil 250 Mg Tablet PO 250 mg BID MYRA Administration Medical Decision Making Medical Decision Making [facility] Narrative: 57-year-old female with history of alcohol use disorder, recurrent UTIs, multiple recent visits to the emergency department for alcohol use disorder who presents back today with a reported propranolol overdose in the setting of not being able to be placed for alcohol detox. Patient expresses frustration with her current situation. She denies wanting to end her life. She states she just wants to sleep. Heart rate and blood pressure are stable on arrival. This was closely monitored in the ER. Half-life of propranolol is 3-5 hours. Her vital signs have remained stable. She is medically cleared at this time. she is pending care team evaluation Differential Diagnosis Differential Diagnoses: The differential diagnosis associated with the presentation includes alcohol intoxication, BB overdose, substance induced mood disorder, acute psychosis, schizophrenia, schizoaffective disorder, PTSD, bipolar disorder, major depression with psychotic features Admission/Observation Consideration of admission/observation: Escalation of care including admission/observation considered Reported betablocker overdose, considered observation/admission Lab Data [facility] Lab Attestation statement: I reviewed the patient's lab results. 03/02/23 22:06 03/02/23 22:06 Labs: Lab Results 03/02/23 03/02/23 03/02/23 Range/Units 17:12 20:01 22:05 WBC (4.8-10.8) X10*3/uL RBC (4.20-5.50) X10*6/uL Hgb (12.0-16.0) g/dl Hct (37.0-47.0) % MCV (80.0-98.0) fL MCH (27.0-33.0) pg MCHC (31.0-35.0) g/dl RDW (11.0-16.0) % Plt Count (160-400) X10*3/uL MPV (9.4-12.3) fL Immature Gran % (Auto) (0.0-0.4) % Neut % (Auto) (45-73) % Lymph % (Auto) (20-40) % [place] % (Auto) (2-11) % Eos % (Auto) (0-4) % Baso % (Auto) (0-2) % Lymph # (Auto) (1.2-4.9) X10*3/uL [place] # (Auto) (0.1-1.2) X10*3/uL Eos # (Auto) (0.0-0.4) X10*3/uL Baso # (Auto) (0.0-0.2) X10*3/uL Abs Immat Gran (auto) (0.00-0.03) X10*3/uL Absolute Neuts (auto) (2.0-8.3) x10*3/uL Absolute Nucleated RBC (0.0-0.012) X10*3/uL Nucleated RBC % (auto) (0.0-0.2) /100WBC Sodium (135-145) mmol/L Potassium (3.3-5.1) mmol/L Chloride (96-108) mmol/L Carbon Dioxide (22-29) mmol/L Anion Gap (12-20) BUN (9-16) mg/dL Creatinine (0.5-1.4) mg/dL Estim Creat Clear Calc Estimated GFR Random Glucose (60-115) mg/dL Calcium (8.4-10.2) mg/dL Magnesium (1.6-2.6) mg/dL Total Bilirubin (0.0-1.0) mg/dL Direct Bilirubin (0.0-0.5) mg/dL AST (5-31) U/L ALT (0-31) U/L Alkaline Phosphatase (39-117) U/L Total Protein (6.5-8.0) g/dL Albumin (3.5-5.0) g/dL Urine Color Yellow Urine Appearance Clear Urine pH 6.0 (5.0-9.0) Ur Specific [place] <= 1.005 (1.005-1.025) Urine Protein Negative (Neg-Trace) mg/dL Urine Glucose (UA) Negative (Negative) mg/dL Urine Ketones Negative (Negative) mg/dL Urine Blood Negative (Negative) Urine Nitrite Negative (Negative) Ur Leukocyte Esterase Large (3+) H (Negative) Urine RBC 0-2 (0-2) /HPF Urine WBC >50 H (0-5) /HPF Ur Squamous Epith Cells 0-2 (0-2) /HPF Urine Bacteria None Seen (None Seen) Hyaline Casts 0-2 (0-2) /LPF Salicylates (15-30) mg/dL Urine Opiates Screen Not Detected (Not Detect) Urine Fentanyl Screen Not Detected (Not Detect) Acetaminophen (<30) mcg/mL Ur Barbiturates Screen Not Detected (Not Detect) Ur Phencyclidine Scrn Not Detected (Not Detect) Ur Amphetamines Screen Not Detected (Not Detect) U Benzodiazepines Scrn Not Detected (Not Detect) Urine Cocaine Screen Not Detected (Not Detect) U Marijuana (THC) Screen Not Detected (Not Detect) Ethyl Alcohol 128 mg/dL 03/02/23 03/02/23 03/02/23 Range/Units 22:06 22:06 22:06 WBC 6.2 (4.8-10.8) X10*3/uL RBC 3.64 L (4.20-5.50) X10*6/uL Hgb 11.2 L (12.0-16.0) g/dl Hct 34.3 L (37.0-47.0) % MCV 94.2 (80.0-98.0) fL MCH 30.8 (27.0-33.0) pg MCHC 32.7 (31.0-35.0) g/dl RDW 14.3 (11.0-16.0) % Plt Count 263 (160-400) X10*3/uL MPV 10.0 (9.4-12.3) fL Immature Gran % (Auto) 0.2 (0.0-0.4) % Neut % (Auto) 34.3 L (45-73) % Lymph % (Auto) 48.2 H (20-40) % [place] % (Auto) 11.7 H (2-11) % Eos % (Auto) 5.0 H (0-4) % Baso % (Auto) 0.6 (0-2) % Lymph # (Auto) 3.0 (1.2-4.9) X10*3/uL [place] # (Auto) 0.7 (0.1-1.2) X10*3/uL Eos # (Auto) 0.3 (0.0-0.4) X10*3/uL Baso # (Auto) 0.0 (0.0-0.2) X10*3/uL Abs Immat Gran (auto) 0.01 (0.00-0.03) X10*3/uL Absolute Neuts (auto) 2.1 (2.0-8.3) x10*3/uL Absolute Nucleated RBC 0.000 (0.0-0.012) X10*3/uL Nucleated RBC % (auto) 0.0 (0.0-0.2) /100WBC Sodium 142 (135-145) mmol/L Potassium 3.6 (3.3-5.1) mmol/L Chloride 107 (96-108) mmol/L Carbon Dioxide 23 (22-29) mmol/L Anion Gap 16 (12-20) BUN 11 (9-16) mg/dL Creatinine 0.76 (0.5-1.4) mg/dL Estim Creat Clear Calc 74.3 Estimated GFR > 60 Random Glucose 112 (60-115) mg/dL Calcium 9.7 (8.4-10.2) mg/dL Magnesium 1.9 (1.6-2.6) mg/dL Total Bilirubin 0.6 (0.0-1.0) mg/dL Direct Bilirubin 0.2 (0.0-0.5) mg/dL AST 28 (5-31) U/L ALT 21 (0-31) U/L Alkaline Phosphatase 79 (39-117) U/L Total Protein 7.4 (6.5-8.0) g/dL Albumin 4.0 (3.5-5.0) g/dL Urine Color Urine Appearance Urine pH (5.0-9.0) Ur Specific [place] (1.005-1.025) Urine Protein (Neg-Trace) mg/dL Urine Glucose (UA) (Negative) mg/dL Urine Ketones (Negative) mg/dL Urine Blood (Negative) Urine Nitrite (Negative) Ur Leukocyte Esterase (Negative) Urine RBC (0-2) /HPF Urine WBC (0-5) /HPF Ur Squamous Epith Cells (0-2) /HPF Urine Bacteria (None Seen) Hyaline Casts (0-2) /LPF Salicylates < 5.0 L (15-30) mg/dL Urine Opiates Screen (Not Detect) Urine Fentanyl Screen (Not Detect) Acetaminophen < 17 (<30) mcg/mL Ur Barbiturates Screen (Not Detect) Ur Phencyclidine Scrn (Not Detect) Ur Amphetamines Screen (Not Detect) U Benzodiazepines Scrn (Not Detect) Urine Cocaine Screen (Not Detect) U Marijuana (THC) Screen (Not Detect) Ethyl Alcohol mg/dL Independent Historian Clinical information obtained from an independent historian. History obtained from or confirmed by: EMS External Record Review External record reviewed: Outpatient record, Prior outpatient labs and Prior outpatient radiology Prescription Management I considered prescription management with: Antibiotic (current UTI) Chronic Conditions Patient?s care impacted by: Hypertension and Other (etoh abuse) Critical Care Time Critical Care Time Critical Care Time: Yes Total Critical Care Time: 35 Attestation: I have personally provided critical care time exclusive of time spent on separately billable procedures. Time includes review of lab data, frequent bedside assessment of hemodynamic status, discussion with consultants, and monitoring for potential decompensation. Intervention performed as documented. Discharge Plan Discharge Clinical Impression: Suicide attempt by beta lanette overdose, Alcohol intoxication Patient Disposition: Still a Patient Prescriptions: No Action multivitamin Tablet 1 tab PO DAILY clonidine HCl 0.1 mg tablet 0.1 mg PO BID propranolol 10 mg tablet 10 mg PO TID sertraline 50 mg tablet 50 mg PO DAILY quetiapine 50 mg tablet 150 mg PO BEDTIME melatonin 5 mg tablet 5 mg PO BEDTIME Vivitrol 380 mg suspension,extended rel recon 380 mg IM Q4W Interventions: [place]-Suicide Risk Severity Scale Last Done: 03/02/23 23:03
[2023-03-02 19:53] VITALS: BP 106/54; PULSE 87; RESP 16; TEMP 36.5; O2SAT 96
[2023-03-02 22:00] VITALS: BP 116/51; PULSE 84; RESP 16; TEMP 36.4; O2SAT 96
[2023-03-02 22:51] LABS: Alanine Aminotransferase 21 U/L (0-31); Alkaline Phosphatase 79 U/L (39-117); Anion Gap 16 (12-20); Aspartate Amino Transferase 28 U/L (5-31); Bilirubin Direct 0.2 mg/dL (0.0-0.5); Bilirubin Total 0.6 mg/dL (0.0-1.0); Blood Urea Nitrogen 11 mg/dL (9-16); Calcium 9.7 mg/dL (8.4-10.2); Carbon Dioxide 23 mmol/L (22-29); Chloride 107 mmol/L (96-108); Creatinine Clr Calc Pharmacy 74.3; Estimated Glomerular Filt Rate > 60; Glucose Random 112 mg/dL (60-115); Magnesium 1.9 mg/dL (1.6-2.6); Potassium 3.6 mmol/L (3.3-5.1); Sodium 142 mmol/L (135-145); Total Protein 7.4 g/dL (6.5-8.0)
--- NOTE | 2023-03-03 06:39 | PC.NURSE ---
Patient slept through the night, no distress observed/reported, care consult for Suicidality, pending evaluation, med rec completed/pending provider's approval, behavior non concerning, asymptomatic of ETOH withdrawal, will continue to monitor.
[2023-03-03 06:44] VITALS: BP 131/65; PULSE 76; RESP 16; TEMP 36.4; O2SAT 96
--- NOTE | 2023-03-03 07:34 | PC.NURSE ---
PT SLEEPING AT THIS TIME. AWAITING CARE TEAM CARRILLO
--- NOTE | 2023-03-03 16:34 | MHC.CARE ---
Pt presented intoxicated and made vague suicidal statements while under the influence of alcohol. Pt clinically sober and denies any SI, reports was supposed to have a bed at [facility]. Consult done with Dr. Kamara and referral was made to recovery team.
== END 2023-03-03 11:54 | disposition home or self-care (01) ==
PROVIDERS: Physician Assistant; Emergency Provider Internal Medicine
DX: R45.851 Suicidal ideations (principal); F10.129 Alcohol abuse with intoxication, unspecified; Y90.6 Blood alcohol level of 120-199 mg/100 ml; Z87.440 Personal history of urinary (tract) infections; Z79.899 Other long term (current) drug therapy
CPT/HCPCS: 36415; 80048; 80076; 80143; 80179; 80307; 81001; 83735; 85025; 99284

== ENCOUNTER 2023-03-10 14:48 | Emergency (ER) | payer OTHER, SELFPAY ==
[2023-03-10 14:55] VITALS: BP 141/78; BP 141/88; PULSE 86; PULSE 97; RESP 18; TEMP 37; O2SAT 98; O2SAT 99; BMI 29.3
--- NOTE | 2023-03-10 15:49 | ED_ITS ---
HPI - General Adult General Chief complaint: ETOH/Substance Use Stated complaint: etoh use,calm/coop per ems Time Seen by Provider: 03/10/23 15:07 Source: patient Mode of arrival: EMS Limitations: no limitations History of Present Illness HPI narrative: 57-year-old female with history of alcohol abuse presents for concerns regarding urinary tract infection. Patient reports lower abdominal pain and discomfort with some urinary complaints. She reports taking antibiotics typically which is Bactrim. She has had no fevers or chills. No back pain. No nausea vomiting. There is no clear relieving or exacerbating features. She does not believe her antibiotics are working. Patient does admit to drinking alcohol today. She did reports having had 3 beers. She read denies any hard alcohol drink. She is attempting to get in to a detox and treatment program. Patient denies SI, HI, additional intoxicants. Related Data Home Medications Medication Instructions Recorded Confirmed naltrexone microspheres 380 mg 380 mg IM Q4W 02/16/23 03/02/23 intramuscular suspension,extended release (Vivitrol) multivitamin 1 tab PO DAILY 02/27/23 03/02/23 clonidine HCl 0.1 mg tablet 0.1 mg PO BID 03/02/23 03/02/23 melatonin 5 mg tablet 5 mg PO BEDTIME 03/02/23 03/02/23 propranolol 10 mg tablet 10 mg PO TID 03/02/23 03/02/23 quetiapine 50 mg tablet 150 mg PO BEDTIME 03/02/23 03/02/23 sertraline 50 mg tablet 50 mg PO DAILY 03/02/23 03/02/23 Previous Rx's Medication Instructions Recorded cephalexin 500 mg capsule 500 mg PO BID #14 caps 03/10/23 phenazopyridine 200 mg tablet 200 mg PO TID PRN pain #6 tabs 03/10/23 (Pyridium) Allergies Allergy/AdvReac Type Severity Reaction Status Date / Time No Known Allergies Allergy Verified 01/30/23 22:14 [No Known Allergies*] Review of Systems Review of Systems: CONSTITUTIONAL: Denies weight loss, fever and chills. HEENT: Denies changes in vision and hearing. RESPIRATORY: Denies SOB and cough. CV: Denies palpitations no CP. GI: Denies abdominal pain, nausea, vomiting and diarrhea. : + dysuria and urinary frequency. MSK: Denies myalgia and joint pain. SKIN: Denies rash and pruritus. NEUROLOGICAL: Denies headache and syncope. PSYCHIATRIC: Denies recent changes in mood. Denies anxiety and depression. All other ROS are negative unless in HPI PMFSH Past Medical History Medical History Depression ETOH abuse Mood disorder as late effect of traumatic brain injury Rash TBI (traumatic brain injury) Surgical History Hx of cystoscopy Social History Social History Household Members: Unknown / Unable to assess Household Members Other:: Reports has been [employer] surfing. Housing: Apartment Unable to assess alcohol history related to: Unknown Alcohol intake: never Patient Tobacco Use Status: Never used Tobacco e-Cigarette/Vaping Use: Never Used Second Hand Smoke Exposure: No Substance Use Type: Caffiene Advance Directives: Yes Advance Directives on File: Yes Advance Directives Date on File: 05/06/21 service: No Current occupational status: disabled Sexual orientation: Straight/Heterosexual Physical Exam ED Vital Signs: Vital Signs - 24 hr 03/10/23 14:55 Temperature 98.6 F Pulse Rate 97 Respiratory Rate 18 Blood Pressure 141/78 H Pulse Oximetry 99 Oxygen Delivery Method Room Air BMI result Body Mass Index 29.3 GEN: Well developed, no acute distress, alert, oriented HEENT: Normocephalic, atraumatic, normal external ears, nose appears normal, no oropharyngeal edema or exudates Eyes: Normal to appearance Neck: Supple, no lymphadenopathy Respiratory: Talks in complete sentences, no respiratory distress, clear to auscultation bilaterally Cardiovascular: Regular rate and rhythm, no murmurs rubs or gallops Abdomen: Soft, nontender, nondistended, no guarding, no rebound Back: No CVA tenderness Extremities: No clubbing cyanosis or edema Neurologic: No focal neurologic deficits, cranial nerves 2-12 intact, strength is 5/5 bilaterally Skin: No rash Course Reevaluation(s) Reevaluation #1: Patient is clinically sober. She is able to ambulate without significant difficulty. She would like to be discharged at this time. She appears to have decision making capacity. I cannot hold the patient against her will at this time. Will discharge patient with antibiotic treatment. She has follow-up r egarding alcohol abuse. Time: 16:32 Medical Decision Making Medical Decision Making [facility] Narrative: 57-year-old female presents with urinary complaints and pelvic discomfort. E xamination is benign. Differential diagnosis includes bladder spasm, UTI, IBD, IBS. Plan to check routine laboratory analysis, screen for alcohol and drug abuse, take a urine sample for urinalysis. Will re-evaluate patient following results. Differential Diagnosis Differential Diagnoses: The differential diagnosis associated with the presentation includes (See above) Admission/Observation Consideration of admission/observation: Escalation of care including admission/observation considered (Determined based on alcohol intoxication level versus desire for detox today.) Lab Data [facility] Lab Attestation statement: I reviewed the patient's lab results. 03/10/23 15:59 03/10/23 15:59 Labs: Lab Results 03/10/23 03/10/23 03/10/23 Range/Units 15:59 15:59 15:59 WBC 5.0 (4.8-10.8) X10*3/uL RBC 3.72 L (4.20-5.50) X10*6/uL Hgb 11.7 L (12.0-16.0) g/dl Hct 35.4 L (37.0-47.0) % MCV 95.2 (80.0-98.0) fL MCH 31.5 (27.0-33.0) pg MCHC 33.1 (31.0-35.0) g/dl RDW 15.2 (11.0-16.0) % Plt Count 236 (160-400) X10*3/uL MPV 9.5 (9.4-12.3) fL Immature Gran % (Auto) 0.2 (0.0-0.4) % Neut % (Auto) 47.1 (45-73) % Lymph % (Auto) 39.8 (20-40) % [place] % (Auto) 9.5 (2-11) % Eos % (Auto) 2.8 (0-4) % Baso % (Auto) 0.6 (0-2) % Lymph # (Auto) 2.0 (1.2-4.9) X10*3/uL [place] # (Auto) 0.5 (0.1-1.2) X10*3/uL Eos # (Auto) 0.1 (0.0-0.4) X10*3/uL Baso # (Auto) 0.0 (0.0-0.2) X10*3/uL Abs Immat Gran (auto) 0.01 (0.00-0.03) X10*3/uL Absolute Neuts (auto) 2.4 (2.0-8.3) x10*3/uL Absolute Nucleated RBC 0.000 (0.0-0.012) X10*3/uL Nucleated RBC % (auto) 0.0 (0.0-0.2) /100WBC Sodium 142 (135-145) mmol/L Potassium 3.3 (3.3-5.1) mmol/L Chloride 106 (96-108) mmol/L Carbon Dioxide 24 (22-29) mmol/L Anion Gap 15 (12-20) BUN 11 (9-16) mg/dL Creatinine 0.98 (0.5-1.4) mg/dL Estim Creat Clear Calc 55.4 Estimated GFR 58 Random Glucose 90 (60-115) mg/dL Calcium 9.6 (8.4-10.2) mg/dL Urine Color Yellow Urine Appearance Clear Urine pH 5.5 (5.0-9.0) Ur Specific [place] <= 1.005 (1.005-1.025) Urine Protein Negative (Neg-Trace) mg/dL Urine Glucose (UA) Negative (Negative) mg/dL Urine Ketones Negative (Negative) mg/dL Urine Blood Negative (Negative) Urine Nitrite Negative (Negative) Ur Leukocyte Esterase Large (3+) H (Negative) Urine RBC 0-2 (0-2) /HPF Urine WBC 21-50 H (0-5) /HPF Ur Squamous Epith Cells 0-2 (0-2) /HPF Urine Bacteria None Seen (None Seen) Hyaline Casts 0-2 (0-2) /LPF Urine Opiates Screen (Not Detect) Urine Fentanyl Screen (Not Detect) Ur Barbiturates Screen (Not Detect) Ur Phencyclidine Scrn (Not Detect) Ur Amphetamines Screen (Not Detect) U Benzodiazepines Scrn (Not Detect) Urine Cocaine Screen (Not Detect) U Marijuana (THC) Screen (Not Detect) Ethyl Alcohol 129 mg/dL 03/10/23 Range/Units 15:59 WBC (4.8-10.8) X10*3/uL RBC (4.20-5.50) X10*6/uL Hgb (12.0-16.0) g/dl Hct (37.0-47.0) % MCV (80.0-98.0) fL MCH (27.0-33.0) pg MCHC (31.0-35.0) g/dl RDW (11.0-16.0) % Plt Count (160-400) X10*3/uL MPV (9.4-12.3) fL Immature Gran % (Auto) (0.0-0.4) % Neut % (Auto) (45-73) % Lymph % (Auto) (20-40) % [place] % (Auto) (2-11) % Eos % (Auto) (0-4) % Baso % (Auto) (0-2) % Lymph # (Auto) (1.2-4.9) X10*3/uL [place] # (Auto) (0.1-1.2) X10*3/uL Eos # (Auto) (0.0-0.4) X10*3/uL Baso # (Auto) (0.0-0.2) X10*3/uL Abs Immat Gran (auto) (0.00-0.03) X10*3/uL Absolute Neuts (auto) (2.0-8.3) x10*3/uL Absolute Nucleated RBC (0.0-0.012) X10*3/uL Nucleated RBC % (auto) (0.0-0.2) /100WBC Sodium (135-145) mmol/L Potassium (3.3-5.1) mmol/L Chloride (96-108) mmol/L Carbon Dioxide (22-29) mmol/L Anion Gap (12-20) BUN (9-16) mg/dL Creatinine (0.5-1.4) mg/dL Estim Creat Clear Calc Estimated GFR Random Glucose (60-115) mg/dL Calcium (8.4-10.2) mg/dL Urine Color Urine Appearance Urine pH (5.0-9.0) Ur Specific [place] (1.005-1.025) Urine Protein (Neg-Trace) mg/dL Urine Glucose (UA) (Negative) mg/dL Urine Ketones (Negative) mg/dL Urine Blood (Negative) Urine Nitrite (Negative) Ur Leukocyte Esterase (Negative) Urine RBC (0-2) /HPF Urine WBC (0-5) /HPF Ur Squamous Epith Cells (0-2) /HPF Urine Bacteria (None Seen) Hyaline Casts (0-2) /LPF Urine Opiates Screen Not Detected (Not Detect) Urine Fentanyl Screen Not Detected (Not Detect) Ur Barbiturates Screen Not Detected (Not Detect) Ur Phencyclidine Scrn Not Detected (Not Detect) Ur Amphetamines Screen Not Detected (Not Detect) U Benzodiazepines Scrn Not Detected (Not Detect) Urine Cocaine Screen Not Detected (Not Detect) U Marijuana (THC) Screen Not Detected (Not Detect) Ethyl Alcohol mg/dL Prescription Management I considered prescription management with: Antibiotic Chronic Conditions Patient?s care impacted by: Other (Alcohol abuse) Discharge Plan Discharge Clinical Impression: Alcohol abuse, Pelvic pain, UTI symptoms Patient Disposition: Home, Self-Care Instructions: Abuse of Alcohol (DC), Urinary Urgency and Frequency (DC) Prescriptions: New cephalexin 500 mg capsule 500 mg PO BID Qty: 14 0RF phenazopyridine [Pyridium] 200 mg tablet 200 mg PO TID PRN (Reason: pain) Qty: 6 0RF No Action multivitamin Tablet 1 tab PO DAILY clonidine HCl 0.1 mg tablet 0.1 mg PO BID propranolol 10 mg tablet 10 mg PO TID sertraline 50 mg tablet 50 mg PO DAILY quetiapine 50 mg tablet 150 mg PO BEDTIME melatonin 5 mg tablet 5 mg PO BEDTIME Vivitrol 380 mg suspension,extended rel recon 380 mg IM Q4W Referrals: Physician,Unknown J [Primary Care Provider] -
[2023-03-10 16:06] LABS: MANUAL DIFF FLAG NO
[2023-03-10 16:09] LABS: Basophils Percent Auto 0.6 % (0-2); Eosinophils Absolute Auto 0.1 X10*3/uL (0.0-0.4); Eosinophils Percent Auto 2.8 % (0-4); Hematocrit 35.4 % (37.0-47.0); Hemoglobin 11.7 g/dl (12.0-16.0); Imm Gran Abs Auto 0.01 X10*3/uL (0.00-0.03); Imm Gran Pct Auto 0.2 % (0.0-0.4); Lymphocytes Percent Auto 39.8 % (20-40); Mean Corpuscular HGB Conc 33.1 g/dl (31.0-35.0); Mean Corpuscular Hemoglobin 31.5 pg (27.0-33.0); Mean Corpuscular Volume 95.2 fL (80.0-98.0); Mean Platelet Volume 9.5 fL (9.4-12.3); Monocytes Absolute Auto 0.5 X10*3/uL (0.1-1.2); Monocytes Percent Auto 9.5 % (2-11); Neutrophils Absolute Auto 2.4 x10*3/uL (2.0-8.3); Neutrophils Percent Auto 47.1 % (45-73); Platelet Count 236 X10*3/uL (160-400); Red Blood Count 3.72 X10*6/uL (4.20-5.50); Red Cell Distribution Width 15.2 % (11.0-16.0)
[2023-03-10 16:13] LABS: Appearance Urine Clear; Color Urine Yellow; Glucose Urine UA Negative (Negative); Leukocyte Esterase Urine Large (3+) (Negative); Nitrite Urine Negative (Negative); PH 5.5 (5.0-9.0); Specific Gravity - Urine <= 1.005 (1.005-1.025); UMIC TRIGGER UACC YES; Urine Blood Negative (Negative); Urine Ketones Negative (Negative); Urine Protein Negative (Neg-Trace)
[2023-03-10 16:21] LABS: Anion Gap 15 (12-20); Blood Urea Nitrogen 11 mg/dL (9-16); Calcium 9.6 mg/dL (8.4-10.2); Carbon Dioxide 24 mmol/L (22-29); Chloride 106 mmol/L (96-108); Creatinine Clr Calc Pharmacy 55.4; Estimated Glomerular Filt Rate 58; Ethanol 129 mg/dL; Glucose Random 90 mg/dL (60-115); Potassium 3.3 mmol/L (3.3-5.1); Sodium 142 mmol/L (135-145)
[2023-03-10 16:23] LABS: Amphetamine Screen Urine Not Detected (Not Detect); Barbiturates, Urine Not Detected (Not Detect); Benzodiazepines Screen Urine Not Detected (Not Detect); Cannabinoid Screen Urine Not Detected (Not Detect); Cocaine Screen Urine Not Detected (Not Detect); Fentanyl, urine Not Detected (Not Detect); Opiate Screen Urine Not Detected (Not Detect); Phencyclidine Screen Urine Not Detected (Not Detect)
[2023-03-10 16:27] LABS: Bacteria Urine None Seen (None Seen); Hyaline Casts Urine 0-2 /LPF (0-2); RBC Urine 0-2 /HPF (0-2); Squamous Epithelial Cell Urine 0-2 /HPF (0-2); UACC Culture Trigger YES; WBC Urine 21-50 /HPF (0-5)
== END 2023-03-10 16:42 | disposition home or self-care (01) ==
PROVIDERS: Emergency Provider Emergency Medicine
DX: N39.0 Urinary tract infection, site not specified (principal); B96.20 Unspecified Escherichia coli [E. coli] as the cause of diseases classified elsewhere; F10.10 Alcohol abuse, uncomplicated; Y90.6 Blood alcohol level of 120-199 mg/100 ml; R10.2 Pelvic and perineal pain; Z79.899 Other long term (current) drug therapy
CPT/HCPCS: 36415; 80048; 80307; 81001; 85025; 87086; 87088; 87186; 99282; 99284

== ENCOUNTER 2023-03-10 21:47 | Emergency (ER) | payer OTHER, SELFPAY ==
[2023-03-10 22:16] VITALS: BP 139/79; BP 158/71; PULSE 74; PULSE 98; RESP 16; TEMP 36.5; O2SAT 97; O2SAT 99; BMI 33.1
[2023-03-10 22:20] VITALS: BP 139/79; PULSE 74; RESP 16; TEMP 36.5; O2SAT 97
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
[2023-03-10 23:00] LABS: Basophils Absolute Auto 0.1 X10*3/uL (0.0-0.2); Basophils Percent Auto 0.7 % (0-2); Eosinophils Absolute Auto 0.2 X10*3/uL (0.0-0.4); Eosinophils Percent Auto 3.3 % (0-4); Hematocrit 35.9 % (37.0-47.0); Hemoglobin 11.8 g/dl (12.0-16.0); Imm Gran Abs Auto 0.02 X10*3/uL (0.00-0.03); Imm Gran Pct Auto 0.3 % (0.0-0.4); Lymphocytes Absolute Auto 3.5 X10*3/uL (1.2-4.9); Lymphocytes Percent Auto 48.8 % (20-40); MANUAL DIFF FLAG NO; Mean Corpuscular HGB Conc 32.9 g/dl (31.0-35.0); Mean Corpuscular Hemoglobin 31.3 pg (27.0-33.0); Mean Corpuscular Volume 95.2 fL (80.0-98.0); Mean Platelet Volume 9.5 fL (9.4-12.3); Monocytes Absolute Auto 0.8 X10*3/uL (0.1-1.2); Monocytes Percent Auto 10.6 % (2-11); Neutrophils Absolute Auto 2.6 x10*3/uL (2.0-8.3); Neutrophils Percent Auto 36.3 % (45-73); Platelet Count 252 X10*3/uL (160-400); Red Blood Count 3.77 X10*6/uL (4.20-5.50); Red Cell Distribution Width 15.3 % (11.0-16.0); White Blood Count 7.3 X10*3/uL (4.8-10.8)
[2023-03-10 23:02] LABS: Appearance Urine Clear; Color Urine Yellow; Glucose Urine UA Negative (Negative); Leukocyte Esterase Urine Moderate (2+) (Negative); Nitrite Urine Negative (Negative); PH 5.5 (5.0-9.0); Specific Gravity - Urine <= 1.005 (1.005-1.025); UMIC TRIGGER UACC YES; Urine Blood Negative (Negative); Urine Ketones Negative (Negative); Urine Protein Negative (Neg-Trace)
[2023-03-10 23:08] LABS: Bacteria Urine None Seen (None Seen); Hyaline Casts Urine 0-2 /LPF (0-2); RBC Urine 0-2 /HPF (0-2); Squamous Epithelial Cell Urine 0-2 /HPF (0-2); UACC Culture Trigger YES; WBC Urine 21-50 /HPF (0-5)
[2023-03-10 23:12] LABS: Amphetamine Screen Urine Not Detected (Not Detect); Barbiturates, Urine Not Detected (Not Detect); Benzodiazepines Screen Urine Not Detected (Not Detect); Cannabinoid Screen Urine Not Detected (Not Detect); Cocaine Screen Urine Not Detected (Not Detect); Fentanyl, urine Not Detected (Not Detect); Opiate Screen Urine Not Detected (Not Detect); Phencyclidine Screen Urine Not Detected (Not Detect)
[2023-03-10 23:13] LABS: Alanine Aminotransferase 18 U/L (0-31); Alkaline Phosphatase 76 U/L (39-117); Anion Gap 15 (12-20); Aspartate Amino Transferase 24 U/L (5-31); Bilirubin Total 0.5 mg/dL (0.0-1.0); Blood Urea Nitrogen 13 mg/dL (9-16); Calcium 9.3 mg/dL (8.4-10.2); Carbon Dioxide 24 mmol/L (22-29); Chloride 107 mmol/L (96-108); Creatinine Clr Calc Pharmacy 67.2; Estimated Glomerular Filt Rate > 60; Ethanol 179 mg/dL; Glucose Random 91 mg/dL (60-115); Potassium 3.6 mmol/L (3.3-5.1); Sodium 142 mmol/L (135-145); Total Protein 7.6 g/dL (6.5-8.0)
--- NOTE | 2023-03-10 23:56 | ED_ITS ---
HPI - Alcohol General Chief Complaint: Psychiatric Symptoms Stated Complaint: etpjOscar si with plan, per ems Time Seen by Provider: 03/10/23 23:33 Source: patient Mode of arrival: EMS History of Present Illness HPI narrative: 57-year-old female with history of alcohol abuse as well as depression and states that she was last in an inpatient detox in December, was feeling much better, stop taking her medication and is since started to relapse with use of alcohol that she limits to be ear, last beer consumption was this afternoon and she reports for beers. At that time that EMS picked her up she made a vague threat of taking some pills to kill herself but at this time denies any suicidal ideation. She is requesting inpatient detox and states that she called [facility] and completed in intake. Related Data Home Medications Medication Instructions Recorded Confirmed naltrexone microspheres 380 mg 380 mg IM Q4W 02/16/23 03/02/23 intramuscular suspension,extended release (Vivitrol) multivitamin 1 tab PO DAILY 02/27/23 03/02/23 clonidine HCl 0.1 mg tablet 0.1 mg PO BID 03/02/23 03/02/23 melatonin 5 mg tablet 5 mg PO BEDTIME 03/02/23 03/02/23 propranolol 10 mg tablet 10 mg PO TID 03/02/23 03/02/23 quetiapine 50 mg tablet 150 mg PO BEDTIME 03/02/23 03/02/23 sertraline 50 mg tablet 50 mg PO DAILY 03/02/23 03/02/23 Previous Rx's Medication Instructions Recorded cephalexin 500 mg capsule 500 mg PO BID #14 caps 03/10/23 phenazopyridine 200 mg tablet 200 mg PO TID PRN pain #6 tabs 03/10/23 (Pyridium) Allergies Allergy/AdvReac Type Severity Reaction Status Date / Time No Known Allergies Allergy Verified 01/30/23 22:14 [No Known Allergies*] Review of Systems Review of Systems: Pertinent positives and negatives as stated in HPI PMFSH Past Medical History Source: nursing notes reviewed Medical History Depression ETOH abuse Mood disorder as late effect of traumatic brain injury Rash TBI (traumatic brain injury) Surgical History Hx of cystoscopy Social History Social History Household Members: Unknown / Unable to assess Household Members Other:: Reports has been couch surfing. Housing: Apartment Unable to assess alcohol history related to: Unknown Alcohol intake: current Alcohol intake frequency: 3 or more drinks per day Alcohol type: beer Patient Tobacco Use Status: Never used Tobacco Smoked in Last 30 Days: No e-Cigarette/Vaping Use: Never Used Second Hand Smoke Exposure: No Use of substances other than those prescribed or required for medical reasons: No Substance Use Type: Caffiene Advance Directives: Yes Advance Directives on File: Yes Advance Directives Date on File: 05/06/21 Patient : No service: No Current occupational status: disabled Sexual orientation: Straight/Heterosexual Physical Exam ED Vital Signs: Vital Signs - 24 hr 03/10/23 22:16 03/10/23 22:20 Temperature 97.7 F 97.7 F Pulse Rate 74 74 Respiratory Rate 16 16 Blood Pressure 139/79 139/79 Pulse Oximetry 97 97 Oxygen Delivery Method Room Air Room Air BMI result Body Mass Index 33.1 VITAL SIGNS: Reviewed. GENERAL: Well developed, well nourished, in no acute distress. HEAD: Normocephalic/atraumatic EYES: PERRLA, EOMI EARS: Ext canals without abnormality NOSE: Nares patent bilateral OROPHARYNX: no oral lesions noted, posterior pharynx clear NECK: Supple, no adenopathy LUNGS: Normal breath sounds. No adventitious sounds or accessory muscle use. SpO2<97> CARDIOVASCULAR: Regular rate and rhythm without noted murmurs ABDOMEN: Soft, non-tender, non-distended with bowel sounds. MUSCULOSKELETAL: No tenderness, deformities, or effusions noted on gross inspection. EXTREMITIES: No cyanosis, clubbing or edema. SKIN: Inspection of the skin reveals no rashes NEUROLOGIC: Alert and oriented x 4. Strength and sensation to light touch were grossly intact x 4. Medical Decision Making Medical Decision Making MDM Narrative: 57-year-old female who presents with request for inpatient detox, she was seen here earlier in the day for a urinary tract infection and on review of prior microbiology results she appears to have extended spectrum beta lactamase E coli infections that appear to be sensitive to Bactrim and will initiate patient on Bactrim at this time. Otherwise, I reviewed all lab work which is consistent with her visit earlier today does not show any leukocytosis or left shift in patient has a chronically stable normocytic anemia without thrombocytopenia. Chemistry indices are grossly within normal limits without any derangements of electrolytes, renal function or liver function. Urinalysis demonstrates moderate leukocyte esterase with wbc's. UDS is negative for presence of illicit substances but BAL-179. Patient is otherwise medically cleared for further evaluation by the recovery team for inpatient placement for alcohol detox. 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 At the time observation was started the patient's vital signs were stable, patient is alert and oriented, neuro: Nonfocal, CV RRR, lungs clear Differential Diagnosis Differential Diagnoses: The differential diagnosis associated with the presentation includes Please see the discussion above Lab Data MDM Lab Attestation statement: I reviewed the patient's lab results. Please see the discussion above 03/10/23 22:54 03/10/23 22:54 Labs: Lab Results 03/10/23 03/10/23 03/10/23 Range/Units 22:28 22:28 22:54 WBC 7.3 (4.8-10.8) X10*3/uL RBC 3.77 L (4.20-5.50) X10*6/uL Hgb 11.8 L (12.0-16.0) g/dl Hct 35.9 L (37.0-47.0) % MCV 95.2 (80.0-98.0) fL MCH 31.3 (27.0-33.0) pg MCHC 32.9 (31.0-35.0) g/dl RDW 15.3 (11.0-16.0) % Plt Count 252 (160-400) X10*3/uL MPV 9.5 (9.4-12.3) fL Immature Gran % (Auto) 0.3 (0.0-0.4) % Neut % (Auto) 36.3 L (45-73) % Lymph % (Auto) 48.8 H (20-40) % [place] % (Auto) 10.6 (2-11) % Eos % (Auto) 3.3 (0-4) % Baso % (Auto) 0.7 (0-2) % Lymph # (Auto) 3.5 (1.2-4.9) X10*3/uL [place] # (Auto) 0.8 (0.1-1.2) X10*3/uL Eos # (Auto) 0.2 (0.0-0.4) X10*3/uL Baso # (Auto) 0.1 (0.0-0.2) X10*3/uL Abs Immat Gran (auto) 0.02 (0.00-0.03) X10*3/uL Absolute Neuts (auto) 2.6 (2.0-8.3) x10*3/uL Absolute Nucleated RBC 0.000 (0.0-0.012) X10*3/uL Nucleated RBC % (auto) 0.0 (0.0-0.2) /100WBC Sodium (135-145) mmol/L Potassium (3.3-5.1) mmol/L Chloride (96-108) mmol/L Carbon Dioxide (22-29) mmol/L Anion Gap (12-20) BUN (9-16) mg/dL Creatinine (0.5-1.4) mg/dL Estim Creat Clear Calc Estimated GFR Random Glucose (60-115) mg/dL Calcium (8.4-10.2) mg/dL Total Bilirubin (0.0-1.0) mg/dL AST (5-31) U/L ALT (0-31) U/L Alkaline Phosphatase (39-117) U/L Total Protein (6.5-8.0) g/dL Albumin (3.5-5.0) g/dL Urine Color Yellow Urine Appearance Clear Urine pH 5.5 (5.0-9.0) Ur Specific [place] <= 1.005 (1.005-1.025) Urine Protein Negative (Neg-Trace) mg/dL Urine Glucose (UA) Negative (Negative) mg/dL Urine Ketones Negative (Negative) mg/dL Urine Blood Negative (Negative) Urine Nitrite Negative (Negative) Ur Leukocyte Esterase Moderate (2+) H (Negative) Urine RBC 0-2 (0-2) /HPF Urine WBC 21-50 H (0-5) /HPF Ur Squamous Epith Cells 0-2 (0-2) /HPF Urine Bacteria None Seen (None Seen) Hyaline Casts 0-2 (0-2) /LPF Urine Opiates Screen Not Detected (Not Detect) Urine Fentanyl Screen Not Detected (Not Detect) Ur Barbiturates Screen Not Detected (Not Detect) Ur Phencyclidine Scrn Not Detected (Not Detect) Ur Amphetamines Screen Not Detected (Not Detect) U Benzodiazepines Scrn Not Detected (Not Detect) Urine Cocaine Screen Not Detected (Not Detect) U Marijuana (THC) Screen Not Detected (Not Detect) Ethyl Alcohol mg/dL 03/10/23 Range/Units 22:54 WBC (4.8-10.8) X10*3/uL RBC (4.20-5.50) X10*6/uL Hgb (12.0-16.0) g/dl Hct (37.0-47.0) % MCV (80.0-98.0) fL MCH (27.0-33.0) pg MCHC (31.0-35.0) g/dl RDW (11.0-16.0) % Plt Count (160-400) X10*3/uL MPV (9.4-12.3) fL Immature Gran % (Auto) (0.0-0.4) % Neut % (Auto) (45-73) % Lymph % (Auto) (20-40) % [place] % (Auto) (2-11) % Eos % (Auto) (0-4) % Baso % (Auto) (0-2) % Lymph # (Auto) (1.2-4.9) X10*3/uL [place] # (Auto) (0.1-1.2) X10*3/uL Eos # (Auto) (0.0-0.4) X10*3/uL Baso # (Auto) (0.0-0.2) X10*3/uL Abs Immat Gran (auto) (0.00-0.03) X10*3/uL Absolute Neuts (auto) (2.0-8.3) x10*3/uL Absolute Nucleated RBC (0.0-0.012) X10*3/uL Nucleated RBC % (auto) (0.0-0.2) /100WBC Sodium 142 (135-145) mmol/L Potassium 3.6 (3.3-5.1) mmol/L Chloride 107 (96-108) mmol/L Carbon Dioxide 24 (22-29) mmol/L Anion Gap 15 (12-20) BUN 13 (9-16) mg/dL Creatinine 0.86 (0.5-1.4) mg/dL Estim Creat Clear Calc 67.2 Estimated GFR > 60 Random Glucose 91 (60-115) mg/dL Calcium 9.3 (8.4-10.2) mg/dL Total Bilirubin 0.5 (0.0-1.0) mg/dL AST 24 (5-31) U/L ALT 18 (0-31) U/L Alkaline Phosphatase 76 (39-117) U/L Total Protein 7.6 (6.5-8.0) g/dL Albumin 4.0 (3.5-5.0) g/dL Urine Color Urine Appearance Urine pH (5.0-9.0) Ur Specific [place] (1.005-1.025) Urine Protein (Neg-Trace) mg/dL Urine Glucose (UA) (Negative) mg/dL Urine Ketones (Negative) mg/dL Urine Blood (Negative) Urine Nitrite (Negative) Ur Leukocyte Esterase (Negative) Urine RBC (0-2) /HPF Urine WBC (0-5) /HPF Ur Squamous Epith Cells (0-2) /HPF Urine Bacteria (None Seen) Hyaline Casts (0-2) /LPF Urine Opiates Screen (Not Detect) Urine Fentanyl Screen (Not Detect) Ur Barbiturates Screen (Not Detect) Ur Phencyclidine Scrn (Not Detect) Ur Amphetamines Screen (Not Detect) U Benzodiazepines Scrn (Not Detect) Urine Cocaine Screen (Not Detect) U Marijuana (THC) Screen (Not Detect) Ethyl Alcohol 179 mg/dL External Record Review External record reviewed: Outpatient record and Prior outpatient labs Discharge Plan Discharge Clinical Impression: Alcohol intoxication, Alcohol use disorder, UTI (urinary tract infection) Patient Disposition: Still a Patient Prescriptions: No Action multivitamin Tablet 1 tab PO DAILY clonidine HCl 0.1 mg tablet 0.1 mg PO BID propranolol 10 mg tablet 10 mg PO TID sertraline 50 mg tablet 50 mg PO DAILY quetiapine 50 mg tablet 150 mg PO BEDTIME melatonin 5 mg tablet 5 mg PO BEDTIME Vivitrol 380 mg suspension,extended rel recon 380 mg IM Q4W cephalexin 500 mg capsule 500 mg PO BID Qty: 14 0RF phenazopyridine [Pyridium] 200 mg tablet 200 mg PO TID PRN (Reason: pain) Qty: 6 0RF Interventions: [place]-Suicide Risk Severity Scale Last Done: 03/10/23 22:41
--- NOTE | 2023-03-11 01:31 | PC.NURSE ---
Medication administration delayed due to unverified status.
[2023-03-11] MEDS: Sulfamethox/Trimeth 800/160 TABLET 1 TAB PO ×2 (02:12→08:59)
[2023-03-11 05:56] VITALS: BP 154/76; PULSE 89; RESP 18; TEMP 36.6; O2SAT 97
--- NOTE | 2023-03-11 07:11 | PC.NURSE ---
patient appears to remain asleep at present respirations are even and unlabored patient appears in no distress
[2023-03-11 09:02] VITALS: BP 139/71; PULSE 83; RESP 16; TEMP 36.6; O2SAT 98
[2023-03-11] MEDS: LORazepam 1 MG TABLET PO (09:06)
--- NOTE | 2023-03-11 09:58 | MHC.RECOVRN ---
No bed availability at [facility]. Pt declines [facility]. [facility] continue waiting for an [facility] bed. RN and provider aware.
== END 2023-03-11 11:12 | disposition home or self-care (01) ==
PROVIDERS: Emergency Provider Student in an Organized Health Care Education/Training Program; PCP Physician Assistant
DX: R45.851 Suicidal ideations (principal); F10.129 Alcohol abuse with intoxication, unspecified; F10.14 Alcohol abuse with alcohol-induced mood disorder; Y90.6 Blood alcohol level of 120-199 mg/100 ml; Z87.820 Personal history of traumatic brain injury; Z79.899 Other long term (current) drug therapy
CPT/HCPCS: 36415; 80053; 80307; 81001; 81003; 85025; 99285

== ENCOUNTER 2023-03-12 22:24 | Emergency (ER) | payer OTHER, SELFPAY ==
[2023-03-12 22:34] VITALS: BP 130/60
--- NOTE | 2023-03-12 23:11 | ED_ITS ---
HPI - Alcohol General Stated Complaint: etoh, per ems Time Seen by Provider: 03/12/23 23:01 Source: patient Mode of arrival: EMS Limitations: no limitations History of Present Illness HPI narrative: Patient comes to the emergency room complaining of alcohol intoxication. Patient is slightly intoxicated, stating that she did not drink any hard liquor, but admits to drinking some alcohol. Patient denies using drugs. Patient states that she did not fall or hit her head , denies any other injury Related Data Home Medications Medication Instructions Recorded Confirmed naltrexone microspheres 380 mg 380 mg IM Q4W 02/16/23 03/02/23 intramuscular suspension,extended release (Vivitrol) multivitamin 1 tab PO DAILY 02/27/23 03/02/23 clonidine HCl 0.1 mg tablet 0.1 mg PO BID 03/02/23 03/02/23 melatonin 5 mg tablet 5 mg PO BEDTIME 03/02/23 03/02/23 propranolol 10 mg tablet 10 mg PO TID 03/02/23 03/02/23 quetiapine 50 mg tablet 150 mg PO BEDTIME 03/02/23 03/02/23 sertraline 50 mg tablet 50 mg PO DAILY 03/02/23 03/02/23 Previous Rx's Medication Instructions Recorded cephalexin 500 mg capsule 500 mg PO BID #14 caps 03/10/23 phenazopyridine 200 mg tablet 200 mg PO TID PRN pain #6 tabs 03/10/23 (Pyridium) sulfamethoxazole 800 1 tab PO BID #10 tabs 03/11/23 mg-trimethoprim 160 mg tablet (Bactrim DS) Allergies Allergy/AdvReac Type Severity Reaction Status Date / Time No Known Allergies Allergy Verified 03/12/23 23:20 [No Known Allergies*] Review of Systems Review of Systems: Constitutional : No Weight loss, No Fever, No Chills, No Night Sweats, No Fatigue, No Malaise ENT/Mouth : No Hearing loss, No Ear Pain, No Nasal Congestion, No Sinus Pain, No Hoarseness, No sore throat, No Rhinorrhea, No Swallowing Difficulty Eyes: No Eye Pain, No Swelling, No Redness, No Foreign Body, No Discharge, No Vision Changes Cardiovascular : No Chest Pain, No SOB, No Dyspnea on Exertion, No Orthopnea, No Edema, No Palpitations Respiratory : No Cough, No Sputum, No Wheezing, No Smoke Exposure, No Dyspnea Gastrointestinal : No Nausea, No Vomiting, No Diarrhea, No Constipation, No abdominal Pain, No Hematochezia, No Melena Genitourinary : no irregular bleeding, No Dysuria, No Urinary Frequency, No Hematuria, No Urinary Incontinence, No Urgency, No Flank Pain, No Urinary Flow Changes, No Hesitancy Musculoskeletal : No joint pain, No Myalgias, No Joint Swelling Skin : No Skin Lesions, No rash Neuro : No Weakness, No Numbness, No Paresthesias, No Loss of Consciousness, No Dizziness, No Headache Psych : No Anxiety/Panic, No Depression, No SI/HI/AH/VH, admits to EtOH Heme/Lymph: No Bruising, No Bleeding,No Lymphadenopathy Endocrine : No Polyuria, No Polydipsia, No Temperature Intolerance PMFSH Past Medical History Medical History Depression ETOH abuse Mood disorder as late effect of traumatic brain injury Rash TBI (traumatic brain injury) Surgical History Hx of cystoscopy Social History Social History Household Members: Unknown / Unable to assess Household Members Other:: Reports has been [employer] surfing. Housing: Apartment Unable to assess alcohol history related to: Unknown Alcohol intake: current Alcohol intake frequency: 3 or more drinks per day Alcohol type: beer Patient Tobacco Use Status: Never used Tobacco e-Cigarette/Vaping Use: Never Used Second Hand Smoke Exposure: No Substance Use Type: Caffiene Advance Directives: Yes Advance Directives on File: Yes Advance Directives Date on File: 05/06/21 service: No Current occupational status: disabled Sexual orientation: Straight/Heterosexual Physical Exam ED Const Other: Appearance: Alert. Oriented X3. No acute distress. Slightly intoxicated, coherent, calm and cooperative Eyes: Pupils equal, round and reactive to light. ENT: Pharynx normal. Neck: Normal inspection. Neck supple. No lymph nodes noted. No crepitus CVS: Normal heart rate and rhythm. Pulses normal. Normal S1 and S2 Respiratory: No respiratory distress. Breath sounds normal. No Wheezing. No rales Abdomen: Soft and nontender. No rigidity. No distention. Skin: Skin warm and dry. Normal skin color. Normal skin turgor. Extremities: No lower extremity edema. No Lacerations. No Rash Neuro: Oriented X 3. No motor deficit. No sensory deficit. Moving all extremities. No slurred speech. CN 2 through 12 grossly intact Psych: calm, cooperative, normal affect Course Course Course Narrative: -metabolized to freedom -physician observation started at 23:15 Discharge Plan Discharge Clinical Impression: Alcohol intoxication Patient Disposition: Still a Patient Prescriptions: No Action multivitamin Tablet 1 tab PO DAILY clonidine HCl 0.1 mg tablet 0.1 mg PO BID propranolol 10 mg tablet 10 mg PO TID sertraline 50 mg tablet 50 mg PO DAILY quetiapine 50 mg tablet 150 mg PO BEDTIME melatonin 5 mg tablet 5 mg PO BEDTIME sulfamethoxazole-trimethoprim [Bactrim DS] 800-160 mg tablet 1 tab PO BID Qty: 10 0RF Vivitrol 380 mg suspension,extended rel recon 380 mg IM Q4W cephalexin 500 mg capsule 500 mg PO BID Qty: 14 0RF phenazopyridine [Pyridium] 200 mg tablet 200 mg PO TID PRN (Reason: pain) Qty: 6 0RF
[2023-03-12 23:19] VITALS: BMI 26.6
[2023-03-12 23:20] VITALS: BP 134/63; PULSE 86; RESP 17; TEMP 37.1; O2SAT 97
--- NOTE | 2023-03-12 23:57 | PC.NURSE ---
pt ambulates to and from bathroom with steady gait
--- NOTE | 2023-03-13 00:11 | MHC.EDTECH ---
This tech assumed care of patient at 2300, Patient was changed into hospital attire and belongings list done and secured in pod locker #10, Patient does have her cellphone and experimental worker at bedside. Hourly rounds completed and vitals were taken. RN aware
[2023-03-13 02:27] VITALS: BP 120/89; PULSE 87; RESP 18; TEMP 36.6; O2SAT 98
--- NOTE | 2023-03-13 02:27 | MHC.EDTECH ---
Hourly rounds completed,vitals taken and patient ambulated to bathroom.
[2023-03-13 06:06] VITALS: BP 131/68; PULSE 85; RESP 18; TEMP 36.3; O2SAT 98
--- NOTE | 2023-03-13 06:13 | MHC.EDTECH ---
Hourly rounds completed, vitals taken and patient ambulated to bathroom with a steady gait. Patient giving a can of lilian crow per request.
--- NOTE | 2023-03-13 06:43 | PC.NURSE ---
pt ambulates with steady gait speaking clear full sentences, A&Ox4, no apparent distress
== END 2023-03-13 06:44 | disposition home or self-care (01) ==
PROVIDERS: Emergency Provider Emergency Medicine; PCP Physician Assistant
DX: F10.120 Alcohol abuse with intoxication, uncomplicated (principal); Y90.9 Presence of alcohol in blood, level not specified; Z87.820 Personal history of traumatic brain injury
CPT/HCPCS: 99284

== ENCOUNTER 2023-03-21 01:34 | Emergency (ER) | payer OTHER, SELFPAY ==
[2023-03-21 01:49] VITALS: BP 149/94; PULSE 70; RESP 16; TEMP 36.6; O2SAT 100; BMI 30.3
[2023-03-21 02:34] LABS: MANUAL DIFF FLAG NO
[2023-03-21 02:36] LABS: Basophils Percent Auto 0.6 % (0-2); Eosinophils Absolute Auto 0.3 X10*3/uL (0.0-0.4); Eosinophils Percent Auto 4.3 % (0-4); Hematocrit 38.6 % (37.0-47.0); Hemoglobin 12.5 g/dl (12.0-16.0); Imm Gran Abs Auto 0.01 X10*3/uL (0.00-0.03); Imm Gran Pct Auto 0.1 % (0.0-0.4); Lymphocytes Absolute Auto 3.2 X10*3/uL (1.2-4.9); Lymphocytes Percent Auto 46.4 % (20-40); Mean Corpuscular HGB Conc 32.4 g/dl (31.0-35.0); Mean Corpuscular Hemoglobin 31.6 pg (27.0-33.0); Mean Corpuscular Volume 97.7 fL (80.0-98.0); Mean Platelet Volume 9.4 fL (9.4-12.3); Monocytes Absolute Auto 0.5 X10*3/uL (0.1-1.2); Monocytes Percent Auto 6.8 % (2-11); Neutrophils Absolute Auto 2.9 x10*3/uL (2.0-8.3); Neutrophils Percent Auto 41.8 % (45-73); Platelet Count 340 X10*3/uL (160-400); Red Blood Count 3.95 X10*6/uL (4.20-5.50); Red Cell Distribution Width 15.2 % (11.0-16.0); White Blood Count 6.9 X10*3/uL (4.8-10.8)
[2023-03-21 02:37] LABS: Appearance Urine Clear; Color Urine Dark Yellow; Glucose Urine UA Negative (Negative); Leukocyte Esterase Urine Moderate (2+) (Negative); Nitrite Urine Positive (Negative); UMIC TRIGGER UA YES; Urine Blood Large (3+) (Negative); Urine Ketones Trace mg/dL (Negative); Urine Protein 100 (2+) mg/dL (Neg-Trace)
[2023-03-21 02:46] LABS: Amphetamine Screen Urine Not Detected (Not Detect); Barbiturates, Urine Not Detected (Not Detect); Benzodiazepines Screen Urine POSITIVE (Not Detect); Cannabinoid Screen Urine Not Detected (Not Detect); Cocaine Screen Urine Not Detected (Not Detect); Fentanyl, urine Not Detected (Not Detect); Opiate Screen Urine Not Detected (Not Detect); Phencyclidine Screen Urine Not Detected (Not Detect)
[2023-03-21 02:51] LABS: Alanine Aminotransferase 14 U/L (0-31); Albumin Level 4.3 g/dL (3.5-5.0); Alkaline Phosphatase 62 U/L (39-117); Anion Gap 19 (12-20); Aspartate Amino Transferase 18 U/L (5-31); Bilirubin Total 0.2 mg/dL (0.0-1.0); Blood Urea Nitrogen 19 mg/dL (9-16); Calcium 10.2 mg/dL (8.4-10.2); Carbon Dioxide 20 mmol/L (22-29); Chloride 108 mmol/L (96-108); Creatinine Clr Calc Pharmacy 37.8; Estimated Glomerular Filt Rate 38; Ethanol 75 mg/dL; Glucose Random 102 mg/dL (60-115); Magnesium 1.9 mg/dL (1.6-2.6); Potassium 3.7 mmol/L (3.3-5.1); Sodium 143 mmol/L (135-145); Total Protein 8.1 g/dL (6.5-8.0)
[2023-03-21 02:58] LABS: Bacteria Urine None Seen (None Seen); Hyaline Casts Urine 0-2 /LPF (0-2); RBC Urine >20 /HPF (0-2); WBC Urine 21-50 /HPF (0-5)
--- NOTE | 2023-03-21 03:53 | ED.GENADULT ---
HPI - General Adult General Chief complaint: ETOH/Substance Use Stated complaint: lower back pain Time Seen by Provider: 03/21/23 03:35 Source: patient Mode of arrival: ambulatory Limitations: no limitations History of Present Illness HPI narrative: 57-year-old female came in for feeling depressed with no SI after drinking alcohol with her friend. Patient is scheduled for urological procedure next week for a kidney stone, patient also diagnosed with UTI patient has multiple E coli growth in the urine culture that is sensitive to Bactrim. Patient declined any CP or SOB or abdominal pain. Related Data Home Medications Medication Instructions Recorded Confirmed multivitamin 1 tab PO DAILY 02/27/23 03/21/23 clonidine HCl 0.1 mg tablet 0.1 mg PO BID 03/02/23 03/21/23 melatonin 5 mg tablet 5 mg PO BEDTIME 03/02/23 03/21/23 propranolol 10 mg tablet 10 mg PO TID 03/02/23 03/21/23 quetiapine 50 mg tablet 150 mg PO BEDTIME 03/02/23 03/21/23 sertraline 50 mg tablet 50 mg PO DAILY 03/02/23 03/21/23 cefpodoxime 200 mg tablet 200 mg PO BID 03/21/23 03/21/23 omeprazole 40 mg capsule,delayed 40 mg PO DAILY 03/21/23 03/21/23 release phenazopyridine 100 mg tablet 100 mg PO TID PRN Bladder Spasms 03/21/23 03/21/23 Allergies Allergy/AdvReac Type Severity Reaction Status Date / Time No Known Allergies Allergy Verified 03/12/23 23:20 [No Known Allergies*] Review of Systems Review of Systems: All other systems are reviewed and are negative Constitutional: Reports as per HPI and Reports no additional constitutional complaints Eyes: Reports as per HPI and Reports no additional eye complaints Reports system reviewed and no additional complaints, except as documented Cardiovascular: Reports as per HPI and Reports no additional cardiovascular complaints Respiratory: Reports as per HPI and Reports no additional respiratory complaints Gastrointestinal: Reports as per HPI and Reports no additional gastrointestinal complaints Genitourinary: Reports no additional female genitourinary complaints Musculoskeletal: Reports no additional musculoskeletal complaints Skin/Breast: Reports system reviewed and no additional complaints, except as docu Psychiatric: Reports no additional psychiatric complaints Endocrine: Reports no additional endocrine complaints Hematologic/Lymphatic: Reports no additional hematologic/lymphatic complaints Allergic/Immunologic: Reports no additional allergic/immunologic complaints Reports system reviewed and no additional complaints, except as documented and Reports Abnormal speech present [facility] Past Medical History Medical History Depression ETOH abuse Mood disorder as late effect of traumatic brain injury Rash TBI (traumatic brain injury) Surgical History Hx of cystoscopy Social History Social History Household Members: Unknown / Unable to assess Household Members Other:: Reports has been [employer]. Housing: Apartment Unable to assess alcohol history related to: Unknown Alcohol intake: current Alcohol intake frequency: 3 or more drinks per day Alcohol type: beer and hard liquor Patient Tobacco Use Status: Never used Tobacco e-Cigarette/Vaping Use: Never Used Second Hand Smoke Exposure: No Substance Use Type: Caffiene Advance Directives: Yes Advance Directives on File: Yes Advance Directives Date on File: 05/06/21 service: No Current occupational status: disabled Sexual orientation: Straight/Heterosexual Physical Exam ED Vital Signs: Vital Signs - 24 hr 03/21/23 01:49 Temperature 98 F Pulse Rate 70 Respiratory Rate 16 Blood Pressure 149/94 H Pulse Oximetry 100 Oxygen Delivery Method Room Air BMI result Body Mass Index 30.3 Vital signs have been reviewed as appeared to be correct. Blood pressure normal. Heart rate normal. Respiration rate normal. Temperature normal. Oxygen saturation normal. Appearance: Alert. Oriented X3. No acute distress. Head: Normal external exam. Normocephalic. Atraumatic. No Emerson signs noted. No raccoon eyes noted Eyes: PERRLA. EOMI. Conjunctiva and sclera normal. Eyelids normal. ENT: TM's Normal. Pharynx normal. Uvula midline. Moist mucous membranes. No trismus noted. No drooling noted. No muffled voice noted. Neck: Normal inspection. Neck supple. FROM. No adenopathy. Thyroid Normal. No meningeal signs. No neck mass noted. CVS: Normal heart rate and rhythm. Heart sound normal. No murmurs noted. Pulses normal throughout. Respiratory: No respiratory distress. Painless inspiration. Breath sounds normal. No wheezes/rales/rhonchi noted. Chest nontender. No accessory muscle usage noted or decreased air movement noted. Abdomen: Soft and nontender. Bowel sounds normal in all 4 quadrants. No distention noted. No organomegaly noted. No visible injury noted. Back: No CVA tenderness. Full range of motion noted. Skin: Skin warm and dry. Normal skin color. Normal skin turgor. No rashes/lesions/lacerations noted. Extremities: No lower extremity edema. Extremities exhibit normal range of motion. Extremities nontender. Neuro: Oriented X 3. Cranial nerve exam: II-XII are grossly intact No motor deficit. No sensory deficit. Reflexes normal. Patient Orientation: Person, Place, Time and Situation, okay hygiene and grooming. Fair eye contact, attentive, no tics or tremors. Level of Consciousness: Awake, Appropriate and Alert Patient Behavior: Appropriate, Guarded, Cooperative and Anxious Mood Description: Constricted, Blunted and Apprehensive Affect Description: Constricted, Blunted and Apprehensive Patient Cognition Impaired: No Ability to Follow Directions: Excellent Speech Pattern: Clear, Appropriate and Spontaneous Speech, nonpressured, spontaneous with regular rate and rhythm, normal volume and prosody. No dysarthria. Memory Description: Intact, Immediate Intact and Short Term Intact Hallucinations: None Delusions: Not Present Thought Process: Intact Thought Content: positive for Intact, positive for Logical, denies Suicidal Ideation and denies Homicidal Ideation. Depressive Symptoms: Not present. Judgement and Insight: Limited but adequate. Course Course Course Narrative: 04:00: UTI sensitive to Bactrim, will start on Bactrim twice a day, waiting for care team for evaluation and final disposition. Continue with physician observation Medical Decision Making Differential Diagnosis Differential Diagnoses: The differential diagnosis associated with the presentation includes (Depression, alcohol abuse, UTI.) Lab Data 03/21/23 02:21 03/21/23 02:21 Labs: Lab Results 03/21/23 03/21/23 03/21/23 Range/Units 02:21 02:21 02:21 WBC 6.9 (4.8-10.8) X10*3/uL RBC 3.95 L (4.20-5.50) X10*6/uL Hgb 12.5 (12.0-16.0) g/dl Hct 38.6 (37.0-47.0) % MCV 97.7 (80.0-98.0) fL MCH 31.6 (27.0-33.0) pg MCHC 32.4 (31.0-35.0) g/dl RDW 15.2 (11.0-16.0) % Plt Count 340 D (160-400) X10*3/uL MPV 9.4 (9.4-12.3) fL Immature Gran % (Auto) 0.1 (0.0-0.4) % Neut % (Auto) 41.8 L (45-73) % Lymph % (Auto) 46.4 H (20-40) % [place] % (Auto) 6.8 (2-11) % Eos % (Auto) 4.3 H (0-4) % Baso % (Auto) 0.6 (0-2) % Lymph # (Auto) 3.2 (1.2-4.9) X10*3/uL [place] # (Auto) 0.5 (0.1-1.2) X10*3/uL Eos # (Auto) 0.3 (0.0-0.4) X10*3/uL Baso # (Auto) 0.0 (0.0-0.2) X10*3/uL Abs Immat Gran (auto) 0.01 (0.00-0.03) X10*3/uL Absolute Neuts (auto) 2.9 (2.0-8.3) x10*3/uL Absolute Nucleated RBC 0.000 (0.0-0.012) X10*3/uL Nucleated RBC % (auto) 0.0 (0.0-0.2) /100WBC Sodium 143 (135-145) mmol/L Potassium 3.7 (3.3-5.1) mmol/L Chloride 108 (96-108) mmol/L Carbon Dioxide 20 L (22-29) mmol/L Anion Gap 19 (12-20) BUN 19 H (9-16) mg/dL Creatinine 1.40 (0.5-1.4) mg/dL Estim Creat Clear Calc 37.8 Estimated GFR 38 Random Glucose 102 (60-115) mg/dL Calcium 10.2 D (8.4-10.2) mg/dL Magnesium 1.9 (1.6-2.6) mg/dL Total Bilirubin 0.2 (0.0-1.0) mg/dL AST 18 (5-31) U/L ALT 14 (0-31) U/L Alkaline Phosphatase 62 (39-117) U/L Total Protein 8.1 H (6.5-8.0) g/dL Albumin 4.3 (3.5-5.0) g/dL Urine Color Urine Appearance Urine pH (5.0-9.0) Ur Specific [place] (1.005-1.025) Urine Protein (Neg-Trace) mg/dL Urine Glucose (UA) (Negative) mg/dL Urine Ketones (Negative) mg/dL Urine Blood (Negative) Urine Nitrite (Negative) Ur Leukocyte Esterase (Negative) Urine RBC (0-2) /HPF Urine WBC (0-5) /HPF Ur Squamous Epith Cells (0-2) /HPF Urine Bacteria (None Seen) Hyaline Casts (0-2) /LPF Urine Opiates Screen Not Detected (Not Detect) Urine Fentanyl Screen Not Detected (Not Detect) Ur Barbiturates Screen Not Detected (Not Detect) Ur Phencyclidine Scrn Not Detected (Not Detect) Ur Amphetamines Screen Not Detected (Not Detect) U Benzodiazepines Scrn POSITIVE H (Not Detect) Urine Cocaine Screen Not Detected (Not Detect) U Marijuana (THC) Screen Not Detected (Not Detect) Ethyl Alcohol 75 mg/dL 03/21/23 Range/Units 02:21 WBC (4.8-10.8) X10*3/uL RBC (4.20-5.50) X10*6/uL Hgb (12.0-16.0) g/dl Hct (37.0-47.0) % MCV (80.0-98.0) fL MCH (27.0-33.0) pg MCHC (31.0-35.0) g/dl RDW (11.0-16.0) % Plt Count (160-400) X10*3/uL MPV (9.4-12.3) fL Immature Gran % (Auto) (0.0-0.4) % Neut % (Auto) (45-73) % Lymph % (Auto) (20-40) % [place] % (Auto) (2-11) % Eos % (Auto) (0-4) % Baso % (Auto) (0-2) % Lymph # (Auto) (1.2-4.9) X10*3/uL [place] # (Auto) (0.1-1.2) X10*3/uL Eos # (Auto) (0.0-0.4) X10*3/uL Baso # (Auto) (0.0-0.2) X10*3/uL Abs Immat Gran (auto) (0.00-0.03) X10*3/uL Absolute Neuts (auto) (2.0-8.3) x10*3/uL Absolute Nucleated RBC (0.0-0.012) X10*3/uL Nucleated RBC % (auto) (0.0-0.2) /100WBC Sodium (135-145) mmol/L Potassium (3.3-5.1) mmol/L Chloride (96-108) mmol/L Carbon Dioxide (22-29) mmol/L Anion Gap (12-20) BUN (9-16) mg/dL Creatinine (0.5-1.4) mg/dL Estim Creat Clear Calc Estimated GFR Random Glucose (60-115) mg/dL Calcium (8.4-10.2) mg/dL Magnesium (1.6-2.6) mg/dL Total Bilirubin (0.0-1.0) mg/dL AST (5-31) U/L ALT (0-31) U/L Alkaline Phosphatase (39-117) U/L Total Protein (6.5-8.0) g/dL Albumin (3.5-5.0) g/dL Urine Color Dark Yellow Urine Appearance Clear Urine pH 6.0 (5.0-9.0) Ur Specific [place] 1.020 (1.005-1.025) Urine Protein 100 (2+) H (Neg-Trace) mg/dL Urine Glucose (UA) Negative (Negative) mg/dL Urine Ketones Trace (Negative) mg/dL Urine Blood Large (3+) H (Negative) Urine Nitrite Positive H (Negative) Ur Leukocyte Esterase Moderate (2+) H (Negative) Urine RBC >20 H (0-2) /HPF Urine WBC 21-50 H (0-5) /HPF Ur Squamous Epith Cells 6-10 (0-2) /HPF Urine Bacteria None Seen (None Seen) Hyaline Casts 0-2 (0-2) /LPF Urine Opiates Screen (Not Detect) Urine Fentanyl Screen (Not Detect) Ur Barbiturates Screen (Not Detect) Ur Phencyclidine Scrn (Not Detect) Ur Amphetamines Screen (Not Detect) U Benzodiazepines Scrn (Not Detect) Urine Cocaine Screen (Not Detect) U Marijuana (THC) Screen (Not Detect) Ethyl Alcohol mg/dL Discharge Plan Discharge Clinical Impression: Alcoholic intoxication, UTI (urinary tract infection) Patient Disposition: Still a Patient Prescriptions: No Action multivitamin Tablet 1 tab PO DAILY clonidine HCl 0.1 mg tablet 0.1 mg PO BID propranolol 10 mg tablet 10 mg PO TID sertraline 50 mg tablet 50 mg PO DAILY quetiapine 50 mg tablet 150 mg PO BEDTIME melatonin 5 mg tablet 5 mg PO BEDTIME cefpodoxime 200 mg tablet 200 mg PO BID omeprazole 40 mg capsule,delayed release(DR/EC) 40 mg PO DAILY phenazopyridine 100 mg tablet 100 mg PO TID PRN (Reason: Bladder Spasms)
[2023-03-21] MEDS: Sulfamethox/Trimeth 800/160 TABLET 1 TAB PO (05:19)
[2023-03-21 06:00] VITALS: RESP 14
--- NOTE | 2023-03-21 06:44 | PC.NURSE ---
Patient slept through the night, no distress observed/reported, + UTI administered first dose of Bactrim, patient compliant, care consult ordered for detox/si, pending evaluation, labs completed/resulted, asymptomatic ETOH withdrawal, VSS, behavior non concerning, patient reported she has Lithotripsy scheduled this coming Friday, med rec completed/approved by the provider, will continue to monitor.
[2023-03-21 07:25] VITALS: RESP 14
[2023-03-21] MEDS: Multivitamin TABLET 1 TAB PO (09:54)
[2023-03-21] MEDS: Propranolol HCL 10 MG TABLET PO (09:54)
[2023-03-21] MEDS: cloNIDine HCL 0.1 MG TABLET PO (09:54)
[2023-03-21] MEDS: Omeprazole 40 MG CAPSULE.DR PO (09:55)
[2023-03-21] MEDS: Sertraline HCL 50 MG TABLET PO (09:55)
[2023-03-21 10:00] VITALS: BP 131/84; PULSE 80; RESP 16; TEMP 36.2; O2SAT 98
--- NOTE | 2023-03-21 10:08 | PC.NURSE ---
pt requested the phone to call her son because she states that she would like to go home. pt spoke with her son and made arrangements for getting in his apartment when d/c'd. messi betancur (swimming coach) states that pt can be d/c'd home.
== END 2023-03-21 10:55 | disposition home or self-care (01) ==
PROVIDERS: Emergency Medicine; Emergency Provider Emergency Medicine Emergency Medical Services; PCP Physician Assistant
DX: F10.129 Alcohol abuse with intoxication, unspecified (principal); N39.0 Urinary tract infection, site not specified; M54.50 Low back pain, unspecified; Y90.3 Blood alcohol level of 60-79 mg/100 ml; Z79.899 Other long term (current) drug therapy
CPT/HCPCS: 36415; 80053; 80307; 81001; 83735; 85025; 87086; 99284

== ENCOUNTER 2023-03-23 22:58 | Emergency (ER) | payer OTHER, SELFPAY ==
[2023-03-23 23:03] VITALS: BP 140/84; PULSE 91; O2SAT 96
[2023-03-23 23:11] VITALS: BMI 29.3
--- NOTE | 2023-03-23 23:17 | PC.NURSE ---
security at bedside doing supervisor records change. security checked pt belongings.
[2023-03-23 23:21] VITALS: BP 124/69; PULSE 76; RESP 16; TEMP 36.4; O2SAT 95
[2023-03-24 01:40] VITALS: RESP 18
--- NOTE | 2023-03-24 06:44 | ED_ITS ---
HPI - Alcohol General Chief Complaint: ETOH/Substance Use Stated Complaint: ETOH Time Seen by Provider: 03/23/23 23:07 Source: patient Mode of arrival: EMS Limitations: no limitations History of Present Illness HPI narrative: 57-year-old female who was brought to emergency department for evaluation of acute alcohol intoxication. The patient was picked up on the side of the road by EMS. Patient was brought to emergency department for intoxication. She does admit to drinking alcohol this evening and she does have several cans of beer with her as well. She states that she has a procedure here on 03/24/2023 at 13:30 hours. She states she has a laser procedure for a kidney stone which is scheduled by Dr. Gan. She states that she is afraid to get the procedure and that if she leaves the hospital she will not get the procedure done. She denied fever, chills, chest pain, shortness of breath, nausea, vomiting, frequency, urgency or dysuria. The patient has been seen frequently in the emergency department and this is her 7th visit this month with a previous visits being for alcohol intoxication. Related Data Home Medications Medication Instructions Recorded Confirmed multivitamin 1 tab PO DAILY 02/27/23 03/21/23 clonidine HCl 0.1 mg tablet 0.1 mg PO BID 03/02/23 03/21/23 melatonin 5 mg tablet 5 mg PO BEDTIME 03/02/23 03/21/23 propranolol 10 mg tablet 10 mg PO TID 03/02/23 03/21/23 quetiapine 50 mg tablet 150 mg PO BEDTIME 03/02/23 03/21/23 sertraline 50 mg tablet 50 mg PO DAILY 03/02/23 03/21/23 cefpodoxime 200 mg tablet 200 mg PO BID 03/21/23 03/21/23 omeprazole 40 mg capsule,delayed 40 mg PO DAILY 03/21/23 03/21/23 release phenazopyridine 100 mg tablet 100 mg PO TID PRN Bladder Spasms 03/21/23 03/21/23 Previous Rx's Medication Instructions Recorded sulfamethoxazole 800 1 tab PO BID 5 days #10 tabs 03/21/23 mg-trimethoprim 160 mg tablet (Bactrim DS) Allergies Allergy/AdvReac Type Severity Reaction Status Date / Time No Known Allergies Allergy Verified 03/23/23 23:13 [No Known Allergies*] Review of Systems Review of Systems: Yes all other systems are reviewed and are negative [facility] Past Medical History [facility] Narrative: Social history: The patient denies tobacco use. She admits to drinking at least 7 beers this evening. She denies drug use. Medical History Depression ETOH abuse Mood disorder as late effect of traumatic brain injury Rash TBI (traumatic brain injury) Surgical History Hx of cystoscopy Social History Social History Household Members: Unknown / Unable to assess Household Members Other:: Reports has been couch surfing. Housing: Apartment Unable to assess alcohol history related to: Unknown Alcohol intake: current Alcohol intake frequency: 3 or more drinks per day Alcohol type: beer Patient Tobacco Use Status: Never used Tobacco e-Cigarette/Vaping Use: Never Used Second Hand Smoke Exposure: No Substance Use Type: Caffiene Advance Directives: Yes Advance Directives on File: Yes Advance Directives Date on File: 05/06/21 Patient : No service: No Current occupational status: disabled Sexual orientation: Straight/Heterosexual Physical Exam ED Vital Signs: Vital Signs - 24 hr 03/23/23 23:21 03/24/23 01:40 Temperature 97.5 F Pulse Rate 76 Respiratory Rate 16 18 Blood Pressure 124/69 Pulse Oximetry 95 Oxygen Delivery Method Room Air BMI result Body Mass Index 29.3 General: Awake, alert, female patient, she does have a strong odor of alcohol on her breath, she does appear to be acutely intoxicated she is cooperative HEENT: Patient's head is normal cephalic and atraumatic, pupils were equal round reactive light, sclera contact however normal, mouth revealed moist membranes with no erythema or exudates Neck: Supple with no adenopathy Lungs: Clear to auscultation, breath sounds symmetric bilaterally Heart: Regular rate rhythm, normal S1-S2, no murmurs rubs or gallops Abdomen: Soft, nontender, nondistended, normoactive bowel sounds no rebound, no voluntary or involuntary guarding Back: No CVA tenderness Extremities: Normal Neuro: Nonfocal Medical Decision Making Medical Decision Making MDM Narrative: 57-year-old female who presents emergency department for evaluation of acute alcohol intoxication. This is the patient's 7 visit to the emergency department this month the previous ones for alcohol intoxication as well. The patient does have a strong odor of alcohol on her breath, she does appear to be intoxicated and she does admit to drinking we 7 beers prior to coming to the emergency department. Patient states that she has a urology procedure today at 01:30 p.m.. The patient will be kept in the emergency department until she is sober and then will be discharged that she can keep her appointment for her procedure. Differential Diagnosis Differential diagnosis includes was not limited to acute alcohol intoxication, polysubstance use disorder Admission/Observation Consideration of admission/observation: Escalation of care including admission/observation considered Discharge Plan Discharge Clinical Impression: Alcohol intoxication Patient Disposition: Still a Patient Additional Instructions: This is her 2nd visit to the emergency department this month for alcohol-related issues. You need to get help with your alcohol use disorder. Continue taking medications as prescribed by your providers. Follow-up with your doctor in 2 days. Please return to the emergency department if your symptoms get worse or if you develop any symptoms that are concerning to you. Prescriptions: No Action multivitamin Tablet 1 tab PO DAILY clonidine HCl 0.1 mg tablet 0.1 mg PO BID propranolol 10 mg tablet 10 mg PO TID sertraline 50 mg tablet 50 mg PO DAILY quetiapine 50 mg tablet 150 mg PO BEDTIME melatonin 5 mg tablet 5 mg PO BEDTIME cefpodoxime 200 mg tablet 200 mg PO BID omeprazole 40 mg capsule,delayed release(DR/EC) 40 mg PO DAILY phenazopyridine 100 mg tablet 100 mg PO TID PRN (Reason: Bladder Spasms) sulfamethoxazole-trimethoprim [Bactrim DS] 800-160 mg tablet 1 tab PO BID 5 Days Qty: 10 0RF
== END 2023-03-24 08:40 | disposition left against medical advice (07) ==
PROVIDERS: Emergency Provider Emergency Medicine Emergency Medical Services; PCP Internal Medicine
DX: F10.129 Alcohol abuse with intoxication, unspecified (principal); Y90.9 Presence of alcohol in blood, level not specified; Z79.899 Other long term (current) drug therapy
CPT/HCPCS: 99284

== ENCOUNTER 2023-03-24 15:28 | Day surgery (SDC) | payer OTHER, SELFPAY ==
--- NOTE | 2023-02-27 13:09 | P.CONAN_ITS ---
HPI - Anesthesia Eval Consult details Narrative: 57yo F for Right Cystoscopy, Ureteroroscopy, Retro, Laser, with poss stent exchange [facility] admit 01/2023 with urosepsis r/t obstructive stone. s/p cysto,etc 02/07/23 with GA-LMA 4 ETOH abuse with withdrawals. Hx TBI PMFSH Active Problems Active Problems: All Active Problems (Updated 02/18/23 @ 00:07 by Background Daemon) Shingles (Acute) Hydroureteronephrosis (Acute) Bacteremia (Acute) Rash (Acute) Past Medical History Medical History (Updated 02/18/23 @ 00:07 by Background Daemon) Depression ETOH abuse Mood disorder as late effect of traumatic brain injury Rash TBI (traumatic brain injury) Surgical History Surgical History (Updated 02/27/23 @ 09:48 by Sonia Ramos RN) Hx of cystoscopy Social History Social History Household Members: Unknown / Unable to assess Household Members Other:: Reports has been [employer] surfing. Housing: Apartment Unable to assess alcohol history related to: Unknown Alcohol intake: current Alcohol intake frequency: 3 or more drinks per day Alcohol type: hard liquor Patient Tobacco Use Status: Never used Tobacco e-Cigarette/Vaping Use: Never Used Second Hand Smoke Exposure: No Substance Use Type: Caffiene Advance Directives Date on File: 05/06/21 service: No Current occupational status: disabled Sexual orientation: Straight/Heterosexual Meds Allergies Allergy/AdvReac Type Severity Reaction Status Date / Time No Known Allergies Allergy Verified 01/30/23 22:14 [No Known Allergies*] Home Medications Medication Instructions Recorded Confirmed Last Taken Type naltrexone microspheres 380 mg 380 mg IM Q4W 02/16/23 02/27/23 Unknown History intramuscular suspension,extended release (Vivitrol) fluticasone propionate 50 1 spray intranasal DAILY 02/27/23 02/27/23 Unknown History mcg/actuation nasal spray,suspension multivitamin 1 tab PO DAILY 02/27/23 02/27/23 Unknown History Exam Exam Date and Time: February 27, 2023 1309 Pertinent Lab Results Pertinent Lab Results: Laboratory Tests 02/16/23 02/16/23 16:27 16:28 WBC 8.9 Hgb 11.4 L Hct 34.5 L Plt Count 663 H D Sodium 143 Potassium 4.1 Chloride 106 Carbon Dioxide 27 BUN 15 Creatinine 1.25 Narrative Narrative: EKG 01/2023 Vent. Rate : 120 BPM ? ? Atrial Rate : 120 BPM ?? P-R Int : 150 ms? QRS Dur : 078 ms ? ? QT Int : 318 ms ? ? ? P-R-T Axes : 041 014 007 degrees ?? QTc Int : 449 ms ? Sinus tachycardia Otherwise normal ECG When compared with ECG of 16-OCT-2022 19:03, Inverted T waves have replaced nonspecific T wave abnormality in Inferior leads Assessment and Plan Assessment Anesthesia Assessment: Chart Reviewed
--- NOTE | 2023-03-03 14:15 | PC.NURSE ---
pt cancelled themself sts wasnot aware surgery today and has eaten will reschedule
--- NOTE | 2023-03-21 13:48 | PC.NURSE ---
Multiple attempts to call patient and give arrival time of 1430, patient upset about different times being given for procedure. Multiple phone disconnects by patient during pre op instructions & explanation for change of arrival time. Unable to give NPO instructions d/t disconnect by patient. Whitney from Urology office made aware. Per Whitney - she was previously given pre op instructions by the office.
[2023-03-24] VITALS (7 sets, daily range): BP systolic 127–148; BP diastolic 58–76; PULSE 78–102; RESP 12–18; TEMP 36.1–36.6; O2SAT 96–98; BMI 33.1
--- NOTE | ~2023-03-24 | FL_ITS ---
EXAMINATION: XR FLUOROSCOPY WITH IMAGES CLINICAL INFORMATION: Cystoscopy, ureteroscopy, laser and stent. COMPARISON: CT of the abdomen and pelvis January 2023 TECHNIQUE: Fluoroscopy Supervised By: Dr. Kane Gan. Fluoroscopy Time: 9.7 seconds. Cumulative Dose: 2.57 mGy. DAP: None. Images: 1. FINDINGS: Image demonstrates wire projecting over the right distal ureter and bladder. FL/FL guidance in OR IMPRESSION: Fluoroscopy guidance for urology procedure.
[2023-03-24] MEDS: Lactated Ringers 1,000 ML 100 ML IVCONT (16:20)
--- NOTE | 2023-03-24 16:53 | MHC.SHP ---
Pre-Procedural Eval Section A Date of Service: 03/24/23 The patient is an INPATIENT: No Changes since office visit: No Cold of Flu in the past 2 weeks, No New Medical Problems, No Changes in Medication and No Patient answered all questions The History & Physical has been completed within 30 days and I have reviewed it.: No Section B Chief Complaint: Unspecified hydronephrosis Details of Present Illness: Right distal ureteric stone Relevant Family History (Specify if Yes): No Relevant Social History: Alcohol Use Present Medications: see Short Stay Collaborative assessment Medical History: No relevant PMH History of Previous Operations: Relevant previous surgery/procedure and date(s) Allergies: Allergies Allergy/AdvReac Type Severity Reaction Status Date / Time No Known Allergies Allergy Verified 03/23/23 23:13 [No Known Allergies*] Review of Systems Sugical H&P ROS: Negative: Constitution, Cardiovascular, Respiratory, Neurological, Psychiatric, Hem-Onc, Allergic/Immunologic, Gastrointestinal, Genitourinary, Musculoskeletal, Integumentary, Endocrine and Eyes/Ears/Nose/Throat Exam Surgical H&P Exam: Normal: HEENT, Normal: Heart, Normal: Lungs, Normal: Extremities, Normal: Abdomen, Normal: Skin and Normal: Neurological Plan Diagnosis/Plan: Unchanged ( cystoscopy, right stent removal, right retrograde, right ureteroscopy with laser lithotripsy) I have reviewed the history and physical and performed a pertinent physical examination on my patient. No changes have occurred unless specified. Time Spent With Patient Time: Total time managing care of this patient today ____ minutes.
--- NOTE | 2023-03-24 18:10 | P.CONAN_ITS ---
HPI - Anesthesia Eval Consult details Narrative: 57 yo female patient for Cystoscopy, Right ureteroscpy, retrograde, laser with possible stent exchange. Patient in ED this am 03/24/23 for evaluation of acute alcoholic intoxicaton. Left ED before discharged by MD. 7th visit to ED this month related to ETOH intoxication PMFSH Active Problems Active Problems: All Active Problems (Updated 03/24/23 @ 15:53 by Araceli Maya MD) Shingles (Acute) Hydroureteronephrosis (Acute) Bacteremia (Acute) Alcohol intoxication (Acute) Rash (Acute) Unreliable historian. Several visits to ED this month for ETOH intoxication. Last visit this morning but patient denies. Past Medical History Medical History Depression ETOH abuse Mood disorder as late effect of traumatic brain injury Rash TBI (traumatic brain injury) Family History Family history of problems with anesthesia: No Surgical History Surgical History Hx of cystoscopy History of Problems with Anesthesia: No Social History Social History (Updated 03/24/23 @ 18:27 by Araceli Maya MD) Household Members: Unknown / Unable to assess Household Members Other:: Reports has been [employer] surfing. Housing: Apartment Alcohol intake: current Alcohol type: beer Patient Tobacco Use Status: Never used Tobacco e-Cigarette/Vaping Use: Never Used Second Hand Smoke Exposure: No Substance Use Type: Caffiene Advance Directives Date on File: 05/06/21 service: No Current occupational status: disabled Sexual orientation: Straight/Heterosexual Meds Allergies Allergy/AdvReac Type Severity Reaction Status Date / Time No Known Allergies Allergy Verified 03/23/23 23:13 [No Known Allergies*] Active Medications: Current Medications Lactated Ringer's (Lr) 1,000 mls @ 100 mls/hr IVCONT .Q10H MYRA Last Admin: 03/24/23 16:20 Dose: 100 mls/hr Home Medications Medication Instructions Recorded Confirmed Last Taken Type multivitamin 1 tab PO DAILY 02/27/23 03/21/23 Unknown History clonidine HCl 0.1 mg tablet 0.1 mg PO BID 03/02/23 03/21/23 Unknown History melatonin 5 mg tablet 5 mg PO BEDTIME 03/02/23 03/21/23 Unknown History propranolol 10 mg tablet 10 mg PO TID 03/02/23 03/21/23 Unknown History quetiapine 50 mg tablet 150 mg PO BEDTIME 03/02/23 03/21/23 Unknown History sertraline 50 mg tablet 50 mg PO DAILY 03/02/23 03/21/23 Unknown History cefpodoxime 200 mg tablet 200 mg PO BID 03/21/23 03/21/23 03/20/23 19:00 History omeprazole 40 mg capsule,delayed 40 mg PO DAILY 03/21/23 03/21/23 Unknown History release phenazopyridine 100 mg tablet 100 mg PO TID PRN Bladder Spasms 03/21/23 03/21/23 Unknown History Exam Exam Date and Time: March 24, 20231809 Height,Weight and Vital Signs: Height 5 ft 1 in Weight 79.379 kg Last Vital Signs Temp 97.9 F 03/24/23 16:14 Pulse 78 03/24/23 16:14 Resp 18 03/24/23 16:14 BP 128/76 03/24/23 16:14 Pulse Ox 98 03/24/23 16:14 O2 Del Method Room Air 03/24/23 16:14 Airway Mallampati Class: II TM Dist: >3cm Neck ROM: Full Loose/Missing/Broken Teeth: No (Denies loose, broken, missing teeth) Heart: RRR Lungs: CTAB Assessment and Plan Assessment Anesthesia Assessment: Anesthesia Plan Discussed and Chart Reviewed Final Anesthetic Review Family History of Problems with Anesthesia: No History of Problems with Anesthesia: No NPO: Yes (Per patient ?) ASA Class: III Final Preanesthetic Review: No Changes in Pt Med Stat, Meds/Allgs Chart Reviewed, Consent Obtained/Reviewed and Anes Risks/Benef Reviewed Patient Risk: Intermediate Procedure Risk: Low Assessment/Block/Sedation in SS: Assess/Block/Sedation-SS Anesthetic Plan Anesthetic Plan: GA Disposition: Standard PACU
--- NOTE | 2023-03-24 19:58 | P.OP_ITS ---
Operative Note Operative Note Date of Service: 03/24/23 Narrative: PreOperative Diagnosis: distal right ureteric stone, indwelling right stent Post Operative Diagnosis: distal right ureteric stone Procedure: - cystoscopy, removal right indwelling stent, retrograde - right ureteroscopy, laser lithotripsy, stone basketing Surgeon: Dr Kane aGn Anesthesia: General Indications for procedure: prior presentation to hospital through ER with 8 mm distal right ureteric stone and infection. Stent placed. Here for completion procedure. Procedure: After informed consent was verified the patient was brought to the operating room and placed in a supine position. Anesthesia was administered per protocol. The patient was placed in a modified dorsal lithotomy position and prepped and draped in a sterile fashion. Safety pause time-out and side of surgery were confirmed. Images were available for review. Antibiotic administration confirmed. A 22 Polish cystoscope was inserted per urethra. The urethra was without aabnormality. The bladder was normal in its entirety. Both ureteric orifices were seen in normal position Stent seen emerging from right ureteric orifice. Stent removed.. The Right ureteric orifice was cannulated and a retrograde examination was performed. filling defect distal orifice . A Sensor guidewire was placed up to the level of the renal pelvis under fluoroscopy. The rigid cystoscope was removed The semi rigid ureteral scope was placed alongside the Sensor guidewire. stone was encountered in the distal portion of the ureter.. Using a 365 micro holmium laser fiber the stone was broken into small pieces using a combination of hammer and dusting techiques. Stone fragments were removed from the ureter using a sure catch basket. a decision was made not to place ureteric stent The bladder was emptied. The patient tolerated the procedure well and was extuba kristin in the operating room. They were transferred in stable condition to the recovery area. Pathology: stones Drains: -
[2023-03-24] MEDS: Phenazopyridine HCL 100 MG TABLET PO (20:14)
[2023-03-29 19:43] LABS: Stone Source RIGHT URETERAL STONE
== END 2023-03-24 21:30 | disposition home or self-care (01) ==
PROVIDERS: PCP Physician Assistant; Visit Provider Urology
PROC: (CPT 52353; principal; 2023-03-24 16:00)
DX: N20.1 Calculus of ureter (principal); Z96.0 Presence of urogenital implants; F10.10 Alcohol abuse, uncomplicated; F32.A Depression, unspecified; R21 Rash and other nonspecific skin eruption; F39 Unspecified mood [affective] disorder; Z87.820 Personal history of traumatic brain injury; Z86.19 Personal history of other infectious and parasitic diseases; Z79.899 Other long term (current) drug therapy
CPT/HCPCS: 52353; 82365; 88300; C1758; C1769; J0131; J1956; J2405; J3010; Q9967

== ENCOUNTER → 2023-03-24 15:28 | Outpatient (BNV) | payer OTHER, SELFPAY | PROVIDERS: PCP Physician Assistant; Visit Provider Urology | DX: N20.1 Calculus of ureter (principal) | CPT/HCPCS: 52356 ==

== ENCOUNTER 2023-03-27 21:38 | Emergency (ER) | payer OTHER, SELFPAY ==
[2023-03-27 21:44] VITALS: BP 130/73; PULSE 97; RESP 18; TEMP 36.7; O2SAT 97; BMI 33.1
--- NOTE | 2023-03-27 22:01 | ED_ITS ---
HPI - Psych General Chief Complaint: Psychiatric Symptoms Stated Complaint: SI Time Seen by Provider: 03/27/23 21:50 Source: patient Mode of arrival: ambulatory Limitations: no limitations History of Present Illness HPI Narrative: 57-year-old female who brought to the emergency department for evaluation of acute alcohol intoxication and suicidal ideation patient admitted to drinking alcohol all day today, patient is seeking help with her drinking problem. Patient s/p removal of indwelling right ureteric stent and leather Related Data Home Medications Medication Instructions Recorded Confirmed multivitamin 1 tab PO DAILY 02/27/23 03/27/23 clonidine HCl 0.1 mg tablet 0.1 mg PO BID 03/02/23 03/27/23 melatonin 5 mg tablet 5 mg PO BEDTIME 03/02/23 03/27/23 propranolol 10 mg tablet 10 mg PO TID 03/02/23 03/27/23 quetiapine 50 mg tablet 150 mg PO BEDTIME 03/02/23 03/27/23 sertraline 50 mg tablet 50 mg PO DAILY 03/02/23 03/27/23 omeprazole 40 mg capsule,delayed 40 mg PO DAILY 03/21/23 03/27/23 release phenazopyridine 100 mg tablet 100 mg PO TID PRN Bladder Spasms 03/21/23 03/27/23 sulfamethoxazole 800 1 tab PO BID 03/27/23 03/27/23 mg-trimethoprim 160 mg tablet Previous Rx's Medication Instructions Recorded naproxen 500 mg tablet 500 mg PO BID PRN pain 7 days #14 03/24/23 tabs Allergies Allergy/AdvReac Type Severity Reaction Status Date / Time No Known Allergies Allergy Verified 03/23/23 23:13 [No Known Allergies*] [facility] Past Medical History Medical History Depression ETOH abuse Mood disorder as late effect of traumatic brain injury Rash TBI (traumatic brain injury) Surgical History Hx of cystoscopy Social History Social History (Updated 03/24/23 @ 18:27 by Araceli Maya MD) Household Members: Unknown / Unable to assess Household Members Other:: Reports has been couch surfing. Housing: Apartment Alcohol intake: current Alcohol type: beer Patient Tobacco Use Status: Never used Tobacco e-Cigarette/Vaping Use: Never Used Second Hand Smoke Exposure: No Substance Use Type: Caffiene Advance Directives: Yes Advance Directives on File: Yes Advance Directives Date on File: 05/06/21 service: No Current occupational status: disabled Sexual orientation: Straight/Heterosexual Physical Exam Vital Signs: Vital Signs: Last Vital Signs Temp 98.1 F 03/27/23 21:44 Pulse 97 03/27/23 21:44 Resp 18 03/27/23 21:44 BP 130/73 03/27/23 21:44 Pulse Ox 97 03/27/23 21:44 O2 Del Method Room Air 03/27/23 21:44 BMI result Body Mass Index 33.1 vital signs have been reviewed as appeared to be correct. Blood pressure nor mal. Heart rate normal. Respiration rate normal. Temperature normal. Oxygen saturation normal. Appearance: Alert. Oriented X3. No acute distress. Head: Normal external exam. Normocephalic. Atraumatic. No Emerson signs noted. No raccoon eyes noted Eyes: PERRLA. EOMI. Conjunctiva and sclera normal. Eyelids normal. ENT: TM's Normal. Pharynx normal. Uvula midline. Moist mucous membranes. No trismus noted. No drooling noted. No muffled voice noted. Neck: Normal inspection. Neck supple. FROM. No adenopathy. Thyroid Normal. No meningeal signs. No neck mass noted. CVS: Normal heart rate and rhythm. Heart sound normal. No murmurs noted. Pulses normal throughout. Respiratory: No respiratory distress. Painless inspiration. Breath sounds normal. No wheezes/rales/rhonchi noted. Chest nontender. No accessory muscle usage noted or decreased air movement noted. Abdomen: Soft and nontender. Bowel sounds normal in all 4 quadrants. No distention noted. No organomegaly noted. No visible injury noted. Back: No CVA tenderness. Full range of motion noted. Skin: Skin warm and dry. Normal skin color. Normal skin turgor. No rashes/lesions/lacerations noted. Extremities: No lower extremity edema. Extremities exhibit normal range of motion. Extremities nontender. Neuro: Oriented X 3. Cranial nerve exam: II-XII are grossly intact No motor deficit. No sensory deficit. Reflexes normal. Patient Orientation: Person, Place, Time and Situation, okay hygiene and grooming. Fair eye contact, attentive, no tics or tremors. Level of Consciousness: Awake, Appropriate and Alert Patient Behavior: Appropriate, Guarded, Cooperative and Anxious Mood Description: Constricted, Blunted and Apprehensive Affect Description: Constricted, Blunted and Apprehensive Patient Cognition Impaired: No Ability to Follow Directions: Excellent Speech Pattern: Clear, Appropriate and Spontaneous Speech, nonpressured, spontaneous with regular rate and rhythm, normal volume and prosody. No dysarthria. Memory Description: Intact, Immediate Intact and Short Term Intact Hallucinations: None Delusions: Not Present Thought Process: Intact Thought Content: positive for Intact, positive for Logical, Positive for suicidal ideation with no plan,denies Homicidal Ideation. Depressive Symptoms: Not present. Judgement and Insight: Limited but adequate. Course Course Course Narrative: 57-year-old female with palpable abuse problem, came in after drinking alcohol concern of suicidal ideation, will keep the patient until sober And care team evaluation. Medical Decision Making Differential Diagnosis Differential Diagnoses: The differential diagnosis associated with the presentation includes ( alcohol intoxication, depression, acute psychosis, anxiety, alcohol withdrawal , electrolytes abnormality, severe anemia.) Admission/Observation Consideration of admission/observation: Escalation of care including admission/observation considered Lab Data MDM Lab Attestation statement: I reviewed the patient's lab results. Labs: Lab Results 03/27/23 Range/Units 22:11 Urine Color Yellow Urine Appearance Clear Urine pH 5.5 (5.0-9.0) Ur Specific Stitzer 1.015 (1.005-1.025) Urine Protein Negative (Neg-Trace) mg/dL Urine Glucose (UA) Negative (Negative) mg/dL Urine Ketones Trace (Negative) mg/dL Urine Blood Trace H (Negative) Urine Nitrite Negative (Negative) Ur Leukocyte Esterase Negative (Negative) Discharge Plan Discharge Clinical Impression: Suicidal ideation, Alcohol intoxication Patient Disposition: Still a Patient Prescriptions: No Action multivitamin Tablet 1 tab PO DAILY naproxen 500 mg tablet 500 mg PO BID PRN (Reason: pain) 7 Days Qty: 14 0RF clonidine HCl 0.1 mg tablet 0.1 mg PO BID propranolol 10 mg tablet 10 mg PO TID sertraline 50 mg tablet 50 mg PO DAILY quetiapine 50 mg tablet 150 mg PO BEDTIME melatonin 5 mg tablet 5 mg PO BEDTIME sulfamethoxazole-trimethoprim 800-160 mg tablet 1 tab PO BID omeprazole 40 mg capsule,delayed release(DR/EC) 40 mg PO DAILY phenazopyridine 100 mg tablet 100 mg PO TID PRN (Reason: Bladder Spasms)
[2023-03-27 22:24] LABS: Appearance Urine Clear; Color Urine Yellow; Glucose Urine UA Negative (Negative); Leukocyte Esterase Urine Negative (Negative); Nitrite Urine Negative (Negative); PH 5.5 (5.0-9.0); Specific Gravity - Urine 1.015 (1.005-1.025); UMIC TRIGGER UA YES; Urine Blood Trace (Negative); Urine Ketones Trace mg/dL (Negative); Urine Protein Negative (Neg-Trace)
[2023-03-27 22:29] LABS: Bacteria Urine None Seen (None Seen); Hyaline Casts Urine 0-2 /LPF (0-2); RBC Urine 0-2 /HPF (0-2); Squamous Epithelial Cell Urine 0-2 /HPF (0-2); WBC Urine 0-5 /HPF (0-5)
[2023-03-27 22:31] LABS: MANUAL DIFF FLAG NO
[2023-03-27 22:33] LABS: Amphetamine Screen Urine Not Detected (Not Detect); Barbiturates, Urine Not Detected (Not Detect); Benzodiazepines Screen Urine POSITIVE (Not Detect); Cannabinoid Screen Urine Not Detected (Not Detect); Cocaine Screen Urine Not Detected (Not Detect); Fentanyl, urine Not Detected (Not Detect); Opiate Screen Urine Not Detected (Not Detect); Phencyclidine Screen Urine Not Detected (Not Detect)
[2023-03-27 22:35] LABS: Basophils Absolute Auto 0.1 X10*3/uL (0.0-0.2); Basophils Percent Auto 0.9 % (0-2); Eosinophils Absolute Auto 0.2 X10*3/uL (0.0-0.4); Eosinophils Percent Auto 2.7 % (0-4); Hematocrit 33.7 % (37.0-47.0); Hemoglobin 11.1 g/dl (12.0-16.0); Imm Gran Abs Auto 0.01 X10*3/uL (0.00-0.03); Imm Gran Pct Auto 0.2 % (0.0-0.4); Lymphocytes Absolute Auto 3.4 X10*3/uL (1.2-4.9); Lymphocytes Percent Auto 58.4 % (20-40); Mean Corpuscular HGB Conc 32.9 g/dl (31.0-35.0); Mean Corpuscular Hemoglobin 32.3 pg (27.0-33.0); Mean Platelet Volume 9.4 fL (9.4-12.3); Monocytes Absolute Auto 0.5 X10*3/uL (0.1-1.2); Monocytes Percent Auto 8.9 % (2-11); Neutrophils Absolute Auto 1.7 x10*3/uL (2.0-8.3); Neutrophils Percent Auto 28.9 % (45-73); Platelet Count 291 X10*3/uL (160-400); Red Blood Count 3.44 X10*6/uL (4.20-5.50); Red Cell Distribution Width 14.7 % (11.0-16.0); White Blood Count 5.9 X10*3/uL (4.8-10.8)
[2023-03-27 22:58] LABS: Alanine Aminotransferase 14 U/L (0-31); Alkaline Phosphatase 72 U/L (39-117); Anion Gap 19 (12-20); Aspartate Amino Transferase 16 U/L (5-31); Bilirubin Total 0.2 mg/dL (0.0-1.0); Blood Urea Nitrogen 19 mg/dL (9-16); Calcium 9.8 mg/dL (8.4-10.2); Carbon Dioxide 19 mmol/L (22-29); Chloride 110 mmol/L (96-108); Creatinine Clr Calc Pharmacy 71.3; Estimated Glomerular Filt Rate > 60; Ethanol 171 mg/dL; Glucose Random 115 mg/dL (60-115); Magnesium 1.9 mg/dL (1.6-2.6); Potassium 3.4 mmol/L (3.3-5.1); Sodium 145 mmol/L (135-145); Total Protein 7.7 g/dL (6.5-8.0)
[2023-03-27 23:03] LABS: Acetaminophen LAB < 17 mcg/mL (<30)
[2023-03-27 23:09] VITALS: BP 120/62; PULSE 98; RESP 18; TEMP 36.4; O2SAT 95
[2023-03-27] MEDS: QUEtiapine Fumarate 50 MG TABLET 150 MG PO (23:14)
[2023-03-27] MEDS: cloNIDine HCL 0.1 MG TABLET PO (23:14)
[2023-03-27] MEDS: Sulfamethox/Trimeth 800/160 TABLET 1 TAB PO (23:14)
[2023-03-27 23:20] LABS: TSH reflex Free T4 3.57 uIU/mL (0.32-4.0)
--- NOTE | 2023-03-28 05:52 | PC.NURSE ---
Patient slept through the night, no distress observed/reported, medication complaint, care consult ordered for suicidality/pending evaluation, behavior non concerning, VSS, will continue to monitor.
[2023-03-28] MEDS: Multivitamin TABLET 1 TAB PO (09:06)
[2023-03-28] MEDS: Sulfamethox/Trimeth 800/160 TABLET 1 TAB PO (09:12)
--- NOTE | 2023-03-28 09:15 | PC.NURSE ---
Pt refused Zoloft and clonidine. Took abt. as ordered. No dangerous behaviors noted.
== END 2023-03-28 09:36 | disposition home or self-care (01) ==
PROVIDERS: Emergency Provider Emergency Medicine; PCP Internal Medicine
DX: F10.129 Alcohol abuse with intoxication, unspecified (principal); R45.851 Suicidal ideations; Y90.9 Presence of alcohol in blood, level not specified; Z79.899 Other long term (current) drug therapy; Z71.41 Alcohol abuse counseling and surveillance of alcoholic
CPT/HCPCS: 36415; 80053; 80143; 80307; 81001; 83735; 84443; 85025; 99284; S9485

== ENCOUNTER 2023-03-30 20:01 | Emergency (ER) | payer OTHER, SELFPAY ==
[2023-03-30 20:13] VITALS: BP 129/76; PULSE 95; O2SAT 92
--- NOTE | 2023-03-30 20:14 | PC.NURSE ---
Pt brought to 17H per [facility]. Pt immediately became upset and states she does not want to sit in the segundo spot next to the nurses station and would rather be in a bed down the segundo near employee break room. Pt advised that she needs to be in the assigned hallway spot due to the beds down the segundo near employee break room not being a patient care area. Pt shows no evidence of learning and continues to yell and be disruptive to patient care area. Dr. Starr states pt can wait in waiting area. Pt ambulatory to waiting area with steady gait in no respiratory distress.
--- NOTE | 2023-03-30 20:25 | PC.NURSE ---
Pt arrives by EMS, was calm and cooperative. Per EMS, pt called 911 due to ETOH. No beds were available within the ED so this patient was assigned to 17H. This patient became irrate and started screaming at staff that she refused to sit in the bed and how dare we put her next to the nurses station so she can hear the nurses complain. Lexus, primary RN, explained to pt that no beds were available in rooms at this time. This patient started yelling at Lexus, security was called. MD Starr at bedside, stating that this patient was able to leave if she did not wish to stay. This RN attempted to walk her out and wished her a good day. This patient then started screaming at this RN. This patient was escorted off property by security.
== END 2023-03-30 21:00 | disposition left against medical advice (07) ==
LOC: HO.ED 21:36
PROVIDERS: Emergency Provider Emergency Medicine
DX: R41.82 Altered mental status, unspecified (principal)

== ENCOUNTER 2023-04-09 01:32 | Emergency (ER) | payer OTHER, SELFPAY ==
[2023-04-09 01:41] VITALS: BP 124/77; BP 142/74; PULSE 78; PULSE 95; RESP 18; O2SAT 98; O2SAT 99; BMI 31.2
--- NOTE | 2023-04-09 02:00 | PC.NURSE ---
pt biba. pt seeking detox for alcohol. per charge histotechnologist, pt okay to keep belongings at bedside, pt changed into hospital attire, fall risk sock in place. pt calm and cooperative
[2023-04-09 05:23] VITALS: BP 93/51; PULSE 85; RESP 14; TEMP 36.7; O2SAT 93
--- NOTE | 2023-04-09 07:16 | ED_ITS ---
HPI - Alcohol General Chief Complaint: ETOH/Substance Use Stated Complaint: seeking detox Time Seen by Provider: 04/09/23 06:58 Source: patient and EMS Mode of arrival: EMS Limitations: no limitations History of Present Illness HPI narrative: This is a 57-year-old female with a history of alcohol use disorder who presents to the ER seeking detox for alcohol. Patient reports she drinks 5 beers daily. Patient reports her last drink was last evening. Patient reports she left detox this weekend and has been drinking since. Patient reports while at detox her plan was to go to [facility]. Patient denies SI or HI. Patient has no physical complaints. Patient denies any additional substance use Related Data Home Medications Medication Instructions Recorded Confirmed multivitamin 1 tab PO DAILY 02/27/23 03/27/23 clonidine HCl 0.1 mg tablet 0.1 mg PO BID 03/02/23 03/27/23 melatonin 5 mg tablet 5 mg PO BEDTIME 03/02/23 03/27/23 propranolol 10 mg tablet 10 mg PO TID 03/02/23 03/27/23 quetiapine 50 mg tablet 150 mg PO BEDTIME 03/02/23 03/27/23 sertraline 50 mg tablet 50 mg PO DAILY 03/02/23 03/27/23 omeprazole 40 mg capsule,delayed 40 mg PO DAILY 03/21/23 03/27/23 release phenazopyridine 100 mg tablet 100 mg PO TID PRN Bladder Spasms 03/21/23 03/27/23 sulfamethoxazole 800 1 tab PO BID 03/27/23 03/27/23 mg-trimethoprim 160 mg tablet Previous Rx's Medication Instructions Recorded naproxen 500 mg tablet 500 mg PO BID PRN pain 7 days #14 03/24/23 tabs Allergies Allergy/AdvReac Type Severity Reaction Status Date / Time No Known Allergies Allergy Verified 03/23/23 23:13 [No Known Allergies*] Review of Systems Review of Systems: Yes all other systems are reviewed and are negative Constitutional: Constitutional: Reports no additional constitutional complaints, Denies body ache(s), Denies chills, Denies fever(s), Denies headache(s) and Denies weakness Eyes: Eyes: Reports no additional eye complaints and Denies change in vision ENT: Reports system reviewed and no additional complaints, except as docume nted, Denies dizziness, Denies headache(s), Denies nasal congestion, Denies nasal discharge and Denies neck pain Cardiovascular: Cardiovascular: Reports no additional cardiovascular complaints, Denies chest pain, Denies leg edema and Denies dyspnea Respiratory: Respiratory: Reports no additional respiratory complaints, Denies cough and Denies dyspnea Gastrointestinal: Gastrointestinal: Reports no additional gastrointestinal complaints, Denies abdominal pain, Denies diarrhea, Denies nausea and Denies vomiting Genitourinary: Genitourinary: Reports no additional female genitourinary complaints and Denies urinary incontinence Musculoskeletal: Musculoskeletal: Reports no additional musculoskeletal complaints, Denies back pain, Denies arthralgias, Denies joint swelling, Denies neck pain, Denies numbness and Denies tingling Integumentary/Breasts: Skin/Breast: Reports system reviewed and no additional complaints, except as docu and Denies rash Neurologic: Reports system reviewed and no additional complaints, except as documented, Denies dizziness, Denies headache(s), Denies numbness, Denies tingling and Denies weakness PMFSH Past Medical History Attestation statement: The following information was validated with the patient. Source: old records reviewed and nursing notes reviewed Medical History Depression ETOH abuse Mood disorder as late effect of traumatic brain injury Rash TBI (traumatic brain injury) Surgical History Hx of cystoscopy Social History Social History (Updated 03/24/23 @ 18:27 by Araceli Maya MD) Household Members: Unknown / Unable to assess Household Members Other:: Reports has been [employer] surfing. Housing: Apartment Alcohol intake: current Alcohol intake frequency: 3 or more drinks per day Alcohol type: beer and hard liquor Patient Tobacco Use Status: Never used Tobacco Smoked in Last 30 Days: No e-Cigarette/Vaping Use: Never Used Second Hand Smoke Exposure: No Use of substances other than those prescribed or required for medical reasons: No Substance Use Type: Caffiene Advance Directives: Yes Advance Directives on File: Yes Advance Directives Date on File: 05/06/21 Patient : No service: No Current occupational status: disabled Sexual orientation: Straight/Heterosexual Physical Exam ED Vital Signs: Vital Signs - 24 hr 04/09/23 01:41 04/09/23 05:23 04/09/23 08:49 Temperature 98.1 F Pulse Rate 95 85 87 Respiratory Rate 18 14 17 Blood Pressure 142/74 H 93/51 L 101/59 L Pulse Oximetry 99 93 94 Oxygen Delivery Method Room Air Room Air Room Air BMI result Body Mass Index 31.2 Const General: cooperative, healthy appearing, comfortable and no acute distress Orientation/consciousness: patient oriented x3 Limitations: no limitations HENMT Head: Yes normal to inspection Ears: hearing grossly normal bilaterally Eyes General: appearance normal, both eyes and all related structures Pupils: Equal, round and reactive pupils present Neck Neck: Yes normal visual inspection and Yes full ROM Chest Chest palpation & inspection: normal inspection of the chest Resp Effort & Inspection: normal respiratory effort Auscultation: clear to auscultation bilaterally Cardio Rate: regular rate Rhythm: regular rhythm Peripheral pulses: Peripheral pulses 2+ throughout GI Inspection: Yes normal to inspection Palpation (GI): Soft to palpation and nontender Back/Spine/Pelvis Thoracic/Lumbar Spine: thoracic and lumbar spine normal to inspection Skin General skin exam: no rashes or lesions noted Neuro General: patient oriented x3 and moves all extremities Cranial nerves: Yes Equal, round and reactive pupils present Cognition (Neuro): normal cognition Course Course Course Narrative: Patient did not want to wait to be seen by care team for potential detox bed placement. She is clinically sober. She is alert oriented and walking with a steady gait. Patient will be discharged home. Medical Decision Making Medical Decision Making [facility] Narrative: A 57-year-old female with history of alcohol use disorder here seeking detox for alcohol. No SI or HI. No physical complaints. No concern for acute ingestion or trauma Vitals are stable Patient will have COVID screen, drug screen, SUDE eval Differential Diagnosis Differential Diagnoses: The differential diagnosis associated with the presentation includes Alcohol use disorder, alcohol intoxication Admission/Observation Consideration of admission/observation: Escalation of care including admission/observation considered Patient has history of alcohol use disorder. Patient with no active withdrawal symptoms to suggest need for admission for management of alcohol withdrawal Lab Data [facility] Lab Attestation statement: I reviewed the patient's lab results. Labs: Lab Results 04/09/23 Range/Units 07:04 COVID-19 (GARCIA) Negative (Negative) COVID-19 Clin Com See Note Discharge Plan Discharge Clinical Impression: Alcoholic intoxication Patient Disposition: Home, Self-Care Instructions: Alcohol Intoxication (ED) Additional Instructions: Do were offered to meet with the recovery team to see would detox is were available but you declined this. you wanted to leave before this process occurred. Your welcome to return any time Prescriptions: No Action multivitamin Tablet 1 tab PO DAILY naproxen 500 mg tablet 500 mg PO BID PRN (Reason: pain) 7 Days Qty: 14 0RF clonidine HCl 0.1 mg tablet 0.1 mg PO BID propranolol 10 mg tablet 10 mg PO TID sertraline 50 mg tablet 50 mg PO DAILY quetiapine 50 mg tablet 150 mg PO BEDTIME melatonin 5 mg tablet 5 mg PO BEDTIME sulfamethoxazole-trimethoprim 800-160 mg tablet 1 tab PO BID omeprazole 40 mg capsule,delayed release(DR/EC) 40 mg PO DAILY phenazopyridine 100 mg tablet 100 mg PO TID PRN (Reason: Bladder Spasms) Referrals: Physician,Unknown J [Primary Care Provider] - Interventions: ED Discharge Assessment Last Done: 04/09/23 10:14 Discharge Date/Time: 04/09/23 10:33
[2023-04-09 07:33] LABS: COVID-19 Test Negative (Negative); IDNOW Serial# 6674DD1D
[2023-04-09 08:49] VITALS: BP 101/59; PULSE 87; RESP 17; O2SAT 94
--- NOTE | 2023-04-09 09:15 | PC.NURSE ---
Mag finishing - piv c/d/i. aox4. calm, coop. no sx withdrawal. VSS. po intake well- drinking fluids. no distress. breathing normally. no pain noted. no si/hi reported at this time.
--- NOTE | 2023-04-09 09:17 | MHC.RECOVRN ---
This sba underwriter met with patient, patient presented to ED seeking detox. Pt was awake to verbal command, sitting up in bed, awake, alert. Pt reports had been in treatment with success. Pt reports recurrence since Friday04/06/23, pt reports drinking daily 6-8 beers, several ETOH nips daily. Pt currently reports anxiety. Pt states goal to go treatment and onto further levels of care, CSS. Reviewed ATS bedsearch process with patient, patient verbalized understanding. This sba underwriter to begin ATS bedsearch process.
== END 2023-04-09 10:33 | disposition home or self-care (01) ==
PROVIDERS: Emergency Provider Emergency Medicine
DX: F10.129 Alcohol abuse with intoxication, unspecified (principal); Y90.9 Presence of alcohol in blood, level not specified; Z20.822 Contact with and (suspected) exposure to COVID-19; Z20.828 Contact with and (suspected) exposure to other viral communicable diseases; Z79.899 Other long term (current) drug therapy
CPT/HCPCS: 87635; 99285

== ENCOUNTER 2023-04-24 19:40 | Emergency (ER) | payer OTHER, SELFPAY ==
[2023-04-24 20:10] VITALS: BP 141/77; BP 162/100; PULSE 77; PULSE 81; RESP 18; TEMP 36.8; O2SAT 95; O2SAT 97; BMI 31.2
--- NOTE | 2023-04-24 20:44 | PC.NURSE ---
Pt BIBA for etoh use and SI. 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 She stated feeling really bad and wanting to hurt herself when sons friend called an ambulance. Pt reports that she needs help, having thoughts of taking all her gabapentin and ending it all . Pt changed over, belongings list completed by Rad and placed in locker #6 in the pod. sitter in place, primary nurse and charge nurse notified.
--- NOTE | 2023-04-24 22:54 | ED_ITS ---
HPI - Alcohol General Chief Complaint: Psychiatric Symptoms Stated Complaint: ETOH SI Time Seen by Provider: 04/24/23 20:58 Source: patient Mode of arrival: EMS Limitations: no limitations History of Present Illness HPI narrative: Patient comes to the emergency room complaining of alcohol intoxication. Patient's friend called. Patient denies any suicidal or homicidal ideation, denies any falls. Related Data Home Medications Medication Instructions Recorded Confirmed multivitamin 1 tab PO DAILY 02/27/23 03/27/23 clonidine HCl 0.1 mg tablet 0.1 mg PO BID 03/02/23 03/27/23 melatonin 5 mg tablet 5 mg PO BEDTIME 03/02/23 03/27/23 propranolol 10 mg tablet 10 mg PO TID 03/02/23 03/27/23 quetiapine 50 mg tablet 150 mg PO BEDTIME 03/02/23 03/27/23 sertraline 50 mg tablet 50 mg PO DAILY 03/02/23 03/27/23 omeprazole 40 mg capsule,delayed 40 mg PO DAILY 03/21/23 03/27/23 release phenazopyridine 100 mg tablet 100 mg PO TID PRN Bladder Spasms 03/21/23 03/27/23 sulfamethoxazole 800 1 tab PO BID 03/27/23 03/27/23 mg-trimethoprim 160 mg tablet Previous Rx's Medication Instructions Recorded naproxen 500 mg tablet 500 mg PO BID PRN pain 7 days #14 03/24/23 tabs Allergies Allergy/AdvReac Type Severity Reaction Status Date / Time No Known Allergies Allergy Verified 03/23/23 23:13 [No Known Allergies*] Review of Systems Review of Systems: Constitutional : No Weight loss, No Fever, No Chills, No Night Sweats, No Fatigue, No Malaise ENT/Mouth : No Hearing loss, No Ear Pain, No Nasal Congestion, No Sinus Pain, No Hoarseness, No sore throat, No Rhinorrhea, No Swallowing Difficulty Eyes: No Eye Pain, No Swelling, No Redness, No Foreign Body, No Discharge, No Vision Changes Cardiovascular : No Chest Pain, No SOB, No Dyspnea on Exertion, No Orthopnea, No Edema, No Palpitations Respiratory : No Cough, No Sputum, No Wheezing, No Smoke Exposure, No Dyspnea Gastrointestinal : No Nausea, No Vomiting, No Diarrhea, No Constipation, No abdominal Pain, No Hematochezia, No Melena Genitourinary : no irregular bleeding, No Dysuria, No Urinary Frequency, No Hematuria, No Urinary Incontinence, No Urgency, No Flank Pain, No Urinary Flow Changes, No Hesitancy Musculoskeletal : No joint pain, No Myalgias, No Joint Swelling Skin : No Skin Lesions, No rash Neuro : No Weakness, No Numbness, No Paresthesias, No Loss of Consciousness, No Dizziness, No Headache Psych : No Anxiety/Panic, No Depression, No SI/HI/AH/VH, admits to drinking more alcohol than usual. Heme/Lymph: No Bruising, No Bleeding,No Lymphadenopathy Endocrine : No Polyuria, No Polydipsia, No Temperature Intolerance [facility] Past Medical History Medical History Depression ETOH abuse Mood disorder as late effect of traumatic brain injury Rash TBI (traumatic brain injury) Surgical History Hx of cystoscopy Social History Social History (Updated 03/24/23 @ 18:27 by Araceli Maya MD) Household Members: Unknown / Unable to assess Household Members Other:: Reports has been [employer]. Housing: Apartment Alcohol intake: current Alcohol intake frequency: 3 or more drinks per day Alcohol type: beer and hard liquor Patient Tobacco Use Status: Never used Tobacco Smoked in Last 30 Days: No e-Cigarette/Vaping Use: Never Used Second Hand Smoke Exposure: No Use of substances other than those prescribed or required for medical reasons: No Substance Use Type: Caffiene Advance Directives: Yes Advance Directives on File: Yes Advance Directives Date on File: 05/06/21 Patient : No service: No Current occupational status: disabled Sexual orientation: Straight/Heterosexual Physical Exam ED Vital Signs: Vital Signs - 24 hr 04/24/23 20:10 Temperature 98.3 F Pulse Rate 77 Respiratory Rate 18 Blood Pressure 141/77 H Pulse Oximetry 97 Oxygen Delivery Method Room Air BMI result Body Mass Index 31.2 Const Other: Appearance: Alert. Oriented X3. No acute distress. Eyes: Pupils equal, round and reactive to light. ENT: Pharynx normal. Neck: Normal inspection. Neck supple. No lymph nodes noted. No crepitus CVS: Normal heart rate and rhythm. Pulses normal. Normal S1 and S2 Respiratory: No respiratory distress. Breath sounds normal. No Wheezing. No rales Abdomen: Soft and nontender. No rigidity. No distention. Skin: Skin warm and dry. Normal skin color. Normal skin turgor. Extremities: No lower extremity edema. No Lacerations. No Rash Neuro: Oriented X 3. No motor deficit. No sensory deficit. Moving all extremities. No slurred speech. CN 2 through 12 grossly intact Psych: calm, cooperative, intoxicated, speaking coherently Medical Decision Making Medical Decision Making [facility] Narrative: -patient is alert and oriented x3, no acute distress, intoxicated but talking was coherently. Vital stable -plan: Metabolize to freedom and discharge -patient is not SI or HI -patient declined detox Differential Diagnosis Differential Diagnoses: The differential diagnosis associated with the presentation includes (Alcohol intoxication, substance abuse, depression) Admission/Observation Consideration of admission/observation: Escalation of care including admission/observation considered (Patient will be under observation in the emergency room until ready for discharge) Discharge Plan Discharge Clinical Impression: Alcohol intoxication Patient Disposition: Still a Patient Prescriptions: No Action multivitamin Tablet 1 tab PO DAILY naproxen 500 mg tablet 500 mg PO BID PRN (Reason: pain) 7 Days Qty: 14 0RF clonidine HCl 0.1 mg tablet 0.1 mg PO BID propranolol 10 mg tablet 10 mg PO TID sertraline 50 mg tablet 50 mg PO DAILY quetiapine 50 mg tablet 150 mg PO BEDTIME melatonin 5 mg tablet 5 mg PO BEDTIME sulfamethoxazole-trimethoprim 800-160 mg tablet 1 tab PO BID omeprazole 40 mg capsule,delayed release(DR/EC) 40 mg PO DAILY phenazopyridine 100 mg tablet 100 mg PO TID PRN (Reason: Bladder Spasms) Interventions: [place]-Suicide Risk Severity Scale Last Done: 04/24/23 20:32
[2023-04-25 02:26] VITALS: PULSE 69; RESP 14; O2SAT 99
--- NOTE | 2023-04-25 02:26 | PC.NURSE ---
patient sleeping, respirations even and unlabored, skin pwd, no apparent distress. Plan for d/c in am when sober
--- NOTE | 2023-04-25 05:29 | PC.NURSE ---
Patient denies SI/HI, patient ambulated to the restroom with a slow, but a steady gait. Dr. Starr notified.
--- NOTE | 2023-04-25 05:54 | PC.NURSE ---
Patient is fully awake, alert and oriented x3, VSS. Patient denies any pain. Patient ambulate with a steady gait. Patient denies SI/HI, patient refuses to use detox services. Dr. Starr informed, plan for patient to be discharge. Patient is in agreement with discharge plan, she signed discharge notice and verbalized understanding of discharge instructions. Belongings returned to patient. Patient ate sunflower sandwich with jelly with lilian crow, tolerated well, no complains of nausea/vomiting.
[2023-04-25 06:07] VITALS: BP 139/86; PULSE 89; RESP 18; TEMP 36.8; O2SAT 99
== END 2023-04-25 06:08 | disposition home or self-care (01) ==
PROVIDERS: Emergency Provider Emergency Medicine; PCP Physician Assistant
DX: F10.120 Alcohol abuse with intoxication, uncomplicated (principal); Y90.9 Presence of alcohol in blood, level not specified; R45.851 Suicidal ideations; F32.A Depression, unspecified; Z87.820 Personal history of traumatic brain injury; Z79.899 Other long term (current) drug therapy
CPT/HCPCS: 99284

== ENCOUNTER 2023-06-01 13:31 | Emergency (ER) | payer OTHER, SELFPAY ==
[2023-06-01 13:36] VITALS: BP 132/74; BP 137/74; PULSE 88; PULSE 93; RESP 18; TEMP 36.1; O2SAT 97; BMI 31.2
--- NOTE | 2023-06-01 14:11 | ED.PSYCH ---
HPI - Psych General Chief Complaint: Psychiatric Symptoms Stated Complaint: ETOH / SI Time Seen by Provider: 06/01/23 13:38 Source: patient and old records reviewed Mode of arrival: EMS Limitations: no limitations History of Present Illness HPI Narrative: 57 yo female with hx of ETOH abuse, mood disorder was in a [facility] program and about to go into sober living on she went up to the house and a dog was barking no one was outside and she thought only a cat was going to be there. She waited and no one showed up at the door. Her ride took another client to another appointment and they went back to the house again and again it was empty. She then got dropped off at bus stop and was going to go to her sons and spent the weekend drinking she felt SI this AM though she is better now vague SI but really wants to get treatment again. complaint: suicidal ideation and feels depressed Onset (ago): day(s) (2) Duration: getting worse History of same: Yes Relieving factors: none Exacerbating factors: alcohol Context: recent alcohol abuse Associated psychiatric symptoms: depression and suicidal ideation Associated symptoms: denies other symptoms Treatments prior to arrival: none If self harm: admits thoughts of self harm Related Data Home Medications Medication Instructions Recorded Confirmed acetaminophen 325 mg tablet 650 mg PO Q6H PRN Pain 06/01/23 06/01/23 calcium-vit B complx-FA ER 115 1 tab PO DAILY 06/01/23 06/01/23 mg-50 mg-0.4 mg tablet,extended release (Complex B-50) gabapentin 600 mg tablet 600 mg PO BEDTIME 06/01/23 06/01/23 hydroxyzine HCl 50 mg tablet 50 mg PO Q6H PRN anxiety 06/01/23 06/01/23 ibuprofen 600 mg tablet 600 mg PO TID PRN Pain 06/01/23 06/01/23 melatonin 5 mg tablet 5 mg PO BEDTIME PRN Insomnia 06/01/23 06/01/23 quetiapine 50 mg tablet 150 mg PO BEDTIME PRN Insomnia 06/01/23 06/01/23 venlafaxine 37.5 mg 75 mg PO DAILY 06/01/23 06/01/23 capsule,extended release 24 hr Allergies Allergy/AdvReac Type Severity Reaction Status Date / Time No Known Allergies Allergy Verified 03/23/23 23:13 [No Known Allergies*] Review of Systems Review of Systems: Constitutional : No Fever, No Chills ENT/Mouth : No Ear Pain, No Nasal Congestion, No sore throat Eyes: No Eye Pain, No Swelling, No Redness Cardiovascular : No Chest Pain, No SOB Respiratory : No Cough, No Sputum, No Dyspnea Gastrointestinal : No Nausea, No Vomiting, No Diarrhea, No Hematochezia, No Melena Genitourinary : No Dysuria, No Urinary Frequency, No Hematuria Musculoskeletal : No Myalgias Skin : No Skin Lesions, No rash Neuro : No Weakness, No Numbness, No Paresthesias, No Dizziness, No Headache Psych : positive Anxiety, positive Depression, positive SI no HI Heme/Lymph: No Lymphadenopathy Endocrine : No Polyuria, No Polydipsia All other systems reviewed and are negative [facility] Past Medical History Attestation statement: The following information was validated with the patient. Source: old records reviewed Medical History Rash ETOH abuse TBI (traumatic brain injury) Mood disorder as late effect of traumatic brain injury Depression Surgical History Hx of cystoscopy Social History Social History Household Members: Unknown / Unable to assess Household Members Other:: Reports has been [email or web address] surfing. Housing: Apartment Alcohol intake: current Alcohol intake frequency: 3 or more drinks per day Alcohol type: beer and hard liquor Patient Tobacco Use Status: Never used Tobacco e-Cigarette/Vaping Use: Never Used Second Hand Smoke Exposure: No Substance Use Type: Caffiene Advance Directives: Yes Advance Directives on File: Yes Advance Directives Date on File: 05/06/21 service: No Current occupational status: disabled Sexual orientation: Straight/Heterosexual Physical Exam Vital Signs: Vital Signs: Last Vital Signs Temp 97.0 F 06/01/23 13:36 Pulse 88 06/01/23 13:36 Resp 18 06/01/23 13:36 BP 137/74 06/01/23 13:36 Pulse Ox 97 06/01/23 13:36 O2 Del Method Room Air 06/01/23 13:36 BMI result Body Mass Index 31.2 Appearance: Alert. Oriented X3. No acute distress. Eyes: Pupils equal, round and reactive to light. ENT: Pharynx normal. Neck: Normal inspection. Neck supple. CVS: Normal heart rate and rhythm. Pulses normal. Respiratory: No respiratory distress. Breath sounds normal. Abdomen: Soft and nontender. Skin: Skin warm and dry. Normal skin color. Normal skin turgor. Extremities: No lower extremity edema. No calf ttp Neuro: Oriented X 3. No motor deficit. No sensory deficit. CN 2-12 intact Course Course Course Narrative: Physician observation started at 252pm. Patient placed in physician observation because the patient needed more time for CARE team to assess the need for psych admission. At the time observation was started the patient's vitals were stable, patient is alert and oriented , Neuro: nonfocal, CV RRR, Lungs clear Medical Decision Making Medical Decision Making [facility] Narrative: 57 yo female with PMH of ETOH abuse, mood disorder here with c/o ETOH use recent relapse and vague SI that is improving after having issue with sober living house please see HPI she has no medical complaints - will obtain labs and CARE team consult. Differential Diagnosis Differential Diagnoses: The differential diagnosis associated with the presentation includes alcohol abuse, mood disorder Admission/Observation Consideration of admission/observation: Escalation of care including admission/observation considered observe for CARE team to see patient Consult Healthcare Provider Management of the patient was discussed with: Behavioral Health Provider Lab Data [facility] Lab Attestation statement: I reviewed the patient's lab results. Labs: Lab Results 06/01/23 Range/Units 14:00 Urine Color Yellow Urine Appearance Clear Urine pH 5.5 (5.0-9.0) Ur Specific [place] <= 1.005 (1.005-1.025) Urine Protein Negative (Neg-Trace) mg/dL Urine Glucose (UA) Negative (Negative) mg/dL Urine Ketones Negative (Negative) mg/dL Urine Blood Negative (Negative) Urine Nitrite Negative (Negative) Ur Leukocyte Esterase Negative (Negative) Urine Opiates Screen Not Detected (Not Detect) Urine Fentanyl Screen Not Detected (Not Detect) Ur Barbiturates Screen Not Detected (Not Detect) Ur Phencyclidine Scrn Not Detected (Not Detect) Ur Amphetamines Screen Not Detected (Not Detect) U Benzodiazepines Scrn Not Detected (Not Detect) Urine Cocaine Screen Not Detected (Not Detect) U Marijuana (THC) Screen Not Detected (Not Detect) Independent Historian Clinical information obtained from an independent historian. History obtained from or confirmed by: EMS External Record Review External record reviewed: Inpatient record Social Determinants Patient?s care significantly limited by Social Determinants of Health including: Inadequate housing, Low income and Problems related to primary support group Discharge Plan Discharge Clinical Impression: Alcohol abuse Patient Disposition: Still a Patient Prescriptions: No Action gabapentin 600 mg tablet 600 mg PO BEDTIME venlafaxine 37.5 mg capsule,extended release 24hr 75 mg PO DAILY acetaminophen 325 mg tablet 650 mg PO Q6H PRN (Reason: Pain) hydroxyzine HCl 50 mg tablet 50 mg PO Q6H PRN (Reason: anxiety) ibuprofen 600 mg tablet 600 mg PO TID PRN (Reason: Pain) Complex B-50 115-50-0.4 mg tablet extended release 1 tab PO DAILY quetiapine 50 mg tablet 150 mg PO BEDTIME PRN (Reason: Insomnia) melatonin 5 mg tablet 5 mg PO BEDTIME PRN (Reason: Insomnia) Interventions: [place]-Suicide Risk Severity Scale Last Done: 06/01/23 13:36
--- NOTE | 2023-06-01 21:42 | PC.NURSE ---
This rewriter assumed care of this Pt at 2100. Pt calm and cooperative, A&Ox3, laying on stretcher, reports 10/ chronic back pain. States I'm here to talk to someone, theres so much going on, I was in a program and returned to [place] doe SI/HI.
--- NOTE | 2023-06-01 22:21 | MHC.CARE ---
Pt sleeping and unable to be assessed at this time. CARE team will attempt again in the AM.
[2023-06-02 00:36] VITALS: BP 150/93; PULSE 95; RESP 18; TEMP 36.6; O2SAT 98
--- NOTE | 2023-06-02 06:42 | PC.NURSE ---
Patient slept through the night, no distress observed/reported, med rec completed/medication compliant, Ativan 2 mg PO administered at 0300 for comfort with + effect, care consult ordered/pending evaluation, VSS, asymptomatic of withdrawal at this time time but may withdraw, labs completed/resulted, will continue to monitor.
== END 2023-06-02 07:47 | disposition home or self-care (01) ==
PROVIDERS: Emergency Provider Emergency Medicine
DX: F33.1 Major depressive disorder, recurrent, moderate (principal); R45.851 Suicidal ideations; F10.10 Alcohol abuse, uncomplicated; Y90.9 Presence of alcohol in blood, level not specified; Z79.899 Other long term (current) drug therapy
CPT/HCPCS: 36415; 80053; 80076; 80143; 80179; 80307; 81003; 82248; 83735; 85025; 96374; 96376; 99284

== ENCOUNTER 2023-06-02 19:58 | Emergency (ER) | payer OTHER, SELFPAY ==
[2023-06-02 20:03] VITALS: BP 128/76; PULSE 82; O2SAT 98
[2023-06-02 20:15] VITALS: BP 124/78; PULSE 90; RESP 18; TEMP 36.8; O2SAT 100; BMI 31.2
--- NOTE | 2023-06-02 20:29 | ED.PSYCH ---
HPI - Psych General Chief Complaint: Psychiatric Symptoms Stated Complaint: ETOH SI W PLAN Time Seen by Provider: 06/02/23 20:02 Source: patient Mode of arrival: EMS Limitations: no limitations History of Present Illness HPI Narrative: Patient comes to the emergency room complaining alcohol intoxication. Patient states that she was recently discharged from a rehab, states she was sober for about 1 month, and she was supposed to go to sober living but no one was at the home. Patient went to visit her son in [place], drank alcohol and relapsed. Patient tearful, angry at herself, stating she was suicidal without a plan. Patient states she has never attempted to hurt herself before Related Data Home Medications Medication Instructions Recorded Confirmed acetaminophen 325 mg tablet 650 mg PO Q6H PRN Pain 06/01/23 06/01/23 calcium-vit B complx-FA ER 115 1 tab PO DAILY 06/01/23 06/01/23 mg-50 mg-0.4 mg tablet,extended release (Complex B-50) gabapentin 600 mg tablet 600 mg PO BEDTIME 06/01/23 06/01/23 hydroxyzine HCl 50 mg tablet 50 mg PO Q6H PRN anxiety 06/01/23 06/01/23 ibuprofen 600 mg tablet 600 mg PO TID PRN Pain 06/01/23 06/01/23 melatonin 5 mg tablet 5 mg PO BEDTIME PRN Insomnia 06/01/23 06/01/23 quetiapine 50 mg tablet 150 mg PO BEDTIME PRN Insomnia 06/01/23 06/01/23 venlafaxine 37.5 mg 75 mg PO DAILY 06/01/23 06/01/23 capsule,extended release 24 hr Allergies Allergy/AdvReac Type Severity Reaction Status Date / Time No Known Allergies Allergy Verified 03/23/23 23:13 [No Known Allergies*] Review of Systems Review of Systems: Constitutional : No Weight loss, No Fever, No Chills, No Night Sweats, No Fatigue, No Malaise ENT/Mouth : No Hearing loss, No Ear Pain, No Nasal Congestion, No Sinus Pain, No Hoarseness, No sore throat, No Rhinorrhea, No Swallowing Difficulty Eyes: No Eye Pain, No Swelling, No Redness, No Foreign Body, No Discharge, No Vision Changes Cardiovascular : No Chest Pain, No SOB, No Dyspnea on Exertion, No Orthopnea, No Edema, No Palpitations Respiratory : No Cough, No Sputum, No Wheezing, No Smoke Exposure, No Dyspnea Gastrointestinal : No Nausea, No Vomiting, No Diarrhea, No Constipation, No abdominal Pain, No Hematochezia, No Melena Genitourinary : no irregular bleeding, No Dysuria, No Urinary Frequency, No Hematuria, No Urinary Incontinence, No Urgency, No Flank Pain, No Urinary Flow Changes, No Hesitancy Musculoskeletal : No joint pain, No Myalgias, No Joint Swelling Skin : No Skin Lesions, No rash Neuro : No Weakness, No Numbness, No Paresthesias, No Loss of Consciousness, No Dizziness, No Headache Psych : No Anxiety/Panic, No Depression, No SI/HI/AH/VH, admits to alcohol relapse Heme/Lymph: No Bruising, No Bleeding,No Lymphadenopathy Endocrine : No Polyuria, No Polydipsia, No Temperature Intolerance PMFSH Past Medical History Medical History Rash ETOH abuse TBI (traumatic brain injury) Mood disorder as late effect of traumatic brain injury Depression Surgical History Hx of cystoscopy Social History Social History Household Members: Unknown / Unable to assess Household Members Other:: Reports has been [employer] surfing. Housing: Apartment Alcohol intake: current Alcohol intake frequency: 3 or more drinks per day Alcohol type: beer and hard liquor Patient Tobacco Use Status: Never used Tobacco e-Cigarette/Vaping Use: Never Used Second Hand Smoke Exposure: No Substance Use Type: Caffiene Advance Directives: Yes Advance Directives on File: Yes Advance Directives Date on File: 05/06/21 service: No Current occupational status: disabled Sexual orientation: Straight/Heterosexual Physical Exam Vital Signs: Vital Signs: BMI result Body Mass Index 31.2 Const: Other: Appearance: Alert. Oriented X3. No acute distress. Eyes: Pupils equal, round and reactive to light. ENT: Pharynx normal. Neck: Normal inspection. Neck supple. No lymph nodes noted. No crepitus CVS: Normal heart rate and rhythm. Pulses normal. Normal S1 and S2 Respiratory: No respiratory distress. Breath sounds normal. No Wheezing. No rales Abdomen: Soft and nontender. No rigidity. No distention. Skin: Skin warm and dry. Normal skin color. Normal skin turgor. Extremities: No lower extremity edema. No Lacerations. No Rash Neuro: Oriented X 3. No motor deficit. No sensory deficit. Moving all extremities. No slurred speech. CN 2 through 12 grossly intact Psych: calm, cooperative, tearful Course Course Course Narrative: -all of patient's labs pending -care team consult in the morning -patient states that she is not suicidal but would like to try detox again. -patient states she is vaguely suicidal, however, denies that she would ever hurt herself. Patient is not on a Section 12. -physician [facility] started at 20:30 -sign-out given to Dr. Gibson Medical Decision Making Differential Diagnosis Differential Diagnoses: The differential diagnosis associated with the presentation includes (Alcohol intoxication, anxiety, depression) Admission/Observation Consideration of admission/observation: Escalation of care including admission/observation considered (Patient will remain under observation until evaluated by the care team.) Critical Care Time Critical Care Time Critical Care Time: Yes Total Critical Care Time: 30 Attestation: I have personally provided critical care time. Time includes review of lab data, radiology results, discussion with consultants, and monitoring for potential decompensation. Intervention performed as documented. Discharge Plan Discharge Clinical Impression: Alcohol intoxication Patient Disposition: Still a Patient Prescriptions: No Action gabapentin 600 mg tablet 600 mg PO BEDTIME venlafaxine 37.5 mg capsule,extended release 24hr 75 mg PO DAILY acetaminophen 325 mg tablet 650 mg PO Q6H PRN (Reason: Pain) hydroxyzine HCl 50 mg tablet 50 mg PO Q6H PRN (Reason: anxiety) ibuprofen 600 mg tablet 600 mg PO TID PRN (Reason: Pain) Complex B-50 115-50-0.4 mg tablet extended release 1 tab PO DAILY quetiapine 50 mg tablet 150 mg PO BEDTIME PRN (Reason: Insomnia) melatonin 5 mg tablet 5 mg PO BEDTIME PRN (Reason: Insomnia)
--- NOTE | 2023-06-02 20:30 | MHC.CARE ---
CARE team to do consult when patient is clinically sober, Dr. Corea reports pt was just discharged from rehab and relapsed on alcohol. Currently endorsing passive SI, however legally intoxicated. Consult to be done in AM.
--- NOTE | 2023-06-02 20:30 | PC.NURSE ---
Patient presents for ETOH with Suicidal thoughts. Patient is tearful because she feels like a fuck up. Patient verbalizes a desire to not drink anymore and feels that she had done well in [place] because she was away from her usual stressors and people.
--- NOTE | 2023-06-03 03:30 | PC.NURSE ---
Addendum entered by Milo Mojica RN 06/03/23 03:45: Entered in error under incorrect user. This RN assumed care at initial time of this note as follows: Assumed care of pt. Pt lying on stretcher, no acute medical or behavioral concerns at this time. Eyes closed, respirations even and unlabored. Continuing safety monitoring and plan of care. Original Note: Assumed care of pt. Pt lying on stretcher, no acute medical or behavioral concerns at this time. Eyes closed, respirations even and unlabored. Continuing safety monitoring and plan of care.
--- NOTE | 2023-06-03 06:11 | PC.NURSE ---
Pt lying on stretcher, no acute medical or behavioral concerns at this time. Eyes closed, respirations even and unlabored. Continuing safety monitoring and plan of care.
[2023-06-03 06:21] VITALS: BP 145/77; PULSE 111; RESP 19; TEMP 36.5; O2SAT 96
[2023-06-03 08:26] VITALS: BP 137/87; PULSE 104; RESP 18; TEMP 36.5; O2SAT 99
--- NOTE | 2023-06-03 09:02 | MHC.CARE ---
Patient seen this morning, requesting to d/c to see her transformation coach who is through the [facility]. She denies SI, is future oriented to seeing her transformation coach. She denies HI, denies AH/VH. Mood anxious, affect congruent. Appears to have fair insight into her struggles with substance abuse and housing and has support in the community for recovery. Encouraged to look into getting [facility] for housing related concerns. Discussed with ED attending MD Andrew, who is in agreement with plan for discharge.
== END 2023-06-03 09:18 | disposition home or self-care (01) ==
PROVIDERS: Emergency Provider Emergency Medicine
DX: F10.129 Alcohol abuse with intoxication, unspecified (principal); Y90.9 Presence of alcohol in blood, level not specified; R45.851 Suicidal ideations; R00.0 Tachycardia, unspecified; Z79.899 Other long term (current) drug therapy
CPT/HCPCS: 36415; 80053; 80143; 80179; 80307; 81003; 85025; 99284; 99285

== ENCOUNTER 2023-06-06 18:15 | Emergency (ER) | payer OTHER, SELFPAY ==
[2023-06-06 18:22] VITALS: BP 160/90; PULSE 96; O2SAT 95
[2023-06-06 18:23] VITALS: PULSE 88; RESP 20; TEMP 36.6; O2SAT 98; BMI 25.8
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
--- NOTE | 2023-06-06 20:35 | PC.NURSE ---
pt resting comfortably on stretcher, unbale to complete worklist at this time
--- NOTE | 2023-06-06 23:18 | PC.NURSE ---
Pt awoke and changed appropriately, resting comfortable on stretcher
--- NOTE | 2023-06-07 04:00 | PC.NURSE ---
pt sleeping comfortably at this time , respirations equal and unlabored
[2023-06-07 05:44] VITALS: BP 128/85; PULSE 97; TEMP 36.5; O2SAT 98
--- NOTE | 2023-06-07 05:53 | PC.NURSE ---
ambulated with steady gait
== END 2023-06-07 05:54 | disposition home or self-care (01) ==
PROVIDERS: Emergency Provider Emergency Medicine Emergency Medical Services
DX: F10.20 Alcohol dependence, uncomplicated (principal); Y90.9 Presence of alcohol in blood, level not specified; Z87.820 Personal history of traumatic brain injury
CPT/HCPCS: 99282; 99284

== ENCOUNTER 2023-06-14 21:35 | Emergency (ER) | payer OTHER, SELFPAY ==
[2023-06-14] MEDS: diphenhydrAMINE HCL 50 MG/ML VIAL IM (21:50)
[2023-06-14] MEDS: Haloperidol Lactate 5 MG/ML VIAL 10 MG IM (21:50)
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
[2023-06-14 21:56] VITALS: BP 112/80; PULSE 106; RESP 22; O2SAT 96; BMI 29.3
[2023-06-14 22:00] VITALS: BP 136/76; PULSE 102; RESP 16; O2SAT 94
[2023-06-14 22:20] VITALS: PULSE 96; RESP 16; O2SAT 95
[2023-06-14 22:35] VITALS: PULSE 92; RESP 18; O2SAT 96
[2023-06-14 22:45] VITALS: BP 100/61; PULSE 94; RESP 15; TEMP 36.6; O2SAT 98
[2023-06-14 23:02] LABS: MANUAL DIFF FLAG NO
[2023-06-14 23:03] LABS: Basophils Percent Auto 0.5 % (0-2); Eosinophils Absolute Auto 0.2 X10*3/uL (0.0-0.4); Hematocrit 35.7 % (37.0-47.0); Imm Gran Abs Auto 0.01 X10*3/uL (0.00-0.03); Imm Gran Pct Auto 0.2 % (0.0-0.4); Lymphocytes Absolute Auto 2.7 X10*3/uL (1.2-4.9); Lymphocytes Percent Auto 47.2 % (20-40); Mean Corpuscular HGB Conc 33.6 g/dl (31.0-35.0); Mean Corpuscular Hemoglobin 31.3 pg (27.0-33.0); Mean Platelet Volume 9.8 fL (9.4-12.3); Monocytes Absolute Auto 0.5 X10*3/uL (0.1-1.2); Monocytes Percent Auto 9.2 % (2-11); Neutrophils Absolute Auto 2.3 x10*3/uL (2.0-8.3); Neutrophils Percent Auto 39.9 % (45-73); Platelet Count 212 X10*3/uL (160-400); Red Blood Count 3.84 X10*6/uL (4.20-5.50); White Blood Count 5.6 X10*3/uL (4.8-10.8)
--- NOTE | 2023-06-14 23:07 | PC.NURSE ---
pt denies SI at this time, reports she feels just depressed . chief design branch aware
--- NOTE | 2023-06-14 23:12 | PC.NURSE ---
late entry: pt came in via ambulance, per EMS pt was calm and cooperative until arrival. At arrival patient was screaming just [address] me, please overdose me, I need it . Pt reports drinking multiple alcoholic beverages today . Pt continues to yell, attempts to exit ED. Hola Nassar requested IM injection to help pt calm down. Pt agreeable to this. GREGORY Baig also speaking with patient due to good rapport. Pt took IM injections, continued to speak with GREGORY Baig and eventually calmed down enough to allow this RN to change her over. Pt has since been sleeping, respirations even and unlabored. This RN did place patient on 2L O2 due to desat down to 89%
[2023-06-14 23:13] LABS: Amphetamine Screen Urine Not Detected (Not Detect); Barbiturates, Urine Not Detected (Not Detect); Benzodiazepines Screen Urine Not Detected (Not Detect); Cannabinoid Screen Urine Not Detected (Not Detect); Cocaine Screen Urine Not Detected (Not Detect); Fentanyl, urine Not Detected (Not Detect); Opiate Screen Urine Not Detected (Not Detect); Phencyclidine Screen Urine Not Detected (Not Detect)
[2023-06-14 23:17] LABS: Alanine Aminotransferase 15 U/L (0-31); Albumin Level 3.9 g/dL (3.5-5.0); Alkaline Phosphatase 75 U/L (39-117); Anion Gap 17 (12-20); Aspartate Amino Transferase 26 U/L (5-31); Bilirubin Total 0.3 mg/dL (0.0-1.0); Blood Urea Nitrogen 14 mg/dL (9-16); Calcium 9.2 mg/dL (8.4-10.2); Carbon Dioxide 22 mmol/L (22-29); Chloride 107 mmol/L (96-108); Creatinine Clr Calc Pharmacy 60.1; Estimated Glomerular Filt Rate > 60; Ethanol 254 mg/dL; Glucose Random 116 mg/dL (60-115); Lipase 33 U/L (8-78); Potassium 3.1 mmol/L (3.3-5.1); Sodium 143 mmol/L (135-145); Total Protein 7.2 g/dL (6.5-8.0)
[2023-06-14 23:21] LABS: COVID-19 Test Negative (Negative); IDNOW Serial# BCCEAD1C
[2023-06-14 23:58] VITALS: PULSE 92; RESP 16; TEMP 37.1; O2SAT 98
--- NOTE | 2023-06-14 23:58 | PC.NURSE ---
pt continues to sleep, respirations even and unlabored, skin pwd, no apparent distress at this time
[2023-06-15 01:37] VITALS: BP 99/59; PULSE 92; RESP 15; TEMP 36.6; O2SAT 99
[2023-06-15 03:45] VITALS: PULSE 91; RESP 16; O2SAT 97
--- NOTE | 2023-06-15 07:47 | PC.NURSE ---
seen by care team
== END 2023-06-15 08:39 | disposition home or self-care (01) ==
PROVIDERS: Emergency Provider Emergency Medicine Emergency Medical Services
DX: F10.120 Alcohol abuse with intoxication, uncomplicated (principal); Y90.8 Blood alcohol level of 240 mg/100 ml or more; Z11.52 Encounter for screening for COVID-19; Z79.899 Other long term (current) drug therapy
CPT/HCPCS: 80053; 80307; 83690; 85025; 87635; 96372; 99284; 99285; J1200

== ENCOUNTER 2023-06-30 19:54 | Emergency (ER) | payer OTHER, SELFPAY ==
--- NOTE | ~2023-06-30 | XR_ITS ---
EXAMINATION: XR WRIST, LEFT CLINICAL INFORMATION: Deformity COMPARISON: None available. TECHNIQUE: PA, lateral, and oblique views of the left wrist. FINDINGS: Comminuted impacted distal radial fracture is seen with intra-articular extension and distal dorsal angulation by approximately 30 degrees. There is an associated minimally displaced ulnar styloid fracture as well. Carpal bones are normal anatomic alignment with mild degenerative changes at the first carpometacarpal joint. XR/XR wrist LT min 3V IMPRESSION: Comminuted impacted distal radial fracture with intra-articular extension and distal dorsal angulation. Minimally displaced ulnar styloid fracture.
--- NOTE | ~2023-06-30 | XR_ITS ---
EXAMINATION: XR WRIST, LEFT CLINICAL INFORMATION: Status post splint COMPARISON: Left wrist radiograph from 06/30/2023 TECHNIQUE: PA, lateral, and oblique views of the left wrist. FINDINGS: Interval placement of splint obscures fine osseous and soft tissue detail. Improved alignment of impacted intra-articular distal radial fracture with less apex volar angulation. Redemonstration of ulnar styloid fracture. Joint space alignment are otherwise maintained. Soft tissue swelling about the wrist. XR/XR wrist LT 2V IMPRESSION: 1. Interval placement of splint obscures fine osseous and soft tissue detail. 2. Improved alignment of impacted intra-articular distal radial fracture with less apex volar angulation. 3. Redemonstration of ulnar styloid fracture. 4. Soft tissue swelling about the wrist.
[2023-06-30 20:00] VITALS: BP 129/78; PULSE 84; O2SAT 99
[2023-06-30 20:13] VITALS: BP 127/67; PULSE 82; RESP 20; TEMP 36.4; O2SAT 95; BMI 33.7
--- NOTE | 2023-06-30 20:25 | PC.NURSE ---
security called for pt exchange consultant
--- NOTE | 2023-06-30 20:30 | PC.NURSE ---
Late entry: T/w was notified by Audi GARDNERT @ 2029 that pt had a fall in the bathroom. Audi states that he had escorted the pt to the bathroom with security for changeover. Per Audi, the patient had ambulated to the bathroom with a steady gait. He states the patient asked for privacy so he stepped out of the bathroom with security, states the door remained cracked so the pt was in plain view. Per Audi, he noted the patient to struggle putting on arlene patients and then fall onto left wrist. Audi states that he entered the bathroom when she began to struggle but was unable to assist her prior to the fall. Audi and assisted this patient up and back to bed into POC. Pt reporting left wrist pain, wrist noted to be deformed. T/w informed MD Andrew of the fall, MD Andrew at bedside for immediate evaluation, imaging of wrist ordered. Fall precautions in place, sitter at bedside. Primary RN Bernarda informed of incident/fall.
--- NOTE | 2023-06-30 20:34 | ED.ALCOHOL ---
HPI - Alcohol General Chief Complaint: ETOH/Substance Use Stated Complaint: ETOH FEELS UNSAFE Time Seen by Provider: 06/30/23 20:04 Source: patient and EMS Mode of arrival: EMS History of Present Illness HPI narrative: 57-year-old female who presents via ambulance and reports life stressors and feeling overwhelmed and is requesting is see crisis. Patient has vague thoughts of wanting to hurt herself but has no identifiable plan and denies HI. Patient is a daily alcohol user and admits to 3 nipped today and appears clinically to be intoxicated at this time. She is requesting detox. Related Data Home Medications Medication Instructions Recorded Confirmed gabapentin 600 mg tablet 600 mg PO BEDTIME 06/01/23 06/14/23 hydroxyzine HCl 50 mg tablet 50 mg PO Q6H PRN anxiety 06/01/23 06/14/23 melatonin 5 mg tablet 5 mg PO BEDTIME PRN Insomnia 06/01/23 06/14/23 quetiapine 50 mg tablet 150 mg PO BEDTIME PRN Insomnia 06/01/23 06/14/23 venlafaxine 37.5 mg 75 mg PO DAILY 06/01/23 06/14/23 capsule,extended release 24 hr Allergies Allergy/AdvReac Type Severity Reaction Status Date / Time No Known Allergies Allergy Verified 06/30/23 20:16 [No Known Allergies*] Review of Systems Review of Systems: Pertinent positives and negatives as stated in HPI [facility] Past Medical History Source: nursing notes reviewed Medical History Rash ETOH abuse TBI (traumatic brain injury) Mood disorder as late effect of traumatic brain injury Depression Surgical History Hx of cystoscopy Social History Social History Household Members: Unknown / Unable to assess Household Members Other:: Reports has been couch surfing. Housing: Apartment Alcohol intake: current Alcohol intake frequency: 3 or more drinks per day Alcohol type: beer and hard liquor Patient Tobacco Use Status: Never used Tobacco e-Cigarette/Vaping Use: Never Used Second Hand Smoke Exposure: No Substance Use Type: Caffiene Advance Directives: Yes Advance Directives on File: Yes Advance Directives Date on File: 05/06/21 service: No Current occupational status: disabled Sexual orientation: Straight/Heterosexual Physical Exam ED Vital Signs: Vital Signs - 24 hr 06/30/23 20:13 Temperature 97.6 F Pulse Rate 82 Respiratory Rate 20 Blood Pressure 127/67 Pulse Oximetry 95 Oxygen Delivery Method Room Air BMI result Body Mass Index 33.7 VITAL SIGNS: Reviewed. GENERAL: Well developed, well nourished, in no acute distress. HEAD: Normocephalic/atraumatic EYES: PERRLA, EOMI EARS: Ext canals without abnormality NOSE: Nares patent bilateral OROPHARYNX: no oral lesions noted, posterior pharynx clear NECK: Supple, no adenopathy LUNGS: Normal breath sounds. No adventitious sounds or accessory muscle use. SpO2<95> CARDIOVASCULAR: Regular rate and rhythm without noted murmurs ABDOMEN: Soft, non-tender, non-distended with bowel sounds. MUSCULOSKELETAL: No tenderness, deformities, or effusions noted on gross inspection. EXTREMITIES: No cyanosis, clubbing or edema. SKIN: Inspection of the skin reveals no rashes NEUROLOGIC: Alert and oriented x 4. Strength and sensation to light touch were grossly intact x 4 cranial nerves 2-12 are grossly intact. Medical Decision Making Medical Decision Making MDM Narrative: This is a 57-year-old female with history and clinical presentation consistent with alcohol use disorder and currently intoxicated. She was recently seen here and no plans to re-obtain lab work but will evaluate urine and alcohol level. Will provide patient with consultation with crisis as well as the recovery team. 2030: Informed that patient fell in the bathroom, left wrist is deformed and suspect fracture. 2221: Hematoma block was applied, mild reduction achieved with placement of sugar-tong splint, neurovascular is intact and patient is comfortable after the hematoma block. 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 Patient also received Tdap Signed out to Dr Simental - f/u labs, UA, Utox, and etoh - COnsult to Crisis Differential Diagnosis Differential Diagnoses: The differential diagnosis associated with the presentation includes Please see the discussion above Admission/Observation Consideration of admission/observation: Escalation of care including admission/observation considered Please see the discussion above Procedures Orthopedic Fracture Reduction Fracture #1: Time Out Performed: No Side: left Fracture Reduction Location: radius Analgesia: hematoma block Technique: traction/counter-traction Post Reduction X-rays Demonstrate: acceptable reduction Post-reduction neuro exam: intact Post-reduction vascular exam: intact Splint Applied: Yes Patient Tolerated Procedure: well Discharge Plan Discharge Clinical Impression: Fracture of distal end of left radius, Alcohol intoxication, Fracture of ulnar styloid, Suicidal ideation, Alcohol use disorder Patient Disposition: Still a Patient Prescriptions: No Action gabapentin 600 mg tablet 600 mg PO BEDTIME venlafaxine 37.5 mg capsule,extended release 24hr 75 mg PO DAILY hydroxyzine HCl 50 mg tablet 50 mg PO Q6H PRN (Reason: anxiety) quetiapine 50 mg tablet 150 mg PO BEDTIME PRN (Reason: Insomnia) melatonin 5 mg tablet 5 mg PO BEDTIME PRN (Reason: Insomnia)
--- NOTE | 2023-06-30 21:49 | PC.NURSE ---
MD at bedside with EDT for splint application.
[2023-06-30 22:44] LABS: MANUAL DIFF FLAG NO
[2023-06-30 22:46] LABS: Basophils Absolute Auto 0.1 X10*3/uL (0.0-0.2); Basophils Percent Auto 0.8 % (0-2); Eosinophils Absolute Auto 0.2 X10*3/uL (0.0-0.4); Eosinophils Percent Auto 2.3 % (0-4); Hematocrit 37.6 % (37.0-47.0); Hemoglobin 12.4 g/dl (12.0-16.0); Imm Gran Abs Auto 0.01 X10*3/uL (0.00-0.03); Imm Gran Pct Auto 0.1 % (0.0-0.4); Lymphocytes Absolute Auto 2.4 X10*3/uL (1.2-4.9); Lymphocytes Percent Auto 32.5 % (20-40); Mean Corpuscular Hemoglobin 30.9 pg (27.0-33.0); Mean Corpuscular Volume 93.8 fL (80.0-98.0); Monocytes Absolute Auto 0.5 X10*3/uL (0.1-1.2); Monocytes Percent Auto 7.2 % (2-11); Neutrophils Absolute Auto 4.1 x10*3/uL (2.0-8.3); Neutrophils Percent Auto 57.1 % (45-73); Platelet Count 336 X10*3/uL (160-400); Red Blood Count 4.01 X10*6/uL (4.20-5.50); White Blood Count 7.3 X10*3/uL (4.8-10.8)
[2023-06-30] MEDS: Diphth,Pertus(ACell),Tet Adult 0.5 ML SYRINGE IM (22:48)
[2023-06-30 22:56] LABS: Ethanol 110 mg/dL
[2023-06-30 22:59] LABS: Alanine Aminotransferase 14 U/L (0-31); Albumin Level 4.1 g/dL (3.5-5.0); Alkaline Phosphatase 66 U/L (39-117); Anion Gap 16 (12-20); Aspartate Amino Transferase 18 U/L (5-31); Bilirubin Total 0.3 mg/dL (0.0-1.0); Blood Urea Nitrogen 17 mg/dL (9-16); Calcium 9.7 mg/dL (8.4-10.2); Carbon Dioxide 25 mmol/L (22-29); Chloride 110 mmol/L (96-108); Creatinine Clr Calc Pharmacy 59.5; Estimated Glomerular Filt Rate 58; Glucose Random 112 mg/dL (60-115); Potassium 3.5 mmol/L (3.3-5.1); Sodium 147 mmol/L (135-145); Total Protein 7.4 g/dL (6.5-8.0)
--- NOTE | 2023-06-30 23:59 | PC.NURSE ---
1:1 sitter at bedside as pt made SI statements earlier. Pt denies SI/HI at this time. Resting at this time.
[2023-07-01] MEDS: Ibuprofen 600 MG TABLET PO (04:24)
[2023-07-01 04:30] VITALS: BP 154/84; PULSE 98; RESP 14; TEMP 36.6; O2SAT 99
--- NOTE | 2023-07-01 04:31 | PC.NURSE ---
Pt reports increased left wrist pain, 10/10, It's throbbing . Pt medicated with Ibuprofen po. Tolerated well. VSS. Unable to provide urine sample at this time. Monitoring ongoing.
--- NOTE | 2023-07-01 07:40 | PC.NURSE ---
assumed care of pt at 0700. pt woke up from sleeping asking to be discharged. 1:1 sitter at bedside for pt safety. per report, pt vague SI upon arrival but denies now. pt denies pain to site of UE fracture. splint in place. this RN spoke with pt and pt stated she still wants to speak with care team. pt ambulated to BR with steady gait. UA/Utox obtained and sent to lab. pt to be brought to the POD. report given to GREGORY Nice.
[2023-07-01 07:44] LABS: Appearance Urine Clear; Color Urine Yellow; Glucose Urine UA Negative (Negative); Leukocyte Esterase Urine Negative (Negative); Nitrite Urine Negative (Negative); PH 6.5 (5.0-9.0); Specific Gravity - Urine 1.025 (1.005-1.025); Urine Blood Negative (Negative); Urine Ketones Negative (Negative); Urine Protein Negative (Neg-Trace)
--- NOTE | 2023-07-01 07:49 | PC.NURSE ---
PT TRANSFER TO THE POD TO BED 6. PT A/O X 3 NO SOB/CHIDI NOTED SPEAKS IN FULL SENTENCES. AMB (I) GAIT STEADY. PT HAS SPLINT TO L LOWER FOREARM FOR L WRIST. PT REFUSED BREAKFAST PRIOR TO BE BEING TRANSFERRED TO THE POD. PT AWARE OF PLAN OF CARE.
[2023-07-01 07:51] LABS: Amphetamine Screen Urine Not Detected (Not Detect); Barbiturates, Urine Not Detected (Not Detect); Benzodiazepines Screen Urine POSITIVE (Not Detect); Cannabinoid Screen Urine Not Detected (Not Detect); Cocaine Screen Urine Not Detected (Not Detect); Fentanyl, urine Not Detected (Not Detect); Opiate Screen Urine Not Detected (Not Detect); Phencyclidine Screen Urine Not Detected (Not Detect)
[2023-07-01 08:10] VITALS: RESP 14
== END 2023-07-01 09:51 | disposition home or self-care (01) ==
PROVIDERS: Emergency Provider Student in an Organized Health Care Education/Training Program
DX: F10.120 Alcohol abuse with intoxication, uncomplicated (principal); Y90.5 Blood alcohol level of 100-119 mg/100 ml; R45.851 Suicidal ideations; S52.612A Displaced fracture of left ulna styloid process, initial encounter for closed fracture; S52.502A Unspecified fracture of the lower end of left radius, initial encounter for closed fracture; W18.30XA Fall on same level, unspecified, initial encounter; Y93.89 Activity, other specified; Y92.231 Patient bathroom in hospital as the place of occurrence of the external cause; Y99.9 Unspecified external cause status; F32.9 Major depressive disorder, single episode, unspecified; Z87.820 Personal history of traumatic brain injury; Z79.899 Other long term (current) drug therapy
CPT/HCPCS: 25650; 36415; 73100; 73110; 80053; 80307; 81003; 85025; 90471; 90715; 99285; S9485

== ENCOUNTER 2023-07-02 12:35 | Emergency (ER) | payer OTHER, SELFPAY ==
--- NOTE | 2023-07-02 12:57 | ED_ITS ---
HPI - General Adult General Chief complaint: ETOH/Substance Use Stated complaint: DEPRESSION,ETOH USE WANTS HELP PER EMS Time Seen by Provider: 07/02/23 12:54 Source: patient and EMS Mode of arrival: EMS Limitations: no limitations History of Present Illness HPI narrative: 57 years old with past medical history of alcohol abuse disorder, with history of withdrawals, shingles, anxiety, presented to the emergency room for alcohol intoxication. Patient called EMS because she is seeking for detox. Patient was discharged less than 48 hours ago for the same hospital where she presented with the same complaint. During the last thing in the emergency room patient while intoxicated, fell and broke her left wrist which was casted. Since her last discharge which happened because patient did not want detox 1 she has abrupt she reports no history of falls. Patient denies SI or HI but reports that her mood is not being the greatest over the past few weeks because the use of all coli is interfering with her quality of life. Patient reported that she does not have house of her own and sleeps at friend's house. Patient denies chest pain, shortness of breath, cough chills or fever No abdominal pain nausea or vomiting No headache ureter weakness, blurry vision or slurred speech Patient reports that she drink 4 nips and 4 beers today, last drink was approximately an hour prior to presentation. Patient reports that she drinks multiple nebs and beers per day but cannot quantify. Patient reported that in the past she had tremors but no withdrawal seizures. Related Data Home Medications Medication Instructions Recorded Confirmed gabapentin 600 mg tablet 600 mg PO BEDTIME 06/01/23 07/02/23 hydroxyzine HCl 50 mg tablet 50 mg PO Q6H PRN anxiety 06/01/23 07/02/23 melatonin 5 mg tablet 5 mg PO BEDTIME PRN Insomnia 06/01/23 07/02/23 quetiapine 50 mg tablet 150 mg PO BEDTIME PRN Insomnia 06/01/23 07/02/23 venlafaxine 37.5 mg 75 mg PO DAILY 06/01/23 07/02/23 capsule,extended release 24 hr acetaminophen 325 mg tablet 325 mg PO Q6-8H PRN Pain 07/01/23 07/02/23 ibuprofen 600 mg tablet 600 mg PO TID 07/01/23 07/02/23 Allergies Allergy/AdvReac Type Severity Reaction Status Date / Time No Known Allergies Allergy Verified 06/30/23 20:16 [No Known Allergies*] Review of Systems 2 Review of Systems: Yes all other systems are reviewed and are negative [facility] Past Medical History Medical History Rash ETOH abuse TBI (traumatic brain injury) Mood disorder as late effect of traumatic brain injury Depression Surgical History Hx of cystoscopy Social History Social History Household Members: Unknown / Unable to assess Household Members Other:: Reports has been [employer]. Housing: Apartment Alcohol intake: current Alcohol intake frequency: 3 or more drinks per day Alcohol type: beer and hard liquor Patient Tobacco Use Status: Never used Tobacco e-Cigarette/Vaping Use: Never Used Second Hand Smoke Exposure: No Substance Use Type: Caffiene Advance Directives: Yes Advance Directives on File: Yes Advance Directives Date on File: 05/06/21 service: No Current occupational status: disabled Sexual orientation: Straight/Heterosexual Physical Exam ED Vital Signs: Vital Signs - 24 hr 07/02/23 13:07 07/02/23 15:29 Temperature 97.5 F Pulse Rate 84 84 Respiratory Rate 16 15 Blood Pressure 136/75 127/70 Pulse Oximetry 94 93 Oxygen Delivery Method Room Air Room Air BMI result Body Mass Index 30.6 Const Other: General: Alert, Not in Distress, intoxicated, breath smells of alcohol Skin: No rash, warm HEENT: Atraumatic, No Exudate or Pharyngeal Erythema Resp: Normal Breath sounds bilaterally Cardio: Regular rate and Rhythm, Normal S1, S2 ABD: Abd soft, non tender, no guarding or rebound. Normal Bowel sounds. : No cva tenderness Neuro: Alert, oriented x4, PERRL Strenght 5/5 on all extremities Sensation is preserved in both lower and upper extremities Index to nose: normal Cranial Nerves II-XII grossly intact No dysarthria, or aphasia No neglet. Visual chmapion are normal bilaterally Psych: Cooperative, NO SI Course Reevaluation(s) Reevaluation #1: I personally reviewed patient lab work. CBC BMP unremarkable Patient etoh level is 125, patient will be clinically sober in 2.5 hours from her lab work which will be at 4 h. Otherwise she is resting comfortably in stretcher. Time: 14:28 Reevaluation #2: Patient is now clinically sober. Still interested in detox. The Librium 25 mg q.4 hours order Diet order Consult to Care team ordered Time: 15:56 Reevaluation #3: Discussed case with Care Team. Patient qualifies for a Section 35. This will be further addressed tomorrow morning. Plan for tonight is to keep the patient under CIUT protocol. Patient does have capacity to leave if she wants. Patient will be signed out to dr. mclaughlin. Time: 18:21 Medical Decision Making Medical Decision Making MDM Narrative: Patient presents to the emergency room requesting detox. Patient recently presented with same complaint left for detox was completed. Will reassess patient will to detox when she kal up Patient denies Falls after discharge for understands and she requires imaging. low risk for SI Differential Diagnosis etoh intoxication, drug abuse, etoh withdrawl Admission/Observation Consideration of admission/observation: Escalation of care including admission/observation considered Lab Data [facility] Lab Attestation statement: I reviewed the patient's lab results. 07/02/23 13:49 07/02/23 13:49 Labs: Lab Results 07/02/23 07/02/23 07/02/23 Range/Units 13:49 17:07 17:39 WBC 8.3 (4.8-10.8) X10*3/uL RBC 4.30 (4.20-5.50) X10*6/uL Hgb 13.3 (12.0-16.0) g/dl Hct 40.6 (37.0-47.0) % MCV 94.4 (80.0-98.0) fL MCH 30.9 (27.0-33.0) pg MCHC 32.8 (31.0-35.0) g/dl RDW 13.1 (11.0-16.0) % Plt Count 332 (160-400) X10*3/uL MPV 9.2 L (9.4-12.3) fL Immature Gran % (Auto) 0.2 (0.0-0.4) % Neut % (Auto) 59.8 (45-73) % Lymph % (Auto) 31.1 (20-40) % Hubbard % (Auto) 6.6 (2-11) % Eos % (Auto) 1.7 (0-4) % Baso % (Auto) 0.6 (0-2) % Lymph # (Auto) 2.6 (1.2-4.9) X10*3/uL Hubbard # (Auto) 0.6 (0.1-1.2) X10*3/uL Eos # (Auto) 0.1 (0.0-0.4) X10*3/uL Baso # (Auto) 0.1 (0.0-0.2) X10*3/uL Abs Immat Gran (auto) 0.02 (0.00-0.03) X10*3/uL Absolute Neuts (auto) 5.0 (2.0-8.3) x10*3/uL Absolute Nucleated RBC 0.000 (0.0-0.012) X10*3/uL Nucleated RBC % (auto) 0.0 (0.0-0.2) /100WBC Sodium 142 (135-145) mmol/L Potassium 3.7 (3.3-5.1) mmol/L Chloride 111 H (96-108) mmol/L Carbon Dioxide 23 (22-29) mmol/L Anion Gap 12 (12-20) BUN 15 (9-16) mg/dL Creatinine 0.81 (0.5-1.4) mg/dL Estim Creat Clear Calc 79.7 Estimated GFR > 60 Random Glucose 87 (60-115) mg/dL Calcium 9.6 (8.4-10.2) mg/dL Urine Color Yellow Urine Appearance Urine pH (5.0-9.0) Ur Specific [place] (1.005-1.025) Urine Protein (Neg-Trace) mg/dL Urine Glucose (UA) (Negative) mg/dL Urine Ketones (Negative) mg/dL Urine Blood (Negative) Urine Nitrite (Negative) Ur Leukocyte Esterase (Negative) Urine RBC (0-2) /HPF Urine WBC (0-5) /HPF Urine WBC Clumps Ur Squamous Epith Cells (0-2) /HPF Ur Transition Epith Cell Ur Renal Epithelial Cell Calcium Oxalate Crystal Leucine Crystals Cystine Crystals Tyrosine Crystals Other Crystals Urine Bacteria (None Seen) Urine Parasites Bilirubin Casts Epithelial Casts Fatty Casts Hyaline Casts (0-2) /LPF Granular Casts Waxy Casts Broad Casts RBC Casts WBC Casts Other Casts Urine Trichomonas Urine Yeast Urine Opiates Screen Not Detected (Not Detect) Urine Fentanyl Screen Not Detected (Not Detect) Ur Barbiturates Screen Not Detected (Not Detect) Ur Phencyclidine Scrn Not Detected (Not Detect) Ur Amphetamines Screen Not Detected (Not Detect) U Benzodiazepines Scrn POSITIVE H (Not Detect) Urine Cocaine Screen Not Detected (Not Detect) U Marijuana (THC) Screen Not Detected (Not Detect) Ethyl Alcohol 125 mg/dL COVID-19 (GARCIA) Negative (Negative) COVID-19 Clin Com See Note 07/02/23 07/02/23 07/02/23 Range/Units 17:39 17:39 17:39 WBC (4.8-10.8) X10*3/uL RBC (4.20-5.50) X10*6/uL Hgb (12.0-16.0) g/dl Hct (37.0-47.0) % MCV (80.0-98.0) fL MCH (27.0-33.0) pg MCHC (31.0-35.0) g/dl RDW (11.0-16.0) % Plt Count (160-400) X10*3/uL MPV (9.4-12.3) fL Immature Gran % (Auto) (0.0-0.4) % Neut % (Auto) (45-73) % Lymph % (Auto) (20-40) % Hubbard % (Auto) (2-11) % Eos % (Auto) (0-4) % Baso % (Auto) (0-2) % Lymph # (Auto) (1.2-4.9) X10*3/uL Hubbard # (Auto) (0.1-1.2) X10*3/uL Eos # (Auto) (0.0-0.4) X10*3/uL Baso # (Auto) (0.0-0.2) X10*3/uL Abs Immat Gran (auto) (0.00-0.03) X10*3/uL Absolute Neuts (auto) (2.0-8.3) x10*3/uL Absolute Nucleated RBC (0.0-0.012) X10*3/uL Nucleated RBC % (auto) (0.0-0.2) /100WBC Sodium (135-145) mmol/L Potassium (3.3-5.1) mmol/L Chloride (96-108) mmol/L Carbon Dioxide (22-29) mmol/L Anion Gap (12-20) BUN (9-16) mg/dL Creatinine (0.5-1.4) mg/dL Estim Creat Clear Calc Estimated GFR Random Glucose (60-115) mg/dL Calcium (8.4-10.2) mg/dL Urine Color Cancelled Urine Appearance Clear Cancelled Urine pH 5.5 Cancelled (5.0-9.0) Ur Specific [place] 1.010 (1.005-1.025) Urine Protein (Neg-Trace) mg/dL Urine Glucose (UA) (Negative) mg/dL Urine Ketones (Negative) mg/dL Urine Blood (Negative) Urine Nitrite (Negative) Ur Leukocyte Esterase (Negative) Urine RBC (0-2) /HPF Urine WBC (0-5) /HPF Urine WBC Clumps Ur Squamous Epith Cells (0-2) /HPF Ur Transition Epith Cell Ur Renal Epithelial Cell Calcium Oxalate Crystal Leucine Crystals Cystine Crystals Tyrosine Crystals Other Crystals Urine Bacteria (None Seen) Urine Parasites Bilirubin Casts Epithelial Casts Fatty Casts Hyaline Casts (0-2) /LPF Granular Casts Waxy Casts Broad Casts RBC Casts WBC Casts Other Casts Urine Trichomonas Urine Yeast Urine Opiates Screen (Not Detect) Urine Fentanyl Screen (Not Detect) Ur Barbiturates Screen (Not Detect) Ur Phencyclidine Scrn (Not Detect) Ur Amphetamines Screen (Not Detect) U Benzodiazepines Scrn (Not Detect) Urine Cocaine Screen (Not Detect) U Marijuana (THC) Screen (Not Detect) Ethyl Alcohol mg/dL COVID-19 (GARCIA) (Negative) COVID-19 Clin Com 07/02/23 07/02/23 07/02/23 Range/Units 17:39 17:39 17:39 WBC (4.8-10.8) X10*3/uL RBC (4.20-5.50) X10*6/uL Hgb (12.0-16.0) g/dl Hct (37.0-47.0) % MCV (80.0-98.0) fL MCH (27.0-33.0) pg MCHC (31.0-35.0) g/dl RDW (11.0-16.0) % Plt Count (160-400) X10*3/uL MPV (9.4-12.3) fL Immature Gran % (Auto) (0.0-0.4) % Neut % (Auto) (45-73) % Lymph % (Auto) (20-40) % Hubbard % (Auto) (2-11) % Eos % (Auto) (0-4) % Baso % (Auto) (0-2) % Lymph # (Auto) (1.2-4.9) X10*3/uL Hubbard # (Auto) (0.1-1.2) X10*3/uL Eos # (Auto) (0.0-0.4) X10*3/uL Baso # (Auto) (0.0-0.2) X10*3/uL Abs Immat Gran (auto) (0.00-0.03) X10*3/uL Absolute Neuts (auto) (2.0-8.3) x10*3/uL Absolute Nucleated RBC (0.0-0.012) X10*3/uL Nucleated RBC % (auto) (0.0-0.2) /100WBC Sodium (135-145) mmol/L Potassium (3.3-5.1) mmol/L Chloride (96-108) mmol/L Carbon Dioxide (22-29) mmol/L Anion Gap (12-20) BUN (9-16) mg/dL Creatinine (0.5-1.4) mg/dL Estim Creat Clear Calc Estimated GFR Random Glucose (60-115) mg/dL Calcium (8.4-10.2) mg/dL Urine Color Urine Appearance Urine pH (5.0-9.0) Ur Specific [place] Cancelled (1.005-1.025) Urine Protein Negative Cancelled (Neg-Trace) mg/dL Urine Glucose (UA) Negative Cancelled (Negative) mg/dL Urine Ketones Negative (Negative) mg/dL Urine Blood (Negative) Urine Nitrite (Negative) Ur Leukocyte Esterase (Negative) Urine RBC (0-2) /HPF Urine WBC (0-5) /HPF Urine WBC Clumps Ur Squamous Epith Cells (0-2) /HPF Ur Transition Epith Cell Ur Renal Epithelial Cell Calcium Oxalate Crystal Leucine Crystals Cystine Crystals Tyrosine Crystals Other Crystals Urine Bacteria (None Seen) Urine Parasites Bilirubin Casts Epithelial Casts Fatty Casts Hyaline Casts (0-2) /LPF Granular Casts Waxy Casts Broad Casts RBC Casts WBC Casts Other Casts Urine Trichomonas Urine Yeast Urine Opiates Screen (Not Detect) Urine Fentanyl Screen (Not Detect) Ur Barbiturates Screen (Not Detect) Ur Phencyclidine Scrn (Not Detect) Ur Amphetamines Screen (Not Detect) U Benzodiazepines Scrn (Not Detect) Urine Cocaine Screen (Not Detect) U Marijuana (THC) Screen (Not Detect) Ethyl Alcohol mg/dL COVID-19 (GARCIA) (Negative) COVID-19 Clin Com 07/02/23 07/02/23 07/02/23 Range/Units 17:39 17:39 17:39 WBC (4.8-10.8) X10*3/uL RBC (4.20-5.50) X10*6/uL Hgb (12.0-16.0) g/dl Hct (37.0-47.0) % MCV (80.0-98.0) fL MCH (27.0-33.0) pg MCHC (31.0-35.0) g/dl RDW (11.0-16.0) % Plt Count (160-400) X10*3/uL MPV (9.4-12.3) fL Immature Gran % (Auto) (0.0-0.4) % Neut % (Auto) (45-73) % Lymph % (Auto) (20-40) % Hubbard % (Auto) (2-11) % Eos % (Auto) (0-4) % Baso % (Auto) (0-2) % Lymph # (Auto) (1.2-4.9) X10*3/uL Hubbard # (Auto) (0.1-1.2) X10*3/uL Eos # (Auto) (0.0-0.4) X10*3/uL Baso # (Auto) (0.0-0.2) X10*3/uL Abs Immat Gran (auto) (0.00-0.03) X10*3/uL Absolute Neuts (auto) (2.0-8.3) x10*3/uL Absolute Nucleated RBC (0.0-0.012) X10*3/uL Nucleated RBC % (auto) (0.0-0.2) /100WBC Sodium (135-145) mmol/L Potassium (3.3-5.1) mmol/L Chloride (96-108) mmol/L Carbon Dioxide (22-29) mmol/L Anion Gap (12-20) BUN (9-16) mg/dL Creatinine (0.5-1.4) mg/dL Estim Creat Clear Calc Estimated GFR Random Glucose (60-115) mg/dL Calcium (8.4-10.2) mg/dL Urine Color Urine Appearance Urine pH (5.0-9.0) Ur Specific [place] (1.005-1.025) Urine Protein (Neg-Trace) mg/dL Urine Glucose (UA) (Negative) mg/dL Urine Ketones Cancelled (Negative) mg/dL Urine Blood Negative Cancelled (Negative) Urine Nitrite Negative Cancelled (Negative) Ur Leukocyte Esterase Moderate (2+) H (Negative) Urine RBC (0-2) /HPF Urine WBC (0-5) /HPF Urine WBC Clumps Ur Squamous Epith Cells (0-2) /HPF Ur Transition Epith Cell Ur Renal Epithelial Cell Calcium Oxalate Crystal Leucine Crystals Cystine Crystals Tyrosine Crystals Other Crystals Urine Bacteria (None Seen) Urine Parasites Bilirubin Casts Epithelial Casts Fatty Casts Hyaline Casts (0-2) /LPF Granular Casts Waxy Casts Broad Casts RBC Casts WBC Casts Other Casts Urine Trichomonas Urine Yeast Urine Opiates Screen (Not Detect) Urine Fentanyl Screen (Not Detect) Ur Barbiturates Screen (Not Detect) Ur Phencyclidine Scrn (Not Detect) Ur Amphetamines Screen (Not Detect) U Benzodiazepines Scrn (Not Detect) Urine Cocaine Screen (Not Detect) U Marijuana (THC) Screen (Not Detect) Ethyl Alcohol mg/dL COVID-19 (GARCIA) (Negative) COVID-19 Clin Com 07/02/23 07/02/23 07/02/23 Range/Units 17:39 17:39 17:39 WBC (4.8-10.8) X10*3/uL RBC (4.20-5.50) X10*6/uL Hgb (12.0-16.0) g/dl Hct (37.0-47.0) % MCV (80.0-98.0) fL MCH (27.0-33.0) pg MCHC (31.0-35.0) g/dl RDW (11.0-16.0) % Plt Count (160-400) X10*3/uL MPV (9.4-12.3) fL Immature Gran % (Auto) (0.0-0.4) % Neut % (Auto) (45-73) % Lymph % (Auto) (20-40) % Hubbard % (Auto) (2-11) % Eos % (Auto) (0-4) % Baso % (Auto) (0-2) % Lymph # (Auto) (1.2-4.9) X10*3/uL Hubbard # (Auto) (0.1-1.2) X10*3/uL Eos # (Auto) (0.0-0.4) X10*3/uL Baso # (Auto) (0.0-0.2) X10*3/uL Abs Immat Gran (auto) (0.00-0.03) X10*3/uL Absolute Neuts (auto) (2.0-8.3) x10*3/uL Absolute Nucleated RBC (0.0-0.012) X10*3/uL Nucleated RBC % (auto) (0.0-0.2) /100WBC Sodium (135-145) mmol/L Potassium (3.3-5.1) mmol/L Chloride (96-108) mmol/L Carbon Dioxide (22-29) mmol/L Anion Gap (12-20) BUN (9-16) mg/dL Creatinine (0.5-1.4) mg/dL Estim Creat Clear Calc Estimated GFR Random Glucose (60-115) mg/dL Calcium (8.4-10.2) mg/dL Urine Color Urine Appearance Urine pH (5.0-9.0) Ur Specific [place] (1.005-1.025) Urine Protein (Neg-Trace) mg/dL Urine Glucose (UA) (Negative) mg/dL Urine Ketones (Negative) mg/dL Urine Blood (Negative) Urine Nitrite (Negative) Ur Leukocyte Esterase Cancelled (Negative) Urine RBC 0-2 Cancelled (0-2) /HPF Urine WBC 21-50 H Cancelled (0-5) /HPF Urine WBC Clumps Cancelled Ur Squamous Epith Cells 6-10 (0-2) /HPF Ur Transition Epith Cell Ur Renal Epithelial Cell Calcium Oxalate Crystal Leucine Crystals Cystine Crystals Tyrosine Crystals Other Crystals Urine Bacteria (None Seen) Urine Parasites Bilirubin Casts Epithelial Casts Fatty Casts Hyaline Casts (0-2) /LPF Granular Casts Waxy Casts Broad Casts RBC Casts WBC Casts Other Casts Urine Trichomonas Urine Yeast Urine Opiates Screen (Not Detect) Urine Fentanyl Screen (Not Detect) Ur Barbiturates Screen (Not Detect) Ur Phencyclidine Scrn (Not Detect) Ur Amphetamines Screen (Not Detect) U Benzodiazepines Scrn (Not Detect) Urine Cocaine Screen (Not Detect) U Marijuana (THC) Screen (Not Detect) Ethyl Alcohol mg/dL COVID-19 (GARCIA) (Negative) COVID-19 Clin Com 07/02/23 07/02/23 07/02/23 Range/Units 17:39 17:39 17:39 WBC (4.8-10.8) X10*3/uL RBC (4.20-5.50) X10*6/uL Hgb (12.0-16.0) g/dl Hct (37.0-47.0) % MCV (80.0-98.0) fL MCH (27.0-33.0) pg MCHC (31.0-35.0) g/dl RDW (11.0-16.0) % Plt Count (160-400) X10*3/uL MPV (9.4-12.3) fL Immature Gran % (Auto) (0.0-0.4) % Neut % (Auto) (45-73) % Lymph % (Auto) (20-40) % Hubbard % (Auto) (2-11) % Eos % (Auto) (0-4) % Baso % (Auto) (0-2) % Lymph # (Auto) (1.2-4.9) X10*3/uL Hubbard # (Auto) (0.1-1.2) X10*3/uL Eos # (Auto) (0.0-0.4) X10*3/uL Baso # (Auto) (0.0-0.2) X10*3/uL Abs Immat Gran (auto) (0.00-0.03) X10*3/uL Absolute Neuts (auto) (2.0-8.3) x10*3/uL Absolute Nucleated RBC (0.0-0.012) X10*3/uL Nucleated RBC % (auto) (0.0-0.2) /100WBC Sodium (135-145) mmol/L Potassium (3.3-5.1) mmol/L Chloride (96-108) mmol/L Carbon Dioxide (22-29) mmol/L Anion Gap (12-20) BUN (9-16) mg/dL Creatinine (0.5-1.4) mg/dL Estim Creat Clear Calc Estimated GFR Random Glucose (60-115) mg/dL Calcium (8.4-10.2) mg/dL Urine Color Urine Appearance Urine pH (5.0-9.0) Ur Specific [place] (1.005-1.025) Urine Protein (Neg-Trace) mg/dL Urine Glucose (UA) (Negative) mg/dL Urine Ketones (Negative) mg/dL Urine Blood (Negative) Urine Nitrite (Negative) Ur Leukocyte Esterase (Negative) Urine RBC (0-2) /HPF Urine WBC (0-5) /HPF Urine WBC Clumps Ur Squamous Epith Cells Cancelled (0-2) /HPF Ur Transition Epith Cell Cancelled Ur Renal Epithelial Cell Cancelled Calcium Oxalate Crystal Cancelled Leucine Crystals Cancelled Cystine Crystals Cancelled Tyrosine Crystals Cancelled Other Crystals Cancelled Urine Bacteria None Seen Cancelled (None Seen) Urine Parasites Cancelled Bilirubin Casts Cancelled Epithelial Casts Cancelled Fatty Casts Cancelled Hyaline Casts 0-2 Cancelled (0-2) /LPF Granular Casts Cancelled Waxy Casts Cancelled Broad Casts Cancelled RBC Casts Cancelled WBC Casts Cancelled Other Casts Cancelled Urine Trichomonas Cancelled Urine Yeast Cancelled Urine Opiates Screen (Not Detect) Urine Fentanyl Screen (Not Detect) Ur Barbiturates Screen (Not Detect) Ur Phencyclidine Scrn (Not Detect) Ur Amphetamines Screen (Not Detect) U Benzodiazepines Scrn (Not Detect) Urine Cocaine Screen (Not Detect) U Marijuana (THC) Screen (Not Detect) Ethyl Alcohol mg/dL COVID-19 (GARCIA) (Negative) COVID-19 Clin Com Discharge Plan Discharge Clinical Impression: Alcohol intoxication Prescriptions: No Action acetaminophen 325 mg tablet 325 mg PO Q6-8H PRN (Reason: Pain) ibuprofen 600 mg tablet 600 mg PO TID gabapentin 600 mg tablet 600 mg PO BEDTIME venlafaxine 37.5 mg capsule,extended release 24hr 75 mg PO DAILY hydroxyzine HCl 50 mg tablet 50 mg PO Q6H PRN (Reason: anxiety) quetiapine 50 mg tablet 150 mg PO BEDTIME PRN (Reason: Insomnia) melatonin 5 mg tablet 5 mg PO BEDTIME PRN (Reason: Insomnia)
[2023-07-02 13:07] VITALS: BP 136/75; BP 142/82; PULSE 83; PULSE 84; RESP 16; TEMP 36.4; O2SAT 94; O2SAT 97; BMI 30.6
--- NOTE | 2023-07-02 13:11 | PC.NURSE ---
PT SEEN BY PROVIDER PT AWARE OF PLAN OF CARE.
[2023-07-02 13:53] LABS: MANUAL DIFF FLAG NO
[2023-07-02 13:55] LABS: Basophils Absolute Auto 0.1 X10*3/uL (0.0-0.2); Basophils Percent Auto 0.6 % (0-2); Eosinophils Absolute Auto 0.1 X10*3/uL (0.0-0.4); Eosinophils Percent Auto 1.7 % (0-4); Hematocrit 40.6 % (37.0-47.0); Hemoglobin 13.3 g/dl (12.0-16.0); Imm Gran Abs Auto 0.02 X10*3/uL (0.00-0.03); Imm Gran Pct Auto 0.2 % (0.0-0.4); Lymphocytes Absolute Auto 2.6 X10*3/uL (1.2-4.9); Lymphocytes Percent Auto 31.1 % (20-40); Mean Corpuscular HGB Conc 32.8 g/dl (31.0-35.0); Mean Corpuscular Hemoglobin 30.9 pg (27.0-33.0); Mean Corpuscular Volume 94.4 fL (80.0-98.0); Mean Platelet Volume 9.2 fL (9.4-12.3); Monocytes Absolute Auto 0.6 X10*3/uL (0.1-1.2); Monocytes Percent Auto 6.6 % (2-11); Neutrophils Percent Auto 59.8 % (45-73); Platelet Count 332 X10*3/uL (160-400); Red Cell Distribution Width 13.1 % (11.0-16.0); White Blood Count 8.3 X10*3/uL (4.8-10.8)
[2023-07-02 14:11] LABS: Anion Gap 12 (12-20); Blood Urea Nitrogen 15 mg/dL (9-16); Calcium 9.6 mg/dL (8.4-10.2); Carbon Dioxide 23 mmol/L (22-29); Chloride 111 mmol/L (96-108); Creatinine Clr Calc Pharmacy 79.7; Estimated Glomerular Filt Rate > 60; Ethanol 125 mg/dL; Glucose Random 87 mg/dL (60-115); Potassium 3.7 mmol/L (3.3-5.1); Sodium 142 mmol/L (135-145)
[2023-07-02 15:29] VITALS: BP 127/70; PULSE 84; RESP 15; O2SAT 93
--- NOTE | 2023-07-02 15:43 | PC.NURSE ---
this RN resumed care of pt at this time. pt currently laying in stretcher w/ eyes closed at this time. pt seems to be in no apparent distress. respirations even and unlabored.
--- NOTE | 2023-07-02 17:16 | PC.NURSE ---
Patient resting in room. Agreeable to care. Had cough, covid test ordered. Feels safe while in the hospital. States she wants treatment for alcohol abuse. Pending CARE team.
[2023-07-02 17:20] LABS: Amphetamine Screen Urine Not Detected (Not Detect); Barbiturates, Urine Not Detected (Not Detect); Benzodiazepines Screen Urine POSITIVE (Not Detect); Cannabinoid Screen Urine Not Detected (Not Detect); Cocaine Screen Urine Not Detected (Not Detect); Fentanyl, urine Not Detected (Not Detect); Opiate Screen Urine Not Detected (Not Detect); Phencyclidine Screen Urine Not Detected (Not Detect)
[2023-07-02 17:32] LABS: COVID-19 Test Negative (Negative); IDNOW Serial# BCCEAD1C
[2023-07-02 17:42] LABS: Appearance Urine Clear; Color Urine Yellow; Glucose Urine UA Negative (Negative); Leukocyte Esterase Urine Moderate (2+) (Negative); Nitrite Urine Negative (Negative); PH 5.5 (5.0-9.0); UMIC TRIGGER UACC YES; Urine Blood Negative (Negative); Urine Ketones Negative (Negative); Urine Protein Negative (Neg-Trace)
[2023-07-02 17:47] LABS: Bacteria Urine None Seen (None Seen); Hyaline Casts Urine 0-2 /LPF (0-2); RBC Urine 0-2 /HPF (0-2); UACC Culture Trigger YES; WBC Urine 21-50 /HPF (0-5)
--- NOTE | 2023-07-02 18:08 | MHC.CARE ---
CARE Team collaborates with Recovery Team regarding plan of care for this patient. CARE Team will pursue sect 35 tomorrow morning.
[2023-07-03] MEDS: chlordiazePOXIDE HCl 25 MG CAPSULE PO ×2 (04:12→15:01)
[2023-07-03 05:32] VITALS: BP 130/76; PULSE 98; RESP 16; TEMP 36.3; O2SAT 99
--- NOTE | 2023-07-03 06:28 | PC.NURSE ---
Patient slept through the night, no distress observed/reported, asymptomatic of ETOH withdrawal, Librium 25 mg at 0412 for comfort secondary to history of ETOH withdrawal, labs completed/resulted, med rec completed/pending provider's approval, patient has cast on her left arm, disposition is care and recovery team will coordinate the section 35 today per care team, will continue to monitor.
--- NOTE | 2023-07-03 07:01 | PC.NURSE ---
patient appears to remain asleep at present respirations are even and unlabored patient appears in no distress
[2023-07-03] MEDS: Ibuprofen 400 MG TABLET PO (13:53)
--- NOTE | 2023-07-03 14:33 | MHC.RECOVRN ---
Pt accepted to [facility] pending phone screen.
[2023-07-03 14:53] VITALS: BP 136/69; PULSE 91; RESP 16; TEMP 36.1; O2SAT 97
--- NOTE | 2023-07-03 14:59 | MHC.RECOVRN ---
Pt accepted to [facility] for 9PM admission.
--- NOTE | 2023-07-03 15:18 | PHA.MEDREC ---
Pharmacy Consult ? Medication Reconciliation Pharmacy has reviewed the medication reconciliation completed by nursing.
== END 2023-07-03 19:53 | disposition short-term general hospital (02) ==
PROVIDERS: Emergency Medicine; Emergency Provider Student in an Organized Health Care Education/Training Program
DX: F33.1 Major depressive disorder, recurrent, moderate (principal); F10.129 Alcohol abuse with intoxication, unspecified; Y90.6 Blood alcohol level of 120-199 mg/100 ml; Z11.52 Encounter for screening for COVID-19; Z20.822 Contact with and (suspected) exposure to COVID-19; Z79.899 Other long term (current) drug therapy; Z71.51 Drug abuse counseling and surveillance of drug abuser
CPT/HCPCS: 36415; 80048; 80307; 81001; 85025; 87086; 87635; 99285

== ENCOUNTER 2023-07-22 08:16 | Outpatient (REF) | payer OTHER, SELFPAY ==
--- NOTE | ~2023-07-22 | XR_ITS ---
EXAMINATION: XR WRIST, LEFT CLINICAL INFORMATION: Pain. COMPARISON: Prior radiographs, most recently 06/30/2023. TECHNIQUE: PA, lateral, and oblique views of the left wrist. FINDINGS: There is a healing comminuted transverse fracture of the distal left radius, with callus formation. The fracture pattern shows intra-articular extension. Again, there is mild dorsal displacement and apex volar angulation of the dominant distal radial fracture fragment. Displaced ulnar styloid fracture fragments are noted. No dislocation is seen. The proximal and distal carpal rows are intact. There is generalized soft tissue swelling, without gas or foreign body seen. XR/XR wrist LT min 3V IMPRESSION: There is relatively stable alignment of left Colles' fracture fragments. There is interim increase in callus formation at the distal radial fracture site.
== END 2023-07-22 08:17 | disposition home or self-care (01) ==
LOC: HO.HOSX 08:16
PROVIDERS: Visit Provider Physician Assistant
DX: S52.502A Unspecified fracture of the lower end of left radius, initial encounter for closed fracture (principal); R20.0 Anesthesia of skin; F10.10 Alcohol abuse, uncomplicated
CPT/HCPCS: 73110; 99202

== ENCOUNTER 2023-07-22 11:47 | Outpatient (AMB) | payer OTHER, SELFPAY ==
[2023-07-22 12:00] VITALS: BMI 31.2
--- NOTE | 2023-07-22 12:00 | A.OFFVIS_ITS ---
Intake Vital Signs 07/22/23 12:00 Height 5 ft 1 in Weight 165 lb BMI 31.2 Intake Visit Reasons: FC- distal radius fx Intake Note: Katiana 57 yr old female who is right hand dominant presents today for a new patient visit for her left distal radius fracture. States on 2022, she fell down at [facility] while being seen for alcohol intoxication, states she doesn't remember much of that night. Currently state she has pain and was not given pain medication. States she has numbness and throbbing in hand and wrist. Allergies No Known Allergies [No Known Allergies*] Allergy (Verified 07/22/23 12:03) HPI FC- distal radius fx HPI Details Katiana is a 57 year old right hand dominant woman who presents for a broken left wrist. She has a hx of ETOH and was seen in the ED on 06/30/23 while intoxicated. While there she fell and broke her left wrist. She was seen in the ED again on 07/02/23 for ETOH and says she wants to move into rehab and detox. She evidently had multiple appointments here to be seen in the orthopedic clinic for this injury over the last 3 weeks but no showed all of them until today. She presents today with complaints of pain in her wrist, and numbness to the tips of her fingers of her left hand. She says her numbness began after her fall, and has not improved since. Per ED note from 06/30/23, she is homeless and lives on different people's couches. She was drinking multiple beers & multiple nips of alcohol daily. [facility] Medical History (Updated 07/22/23 @ 12:22 by Jas Swenson) Rash ETOH abuse TBI (traumatic brain injury) Mood disorder as late effect of traumatic brain injury Depression Surgical History Hx of cystoscopy Social History (Updated 07/22/23 @ 12:04 by JERO Chew) Household Members: Unknown / Unable to assess Household Members Other:: Reports has been couch surfing. Housing: Apartment Alcohol intake: current Alcohol intake frequency: 3 or more drinks per day Alcohol type: beer and hard liquor Comment: Pt ambulates independently with no apparent limitations. 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 Sexual orientation: Straight/Heterosexual Review of Systems Const All systems reviewed & are unremarkable except as noted in HPI and below Physical Exam Vital Signs: BMI result Body Mass Index 31.2 Const General: cooperative, healthy appearing and no acute distress Orientation/consciousness: patient oriented x3 HEENT Head: Yes normocephalic and Yes atraumatic Eyes EOM: EOMs intact bilaterally Resp Effort & Inspection: normal respiratory effort and able to speak in complete sentences Cardio Jugular venous distension: no JVD Skin General skin exam: turgor normal Rashes: no rashes Neuro General: patient oriented x3 Extrem Other: Evaluation of Left Upper Extremity: The patient is alert, oriented. She was somewhat tearful during this visit wondering what she is going to do with her broken left wrist. Neuro: Dense numbness in the median nerve distribution Normal sensation in the ulnar nerve distribution No thenar or intrinsic wasting Vascular: Cap refill brisk ROM: She has a visible apex dorsal deformity as well as some radial shortening of the left wrist. The fracture itself is only mildly tender at this point. Most of the swelling and ecchymosis has resolved. She had good active flexion and extension at the elbow without pain and no pain proximal forearm squeeze, no tenderness about the elbow. With encouragement she could make a fist and extend all of her digits. Skin: No lacerations or abrasions. General: No Ecchymosis. No Erythema or evidence of infection. Radiographs: 3 views of the left wrist were taken and viewed by me today in clinic. They show a comminuted intraarticular distal radius fracture & ulnar styloid fracture with ~30 degrees apex volar angulation as well as loss of radial inclination, and radial shortening. There is some spreading or displacement of the intra- articular fractures. There is some evidence of early interval healing.. Psych Appearance: grossly normal Affect: normal affect Attitude: cooperative Assessment & Plan Assessment & Plan (1) Fracture of distal end of left radius: Code(s): S52.502A - Unspecified fracture of the lower end of left radius, initial encounter for closed fracture (2) Fracture of ulnar styloid: Code(s): S52.613A - Displaced fracture of unspecified ulna styloid process, initial encounter for closed fracture (3) ETOH abuse: Code(s): F10.10 - Alcohol abuse, uncomplicated (4) Numbness of left hand: Code(s): R20.0 - Anesthesia of skin Plan Assessment & Plan: 1. Left distal radius fracture, comminuted intra-articular With ~30 degrees apex volar angulation, shortening and loss of radial inclination From a fall, DOI: 06/30/23 2. Left ulnar styloid fracture, From a fall, DOI: 06/30/23 3. Left hand numbness In the median nerve distribution, likely carpal tunnel syndrome secondary to her fall With dense numbness since her DOI: 06/30/23 4. ETOH abuse I educated her about this condition Evidently she had been given multiple appointments to be seen in our clinic but no showed them, and this is the 1st day that she is seen. This is a fracture that we would likely have taken for an open reduction internal fixation had was seen at earlier. However, she is now more than 3 weeks post injury and is already showing some evidence of healing. My biggest concern is of the dense numbness in the median nerve distribution at this point. I discussed operative and non-operative treatment options Given her hand numbness, I recommend a carpal tunnel release & possible gentle reduction of the distal radius fx to improve the apex volar angulation, which, if we are able to achieve some improvement, will be held with some percutaneous K wires. I explained that it may already be healed in place and not able to be reduced in the OR, in which case she will be allowed to heal in a cast non- operatively and we may discuss a possible osteotomy in the future if she has difficulties. She was placed in a volar wrist splint to be worn like a cast until her DOS I discussed activity modification, she is to lift nothing heavier than a cellphone with her RUE I discussed her ETOH abuse with her and explained the importance of drinking in moderation while her wrist is healing, to prevent the risk of any falls or accidents which may worsen her wrist The risks and benefits of operative treatment were discussed with the patient and the patient wishes to proceed with surgery. These risks include, but are not limited to risk of damage to blood vessels, nerves, tendons, infection, recurrence, incomplete relief of preoperative symptoms, persistent pain, possible need for further surgery and the risks associated with regional blocks and anesthesia. The plan is to take the patient to the operating room sometime on 07/24/23 for the following procedures: 1. Left Carpal tunnel release, under general 2. Possible left distal radius CRPP, under general All of the preoperative paperwork including the consent was filled out today. All the patient's questions were answered. The patient understands that they will be contacted by our licensed embalmer soon to schedule this procedure She denies Diabetes, blood thinners, asthma, heart, lung, kidney issues She has a hx of ETOH, depression, and is currently homeless while living on different people's couches. . Scribed for Lisa Lima MD by Jas Swenson, medical claims representative, on 07/22/23 at 12:15 PM, EST. Orders: Orders XR wrist LT min 3V Today M25.539 - Pain in unspecified wrist Coding Level of Care Code New Pt Level 4 (16361) Diagnoses Fracture of distal end of left radius S52.502A Fracture of ulnar styloid S52.613A ETOH abuse F10.10 Numbness of left hand R20.0
== END 2023-07-22 12:53 | disposition home or self-care (01) ==
PROVIDERS: Visit Provider Orthopaedic Surgery
DX: G56.02 Carpal tunnel syndrome, left upper limb (principal); S52.502A Unspecified fracture of the lower end of left radius, initial encounter for closed fracture; S52.613A Displaced fracture of unspecified ulna styloid process, initial encounter for closed fracture; R20.0 Anesthesia of skin
CPT/HCPCS: 99204

== ENCOUNTER 2023-07-23 12:15 | Emergency (ER) | payer OTHER, SELFPAY ==
--- NOTE | ~2023-07-23 | CT_ITS ---
EXAMINATION: CT HEAD WITHOUT CONTRAST CLINICAL INFORMATION: Tripped and fell, pain COMPARISON: 01/31/2023. TECHNIQUE: Contiguous axial imaging was performed from the skull base to vertex without intravenous administration of contrast. This CT examination was performed using dose optimization techniques as appropriate, variously including the following: *Automated exposure control *Adjustment of mA and/or kV according to patient size (this includes techniques or standardized protocols for targeted exams where dose is matched to indication/reason for exam; i.e. extremities or head) *Use of iterative reconstruction technique DLP: 628 mGy-cm FINDINGS: No new hemorrhage or mass effect seen. Hinton/white matter differentiation is maintained. No new extra-axial collections. Encephalomalacic change with gliosis associated with the lateral temporal lobes again observed, not appearing significantly changed. The cisterns are unremarkable. The ventricles appear stable. The mastoids are well aerated. Skull base unremarkable. No calvarial disruption seen. CT/CT head/brain wo IV con IMPRESSION: No evidence for acute process. Encephalomalacic changes of the lateral temporal lobes appearing stable.
--- NOTE | ~2023-07-23 | CT_ITS ---
EXAMINATION: CT CERVICAL SPINE WITHOUT CONTRAST CLINICAL INFORMATION: Tripped and fell with pain COMPARISON: 02/10/2023. TECHNIQUE: Axial sections performed and bone and soft tissue windows without IV contrast enhancement. Sagittal and coronal reconstructions performed. This CT examination was performed using dose optimization techniques as appropriate, variously including the following: *Automated exposure control *Adjustment of mA and/or kV according to patient size (this includes techniques or standardized protocols for targeted exams where dose is matched to indication/reason for exam; i.e. extremities or head) *Use of iterative reconstruction technique DLP: 391 mGy-cm FINDINGS: The odontoid and the condyles are unremarkable. No acute cervical compression fracture. Slight anterolisthesis C4-C5 and C3-C4 again observed. Facet arthrosis seen. Spondylitic change, most pronounced C5-C7. The lung apices appear unremarkable. Epiglottis and vocal cords within normal limits. No suspiciously enlarged cervical chain adenopathy. CT/CT cervical spine wo IV con IMPRESSION: No acute fractures seen. Slight anterolisthesis C3-C4 and C4-C5. Degenerative changes as noted above. Fleischner guidelines were followed.
--- NOTE | 2023-07-23 12:28 | ED.GENADULT ---
HPI - General Adult General Chief complaint: Psychiatric Symptoms Stated complaint: SI/HAD ENOUGH OF LIFE,?ETOH USE,TRIP/NECK PAIN,+CC Time Seen by Provider: 07/23/23 12:28 Source: patient and EMS Mode of arrival: EMS Limitations: no limitations History of Present Illness HPI narrative: Patient is a 57 year old assigned female at with a history of alcohol abuse presenting to the emergency department today with suicidal ideation and neck pain after a trip and fall. Patient states that she tripped and fell after drinking a lot of alcohol and now she no longer wants to live. Patient denies any dizziness, lightheadedness, abdominal pain, nausea, vomiting, fever, chills, blurry vision, double vision, loss of vision, chest pain, difficulty breathing, shortness of breath, back pain, night sweats, pain with urination, increased urinary frequency, increased urinary urgency, blood in her urine or stool, syncope or a near syncopal episode, bowel incontinence, bladder incontinence, bowel retention, bladder retention, or any other complaints at this time. Onset (ago): hour(s) Location: neck Severity: mild Severity scale (1-10): 3 Quality: aching and dull Pain Consistency: constant Relieving factors: none Exacerbating factors: none Associated symptoms: denies other symptoms Treatments prior to arrival: none Related Data Home Medications Medication Instructions Recorded Confirmed gabapentin 600 mg tablet 600 mg PO BEDTIME 06/01/23 07/02/23 hydroxyzine HCl 50 mg tablet 50 mg PO Q6H PRN anxiety 06/01/23 07/02/23 melatonin 5 mg tablet 5 mg PO BEDTIME PRN Insomnia 06/01/23 07/02/23 quetiapine 50 mg tablet 150 mg PO BEDTIME PRN Insomnia 06/01/23 07/02/23 venlafaxine 37.5 mg 75 mg PO DAILY 06/01/23 07/02/23 capsule,extended release 24 hr acetaminophen 325 mg tablet 325 mg PO Q6-8H PRN Pain 07/01/23 07/02/23 ibuprofen 600 mg tablet 600 mg PO TID 07/01/23 07/02/23 Allergies Allergy/AdvReac Type Severity Reaction Status Date / Time No Known Allergies Allergy Verified 07/22/23 12:03 [No Known Allergies*] Review of Systems Constitutional: Constitutional: Reports no additional constitutional complaints, Denies chills, Denies fever(s) and Denies night sweats Eyes: Eyes: Reports no additional eye complaints, Denies blurry vision, Denies change in vision, Denies diplopia, Denies eye discharge, Denies loss of vision and Denies eye pain ENT: Denies dizziness and Reports neck pain Cardiovascular: Cardiovascular: Reports no additional cardiovascular complaints, Denies chest pain, Denies lightheadedness, Denies Loss of Consciousness and Denies dyspnea Respiratory: Respiratory: Reports no additional respiratory complaints and Denies dyspnea Gastrointestinal: Gastrointestinal: Reports no additional gastrointestinal complaints, Denies abdominal pain, Denies melena, Denies hematochezia, Denies change in bowel habits and Denies change in stool character Genitourinary: Genitourinary: Denies hematuria, Denies urinary frequency, Denies dysuria, Denies urinary incontinence, Denies urinary hesitancy and Denies urinary urgency Musculoskeletal: Musculoskeletal: Reports no additional musculoskeletal complaints, Reports neck pain, Denies numbness and Denies tingling Neurologic: Denies dizziness, Denies loss of vision, Denies numbness and Denies tingling Psychiatric: Psychiatric: Reports no additional psychiatric complaints Endocrine: Endocrine: Reports no additional endocrine complaints Hematologic/Lymphatic: Hematologic/Lymphatic: Reports no additional hematologic/lymphatic complaints Allergic/Immunologic: Allergic/Immunologic: Reports no additional allergic/immunologic complaints PMFSH Past Medical History Attestation statement: The following information was validated with the patient. Source: old records reviewed and nursing notes reviewed Medical History Numbness of left hand Bacteremia Hydroureteronephrosis Rash ETOH abuse TBI (traumatic brain injury) Mood disorder as late effect of traumatic brain injury Depression Surgical History Hx of cystoscopy Social History Social History Household Members: Unknown / Unable to assess Household Members Other:: Reports has been [employer] surfing. Housing: Apartment Alcohol intake: current Alcohol intake frequency: 3 or more drinks per day Alcohol type: beer and hard liquor Comment: Pt ambulates independently with no apparent limitations. 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 Sexual orientation: Straight/Heterosexual Physical Exam ED Vital Signs: Vital Signs - 24 hr 07/23/23 13:28 07/23/23 15:07 Temperature 98.1 F Pulse Rate 72 66 Respiratory Rate 18 15 Blood Pressure 105/57 L 96/51 L Pulse Oximetry 95 100 Oxygen Delivery Method Nasal Cannula BMI result Body Mass Index 25.0 Const General: cooperative, no acute distress, alert and awake Nutritional Appearance: well nourished Orientation/consciousness: patient oriented x3 Limitations: no limitations HENMT Head: Yes normal to inspection and Yes atraumatic Ears: hearing grossly normal bilaterally and external ears normal General nose exam: Normal external nose present, no nasal discharge noted and no epistaxis Face and sinus: Yes normal facial exam, No abrasion and No laceration Mouth: Normal oral and palatal mucosa present, no drooling and no muffled voice Eyes General: appearance normal, both eyes and all related structures Periorbital: periorbital findings normal Eyelids: Yes eyelids normal Conjunctivae: conjunctivae normal Pupils: Equal, round and reactive pupils present EOM: EOMs intact bilaterally Neck Neck: Yes normal visual inspection, Yes full ROM and Yes no lymphadenopathy Chest Chest palpation & inspection: normal inspection of the chest Resp Effort & Inspection: normal respiratory effort and able to speak in complete sentences GI Inspection: Yes normal to inspection Neuro General: patient oriented x3 and moves all extremities Cranial nerves: Yes Equal, round and reactive pupils present Cognition (Neuro): normal cognition Motor exam (neuro): 5/5 motor strength present throughout Sensory Exam: Normal double simultaneous stimulation for sensation Coordination: [id number] test normal Extrem Other: patient has a splint on the left wrist General: Yes full ROM and Yes capillary refill normal Psych Appearance: grossly normal Mental Status: mental status grossly normal Affect: normal affect Attitude: cooperative Thought process: Normal thought process present Thought content: Normal thought content present Insight: Good insight present (Psych) Medical Decision Making Medical Decision Making MDM Narrative: Patient is a 57 year old assigned female at with a history of alcohol abuse presenting to the emergency department today with suicidal ideation and neck pain. Patient's physical exam was as noted in the physical exam portion of this note. Patient's blood work was remarkable for an elevated ethanol of 305 but is otherwise unremarkable. Patient's urine showed no acute process. Patient's head and c-spine CTs showed no acute process. I explained my physical exam findings as well as all test results to the patient. I answered all questions asked by the patient. Patient is currently awaiting CARE team evaluation. Patient's disposition will be determined after the CARE team eval. Differential Diagnosis Differential Diagnoses: The differential diagnosis associated with the presentation includes ETOH Alcohol abuse Slip and fall Neck pain Suicidal ideation Admission/Observation Consideration of admission/observation: Escalation of care including admission/observation considered Patient disposition will be determined after CARE team evaluation. Lab Data [facility] Lab Attestation statement: I reviewed the patient's lab results. My interpretation of these results are in the MDM Rationale portion of this note. 07/23/23 13:58 07/23/23 13:58 Labs: Lab Results 07/23/23 07/23/23 07/23/23 Range/Units 13:58 13:59 14:01 WBC 7.3 (4.8-10.8) X10*3/uL RBC 4.16 L (4.20-5.50) X10*6/uL Hgb 12.9 (12.0-16.0) g/dl Hct 39.3 (37.0-47.0) % MCV 94.5 (80.0-98.0) fL MCH 31.0 (27.0-33.0) pg MCHC 32.8 (31.0-35.0) g/dl RDW 13.8 (11.0-16.0) % Plt Count 446 H D (160-400) X10*3/uL MPV 9.0 L (9.4-12.3) fL Immature Gran % (Auto) 0.1 (0.0-0.4) % Neut % (Auto) 35.1 L (45-73) % Lymph % (Auto) 51.2 H (20-40) % Mcclain % (Auto) 9.5 (2-11) % Eos % (Auto) 3.0 (0-4) % Baso % (Auto) 1.1 (0-2) % Lymph # (Auto) 3.7 (1.2-4.9) X10*3/uL Mcclain # (Auto) 0.7 (0.1-1.2) X10*3/uL Eos # (Auto) 0.2 (0.0-0.4) X10*3/uL Baso # (Auto) 0.1 (0.0-0.2) X10*3/uL Abs Immat Gran (auto) 0.01 (0.00-0.03) X10*3/uL Absolute Neuts (auto) 2.6 (2.0-8.3) x10*3/uL Absolute Nucleated RBC 0.000 (0.0-0.012) X10*3/uL Nucleated RBC % (auto) 0.0 (0.0-0.2) /100WBC Sodium 146 H (135-145) mmol/L Potassium 3.9 (3.3-5.1) mmol/L Chloride 112 H (96-108) mmol/L Carbon Dioxide 25 (22-29) mmol/L Anion Gap 13 (12-20) BUN 13 (9-16) mg/dL Creatinine 0.70 (0.5-1.4) mg/dL Estim Creat Clear Calc 77.9 Estimated GFR > 60 Random Glucose 93 (60-115) mg/dL Calcium 9.3 (8.4-10.2) mg/dL Total Bilirubin 0.2 (0.0-1.0) mg/dL AST 18 (5-31) U/L ALT 11 (0-31) U/L Alkaline Phosphatase 76 (39-117) U/L Total Protein 7.7 (6.5-8.0) g/dL Albumin 4.1 (3.5-5.0) g/dL Urine Color Yellow Urine Appearance Clear Urine pH 5.5 (5.0-9.0) Ur Specific Wilson <= 1.005 (1.005-1.025) Urine Protein Negative (Neg-Trace) mg/dL Urine Glucose (UA) Negative (Negative) mg/dL Urine Ketones Negative (Negative) mg/dL Urine Blood Negative (Negative) Urine Nitrite Negative (Negative) Ur Leukocyte Esterase Negative (Negative) Urine Test NEGATIVE (NEGATIVE) Salicylates < 5.0 L (15-30) mg/dL Urine Opiates Screen Not Detected (Not Detect) Urine Fentanyl Screen Not Detected (Not Detect) Acetaminophen < 3 (<30) mcg/mL Ur Barbiturates Screen Not Detected (Not Detect) Ur Phencyclidine Scrn Not Detected (Not Detect) Ur Amphetamines Screen Not Detected (Not Detect) U Benzodiazepines Scrn POSITIVE H (Not Detect) Urine Cocaine Screen Not Detected (Not Detect) U Marijuana (THC) Screen Not Detected (Not Detect) Ethyl Alcohol 305 H* mg/dL COVID-19 (GARCIA) Negative (Negative) COVID-19 Clin Com See Note Independent Interpretation I performed an independent interpretation of an: CT Scan Interpretation: My interpretation is in agreement with the radiologist's impression of these imaging studies. EXAMINATION: CT HEAD WITHOUT CONTRAST CLINICAL INFORMATION: Yesica and chary, pain COMPARISON: 01/31/2023. TECHNIQUE: Contiguous axial imaging was performed from the skull base to vertex without intravenous administration of contrast. This CT examination was performed using dose optimization techniques as appropriate, variously including the following: *Automated exposure control *Adjustment of mA and/or kV according to patient size (this includes techniques or standardized protocols for targeted exams where dose is matched to indication/reason for exam; i.e. extremities or head) *Use of iterative reconstruction technique DLP: 628 mGy-cm FINDINGS: No new hemorrhage or mass effect seen. Hinton/white matter differentiation is maintained. No new extra-axial collections. Encephalomalacic change with gliosis associated with the lateral temporal lobes again observed, not appearing significantly changed. The cisterns are unremarkable. The ventricles appear stable. The mastoids are well aerated. Skull base unremarkable. No calvarial disruption seen. CT/CT head/brain wo IV con IMPRESSION: No evidence for acute process. Encephalomalacic changes of the lateral temporal lobes appearing stable. Dictated By: Matthieu Inman Signed By: Electronically signed by Matthieu Inman 07/23/23 1527 EXAMINATION: CT CERVICAL SPINE WITHOUT CONTRAST CLINICAL INFORMATION: Tripped and fell with pain COMPARISON: 02/10/2023. TECHNIQUE: Axial sections performed and bone and soft tissue windows without IV contrast enhancement. Sagittal and coronal reconstructions performed. This CT examination was performed using dose optimization techniques as appropriate, variously including the following: *Automated exposure control *Adjustment of mA and/or kV according to patient size (this includes techniques or standardized protocols for targeted exams where dose is matched to indication/reason for exam; i.e. extremities or head) *Use of iterative reconstruction technique DLP: 391 mGy-cm FINDINGS: The odontoid and the condyles are unremarkable. No acute cervical compression fracture. Slight anterolisthesis C4-C5 and C3-C4 again observed. Facet arthrosis seen. Spondylitic change, most pronounced C5-C7. The lung apices appear unremarkable. Epiglottis and vocal cords within normal limits. No suspiciously enlarged cervical chain adenopathy. CT/CT cervical spine wo IV con IMPRESSION: No acute fractures seen. Slight anterolisthesis C3-C4 and C4-C5. Degenerative changes as noted above. Fleischner guidelines were followed. Dictated By: Matthieu Inman Signed By: Electronically signed by Matthieu Inman 07/23/23 1533 Radiology Impression Discussion of test interpretation with radiology: I have reviewed the radiologist's reading. Independent Historian Clinical information obtained from an independent historian. History obtained from or confirmed by: EMS (EMS provided additional history and confirmed the history provided by the patient.) External Record Review External record reviewed: Inpatient record, Office record and Outpatient record Social Determinants Patient?s care significantly limited by Social Determinants of Health including: Alcoholism and drug addiction in family (patient suffers from alcohol abuse) Critical Care Time Critical Care Time Critical Care Time: Yes Total Critical Care Time: 35 Attestation: I spent 35 minutes of Critical Care Time with this patient. This does not include time spent on separately reported billable procedures. Discharge Plan Discharge Clinical Impression: ETOH abuse, Suicidal ideation Patient Disposition: Still a Patient Prescriptions: No Action acetaminophen 325 mg tablet 325 mg PO Q6-8H PRN (Reason: Pain) ibuprofen 600 mg tablet 600 mg PO TID gabapentin 600 mg tablet 600 mg PO BEDTIME venlafaxine 37.5 mg capsule,extended release 24hr 75 mg PO DAILY hydroxyzine HCl 50 mg tablet 50 mg PO Q6H PRN (Reason: anxiety) quetiapine 50 mg tablet 150 mg PO BEDTIME PRN (Reason: Insomnia) melatonin 5 mg tablet 5 mg PO BEDTIME PRN (Reason: Insomnia) Interventions: [place]-Suicide Risk Severity Scale Last Done: 07/23/23 12:48
[2023-07-23 12:35] VITALS: BP 125/70; PULSE 84; O2SAT 95; BMI 25.0
--- NOTE | 2023-07-23 13:09 | PC.NURSE ---
Patient changed over into hospital gown, security inventoried personal belongings. Patient at this time denies SI/HI, states she just had too much to drink this morning. Positive [employer]ANT in left hand, splint clean dry and intact.1:1 at bedside for safety
[2023-07-23 13:28] VITALS: BP 105/57; PULSE 72; RESP 18; TEMP 36.7; O2SAT 95
[2023-07-23 14:09] LABS: MANUAL DIFF FLAG NO
[2023-07-23 14:12] LABS: Basophils Absolute Auto 0.1 X10*3/uL (0.0-0.2); Basophils Percent Auto 1.1 % (0-2); Eosinophils Absolute Auto 0.2 X10*3/uL (0.0-0.4); Hematocrit 39.3 % (37.0-47.0); Hemoglobin 12.9 g/dl (12.0-16.0); Imm Gran Abs Auto 0.01 X10*3/uL (0.00-0.03); Imm Gran Pct Auto 0.1 % (0.0-0.4); Lymphocytes Absolute Auto 3.7 X10*3/uL (1.2-4.9); Lymphocytes Percent Auto 51.2 % (20-40); Mean Corpuscular HGB Conc 32.8 g/dl (31.0-35.0); Mean Corpuscular Volume 94.5 fL (80.0-98.0); Monocytes Absolute Auto 0.7 X10*3/uL (0.1-1.2); Monocytes Percent Auto 9.5 % (2-11); Neutrophils Absolute Auto 2.6 x10*3/uL (2.0-8.3); Neutrophils Percent Auto 35.1 % (45-73); Platelet Count 446 X10*3/uL (160-400); Red Blood Count 4.16 X10*6/uL (4.20-5.50); Red Cell Distribution Width 13.8 % (11.0-16.0); White Blood Count 7.3 X10*3/uL (4.8-10.8)
[2023-07-23 14:15] LABS: Appearance Urine Clear; Color Urine Yellow; Glucose Urine UA Negative (Negative); Leukocyte Esterase Urine Negative (Negative); Nitrite Urine Negative (Negative); PH 5.5 (5.0-9.0); Specific Gravity - Urine <= 1.005 (1.005-1.025); Urine Blood Negative (Negative); Urine Ketones Negative (Negative); Urine Protein Negative (Neg-Trace)
[2023-07-23 14:18] LABS: UPreg QC Valid YES; Urine Pregnancy NEGATIVE (NEGATIVE)
[2023-07-23 14:21] LABS: Amphetamine Screen Urine Not Detected (Not Detect); Barbiturates, Urine Not Detected (Not Detect); Benzodiazepines Screen Urine POSITIVE (Not Detect); Cannabinoid Screen Urine Not Detected (Not Detect); Cocaine Screen Urine Not Detected (Not Detect); Fentanyl, urine Not Detected (Not Detect); Opiate Screen Urine Not Detected (Not Detect); Phencyclidine Screen Urine Not Detected (Not Detect)
[2023-07-23 14:25] LABS: COVID-19 Test Negative (Negative); IDNOW Serial# 08D9AD1C
[2023-07-23 14:37] LABS: Alanine Aminotransferase 11 U/L (0-31); Albumin Level 4.1 g/dL (3.5-5.0); Alkaline Phosphatase 76 U/L (39-117); Anion Gap 13 (12-20); Aspartate Amino Transferase 18 U/L (5-31); Bilirubin Total 0.2 mg/dL (0.0-1.0); Blood Urea Nitrogen 13 mg/dL (9-16); Calcium 9.3 mg/dL (8.4-10.2); Carbon Dioxide 25 mmol/L (22-29); Chloride 112 mmol/L (96-108); Creatinine Clr Calc Pharmacy 77.9; Estimated Glomerular Filt Rate > 60; Ethanol 305 mg/dL; Glucose Random 93 mg/dL (60-115); Potassium 3.9 mmol/L (3.3-5.1); Sodium 146 mmol/L (135-145); Total Protein 7.7 g/dL (6.5-8.0)
[2023-07-23 15:06] LABS: Acetaminophen LAB < 3 mcg/mL (<30); Salicylate < 5.0 mg/dL (15-30)
[2023-07-23 15:07] VITALS: BP 96/51; PULSE 66; RESP 15; O2SAT 100
--- NOTE | 2023-07-23 15:08 | PC.NURSE ---
Report given to SHAHZAD POD RN
--- NOTE | 2023-07-23 18:32 | PC.NURSE ---
Patient is alert and able to make needs known. Patient came over from main ED where she presented intoxicated. Changeover completed, belongings secured. Patient is resting with her eyes open in her chair at this time.
[2023-07-23 22:04] VITALS: BP 120/78; PULSE 110; RESP 18; TEMP 36.6; O2SAT 97
[2023-07-23] MEDS: LORazepam 1 MG TABLET 2 MG PO (22:26)
[2023-07-24 05:41] VITALS: BP 139/91; PULSE 126; RESP 18; TEMP 36.6; O2SAT 96
[2023-07-24] MEDS: LORazepam 1 MG TABLET 2 MG PO (05:53)
[2023-07-24 08:12] VITALS: PULSE 117; O2SAT 99
--- NOTE | 2023-07-24 08:22 | PC.NURSE ---
pt reports that she has a consult today with orthopedic surgery to get ?surgery on her L wrist which is in a splint.
--- NOTE | 2023-07-24 09:14 | PC.NURSE ---
pt refused AM meds, reports she will take them when she leaves.
== END 2023-07-24 09:54 | disposition home or self-care (01) ==
PROVIDERS: Physician Assistant Medical; Emergency Provider Emergency Medicine Emergency Medical Services
DX: R45.851 Suicidal ideations (principal); M54.2 Cervicalgia; R51.9 Headache, unspecified; F10.129 Alcohol abuse with intoxication, unspecified; Y90.8 Blood alcohol level of 240 mg/100 ml or more; F13.10 Sedative, hypnotic or anxiolytic abuse, uncomplicated; Z11.52 Encounter for screening for COVID-19; Z20.822 Contact with and (suspected) exposure to COVID-19; Z79.899 Other long term (current) drug therapy
CPT/HCPCS: 70450; 72125; 80053; 80143; 80179; 80307; 81003; 81025; 85025; 87635; 99285; S9485

== ENCOUNTER 2023-09-03 08:42 | Outpatient (REF) | payer OTHER, SELFPAY ==
--- NOTE | ~2023-09-03 | XR_ITS ---
EXAMINATION: XR WRIST, LEFT CLINICAL INFORMATION: Left wrist, 3 views COMPARISON: 07/14/2023, 06/30/2023 TECHNIQUE: PA, lateral, and oblique views of the left wrist. FINDINGS: There is interval healing of comminuted fracture of the distal radius with incomplete healing but extensive callus formation. There is an avulsion of fragments of ulnar styloid. There is ulna plus variance. There is diffuse osteopenia and degenerative cysts in the carpal bones. XR/XR wrist LT min 3V IMPRESSION: Incomplete healing of comminuted fracture of the distal radius and ulnar styloid.
== END 2023-09-03 08:43 | disposition home or self-care (01) ==
LOC: HO.HOSX 08:42
PROVIDERS: Visit Provider Orthopaedic Surgery
DX: S52.502A Unspecified fracture of the lower end of left radius, initial encounter for closed fracture (principal); S52.612A Displaced fracture of left ulna styloid process, initial encounter for closed fracture; M25.532 Pain in left wrist; F10.10 Alcohol abuse, uncomplicated; R20.0 Anesthesia of skin; W19.XXXA Unspecified fall, initial encounter; Y93.9 Activity, unspecified; Y92.9 Unspecified place or not applicable; Y99.9 Unspecified external cause status
CPT/HCPCS: 25600; 73110; 99212

== ENCOUNTER 2023-09-03 13:08 | Outpatient (AMB) | payer OTHER, SELFPAY ==
--- NOTE | 2023-09-03 13:21 | A.OFFVIS_ITS ---
Intake Intake Visit Reasons: OV- distal radius fx Intake Note: Katiana 57 yr old female presents today for her follow up visit for her Fracture of distal end of left radius & ulnar styloid from DOI 07/02/23. States she has has been in a rehab facility. She states that she is doing well, no pain at the moment. Patient states having some discomfort in the base of the left thumb. Allergies No Known Allergies [No Known Allergies*] Allergy (Verified 09/03/23 13:32) HPI OV- distal radius fx HPI Details Katiana is a 57 year old right hand dominant woman who returns to discuss her left distal radius fracture She has a hx of ETOH and was seen in the ED on 06/30/23 while intoxicated. While there she fell and broke her left wrist. She was last seen on 07/22/23, and was scheduled for surgery on 07/24/23 Unfortunately, she was seen in the emergency department the day before, on 07/23/2023 in the emergency department with alcohol intoxication and suicidal ideation. For that reason surgery for 07/24/2023 was canceled. This is the 1st time we are seeing her back in our clinic since that time. The patient reports that she is much better now and she has been working hard to improve her left wrist range of motion. She says her numbness has resolved and her sensation is normal She is now living in a sober house and has been off alcohol for several weeks. She says that her wrist no longer hurts, and she is not interested in surgery, and she sorry that she was intoxicated when she was seen in clinic. Per ED note from 06/30/23, she is homeless and lives on different people's couches. In regards to her drinking, she says she has been working on her recovery and remaining sober, and has been clean since the beginning of July. She says she is in a program now for this. She says she has a more stable living condition now and is not couch-surfing [facility] Medical History Numbness of left hand Bacteremia Hydroureteronephrosis Rash ETOH abuse TBI (traumatic brain injury) Mood disorder as late effect of traumatic brain injury Depression Surgical History Hx of cystoscopy Social History Household Members: Unknown / Unable to assess Household Members Other:: Reports has been couch surfing. Housing: Apartment Alcohol intake: current Alcohol intake frequency: 3 or more drinks per day Alcohol type: beer and hard liquor Comment: Pt ambulates independently with no apparent limitations. 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 The fracture itself is nontender. She no longer has any swelling or ecchymosis She had good active flexion and extension at the elbow without pain and no pain proximal forearm squeeze, no tenderness about the elbow. She can make a tight fist with good strength and actively extend all of her digits. She can actively oppose her thumb to all digits. She has full bilateral wrist pronation Wrist supination:80 degrees right & 60 degrees on the left She has only 5-10 degrees of left wrist flexion She has 60 degrees of left wrist extension She has a left wrist dinner-fork deformity, well-healed No tenderness at the ulnocarpal joint today. Radiographs: 3 views of the left wrist were taken and viewed by me today in clinic. They show a healed comminuted intraarticular distal radius fracture & ulnar styloid fracture with ~25 degrees apex volar angulation as well as loss of radial inclination, and radial shortening. She is significantly ulnar positive because of the apex volar deformity of the radius.. Office Procedures Fracture Care Details: I do not believe we build for fracture care at the last visit, as we worse post take her to surgery. She was unable to go to surgery. Therefore fracture care [id number] Fracture Billing Code: Fracture Billing Code Assessment & Plan Assessment & Plan (1) Fracture of distal end of left radius: Code(s): S52.502A - Unspecified fracture of the lower end of left radius, initial encounter for closed fracture (2) Fracture of ulnar styloid: Code(s): S52.613A - Displaced fracture of unspecified ulna styloid process, initial encounter for closed fracture (3) ETOH abuse: Code(s): F10.10 - Alcohol abuse, uncomplicated (4) Numbness of left hand: Code(s): R20.0 - Anesthesia of skin Plan Assessment & Plan: 1. Left distal radius malunion With ~25 degrees apex volar angulation, shortening and loss of radial inclination From a fall, DOI: 06/30/23 2. Left ulnar styloid fracture, From a fall, DOI: 06/30/23 3. ETOH abuse. I educated her about these condition She was in the middle of an ETOH crisis and was not able to have surgery in a timely manner This distal radius fracture has healed with a deformity as noted above, is not painful for her, and she has worked diligently on improving her ROM She is doing well and is not interested in surgery at this time I educated her about corrective eosteotomy, and she is not a smoker. She is adamant that she is not interested in any kind of corrective surgery at this time. I discussed activity modification, she should continue to work on ROM exercises at home and normalizing her hand function In regards to her drinking, she says she has been working on her recovery and remaining sober, and has been clean since the beginning of July. She says she is in a program now for this 4. Left hand numbness Resolved I gave her my card and she will follow up p.r.n.. Scribed for Lisa Lima MD by Jas Swenson, medical transcriptionist, on 09/03/23 at 2:10 PM, EST. Orders: Orders XR wrist LT min 3V Today M25.532 - Pain in left wrist Coding Level of Care Code Est Pt Level 4 (79068) Diagnoses Fracture of distal end of left radius S52.502A Fracture of ulnar styloid S52.613A ETOH abuse F10.10 Numbness of left hand R20.0 CPT Codes Fracture Care - Fracture Billing Code: Fracture Billing Code ([id number])
== END 2023-09-03 14:13 | disposition home or self-care (01) ==
PROVIDERS: Visit Provider Orthopaedic Surgery
DX: S52.502A Unspecified fracture of the lower end of left radius, initial encounter for closed fracture (principal); S52.613A Displaced fracture of unspecified ulna styloid process, initial encounter for closed fracture; F10.10 Alcohol abuse, uncomplicated; R20.0 Anesthesia of skin
CPT/HCPCS: 25600; 99214

== ENCOUNTER 2023-09-05 16:26 | Emergency (ER) | payer OTHER, SELFPAY ==
[2023-09-05 17:51] VITALS: BP 129/69; PULSE 86; RESP 18; TEMP 36.5; O2SAT 95; BMI 27.8
--- NOTE | 2023-09-05 20:03 | ED_ITS ---
HPI - General Adult General Chief complaint: General Medical Stated complaint: RELAPSED ON ALCOHOL,WANTS EVAL Time Seen by Provider: 09/05/23 16:57 Source: patient Mode of arrival: ambulatory History of Present Illness HPI narrative: 57-year-old female who arrives after leaving a sober house with complaints that everyone there is using . Patient denies any SI or HI and is asking about inpatient detox, we did discuss the possibility of [facility] and she states she has already been there. Related Data Home Medications Medication Instructions Recorded Confirmed gabapentin 600 mg tablet 600 mg PO BEDTIME 06/01/23 07/24/23 hydroxyzine HCl 50 mg tablet 50 mg PO Q6H PRN anxiety 06/01/23 07/24/23 melatonin 5 mg tablet 5 mg PO BEDTIME PRN Insomnia 06/01/23 07/24/23 quetiapine 50 mg tablet 150 mg PO BEDTIME PRN Insomnia 06/01/23 07/24/23 venlafaxine 37.5 mg 75 mg PO DAILY 06/01/23 07/24/23 capsule,extended release 24 hr acetaminophen 325 mg tablet 325 mg PO Q6-8H PRN Pain 07/01/23 07/24/23 ibuprofen 600 mg tablet 600 mg PO TID 07/01/23 07/24/23 apixaban 5 mg (74 tabs) tablets in 5 mg PO DIRECTED 07/24/23 07/24/23 a dose pack (Eliquis DVT-PE Treat 30D Start) Allergies Allergy/AdvReac Type Severity Reaction Status Date / Time No Known Allergies Allergy Verified 09/03/23 13:32 [No Known Allergies*] Review of Systems Review of Systems: Pertinent positives and negatives as stated in HPI [facility] Past Medical History Source: nursing notes reviewed Onset Date is defined in the Problem List Problems that require an onset date and time if occurred within 24 hrs of arrival to the ED Aortic Dissection and Rupture; Neurologic impairment; Cardiopulmonary Arrest; Endotracheal Intubation; Insertion or Replacement of Mechanical Circulatory Assist Device Medical History Numbness of left hand Bacteremia Hydroureteronephrosis Rash ETOH abuse TBI (traumatic brain injury) Mood disorder as late effect of traumatic brain injury Depression Surgical History Hx of cystoscopy Social History Social History Household Members: Unknown / Unable to assess Household Members Other:: Reports has been couch surfing. Housing: Apartment Alcohol intake: current Alcohol intake frequency: 3 or more drinks per day Al cohol type: beer and hard liquor Comment: Pt ambulates independently with no apparent limitations. 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 GENERAL: Well developed, well nourished, in no acute distress. HEAD: Normocephalic/atraumatic EYES: PERRLA, EOMI LUNGS: Normal breath sounds. No adventitious sounds or accessory muscle use. SpO2<95> CARDIOVASCULAR: Regular rate and rhythm without noted murmurs ABDOMEN: Soft, non-tender, non-distended with bowel sounds. MUSCULOSKELETAL: No tenderness, deformities, or effusions noted on gross inspection. EXTREMITIES: No cyanosis, clubbing or edema. SKIN: Inspection of the skin reveals no rashes, NEUROLOGIC: Alert and oriented x 4. Strength and sensation to light touch were grossly intact x 4, patient walking with a stable gait and tolerating oral intake. Medical Decision Making Medical Decision Making MDM Narrative: 57-year-old female with history and clinical presentation consistent with known use of alcohol, left her sober house and on discussion with her explained that she will need to call around and make arrangements for inpatient detox should she decide to pursue that. On discussion of [facility] in some other facilities she appears to not be interested at this time and states that she wants to be discharged. She has no SI/HI and is noted be clinically sober and is otherwise discharged with a list of resources. Differential Diagnosis Differential Diagnoses: The differential diagnosis associated with the presentation includes Please see the discussion above Admission/Observation Consideration of admission/observation: Escalation of care including admission/observation considered Please see the discussion above External Record Review External record reviewed: Outpatient record, Prior outpatient labs and Prior outpatient radiology Critical Care Time Critical Care Time Critical Care Time: Yes Total Critical Care Time: 30 Attestation: I personally attest to this time spent taking care of the patient. Discharge Plan Discharge Clinical Impression: ETOH abuse Patient Disposition: Home, Self-Care Instructions: Abuse of Alcohol (ED) Additional Instructions: 1. Resume all home medications as prescribed. 2. Please follow-up with your primary care doctor as they can also provide you with additional help and resources detox from alcohol. Return to the ER for any worsening symptoms. Prescriptions: No Action acetaminophen 325 mg tablet 325 mg PO Q6-8H PRN (Reason: Pain) ibuprofen 600 mg tablet 600 mg PO TID gabapentin 600 mg tablet 600 mg PO BEDTIME venlafaxine 37.5 mg capsule,extended release 24hr 75 mg PO DAILY hydroxyzine HCl 50 mg tablet 50 mg PO Q6H PRN (Reason: anxiety) quetiapine 50 mg tablet 150 mg PO BEDTIME PRN (Reason: Insomnia) melatonin 5 mg tablet 5 mg PO BEDTIME PRN (Reason: Insomnia) Caesar DVT-PE Treat 30D Start 5 mg (74 tabs) tablets,dose pack 5 mg PO DIRECTED Interventions: ED Discharge Assessment Last Done: 09/05/23 20:07 Discharge Date/Time: 09/05/23 20:08
== END 2023-09-05 20:08 | disposition home or self-care (01) ==
PROVIDERS: Emergency Provider Student in an Organized Health Care Education/Training Program
DX: F10.10 Alcohol abuse, uncomplicated (principal); Z71.41 Alcohol abuse counseling and surveillance of alcoholic
CPT/HCPCS: 99282; 99284

== ENCOUNTER 2023-09-06 20:33 | Emergency (ER) | payer OTHER, SELFPAY ==
--- NOTE | 2023-09-06 20:49 | ED.AMS ---
HPI - Altered Mental Status General Chief Complaint: ETOH/Substance Use Stated Complaint: etoh Time Seen by Provider: 09/06/23 20:47 Source: patient Mode of arrival: EMS Limitations: altered mental status History of Present Illness HPI narrative: 57-year-old female with history of alcohol use disorder seen frequently here in the emergency depart for alcohol intoxication. According to nursing notes, patient was drinking alcohol, it was found unresponsive. Ambulance was called and the patient was uncooperative with EMS. The patient appear to be acutely intoxicated and states that she does not want to be here and did not want any blood work. EMS reported that the patient made a suicidal statements. Related Data Home Medications Medication Instructions Recorded Confirmed gabapentin 600 mg tablet 600 mg PO BEDTIME 06/01/23 07/24/23 hydroxyzine HCl 50 mg tablet 50 mg PO Q6H PRN anxiety 06/01/23 07/24/23 melatonin 5 mg tablet 5 mg PO BEDTIME PRN Insomnia 06/01/23 07/24/23 quetiapine 50 mg tablet 150 mg PO BEDTIME PRN Insomnia 06/01/23 07/24/23 venlafaxine 37.5 mg 75 mg PO DAILY 06/01/23 07/24/23 capsule,extended release 24 hr acetaminophen 325 mg tablet 325 mg PO Q6-8H PRN Pain 07/01/23 07/24/23 ibuprofen 600 mg tablet 600 mg PO TID 07/01/23 07/24/23 apixaban 5 mg (74 tabs) tablets in 5 mg PO DIRECTED 07/24/23 07/24/23 a dose pack (Eliquis DVT-PE Treat 30D Start) Allergies Allergy/AdvReac Type Severity Reaction Status Date / Time No Known Allergies Allergy Verified 09/03/23 13:32 [No Known Allergies*] Review of Systems Review of Systems: Yes Unobtainable due to mental status PMFSH Past Medical History Onset Date is defined in the Problem List Problems that require an onset date and time if occurred within 24 hrs of arrival to the ED Aortic Dissection and Rupture; Neurologic impairment; Cardiopulmonary Arrest; Endotracheal Intubation; Insertion or Replacement of Mechanical Circulatory Assist Device Medical History Numbness of left hand Bacteremia Hydroureteronephrosis Rash ETOH abuse TBI (traumatic brain injury) Mood disorder as late effect of traumatic brain injury Depression Surgical History Hx of cystoscopy Social History Social History Household Members: Unknown / Unable to assess Household Members Other:: Reports has been couch surfing. Housing: Apartment Alcohol intake: current Alcohol intake frequency: 3 or more drinks per day Alcohol type: beer and hard liquor Comment: Pt ambulates independently with no apparent limitations. 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 Sexual orientation: Straight/Heterosexual Physical Exam ED Vital Signs: Vital Signs - 24 hr 09/06/23 21:04 09/07/23 06:34 Temperature 98.2 F 98.3 F Pulse Rate 103 H 101 H Respiratory Rate 18 16 Blood Pressure 141/91 H 120/79 Pulse Oximetry 98 98 Oxygen Delivery Method Room Air Room Air BMI result Body Mass Index 30.9 Vital signs revealed an elevated heart rate of 103 and elevated blood pressure of 141/91 Exam General: Patient is acutely intoxicated, uncooperative Head: Normocephalic, atraumatic EENT: PERRL, Lids normal, sclera normal, conjunctiva normal, nose normal , ears normal, throat without erythema or exudates Neck: Supple, no adenopathy, no trachea midline or C-spine tenderness Lung: breath sounds symmetric, no wheezing, rales or rhonchi Chest: symmetric movement, nontender Heart: regular rate and rhythm, normal S1, S2 no murmurs or rubs Abdomen: soft, non-tender, nondistended, normal bowel sounds Back: no vertebral tenderness, no CVAT Extremities: no deformities, moves all extremities symmetrically Neuro: Intoxicated, moves all extremities symmetrically, cranial nerves appear to be intact Medical Decision Making Medical Decision Making MDM Narrative: 57-year-old female with history of alcohol use disorder seen frequently here in the emergency depart for alcohol intoxication. Patient's appears to be acutely intoxicated on presentation, she was uncooperative initially but then fell asleep. Physical examination was consistent with her alcohol intoxication. 07:21 Patient was kept in the emergency department until she was sober. Patient is currently awake and alert, she denies being suicidal or homicidal. She is requesting discharged home. Differential Diagnosis Differential Diagnoses: The differential diagnosis associated with the presentation includes Differential diagnosis includes was not limited to acute alcohol intoxication, polysubstance use disorder, depression, anxiety, suicidal ideation Chronic Conditions Patient?s care impacted by: Other (Alcohol use disorder) Discharge Plan Discharge Clinical Impression: Alcohol intoxication Patient Disposition: Home, Self-Care Instructions: Alcohol Intoxication (ED) Additional Instructions: Your presentation was consistent with alcohol intoxication. You should consider getting into an alcohol detox program help with your alcohol use disorder. Continue taking medications as prescribed by your providers. Follow-up with your doctor in 2 days. Please return to the emergency department if your symptoms get worse or if you develop any symptoms that are concerning to you. Prescriptions: No Action acetaminophen 325 mg tablet 325 mg PO Q6-8H PRN (Reason: Pain) ibuprofen 600 mg tablet 600 mg PO TID gabapentin 600 mg tablet 600 mg PO BEDTIME venlafaxine 37.5 mg capsule,extended release 24hr 75 mg PO DAILY hydroxyzine HCl 50 mg tablet 50 mg PO Q6H PRN (Reason: anxiety) quetiapine 50 mg tablet 150 mg PO BEDTIME PRN (Reason: Insomnia) melatonin 5 mg tablet 5 mg PO BEDTIME PRN (Reason: Insomnia) Caesar DVT-PE Treat 30D Start 5 mg (74 tabs) tablets,dose pack 5 mg PO DIRECTED
--- NOTE | 2023-09-06 20:49 | PC.NURSE ---
Pt off EMS stretcher to ED22H. She was tearful, heard cursing and yelling. Pt initially noted to be laying on the stretcher then observed to independently stand and attempt to ambulate out of the ED. While RN speaking with EMS pt could be heard saying I want to kill myself . Security called and to bedside; plan is for pt to have full climate change analyst and to have a patient observer at bedside.
[2023-09-06 21:04] VITALS: BP 141/91; PULSE 103; RESP 18; TEMP 36.8; O2SAT 98
--- NOTE | 2023-09-06 21:05 | MHC.EDTECH ---
Patient belongings went to pod closet
[2023-09-06 21:30] VITALS: BMI 30.9
[2023-09-07 05:09] VITALS: PULSE 99
[2023-09-07 06:34] VITALS: BP 120/79; PULSE 101; RESP 16; TEMP 36.8; O2SAT 98
--- NOTE | 2023-09-07 06:43 | PC.NURSE ---
Patient is alert and oriented x3, calm and cooperative. VSS. Patient reports generalized pain 3/10 at present, pain is at tolerable level. Patient requested lilian crow, tolerated well. Patient ambulated to the restroom with a steady gait. CIWA score 2.
--- NOTE | 2023-09-07 07:49 | PC.NURSE ---
pt alert and oriented x3, she denies pain, reports nausea. pt cleared for discharge, discharge instructions reviewed with pt. detox resourced given to pt. belongings retrieved from the POD and returned to pt. pt ambulated to the waiting room to call her son to pick her up. no complaints.
== END 2023-09-07 07:52 | disposition home or self-care (01) ==
PROVIDERS: Emergency Provider Emergency Medicine Emergency Medical Services
DX: F10.120 Alcohol abuse with intoxication, uncomplicated (principal); Y90.9 Presence of alcohol in blood, level not specified
CPT/HCPCS: 99284

== ENCOUNTER 2023-09-07 14:43 | Emergency (ER) | payer OTHER, SELFPAY ==
[2023-09-07 15:49] VITALS: BP 133/73; PULSE 91; RESP 16; TEMP 36.7; O2SAT 95
[2023-09-07 15:52] VITALS: BP 178/100; PULSE 98; O2SAT 95
--- NOTE | 2023-09-07 16:13 | MHC.EDTECH ---
Nerupa helped change pt over
[2023-09-07 16:46] VITALS: BP 125/66; PULSE 91; RESP 18; TEMP 37; O2SAT 98; BMI 30.3
--- NOTE | 2023-09-07 17:49 | ED_ITS ---
HPI - Psych General Chief Complaint: Psychiatric Symptoms Stated Complaint: SI W/PLAN,ETOH USE PER EMS Time Seen by Provider: 09/07/23 17:48 Source: patient Mode of arrival: EMS Limitations: no limitations History of Present Illness HPI Narrative: Patient alcoholic been here frequently for discharge yesterday for alcohol intoxication been depressed has a disagreement with her son was in sober home before requesting to go back to sober home again. Denies any current suicidal ideation but felt suicidal earlier patient had been drinking heavy for last 1 week 5-7 nips a day, no other substance abuse Related Data Home Medications Medication Instructions Recorded Confirmed gabapentin 600 mg tablet 600 mg PO BEDTIME 06/01/23 07/24/23 hydroxyzine HCl 50 mg tablet 50 mg PO Q6H PRN anxiety 06/01/23 07/24/23 melatonin 5 mg tablet 5 mg PO BEDTIME PRN Insomnia 06/01/23 07/24/23 quetiapine 50 mg tablet 150 mg PO BEDTIME PRN Insomnia 06/01/23 07/24/23 venlafaxine 37.5 mg 75 mg PO DAILY 06/01/23 07/24/23 capsule,extended release 24 hr acetaminophen 325 mg tablet 325 mg PO Q6-8H PRN Pain 07/01/23 07/24/23 ibuprofen 600 mg tablet 600 mg PO TID 07/01/23 07/24/23 apixaban 5 mg (74 tabs) tablets in 5 mg PO DIRECTED 07/24/23 07/24/23 a dose pack (Eliquis DVT-PE Treat 30D Start) Allergies Allergy/AdvReac Type Severity Reaction Status Date / Time No Known Allergies Allergy Verified 09/03/23 13:32 [No Known Allergies*] Review of Systems 2 Review of Systems: Yes all other systems are reviewed and are negative PMFSH Past Medical History Onset Date is defined in the Problem List Problems that require an onset date and time if occurred within 24 hrs of arrival to the ED Aortic Dissection and Rupture; Neurologic impairment; Cardiopulmonary Arrest; Endotracheal Intubation; Insertion or Replacement of Mechanical Circulatory Assist Device Medical History Numbness of left hand Bacteremia Hydroureteronephrosis Rash ETOH abuse TBI (traumatic brain injury) Mood disorder as late effect of traumatic brain injury Depression Surgical History Hx of cystoscopy Social History Social History Household Members: Unknown / Unable to assess Household Members Other:: Reports has been couch surfing. Housing: Apartment Alcohol intake: current Alcohol intake frequency: 3 or more drinks per day Alcohol type: beer and hard liquor Comment: Pt ambulates independently with no apparent limitations. 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 Oriented X3. No acute distress. Intoxicated Eyes: PERRLA, No Nystagmus ENT: Pharynx normal. Oral Mucosa dry Neck: Normal inspection. Neck supple. CVS: Normal heart rate and rhythm. Pulses normal. Respiratory: No respiratory distress. Equal air entry bilateral, no wheezing/rales/rhonchi Abdomen: Soft and nontender. Bowel sounds are present, no mass palpable, no CVA tenderness Skin: Skin warm and dry. Normal skin color. Normal skin turgor. Extremities: No lower extremity edema. No calf tenderness psych: Feel depressed denies any SI or HI no hallucination or delusion Neuro: Oriented X 3. No motor deficit. No sensory deficit.No cerebellar signs , cranial nerves II-XII intact Medications Administered Discontinued Medications Generic Name Dose Route Start Last Admin Trade Name Freq PRN Reason Stop Dose Admin Sodium Chloride 1,000 mls @ 999 mls/hr 09/07/23 18:04 09/07/23 20:00 Ns IV 09/07/23 19:04 Infused .Q1H1M ONE Infusion Medical Decision Making Medical Decision Making MDM Narrative: Patient with depression with alcohol use who comes in for detox or dual diagnosis will get care team involved Lab Data MDM Lab Attestation statement: I reviewed the patient's lab results. 09/07/23 18:41 09/07/23 18:41 Labs: Lab Results 09/07/23 Range/Units 18:41 WBC 7.0 (4.8-10.8) X10*3/uL RBC 4.27 (4.20-5.50) X10*6/uL Hgb 13.3 (12.0-16.0) g/dl Hct 39.4 (37.0-47.0) % MCV 92.3 (80.0-98.0) fL MCH 31.1 (27.0-33.0) pg MCHC 33.8 (31.0-35.0) g/dl RDW 14.0 (11.0-16.0) % Plt Count 320 D (160-400) X10*3/uL MPV 9.3 L (9.4-12.3) fL Immature Gran % (Auto) 0.3 (0.0-0.4) % Neut % (Auto) 32.6 L (45-73) % Lymph % (Auto) 58.4 H (20-40) % [place] % (Auto) 5.7 (2-11) % Eos % (Auto) 2.3 (0-4) % Baso % (Auto) 0.7 (0-2) % Lymph # (Auto) 4.1 (1.2-4.9) X10*3/uL [place] # (Auto) 0.4 (0.1-1.2) X10*3/uL Eos # (Auto) 0.2 (0.0-0.4) X10*3/uL Baso # (Auto) 0.1 (0.0-0.2) X10*3/uL Abs Immat Gran (auto) 0.02 (0.00-0.03) X10*3/uL Absolute Neuts (auto) 2.3 (2.0-8.3) x10*3/uL Absolute Nucleated RBC 0.000 (0.0-0.012) X10*3/uL Nucleated RBC % (auto) 0.0 (0.0-0.2) /100WBC Sodium 146 H (135-145) mmol/L Potassium 3.6 (3.3-5.1) mmol/L Chloride 108 (96-108) mmol/L Carbon Dioxide 25 (22-29) mmol/L Anion Gap 17 (12-20) BUN 12 (9-16) mg/dL Creatinine 0.74 (0.5-1.4) mg/dL Estim Creat Clear Calc 74.6 Estimated GFR > 60 Random Glucose 87 (60-115) mg/dL Calcium 9.6 (8.4-10.2) mg/dL Magnesium 1.9 (1.6-2.6) mg/dL Total Bilirubin 0.4 (0.0-1.0) mg/dL AST 23 (5-31) U/L ALT 15 (0-31) U/L Alkaline Phosphatase 68 (39-117) U/L Total Protein 8.2 H (6.5-8.0) g/dL Albumin 4.5 (3.5-5.0) g/dL Ethyl Alcohol 234 mg/dL Discharge Plan Discharge Clinical Impression: ETOH abuse, Depression Patient Disposition: Still a Patient Prescriptions: No Action acetaminophen 325 mg tablet 325 mg PO Q6-8H PRN (Reason: Pain) ibuprofen 600 mg tablet 600 mg PO TID gabapentin 600 mg tablet 600 mg PO BEDTIME venlafaxine 37.5 mg capsule,extended release 24hr 75 mg PO DAILY hydroxyzine HCl 50 mg tablet 50 mg PO Q6H PRN (Reason: anxiety) quetiapine 50 mg tablet 150 mg PO BEDTIME PRN (Reason: Insomnia) melatonin 5 mg tablet 5 mg PO BEDTIME PRN (Reason: Insomnia) Eliquis DVT-PE Treat 30D Start 5 mg (74 tabs) tablets,dose pack 5 mg PO DIRECTED Interventions: [place]-Suicide Risk Severity Scale Last Done: 09/08/23 01:00
[2023-09-07] MEDS: 0.9 % Sodium Chloride 1,000 ML 999 ML IV (18:39)
[2023-09-07 18:47] LABS: MANUAL DIFF FLAG NO
[2023-09-07 18:48] LABS: Basophils Absolute Auto 0.1 X10*3/uL (0.0-0.2); Basophils Percent Auto 0.7 % (0-2); Eosinophils Absolute Auto 0.2 X10*3/uL (0.0-0.4); Eosinophils Percent Auto 2.3 % (0-4); Hematocrit 39.4 % (37.0-47.0); Hemoglobin 13.3 g/dl (12.0-16.0); Imm Gran Abs Auto 0.02 X10*3/uL (0.00-0.03); Imm Gran Pct Auto 0.3 % (0.0-0.4); Lymphocytes Absolute Auto 4.1 X10*3/uL (1.2-4.9); Lymphocytes Percent Auto 58.4 % (20-40); Mean Corpuscular HGB Conc 33.8 g/dl (31.0-35.0); Mean Corpuscular Hemoglobin 31.1 pg (27.0-33.0); Mean Corpuscular Volume 92.3 fL (80.0-98.0); Mean Platelet Volume 9.3 fL (9.4-12.3); Monocytes Absolute Auto 0.4 X10*3/uL (0.1-1.2); Monocytes Percent Auto 5.7 % (2-11); Neutrophils Absolute Auto 2.3 x10*3/uL (2.0-8.3); Neutrophils Percent Auto 32.6 % (45-73); Platelet Count 320 X10*3/uL (160-400); Red Blood Count 4.27 X10*6/uL (4.20-5.50)
[2023-09-07 19:05] LABS: Alanine Aminotransferase 15 U/L (0-31); Albumin Level 4.5 g/dL (3.5-5.0); Alkaline Phosphatase 68 U/L (39-117); Anion Gap 17 (12-20); Aspartate Amino Transferase 23 U/L (5-31); Bilirubin Total 0.4 mg/dL (0.0-1.0); Blood Urea Nitrogen 12 mg/dL (9-16); Calcium 9.6 mg/dL (8.4-10.2); Carbon Dioxide 25 mmol/L (22-29); Chloride 108 mmol/L (96-108); Creatinine Clr Calc Pharmacy 74.6; Estimated Glomerular Filt Rate > 60; Ethanol 234 mg/dL; Glucose Random 87 mg/dL (60-115); Magnesium 1.9 mg/dL (1.6-2.6); Potassium 3.6 mmol/L (3.3-5.1); Sodium 146 mmol/L (135-145); Total Protein 8.2 g/dL (6.5-8.0)
[2023-09-07 19:41] VITALS: BP 141/78; PULSE 92; RESP 16; O2SAT 95
--- NOTE | 2023-09-07 19:42 | PC.NURSE ---
Assumed care of this pt at 19:30, Pt laying in bed quietly, offers no complaints at this time. Currently denying SI/HI. VSS. NS running at this time. Sitter at bedside.
[2023-09-08 01:20] VITALS: BP 142/74; PULSE 104; RESP 16
[2023-09-08] MEDS: LORazepam 1 MG TABLET 2 MG PO (02:07)
[2023-09-08 02:54] LABS: Amphetamine Screen Urine Not Detected (Not Detect); Barbiturates, Urine Not Detected (Not Detect); Benzodiazepines Screen Urine POSITIVE (Not Detect); Cannabinoid Screen Urine Not Detected (Not Detect); Cocaine Screen Urine Not Detected (Not Detect); Fentanyl, urine Not Detected (Not Detect); Opiate Screen Urine Not Detected (Not Detect); Phencyclidine Screen Urine Not Detected (Not Detect)
[2023-09-08 08:07] VITALS: RESP 16
[2023-09-08 08:35] LABS: Appearance Urine Clear; Color Urine Yellow; Glucose Urine UA Negative (Negative); Leukocyte Esterase Urine Negative (Negative); Nitrite Urine Negative (Negative); PH 5.5 (5.0-9.0); Specific Gravity - Urine 1.015 (1.005-1.025); Urine Blood Negative (Negative); Urine Ketones Trace mg/dL (Negative); Urine Protein Negative (Neg-Trace)
--- NOTE | 2023-09-08 08:53 | MHC.CARE ---
patient seen by the care team, she is primarily focused on detox. Specifically [facility], message sent via [facility] to Cris Staley and Nehal Perry re: detox
--- NOTE | 2023-09-08 09:44 | MHC.RECOVRN ---
Met with pt in ED22H after cleared by CARE Team. Pt reports alcohol use x 3 days, approx 4 Smirnoff nips daily. Pt reports she had been at [facility] in [place] when she had a disagreement with a house mate. Pt reports she began drinking and was told she needed ATS before returning to the house. Pt reports she left the house on Friday and has been calling [facility] since. Pt reports desire to discharge to son's house and follow up with these ATS facilities. Pt provided with bus passes. Denies questions or concerns for t/w. Provider aware.
== END 2023-09-08 10:01 | disposition home or self-care (01) ==
PROVIDERS: Emergency Provider Internal Medicine
DX: F10.129 Alcohol abuse with intoxication, unspecified (principal); Y90.7 Blood alcohol level of 200-239 mg/100 ml; F33.1 Major depressive disorder, recurrent, moderate; Z79.899 Other long term (current) drug therapy
CPT/HCPCS: 36415; 80053; 80307; 81003; 83735; 85025; 96360; 99285

== ENCOUNTER 2023-09-08 18:49 | Emergency (ER) | payer OTHER, SELFPAY ==
[2023-09-08 19:17] VITALS: BP 120/69; BP 138/82; PULSE 92; PULSE 93; RESP 16; TEMP 36.9; O2SAT 95; O2SAT 96; BMI 30.2
--- NOTE | 2023-09-08 19:37 | ED.GENADULT ---
HPI - General Adult General Chief complaint: ETOH/Substance Use Stated complaint: ETOH Time Seen by Provider: 09/08/23 19:29 History of Present Illness HPI narrative: 57 years old with history of alcohol use disorder, depression, presents to the emergency room for alcohol intoxication. Patient reports that she had for nips and a few beers today which also represents her usual daily amount of alcohol consumed. She reports that she presented to the emergency room because she is afraid that she will drink more throughout the night and tomorrow she has a court case that she does not want to miss. Otherwise patient denies recent falls, denies headache, blurry vision or slurred speech. Denies abdominal pain nausea or vomiting No chest pain, shortness of breath or cough. Patient reports that she has not interested in detox and she needs to attend her court date. Does not have a sober ride moment. Related Data Home Medications Medication Instructions Recorded Confirmed gabapentin 600 mg tablet 600 mg PO BEDTIME 06/01/23 07/24/23 hydroxyzine HCl 50 mg tablet 50 mg PO Q6H PRN anxiety 06/01/23 07/24/23 melatonin 5 mg tablet 5 mg PO BEDTIME PRN Insomnia 06/01/23 07/24/23 quetiapine 50 mg tablet 150 mg PO BEDTIME PRN Insomnia 06/01/23 07/24/23 venlafaxine 37.5 mg 75 mg PO DAILY 06/01/23 07/24/23 capsule,extended release 24 hr acetaminophen 325 mg tablet 325 mg PO Q6-8H PRN Pain 07/01/23 07/24/23 ibuprofen 600 mg tablet 600 mg PO TID 07/01/23 07/24/23 apixaban 5 mg (74 tabs) tablets in 5 mg PO DIRECTED 07/24/23 07/24/23 a dose pack (Eliquis DVT-PE Treat 30D Start) Allergies Allergy/AdvReac Type Severity Reaction Status Date / Time No Known Allergies Allergy Verified 09/03/23 13:32 [No Known Allergies*] Review of Systems Review of Systems: Yes all other systems are reviewed and are negative PMFSH Past Medical History Onset Date is defined in the Problem List Problems that require an onset date and time if occurred within 24 hrs of arrival to the ED Aortic Dissection and Rupture; Neurologic impairment; Cardiopulmonary Arrest; Endotracheal Intubation; Insertion or Replacement of Mechanical Circulatory Assist Device Medical History Numbness of left hand Bacteremia Hydroureteronephrosis Rash ETOH abuse TBI (traumatic brain injury) Mood disorder as late effect of traumatic brain injury Depression Surgical History Hx of cystoscopy Social History Social History Household Members: Unknown / Unable to assess Household Members Other:: Reports has been [employer]. Housing: Apartment Alcohol intake: current Alcohol intake frequency: 3 or more drinks per day Alcohol type: beer and hard liquor Comment: Pt ambulates independently with no apparent limitations. 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 Normal Bowel sounds. : No cva tenderness Neuro: Alert, oriented x4, PERRL Strenght 5/5 on all extremities Sensation is preserved in both lower and upper extremities Index to nose: normal Cranial Nerves II-XII grossly intact No dysarthria, or aphasia No neglet. Visual champion are normal bilaterally Psych: Cooperative, NO SI Course Reevaluation(s) Reevaluation #1: Sleeping comfortably. Hemodynamically stable. Will sign out to dr. Corea Time: 21:25 Medical Decision Making Medical Decision Making MDM Narrative: Presented to emergency room for alcohol intoxication. Not interested in detox. Will keep the patient overnight until clinically sober. Discharge Plan Discharge Clinical Impression: ETOH abuse Prescriptions: No Action acetaminophen 325 mg tablet 325 mg PO Q6-8H PRN (Reason: Pain) ibuprofen 600 mg tablet 600 mg PO TID gabapentin 600 mg tablet 600 mg PO BEDTIME venlafaxine 37.5 mg capsule,extended release 24hr 75 mg PO DAILY hydroxyzine HCl 50 mg tablet 50 mg PO Q6H PRN (Reason: anxiety) quetiapine 50 mg tablet 150 mg PO BEDTIME PRN (Reason: Insomnia) melatonin 5 mg tablet 5 mg PO BEDTIME PRN (Reason: Insomnia) Eliquis DVT-PE Treat 30D Start 5 mg (74 tabs) tablets,dose pack 5 mg PO DIRECTED
--- NOTE | 2023-09-08 21:46 | PC.NURSE ---
pt resting comfortably in bed with eyes closed, breathing even and unlabored. no apparent distress at this time. able to make needs known to staff
[2023-09-09 00:29] VITALS: BP 126/69; PULSE 98; RESP 16; TEMP 37.1; O2SAT 93
--- NOTE | 2023-09-09 01:01 | PC.NURSE ---
pt ambulated to the bathroom. back to resting in bed with eyes closed
[2023-09-09 04:38] VITALS: BP 139/66; PULSE 99; RESP 16; TEMP 36.7; O2SAT 95
[2023-09-09] MEDS: Loperamide HCl 2 MG CAPSULE PO (05:21)
[2023-09-09 07:03] VITALS: BP 147/84; PULSE 104; RESP 18; TEMP 36; O2SAT 96
--- NOTE | 2023-09-09 07:07 | PC.NURSE ---
discharge summary and instructions were done by previous nurse.
== END 2023-09-09 07:07 | disposition home or self-care (01) ==
PROVIDERS: Emergency Provider Student in an Organized Health Care Education/Training Program
DX: F10.129 Alcohol abuse with intoxication, unspecified (principal); Y90.9 Presence of alcohol in blood, level not specified; Z71.41 Alcohol abuse counseling and surveillance of alcoholic
CPT/HCPCS: 99283; 99284

== ENCOUNTER 2023-10-03 22:08 | Emergency (ER) | payer OTHER, SELFPAY ==
[2023-10-03 22:21] VITALS: BP 154/95; BP 154/96; PULSE 104; PULSE 99; RESP 18; TEMP 36.6; O2SAT 97; BMI 31.2
[2023-10-03 22:28] VITALS: BP 154/95; PULSE 99; RESP 18; TEMP 36.6; O2SAT 97
[2023-10-03 22:55] LABS: MANUAL DIFF FLAG NO
[2023-10-03 22:56] LABS: Basophils Absolute Auto 0.1 X10*3/uL (0.0-0.2); Basophils Percent Auto 0.8 % (0-2); Eosinophils Absolute Auto 0.3 X10*3/uL (0.0-0.4); Eosinophils Percent Auto 2.6 % (0-4); Hematocrit 43.1 % (37.0-47.0); Hemoglobin 14.3 g/dl (12.0-16.0); Imm Gran Abs Auto 0.03 X10*3/uL (0.00-0.03); Imm Gran Pct Auto 0.3 % (0.0-0.4); Lymphocytes Absolute Auto 4.6 X10*3/uL (1.2-4.9); Lymphocytes Percent Auto 44.7 % (20-40); Mean Corpuscular HGB Conc 33.2 g/dl (31.0-35.0); Mean Corpuscular Hemoglobin 30.4 pg (27.0-33.0); Mean Corpuscular Volume 91.5 fL (80.0-98.0); Mean Platelet Volume 9.3 fL (9.4-12.3); Monocytes Absolute Auto 0.7 X10*3/uL (0.1-1.2); Monocytes Percent Auto 6.9 % (2-11); Neutrophils Absolute Auto 4.7 x10*3/uL (2.0-8.3); Neutrophils Percent Auto 44.7 % (45-73); Platelet Count 374 X10*3/uL (160-400); Red Blood Count 4.71 X10*6/uL (4.20-5.50); Red Cell Distribution Width 13.2 % (11.0-16.0); White Blood Count 10.4 X10*3/uL (4.8-10.8)
[2023-10-03 22:58] LABS: Appearance Urine Clear; Color Urine Yellow; Glucose Urine UA Negative (Negative); Leukocyte Esterase Urine Negative (Negative); Nitrite Urine Negative (Negative); PH 5.5 (5.0-9.0); Specific Gravity - Urine 1.015 (1.005-1.025); Urine Blood Negative (Negative); Urine Ketones Negative (Negative); Urine Protein Negative (Neg-Trace)
[2023-10-03 23:05] LABS: Amphetamine Screen Urine Not Detected (Not Detect); Barbiturates, Urine Not Detected (Not Detect); Benzodiazepines Screen Urine Not Detected (Not Detect); Cannabinoid Screen Urine Not Detected (Not Detect); Cocaine Screen Urine Not Detected (Not Detect); Fentanyl, urine Not Detected (Not Detect); Opiate Screen Urine Not Detected (Not Detect); Phencyclidine Screen Urine Not Detected (Not Detect)
--- NOTE | 2023-10-03 23:10 | ED_ITS ---
HPI - General Adult General Chief complaint: Psychiatric Symptoms Stated complaint: ETOH USE,SI PER EMS Time Seen by Provider: 10/03/23 22:46 Source: patient Limitations: other ( alcohol ingestion) History of Present Illness HPI narrative: 57-year-old female with a history alcohol dependence, presents by EMS for acute alcohol intoxication as well as suicidal ideation. Patient states that she is very upset that her son was involved in an OUI. She admits to drinking 3-4 nips today. She is feeling depressed and having thoughts of self-harm without any specific plan. She denies any homicidal ideation. No auditory or visual hallucinations. She is interested in detox. He currently has no physical complaints. She denies any trauma. No falls or head strike. She denies any illicit drug abuse. Related Data Home Medications Medication Instructions Recorded Confirmed gabapentin 600 mg tablet 600 mg PO BEDTIME 06/01/23 07/24/23 hydroxyzine HCl 50 mg tablet 50 mg PO Q6H PRN anxiety 06/01/23 07/24/23 melatonin 5 mg tablet 5 mg PO BEDTIME PRN Insomnia 06/01/23 07/24/23 quetiapine 50 mg tablet 150 mg PO BEDTIME PRN Insomnia 06/01/23 07/24/23 venlafaxine 37.5 mg 75 mg PO DAILY 06/01/23 07/24/23 capsule,extended release 24 hr acetaminophen 325 mg tablet 325 mg PO Q6-8H PRN Pain 07/01/23 07/24/23 ibuprofen 600 mg tablet 600 mg PO TID 07/01/23 07/24/23 apixaban 5 mg (74 tabs) tablets in 5 mg PO DIRECTED 07/24/23 07/24/23 a dose pack (Eliquis DVT-PE Treat 30D Start) Allergies Allergy/AdvReac Type Severity Reaction Status Date / Time No Known Allergies Allergy Verified 09/03/23 13:32 [No Known Allergies*] Review of Systems 2 Constitutional: Constitutional: Denies chills, Denies fever(s) and Denies headache(s) Eyes: Eyes: Denies change in vision and Denies other (No redness.) ENT: Denies headache(s), Denies nasal congestion, Denies nasal discharge, Denies neck pain and Denies sore throat Cardiovascular: Cardiovascular: Denies chest pain, Denies palpitations, Denies dyspnea, Denies dyspnea on exertion and Denies orthopnea Respiratory: Respiratory: Denies cough, Denies dyspnea and Denies dyspnea on exertion Gastrointestinal: Gastrointestinal: Denies abdominal pain, Denies melena, Denies hematochezia, Denies diarrhea, Denies nausea and Denies vomiting Genitourinary: Genitourinary: Denies dysuria and Denies urinary urgency Musculoskeletal: Musculoskeletal: Denies back pain, Denies muscle weakness, Denies neck pain and Denies numbness Integumentary/Breasts: Skin/Breast: Denies rash Neurologic: Denies headache(s), Denies focal weakness and Denies numbness Psychiatric: Psychiatric: Reports depression, Reports hopelessness and Reports suicidal ideation Endocrine: Endocrine: Denies palpitations PMFSH Past Medical History Medical History Numbness of left hand Bacteremia Hydroureteronephrosis Rash ETOH abuse TBI (traumatic brain injury) Mood disorder as late effect of traumatic brain injury Depression Surgical History Hx of cystoscopy Social History Social History Household Members: Unknown / Unable to assess Household Members Other:: Reports has been [employer] surfing. Housing: Apartment Alcohol intake: current Alcohol intake frequency: 3 or more drinks per day Alcohol type: beer and hard liquor Comment: Pt ambulates independently with no apparent limitations. 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 Sexual orientation: Straight/Heterosexual Physical Exam ED Vital Signs: Vital Signs - 24 hr 10/03/23 22:21 10/03/23 22:28 10/04/23 06:28 Temperature 97.9 F 97.9 F 99.2 F Pulse Rate 99 99 112 H Respiratory Rate 18 18 17 Blood Pressure 154/95 H 154/95 H 138/77 Pulse Oximetry 97 97 95 Oxygen Delivery Method Room Air Room Air Room Air BMI result Body Mass Index 31.2 Const General: alert, awake and Physically active Resp Auscultation: clear to auscultation bilaterally Cardio Rate: regular rate Rhythm: regular rhythm Psych Attitude: cooperative Thought content: Suicidality present and Depressive thoughts present Course Course Course Narrative: October 04, 2023, 2:00 a.m. patient resting comfortably at this time. No evidence of withdrawal. Signed out in stable condition pending care team evaluation and sober reassessment. Reevaluation(s) Reevaluation #1: Physician observation continued. VS stable, no acute events overnight, pending CARE team and reasessment once more sober. hx of chronic presentations of same 724am 10/04/23 Reevaluation #2: Physician observation ended at 1003am Patient seen and cleared by CARE team Plan is to follow up as outpatient. NAD, lungs clear, CV RRR, Abd nontender, Neuro intact. Disposition is for home. Medications Administered Generic Name Dose Route Start Last Admin Trade Name Freq PRN Reason Stop Dose Admin Lorazepam 2 mg 10/04/23 06:18 10/04/23 06:23 Lorazepam 1 Mg Tablet PO 2 mg RQ4H WHILE AWAKE PRN Administration Alcohol Withdrawal Medical Decision Making Medical Decision Making MDM Narrative: 57-year-old female with a history of alcohol abuse, suicidal ideation. No evidence of withdrawal at this time. Alcohol returned at 346 at 2247 on October 03, 2023. Patient to be evaluated by care team. Differential Diagnosis Differential Diagnoses: The differential diagnosis associated with the presentation includes Alcohol dependence Alcohol withdrawal Alcohol intoxication Suicidal ideation acute stress reaction Depression Consult Healthcare Provider Management of the patient was discussed with: Behavioral Health Provider Lab Data [facility] Lab Attestation statement: I reviewed the patient's lab results. 10/03/23 22:47 10/03/23 22:47 Labs: Lab Results 10/03/23 Range/Units 22:47 WBC 10.4 (4.8-10.8) X10*3/uL RBC 4.71 (4.20-5.50) X10*6/uL Hgb 14.3 (12.0-16.0) g/dl Hct 43.1 (37.0-47.0) % MCV 91.5 (80.0-98.0) fL MCH 30.4 (27.0-33.0) pg MCHC 33.2 (31.0-35.0) g/dl RDW 13.2 (11.0-16.0) % Plt Count 374 (160-400) X10*3/uL MPV 9.3 L (9.4-12.3) fL Immature Gran % (Auto) 0.3 (0.0-0.4) % Neut % (Auto) 44.7 L (45-73) % Lymph % (Auto) 44.7 H (20-40) % [place] % (Auto) 6.9 (2-11) % Eos % (Auto) 2.6 (0-4) % Baso % (Auto) 0.8 (0-2) % Lymph # (Auto) 4.6 (1.2-4.9) X10*3/uL [place] # (Auto) 0.7 (0.1-1.2) X10*3/uL Eos # (Auto) 0.3 (0.0-0.4) X10*3/uL Baso # (Auto) 0.1 (0.0-0.2) X10*3/uL Abs Immat Gran (auto) 0.03 (0.00-0.03) X10*3/uL Absolute Neuts (auto) 4.7 (2.0-8.3) x10*3/uL Absolute Nucleated RBC 0.000 (0.0-0.012) X10*3/uL Nucleated RBC % (auto) 0.0 (0.0-0.2) /100WBC Sodium 143 (135-145) mmol/L Potassium 3.7 (3.3-5.1) mmol/L Chloride 105 (96-108) mmol/L Carbon Dioxide 26 (22-29) mmol/L Anion Gap 16 (12-20) BUN 15 (9-16) mg/dL Creatinine 0.85 (0.5-1.4) mg/dL Estim Creat Clear Calc 65.9 Estimated GFR > 60 Random Glucose 114 (60-115) mg/dL Calcium 9.4 (8.4-10.2) mg/dL Total Bilirubin 0.3 (0.0-1.0) mg/dL AST 14 (5-31) U/L ALT 8 (0-31) U/L Alkaline Phosphatase 69 (39-117) U/L Total Protein 7.9 (6.5-8.0) g/dL Albumin 4.3 (3.5-5.0) g/dL Urine Color Yellow Urine Appearance Clear Urine pH 5.5 (5.0-9.0) Ur Specific [place] 1.015 (1.005-1.025) Urine Protein Negative (Neg-Trace) mg/dL Urine Glucose (UA) Negative (Negative) mg/dL Urine Ketones Negative (Negative) mg/dL Urine Blood Negative (Negative) Urine Nitrite Negative (Negative) Ur Leukocyte Esterase Negative (Negative) Urine Opiates Screen Not Detected (Not Detect) Urine Fentanyl Screen Not Detected (Not Detect) Ur Barbiturates Screen Not Detected (Not Detect) Ur Phencyclidine Scrn Not Detected (Not Detect) Ur Amphetamines Screen Not Detected (Not Detect) U Benzodiazepines Scrn Not Detected (Not Detect) Urine Cocaine Screen Not Detected (Not Detect) U Marijuana (THC) Screen Not Detected (Not Detect) Ethyl Alcohol 346 H* mg/dL External Record Review External record reviewed: Inpatient record Social Determinants Patient?s care significantly limited by Social Determinants of Health including: Alcoholism and drug addiction in family and Problems related to primary support group Discharge Plan Discharge Clinical Impression: ETOH abuse Patient Disposition: Still a Patient Instructions: Abuse of Alcohol (ED) Additional Instructions: Avoid excessive use of alcohol. Call for Detox if you choose. Follow-up with your primary care provider. Call this week to schedule a follow- up appointment. Return to the emergency department if you have any worsening of symptoms, or any concerns. Get well soon! Prescriptions: No Action acetaminophen 325 mg tablet 325 mg PO Q6-8H PRN (Reason: Pain) ibuprofen 600 mg tablet 600 mg PO TID gabapentin 600 mg tablet 600 mg PO BEDTIME venlafaxine 37.5 mg capsule,extended release 24hr 75 mg PO DAILY hydroxyzine HCl 50 mg tablet 50 mg PO Q6H PRN (Reason: anxiety) quetiapine 50 mg tablet 150 mg PO BEDTIME PRN (Reason: Insomnia) melatonin 5 mg tablet 5 mg PO BEDTIME PRN (Reason: Insomnia) Eliquis DVT-PE Treat 30D Start 5 mg (74 tabs) tablets,dose pack 5 mg PO DIRECTED Interventions: [place]-Suicide Risk Severity Scale Last Done: 10/04/23 06:27
[2023-10-03 23:12] LABS: Alanine Aminotransferase 8 U/L (0-31); Albumin Level 4.3 g/dL (3.5-5.0); Alkaline Phosphatase 69 U/L (39-117); Anion Gap 16 (12-20); Aspartate Amino Transferase 14 U/L (5-31); Bilirubin Total 0.3 mg/dL (0.0-1.0); Blood Urea Nitrogen 15 mg/dL (9-16); Calcium 9.4 mg/dL (8.4-10.2); Carbon Dioxide 26 mmol/L (22-29); Chloride 105 mmol/L (96-108); Creatinine Clr Calc Pharmacy 65.9; Estimated Glomerular Filt Rate > 60; Ethanol 346 mg/dL; Glucose Random 114 mg/dL (60-115); Potassium 3.7 mmol/L (3.3-5.1); Sodium 143 mmol/L (135-145); Total Protein 7.9 g/dL (6.5-8.0)
--- NOTE | 2023-10-04 06:18 | MHC.CARE ---
Pt will be assessed around 9am Sat. due to High BAL of 346.
[2023-10-04] MEDS: LORazepam 1 MG TABLET 2 MG PO (06:23)
[2023-10-04 06:28] VITALS: BP 138/77; PULSE 112; RESP 17; TEMP 37.3; O2SAT 95
== END 2023-10-04 10:15 | disposition home or self-care (01) ==
PROVIDERS: Emergency Provider Internal Medicine; PCP Physician Assistant
DX: F10.10 Alcohol abuse, uncomplicated (principal); Y90.8 Blood alcohol level of 240 mg/100 ml or more; R45.851 Suicidal ideations
CPT/HCPCS: 36415; 80053; 80307; 81003; 85025; 99284; S9485

== ENCOUNTER 2023-10-04 18:34 | Emergency (ER) | payer OTHER, SELFPAY ==
[2023-10-04 19:03] VITALS: BP 127/71; PULSE 90; RESP 12; TEMP 36.4; O2SAT 94; BMI 30.7
--- NOTE | 2023-10-04 19:09 | ED.PSYCH ---
HPI - Psych General Chief Complaint: ETOH/Substance Use Stated Complaint: Depression, psych eval Time Seen by Provider: 10/04/23 18:46 Source: patient and EMS Mode of arrival: EMS Limitations: no limitations History of Present Illness HPI Narrative: This is a 57-year-old female with a history of alcohol use disorder who presents the ER with complaints of depression, vague SI. No plan. No HI. No hallucination. Drinks alcohol. Last drink just prior to arrival. Had 6 nips. No substance use. No physical complaints Related Data Home Medications Medication Instructions Recorded Confirmed gabapentin 600 mg tablet 600 mg PO BEDTIME 06/01/23 07/24/23 hydroxyzine HCl 50 mg tablet 50 mg PO Q6H PRN anxiety 06/01/23 07/24/23 melatonin 5 mg tablet 5 mg PO BEDTIME PRN Insomnia 06/01/23 07/24/23 quetiapine 50 mg tablet 150 mg PO BEDTIME PRN Insomnia 06/01/23 07/24/23 venlafaxine 37.5 mg 75 mg PO DAILY 06/01/23 07/24/23 capsule,extended release 24 hr acetaminophen 325 mg tablet 325 mg PO Q6-8H PRN Pain 07/01/23 07/24/23 ibuprofen 600 mg tablet 600 mg PO TID 07/01/23 07/24/23 apixaban 5 mg (74 tabs) tablets in 5 mg PO DIRECTED 07/24/23 07/24/23 a dose pack (Eliquis DVT-PE Treat 30D Start) Allergies Allergy/AdvReac Type Severity Reaction Status Date / Time No Known Allergies Allergy Verified 10/04/23 19:02 [No Known Allergies*] Review of Systems Review of Systems: Yes all other systems are reviewed and are negative Constitutional: Constitutional: Reports no additional constitutional complaints, Denies body ache(s), Denies chills, Denies fever(s), Denies headache(s) and Denies weakness Eyes: Eyes: Reports no additional eye complaints and Denies change in vision ENT: Reports system reviewed and no additional complaints, except as documented, Denies dizziness, Denies headache(s), Denies nasal congestion, Denies nasal discharge and Denies neck pain Cardiovascular: Cardiovascular: Reports no additional cardiovascular complaints, Denies chest pain, Denies leg edema and Denies dyspnea Respiratory: Respiratory: Reports no additional respiratory complaints, Denies cough and Denies dyspnea Gastrointestinal: Gastrointestinal: Reports no additional gastrointestinal complaints, Denies abdominal pain, Denies diarrhea, Denies nausea and Denies vomiting Genitourinary: Genitourinary: Reports no additional female genitourinary complaints and Denies urinary incontinence Musculoskeletal: Musculoskeletal: Reports no additional musculoskeletal complaints, Denies back pain, Denies arthralgias, Denies joint swelling, Denies neck pain, Denies numbness and Denies tingling Integumentary/Breasts: Skin/Breast: Reports system reviewed and no additional complaints, except as docu and Denies rash Neurologic: Reports system reviewed and no additional complaints, except as documented, Denies Abnormal speech present, Denies dizziness, Denies headache(s), Denies numbness, Denies tingling and Denies weakness Psychiatric: Psychiatric: Reports depression, Denies homicidal ideation and Reports suicidal ideation PMFSH Past Medical History Attestation statement: The following information was validated with the patient. Source: old records reviewed and nursing notes reviewed Medical History Numbness of left hand Bacteremia Hydroureteronephrosis Rash ETOH abuse TBI (traumatic brain injury) Mood disorder as late effect of traumatic brain injury Depression Surgical History Hx of cystoscopy Social History Social History Household Members: Unknown / Unable to assess Household Members Other:: Reports has been couch surfing. Housing: Apartment Alcohol intake: current Alcohol intake frequency: 3 or more drinks per day Alcohol type: beer and hard liquor Comment: Pt ambulates independently with no apparent limitations. 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 Sexual orientation: Straight/Heterosexual Physical Exam Vital Signs: Vital Signs: Last Vital Signs Temp 96.9 F 10/04/23 22:13 Pulse 103 H 10/04/23 22:13 Resp 14 10/04/23 22:13 BP 124/81 10/04/23 22:13 Pulse Ox 91 L 10/04/23 22:13 O2 Del Method Room Air 10/04/23 22:13 BMI result Body Mass Index 30.7 Const: General: cooperative, healthy appearing, comfortable and no acute distress Orientation/consciousness: patient oriented x3 Limitations: no limitations HEENT: Head: Yes normal to inspection Ears: hearing grossly normal bilaterally General nose exam: Normal external nose present Face and sinus: Yes normal facial exam Mouth: Normal oral and palatal mucosa present Throat: Yes posterior oropharynx normal Eyes: General: appearance normal, both eyes and all related structures Pupils: Equal, round and reactive pupils present Neck: Neck: Yes normal visual inspection Chest: Chest palpation & inspection: normal inspection of the chest Resp: Effort & Inspection: normal respiratory effort Auscultation: clear to auscultation bilaterally Cardio: Rate: regular rate Rhythm: regular rhythm Peripheral pulses: Peripheral pulses 2+ throughout GI: Inspection: Yes normal to inspection Palpation (GI): Soft to palpation and nontender Auscultation: normal bowel sounds Back/Spine/Pelvis: Thoracic/Lumbar Spine: thoracic and lumbar spine normal to inspection Skin: General skin exam: no rashes or lesions noted Neuro: General: patient oriented x3, no focal motor deficits and normal sensation to monofilament Cranial nerves: Yes Equal, round and reactive pupils present Cognition (Neuro): normal cognition Speech: No Abnormal speech present Gait exam (Neuro): Normal gait present Motor exam (neuro): 5/5 motor strength present throughout Extrem: General: Yes normal to inspection Course Course Course Narrative: Patient had labs drawn last night. I do not believe that she needs repeat labs. Her blood alcohol level is 279. Her drug screen is positive for benzos. I have low suspicion for acute ingestion or trauma. Patient is medically cleared to see crisis when she is clinically sober. Reevaluation(s) Reevaluation #1: [id number]-Placed in physician observation pending CARE team evaluation Reevaluation #2: [id number]-Sign out to Dr Stout pending CARE team Medical Decision Making Medical Decision Making MDM Narrative: This is a 57-year-old female with a history of alcohol use disorder who presents the ER with complaints of depression, vague SI. No plan. No HI. No hallucination. Drinks alcohol. Last drink just prior to arrival. Had 6 nips. No substance use. No physical complaints No concern for acute ingestion or trauma Will order drug screen, alcohol level and care team consultation. Differential Diagnosis Differential Diagnoses: The differential diagnosis associated with the presentation includes Alcohol use disorder, depression Admission/Observation Consideration of admission/observation: Escalation of care including admission/observation considered Consult Healthcare Provider Management of the patient was discussed with: Behavioral Health Provider Lab Data MDM Lab Attestation statement: I reviewed the patient's lab results. Blood alcohol is 279 Patient positive for benzos on drug screen Labs: Lab Results 10/04/23 10/04/23 Range/Units 20:05 22:12 Urine Opiates Screen Not Detected (Not Detect) Urine Fentanyl Screen Not Detected (Not Detect) Ur Barbiturates Screen Not Detected (Not Detect) Ur Phencyclidine Scrn Not Detected (Not Detect) Ur Amphetamines Screen Not Detected (Not Detect) U Benzodiazepines Scrn POSITIVE H (Not Detect) Urine Cocaine Screen Not Detected (Not Detect) U Marijuana (THC) Screen Not Detected (Not Detect) Ethyl Alcohol 279 mg/dL Independent Historian Clinical information obtained from an independent historian. History obtained from or confirmed by: EMS Discharge Plan Discharge Clinical Impression: Alcoholic intoxication, Acute depression Patient Disposition: Still a Patient Prescriptions: No Action acetaminophen 325 mg tablet 325 mg PO Q6-8H PRN (Reason: Pain) ibuprofen 600 mg tablet 600 mg PO TID gabapentin 600 mg tablet 600 mg PO BEDTIME venlafaxine 37.5 mg capsule,extended release 24hr 75 mg PO DAILY hydroxyzine HCl 50 mg tablet 50 mg PO Q6H PRN (Reason: anxiety) quetiapine 50 mg tablet 150 mg PO BEDTIME PRN (Reason: Insomnia) melatonin 5 mg tablet 5 mg PO BEDTIME PRN (Reason: Insomnia) Caesar DVT-PE Treat 30D Start 5 mg (74 tabs) tablets,dose pack 5 mg PO DIRECTED
[2023-10-04 19:28] VITALS: BP 134/75; PULSE 101; RESP 16; TEMP 36.3; O2SAT 97
[2023-10-04 20:20] LABS: Ethanol 279 mg/dL
[2023-10-04 22:13] VITALS: BP 124/81; PULSE 103; RESP 14; TEMP 36.1; O2SAT 91
[2023-10-04 22:31] LABS: Amphetamine Screen Urine Not Detected (Not Detect); Barbiturates, Urine Not Detected (Not Detect); Benzodiazepines Screen Urine POSITIVE (Not Detect); Cannabinoid Screen Urine Not Detected (Not Detect); Cocaine Screen Urine Not Detected (Not Detect); Fentanyl, urine Not Detected (Not Detect); Opiate Screen Urine Not Detected (Not Detect); Phencyclidine Screen Urine Not Detected (Not Detect)
[2023-10-05 05:17] VITALS: BP 133/99; PULSE 113; RESP 14; TEMP 36.9; O2SAT 96
[2023-10-05 07:17] VITALS: BP 145/80; PULSE 107; RESP 20; TEMP 36.7; O2SAT 95
[2023-10-05] MEDS: LORazepam 1 MG TABLET 2 MG PO (07:26)
[2023-10-05 09:20] VITALS: BP 130/82; PULSE 113; RESP 20; TEMP 36.9; O2SAT 96
== END 2023-10-05 09:32 | disposition home or self-care (01) ==
PROVIDERS: Nurse Practitioner Family; Emergency Provider Emergency Medicine
DX: F10.120 Alcohol abuse with intoxication, uncomplicated (principal); Y90.8 Blood alcohol level of 240 mg/100 ml or more; F32.A Depression, unspecified; R45.851 Suicidal ideations; Z87.820 Personal history of traumatic brain injury; Z79.01 Long term (current) use of anticoagulants; Z79.899 Other long term (current) drug therapy
CPT/HCPCS: 36415; 80307; 99285

== ENCOUNTER 2023-10-06 15:07 | Emergency (ER) | payer OTHER, SELFPAY ==
--- NOTE | ~2023-10-06 | CT_ITS ---
EXAMINATION: CT FACIAL BONES WITHOUT CONTRAST CLINICAL INFORMATION: History of fall with facial trauma. COMPARISON: Head CT from 07/23/2023 TECHNIQUE: Noncontrast CT imaging examination of the facial bones. Axial images and multiplanar reformatted images are reviewed. This CT examination was performed using dose optimization techniques as appropriate, variously including the following: *Automated exposure control *Adjustment of mA and/or kV according to patient size (this includes techniques or standardized protocols for targeted exams where dose is matched to indication/reason for exam; i.e. extremities or head) *Use of iterative reconstruction technique DLP: 282.16 mGy-cm for the facial bones (1213 mGy-cm total for CT exams of the head, C-spine and face). FINDINGS: The globes and orbital collier, including lamina papyracea, are intact. The orbital apex, optic canals, and retrobulbar fat planes are normal. The maxilla, mandible and temporomandibular joints are intact. There is periapical lucency around roots of the left maxillary first molar tooth. Nasal bones, pterygoid plates and zygomatic arches are normal. There is mucosal thickening of the posterior and inferior wall of the left maxillary sinus. This is similar in appearance compared to 01/31/2023. No air-fluid levels within paranasal sinuses. Minimal mucus is present within the ostium of the left maxillary sinus. No soft tissue hematoma or focal fluid collection within the face. No pathologic sized lymph nodes. The parotid and [address]/CT facial bones wo IV con IMPRESSION: * The horizontal and vertical buttresses of the face are intact. No acute maxillofacial bone trauma or soft tissue hematoma. * Incidentally noted is dental/endodontic disease with presence of periapical lucency around roots of the left maxillary first molar tooth.
--- NOTE | ~2023-10-06 | CT_ITS ---
EXAMINATION: CT HEAD WITHOUT CONTRAST CLINICAL INFORMATION: Head trauma. COMPARISON: CT head dated 07/23/2023. TECHNIQUE: Contiguous axial imaging was performed from the skull base to vertex without intravenous administration of contrast. This CT examination was performed using dose optimization techniques as appropriate, variously including the following: *Automated exposure control *Adjustment of mA and/or kV according to patient size (this includes techniques or standardized protocols for targeted exams where dose is matched to indication/reason for exam; i.e. extremities or head) *Use of iterative reconstruction technique DLP: 606 mGy-cm FINDINGS: There is no intracranial hemorrhage. There is no evidence of acute/subacute cerebral or cerebellar infarction. There is no midline shift or mass effect. There is no extra-axial fluid collection. There is unchanged encephalomalacia involving the lateral temporal lobes bilaterally. No hydrocephalus. The orbits are symmetric and within normal limits. There is mild mucosal thickening within the left maxillary sinus. Remaining paranasal sinuses are clear. There is a small left mastoid air cell effusion, unchanged from prior exam. CT/CT head/brain wo IV con IMPRESSION: No acute intracranial pathology. Stable head CT.
--- NOTE | ~2023-10-06 | CT_ITS ---
EXAMINATION: CT CERVICAL SPINE WITHOUT CONTRAST CLINICAL INFORMATION: Neck trauma. COMPARISON: Cervical spine CT dated 07/23/2023. TECHNIQUE: Noncontrast computed tomography of the cervical spine was performed. This CT examination was performed using dose optimization techniques as appropriate, variously including the following: *Automated exposure control *Adjustment of mA and/or kV according to patient size (this includes techniques or standardized protocols for targeted exams where dose is matched to indication/reason for exam; i.e. extremities or head) *Use of iterative reconstruction technique DLP: 326 mGy-cm FINDINGS: There is straightening of the cervical lordosis. There is unchanged, trace anterolisthesis of C3 in relation to C4 and C4 in relation to C5. The facet joints are anatomically aligned. Vertebral body heights are maintained. Intervertebral disc space heights are preserved. The C1-C2 relationship is anatomic. Moderate degenerative arthropathy of the atlantodental articulation. The dens is intact. There is no prevertebral soft tissue swelling. There is no acute cervical spine fracture. Lung apices are clear. CT/CT cervical spine wo IV con IMPRESSION: No acute osseous cervical spine abnormality. Fleischner guidelines were followed.
--- NOTE | 2023-10-06 15:32 | ED.FALL ---
HPI - Fall General Chief Complaint: Fall Stated Complaint: FALL,HIT HEAD,,NOSE LAC,,ETOH USE PER EMS Time Seen by Provider: 10/06/23 15:23 Source: patient, EMS, RN notes reviewed and old records reviewed Mode of arrival: EMS History of Present Illness HPI Narrative: 57-year-old female with past medical history ETOH abuse, TBI, depression, mood disorder, presenting to the ED via EMS for ETOH intoxication & mechanical trip and fall. Per EMS patient was on her way to ophthalmology appointment when had trip and fall, however per patient was at [facility] and tripped and fell in the parking lot. Unknown LOC. patient admits to drinking 5 nips today, daily drinker, denies withdrawal symptoms at this time. States has been trying to get into [facility] detox all day. Denies other illicit substances, SI or HI. Reports mild back pain and nasal pain. Denies CP/SOB, abdominal pain, nausea/vomiting Related Data Home Medications Medication Instructions Recorded Confirmed gabapentin 600 mg tablet 600 mg PO BEDTIME 06/01/23 07/24/23 hydroxyzine HCl 50 mg tablet 50 mg PO Q6H PRN anxiety 06/01/23 07/24/23 melatonin 5 mg tablet 5 mg PO BEDTIME PRN Insomnia 06/01/23 07/24/23 quetiapine 50 mg tablet 150 mg PO BEDTIME PRN Insomnia 06/01/23 07/24/23 venlafaxine 37.5 mg 75 mg PO DAILY 06/01/23 07/24/23 capsule,extended release 24 hr acetaminophen 325 mg tablet 325 mg PO Q6-8H PRN Pain 07/01/23 07/24/23 ibuprofen 600 mg tablet 600 mg PO TID 07/01/23 07/24/23 apixaban 5 mg (74 tabs) tablets in 5 mg PO DIRECTED 07/24/23 07/24/23 a dose pack (EliStarCard DVT-PE Treat 30D Start) Allergies Allergy/AdvReac Type Severity Reaction Status Date / Time No Known Allergies Allergy Verified 10/06/23 16:02 [No Known Allergies*] Review of Systems Review of Systems: Constitutional: No Fever, No Chills ENT/Mouth: No Ear Pain, No Nasal Congestion, No sore throat, No Rhinorrhea, No Swallowing Difficulty Eyes: No Eye Pain, No Swelling, No RednessNo Vision Changes Cardiovascular: No Chest Pain, No SOB Respiratory: No Cough, No Dyspnea Gastrointestinal: No Nausea, No Vomiting, No Diarrhea, No Constipation, No Abdominal pain Genitourinary: No irregular bleeding, No Dysuria, +No Urinary Incontinence/retention Musculoskeletal: No joint pain, No Myalgias, No Joint Swelling Skin: +Skin Lesions, No rash Neuro: No Weakness, No Numbness, Unknown Loss of Consciousness, No Dizziness, + Headache Psych: No Anxiety/Panic, No Depression, No SI/HI/AH/VH, +Social Issues Yes all other systems are reviewed and are negative Constitutional: Constitutional: Reports as per HPI Neurologic: Denies Abnormal speech present [facility] Past Medical History Attestation statement: The following information was validated with the patient. Source: old records reviewed Medical History Numbness of left hand Bacteremia Hydroureteronephrosis Rash ETOH abuse TBI (traumatic brain injury) Mood disorder as late effect of traumatic brain injury Depression Surgical History Hx of cystoscopy Social History Social History Household Members: Unknown / Unable to assess Household Members Other:: Reports has been [place] surfing. Housing: Apartment Alcohol intake: current Alcohol intake frequency: 3 or more drinks per day Alcohol type: beer and hard liquor Comment: Pt ambulates independently with no apparent limitations. 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 No active bleeding Head: Yes normal to inspection and Yes atraumatic Ears: hearing grossly normal bilaterally General nose exam: normal septum Face and sinus: Yes normal facial exam Mouth: Normal oral and palatal mucosa present and no drooling Eyes: General: appearance normal, both eyes and all related structures Pupils: Equal, round and reactive pupils present EOM: EOMs intact bilaterally Neck: Neck: Yes normal visual inspection and Yes no meningeal signs Resp: Effort & Inspection: normal respiratory effort and no respiratory distress Cardio: Rate: regular rate Heart sounds: S1 normal heart sound present and S2 normal heart sound present GI: Inspection: Yes normal to inspection Palpation (GI): Soft to palpation, nontender, no guarding and not rigid Back/Spine/Pelvis: Other: No midline cervical/thoracic/lumbar spinous tenderness/step-off or deformity Skin: Rashes: no rashes Neuro: General: patient oriented x3, tone normal, moves all extremities, no meningeal signs, no focal motor deficits and CN's II-XI intact bilaterally Cranial nerves: Yes CN's II-XII intact bilaterally and Yes Equal, round and reactive pupils present Speech: No Abnormal speech present Extrem: General: Yes normal to inspection Course Course Course Narrative: -1630-- ED care transferred to [facility] pending CT's, Recovery consult & clinical sobriety Medications Administered Discontinued Medications Generic Name Dose Route Start Last Admin Trade Name Freq PRN Reason Stop Dose Admin Bacitracin 1 appl 10/06/23 15:47 10/06/23 16:11 Bacitracin Oint 0.9 Gm Packet TOPICAL 10/06/23 15:48 1 appl ONCE ONE Administration Protocol Medical Decision Making Medical Decision Making [facility] Narrative: 57-year-old female with past medical history ETOH abuse, TBI, depression, mood disorder, presenting to the ED via EMS for ETOH intoxication & mechanical trip and fall. On exam EtOH odor on breath, appears intoxicated, superficial abrasion noted to nasal bridge. No other evidence of trauma. No midline spinous tenderness or focal neuro deficits. Concern for ETOH abuse with fall. Rule out ICH/fractures. Lower suspicion for intrathoracic or intra-abdominal bleeding without tenderness on exam Plan: Head/C-spine/facial bone CT, Recovery consult Please refer to course for remaining clinical decision making, interpretation of labs/imaging results, and discussions with consultants and/or family members. Differential Diagnosis Differential Diagnoses: The differential diagnosis associated with the presentation includes As above Admission/Observation Consideration of admission/observation: Escalation of care including admission/observation considered Consult Healthcare Provider Management of the patient was discussed with: Behavioral Health Provider Lab Data MDM Lab Attestation statement: I reviewed the patient's lab results. Independent Interpretation I performed an independent interpretation of an: CT Scan Radiology Impression Discussion of test interpretation with radiology: I have reviewed the radiologist's reading. Independent Historian Clinical information obtained from an independent historian. History obtained from or confirmed by: EMS External Record Review External record reviewed: Inpatient record, Office record, Outpatient record, Prior outpatient labs, Prior outpatient radiology, Primary care record and Outside ED record Tests considered The following testing was considered but not selected: As above Social Determinants Patient?s care significantly limited by Social Determinants of Health including: Inadequate housing, Low income, Alcoholism and drug addiction in family, Problems related to primary support group and Unemployment Discharge Plan Discharge Clinical Impression: ETOH abuse, Fall, Abrasion Patient Disposition: Still a Patient Prescriptions: No Action acetaminophen 325 mg tablet 325 mg PO Q6-8H PRN (Reason: Pain) ibuprofen 600 mg tablet 600 mg PO TID gabapentin 600 mg tablet 600 mg PO BEDTIME venlafaxine 37.5 mg capsule,extended release 24hr 75 mg PO DAILY hydroxyzine HCl 50 mg tablet 50 mg PO Q6H PRN (Reason: anxiety) quetiapine 50 mg tablet 150 mg PO BEDTIME PRN (Reason: Insomnia) melatonin 5 mg tablet 5 mg PO BEDTIME PRN (Reason: Insomnia) Caesar DVT-PE Treat 30D Start 5 mg (74 tabs) tablets,dose pack 5 mg PO DIRECTED
[2023-10-06 16:03] VITALS: BP 116/65; BP 146/84; PULSE 108; PULSE 86; RESP 16; TEMP 36.7; O2SAT 98; O2SAT 99; BMI 31.2
[2023-10-06] MEDS: Bacitracin Oint 0.9 GM PACKET 1 APPL TOPICAL (16:11)
--- NOTE | 2023-10-06 16:13 | PC.NURSE ---
medication administered per provider order. pt waiting for CT results at this time. respirations remain even and unlabored.
[2023-10-06 18:37] VITALS: BP 113/59; PULSE 101; RESP 18; TEMP 36.6; O2SAT 95
[2023-10-07 01:54] VITALS: RESP 14
--- NOTE | 2023-10-07 01:54 | PC.NURSE ---
Pt currently sleeping at the bedside. No apparent distress noted. Breaths are even regular and unlabored with equal chest rises. Monitoring is ongoing.
--- NOTE | 2023-10-07 03:26 | PC.NURSE ---
Med req completed.
--- NOTE | 2023-10-07 05:05 | PC.NURSE ---
Pt reports painful urination. Urine sample collected and sent to the lab.
[2023-10-07 05:12] LABS: Appearance Urine Cloudy; Color Urine Dark Yellow; Glucose Urine UA Negative (Negative); Leukocyte Esterase Urine Moderate (2+) (Negative); Nitrite Urine Negative (Negative); PH 5.5 (5.0-9.0); Specific Gravity - Urine 1.025 (1.005-1.025); UMIC TRIGGER UACC YES; Urine Blood Small (1+) (Negative); Urine Ketones Trace mg/dL (Negative); Urine Protein 30 (1+) mg/dL (Neg-Trace)
[2023-10-07 05:21] LABS: Bacteria Urine None Seen (None Seen); Hyaline Casts Urine 0-2 /LPF (0-2); RBC Urine 0-2 /HPF (0-2); Squamous Epithelial Cell Urine 0-2 /HPF (0-2); UACC Culture Trigger YES; WBC Urine >50 /HPF (0-5)
--- NOTE | 2023-10-07 08:53 | PC.NURSE ---
RECOVERY TEAM (GURVINDER) AT BESIDE. PT AWARE OF PLAN OF CARE.
--- NOTE | 2023-10-07 08:54 | PC.NURSE ---
PT IS A/O X 4 NO SOB/CHIDI NOTED SPEAKS IN FULL SENTENCES. C/O 06/03 HEADACHE. CIWA - 5. /MLUbaldo AWARE. PT IS REQUESTING DETOX. WILL CONTINUE TO MONITOR.
[2023-10-07 08:58] VITALS: BP 130/58; PULSE 101; RESP 14; TEMP 36.8; O2SAT 99
--- NOTE | 2023-10-07 09:03 | MHC.RECOVRN ---
Met with pt in ER segundo bed 18 after consult placed to Addiction Medicine for AUD/Detox search. Pt had presented to the ED from home after a fall, stating she was looking for detox. Pt laying in bed, awake, alert, easily engages in conversation, has a lac with dry blood on bridge of nose. Pt reports drinking a few nips and beers daily , states [place] been on a binge the past 2 weeks I want help. Pt reports she called [facility] and went to [facility] yesterday per their request and then was denied detox because her ETOH level was too low. Pt states she wants to do bed search from home herself, she is not established with a provider in the community, agrees to come see us in office. Pt denies other questions or concerns, will present to our office as a walk in this morning to establish care. Discussed with Nehal Perry APRN.??
[2023-10-07] MEDS: Acetaminophen 325 MG TABLET 650 MG PO (10:05)
== END 2023-10-07 10:02 | disposition home or self-care (01) ==
PROVIDERS: Emergency Provider Emergency Medicine Emergency Medical Services
DX: S09.90XA Unspecified injury of head, initial encounter (principal); S00.31XA Abrasion of nose, initial encounter; M54.2 Cervicalgia; F10.129 Alcohol abuse with intoxication, unspecified; Y90.8 Blood alcohol level of 240 mg/100 ml or more; W01.10XA Fall on same level from slipping, tripping and stumbling with subsequent striking against unspecified object, initial encounter; Y93.9 Activity, unspecified; Y92.9 Unspecified place or not applicable; Y99.9 Unspecified external cause status; Z79.899 Other long term (current) drug therapy
CPT/HCPCS: 70450; 70486; 72125; 81001; 87086; 99284; 99285

== ENCOUNTER 2024-02-29 16:55 | Emergency (ER) | payer OTHER, SELFPAY ==
[2024-02-29 17:00] VITALS: BP 140/72; PULSE 104; O2SAT 96
--- NOTE | 2024-02-29 17:00 | ED_ITS ---
HPI - General Adult General Chief complaint: ETOH/Substance Use Stated complaint: ETOH Time Seen by Provider: 02/29/24 16:59 Source: patient and EMS Mode of arrival: EMS Limitations: no limitations History of Present Illness ED Provider: Ariana Espino PA-C HPI narrative: Patient is a 58 year old assigned female at with a history of alcohol abuse presenting to the emergency department today with alcohol intoxication. Patient states that she was sober a handful of months and relapsed. Patient denies any dizziness, lightheadedness, abdominal pain, nausea, vomiting, fever, chills, blurry vision, double vision, loss of vision, chest pain, difficulty breathing, shortness of breath, back pain, night sweats, pain with urination, increased urinary frequency, increased urinary urgency, blood in her urine or stool, syncope or a near syncopal episode, recent trauma or falls, bowel incontinence, bladder incontinence, or any other complaints at this time. Relieving factors: none Exacerbating factors: none Associated symptoms: denies other symptoms Treatments prior to arrival: none Related Data Home Medications ?Medication ?Instructions ?Recorded ?Confirmed hydroxyzine HCl 50 mg tablet 50 mg PO Q6H PRN anxiety 06/01/23 10/07/23 melatonin 5 mg tablet 5 mg PO BEDTIME PRN Insomnia 06/01/23 10/07/23 quetiapine 50 mg tablet 150 mg PO BEDTIME PRN Insomnia 06/01/23 10/07/23 venlafaxine 37.5 mg 75 mg PO DAILY 06/01/23 10/07/23 capsule,extended release 24 hr acetaminophen 325 mg tablet 325 mg PO Q6-8H PRN Pain 07/01/23 10/07/23 ibuprofen 600 mg tablet 600 mg PO TID 07/01/23 10/07/23 Allergies Allergy/AdvReac Type Severity Reaction Status Date / Time No Known Allergies Allergy Verified 02/29/24 17:05 [No Known Allergies*] Review of Systems 2 Constitutional: Constitutional: Reports no additional constitutional complaints, Denies chills, Denies fever(s) and Denies night sweats Eyes: Eyes: Reports no additional eye complaints, Denies blurry vision, Denies change in vision, Denies diplopia, Denies eye discharge, Denies loss of vision and Denies eye pain ENT: Denies dizziness Cardiovascular: Cardiovascular: Reports no additional cardiovascular complaints, Denies chest pain, Denies lightheadedness, Denies Loss of Consciousness and Denies dyspnea Respiratory: Respiratory: Reports no additional respiratory complaints and Denies dyspnea Gastrointestinal: Gastrointestinal: Reports no additional gastrointestinal complaints, Denies abdominal pain, Denies melena, Denies hematochezia, Denies change in bowel habits and Denies change in stool character Genitourinary: Genitourinary: Denies hematuria, Denies urinary frequency, Denies dysuria, Denies urinary incontinence, Denies urinary hesitancy and Denies urinary urgency Musculoskeletal: Musculoskeletal: Reports no additional musculoskeletal complaints, Denies numbness and Denies tingling Neurologic: Denies dizziness, Denies loss of vision, Denies numbness and Denies tingling Psychiatric: Psychiatric: Reports no additional psychiatric complaints Endocrine: Endocrine: Reports no additional endocrine complaints Hematologic/Lymphatic: Hematologic/Lymphatic: Reports no additional hematologic/lymphatic complaints Allergic/Immunologic: Allergic/Immunologic: Reports no additional allergic/immunologic complaints PMFSH Past Medical History Attestation statement: The following information was validated with the patient. Source: old records reviewed and nursing notes reviewed Medical History Numbness of left hand Bacteremia Hydroureteronephrosis Rash ETOH abuse TBI (traumatic brain injury) Mood disorder as late effect of traumatic brain injury Depression Surgical History Hx of cystoscopy Social History Social History Household Members: Unknown / Unable to assess Household Members Other:: Reports has been [employer] surfing. Housing: Apartment Alcohol intake: current Alcohol intake frequency: 3 or more drinks per day Alcohol type: beer and hard liquor Comment: Pt ambulates independently with no apparent limitations. 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 Sexual orientation: Straight/Heterosexual Physical Exam ED Vital Signs: Vital Signs - 24 hr 02/29/24 17:05 02/29/24 19:07 Temperature 98.2 F 98.8 F Pulse Rate 95 94 Respiratory Rate 18 20 Blood Pressure 138/83 128/64 Pulse Oximetry 94 94 Oxygen Delivery Method Room Air Room Air BMI result Body Mass Index 31.6 Const General: cooperative, no acute distress, alert and awake Nutritional Appearance: well nourished Orientation/consciousness: patient oriented x3 Limitations: no limitations HENMT Head: Yes normal to inspection and Yes atraumatic Ears: hearing grossly normal bilaterally and external ears normal General nose exam: Normal external nose present, no nasal discharge noted and no epistaxis Face and sinus: Yes normal facial exam, No abrasion and No laceration Mouth: Normal oral and palatal mucosa present, no drooling and no muffled voice Eyes General: appearance normal, both eyes and all related structures Periorbital: periorbital findings normal Eyelids: Yes eyelids normal Conjunctivae: conjunctivae normal Pupils: Equal, round and reactive pupils present EOM: EOMs intact bilaterally Neck Neck: Yes normal visual inspection, Yes full ROM and Yes no lymphadenopathy Chest Chest palpation & inspection: normal inspection of the chest Resp Effort & Inspection: normal respiratory effort and able to speak in complete sentences GI Inspection: Yes normal to inspection Neuro General: patient oriented x3 and moves all extremities Cranial nerves: Yes Equal, round and reactive pupils present Cognition (Neuro): normal cognition Extrem General: Yes normal to inspection, Yes full ROM and Yes capillary refill normal Psych Appearance: grossly normal Mental Status: mental status grossly normal Affect: normal affect Attitude: cooperative Thought process: Normal thought process present Thought content: Normal thought content present Insight: Good insight present (Psych) Medical Decision Making Medical Decision Making MDM Narrative: Patient is a 58 year old assigned female at with a history of alcohol use disorder presenting to the emergency department today with alcohol intoxication and requesting detox. Patient's physical exam was unremarkable. Patient's blood work showed an ethyl alcohol of 203 but was otherwise unremarkable. Patient's urine showed no acute process. I explained my physical exam findings as well as all test results to the patient. I answered all questions asked by the patient. Patient is awaiting addiction consult. Patient's disposition will be determined after addiction consult. Differential Diagnosis Differential Diagnoses: The differential diagnosis associated with the presentation includes Alcohol intoxication Alcohol abuse Admission/Observation Consideration of admission/observation: Escalation of care including admission/observation considered Patient's disposition will be determined after addiction consult. Lab Data [facility] Lab Attestation statement: I reviewed the patient's lab results. My interpretation of these results are in the [facility] Rationale portion of this note. 02/29/24 17:27 02/29/24 17:27 Labs: Lab Results 02/29/24 02/29/24 Range/Units 17:27 17:34 WBC 8.5 (4.8-10.8) X10*3/uL RBC 4.71 (4.20-5.50) X10*6/uL Hgb 14.4 (12.0-16.0) g/dl Hct 42.8 (37.0-47.0) % MCV 90.9 (80.0-98.0) fL MCH 30.6 (27.0-33.0) pg MCHC 33.6 (31.0-35.0) g/dl RDW 12.4 (11.0-16.0) % Plt Count 357 (160-400) X10*3/uL MPV 9.3 L (9.4-12.3) fL Immature Gran % (Auto) 0.6 H (0.0-0.4) % Neut % (Auto) 52.3 (45-73) % Lymph % (Auto) 39.1 (20-40) % [place] % (Auto) 6.6 (2-11) % Eos % (Auto) 0.7 (0-4) % Baso % (Auto) 0.7 (0-2) % Lymph # (Auto) 3.3 (1.2-4.9) X10*3/uL [place] # (Auto) 0.6 (0.1-1.2) X10*3/uL Eos # (Auto) 0.1 (0.0-0.4) X10*3/uL Baso # (Auto) 0.1 (0.0-0.2) X10*3/uL Abs Immat Gran (auto) 0.05 H (0.00-0.03) X10*3/uL Absolute Neuts (auto) 4.5 (2.0-8.3) x10*3/uL Absolute Nucleated RBC 0.000 (0.0-0.012) X10*3/uL Nucleated RBC % (auto) 0.0 (0.0-0.2) /100WBC Sodium 146 H (135-145) mmol/L Potassium 3.9 (3.3-5.1) mmol/L Chloride 106 (96-108) mmol/L Carbon Dioxide 23 (22-29) mmol/L Anion Gap 21 H (12-20) BUN 17 H (9-16) mg/dL Creatinine 0.88 (0.5-1.4) mg/dL Estim Creat Clear Calc 63.3 Estimated GFR > 60 Random Glucose 99 (60-115) mg/dL Calcium 9.9 (8.4-10.2) mg/dL Total Bilirubin 0.6 (0.0-1.0) mg/dL AST 19 (5-31) U/L ALT 15 (0-31) U/L Alkaline Phosphatase 74 (39-117) U/L Total Protein 8.6 H (6.5-8.0) g/dL Albumin 4.7 (3.5-5.0) g/dL Urine Color Dark Yellow Urine Appearance Clear Urine pH 5.0 (5.0-9.0) Ur Specific [place] [employer] >= 1.030 H (1.005-1.025) Urine Protein 30 (1+) H (Neg-Trace) mg/dL Urine Glucose (UA) Negative (Negative) mg/dL Urine Ketones Trace (Negative) mg/dL Urine Blood Small (1+) H (Negative) Urine Nitrite Negative (Negative) Ur Leukocyte Esterase Small (1+) H (Negative) Urine RBC 3-5 H (0-2) /HPF Urine WBC 6-10 (0-5) /HPF Ur Squamous Epith Cells 3-5 (0-2) /HPF Urine Bacteria Trace (None Seen) Hyaline Casts 11-20 (0-2) /LPF Urine Opiates Screen Not Detected (Not Detect) Ur Buprenorphine Scrn Not Detected (Not Detect) ng/mL Ur Oxycodone Screen Not Detected (Not Detect) ng/mL Urine Methadone Screen Not Detected (Not Detect) ng/mL Urine Fentanyl Screen POSITIVE H (Not Detect) Ur Barbiturates Screen Not Detected (Not Detect) Ur Phencyclidine Scrn Not Detected (Not Detect) Ur Amphetamines Screen Not Detected (Not Detect) U Benzodiazepines Scrn Not Detected (Not Detect) Urine Cocaine Screen Not Detected (Not Detect) U Marijuana (THC) Screen Not Detected (Not Detect) Ethyl Alcohol 203 mg/dL Independent Historian Clinical information obtained from an independent historian. History obtained from or confirmed by: EMS (EMS provided additional history and confirmed the history provided by the patient.) Discharge Plan Discharge Clinical Impression: ETOH abuse Patient Disposition: Still a Patient Prescriptions: No Action acetaminophen 325 mg tablet 325 mg PO Q6-8H PRN (Reason: Pain) ibuprofen 600 mg tablet 600 mg PO TID venlafaxine 37.5 mg capsule,extended release 24hr 75 mg PO DAILY hydroxyzine HCl 50 mg tablet 50 mg PO Q6H PRN (Reason: anxiety) quetiapine 50 mg tablet 150 mg PO BEDTIME PRN (Reason: Insomnia) melatonin 5 mg tablet 5 mg PO BEDTIME PRN (Reason: Insomnia) Print Language: Kinyarwanda
[2024-02-29 17:04] VITALS: BMI 31.6
[2024-02-29 17:05] VITALS: BP 138/83; PULSE 95; RESP 18; TEMP 36.8; O2SAT 94
[2024-02-29 17:39] LABS: MANUAL DIFF FLAG NO
[2024-02-29 17:47] LABS: Appearance Urine Clear; Color Urine Dark Yellow; Glucose Urine UA Negative (Negative); Leukocyte Esterase Urine Small (1+) (Negative); Nitrite Urine Negative (Negative); Specific Gravity - Urine >= 1.030 (1.005-1.025); UMIC TRIGGER UACC YES; Urine Blood Small (1+) (Negative); Urine Ketones Trace mg/dL (Negative); Urine Protein 30 (1+) mg/dL (Neg-Trace)
[2024-02-29 17:53] LABS: Amphetamine Screen Urine Not Detected (Not Detect); Barbiturates, Urine Not Detected (Not Detect); Benzodiazepines Screen Urine Not Detected (Not Detect); Buprenorphine Scr Not Detected (Not Detect); Cannabinoid Screen Urine Not Detected (Not Detect); Cocaine Screen Urine Not Detected (Not Detect); Fentanyl, urine POSITIVE (Not Detect); Methadone Screen, Urine Not Detected (Not Detect); Opiate Screen Urine Not Detected (Not Detect); Oxycodone Screen Urine Not Detected (Not Detect); Phencyclidine Screen Urine Not Detected (Not Detect)
--- NOTE | 2024-02-29 17:55 | PC.NURSE ---
pt tearful upon ED arrival. vss and up to date. kianna from [facility] in [place] - c/o etoh abuse - relapsed after 5 months - drank 5 beers and 3 nips today. requesting to stay to sober up/wants detox. denies SI/HI. noncompliant w/ meds x 3 days - hx depression/anxiety. pt changed over into hospital attire. belongings obtained/placed in the pod. belongings list created. labs/urine obtained and sent to lab. pt resting in no apparent distress. no sob/wob noted. respirations even/unlabored. plan of care ongoing. call nava placed within reach.
[2024-02-29 18:01] LABS: Bacteria Urine Trace (None Seen); UACC Culture Trigger YES
[2024-02-29 18:04] LABS: Alanine Aminotransferase 15 U/L (0-31); Albumin Level 4.7 g/dL (3.5-5.0); Alkaline Phosphatase 74 U/L (39-117); Anion Gap 21 (12-20); Aspartate Amino Transferase 19 U/L (5-31); Bilirubin Total 0.6 mg/dL (0.0-1.0); Blood Urea Nitrogen 17 mg/dL (9-16); Calcium 9.9 mg/dL (8.4-10.2); Carbon Dioxide 23 mmol/L (22-29); Chloride 106 mmol/L (96-108); Creatinine Clr Calc Pharmacy 63.3; Estimated Glomerular Filt Rate > 60; Ethanol 203 mg/dL; Glucose Random 99 mg/dL (60-115); Potassium 3.9 mmol/L (3.3-5.1); Sodium 146 mmol/L (135-145); Total Protein 8.6 g/dL (6.5-8.0)
[2024-02-29 18:07] LABS: Basophils Absolute Auto 0.1 X10*3/uL (0.0-0.2); Basophils Percent Auto 0.7 % (0-2); Eosinophils Absolute Auto 0.1 X10*3/uL (0.0-0.4); Eosinophils Percent Auto 0.7 % (0-4); Hematocrit 42.8 % (37.0-47.0); Hemoglobin 14.4 g/dl (12.0-16.0); Imm Gran Abs Auto 0.05 X10*3/uL (0.00-0.03); Imm Gran Pct Auto 0.6 % (0.0-0.4); Lymphocytes Absolute Auto 3.3 X10*3/uL (1.2-4.9); Lymphocytes Percent Auto 39.1 % (20-40); Mean Corpuscular HGB Conc 33.6 g/dl (31.0-35.0); Mean Corpuscular Hemoglobin 30.6 pg (27.0-33.0); Mean Corpuscular Volume 90.9 fL (80.0-98.0); Mean Platelet Volume 9.3 fL (9.4-12.3); Monocytes Absolute Auto 0.6 X10*3/uL (0.1-1.2); Monocytes Percent Auto 6.6 % (2-11); Neutrophils Absolute Auto 4.5 x10*3/uL (2.0-8.3); Neutrophils Percent Auto 52.3 % (45-73); Platelet Count 357 X10*3/uL (160-400); Red Blood Count 4.71 X10*6/uL (4.20-5.50); Red Cell Distribution Width 12.4 % (11.0-16.0); White Blood Count 8.5 X10*3/uL (4.8-10.8)
[2024-02-29 18:21] VITALS: PULSE 95
[2024-02-29 19:07] VITALS: BP 128/64; PULSE 94; RESP 20; TEMP 37.1; O2SAT 94
--- NOTE | 2024-03-01 00:29 | PC.NURSE ---
pt continues to sleep comfortably on stretcher, respirations even/unlabored, in no apparent distress. pt within view of nurses station, call nava within reach. plan of care ongoing.
--- NOTE | 2024-03-01 01:57 | PC.NURSE ---
pt ambulating in room with steady gait, requesting lilian bridges, offering no current complaints.
[2024-03-01 03:20] VITALS: BP 148/70; PULSE 100; RESP 16; TEMP 36.6; O2SAT 96
[2024-03-01 06:28] VITALS: BP 135/77; PULSE 97; RESP 16; TEMP 36.9; O2SAT 98
--- NOTE | 2024-03-01 07:14 | PC.NURSE ---
Pt tearful, reports she anxious about getting back to her living situation. Also reports some symptoms of alcohol withdrawal, CIWA 7. Pt denies any hx of alcohol withdrawal seizures. Reports mild headache. Anxious to meet with recovery today, plan of care ongoing.
[2024-03-01] MEDS: LORazepam 1 MG TABLET PO (08:12)
--- NOTE | 2024-03-01 09:02 | MHC.RECOVRN ---
Met with pt in ED11 after consult to CARE Team requesting ATS. Pt sitting in bed, awake, alert, easily engages in conversation. Pt reports she has been living at [facility] in [place] x 5 months. 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 Pt reports she went to lunch on Friday and had 2 mixed drinks, did not drink on Friday, and had 2 beers plus one nip yesterday. Pt reports yesterday she was outside in the heat and began to feel faint so she decided to come to the hospital. Pt reports she has been in touch with staff at [facility] throughout the weekend and was told she would be able to return on Friday. Pts UDS positive for fentanyl, pt denies using any substances. Pt concerned regarding this result, requesting another UDS. Pt is not interested in ATS at this time nor does pt meet criteria for ATS admission. Plan to repeat UDS and finalize return to [facility]. Discussed with pts RN.
[2024-03-01 10:07] LABS: Amphetamine Screen Urine Not Detected (Not Detect); Barbiturates, Urine Not Detected (Not Detect); Benzodiazepines Screen Urine Not Detected (Not Detect); Buprenorphine Scr Not Detected (Not Detect); Cannabinoid Screen Urine Not Detected (Not Detect); Cocaine Screen Urine Not Detected (Not Detect); Fentanyl, urine Not Detected (Not Detect); Methadone Screen, Urine Not Detected (Not Detect); Opiate Screen Urine Not Detected (Not Detect); Oxycodone Screen Urine Not Detected (Not Detect); Phencyclidine Screen Urine Not Detected (Not Detect)
--- NOTE | 2024-03-01 10:43 | MHC.RECOVRN ---
Met with pt to inform her repeat UDS negative for fentanyl. Pt reports she has spoken to staff at [facility] and they will pick her up to return to facility. Pt denies other questions or concerns. RN aware.
[2024-03-01 11:49] VITALS: BP 149/84; PULSE 90; RESP 18; TEMP 36.6; O2SAT 98
[2024-03-01 11:50] VITALS: BP 149/84; PULSE 90; RESP 18; TEMP 36.6; O2SAT 98
== END 2024-03-01 11:54 | disposition other institution (70) ==
PROVIDERS: Physician Assistant Medical; Emergency Provider Emergency Medicine Emergency Medical Services
DX: F10.129 Alcohol abuse with intoxication, unspecified (principal); Y90.7 Blood alcohol level of 200-239 mg/100 ml; N39.0 Urinary tract infection, site not specified; B96.29 Other Escherichia coli [E. coli] as the cause of diseases classified elsewhere; Z16.11 Resistance to penicillins
CPT/HCPCS: 36415; 80053; 80307; 81001; 85025; 87086; 87088; 87186; 99285

== ENCOUNTER 2024-04-17 10:57 | Emergency (ER) | payer OTHER, SELFPAY ==
[2024-04-17 11:02] VITALS: BP 175/74; PULSE 99; RESP 20; TEMP 36.3; O2SAT 98; BMI 32.5
--- NOTE | 2024-04-17 11:24 | ED.GENADULT ---
HPI - General Adult General Chief complaint: General Medical Stated complaint: medical clearance Time Seen by Provider: 04/17/24 11:07 Source: patient Mode of arrival: ambulatory Limitations: no limitations History of Present Illness ED Provider: JOSE A BAIN narrative: 58 yo female with PMH of ETOH abuse who has been doing well went out with her son last night and stayed out she went back to the sober house and they want med clearance. She denies any complaints and agrees to urine and labs, she denies drug use. complaint: med clearance Onset (ago): day(s) (1) Severity: mild Relieving factors: none Exacerbating factors: none Associated symptoms: denies other symptoms Treatments prior to arrival: none Related Data Home Medications ?Medication ?Instructions ?Recorded ?Confirmed hydroxyzine HCl 50 mg tablet 50 mg PO Q6H PRN anxiety 06/01/23 10/07/23 melatonin 5 mg tablet 5 mg PO BEDTIME PRN Insomnia 06/01/23 10/07/23 quetiapine 50 mg tablet 150 mg PO BEDTIME PRN Insomnia 06/01/23 10/07/23 venlafaxine 37.5 mg 75 mg PO DAILY 06/01/23 10/07/23 capsule,extended release 24 hr acetaminophen 325 mg tablet 325 mg PO Q6-8H PRN Pain 07/01/23 10/07/23 ibuprofen 600 mg tablet 600 mg PO TID 07/01/23 10/07/23 Previous Rx's ?Medication ?Instructions ?Recorded sulfamethoxazole 800 1 tab PO BID 3 days #6 tabs 03/04/24 mg-trimethoprim 160 mg tablet (Bactrim DS) Allergies Allergy/AdvReac Type Severity Reaction Status Date / Time No Known Allergies Allergy Verified 04/17/24 11:06 [No Known Allergies*] Review of Systems Review of Systems: Constitutional : No Fever, No Chills, No Fatigue ENT/Mouth : No sore throat, No Rhinorrhea Eyes: No Eye Pain, No Swelling, No Redness Cardiovascular : No Chest Pain, No SOB, No Dyspnea on Exertion Respiratory : No Cough, No Sputum Gastrointestinal : No Nausea, No Vomiting, No Diarrhea, No abdominal Pain Genitourinary : No Dysuria, No Urinary Frequency, No Hematuria, Musculoskeletal : No joint pain, No Myalgias, No Joint Swelling Skin : No Skin Lesions, No rash Neuro : No Weakness, No Numbness, No Dizziness, no Headache Psych : No Anxiety/Panic, No Depression All other systems reviewed and are negative [facility] Past Medical History Attestation statement: The following information was validated with the patient. Source: old records reviewed Medical History Numbness of left hand Bacteremia Hydroureteronephrosis Rash ETOH abuse TBI (traumatic brain injury) Mood disorder as late effect of traumatic brain injury Depression Surgical History Hx of cystoscopy Social History Social History Household Members: Unknown / Unable to assess Household Members Other:: Reports has been [employer] surfing. Housing: Apartment Alcohol intake: current Alcohol intake frequency: 3 or more drinks per day Alcohol type: beer and hard liquor Comment: Pt ambulates independently with no apparent limitations. 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 Oriented X3. No acute distress. Eyes: Pupils equal, round and reactive to light. ENT: Pharynx normal. Neck: Normal inspection. Neck supple. CVS: Normal heart rate and rhythm. Pulses normal. Respiratory: No respiratory distress. Breath sounds normal. Abdomen: Soft and nontender. Skin: Skin warm and dry. Normal skin color. Normal skin turgor. Extremities: No lower extremity edema. No calf ttp Neuro: Oriented X 3. No motor deficit. No sensory deficit. Medical Decision Making Medical Decision Making MDM Narrative: 58 yo female with PMH of ETOH abuse here for med clearance after going out - sober house requesting tox testing. She denies use and has no complaints, no signs of trauma, no psych complaints - ETOH and drug screen ordered. Differential Diagnosis Differential Diagnoses: The differential diagnosis associated with the presentation includes med clearance, substance abuse Lab Data MDM Lab Attestation statement: I reviewed the patient's lab results. Labs: Lab Results 04/17/24 Range/Units 11:20 Urine Opiates Screen Not Detected (Not Detect) Ur Buprenorphine Scrn Not Detected (Not Detect) ng/mL Ur Oxycodone Screen Not Detected (Not Detect) ng/mL Urine Methadone Screen Not Detected (Not Detect) ng/mL Urine Fentanyl Screen Not Detected (Not Detect) Ur Barbiturates Screen Not Detected (Not Detect) Ur Phencyclidine Scrn Not Detected (Not Detect) Ur Amphetamines Screen Not Detected (Not Detect) U Benzodiazepines Scrn Not Detected (Not Detect) Urine Cocaine Screen Not Detected (Not Detect) U Marijuana (THC) Screen Not Detected (Not Detect) Ethyl Alcohol < 10 mg/dL External Record Review External record reviewed: Inpatient record Discharge Plan Discharge Clinical Impression: Normal exam Patient Disposition: Home, Self-Care Instructions: Normal Exam (ED) Additional Instructions: drug screen and blood alcohol level negative in ER today medically cleared return for any worsening symptoms or concerns. Prescriptions: No Action acetaminophen 325 mg tablet 325 mg PO Q6-8H PRN (Reason: Pain) ibuprofen 600 mg tablet 600 mg PO TID venlafaxine 37.5 mg capsule,extended release 24hr 75 mg PO DAILY hydroxyzine HCl 50 mg tablet 50 mg PO Q6H PRN (Reason: anxiety) quetiapine 50 mg tablet 150 mg PO BEDTIME PRN (Reason: Insomnia) melatonin 5 mg tablet 5 mg PO BEDTIME PRN (Reason: Insomnia) sulfamethoxazole-trimethoprim [Bactrim DS] 800-160 mg tablet 1 tab PO BID 3 Days Qty: 6 0RF Print Language: Kyrgyz
[2024-04-17 11:42] LABS: Amphetamine Screen Urine Not Detected (Not Detect); Barbiturates, Urine Not Detected (Not Detect); Benzodiazepines Screen Urine Not Detected (Not Detect); Buprenorphine Scr Not Detected (Not Detect); Cannabinoid Screen Urine Not Detected (Not Detect); Cocaine Screen Urine Not Detected (Not Detect); Fentanyl, urine Not Detected (Not Detect); Methadone Screen, Urine Not Detected (Not Detect); Opiate Screen Urine Not Detected (Not Detect); Oxycodone Screen Urine Not Detected (Not Detect); Phencyclidine Screen Urine Not Detected (Not Detect)
[2024-04-17 11:45] LABS: Ethanol < 10 mg/dL
[2024-04-17 11:51] VITALS: BP 175/74; PULSE 99; RESP 20; TEMP 36.3; O2SAT 98
== END 2024-04-17 11:58 | disposition home or self-care (01) ==
LOC: HO.ED 11:51
PROVIDERS: Emergency Provider Emergency Medicine; PCP Hospitalist
DX: Z02.2 Encounter for examination for admission to residential institution (principal); F10.10 Alcohol abuse, uncomplicated; Y90.0 Blood alcohol level of less than 20 mg/100 ml
CPT/HCPCS: 36415; 80307; 99282

== ENCOUNTER 2024-05-09 16:00 | Emergency (ER) | payer OTHER, SELFPAY ==
[2024-05-09 16:03] VITALS: BP 124/60
--- NOTE | 2024-05-09 16:17 | ED.GENADULT ---
HPI - General Adult General Chief complaint: Medical Clearance Stated complaint: medical clearance Time Seen by Provider: 05/09/24 16:27 Source: patient Mode of arrival: ambulatory Limitations: no limitations History of Present Illness HPI narrative: Patient is a 58-year-old female She is at a sober living house; [facility] She requires medical clearance for return as she was out on a past today, visit of the local fare. Admits to alcohol consumption earlier today, denies drug usage. Needs drug screening and alcohol level obtained before she can return. Offers no physical complaints Related Data Home Medications ?Medication ?Instructions ?Recorded ?Confirmed hydroxyzine HCl 50 mg tablet 50 mg PO Q6H PRN anxiety 06/01/23 10/07/23 melatonin 5 mg tablet 5 mg PO BEDTIME PRN Insomnia 06/01/23 10/07/23 quetiapine 50 mg tablet 150 mg PO BEDTIME PRN Insomnia 06/01/23 10/07/23 venlafaxine 37.5 mg 75 mg PO DAILY 06/01/23 10/07/23 capsule,extended release 24 hr acetaminophen 325 mg tablet 325 mg PO Q6-8H PRN Pain 07/01/23 10/07/23 ibuprofen 600 mg tablet 600 mg PO TID 07/01/23 10/07/23 Previous Rx's ?Medication ?Instructions ?Recorded sulfamethoxazole 800 1 tab PO BID 3 days #6 tabs 03/04/24 mg-trimethoprim 160 mg tablet (Bactrim DS) Allergies Allergy/AdvReac Type Severity Reaction Status Date / Time No Known Allergies Allergy Verified 05/09/24 16:21 [No Known Allergies*] Review of Systems Review of Systems: Yes all other systems are reviewed and are negative PMFSH Past Medical History Attestation statement: The following information was validated with the patient. Source: old records reviewed Medical History Numbness of left hand Bacteremia Hydroureteronephrosis Rash ETOH abuse TBI (traumatic brain injury) Mood disorder as late effect of traumatic brain injury Depression Surgical History Hx of cystoscopy Social History Social History Household Members: Unknown / Unable to assess Household Members Other:: Reports has been [employer] surfing. Housing: Apartment Alcohol intake: current Alcohol intake frequency: 3 or more drinks per day Alcohol type: beer and hard liquor Comment: Pt ambulates independently with no apparent limitations. 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 No acute distress.?Normal affect. Eyes: Pupils equal, round and reactive to light.? ENT: Pharynx normal.?? Neck: Normal inspection.? Neck supple.?? CVS: Heart sounds normal. Normal heart rate and rhythm.? Pulses normal.?? Respiratory: No respiratory distress.? Lung sounds clear to auscultation bilaterally?? Abdomen: Soft and non-tender. Normoactive bowel sounds. Skin: Skin warm and dry.? Normal skin color.? Extremities: No lower extremity edema.? Neuro: Moves all extremities spontaneously. Sensation intact bilaterally. CN II-XII intact. No focal neuro deficits. Ambulates with normal steady gait. Course Reevaluation(s) Reevaluation #1: Patient called back to triage on 2 occasions to try and obtain drug abuse screen to provide her medical clearance. No answer. Initial evaluation she was ambulatory with a steady gait, conscious alert and oriented x3. No neurological deficits. Time: 18:42 Medical Decision Making Medical Decision Making [facility] Narrative: Patient is a 58-year-old female past medical history of alcohol use disorder, TBI, depression, presenting for medical clearance to return to her sober living house. She is requesting toxicology testing as per [facility]. She offers no physical complaints, no signs of trauma, examination is benign. Ethanol level urine drug of abuse screen ordered Differential Diagnosis Differential Diagnoses: The differential diagnosis associated with the presentation includes (Med clearance, substance abuse) Lab Data [facility] Lab Attestation statement: I reviewed the patient's lab results. Labs: Lab Results 05/09/24 Range/Units 16:35 Ethyl Alcohol 184 mg/dL Independent Historian Clinical information obtained from an independent historian. History obtained from or confirmed by: EMS External Record Review External record reviewed: Inpatient record and Outpatient record Discharge Plan Discharge Clinical Impression: Normal exam Patient Disposition: Home, Self-Care Instructions: Normal Exam (ED) Prescriptions: No Action acetaminophen 325 mg tablet 325 mg PO Q6-8H PRN (Reason: Pain) ibuprofen 600 mg tablet 600 mg PO TID venlafaxine 37.5 mg capsule,extended release 24hr 75 mg PO DAILY hydroxyzine HCl 50 mg tablet 50 mg PO Q6H PRN (Reason: anxiety) quetiapine 50 mg tablet 150 mg PO BEDTIME PRN (Reason: Insomnia) melatonin 5 mg tablet 5 mg PO BEDTIME PRN (Reason: Insomnia) sulfamethoxazole-trimethoprim [Bactrim DS] 800-160 mg tablet 1 tab PO BID 3 Days Qty: 6 0RF Print Language: Lithuanian
[2024-05-09 16:18] VITALS: BP 129/83; PULSE 91; RESP 18; TEMP 37.1; O2SAT 99; BMI 32.1
[2024-05-09 16:51] LABS: Ethanol 184 mg/dL
--- NOTE | 2024-05-09 20:18 | PC.NURSE ---
no answer in waiting room multiple times
== END 2024-05-09 20:18 | disposition home or self-care (01) ==
LOC: HO.ED 20:07
PROVIDERS: Nurse Practitioner Family; Emergency Provider Emergency Medicine Emergency Medical Services
DX: F10.129 Alcohol abuse with intoxication, unspecified (principal); Y90.6 Blood alcohol level of 120-199 mg/100 ml; Z79.899 Other long term (current) drug therapy; Z71.41 Alcohol abuse counseling and surveillance of alcoholic
CPT/HCPCS: 36415; 80307; 99281; 99283

== ENCOUNTER 2024-05-11 13:36 | Emergency (ER) | payer OTHER, SELFPAY ==
[2024-05-11 14:28] VITALS: BP 120/63; PULSE 87; RESP 18; TEMP 36.4; O2SAT 95; BMI 30.8
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
[2024-05-11 14:32] VITALS: TEMP 36.4
[2024-05-11 15:04] LABS: MANUAL DIFF FLAG NO
[2024-05-11 15:07] LABS: Appearance Urine Clear; Color Urine Yellow; Glucose Urine UA Negative (Negative); Leukocyte Esterase Urine Trace (Negative); Nitrite Urine Negative (Negative); UMIC TRIGGER UACC YES; Urine Blood Negative (Negative); Urine Ketones Negative (Negative); Urine Protein Negative (Neg-Trace)
[2024-05-11 15:09] LABS: Basophils Percent Auto 0.5 % (0-2); Eosinophils Percent Auto 0.5 % (0-4); Hematocrit 39.7 % (37.0-47.0); Hemoglobin 13.5 g/dl (12.0-16.0); Imm Gran Abs Auto 0.01 X10*3/uL (0.00-0.03); Imm Gran Pct Auto 0.1 % (0.0-0.4); Lymphocytes Absolute Auto 3.3 X10*3/uL (1.2-4.9); Lymphocytes Percent Auto 41.3 % (20-40); Mean Corpuscular Hemoglobin 30.6 pg (27.0-33.0); Mean Platelet Volume 9.1 fL (9.4-12.3); Monocytes Absolute Auto 0.5 X10*3/uL (0.1-1.2); Monocytes Percent Auto 6.3 % (2-11); Neutrophils Absolute Auto 4.1 x10*3/uL (2.0-8.3); Neutrophils Percent Auto 51.3 % (45-73); Platelet Count 337 X10*3/uL (160-400); Red Blood Count 4.41 X10*6/uL (4.20-5.50); Red Cell Distribution Width 12.5 % (11.0-16.0)
[2024-05-11 15:11] LABS: Bacteria Urine 1+ (None Seen); Hyaline Casts Urine 0-2 /LPF (0-2); RBC Urine 0-2 /HPF (0-2); Squamous Epithelial Cell Urine 0-2 /HPF (0-2); UACC Culture Trigger YES
[2024-05-11 15:32] LABS: Ethanol 210 mg/dL
[2024-05-11 15:35] LABS: Alanine Aminotransferase 21 U/L (0-31); Albumin Level 4.7 g/dL (3.5-5.0); Alkaline Phosphatase 70 U/L (39-117); Anion Gap 16 (12-20); Aspartate Amino Transferase 21 U/L (5-31); Bilirubin Direct 0.2 mg/dL (0.0-0.5); Bilirubin Total 0.5 mg/dL (0.0-1.0); Blood Urea Nitrogen 12 mg/dL (9-16); Calcium 10.2 mg/dL (8.4-10.2); Carbon Dioxide 23 mmol/L (22-29); Chloride 107 mmol/L (96-108); Creatinine Clr Calc Pharmacy 68.8; Estimated Glomerular Filt Rate > 60; Glucose Random 89 mg/dL (60-115); Magnesium 2.1 mg/dL (1.6-2.6); Potassium 3.7 mmol/L (3.3-5.1); Sodium 142 mmol/L (135-145); Total Protein 8.2 g/dL (6.5-8.0)
[2024-05-11 16:50] LABS: Amphetamine Screen Urine Not Detected (Not Detect); Barbiturates, Urine Not Detected (Not Detect); Benzodiazepines Screen Urine Not Detected (Not Detect); Buprenorphine Scr Not Detected (Not Detect); Cannabinoid Screen Urine Not Detected (Not Detect); Cocaine Screen Urine Not Detected (Not Detect); Fentanyl, urine Not Detected (Not Detect); Methadone Screen, Urine Not Detected (Not Detect); Opiate Screen Urine Not Detected (Not Detect); Oxycodone Screen Urine Not Detected (Not Detect); Phencyclidine Screen Urine Not Detected (Not Detect)
[2024-05-11 17:06] VITALS: BP 126/77; PULSE 98; RESP 16; TEMP 36.6; O2SAT 98
[2024-05-11 17:12] VITALS: BP 126/77; PULSE 98; RESP 16; TEMP 36.6; O2SAT 98
== END 2024-05-11 17:13 | disposition home or self-care (01) ==
PROVIDERS: Physician Assistant; Emergency Provider Emergency Medicine; PCP Hospitalist
DX: N39.0 Urinary tract infection, site not specified (principal); F10.129 Alcohol abuse with intoxication, unspecified; Z51.81 Encounter for therapeutic drug level monitoring; Z79.899 Other long term (current) drug therapy
CPT/HCPCS: 36415; 80048; 80076; 80307; 81001; 83735; 85025; 87086; 87088; 87186; 99283

== ENCOUNTER 2024-05-17 15:41 | Emergency (ER) | payer OTHER, SELFPAY ==
[2024-05-17 16:06] VITALS: BP 126/83; PULSE 94; RESP 18; TEMP 37; O2SAT 96; BMI 32.1
--- NOTE | 2024-05-17 16:09 | ED_ITS ---
HPI - General Adult General Chief complaint: Medical Clearance Stated complaint: medical clearance Time Seen by Provider: 05/17/24 17:14 Source: patient and old records reviewed Mode of arrival: ambulatory Limitations: no limitations History of Present Illness ED Provider: JOSE A BAIN narrative: 58 yo female with PMH of ETOH abuse wants to go back to [facility] here asking for detox labs clearance, denies any SI or trauma. She admits to drinking today. She has done this before. She has no complaints. She is alert and oriented x 3 with a steady gait. We know her well and she has presented like this in the past many times. complaint: detox clearance Onset (ago): day(s) (1) Radiation: non-radiation Severity: mild Relieving factors: none Exacerbating factors: other (ETOH use) Associated symptoms: denies other symptoms Treatments prior to arrival: none Related Data Home Medications ?Medication ?Instructions ?Recorded ?Confirmed hydroxyzine HCl 50 mg tablet 50 mg PO Q6H PRN anxiety 06/01/23 10/07/23 melatonin 5 mg tablet 5 mg PO BEDTIME PRN Insomnia 06/01/23 10/07/23 quetiapine 50 mg tablet 150 mg PO BEDTIME PRN Insomnia 06/01/23 10/07/23 venlafaxine 37.5 mg 75 mg PO DAILY 06/01/23 10/07/23 capsule,extended release 24 hr acetaminophen 325 mg tablet 325 mg PO Q6-8H PRN Pain 07/01/23 10/07/23 ibuprofen 600 mg tablet 600 mg PO TID 07/01/23 10/07/23 Previous Rx's ?Medication ?Instructions ?Recorded sulfamethoxazole 800 1 tab PO BID 3 days #6 tabs 03/04/24 mg-trimethoprim 160 mg tablet (Bactrim DS) cefuroxime axetil 250 mg tablet 250 mg PO BID 7 days #14 tabs 05/11/24 Allergies Allergy/AdvReac Type Severity Reaction Status Date / Time No Known Allergies Allergy Verified 05/17/24 16:08 [No Known Allergies*] Review of Systems 2 Review of Systems: Constitutional : No Fever, No Chills ENT/Mouth : No Ear Pain, No Nasal Congestion, No sore throat Eyes: No Eye Pain, No Swelling, No Redness Cardiovascular : No Chest Pain, No SOB Respiratory : No Cough, No Sputum, No Dyspnea Gastrointestinal : No Nausea, No Vomiting, No Diarrhea, No Hematochezia, No Melena Genitourinary : No Dysuria, No Urinary Frequency, No Hematuria Musculoskeletal : No Myalgias Skin : No Skin Lesions, No rash Neuro : No Weakness, No Numbness, No Paresthesias, No Dizziness, No Headache Psych : no Anxiety, no Depression, no SI/HI All other systems reviewed and are negative [facility] Past Medical History Attestation statement: The following information was validated with the patient. Source: old records reviewed Medical History Numbness of left hand Bacteremia Hydroureteronephrosis Rash ETOH abuse TBI (traumatic brain injury) Mood disorder as late effect of traumatic brain injury Depression Surgical History Hx of cystoscopy Social History Social History Household Members: Unknown / Unable to assess Household Members Other:: Reports has been [employer]. Housing: Apartment Alcohol intake: current Alcohol intake frequency: 3 or more drinks per day Alcohol type: beer and hard liquor Comment: Pt ambulates independently with no apparent limitations. 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 Oriented X3. No acute distress. Eyes: Pupils equal, round and reactive to light. ENT: Pharynx normal. Neck: Normal inspection. Neck supple. CVS: Normal heart rate and rhythm. Pulses normal. Respiratory: No respiratory distress. Breath sounds normal. Abdomen: Soft and non-tender. Skin: Skin warm and dry. Normal skin color. Normal skin turgor. Extremities: No lower extremity edema. No calf ttp Neuro: Oriented X 3. No motor deficit. No sensory deficit. steady gait, clinically sober Course Course Course Narrative: RME performed by Ariana Espino PA-C. Patient is a 58 year old assigned female at presenting to the emergency department for medical clearance. Patient states she needs medical clearance to return to her treatment program. Detailed physical exam and review of systems are deferred to the contracts manager. Labs ordered. Patient placed back in the waiting room pending room availability and results. Medical Decision Making Medical Decision Making [facility] Narrative: 58 yo female with PMH of ETOH here with c/o wanting to go back to [facility] and notes that she did drink and now needs clearance labs, she denies medical complaints, trauma, SI. Labs ordered has her own outpatient plan Differential Diagnosis Differential Diagnoses: The differential diagnosis associated with the presentation includes ETOH use disorder Admission/Observation Consideration of admission/observation: Escalation of care including admission/observation considered steady gait, clinically sober, has plans to go to [facility] - can be released. No SI Lab Data [facility] Lab Attestation statement: I reviewed the patient's lab results. 05/17/24 16:42 05/17/24 16:42 Labs: Lab Results 05/17/24 Range/Units 16:42 WBC 6.6 (4.8-10.8) X10*3/uL RBC 3.92 L (4.20-5.50) X10*6/uL Hgb 11.8 L (12.0-16.0) g/dl Hct 36.1 L (37.0-47.0) % MCV 92.1 (80.0-98.0) fL MCH 30.1 (27.0-33.0) pg MCHC 32.7 (31.0-35.0) g/dl RDW 12.8 (11.0-16.0) % Plt Count 286 (160-400) X10*3/uL MPV 9.3 L (9.4-12.3) fL Immature Gran % (Auto) 0.2 (0.0-0.4) % Neut % (Auto) 35.6 L (45-73) % Lymph % (Auto) 54.4 H (20-40) % [place] % (Auto) 7.1 (2-11) % Eos % (Auto) 2.1 (0-4) % Baso % (Auto) 0.6 (0-2) % Lymph # (Auto) 3.6 (1.2-4.9) X10*3/uL [place] # (Auto) 0.5 (0.1-1.2) X10*3/uL Eos # (Auto) 0.1 (0.0-0.4) X10*3/uL Baso # (Auto) 0.0 (0.0-0.2) X10*3/uL Abs Immat Gran (auto) 0.01 (0.00-0.03) X10*3/uL Absolute Neuts (auto) 2.3 (2.0-8.3) x10*3/uL Absolute Nucleated RBC 0.000 (0.0-0.012) X10*3/uL Nucleated RBC % (auto) 0.0 (0.0-0.2) /100WBC Sodium 147 H (135-145) mmol/L Potassium 3.4 (3.3-5.1) mmol/L Chloride 112 H (96-108) mmol/L Carbon Dioxide 23 (22-29) mmol/L Anion Gap 15 (12-20) BUN 19 H (9-16) mg/dL Creatinine 0.89 (0.5-1.4) mg/dL Estim Creat Clear Calc 63.2 Estimated GFR > 60 Random Glucose 111 (60-115) mg/dL Calcium 9.5 D (8.4-10.2) mg/dL Magnesium 1.7 (1.6-2.6) mg/dL Total Bilirubin 0.2 (0.0-1.0) mg/dL AST 14 (5-31) U/L ALT 13 (0-31) U/L Alkaline Phosphatase 57 (39-117) U/L Total Protein 7.5 (6.5-8.0) g/dL Albumin 4.1 (3.5-5.0) g/dL Urine Color Yellow Urine Appearance Clear Urine pH 5.5 (5.0-9.0) Ur Specific [place] 1.020 (1.005-1.025) Urine Protein Negative (Neg-Trace) mg/dL Urine Glucose (UA) Negative (Negative) mg/dL Urine Ketones Trace (Negative) mg/dL Urine Blood Negative (Negative) Urine Nitrite Negative (Negative) Ur Leukocyte Esterase Trace H (Negative) Urine Opiates Screen Not Detected (Not Detect) Ur Buprenorphine Scrn Not Detected (Not Detect) ng/mL Ur Oxycodone Screen Not Detected (Not Detect) ng/mL Urine Methadone Screen Not Detected (Not Detect) ng/mL Urine Fentanyl Screen Not Detected (Not Detect) Ur Barbiturates Screen Not Detected (Not Detect) Ur Phencyclidine Scrn Not Detected (Not Detect) Ur Amphetamines Screen Not Detected (Not Detect) U Benzodiazepines Scrn Not Detected (Not Detect) Urine Cocaine Screen Not Detected (Not Detect) U Marijuana (THC) Screen Not Detected (Not Detect) Ethyl Alcohol 250 mg/dL External Record Review External record reviewed: Inpatient record Discharge Plan Discharge Clinical Impression: ETOH abuse, Dehydration, mild Patient Disposition: Home, Self-Care Instructions: Abuse of Alcohol (ED), Dehydration (ED) Additional Instructions: return for worsening symptoms or concerns mild dehydration and anemia - can recheck labs in a week drug screen negative ETOH level 250 Prescriptions: No Action acetaminophen 325 mg tablet 325 mg PO Q6-8H PRN (Reason: Pain) ibuprofen 600 mg tablet 600 mg PO TID venlafaxine 37.5 mg capsule,extended release 24hr 75 mg PO DAILY hydroxyzine HCl 50 mg tablet 50 mg PO Q6H PRN (Reason: anxiety) quetiapine 50 mg tablet 150 mg PO BEDTIME PRN (Reason: Insomnia) melatonin 5 mg tablet 5 mg PO BEDTIME PRN (Reason: Insomnia) sulfamethoxazole-trimethoprim [Bactrim DS] 800-160 mg tablet 1 tab PO BID 3 Days Qty: 6 0RF cefuroxime axetil 250 mg tablet 250 mg PO BID 7 Days Qty: 14 0RF Print Language: Azeri
[2024-05-17 16:51] LABS: MANUAL DIFF FLAG NO
[2024-05-17 16:53] LABS: Basophils Percent Auto 0.6 % (0-2); Eosinophils Absolute Auto 0.1 X10*3/uL (0.0-0.4); Eosinophils Percent Auto 2.1 % (0-4); Hematocrit 36.1 % (37.0-47.0); Hemoglobin 11.8 g/dl (12.0-16.0); Imm Gran Abs Auto 0.01 X10*3/uL (0.00-0.03); Imm Gran Pct Auto 0.2 % (0.0-0.4); Lymphocytes Absolute Auto 3.6 X10*3/uL (1.2-4.9); Lymphocytes Percent Auto 54.4 % (20-40); Mean Corpuscular HGB Conc 32.7 g/dl (31.0-35.0); Mean Corpuscular Hemoglobin 30.1 pg (27.0-33.0); Mean Corpuscular Volume 92.1 fL (80.0-98.0); Mean Platelet Volume 9.3 fL (9.4-12.3); Monocytes Absolute Auto 0.5 X10*3/uL (0.1-1.2); Monocytes Percent Auto 7.1 % (2-11); Neutrophils Absolute Auto 2.3 x10*3/uL (2.0-8.3); Neutrophils Percent Auto 35.6 % (45-73); Platelet Count 286 X10*3/uL (160-400); Red Blood Count 3.92 X10*6/uL (4.20-5.50); Red Cell Distribution Width 12.8 % (11.0-16.0); White Blood Count 6.6 X10*3/uL (4.8-10.8)
[2024-05-17 16:54] LABS: Appearance Urine Clear; Color Urine Yellow; Glucose Urine UA Negative (Negative); Leukocyte Esterase Urine Trace (Negative); Nitrite Urine Negative (Negative); PH 5.5 (5.0-9.0); UMIC TRIGGER UACC YES; Urine Blood Negative (Negative); Urine Ketones Trace mg/dL (Negative); Urine Protein Negative (Neg-Trace)
[2024-05-17 17:03] LABS: Amphetamine Screen Urine Not Detected (Not Detect); Barbiturates, Urine Not Detected (Not Detect); Benzodiazepines Screen Urine Not Detected (Not Detect); Buprenorphine Scr Not Detected (Not Detect); Cannabinoid Screen Urine Not Detected (Not Detect); Cocaine Screen Urine Not Detected (Not Detect); Fentanyl, urine Not Detected (Not Detect); Methadone Screen, Urine Not Detected (Not Detect); Opiate Screen Urine Not Detected (Not Detect); Oxycodone Screen Urine Not Detected (Not Detect); Phencyclidine Screen Urine Not Detected (Not Detect)
[2024-05-17 17:12] LABS: Alanine Aminotransferase 13 U/L (0-31); Albumin Level 4.1 g/dL (3.5-5.0); Alkaline Phosphatase 57 U/L (39-117); Anion Gap 15 (12-20); Aspartate Amino Transferase 14 U/L (5-31); Bilirubin Total 0.2 mg/dL (0.0-1.0); Blood Urea Nitrogen 19 mg/dL (9-16); Calcium 9.5 mg/dL (8.4-10.2); Carbon Dioxide 23 mmol/L (22-29); Chloride 112 mmol/L (96-108); Creatinine Clr Calc Pharmacy 63.2; Estimated Glomerular Filt Rate > 60; Ethanol 250 mg/dL; Glucose Random 111 mg/dL (60-115); Magnesium 1.7 mg/dL (1.6-2.6); Potassium 3.4 mmol/L (3.3-5.1); Sodium 147 mmol/L (135-145); Total Protein 7.5 g/dL (6.5-8.0)
--- NOTE | 2024-05-17 17:19 | PC.NURSE ---
PT WAS SEEN BY DR NARANJO AND RESULTS WERE REVIEWED. SHE HAS A STEADY GAIT AND SPEECH IS CLEAR. PLAN IS FOR DISCHARGE WITH MED CLEARANCE
[2024-05-17 17:34] VITALS: BP 126/83; PULSE 94; RESP 18; TEMP 37; O2SAT 96
[2024-05-17 18:24] LABS: Bacteria Urine None Seen (None Seen); Hyaline Casts Urine 0-2 /LPF (0-2); RBC Urine 0-2 /HPF (0-2); Squamous Epithelial Cell Urine 0-2 /HPF (0-2); UACC Culture Trigger YES
== END 2024-05-17 17:36 | disposition home or self-care (01) ==
PROVIDERS: Physician Assistant Medical; Emergency Provider Emergency Medicine
DX: Z02.79 Encounter for issue of other medical certificate (principal); F10.10 Alcohol abuse, uncomplicated; E86.0 Dehydration
CPT/HCPCS: 36415; 80053; 80307; 81001; 83735; 85025; 87086; 87088; 87186; 99282; 99283

== ENCOUNTER 2024-05-17 20:36 | Emergency (ER) | payer OTHER, SELFPAY ==
--- NOTE | 2024-05-17 20:45 | ED.ALCOHOL ---
HPI - Alcohol General Chief Complaint: ETOH/Substance Use Stated Complaint: ETOH requesting detox Time Seen by Provider: 05/17/24 20:38 Source: patient, EMS and old records reviewed Mode of arrival: EMS Limitations: no limitations History of Present Illness ED Provider: JOSE A BAIN narrative: 58 yo female with PMH of ETOH abuse - here again as she was discharged to the [facility] as she had planned earlier but notes no one came and got her. I suspect because she had been drinking. She has no new complaints just wants to go back to the [facility]. complaint: alcohol intoxication Last drink: Hours (ago) Chronic alcohol use: Yes Previous visits for alcohol intoxication: Yes Recent trauma: No Associated symptoms: denies other symptoms Treatments prior to arrival: none Related Data Home Medications ?Medication ?Instructions ?Recorded ?Confirmed hydroxyzine HCl 50 mg tablet 50 mg PO Q6H PRN anxiety 06/01/23 10/07/23 melatonin 5 mg tablet 5 mg PO BEDTIME PRN Insomnia 06/01/23 10/07/23 quetiapine 50 mg tablet 150 mg PO BEDTIME PRN Insomnia 06/01/23 10/07/23 venlafaxine 37.5 mg 75 mg PO DAILY 06/01/23 10/07/23 capsule,extended release 24 hr acetaminophen 325 mg tablet 325 mg PO Q6-8H PRN Pain 07/01/23 10/07/23 ibuprofen 600 mg tablet 600 mg PO TID 07/01/23 10/07/23 Previous Rx's ?Medication ?Instructions ?Recorded sulfamethoxazole 800 1 tab PO BID 3 days #6 tabs 03/04/24 mg-trimethoprim 160 mg tablet (Bactrim DS) cefuroxime axetil 250 mg tablet 250 mg PO BID 7 days #14 tabs 05/11/24 Allergies Allergy/AdvReac Type Severity Reaction Status Date / Time No Known Allergies Allergy Verified 05/17/24 21:55 [No Known Allergies*] Review of Systems Review of Systems: Constitutional : No Fever, No Chills ENT/Mouth : No Ear Pain, No Nasal Congestion, No sore throat Eyes: No Eye Pain, No Swelling, No Redness Cardiovascular : No Chest Pain, No SOB Respiratory : No Cough, No Sputum, No Dyspnea Gastrointestinal : No Nausea, No Vomiting, No Diarrhea, No Hematochezia, No Melena Genitourinary : No Dysuria, No Urinary Frequency, No Hematuria Musculoskeletal : No Myalgias Skin : No Skin Lesions, No rash Neuro : No Weakness, No Numbness, No Paresthesias, No Dizziness, No Headache Psych : positive Anxiety, no Depression, no SI/HI Heme/Lymph: No Lymphadenopathy Endocrine : No Polyuria, No Polydipsia All other systems reviewed and are negative [facility] Past Medical History Attestation statement: The following information was validated with the patient. Source: old records reviewed Medical History Numbness of left hand Bacteremia Hydroureteronephrosis Rash ETOH abuse TBI (traumatic brain injury) Mood disorder as late effect of traumatic brain injury Depression Surgical History Hx of cystoscopy Social History Social History Household Members: Unknown / Unable to assess Household Members Other:: Reports has been [employer]. Housing: Apartment Alcohol intake: current Alcohol intake frequency: 3 or more drinks per day Alcohol type: beer and hard liquor Comment: Pt ambulates independently with no apparent limitations. 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 Oriented X3. No acute distress. Seems possibly more intoxicated than when she left last time Eyes: Pupils equal, round and reactive to light. ENT: Pharynx normal. atraumatic Neck: Normal inspection. Neck supple. CVS: Normal heart rate and rhythm. Pulses normal. Respiratory: No respiratory distress. Breath sounds normal. Abdomen: Soft and nontender. Skin: Skin warm and dry. Normal skin color. Normal skin turgor. Extremities: No lower extremity edema. No calf ttp Neuro: Oriented X 3. No motor deficit. No sensory deficit. Cn2-12 intact Medical Decision Making Medical Decision Making MDM Narrative: 58 yo female with PMH of ETOH abuse who was discharged as planned to go back to [facility] then states no one came to get her. She just wants to go back and go to detox. She denies SI/HI. She does appear more intoxicated from DC will obtain repeat ETOH and drug screen - refer to CARE team. Differential Diagnosis Differential Diagnoses: The differential diagnosis associated with the presentation includes ETOH abuse, non-compliance Admission/Observation Consideration of admission/observation: Escalation of care including admission/observation considered physician observation started at 849pm pending CARE team Consult Healthcare Provider Management of the patient was discussed with: Behavioral Health Provider Lab Data [facility] Lab Attestation statement: I reviewed the patient's lab results. Labs: Lab Results 05/17/24 05/17/24 Range/Units 21:00 21:25 Urine Opiates Screen Not Detected (Not Detect) Ur Buprenorphine Scrn Not Detected (Not Detect) ng/mL Ur Oxycodone Screen Not Detected (Not Detect) ng/mL Urine Methadone Screen Not Detected (Not Detect) ng/mL Urine Fentanyl Screen Not Detected (Not Detect) Ur Barbiturates Screen Not Detected (Not Detect) Ur Phencyclidine Scrn Not Detected (Not Detect) Ur Amphetamines Screen Not Detected (Not Detect) U Benzodiazepines Scrn Not Detected (Not Detect) Urine Cocaine Screen Not Detected (Not Detect) U Marijuana (THC) Screen Not Detected (Not Detect) Ethyl Alcohol 305 H* mg/dL Independent Historian Clinical information obtained from an independent historian. History obtained from or confirmed by: EMS External Record Review External record reviewed: Inpatient record Social Determinants Patient?s care significantly limited by Social Determinants of Health including: Problems related to primary support group Medications Administered Generic Name Dose Route Start Last Admin Trade Name Freq PRN Reason Stop Dose Admin Lorazepam 2 mg 05/17/24 20:39 05/17/24 22:12 Lorazepam 1 Mg Tablet PO 2 mg Q3H PRN Administration Alcohol Withdrawal Discharge Plan Discharge Clinical Impression: ETOH abuse Patient Disposition: Still a Patient Prescriptions: No Action acetaminophen 325 mg tablet 325 mg PO Q6-8H PRN (Reason: Pain) ibuprofen 600 mg tablet 600 mg PO TID venlafaxine 37.5 mg capsule,extended release 24hr 75 mg PO DAILY hydroxyzine HCl 50 mg tablet 50 mg PO Q6H PRN (Reason: anxiety) quetiapine 50 mg tablet 150 mg PO BEDTIME PRN (Reason: Insomnia) melatonin 5 mg tablet 5 mg PO BEDTIME PRN (Reason: Insomnia) sulfamethoxazole-trimethoprim [Bactrim DS] 800-160 mg tablet 1 tab PO BID 3 Days Qty: 6 0RF cefuroxime axetil 250 mg tablet 250 mg PO BID 7 Days Qty: 14 0RF Print Language: Bengali
[2024-05-17 20:51] VITALS: BP 128/84; PULSE 92; O2SAT 98
--- NOTE | 2024-05-17 20:55 | PC.NURSE ---
per Dr Rucker pt is ok for the pod. Pt states she had 1-2 drinks, gait steady at this time. trial walked pt in the main.
--- NOTE | 2024-05-17 21:27 | PC.NURSE ---
PT score 6 on CIWA, reports she feels like she is withdrawing. She last drank 2 hours ago- 3 nips. Recently in treatment program and was sober during that short time.
[2024-05-17 21:29] VITALS: BP 136/84; PULSE 88; RESP 18; TEMP 36.9; O2SAT 97
[2024-05-17 21:35] LABS: Amphetamine Screen Urine Not Detected (Not Detect); Barbiturates, Urine Not Detected (Not Detect); Benzodiazepines Screen Urine Not Detected (Not Detect); Buprenorphine Scr Not Detected (Not Detect); Cannabinoid Screen Urine Not Detected (Not Detect); Cocaine Screen Urine Not Detected (Not Detect); Fentanyl, urine Not Detected (Not Detect); Methadone Screen, Urine Not Detected (Not Detect); Opiate Screen Urine Not Detected (Not Detect); Oxycodone Screen Urine Not Detected (Not Detect); Phencyclidine Screen Urine Not Detected (Not Detect)
[2024-05-17 21:44] LABS: Ethanol 305 mg/dL
[2024-05-17 21:53] VITALS: BP 136/84; PULSE 88; RESP 18; TEMP 36.9; O2SAT 97; BMI 27.5
[2024-05-17] MEDS: LORazepam 1 MG TABLET 2 MG PO (22:12)
[2024-05-18 06:43] VITALS: BP 125/65; PULSE 91; RESP 18; TEMP 36.7; O2SAT 99
--- NOTE | 2024-05-18 07:12 | PC.NURSE ---
Assumed care of patient at 0645. At this time the patient is resting quietly in their bed. No signs of distress observed.
--- NOTE | 2024-05-18 08:11 | MHC.CARE ---
Pt will be discharged back to [facility]. CARE Team will provide a Lyft.
[2024-05-18 08:22] VITALS: BP 125/65; PULSE 91; RESP 18; TEMP 36.7; O2SAT 99
== END 2024-05-18 09:39 | disposition home or self-care (01) ==
PROVIDERS: Emergency Medicine; Emergency Provider Emergency Medicine
DX: F10.129 Alcohol abuse with intoxication, unspecified (principal); N39.0 Urinary tract infection, site not specified; B96.20 Unspecified Escherichia coli [E. coli] as the cause of diseases classified elsewhere; F32.A Depression, unspecified; Z79.899 Other long term (current) drug therapy
CPT/HCPCS: 36415; 80307; 99284; S9485

== ENCOUNTER 2024-05-29 13:58 | Emergency (ER) | payer OTHER, SELFPAY ==
--- NOTE | ~2024-05-29 | CT_ITS ---
EXAMINATION: CT HEAD WITHOUT CONTRAST CLINICAL INFORMATION: Altered mental status. EtOH. COMPARISON: Head CT October 06, 2023 TECHNIQUE: Contiguous axial imaging was performed from the skull base to vertex without intravenous administration of contrast. This CT examination was performed using dose optimization techniques as appropriate, variously including the following: *Automated exposure control *Adjustment of mA and/or kV according to patient size (this includes techniques or standardized protocols for targeted exams where dose is matched to indication/reason for exam; i.e. extremities or head) *Use of iterative reconstruction technique DLP: 587 mGy-cm FINDINGS: There is no evidence of acute intracranial hemorrhage or territorial infarction. No abnormal mass effect or midline shift is appreciated. Hinton-white differentiation is well preserved. No extra-axial fluid collections. The ventricular system and cortical sulci are normal in size. The osseous structures and soft tissues are normal. Similar partial opacification of the left mastoid air cells. The visualized paranasal sinuses and right mastoid air cells are well aerated. CT/CT head/brain wo IV con IMPRESSION: No CT evidence of acute intracranial abnormality. Electronically signed by: Brian Lopez MD 05/29/2024 03:45 PM EDT
[2024-05-29 14:01] VITALS: BP 142/80; PULSE 90; O2SAT 94
[2024-05-29 14:08] VITALS: BP 138/69; PULSE 91; RESP 18; TEMP 36.2; O2SAT 95; BMI 33.4
--- NOTE | 2024-05-29 14:12 | ED_ITS ---
HPI - Psych General Chief Complaint: Psychiatric Symptoms Stated Complaint: ETOH,UNDER STRESS,WANTS TO KILL SELF NO PLAN Time Seen by Provider: 05/29/24 14:25 Source: patient and EMS Limitations: altered mental status (Drunk) History of Present Illness ED Provider: Selvin HPI Narrative: 58yo F PMHx ETOH abuse, BIBA due to being intoxicated in public. Patient endorsing SI x2 days with plan to OD on pills currently states she does not have pills to take and wishes she did. Patient denies other substance use. Patient denies previous attempt to harm or kill herself. Patient denies previous psychiatric admissions. Patient difficult to converse with due to emotional distress. Denies HI but later states she wants to kill someone to get her anger out. Patient states everything went to shit 2 days ago and would not elaborate when questioned. No trauma. No medical complaints. Related Data Home Medications ?Medication ?Instructions ?Recorded ?Confirmed quetiapine 50 mg tablet 150 mg PO BEDTIME PRN Insomnia 06/01/23 10/07/23 venlafaxine 37.5 mg 75 mg PO DAILY 06/01/23 10/07/23 capsule,extended release 24 hr clonidine HCl 0.1 mg tablet 0.1 mg PO DAILY 05/18/24 05/18/24 loratadine 10 mg tablet 10 mg PO DAILY 05/18/24 05/18/24 melatonin 3 mg tablet 3 mg PO BEDTIME 05/18/24 05/18/24 naltrexone 50 mg tablet 50 mg PO DAILY 05/18/24 05/18/24 quetiapine 100 mg tablet 100 mg PO BEDTIME 05/18/24 05/18/24 Previous Rx's ?Medication ?Instructions ?Recorded cefuroxime axetil 250 mg tablet 250 mg PO BID 7 days #14 tabs 05/11/24 cefuroxime axetil 250 mg tablet 250 mg PO BID 7 days #14 tabs 05/29/24 Allergies Allergy/AdvReac Type Severity Reaction Status Date / Time No Known Allergies Allergy Verified 05/29/24 14:10 [No Known Allergies*] Review of Systems 2 Review of Systems: Yes Unobtainable due to mental status PMFSH Past Medical History Attestation statement: The following information was validated with the patient. Source: old records reviewed and nursing notes reviewed Medical History Numbness of left hand Bacteremia Hydroureteronephrosis Rash ETOH abuse TBI (traumatic brain injury) Mood disorder as late effect of traumatic brain injury Depression Surgical History Hx of cystoscopy Social History Social History Household Members: Unknown / Unable to assess Household Members Other:: Reports has been [employer] surfing. Housing: Apartment Alcohol intake: current Alcohol intake frequency: 3 or more drinks per day Alcohol type: hard liquor Comment: Pt ambulates independently with no apparent limitations. 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 Oriented X3.?Emotionally distressed, crying and yelling I want to kill myself Head: Normocephalic, atraumatic Eyes: Pupils equal, round and reactive to light.? Neck: Normal inspection.? CVS: Normal heart rate and rhythm.? Pulses normal.? Respiratory: No respiratory distress.? Breath sounds normal.? Abdomen: Soft and nontender.? Skin: Skin warm and dry.? Normal skin color.? Normal skin turgor.? Extremities: No lower extremity edema.? No calf ttp. 5/5 strength to bilateral upper and lower extremities Back: No midline tenderness, no C-spine tenderness, full range of motion, no CVA tenderness bilaterally Neuro: Oriented X 3. Course Reevaluation(s) Reevaluation #1: Refusing labs. Sleeping. Sign out to Kylee pending labs, imaging --> care team chen. Time: 15:03 Reevaluation #2: I Sonia Lan PA-C have accepted care of the patient had signed out pending reassessment. Reevaluation #3: The patient is becoming hostile and belligerent, at this point she is clinically sober, we will relate to her that she has a urinary tract infection, a CT scan of the brain was obtained and was negative Time: 18:30 Medications Administered Discontinued Medications Generic Name Dose Route Start Last Admin Trade Name Freq PRN Reason Stop Dose Admin Cefuroxime Axetil 250 mg 05/29/24 14:38 05/29/24 15:11 Cefuroxime Axetil 250 Mg Tablet PO 05/29/24 14:39 250 mg ONCE ONE Administration Medical Decision Making Medical Decision Making [facility] Narrative: 58yo F presenting with ETOH intoxication and SI with plan to OD on pills PE: emotional distress, crying, screaming I want to kill myself PE limited due to patient's emotional state and intoxication, not cooperative to exam at this time Hx and PE concerning for ETOH intoxication and SI with plan. Less likely, metabolic derangement, encephalitis, meningitis, hepatic encephalopathy Plan: labs, toxicology, sober -> care team Differential Diagnosis Differential Diagnoses: The differential diagnosis associated with the presentation includes (Hx and PE concerning for ETOH intoxication and SI with plan. Less likely, metabolic derangement, encephalitis, meningitis, hepatic encephalopathy ) Admission/Observation Consideration of admission/observation: Escalation of care including admission/observation considered Possible Lab Data [facility] Lab Attestation statement: I reviewed the patient's lab results. 05/29/24 15:50 05/29/24 15:50 Labs: Lab Results 05/29/24 05/29/24 Range/Units 14:25 15:50 WBC 6.4 (4.8-10.8) X10*3/uL RBC 4.38 (4.20-5.50) X10*6/uL Hgb 13.6 (12.0-16.0) g/dl Hct 39.9 (37.0-47.0) % MCV 91.1 (80.0-98.0) fL MCH 31.1 (27.0-33.0) pg MCHC 34.1 (31.0-35.0) g/dl RDW 13.6 (11.0-16.0) % Plt Count 356 (160-400) X10*3/uL MPV 8.8 L (9.4-12.3) fL Immature Gran % (Auto) 0.2 (0.0-0.4) % Neut % (Auto) 33.5 L (45-73) % Lymph % (Auto) 57.3 H (20-40) % Baker % (Auto) 6.6 (2-11) % Eos % (Auto) 1.6 (0-4) % Baso % (Auto) 0.8 (0-2) % Lymph # (Auto) 3.7 (1.2-4.9) X10*3/uL Baker # (Auto) 0.4 (0.1-1.2) X10*3/uL Eos # (Auto) 0.1 (0.0-0.4) X10*3/uL Baso # (Auto) 0.1 (0.0-0.2) X10*3/uL Abs Immat Gran (auto) 0.01 (0.00-0.03) X10*3/uL Absolute Neuts (auto) 2.2 (2.0-8.3) x10*3/uL Absolute Nucleated RBC 0.000 (0.0-0.012) X10*3/uL Nucleated RBC % (auto) 0.0 (0.0-0.2) /100WBC Sodium 144 (135-145) mmol/L Potassium 4.9 D (3.3-5.1) mmol/L Chloride 107 (96-108) mmol/L Carbon Dioxide 27 (22-29) mmol/L Anion Gap 15 (12-20) BUN 13 (9-16) mg/dL Creatinine 0.80 (0.5-1.4) mg/dL Estim Creat Clear Calc 68.8 Estimated GFR > 60 Random Glucose 98 (60-115) mg/dL Calcium 9.2 (8.4-10.2) mg/dL Magnesium 2.2 (1.6-2.6) mg/dL Total Bilirubin 0.3 (0.0-1.0) mg/dL AST 23 (5-31) U/L ALT 19 (0-31) U/L Alkaline Phosphatase 60 (39-117) U/L Total Protein 7.7 (6.5-8.0) g/dL Albumin 4.2 (3.5-5.0) g/dL Urine Color Dark Yellow Urine Appearance Clear Urine pH 6.5 (5.0-9.0) Ur Specific [place] 1.010 (1.005-1.025) Urine Protein Negative (Neg-Trace) mg/dL Urine Glucose (UA) Negative (Negative) mg/dL Urine Ketones Negative (Negative) mg/dL Urine Blood Negative (Negative) Urine Nitrite Positive H (Negative) Ur Leukocyte Esterase Trace H (Negative) Urine RBC 0-2 (0-2) /HPF Urine WBC 0-5 (0-5) /HPF Ur Squamous Epith Cells 0-2 (0-2) /HPF Urine Bacteria None Seen (None Seen) Hyaline Casts 0-2 (0-2) /LPF Salicylates < 5.0 L (15-30) mg/dL Urine Opiates Screen Not Detected (Not Detect) Ur Buprenorphine Scrn Not Detected (Not Detect) ng/mL Ur Oxycodone Screen Not Detected (Not Detect) ng/mL Urine Methadone Screen Not Detected (Not Detect) ng/mL Urine Fentanyl Screen Not Detected (Not Detect) Acetaminophen < 3 (<30) mcg/mL Ur Barbiturates Screen Not Detected (Not Detect) Ur Phencyclidine Scrn Not Detected (Not Detect) Ur Amphetamines Screen Not Detected (Not Detect) U Benzodiazepines Scrn Not Detected (Not Detect) Urine Cocaine Screen Not Detected (Not Detect) U Marijuana (THC) Screen Not Detected (Not Detect) Ethyl Alcohol 294 mg/dL Independent Interpretation I performed an independent interpretation of an: CT Scan ( CT/CT head/brain wo IV con IMPRESSION: No CT evidence of acute intracranial abnormality.) Radiology Impression Discussion of test interpretation with radiology: I have reviewed the radiologist's reading. External Record Review External record reviewed: Inpatient record, Office record, Outpatient record, Prior outpatient labs, Prior outpatient radiology, Primary care record and Outside ED record Prescription Management I considered prescription management with: Antibiotic (ceftin UTI ) Chronic Conditions Patient?s care impacted by: Other (see hpi ) Critical Care Time Critical Care Time Critical Care Time: No Discharge Plan Discharge Clinical Impression: Suicidal ideation, Alcohol use, UTI (urinary tract infection) Patient Disposition: Still a Patient Instructions: Urinary Tract Infection in Women (ED), Alcohol Withdrawal (ED), Suicide Prevention (ED) Additional Instructions: Take your medications as prescribed. If you were prescribed antibiotics today, it is important that you take your medication to their entirety, do not skip any doses, do not finish them early. Follow-up with your primary care provider this week. Return to the emergency department with new or worsening symptoms. Such as fevers, chills, chest pain, shortness of breath, nausea, vomiting, dizziness, headache, vision changes, lethargy In case of emergency call 911 Prescriptions: New cefuroxime axetil 250 mg tablet 250 mg PO BID 7 Days Qty: 14 0RF No Action clonidine HCl 0.1 mg tablet 0.1 mg PO DAILY naltrexone 50 mg tablet 50 mg PO DAILY melatonin 3 mg tablet 3 mg PO BEDTIME quetiapine 100 mg tablet 100 mg PO BEDTIME loratadine 10 mg tablet 10 mg PO DAILY venlafaxine 37.5 mg capsule,extended release 24hr 75 mg PO DAILY quetiapine 50 mg tablet 150 mg PO BEDTIME PRN (Reason: Insomnia) cefuroxime axetil 250 mg tablet 250 mg PO BID 7 Days Qty: 14 0RF Referrals: Physician,Unknown J [Primary Care Provider] - 2 days Stand Alone Forms: Work/School Release Interventions: [place]-Suicide Risk Severity Scale Last Done: 05/29/24 14:08 Print Language: Kinyarwanda
--- NOTE | 2024-05-29 14:29 | PC.NURSE ---
pt changed into hospital attire with tech and security- belongings in [facility].
--- NOTE | 2024-05-29 14:30 | PC.NURSE ---
pt refusing lab draw at this time- will reattempt olvin pt is arsh quintero- pt admits to SI/HI 1:[address] for safety-pt sts plan is to self harm by popping pills but doesnt have any . care ongoing
[2024-05-29 14:32] LABS: Appearance Urine Clear; Color Urine Dark Yellow; Glucose Urine UA Negative (Negative); Leukocyte Esterase Urine Trace (Negative); Nitrite Urine Positive (Negative); PH 6.5 (5.0-9.0); UMIC TRIGGER UACC YES; Urine Blood Negative (Negative); Urine Ketones Negative (Negative); Urine Protein Negative (Neg-Trace)
[2024-05-29 14:47] LABS: Bacteria Urine None Seen (None Seen); Hyaline Casts Urine 0-2 /LPF (0-2); RBC Urine 0-2 /HPF (0-2); Squamous Epithelial Cell Urine 0-2 /HPF (0-2); UACC Culture Trigger YES; WBC Urine 0-5 /HPF (0-5)
[2024-05-29 15:01] LABS: Amphetamine Screen Urine Not Detected (Not Detect); Barbiturates, Urine Not Detected (Not Detect); Benzodiazepines Screen Urine Not Detected (Not Detect); Buprenorphine Scr Not Detected (Not Detect); Cannabinoid Screen Urine Not Detected (Not Detect); Cocaine Screen Urine Not Detected (Not Detect); Fentanyl, urine Not Detected (Not Detect); Methadone Screen, Urine Not Detected (Not Detect); Opiate Screen Urine Not Detected (Not Detect); Oxycodone Screen Urine Not Detected (Not Detect); Phencyclidine Screen Urine Not Detected (Not Detect)
[2024-05-29] MEDS: cefuroxime axetiL 250 MG TABLET PO (15:11)
[2024-05-29 15:54] LABS: MANUAL DIFF FLAG NO
[2024-05-29 15:58] LABS: Basophils Absolute Auto 0.1 X10*3/uL (0.0-0.2); Basophils Percent Auto 0.8 % (0-2); Eosinophils Absolute Auto 0.1 X10*3/uL (0.0-0.4); Eosinophils Percent Auto 1.6 % (0-4); Hematocrit 39.9 % (37.0-47.0); Hemoglobin 13.6 g/dl (12.0-16.0); Imm Gran Abs Auto 0.01 X10*3/uL (0.00-0.03); Imm Gran Pct Auto 0.2 % (0.0-0.4); Lymphocytes Absolute Auto 3.7 X10*3/uL (1.2-4.9); Lymphocytes Percent Auto 57.3 % (20-40); Mean Corpuscular HGB Conc 34.1 g/dl (31.0-35.0); Mean Corpuscular Hemoglobin 31.1 pg (27.0-33.0); Mean Corpuscular Volume 91.1 fL (80.0-98.0); Mean Platelet Volume 8.8 fL (9.4-12.3); Monocytes Absolute Auto 0.4 X10*3/uL (0.1-1.2); Monocytes Percent Auto 6.6 % (2-11); Neutrophils Absolute Auto 2.2 x10*3/uL (2.0-8.3); Neutrophils Percent Auto 33.5 % (45-73); Platelet Count 356 X10*3/uL (160-400); Red Blood Count 4.38 X10*6/uL (4.20-5.50); Red Cell Distribution Width 13.6 % (11.0-16.0); White Blood Count 6.4 X10*3/uL (4.8-10.8)
--- NOTE | 2024-05-29 16:03 | PC.NURSE ---
spoke with dietary- requested chicken noodle soup and turkey sandwich- diet order entered- labs obtained- CT resulted, negative for any acute findings
[2024-05-29 16:22] LABS: Acetaminophen LAB < 3 mcg/mL (<30); Alanine Aminotransferase 19 U/L (0-31); Albumin Level 4.2 g/dL (3.5-5.0); Alkaline Phosphatase 60 U/L (39-117); Anion Gap 15 (12-20); Aspartate Amino Transferase 23 U/L (5-31); Bilirubin Total 0.3 mg/dL (0.0-1.0); Blood Urea Nitrogen 13 mg/dL (9-16); Calcium 9.2 mg/dL (8.4-10.2); Carbon Dioxide 27 mmol/L (22-29); Chloride 107 mmol/L (96-108); Creatinine Clr Calc Pharmacy 68.8; Estimated Glomerular Filt Rate > 60; Ethanol 294 mg/dL; Glucose Random 98 mg/dL (60-115); Magnesium 2.2 mg/dL (1.6-2.6); Potassium 4.9 mmol/L (3.3-5.1); Salicylate < 5.0 mg/dL (15-30); Sodium 144 mmol/L (135-145); Total Protein 7.7 g/dL (6.5-8.0)
--- NOTE | 2024-05-29 16:54 | MHC.CARE ---
Pt has been asleep and not available for MSU re assessment at this time. Pt was restrained and IM was administered by nursing staff earlier.
--- NOTE | 2024-05-29 18:18 | MHC.EDTECH ---
This tech attempted to take the pt vitals, to which the pt refused and stated I just want to leave.
[2024-05-29 18:42] VITALS: BP 138/69; PULSE 91; RESP 18; TEMP 36.2; O2SAT 95
== END 2024-05-29 18:43 | disposition home or self-care (01) ==
PROVIDERS: Physician Assistant; Emergency Provider Emergency Medicine
DX: F10.10 Alcohol abuse, uncomplicated (principal); Y90.8 Blood alcohol level of 240 mg/100 ml or more; R45.851 Suicidal ideations; N39.0 Urinary tract infection, site not specified; B96.20 Unspecified Escherichia coli [E. coli] as the cause of diseases classified elsewhere; Z79.899 Other long term (current) drug therapy
CPT/HCPCS: 36415; 70450; 80053; 80143; 80179; 80307; 81001; 83735; 85025; 87086; 87088; 87186; 99284

== ENCOUNTER 2024-05-31 18:28 | Emergency (ER) | payer OTHER, SELFPAY ==
[2024-05-31 18:37] VITALS: BP 138/92; PULSE 100; O2SAT 98
[2024-05-31 18:41] VITALS: BP 124/74; PULSE 97; RESP 20; TEMP 36.1; O2SAT 100; BMI 32.0
[2024-05-31 19:28] LABS: MANUAL DIFF FLAG NO
[2024-05-31 19:44] LABS: Basophils Percent Auto 0.6 % (0-2); Eosinophils Percent Auto 0.2 % (0-4); Hemoglobin 14.1 g/dl (12.0-16.0); Imm Gran Abs Auto 0.01 X10*3/uL (0.00-0.03); Imm Gran Pct Auto 0.2 % (0.0-0.4); Lymphocytes Absolute Auto 2.9 X10*3/uL (1.2-4.9); Lymphocytes Percent Auto 45.8 % (20-40); Mean Corpuscular HGB Conc 34.4 g/dl (31.0-35.0); Mean Corpuscular Hemoglobin 30.7 pg (27.0-33.0); Mean Corpuscular Volume 89.1 fL (80.0-98.0); Mean Platelet Volume 9.1 fL (9.4-12.3); Monocytes Absolute Auto 0.4 X10*3/uL (0.1-1.2); Monocytes Percent Auto 6.9 % (2-11); Neutrophils Percent Auto 46.3 % (45-73); Platelet Count 355 X10*3/uL (160-400); Red Cell Distribution Width 13.2 % (11.0-16.0); White Blood Count 6.4 X10*3/uL (4.8-10.8)
[2024-05-31 20:04] LABS: Ethanol 272 mg/dL
[2024-05-31 20:06] LABS: Alanine Aminotransferase 21 U/L (0-31); Albumin Level 4.7 g/dL (3.5-5.0); Alkaline Phosphatase 66 U/L (39-117); Anion Gap 17 (12-20); Aspartate Amino Transferase 25 U/L (5-31); Bilirubin Direct 0.3 mg/dL (0.0-0.5); Bilirubin Total 0.8 mg/dL (0.0-1.0); Blood Urea Nitrogen 16 mg/dL (9-16); Carbon Dioxide 27 mmol/L (22-29); Chloride 101 mmol/L (96-108); Creatinine Clr Calc Pharmacy 71.1; Estimated Glomerular Filt Rate > 60; Glucose Random 102 mg/dL (60-115); Magnesium 2.3 mg/dL (1.6-2.6); Sodium 141 mmol/L (135-145); Total Protein 8.5 g/dL (6.5-8.0)
--- NOTE | 2024-05-31 20:20 | ED.ALCOHOL ---
HPI - Alcohol General Chief Complaint: ETOH/Substance Use Stated Complaint: ETOH Time Seen by Provider: 05/31/24 18:45 Source: patient and EMS Mode of arrival: EMS Limitations: no limitations History of Present Illness ED Provider: Dr. Meron Corea HPI narrative: Patient comes to the emergency room complaining of alcohol intoxication. Patient coming from home via ambulance, states that she drank 3 nips and had a beer before calling EMS. Patient states that she would like Rehab. Patient denies any falls or any injuries. Related Data Home Medications ?Medication ?Instructions ?Recorded ?Confirmed quetiapine 50 mg tablet 150 mg PO BEDTIME PRN Insomnia 06/01/23 10/07/23 venlafaxine 37.5 mg 75 mg PO DAILY 06/01/23 10/07/23 capsule,extended release 24 hr clonidine HCl 0.1 mg tablet 0.1 mg PO DAILY 05/18/24 05/18/24 loratadine 10 mg tablet 10 mg PO DAILY 05/18/24 05/18/24 melatonin 3 mg tablet 3 mg PO BEDTIME 05/18/24 05/18/24 naltrexone 50 mg tablet 50 mg PO DAILY 05/18/24 05/18/24 quetiapine 100 mg tablet 100 mg PO BEDTIME 05/18/24 05/18/24 Previous Rx's ?Medication ?Instructions ?Recorded cefuroxime axetil 250 mg tablet 250 mg PO BID 7 days #14 tabs 05/11/24 cefuroxime axetil 250 mg tablet 250 mg PO BID 7 days #14 tabs 05/29/24 Allergies Allergy/AdvReac Type Severity Reaction Status Date / Time No Known Allergies Allergy Verified 05/31/24 18:45 [No Known Allergies*] Review of Systems Review of Systems: Constitutional : No Weight loss, No Fever, No Chills, No Night Sweats, No Fatigue, No Malaise ENT/Mouth : No Hearing loss, No Ear Pain, No Nasal Congestion, No Sinus Pain, No Hoarseness, No sore throat, No Rhinorrhea, No Swallowing Difficulty Eyes: No Eye Pain, No Swelling, No Redness, No Foreign Body, No Discharge, No Vision Changes Cardiovascular : No Chest Pain, No SOB, No Dyspnea on Exertion, No Orthopnea, No Edema, No Palpitations Respiratory : No Cough, No Sputum, No Wheezing, No Smoke Exposure, No Dyspnea Gastrointestinal : No Nausea, No Vomiting, No Diarrhea, No Constipation, No abdominal Pain, No Hematochezia, No Melena Genitourinary : no irregular bleeding, No Dysuria, No Urinary Frequency, No Hematuria, No Urinary Incontinence, No Urgency, No Flank Pain, No Urinary Flow Changes, No Hesitancy Musculoskeletal : No joint pain, No Myalgias, No Joint Swelling Skin : No Skin Lesions, No rash Neuro : No Weakness, No Numbness, No Paresthesias, No Loss of Consciousness, No Dizziness, No Headache Psych : No Anxiety/Panic, No Depression, No SI/HI/AH/VH, admits to alcohol intoxication and dependence, requesting detox Heme/Lymph: No Bruising, No Bleeding,No Lymphadenopathy Endocrine : No Polyuria, No Polydipsia, No Temperature Intolerance PMFSH Past Medical History Medical History Numbness of left hand Bacteremia Hydroureteronephrosis Rash ETOH abuse TBI (traumatic brain injury) Mood disorder as late effect of traumatic brain injury Depression Surgical History Hx of cystoscopy Social History Social History Household Members: Unknown / Unable to assess Household Members Other:: Reports has been [employer] surfing. Housing: Apartment Alcohol intake: current Alcohol intake frequency: 3 or more drinks per day Alcohol type: beer and hard liquor Comment: Pt ambulates independently with no apparent limitations. 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 Oriented X3. No acute distress. Intoxicated Eyes: Pupils equal, round and reactive to light. ENT: Pharynx normal. Neck: Normal inspection. Neck supple. No lymph nodes noted. No crepitus CVS: Normal heart rate and rhythm. Pulses normal. Normal S1 and S2 Respiratory: No respiratory distress. Breath sounds normal. No Wheezing. No rales Abdomen: Soft and nontender. No rigidity. No distention. Skin: Skin warm and dry. Normal skin color. Normal skin turgor. Extremities: No lower extremity edema. No Lacerations. No Rash Neuro: Oriented X 3. No motor deficit. No sensory deficit. Moving all extremities. No slurred speech. CN 2 through 12 grossly intact Psych: calm, cooperative, intoxicated Course Course Course Narrative: All of patient's labs pending Care team consult pending Patient denies SI or HI, no indication for Section 12 Medical Decision Making Medical Decision Making [facility] Narrative: My interpretation of labs, normal hematology, normal chemistry, normal LFTs, ETOH level 272 -care team consult pending -physician observation started 20:30 Care team evaluated the patient, patient is not SI or HI, patient was given outpatient resources. Differential Diagnosis Differential Diagnoses: The differential diagnosis associated with the presentation includes (Alcohol dependence, alcohol intoxication, polysubstance abuse, anxiety and depression) Admission/Observation Consideration of admission/observation: Escalation of care including admission/observation considered (Patient under physician observation waiting to be seen by the care team to determine disposition) Lab Data [facility] Lab Attestation statement: I reviewed the patient's lab results. 05/31/24 19:22 05/31/24 19:22 Labs: Lab Results 05/31/24 Range/Units 19:22 WBC 6.4 (4.8-10.8) X10*3/uL RBC 4.60 (4.20-5.50) X10*6/uL Hgb 14.1 (12.0-16.0) g/dl Hct 41.0 (37.0-47.0) % MCV 89.1 (80.0-98.0) fL MCH 30.7 (27.0-33.0) pg MCHC 34.4 (31.0-35.0) g/dl RDW 13.2 (11.0-16.0) % Plt Count 355 (160-400) X10*3/uL MPV 9.1 L (9.4-12.3) fL Immature Gran % (Auto) 0.2 (0.0-0.4) % Neut % (Auto) 46.3 (45-73) % Lymph % (Auto) 45.8 H (20-40) % [place] % (Auto) 6.9 (2-11) % Eos % (Auto) 0.2 (0-4) % Baso % (Auto) 0.6 (0-2) % Lymph # (Auto) 2.9 (1.2-4.9) X10*3/uL [place] # (Auto) 0.4 (0.1-1.2) X10*3/uL Eos # (Auto) 0.0 (0.0-0.4) X10*3/uL Baso # (Auto) 0.0 (0.0-0.2) X10*3/uL Abs Immat Gran (auto) 0.01 (0.00-0.03) X10*3/uL Absolute Neuts (auto) 3.0 (2.0-8.3) x10*3/uL Absolute Nucleated RBC 0.000 (0.0-0.012) X10*3/uL Nucleated RBC % (auto) 0.0 (0.0-0.2) /100WBC Sodium 141 (135-145) mmol/L Potassium 4.0 (3.3-5.1) mmol/L Chloride 101 (96-108) mmol/L Carbon Dioxide 27 (22-29) mmol/L Anion Gap 17 (12-20) BUN 16 (9-16) mg/dL Creatinine 0.82 (0.5-1.4) mg/dL Estim Creat Clear Calc 71.1 Estimated GFR > 60 Random Glucose 102 (60-115) mg/dL Calcium 10.0 D (8.4-10.2) mg/dL Magnesium 2.3 (1.6-2.6) mg/dL Total Bilirubin 0.8 (0.0-1.0) mg/dL Direct Bilirubin 0.3 (0.0-0.5) mg/dL AST 25 (5-31) U/L ALT 21 (0-31) U/L Alkaline Phosphatase 66 (39-117) U/L Total Protein 8.5 H (6.5-8.0) g/dL Albumin 4.7 (3.5-5.0) g/dL Ethyl Alcohol 272 mg/dL Critical Care Time Critical Care Time Critical Care Time: Yes Total Critical Care Time: 35 Attestation: I have personally provided critical care time. Time includes review of lab data, radiology results, discussion with consultants, and monitoring for potential decompensation. Intervention performed as documented. Discharge Plan Discharge Clinical Impression: ETOH abuse Patient Disposition: Home, Self-Care Instructions: Abuse of Alcohol (ED) Additional Instructions: Please follow-up with your primary care physician tomorrow. If you have any worsening or new symptoms, please return to the emergency room or call 911 Prescriptions: No Action clonidine HCl 0.1 mg tablet 0.1 mg PO DAILY naltrexone 50 mg tablet 50 mg PO DAILY melatonin 3 mg tablet 3 mg PO BEDTIME quetiapine 100 mg tablet 100 mg PO BEDTIME loratadine 10 mg tablet 10 mg PO DAILY cefuroxime axetil 250 mg tablet 250 mg PO BID 7 Days Qty: 14 0RF venlafaxine 37.5 mg capsule,extended release 24hr 75 mg PO DAILY quetiapine 50 mg tablet 150 mg PO BEDTIME PRN (Reason: Insomnia) cefuroxime axetil 250 mg tablet 250 mg PO BID 7 Days Qty: 14 0RF Print Language: American
[2024-05-31 22:30] VITALS: BP 149/71; PULSE 100; RESP 16; TEMP 36.1; O2SAT 95
[2024-05-31 22:39] VITALS: BP 149/71; PULSE 100; RESP 16; TEMP 36.1; O2SAT 95
== END 2024-05-31 22:40 | disposition home or self-care (01) ==
PROVIDERS: Emergency Provider Emergency Medicine
DX: F10.120 Alcohol abuse with intoxication, uncomplicated (principal); Y90.8 Blood alcohol level of 240 mg/100 ml or more
CPT/HCPCS: 36415; 80048; 80076; 80307; 83735; 85025; 99284

== ENCOUNTER 2024-12-21 21:17 | Emergency (ER) | payer OTHER, SELFPAY ==
[2024-12-21 21:29] VITALS: BP 140/70; BP 147/72; PULSE 95; PULSE 99; RESP 18; TEMP 36.8; O2SAT 97; O2SAT 98; BMI 30.4
--- OUTSIDE RECORDS SUMMARY | 2024-12-21 22:02 | XMS_ITS | Referral Summary ---
Author Organization [facility] Address [address] [place] [address] Care Team Providers Care Photoengraving Sketch Maker Name Role Phone Tonia Nelson Primary Care Provider [phone] Allergies No known active allergies Medications acetaminophen (TYLENOL) 325 mg tablet Take 650 mg by mouth every 4 hours as needed for pain or headache (not to exceed 2600 mg/day). Active ondansetron (ZOFRAN) 4 mg tablet Take 4 mg by mouth every 6 hours as needed for nausea or vomiting. Active multivitamin (THERAGRAN) tablet Take 1 tablet by mouth once a day. Active melatonin 3 mg tablet Take 5 mg by mouth nightly. Active propranoloL (INDERAL) 10 mg tablet Take 10 mg by mouth 3 times a day. Active hydrOXYzine (ATARAX) 50 mg tablet Take 50 mg by mouth 4 times a day as needed for itching or anxiety (if SBP <100 or pulse <60 wait 30 minutes to administer clonidine). Active hydrocortisone 1% cream Apply 1 application. topically to the affected area 2 times a day. To legs Active QUEtiapine (SEROquel) 50 mg tablet Take 150 mg by mouth nightly. Active phenazopyridine (PYRIDIUM) 100 mg tablet Take 1 tablet (100 mg total) by mouth 3 times a day as needed for bladder spasms. 30 tablet 03/20/2023 11:46 AM EDT 3 Active omeprazole (PriLOSEC) 40 mg capsule Take 1 capsule (40 mg total) by mouth once a day. 30 capsule 03/20/2023 11:46 AM EDT 3 Active Active Problems Problem Noted Date Diagnosed Date Alcohol use disorder 03/18/2023 Assessment & Plan (03/18/2023 12:23 PM EDT): History of alcohol use disorder. Patient was recently detoxing at [facility] since 03/12. She reports that she has completed her detox. Denies withdrawal symptoms. [facility] reports that patient will need to go through admissions again to return to [facility], if they do not take patient back then [facility] will provide transportation back to patients home. - Thiamine HCL 100 mg daily - Support sobriety Anxiety 03/18/2023 Assessment & Plan (03/18/2023 12:26 PM EDT): - Continue hydroxyzine 50 4x daily PRN anxiety - Propranolol 10 mg 3 times a day - Quetiapine 150 mg nightly Esophagitis 03/18/2023 Assessment & Plan (03/18/2023 12:29 PM EDT): CTAP notable for nonspecific distal esophageal wall thickening, suspicious for esophagitis. Patient reports occasional heart burn. - TUMs PRN - Outpatient follow up Resolved Problems Problem Noted Date Diagnosed Date Resolved Date Right flank pain 03/18/2023 03/18/2023 Urinary tract infection 03/18/2023 07/2 02/2023 Assessment & Plan (03/18/2023 12:23 PM EDT): Patient presents from [facility] for persistent dysuria, suprapubic pain and urinary frequency despite outpatient antibiotics. Patient had a recent R sided ureteral stent placed at [facility]. At the ED, patient was hemodynamically stable. Labs were unremarkable, no evidence of leukocytosis. UA dirty. CTAP revealed appropriately positioned R ureteral stent with a 5 mm renal stone adjacent to the stent without hydronephrosis. There was some cystitis and R ureteritis which may be infectious or reactive in etiology. CTAP was reviewed by urology and they confirm that stent placement is appropriately placed. - Urology consulted, appreciate recs - Continue Ceftriaxone 1 g daily for a total of 7 days - holding Tamsulosin 0.4 mg - Acetaminophen 650 mg every 6 hours for pain/fever - Follow urine culture Social History Tobacco Use Types Packs/Day Years Used Date Smoking Tobacco: Never Smokeless Tobacco: Never Alcohol Use Standard Drinks/Week Comments Not Currently 0 (1 standard drink = 0.6 oz pur e alcohol) Comments No Sex and Gender Information Value Date Recorded Sex Assigned at Not on file Legal Sex Female 12:25 PM EDT Gender Identity Not on file Sexual Orientation Not on file Last Filed Vital Signs Vital Sign Reading Time Taken Comments Blood Pressure 126/67 03/20/2023 1:11 PM EDT Pulse 71 03/20/2023 1:11 PM EDT Temperature 36.7 ??C (98 ??F) 03/20/2023 9:21 AM EDT Respiratory Rate 18 03/20/2023 1:11 PM EDT Oxygen Saturation 99% 03/20/2023 1:11 PM EDT Inhaled Oxygen Concentration - - Weight 79.4 kg (175 lb) 03/17/2023 4:08 PM EDT Height 154.9 cm (5' 1 ) 03/17/2023 4:08 PM EDT Body Mass Index 33.07 03/17/2023 4:08 PM EDT Plan of Treatment Not on file Insurance [employer] Advance Directives * Full Code (Latest Code Status on File) Date Activated Date Inactivated Comments 03/18/2023 11:53 AM 03/20/2023 4:21 PM * Presumed Full Code Date Activated Date Inactivated Comments 03/18/2023 5:08 AM 03/18/2023 11:53 AM Care Teams Photoengraving Sketch Maker Relationship Specialty Start Date End Date Tonia Nelson [address] [place] [address] PCP - General Internal Medicine 06/19/20
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
[2024-12-21 22:28] LABS: MANUAL DIFF FLAG NO
[2024-12-21 22:30] LABS: Basophils Percent Auto 0.4 % (0-2); Eosinophils Absolute Auto 0.2 X10*3/uL (0.0-0.4); Eosinophils Percent Auto 2.1 % (0-4); Hematocrit 33.4 % (37.0-47.0); Hemoglobin 11.5 g/dl (12.0-16.0); Imm Gran Abs Auto 0.02 X10*3/uL (0.00-0.03); Imm Gran Pct Auto 0.2 % (0.0-0.4); Lymphocytes Absolute Auto 3.1 X10*3/uL (1.2-4.9); Lymphocytes Percent Auto 37.9 % (20-40); Mean Corpuscular HGB Conc 34.4 g/dl (31.0-35.0); Mean Corpuscular Hemoglobin 31.9 pg (27.0-33.0); Mean Corpuscular Volume 92.8 fL (80.0-98.0); Mean Platelet Volume 9.3 fL (9.4-12.3); Monocytes Absolute Auto 0.7 X10*3/uL (0.1-1.2); Monocytes Percent Auto 8.2 % (2-11); Neutrophils Absolute Auto 4.2 x10*3/uL (2.0-8.3); Neutrophils Percent Auto 51.2 % (45-73); Platelet Count 251 X10*3/uL (160-400); Red Cell Distribution Width 13.6 % (11.0-16.0); White Blood Count 8.2 X10*3/uL (4.8-10.8)
[2024-12-21 22:42] LABS: Alanine Aminotransferase 16 U/L (0-31); Alkaline Phosphatase 63 U/L (39-117); Anion Gap 14 (12-20); Aspartate Amino Transferase 22 U/L (5-31); Bilirubin Total 0.3 mg/dL (0.0-1.0); Blood Urea Nitrogen 13 mg/dL (9-16); Calcium 9.2 mg/dL (8.4-10.2); Carbon Dioxide 26 mmol/L (22-29); Chloride 112 mmol/L (96-108); Creatinine Clr Calc Pharmacy 51.8; Estimated Glomerular Filt Rate 56; Ethanol 222 mg/dL; Glucose Random 107 mg/dL (60-115); Potassium 3.5 mmol/L (3.3-5.1); Sodium 148 mmol/L (135-145)
--- NOTE | 2024-12-21 22:54 | PC.NURSE ---
pt biba from [facility] job lot, a&ox3, respirations even and unlabored. per ems, pt called requesting help to stop drinking due to feeling sad and relapsing. pt denied si/hi to ems. on arrival, pt states to this rn what the fuck do you think i am here for and made vague SI comments while being changed over and states i wish i took all the pills in my purse . pt states she just wants help but will not stay very long . pt changed into hospital attire, vss. labs obtained. sitter at bedside for safety.
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
--- NOTE | 2024-12-22 03:56 | MHC.EDTECH ---
late entry: this tech assumed care of this pt @[id number]
[2024-12-22 06:03] VITALS: BP 112/67; PULSE 100; RESP 16; TEMP 36.7; O2SAT 93
[2024-12-22 08:39] VITALS: BP 154/76; PULSE 88; RESP 19; TEMP 36.6; O2SAT 98
--- NOTE | 2024-12-22 08:40 | PC.NURSE ---
states etoh last night for the first time in about a year, no complaints, wants to go home, denies si/hi, well. I've said that before when I'm drunk , Dr Stringer informed
[2024-12-22 08:56] VITALS: BP 154/76; PULSE 88; RESP 19; TEMP 36.6; O2SAT 98
--- NOTE | 2024-12-22 09:25 | PC.NURSE ---
3 bags of belongings returned to patient. Patient is in the bathroom changing into attire from home. Ambulates with steady gait. Discharge instructions reviewed & paperwork signed.
== END 2024-12-22 09:31 | disposition home or self-care (01) ==
PROVIDERS: Emergency Provider Emergency Medicine
DX: F10.129 Alcohol abuse with intoxication, unspecified (principal); Y90.7 Blood alcohol level of 200-239 mg/100 ml
CPT/HCPCS: 36415; 80053; 80307; 83735; 85025; 99284

== ENCOUNTER 2024-12-22 16:18 | Emergency (ER) | payer OTHER, SELFPAY ==
[2024-12-22 16:30] VITALS: BP 148/72; PULSE 100; O2SAT 94
[2024-12-22 16:38] VITALS: BP 132/73; PULSE 64; RESP 20; TEMP 35.8; O2SAT 97; BMI 31.9
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
[2024-12-22 18:00] VITALS: BP 120/65; PULSE 86; RESP 16; TEMP 36.3; O2SAT 97
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
--- OUTSIDE RECORDS SUMMARY | 2024-12-22 19:25 | XMS_ITS | Referral Summary ---
Author Organization [facility] Address [address] [place] [address] Care Team Providers Care Loading Unit Operator Name Role Phone Tonia Nelson Primary Care Provider [phone] Allergies No known active allergies Medications acetaminophen [...] use disorder. Patient was recently detoxing at [facility] since 03/12. She reports that she has completed her detox. Denies withdrawal symptoms. [facility] reports that patient will need to go through admissions again to return to [facility], if they do not take patient back then [facility] will provide transportation back to patients home. [...] (03/18/2023 12:23 PM EDT): Patient presents from [facility] for persistent dysuria, suprapubic pain and urinary frequency despite outpatient antibiotics. Patient had a recent R sided ureteral stent placed at [facility]. At the ED, patient was hemodynamically stable. [...] Treatment Not on file Insurance [employer] [address] Advance Directives * Full Code (Latest Code Status on File) Date Activated Date Inactivated Comments 03/18/2023 11:53 AM 03/20/2023 4:21 PM * Presumed Full Code Date Activated Date Inactivated Comments 03/18/2023 5:08 AM 03/18/2023 11:53 AM Care Teams Loading Unit Operator Relationship Specialty Start Date End Date Tonia Nelson [address] [place] [address] PCP - General Internal Medicine 06/19/20
[2024-12-22 19:48] LABS: MANUAL DIFF FLAG NO
[2024-12-22 19:52] LABS: Basophils Percent Auto 0.4 % (0-2); Eosinophils Absolute Auto 0.1 X10*3/uL (0.0-0.4); Hematocrit 34.5 % (37.0-47.0); Hemoglobin 11.8 g/dl (12.0-16.0); Imm Gran Abs Auto 0.01 X10*3/uL (0.00-0.03); Imm Gran Pct Auto 0.1 % (0.0-0.4); Lymphocytes Absolute Auto 3.2 X10*3/uL (1.2-4.9); Lymphocytes Percent Auto 45.8 % (20-40); Mean Corpuscular HGB Conc 34.2 g/dl (31.0-35.0); Mean Corpuscular Hemoglobin 32.1 pg (27.0-33.0); Mean Corpuscular Volume 93.8 fL (80.0-98.0); Mean Platelet Volume 8.9 fL (9.4-12.3); Monocytes Absolute Auto 0.6 X10*3/uL (0.1-1.2); Monocytes Percent Auto 8.1 % (2-11); Neutrophils Absolute Auto 3.1 x10*3/uL (2.0-8.3); Neutrophils Percent Auto 44.6 % (45-73); Platelet Count 264 X10*3/uL (160-400); Red Blood Count 3.68 X10*6/uL (4.20-5.50); Red Cell Distribution Width 14.1 % (11.0-16.0); White Blood Count 7.1 X10*3/uL (4.8-10.8)
[2024-12-22 20:01] LABS: Anion Gap 19 (12-20); Blood Urea Nitrogen 24 mg/dL (9-16); Calcium 9.2 mg/dL (8.4-10.2); Carbon Dioxide 21 mmol/L (22-29); Chloride 109 mmol/L (96-108); Creatinine Clr Calc Pharmacy 51.5; Estimated Glomerular Filt Rate 47; Ethanol 146 mg/dL; Glucose Random 100 mg/dL (60-115); Potassium 3.2 mmol/L (3.3-5.1); Sodium 146 mmol/L (135-145)
[2024-12-22 23:49] VITALS: BP 139/84; PULSE 102; RESP 16; TEMP 36.4; O2SAT 96
[2024-12-23 01:44] VITALS: BP 137/79; PULSE 110; RESP 20; TEMP 36.6; O2SAT 96
== END 2024-12-23 01:46 | disposition home or self-care (01) ==
PROVIDERS: Emergency Provider Emergency Medicine Emergency Medical Services
DX: F10.10 Alcohol abuse, uncomplicated (principal); Y90.6 Blood alcohol level of 120-199 mg/100 ml
CPT/HCPCS: 36415; 80048; 80307; 85025; 99283; 99284

== ENCOUNTER 2024-12-26 12:49 | Emergency (ER) | payer OTHER, SELFPAY ==
[2024-12-26 12:57] VITALS: BP 142/80; PULSE 83; O2SAT 93
[2024-12-26 13:02] VITALS: BMI 33.2
--- NOTE | 2024-12-26 13:11 | ED_ITS ---
HPI - Psych General Chief Complaint: ETOH/Substance Use Stated Complaint: ETOH USE,SADNESS PER EMS Time Seen by Provider: 12/26/24 12:54 Source: patient and EMS Mode of arrival: EMS Limitations: no limitations History of Present Illness ED Provider: Perla Ca APRN HPI Narrative: 59 yo female with history of AUD, lumbar fusion and chronic back pain presents to the ER with complaints of lower back pain after a mechanical fall which occurred ?today. Landed on buttocks. Denies head strike or LOC. No radiation of pain. No associated numbness/tingling/weakness in LE/groin. No bowel or bladder incontinence. No fevers or chills. Of note patient reports she drank several nips today. No substance use. Looking for detox. No Si/HI Related Data Home Medications ?Medication ?Instructions ?Recorded ?Confirmed quetiapine 50 mg tablet 150 mg PO BEDTIME PRN Insomnia 06/01/23 10/07/23 venlafaxine 37.5 mg 75 mg PO DAILY 06/01/23 10/07/23 capsule,extended release 24 hr clonidine HCl 0.1 mg tablet 0.1 mg PO DAILY 05/18/24 05/18/24 loratadine 10 mg tablet 10 mg PO DAILY 05/18/24 05/18/24 melatonin 3 mg tablet 3 mg PO BEDTIME 05/18/24 05/18/24 naltrexone 50 mg tablet 50 mg PO DAILY 05/18/24 05/18/24 quetiapine 100 mg tablet 100 mg PO BEDTIME 05/18/24 05/18/24 Previous Rx's ?Medication ?Instructions ?Recorded cefuroxime axetil 250 mg tablet 250 mg PO BID 7 days #14 tabs 05/11/24 cefuroxime axetil 250 mg tablet 250 mg PO BID 7 days #14 tabs 05/29/24 sulfamethoxazole 800 1 tab PO Q12H 7 days #14 tabs 06/02/24 mg-trimethoprim 160 mg tablet (Bactrim DS) Allergies Allergy/AdvReac Type Severity Reaction Status Date / Time No Known Allergies Allergy Verified 12/26/24 13:03 [No Known Allergies*] Review of Systems Review of Systems: Yes all other systems are reviewed and are negative Constitutional: Constitutional: Reports no additional constitutional complaints, Denies body ache(s), Denies chills, Denies fever(s), Denies headache(s) and Denies weakness Eyes: Eyes: Reports no additional eye complaints and Denies change in vision ENT: Reports system reviewed and no additional complaints, except as documented, Denies dizziness, Denies headache(s), Denies nasal congestion, Denies nasal discharge and Denies neck pain Cardiovascular: Cardiovascular: Reports no additional cardiovascular complaints, Denies chest pain, Denies leg edema and Denies dyspnea Respiratory: Respiratory: Reports no additional respiratory complaints, Denies cough and Denies dyspnea Gastrointestinal: Gastrointestinal: Reports no additional gastrointestinal complaints, Denies abdominal pain, Denies diarrhea, Denies nausea and Denies vomiting Genitourinary: Genitourinary: Reports no additional female genitourinary complaints and Denies urinary incontinence Musculoskeletal: Musculoskeletal: Reports no additional musculoskeletal complaints, Reports back pain, Denies arthralgias, Denies joint swelling, Denies neck pain, Denies numbness and Denies tingling Integumentary/Breasts: Skin/Breast: Reports system reviewed and no additional complaints, except as docu and Denies rash Neurologic: Reports system reviewed and no additional complaints, except as documented, Denies Abnormal speech present, Denies dizziness, Denies headache(s), Denies numbness, Denies tingling and Denies weakness Psychiatric: Psychiatric: Denies homicidal ideation and Denies suicidal ideation [facility] Past Medical History Attestation statement: The following information was validated with the patient. Source: old records reviewed and nursing notes reviewed Medical History Numbness of left hand Bacteremia Hydroureteronephrosis Rash ETOH abuse TBI (traumatic brain injury) Mood disorder as late effect of traumatic brain injury Depression Surgical History Hx of cystoscopy Social History Social History Household Members: Unknown / Unable to assess Household Members Other:: Reports has been couch surfing. Housing: Apartment Alcohol intake: current Alcohol intake frequency: 3 or more drinks per day Alcohol type: hard liquor Comment: Pt ambulates independently with no apparent limitations. 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 Sexual orientation: Straight/Heterosexual Physical Exam Vital Signs: Vital Signs: Last Vital Signs Temp 98 F 12/26/24 16:54 Pulse 88 12/26/24 16:54 Resp 18 12/26/24 16:54 BP 107/53 L 12/26/24 16:54 Pulse Ox 94 12/26/24 16:54 O2 Del Method Room Air 12/26/24 16:54 BMI result Body Mass Index 33.2 Const: General: cooperative, healthy appearing, comfortable and no acute distress Orientation/consciousness: patient oriented x3 Limitations: no limitations HEENT: Head: Yes normal to inspection Ears: hearing grossly normal bilaterally General nose exam: Normal external nose present Face and sinus: Yes normal facial exam Mouth: Normal oral and palatal mucosa present Throat: Yes posterior oropharynx normal Eyes: General: appearance normal, both eyes and all related structures Pupils: Equal, round and reactive pupils present Neck: Neck: Yes normal visual inspection Chest: Chest palpation & inspection: normal inspection of the chest Resp: Effort & Inspection: normal respiratory effort Auscultation: clear to auscultation bilaterally Cardio: Rate: regular rate Rhythm: regular rhythm Peripheral pulses: Peripheral pulses 2+ throughout GI: Inspection: Yes normal to inspection Palpation (GI): Soft to palpation and nontender Auscultation: normal bowel sounds : General: Yes no CVA tenderness Back/Spine/Pelvis: Other: lumbar TTP centrally with no step offs or deformities Back: no CVA tenderness Thoracic/Lumbar Spine: thoracic and lumbar spine normal to inspection Skin: General skin exam: no rashes or lesions noted Neuro: General: patient oriented x3, moves all extremities, no focal motor deficits and normal sensation to monofilament Cranial nerves: Yes CN's II-XII intact bilaterally, Yes Equal, round and reactive pupils present, Yes Bilaterally intact EOM present, Yes Nystagmus not present, Yes Normal facial strength present and Yes Midline tongue present Cognition (Neuro): normal cognition Speech: No Abnormal speech present Motor exam (neuro): 5/5 motor strength present throughout Sensory Exam: Normal double simultaneous stimulation for sensation Extrem: General: Yes normal to inspection, Yes no pedal edema and Yes no calf tenderness Course Course Course Narrative: 1330-Patient declined x-rays Reevaluation(s) Reevaluation #1: 1700-patient declined urine testing. Does not want to be seen by recovery. She is up and ambulatory with a steady gait. She was able to tolerate PO. She is clinically stable. Reviewed worrisome signs/symptoms with the patient and when to seek additional care. Comfortable with discharge home. Medications Administered Discontinued Medications Generic Name Dose Route Start Last Admin Trade Name Freq PRN Reason Stop Dose Admin Acetaminophen 975 mg 12/26/24 13:23 12/26/24 13:37 Acetaminophen 325 Mg Tablet PO 12/26/24 13:24 975 mg ONCE ONE Administration Medical Decision Making Medical Decision Making [facility] Narrative: 59 yo female with history of AUD, lumbar fusion and chronic back pain presents to the ER with complaints of lower back pain after a mechanical fall which occurred ?today. Landed on buttocks. Denies head strike or LOC. No radiation of pain. No associated numbness/tingling/weakness in LE/groin. No bowel or bladder incontinence. No fevers or chills. Of note patient reports she drank several nips today. No substance use. Looking for detox. No Si/HI Exam patient has tenderness the lumbar mid spine normal step-offs deformities. Normal neurological exam with no focal deficits Will obtain x-rays, UA Patient also asking to speak to recovery. No reports of SI or HI. No need for patient to see crisis but will order a consult for recovery Differential Diagnosis Differential Diagnoses: The differential diagnosis associated with the presentation includes Alcohol use disorder Lumbar strain, UTI, pyelonephritis, renal colic Low suspicion for AAA with gradual onset of symptoms in the setting of tract, low suspicion for epidural abscess with no history of IV drug abuse, no neurological deficits or red flag symptoms, no fever, no red flag symptoms Low suspicion for malignancy with no red flag symptoms Low suspicion for cord compression with no neurological deficits or red flag symptoms Admission/Observation Consideration of admission/observation: Escalation of care including admission/observation considered Lab Data [facility] Lab Attestation statement: I reviewed the patient's lab results. Independent Interpretation I performed an independent interpretation of an: Plain X-Ray Radiology Impression Discussion of test interpretation with radiology: I have reviewed the radiologist's reading. Independent Historian Clinical information obtained from an independent historian. History obtained from or confirmed by: EMS Discharge Plan Discharge Clinical Impression: Alcoholic intoxication Patient Disposition: Home, Self-Care Instructions: Alcohol Intoxication (ED) Additional Instructions: You were offered recovery resources but you declined this Your also complaining of some back pain and concern for urinary tract infection but you declined x-rays and urine testing You are welcome to return anytime Prescriptions: No Action clonidine HCl 0.1 mg tablet 0.1 mg PO DAILY naltrexone 50 mg tablet 50 mg PO DAILY melatonin 3 mg tablet 3 mg PO BEDTIME quetiapine 100 mg tablet 100 mg PO BEDTIME loratadine 10 mg tablet 10 mg PO DAILY cefuroxime axetil 250 mg tablet 250 mg PO BID 7 Days Qty: 14 0RF sulfamethoxazole-trimethoprim [Bactrim DS] 800-160 mg tablet 1 tab PO Q12H 7 Days Qty: 14 0RF venlafaxine 37.5 mg capsule,extended release 24hr 75 mg PO DAILY quetiapine 50 mg tablet 150 mg PO BEDTIME PRN (Reason: Insomnia) cefuroxime axetil 250 mg tablet 250 mg PO BID 7 Days Qty: 14 0RF Referrals: Shane Reina PA-C [Primary Care Provider] - 1 week Interventions: ED Discharge Assessment Last Done: 12/26/24 16:54 Discharge Date/Time: 12/26/24 16:55 Print Language: Malay
--- NOTE | 2024-12-26 13:12 | PC.NURSE ---
Security at bedside to complete safety check. Patient denies SI/Hi. Security removed brown bag containing etoh.
--- NOTE | 2024-12-26 13:17 | PC.NURSE ---
Security locked ETOH in [facility]
[2024-12-26] MEDS: Acetaminophen 325 MG TABLET 975 MG PO (13:37)
[2024-12-26 15:06] VITALS: BP 107/53; PULSE 88; RESP 18; TEMP 36.6; O2SAT 94
--- NOTE | 2024-12-26 15:36 | MHC.RECOVRN ---
Approached pt to discuss ongoing alcohol use and her desire for admission to [facility] (detox). Pt with eyes closed the entire time, asking to talk later and that she is not sure yet in regards to whether she would like to go to [facility] (detox). Pt will be reproached tomorrow.
[2024-12-26 16:54] VITALS: BP 107/53; PULSE 88; RESP 18; TEMP 36.6; O2SAT 94
== END 2024-12-26 16:55 | disposition home or self-care (01) ==
PROVIDERS: Emergency Provider Emergency Medicine; PCP Physician Assistant
DX: M54.50 Low back pain, unspecified (principal); F10.129 Alcohol abuse with intoxication, unspecified; Y90.9 Presence of alcohol in blood, level not specified; Z79.899 Other long term (current) drug therapy
CPT/HCPCS: 99283; 99284

== ENCOUNTER 2024-12-26 22:14 | Emergency (ER) | payer OTHER, SELFPAY ==
[2024-12-26 22:21] VITALS: BP 123/72; PULSE 83; RESP 20; TEMP 36.4; O2SAT 96; BMI 31.2
[2024-12-26 22:55] LABS: Basophils Percent Auto 0.4 % (0-2); Eosinophils Absolute Auto 0.2 X10*3/uL (0.0-0.4); Eosinophils Percent Auto 2.2 % (0-4); Hemoglobin 13.1 g/dl (12.0-16.0); Imm Gran Abs Auto 0.01 X10*3/uL (0.00-0.03); Imm Gran Pct Auto 0.1 % (0.0-0.4); Lymphocytes Absolute Auto 5.1 X10*3/uL (1.2-4.9); MANUAL DIFF FLAG SCAN; Mean Corpuscular HGB Conc 34.5 g/dl (31.0-35.0); Mean Corpuscular Hemoglobin 31.7 pg (27.0-33.0); Mean Platelet Volume 8.9 fL (9.4-12.3); Monocytes Absolute Auto 0.6 X10*3/uL (0.1-1.2); Monocytes Percent Auto 7.7 % (2-11); Neutrophils Absolute Auto 1.5 x10*3/uL (2.0-8.3); Neutrophils Percent Auto 20.6 % (45-73); Platelet Count 331 X10*3/uL (160-400); Red Blood Count 4.13 X10*6/uL (4.20-5.50); Red Cell Distribution Width 13.5 % (11.0-16.0); SCAN SMEAR FLAG 1; White Blood Count 7.4 X10*3/uL (4.8-10.8)
[2024-12-26 22:59] VITALS: BP 119/66; PULSE 83; RESP 16; TEMP 36.8; O2SAT 95
[2024-12-26 23:08] LABS: Alanine Aminotransferase 13 U/L (0-31); Albumin Level 4.1 g/dL (3.5-5.0); Alkaline Phosphatase 76 U/L (39-117); Anion Gap 17 (12-20); Aspartate Amino Transferase 23 U/L (5-31); Bilirubin Direct < 0.2 mg/dL (0.0-0.5); Bilirubin Total 0.2 mg/dL (0.0-1.0); Blood Urea Nitrogen 17 mg/dL (9-16); Calcium 8.9 mg/dL (8.4-10.2); Carbon Dioxide 23 mmol/L (22-29); Chloride 109 mmol/L (96-108); Creatinine Clr Calc Pharmacy 85.3; Estimated Glomerular Filt Rate > 60; Ethanol 333 mg/dL; Glucose Random 96 mg/dL (60-115); Magnesium 2.1 mg/dL (1.6-2.6); Potassium 3.8 mmol/L (3.3-5.1); Sodium 145 mmol/L (135-145); Total Protein 7.6 g/dL (6.5-8.0)
[2024-12-26 23:21] LABS: SLIDE REVIEW VERIFIED
--- NOTE | 2024-12-26 23:28 | ED_ITS ---
HPI - Alcohol General Chief Complaint: ETOH/Substance Use Stated Complaint: withdrawals Time Seen by Provider: 12/26/24 22:43 Source: patient and EMS Mode of arrival: EMS Limitations: no limitations History of Present Illness ED Provider: Dr. Meron Corea HPI narrative: Patient comes to the emergency room complaining of alcohol intoxication and seeking detox. Patient was discharged from the hospital earlier today. Patient denies any injuries, denies SI or HI Related Data Home Medications ?Medication ?Instructions ?Recorded ?Confirmed quetiapine 50 mg tablet 150 mg PO BEDTIME PRN Insomnia 06/01/23 10/07/23 venlafaxine 37.5 mg 75 mg PO DAILY 06/01/23 10/07/23 capsule,extended release 24 hr clonidine HCl 0.1 mg tablet 0.1 mg PO DAILY 05/18/24 05/18/24 loratadine 10 mg tablet 10 mg PO DAILY 05/18/24 05/18/24 melatonin 3 mg tablet 3 mg PO BEDTIME 05/18/24 05/18/24 naltrexone 50 mg tablet 50 mg PO DAILY 05/18/24 05/18/24 quetiapine 100 mg tablet 100 mg PO BEDTIME 05/18/24 05/18/24 Previous Rx's ?Medication ?Instructions ?Recorded cefuroxime axetil 250 mg tablet 250 mg PO BID 7 days #14 tabs 05/11/24 cefuroxime axetil 250 mg tablet 250 mg PO BID 7 days #14 tabs 05/29/24 sulfamethoxazole 800 1 tab PO Q12H 7 days #14 tabs 06/02/24 mg-trimethoprim 160 mg tablet (Bactrim DS) Allergies Allergy/AdvReac Type Severity Reaction Status Date / Time No Known Allergies Allergy Verified 12/26/24 22:23 [No Known Allergies*] Review of Systems 2 Review of Systems: Constitutional : No Weight loss, No Fever, No Chills, No Night Sweats, No Fatigue, No Malaise ENT/Mouth : No Hearing loss, No Ear Pain, No Nasal Congestion, No Sinus Pain, No Hoarseness, No sore throat, No Rhinorrhea, No Swallowing Difficulty Eyes: No Eye Pain, No Swelling, No Redness, No Foreign Body, No Discharge, No Vision Changes Cardiovascular : No Chest Pain, No SOB, No Dyspnea on Exertion, No Orthopnea, No Edema, No Palpitations Respiratory : No Cough, No Sputum, No Wheezing, No Smoke Exposure, No Dyspnea Gastrointestinal : No Nausea, No Vomiting, No Diarrhea, No Constipation, No abdominal Pain, No Hematochezia, No Melena Genitourinary : no irregular bleeding, No Dysuria, No Urinary Frequency, No Hematuria, No Urinary Incontinence, No Urgency, No Flank Pain, No Urinary Flow Changes, No Hesitancy Musculoskeletal : No joint pain, No Myalgias, No Joint Swelling Skin : No Skin Lesions, No rash Neuro : No Weakness, No Numbness, No Paresthesias, No Loss of Consciousness, No Dizziness, No Headache Psych : No Anxiety/Panic, No Depression, No SI/HI/AH/VH, admits to alcohol abuse and dependence, requesting detox Heme/Lymph: No Bruising, No Bleeding,No Lymphadenopathy Endocrine : No Polyuria, No Polydipsia, No Temperature Intolerance PMFSH Past Medical History Medical History Numbness of left hand Bacteremia Hydroureteronephrosis Rash ETOH abuse TBI (traumatic brain injury) Mood disorder as late effect of traumatic brain injury Depression Surgical History Hx of cystoscopy Social History Social History Household Members: Unknown / Unable to assess Household Members Other:: Reports has been Alter-G surfing. Housing: Apartment Alcohol intake: current Alcohol intake frequency: 3 or more drinks per day Alcohol type: hard liquor Comment: Pt ambulates independently with no apparent limitations. 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 Oriented X3. No acute distress. Slightly intoxicated, able to have a coherent conversation Eyes: Pupils equal, round and reactive to light. ENT: Pharynx normal. Neck: Normal inspection. Neck supple. No lymph nodes noted. No crepitus CVS: Normal heart rate and rhythm. Pulses normal. Normal S1 and S2 Respiratory: No respiratory distress. Breath sounds normal. No Wheezing. No rales Abdomen: Soft and nontender. No rigidity. No distention. Skin: Skin warm and dry. Normal skin color. Normal skin turgor. Extremities: No lower extremity edema. No Lacerations. No Rash Neuro: Oriented X 3. No motor deficit. No sensory deficit. Moving all extremities. No slurred speech. CN 2 through 12 grossly intact Psych: calm, cooperative, normal affect Course Course Course Narrative: Patient requesting detox, denies any falls or injuries Denies SI or HI Section 12 not indicated at this time Reevaluation(s) Reevaluation #1: Time: 07:41 Date: 12/27/24 Provider: Priscilla Rucker DO Physician observation ended at 741am. Patient sober and wants to go home, at this time stable for DC, no SI/HI. refuses SUDE. Medical Decision Making Medical Decision Making [facility] Narrative: My interpretation of labs: No significant abnormality in patient's hematology and chemistry ETOH 333 Care team consult pending Physician observation started at 23:00 Differential Diagnosis Differential Diagnoses: The differential diagnosis associated with the presentation includes (Patient is under physician observation waiting to be seen by the care team to determine patient's disposition) Lab Data 12/26/24 22:49 12/26/24 22:49 Labs: Lab Results 12/26/24 Range/Units 22:49 WBC 7.4 (4.8-10.8) X10*3/uL RBC 4.13 L (4.20-5.50) X10*6/uL Hgb 13.1 (12.0-16.0) g/dl Hct 38.0 (37.0-47.0) % MCV 92.0 (80.0-98.0) fL MCH 31.7 (27.0-33.0) pg MCHC 34.5 (31.0-35.0) g/dl RDW 13.5 (11.0-16.0) % Plt Count 331 D (160-400) X10*3/uL MPV 8.9 L (9.4-12.3) fL Immature Gran % (Auto) 0.1 (0.0-0.4) % Neut % (Auto) 20.6 L (45-73) % Lymph % (Auto) 69.0 H (20-40) % [place] % (Auto) 7.7 (2-11) % Eos % (Auto) 2.2 (0-4) % Baso % (Auto) 0.4 (0-2) % Lymph # (Auto) 5.1 H (1.2-4.9) X10*3/uL [place] # (Auto) 0.6 (0.1-1.2) X10*3/uL Eos # (Auto) 0.2 (0.0-0.4) X10*3/uL Baso # (Auto) 0.0 (0.0-0.2) X10*3/uL Abs Immat Gran (auto) 0.01 (0.00-0.03) X10*3/uL Absolute Neuts (auto) 1.5 L (2.0-8.3) x10*3/uL Absolute Nucleated RBC 0.000 (0.0-0.012) X10*3/uL Nucleated RBC % (auto) 0.0 (0.0-0.2) /100WBC Smear Tech's Comments VERIFIED Sodium 145 (135-145) mmol/L Potassium 3.8 (3.3-5.1) mmol/L Chloride 109 H (96-108) mmol/L Carbon Dioxide 23 (22-29) mmol/L Anion Gap 17 (12-20) BUN 17 H (9-16) mg/dL Creatinine 0.64 (0.5-1.4) mg/dL Estim Creat Clear Calc 85.3 Estimated GFR > 60 Random Glucose 96 (60-115) mg/dL Calcium 8.9 (8.4-10.2) mg/dL Magnesium 2.1 (1.6-2.6) mg/dL Total Bilirubin 0.2 (0.0-1.0) mg/dL Direct Bilirubin < 0.2 (0.0-0.5) mg/dL AST 23 (5-31) U/L ALT 13 (0-31) U/L Alkaline Phosphatase 76 (39-117) U/L Total Protein 7.6 (6.5-8.0) g/dL Albumin 4.1 (3.5-5.0) g/dL Ethyl Alcohol 333 H* mg/dL Critical Care Time Critical Care Time Critical Care Time: Yes Total Critical Care Time: 35 Attestation: I have personally provided critical care time. Time includes review of lab data, radiology results, discussion with consultants, and monitoring for potential decompensation. Intervention performed as documented. Discharge Plan Discharge Clinical Impression: ETOH abuse Patient Disposition: Home, Self-Care Instructions: Alcohol Use Disorder (ED) Additional Instructions: Alcohol use disorder You were seen in the Emergency Department today for treatment of alcohol use disorder.? You may have been given medications to help with your withdrawal symptoms.? Please do not drink alcohol with them. This is very dangerous and can cause respiratory depression or other adverse reactions depending on the medication. If you would like to cut down or stop your alcohol use please consider calling our outpatient Addiction Treatment office:? [facility] (-F 9a-5p) [address] [place] [address] ? You have also been given a list of treatment providers in the area that can assist as well.? If you experience seizures, vomiting blood, black stools, falls, severe headache, chest pain, fevers, trouble breathing, hallucinations or any other concerns you need to call 911 or seek immediate care. Please stay hydrated. Prescriptions: No Action clonidine HCl 0.1 mg tablet 0.1 mg PO DAILY naltrexone 50 mg tablet 50 mg PO DAILY melatonin 3 mg tablet 3 mg PO BEDTIME quetiapine 100 mg tablet 100 mg PO BEDTIME loratadine 10 mg tablet 10 mg PO DAILY cefuroxime axetil 250 mg tablet 250 mg PO BID 7 Days Qty: 14 0RF sulfamethoxazole-trimethoprim [Bactrim DS] 800-160 mg tablet 1 tab PO Q12H 7 Days Qty: 14 0RF venlafaxine 37.5 mg capsule,extended release 24hr 75 mg PO DAILY quetiapine 50 mg tablet 150 mg PO BEDTIME PRN (Reason: Insomnia) cefuroxime axetil 250 mg tablet 250 mg PO BID 7 Days Qty: 14 0RF Interventions: ED Discharge Assessment Last Done: 12/27/24 07:41 Print Language: Stateless
[2024-12-27 06:19] VITALS: BP 123/70; PULSE 89; RESP 16; TEMP 36.9; O2SAT 96
[2024-12-27 07:41] VITALS: BP 123/70; PULSE 89; RESP 16; TEMP 36.9; O2SAT 96
--- NOTE | 2024-12-27 07:47 | PC.NURSE ---
pt getting herself dressed - denies SI/HI this am, reports no interest in speaking with CARE/recovery team for detox. pt states I gotta figure something else out, I can't keep coming back here
== END 2024-12-27 07:47 | disposition home or self-care (01) ==
PROVIDERS: Emergency Provider Emergency Medicine; PCP Physician Assistant
DX: F10.129 Alcohol abuse with intoxication, unspecified (principal); Y90.8 Blood alcohol level of 240 mg/100 ml or more; Z51.81 Encounter for therapeutic drug level monitoring; Z79.899 Other long term (current) drug therapy
CPT/HCPCS: 36415; 80048; 80076; 80307; 83735; 85025; 99284

== ENCOUNTER 2024-12-27 17:25 | Emergency (ER) | payer OTHER, SELFPAY ==
[2024-12-27 17:38] VITALS: BP 116/65; BP 128/62; PULSE 93; PULSE 98; RESP 18; TEMP 36.4; O2SAT 94; O2SAT 95; BMI 30.5
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
--- OUTSIDE RECORDS SUMMARY | 2024-12-27 18:04 | XMS_ITS | Referral Summary ---
Author Organization [facility] Address [address] [place] [address] Care Team Providers Care Plate Corrector Name Role Phone Tonia Nelson Primary Care Provider Allergies No known active allergies Medications acetaminophen [...] Patient was recently detoxing at [facility] since 03/12. She reports that she has completed her detox. Denies withdrawal symptoms. [facility] reports that patient will need to go through admissions again to return to [facility], if they do not take patient back then [facility] will provide transportation back to patients home. [...] PM EDT): Patient presents from [facility] for persistent dysuria, suprapubic pain and urinary frequency despite outpatient antibiotics. Patient had a recent R sided ureteral stent placed at [facility]. At the ED, patient was hemodynamically [...] 5:08 AM 03/18/2023 11:53 AM Care Teams Plate Corrector Relationship Specialty Start Date End Date Tonia Nelson [address] [place] [address] PCP - General Internal Medicine 06/19/20
--- NOTE | 2024-12-27 18:43 | ED.AMS ---
HPI - Altered Mental Status General Chief Complaint: Altered Mental Status Stated Complaint: ETOH PER EMS Time Seen by Provider: 12/27/24 17:32 History of Present Illness HPI narrative: 59-year-old female presents today with having grossly intoxicated. Patient has no complaints. Recently discharged from the hospital. Related Data Home Medications ?Medication ?Instructions ?Recorded ?Confirmed quetiapine 50 mg tablet 150 mg PO BEDTIME PRN Insomnia 06/01/23 10/07/23 venlafaxine 37.5 mg 75 mg PO DAILY 06/01/23 10/07/23 capsule,extended release 24 hr clonidine HCl 0.1 mg tablet 0.1 mg PO DAILY 05/18/24 05/18/24 loratadine 10 mg tablet 10 mg PO DAILY 05/18/24 05/18/24 melatonin 3 mg tablet 3 mg PO BEDTIME 05/18/24 05/18/24 naltrexone 50 mg tablet 50 mg PO DAILY 05/18/24 05/18/24 quetiapine 100 mg tablet 100 mg PO BEDTIME 05/18/24 05/18/24 Previous Rx's ?Medication ?Instructions ?Recorded cefuroxime axetil 250 mg tablet 250 mg PO BID 7 days #14 tabs 05/11/24 cefuroxime axetil 250 mg tablet 250 mg PO BID 7 days #14 tabs 05/29/24 sulfamethoxazole 800 1 tab PO Q12H 7 days #14 tabs 06/02/24 mg-trimethoprim 160 mg tablet (Bactrim DS) Allergies Allergy/AdvReac Type Severity Reaction Status Date / Time No Known Allergies Allergy Verified 12/27/24 17:47 [No Known Allergies*] Review of Systems Review of Systems: Positive EtOH Yes all other systems are reviewed and are negative PMFSH Past Medical History Attestation statement: The following information was validated with the patient. Medical History Numbness of left hand Bacteremia Hydroureteronephrosis Rash ETOH abuse TBI (traumatic brain injury) Mood disorder as late effect of traumatic brain injury Depression Surgical History Hx of cystoscopy Social History Social History Household Members: Unknown / Unable to assess Household Members Other:: Reports has been [place] surfing. Housing: Apartment Alcohol intake: current Alcohol intake frequency: 3 or more drinks per day Alcohol type: hard liquor Comment: Pt ambulates independently with no apparent limitations. 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 Oriented X3. No acute distress. Eyes: Pupils equal, round and reactive to light. ENT: Pharynx normal. Neck: Normal inspection. Neck supple. No lymph nodes noted. No crepitus CVS: Normal heart rate and rhythm. Pulses normal. Normal S1 and S2 Respiratory: No respiratory distress. Breath sounds normal. No Wheezing. No rales Abdomen: Soft and nontender. No rigidity. No distention. good BS x4 Skin: Skin warm and dry. Normal skin color. Normal skin turgor. Extremities: No lower extremity edema. Neurovascular intact to all extremities. No Lacerations. No Rash Neuro: Oriented X 3. No motor deficit. No sensory deficit. Moving all extermities. No slurred speech Medical Decision Making Medical Decision Making [facility] Narrative: Patient long history of ETOH. Not suicidal not homicidal. Monitor in the emergency department. Currently at approximately 20:30 is awake alert oriented. Ambulated well no distress. Clinically sober. Patient wants to go home. In stable condition. Differential Diagnosis Differential Diagnoses: The differential diagnosis associated with the presentation includes Alcohol intoxication Admission/Observation Consideration of admission/observation: Escalation of care including admission/observation considered Lab Data [facility] Lab Attestation statement: I reviewed the patient's lab results. Discharge Plan Discharge Clinical Impression: ETOH abuse Patient Disposition: Home, Self-Care Instructions: Abuse of Alcohol (DC) Prescriptions: No Action clonidine HCl 0.1 mg tablet 0.1 mg PO DAILY naltrexone 50 mg tablet 50 mg PO DAILY melatonin 3 mg tablet 3 mg PO BEDTIME quetiapine 100 mg tablet 100 mg PO BEDTIME loratadine 10 mg tablet 10 mg PO DAILY cefuroxime axetil 250 mg tablet 250 mg PO BID 7 Days Qty: 14 0RF sulfamethoxazole-trimethoprim [Bactrim DS] 800-160 mg tablet 1 tab PO Q12H 7 Days Qty: 14 0RF venlafaxine 37.5 mg capsule,extended release 24hr 75 mg PO DAILY quetiapine 50 mg tablet 150 mg PO BEDTIME PRN (Reason: Insomnia) cefuroxime axetil 250 mg tablet 250 mg PO BID 7 Days Qty: 14 0RF Referrals: Physician,Unknown J [Primary Care Provider] - 12/29/24 Print Language: Luxembourgish
[2024-12-27 20:00] VITALS: BP 125/72; PULSE 101; RESP 16; TEMP 36.8; O2SAT 94
[2024-12-27 20:37] VITALS: BP 125/72; PULSE 101; RESP 16; TEMP 36.8; O2SAT 94
== END 2024-12-27 20:43 | disposition home or self-care (01) ==
PROVIDERS: Emergency Provider Emergency Medicine Emergency Medical Services
DX: F10.129 Alcohol abuse with intoxication, unspecified (principal)
CPT/HCPCS: 99282; 99284

== ENCOUNTER 2024-12-28 09:20 | Emergency (ER) | payer OTHER, SELFPAY ==
[2024-12-28 09:28] VITALS: BP 145/82; PULSE 92; O2SAT 98
[2024-12-28 09:33] VITALS: BP 137/79; PULSE 91; RESP 17; TEMP 35.6; O2SAT 95; BMI 31.2
--- NOTE | 2024-12-28 09:55 | ED.ALCOHOL ---
HPI - Alcohol General Chief Complaint: ETOH/Substance Use Stated Complaint: PSYCH EVAL,ADMITS TO 10 RB JOSE NIPS PER EMS Time Seen by Provider: 12/28/24 09:28 History of Present Illness HPI narrative: Patient is a 59-year-old female presents to the ED multiple times for alcohol abuse. Was seen yesterday for the same. Presented today back to the ED. patient denies any suicidal homicidal ideation. Wants to talk to care team because her friend recently . Related Data Home Medications ?Medication ?Instructions ?Recorded ?Confirmed quetiapine 50 mg tablet 150 mg PO BEDTIME PRN Insomnia 06/01/23 10/07/23 venlafaxine 37.5 mg 75 mg PO DAILY 06/01/23 10/07/23 capsule,extended release 24 hr clonidine HCl 0.1 mg tablet 0.1 mg PO DAILY 05/18/24 05/18/24 loratadine 10 mg tablet 10 mg PO DAILY 05/18/24 05/18/24 melatonin 3 mg tablet 3 mg PO BEDTIME 05/18/24 05/18/24 naltrexone 50 mg tablet 50 mg PO DAILY 05/18/24 05/18/24 quetiapine 100 mg tablet 100 mg PO BEDTIME 05/18/24 05/18/24 Previous Rx's ?Medication ?Instructions ?Recorded cefuroxime axetil 250 mg tablet 250 mg PO BID 7 days #14 tabs 05/11/24 cefuroxime axetil 250 mg tablet 250 mg PO BID 7 days #14 tabs 05/29/24 sulfamethoxazole 800 1 tab PO Q12H 7 days #14 tabs 06/02/24 mg-trimethoprim 160 mg tablet (Bactrim DS) Allergies Allergy/AdvReac Type Severity Reaction Status Date / Time No Known Allergies Allergy Verified 12/28/24 09:36 [No Known Allergies*] Review of Systems Review of Systems: Yes all other systems are reviewed and are negative PMFSH Past Medical History Attestation statement: The following information was validated with the patient. Medical History Numbness of left hand Bacteremia Hydroureteronephrosis Rash ETOH abuse TBI (traumatic brain injury) Mood disorder as late effect of traumatic brain injury Depression Surgical History Hx of cystoscopy Social History Social History Household Members: Unknown / Unable to assess Household Members Other:: Reports has been couch surfing. Housing: Apartment Alcohol intake: current Alcohol intake frequency: 3 or more drinks per day Alcohol type: hard liquor Comment: Pt ambulates independently with no apparent limitations. 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 Oriented X3. No acute distress. Eyes: Pupils equal, round and reactive to light. ENT: Pharynx normal. Neck: Normal inspection. Neck supple. No lymph nodes noted. No crepitus CVS: Normal heart rate and rhythm. Pulses normal. Normal S1 and S2 Respiratory: No respiratory distress. Breath sounds normal. No Wheezing. No rales Abdomen: Soft and nontender. No rigidity. No distention. good BS x4 Skin: Skin warm and dry. Normal skin color. Normal skin turgor. Extremities: No lower extremity edema. Neurovascular intact to all extremities. No Lacerations. No Rash Neuro: Oriented X 3. No motor deficit. No sensory deficit. Moving all extermities. No slurred speech Medical Decision Making Medical Decision Making [facility]DM Narrative: Positive EtOH. Positive depression. No SI no HI at this time. However patient does want to talk to care team. Will get crisis eval. Patient no longer wants to see the care team. Not suicidal homicidal. Patient wants to leave. Significant history of EtOH. Explained to patient the need to stop. Patient states understanding Differential Diagnosis Differential Diagnoses: The differential diagnosis associated with the presentation includes Alcohol intoxication Admission/Observation Consideration of admission/observation: Escalation of care including admission/observation considered Lab Data MDM Lab Attestation statement: I reviewed the patient's lab results. 12/28/24 10:24 12/28/24 10:24 Labs: Lab Results 12/28/24 12/28/24 Range/Units 10:10 10:24 WBC 5.3 (4.8-10.8) X10*3/uL RBC 4.43 (4.20-5.50) X10*6/uL Hgb 13.9 (12.0-16.0) g/dl Hct 40.3 (37.0-47.0) % MCV 91.0 (80.0-98.0) fL MCH 31.4 (27.0-33.0) pg MCHC 34.5 (31.0-35.0) g/dl RDW 13.2 (11.0-16.0) % Plt Count 303 (160-400) X10*3/uL MPV 8.6 L (9.4-12.3) fL Immature Gran % (Auto) 0.2 (0.0-0.4) % Neut % (Auto) 36.3 L (45-73) % Lymph % (Auto) 51.9 H (20-40) % [place] % (Auto) 8.6 (2-11) % Eos % (Auto) 1.9 (0-4) % Baso % (Auto) 1.1 (0-2) % Lymph # (Auto) 2.7 (1.2-4.9) X10*3/uL [place] # (Auto) 0.5 (0.1-1.2) X10*3/uL Eos # (Auto) 0.1 (0.0-0.4) X10*3/uL Baso # (Auto) 0.1 (0.0-0.2) X10*3/uL Abs Immat Gran (auto) 0.01 (0.00-0.03) X10*3/uL Absolute Neuts (auto) 1.9 L (2.0-8.3) x10*3/uL Absolute Nucleated RBC 0.000 (0.0-0.012) X10*3/uL Nucleated RBC % (auto) 0.0 (0.0-0.2) /100WBC Sodium 144 (135-145) mmol/L Potassium 3.6 (3.3-5.1) mmol/L Chloride 104 (96-108) mmol/L Carbon Dioxide 28 (22-29) mmol/L Anion Gap 16 (12-20) BUN 19 H (9-16) mg/dL Creatinine 0.71 (0.5-1.4) mg/dL Estim Creat Clear Calc 76.9 Estimated GFR > 60 Random Glucose 109 (60-115) mg/dL Calcium 9.1 (8.4-10.2) mg/dL Urine Color Dark Yellow Urine Appearance Clear Urine pH 6.0 (5.0-9.0) Ur Specific [place] 1.020 (1.005-1.025) Urine Protein 30 (1+) H (Neg-Trace) mg/dL Urine Glucose (UA) Negative (Negative) mg/dL Urine Ketones Trace (Negative) mg/dL Urine Blood Negative (Negative) Urine Nitrite Negative (Negative) Ur Leukocyte Esterase Moderate (2+) H (Negative) Urine RBC 0-2 (0-2) /HPF Urine WBC 11-20 H (0-5) /HPF Ur Squamous Epith Cells 11-20 (0-2) /HPF Urine Bacteria 2+ (None Seen) Hyaline Casts 3-5 (0-2) /LPF Urine Opiates Screen Not Detected (Not Detect) Ur Buprenorphine Scrn Not Detected (Not Detect) ng/mL Ur Oxycodone Screen Not Detected (Not Detect) ng/mL Urine Methadone Screen Not Detected (Not Detect) ng/mL Urine Fentanyl Screen Not Detected (Not Detect) Ur Barbiturates Screen Not Detected (Not Detect) Ur Phencyclidine Scrn Not Detected (Not Detect) Ur Amphetamines Screen Not Detected (Not Detect) U Benzodiazepines Scrn POSITIVE H (Not Detect) Urine Cocaine Screen Not Detected (Not Detect) U Marijuana (THC) Screen Not Detected (Not Detect) Ethyl Alcohol 307 H* mg/dL Chronic Conditions Long history of alcohol abuse Social Determinants Patient?s care significantly limited by Social Determinants of Health including: Alcoholism and drug addiction in family Discharge Plan Discharge Clinical Impression: ETOH abuse Patient Disposition: Home, Self-Care Instructions: Alcohol Use Disorder (ED) Prescriptions: No Action clonidine HCl 0.1 mg tablet 0.1 mg PO DAILY naltrexone 50 mg tablet 50 mg PO DAILY melatonin 3 mg tablet 3 mg PO BEDTIME quetiapine 100 mg tablet 100 mg PO BEDTIME loratadine 10 mg tablet 10 mg PO DAILY cefuroxime axetil 250 mg tablet 250 mg PO BID 7 Days Qty: 14 0RF sulfamethoxazole-trimethoprim [Bactrim DS] 800-160 mg tablet 1 tab PO Q12H 7 Days Qty: 14 0RF venlafaxine 37.5 mg capsule,extended release 24hr 75 mg PO DAILY quetiapine 50 mg tablet 150 mg PO BEDTIME PRN (Reason: Insomnia) cefuroxime axetil 250 mg tablet 250 mg PO BID 7 Days Qty: 14 0RF Referrals: Anirudh Caro MD [Primary Care Provider] - 12/30/24 Print Language: [place]inean
[2024-12-28 10:22] LABS: Appearance Urine Clear; Color Urine Dark Yellow; Glucose Urine UA Negative (Negative); Leukocyte Esterase Urine Moderate (2+) (Negative); Nitrite Urine Negative (Negative); UMIC TRIGGER UACC YES; Urine Blood Negative (Negative); Urine Ketones Trace mg/dL (Negative); Urine Protein 30 (1+) mg/dL (Neg-Trace)
[2024-12-28 10:27] LABS: Bacteria Urine 2+ (None Seen); RBC Urine 0-2 /HPF (0-2); UACC Culture Trigger YES
[2024-12-28 10:29] LABS: Basophils Absolute Auto 0.1 X10*3/uL (0.0-0.2); Basophils Percent Auto 1.1 % (0-2); Eosinophils Absolute Auto 0.1 X10*3/uL (0.0-0.4); Eosinophils Percent Auto 1.9 % (0-4); Hematocrit 40.3 % (37.0-47.0); Hemoglobin 13.9 g/dl (12.0-16.0); Imm Gran Abs Auto 0.01 X10*3/uL (0.00-0.03); Imm Gran Pct Auto 0.2 % (0.0-0.4); Lymphocytes Absolute Auto 2.7 X10*3/uL (1.2-4.9); Lymphocytes Percent Auto 51.9 % (20-40); MANUAL DIFF FLAG NO; Mean Corpuscular HGB Conc 34.5 g/dl (31.0-35.0); Mean Corpuscular Hemoglobin 31.4 pg (27.0-33.0); Mean Platelet Volume 8.6 fL (9.4-12.3); Monocytes Absolute Auto 0.5 X10*3/uL (0.1-1.2); Monocytes Percent Auto 8.6 % (2-11); Neutrophils Absolute Auto 1.9 x10*3/uL (2.0-8.3); Neutrophils Percent Auto 36.3 % (45-73); Platelet Count 303 X10*3/uL (160-400); Red Blood Count 4.43 X10*6/uL (4.20-5.50); Red Cell Distribution Width 13.2 % (11.0-16.0); White Blood Count 5.3 X10*3/uL (4.8-10.8)
[2024-12-28 10:33] LABS: Amphetamine Screen Urine Not Detected (Not Detect); Barbiturates, Urine Not Detected (Not Detect); Benzodiazepines Screen Urine POSITIVE (Not Detect); Buprenorphine Scr Not Detected (Not Detect); Cannabinoid Screen Urine Not Detected (Not Detect); Cocaine Screen Urine Not Detected (Not Detect); Fentanyl, urine Not Detected (Not Detect); Methadone Screen, Urine Not Detected (Not Detect); Opiate Screen Urine Not Detected (Not Detect); Oxycodone Screen Urine Not Detected (Not Detect); Phencyclidine Screen Urine Not Detected (Not Detect)
[2024-12-28 10:42] LABS: Anion Gap 16 (12-20); Blood Urea Nitrogen 19 mg/dL (9-16); Calcium 9.1 mg/dL (8.4-10.2); Carbon Dioxide 28 mmol/L (22-29); Chloride 104 mmol/L (96-108); Creatinine Clr Calc Pharmacy 76.9; Estimated Glomerular Filt Rate > 60; Ethanol 307 mg/dL; Glucose Random 109 mg/dL (60-115); Potassium 3.6 mmol/L (3.3-5.1); Sodium 144 mmol/L (135-145)
--- OUTSIDE RECORDS SUMMARY | 2024-12-28 10:46 | XMS_ITS | Referral Summary ---
Author Organization [facility] Address [address] [place] [address] Care Team Providers Care Assembly Line Leader Name Role Phone Tonia Nelson Primary Care Provider [phone] Allergies No known active allergies Medications acetaminophen [...] use disorder. Patient was recently detoxing at [facility] since 03/12. She reports that she has completed her detox. Denies withdrawal symptoms. [facility] reports that patient will need to go through admissions again to return to [facility], if they do not take patient back then [facility] will provide transportation back to patients home. [...] (03/18/2023 12:23 PM EDT): Patient presents from [facility] for persistent dysuria, suprapubic pain and urinary frequency despite outpatient antibiotics. Patient had a recent R sided ureteral stent placed at [facility]. At the ED, patient was hemodynamically [...] 5:08 AM 03/18/2023 11:53 AM Care Teams Assembly Line Leader Relationship Specialty Start Date End Date Tonia Nelson [address] [place] [address] PCP - General Internal Medicine 06/19/20
--- OUTSIDE RECORDS SUMMARY | 2024-12-28 10:46 | XMS_ITS | Clinical Summary ---
Author Organization [facility] Address [address] [place] [address] Care Team Providers Care Glass Block Bender Name Role Phone Tonia Nelson Primary Care Provider [phone] Allergies No known active allergies Medications acetaminophen [...] use disorder. Patient was recently detoxing at [facility] since 03/12. She reports that she has completed her detox. Denies withdrawal symptoms. [facility] reports that patient will need to go through admissions again to return to [facility], if they do not take patient back then [facility] will provide transportation back to patients [...] (03/18/2023 12:23 PM EDT): Patient presents from [facility] for persistent dysuria, suprapubic pain and urinary frequency despite outpatient antibiotics. Patient had a recent R sided ureteral stent placed at [facility]. At the ED, patient [...] 03/17/2023 4:08 PM EDT Plan of Treatment Health Maintenance Due Date Last Done Comments Cervical Cancer Screening 1963 Cologuard 1963 Colon Cancer Screening 1963 Colonoscopy 1963 FOBT / Fit Test 1963 HIV Screening 1963 HPV and Pap Smear 1963 Hepatitis C Screening 1963 Pap Smear 1963 Sigmoidoscopy 1963 DTaP,Tdap,and Td Vaccines (1 - Tdap) 11/08/1985 Mammogram 2003 Pneumococcal Vaccine: 50+ Ye ars (1 of 1 - PCV) 11/08/2013 Zoster Vaccines (1 of 2) 11/08/2013 COVID-19 Vaccine (1 - 2023-2 5 season) 2024 Alcohol/Substance Use Screening 08/25/2024 Depression Screening and Follow-Up 08/25/2024 Social Drivers of Health Pat ual Screening 08/25/2024 Influenza Vaccine (Season Ended) 2025 RSV Vaccine (60+ years old a nd patients) (1 - 1-dose 75+ series) 11/08/2038 Hepatitis B Vaccines Aged Out No long er eligible based on patient's age to complete this topic Insurance [facility] MEDICAID Advance Directives * Full Code (Latest Code Status on File) Date Activated Date Inactivated Comments 03/18/2023 11:53 AM 03/20/2023 4:21 PM * Presumed Full Code Date Activated Date Inactivated Comments 03/18/2023 5:08 AM 03/18/2023 11:53 AM Care Teams Glass Block Bender Relationship Specialty Start Date End Date Tonia Nelson [address] [place] [id number] PCP - General Internal Medicine 06/19/20
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
[2024-12-28 15:08] VITALS: BP 144/56; PULSE 78; RESP 18; TEMP 36.6; O2SAT 98
[2024-12-28 15:11] VITALS: BP 144/56; PULSE 78; RESP 18; TEMP 36.6; O2SAT 98
== END 2024-12-28 15:11 | disposition home or self-care (01) ==
PROVIDERS: Emergency Provider Emergency Medicine Emergency Medical Services; PCP Hospitalist
DX: F10.10 Alcohol abuse, uncomplicated (principal); Y90.8 Blood alcohol level of 240 mg/100 ml or more
CPT/HCPCS: 36415; 80048; 80307; 81001; 85025; 87086; 99284

== ENCOUNTER 2024-12-28 22:52 | Emergency (ER) | payer OTHER, SELFPAY ==
[2024-12-28 23:00] VITALS: BP 156/81; PULSE 103; O2SAT 96
[2024-12-28 23:13] VITALS: BP 141/77; PULSE 92; RESP 20; TEMP 36.9; O2SAT 94; BMI 31.2
--- OUTSIDE RECORDS SUMMARY | 2024-12-28 23:53 | XMS_ITS | Referral Summary ---
Author Organization [facility] Address [address] [place] [address] Care Team Providers Care High Man Name Role Phone Tonia Nelson Primary Care Provider [phone] Allergies No known active allergies Medications acetaminophen [...] Patient was recently detoxing at [facility] since 03/12. She reports that she has completed her detox. Denies withdrawal symptoms. [facility] reports that patient will need to go through admissions again to return to [facility], if they do not take patient back then [facility] will provide transportation back to [...] PM EDT): Patient presents from [facility] for persistent dysuria, suprapubic pain and urinary frequency despite outpatient antibiotics. Patient had a recent R sided ureteral stent placed at [facility]. At the ED, patient was hemodynamically stable. [...] 5:08 AM 03/18/2023 11:53 AM Care Teams High Man Relationship Specialty Start Date End Date Tonia Nelson [address] [place] [address] PCP - General Internal Medicine 06/19/20
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
--- NOTE | 2024-12-29 01:36 | ED_ITS ---
HPI - General Adult General Chief complaint: ETOH/Substance Use Stated complaint: etoh Time Seen by Provider: 12/29/24 01:11 Source: patient, RN notes reviewed and old records reviewed Mode of arrival: EMS Limitations: no limitations History of Present Illness ED Provider: Temi HPI narrative: 59-year-old female presents for evaluation of alcohol abuse. This is the patient's 4th day in a row for similar complaints She reports that she has been drinking in excess as her best friend recently to cancer. The patient reports drinking about 10 nips of alcohol daily. She denies any depression or suicidal ideation. She reports that she is currently living with her son and [place] She reports that she is interested in detox Her last drink was just prior to arrival Related Data Home Medications ?Medication ?Instructions ?Recorded ?Confirmed quetiapine 50 mg tablet 150 mg PO BEDTIME PRN Insomnia 06/01/23 10/07/23 venlafaxine 37.5 mg 75 mg PO DAILY 06/01/23 10/07/23 capsule,extended release 24 hr clonidine HCl 0.1 mg tablet 0.1 mg PO DAILY 05/18/24 05/18/24 loratadine 10 mg tablet 10 mg PO DAILY 05/18/24 05/18/24 melatonin 3 mg tablet 3 mg PO BEDTIME 05/18/24 05/18/24 naltrexone 50 mg tablet 50 mg PO DAILY 05/18/24 05/18/24 quetiapine 100 mg tablet 100 mg PO BEDTIME 05/18/24 05/18/24 Previous Rx's ?Medication ?Instructions ?Recorded cefuroxime axetil 250 mg tablet 250 mg PO BID 7 days #14 tabs 05/11/24 cefuroxime axetil 250 mg tablet 250 mg PO BID 7 days #14 tabs 05/29/24 sulfamethoxazole 800 1 tab PO Q12H 7 days #14 tabs 06/02/24 mg-trimethoprim 160 mg tablet (Bactrim DS) Allergies Allergy/AdvReac Type Severity Reaction Status Date / Time No Known Allergies Allergy Verified 12/28/24 23:14 [No Known Allergies*] Review of Systems Constitutional: Constitutional: Denies body ache(s), Denies chills and Denies fever(s) Eyes: Eyes: Denies blurry vision ENT: Denies vertigo and Denies dizziness Cardiovascular: Cardiovascular: Denies chest pain Respiratory: Respiratory: Denies cough Gastrointestinal: Gastrointestinal: Denies abdominal pain, Denies nausea and Denies vomiting Musculoskeletal: Musculoskeletal: Denies back pain Neurologic: Denies vertigo and Denies dizziness PMFSH Past Medical History Medical History Numbness of left hand Bacteremia Hydroureteronephrosis Rash ETOH abuse TBI (traumatic brain injury) Mood disorder as late effect of traumatic brain injury Depression Surgical History Hx of cystoscopy Social History Social History Household Members: Unknown / Unable to assess Household Members Other:: Reports has been [employer] surfing. Housing: Apartment Alcohol intake: current Alcohol intake frequency: 3 or more drinks per day Alcohol type: hard liquor Comment: Pt ambulates independently with no apparent limitations. 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 Sexual orientation: Straight/Heterosexual Physical Exam ED Vital Signs: Vital Signs - 24 hr 12/28/24 23:13 12/29/24 06:24 Temperature 98.5 F 98.4 F Pulse Rate 92 104 H Respiratory Rate 20 16 Blood Pressure 141/77 H 132/74 Pulse Oximetry 94 96 Oxygen Delivery Method Room Air Room Air BMI result Body Mass Index 31.2 Const General: healthy appearing, comfortable, no acute distress, alert and awake Nutritional Appearance: well nourished Orientation/consciousness: patient oriented x3 HENMT Head: Yes normocephalic and Yes atraumatic Eyes Eyelids: Yes eyelids normal Conjunctivae: conjunctivae normal Sclerae: sclerae normal Corneas: corneas normal Pupils: Equal, round and reactive pupils present EOM: EOMs intact bilaterally Neck Neck: Yes full ROM Resp Effort & Inspection: normal respiratory effort, able to speak in complete sentences, no audible wheezes and not labored Auscultation: clear to auscultation bilaterally Cardio Rate: regular rate Rhythm: regular rhythm GI Inspection: No distended Palpation (GI): Soft to palpation, not firm, nontender, no guarding and not rigid Skin General skin exam: no rashes or lesions noted and elasticity normal Neuro General: patient oriented x3 Cranial nerves: Yes Equal, round and reactive pupils present and Yes Bilaterally intact EOM present Cognition (Neuro): normal cognition Extrem Other: Moving all extremities well without any obvious deformities Course Reevaluation(s) Reevaluation #1: The patient was signed out to me by the previous emergency physician. The patient is a 59-year-old woman who has been having multiple ER visits to the emergency room recently for alcohol intoxication. Today the patient seems potentially willing to consider detox. She seems medically clear. During the overnight shift she was given a single dose of 2 mg of lorazepam orally. She was otherwise medically stable. The plan will be for a recovery team consult this morning for consideration of detox. The patient will be signed out to the oncoming emergency physician this morning. Time: 08:06 Reevaluation #2: Time: 11:32 Date: 12/29/24 Provider: APOLLO Beverly Physician observation ended at 1132. Patient has been evaluated by care team/recovery. Patient has a bed at [facility] detox facility. Patient is agreeable to going to detox. Care team will be coordinating a Lyft that will transfer her to [facility] today. She continues to deny any SI or HI. She is ambulating with steady gait. She is medically cleared for transport to detox facility. Medications Administered Discontinued Medications Generic Name Dose Route Start Last Admin Trade Name Freq PRN Reason Stop Dose Admin Lorazepam 2 mg 12/29/24 06:27 12/29/24 06:31 Lorazepam 1 Mg Tablet PO 12/29/24 06:28 2 mg ONCE ONE Administration Medical Decision Making Medical Decision Making MDM Narrative: 59-year-old female presents for evaluation of alcohol abuse and seeking detox. She is not depressed or suicidal. Given that she had labs less than 24 hours ago, we will hold off on repeat labs. Patient placed in physician observation status pending addiction medicine consult Differential Diagnosis Differential Diagnoses: The differential diagnosis associated with the presentation includes Alcohol abuse Substance abuse Alcohol withdrawal Depression Discharge Plan Discharge Clinical Impression: ETOH abuse Patient Disposition: Home, Self-Care Instructions: Abuse of Alcohol (ED) Additional Instructions: Per care team, you have a bed at [facility]. They are providing you with a lyft today. You are agreeable to going to detox. You will be transported there via Lyft that we are providing you today. You may also follow up with outpatient Addiction Treatment office:? [facility] (M-F 9a-5p) [address] [place] [address] [address] ? You have also been given a list of treatment providers in the area that can assist as well.? If you experience seizures, vomiting blood, black stools, falls, severe headache, chest pain, fevers, trouble breathing, hallucinations or any other concerns you need to call 911 or seek immediate care. Please stay hydrated. Prescriptions: No Action clonidine HCl 0.1 mg tablet 0.1 mg PO DAILY naltrexone 50 mg tablet 50 mg PO DAILY melatonin 3 mg tablet 3 mg PO BEDTIME quetiapine 100 mg tablet 100 mg PO BEDTIME loratadine 10 mg tablet 10 mg PO DAILY cefuroxime axetil 250 mg tablet 250 mg PO BID 7 Days Qty: 14 0RF sulfamethoxazole-trimethoprim [Bactrim DS] 800-160 mg tablet 1 tab PO Q12H 7 Days Qty: 14 0RF venlafaxine 37.5 mg capsule,extended release 24hr 75 mg PO DAILY quetiapine 50 mg tablet 150 mg PO BEDTIME PRN (Reason: Insomnia) cefuroxime axetil 250 mg tablet 250 mg PO BID 7 Days Qty: 14 0RF Referrals: [facility] [Provider Group] Print Language: Kiswahili
[2024-12-29 06:24] VITALS: BP 132/74; PULSE 104; RESP 16; TEMP 36.9; O2SAT 96
--- NOTE | 2024-12-29 06:25 | PC.NURSE ---
MD Jim made aware ciwa score 1, HR 104. pt reports sx consistent with withdrawal. per MD will give 2mg PO dose Ativan. diet ordered. pt resting comfortably.
[2024-12-29] MEDS: LORazepam 1 MG TABLET 2 MG PO (06:31)
--- NOTE | 2024-12-29 06:49 | MHC.EDTECH ---
pt changed over upon arrival, belongings remain at .bedside
--- NOTE | 2024-12-29 08:27 | PC.NURSE ---
Resumed care of patient at 0700, she is currently resting comfortably, awaiting detox at this time.
--- NOTE | 2024-12-29 11:30 | PC.NURSE ---
jeanie Sims from CARE team, no inhouse recovery today to coordinate detox placement. patient agreeable for a Lyft to self present to [facility]. provider notified of plan to discharge, CARE team coordinating Lyft service.
[2024-12-29 11:38] VITALS: BP 132/74; PULSE 104; RESP 16; TEMP 36.9; O2SAT 96
== END 2024-12-29 11:38 | disposition home or self-care (01) ==
PROVIDERS: Emergency Provider Emergency Medicine
DX: F10.10 Alcohol abuse, uncomplicated (principal); Y90.9 Presence of alcohol in blood, level not specified
CPT/HCPCS: 99283; 99284

== ENCOUNTER 2024-12-29 16:32 | Emergency (ER) | payer OTHER, SELFPAY ==
[2024-12-29 16:39] VITALS: BP 148/80; PULSE 100; O2SAT 96
--- NOTE | 2024-12-29 16:49 | ED_ITS ---
HPI - General Adult General Chief complaint: ETOH/Substance Use Stated complaint: ETOH Time Seen by Provider: 12/29/24 16:49 Source: patient and EMS Mode of arrival: EMS Limitations: no limitations History of Present Illness ED Provider: Ariana Espino PA-C HPI narrative: Patient is a 59 year old assigned female at with a history of alcohol abuse presenting to the emergency department today with alcohol intoxication and requesting detox. Patient states that she was sober a handful of months and relapsed. Patient states that ever since then, nothing has been going right and she wants help getting sober again. Patient denies any thoughts of hurting herself or others. Patient denies any dizziness, lightheadedness, abdominal pain, nausea, vomiting, fever, chills, blurry vision, double vision, loss of vision, chest pain, difficulty breathing, shortness of breath, back pain, night sweats, pain with urination, increased urinary frequency, increased urinary urgency, blood in her urine or stool, syncope or a near syncopal episode, recent trauma or falls, bowel incontinence, bladder incontinence, or any other complaints at this time. Relieving factors: none Exacerbating factors: none Related Data Home Medications ?Medication ?Instructions ?Recorded ?Confirmed quetiapine 50 mg tablet 150 mg PO BEDTIME PRN Insomnia 06/01/23 10/07/23 venlafaxine 37.5 mg 75 mg PO DAILY 06/01/23 10/07/23 capsule,extended release 24 hr clonidine HCl 0.1 mg tablet 0.1 mg PO DAILY 05/18/24 05/18/24 loratadine 10 mg tablet 10 mg PO DAILY 05/18/24 05/18/24 melatonin 3 mg tablet 3 mg PO BEDTIME 05/18/24 05/18/24 naltrexone 50 mg tablet 50 mg PO DAILY 05/18/24 05/18/24 quetiapine 100 mg tablet 100 mg PO BEDTIME 05/18/24 05/18/24 Previous Rx's ?Medication ?Instructions ?Recorded cefuroxime axetil 250 mg tablet 250 mg PO BID 7 days #14 tabs 05/11/24 cefuroxime axetil 250 mg tablet 250 mg PO BID 7 days #14 tabs 05/29/24 sulfamethoxazole 800 1 tab PO Q12H 7 days #14 tabs 06/02/24 mg-trimethoprim 160 mg tablet (Bactrim DS) Allergies Allergy/AdvReac Type Severity Reaction Status Date / Time No Known Allergies Allergy Verified 12/29/24 16:55 [No Known Allergies*] Review of Systems 2 Constitutional: Constitutional: Reports no additional constitutional complaints, Denies chills, Denies fever(s) and Denies night sweats Eyes: Eyes: Reports no additional eye complaints, Denies blurry vision, Denies change in vision, Denies diplopia, Denies eye discharge, Denies loss of vision and Denies eye pain ENT: Denies dizziness Cardiovascular: Cardiovascular: Reports no additional cardiovascular complaints, Denies chest pain, Denies lightheadedness, Denies Loss of Consciousness and Denies dyspnea Respiratory: Respiratory: Reports no additional respiratory complaints and Denies dyspnea Gastrointestinal: Gastrointestinal: Reports no additional gastrointestinal complaints, Denies abdominal pain, Denies melena, Denies hematochezia, Denies change in bowel habits and Denies change in stool character Genitourinary: Genitourinary: Denies hematuria, Denies urinary frequency, Denies dysuria, Denies urinary incontinence, Denies urinary hesitancy and Denies urinary urgency Musculoskeletal: Musculoskeletal: Reports no additional musculoskeletal complaints, Denies numbness and Denies tingling Neurologic: Denies dizziness, Denies loss of vision, Denies numbness and Denies tingling Psychiatric: Psychiatric: Reports no additional psychiatric complaints Endocrine: Endocrine: Reports no additional endocrine complaints Hematologic/Lymphatic: Hematologic/Lymphatic: Reports no additional hematologic/lymphatic complaints Allergic/Immunologic: Allergic/Immunologic: Reports no additional allergic/immunologic complaints PMFSH Past Medical History Attestation statement: The following information was validated with the patient. Source: old records reviewed and nursing notes reviewed Medical History Numbness of left hand Bacteremia Hydroureteronephrosis Rash ETOH abuse TBI (traumatic brain injury) Mood disorder as late effect of traumatic brain injury Depression Surgical History Hx of cystoscopy Social History Social History Household Members: Unknown / Unable to assess Household Members Other:: Reports has been [employer] surfing. Housing: Apartment Alcohol intake: current Alcohol intake frequency: 3 or more drinks per day Alcohol type: hard liquor Comment: Pt ambulates independently with no apparent limitations. 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 Sexual orientation: Straight/Heterosexual Physical Exam ED Vital Signs: Vital Signs - 24 hr 12/29/24 16:50 Temperature 98.8 F Pulse Rate 94 Respiratory Rate 16 Blood Pressure 122/65 Pulse Oximetry 93 Oxygen Delivery Method Room Air BMI result Body Mass Index 31.2 Const General: cooperative, no acute distress, alert and awake Nutritional Appearance: well nourished Orientation/consciousness: patient oriented x3 HENMT Head: Yes normal to inspection and Yes atraumatic Ears: hearing grossly normal bilaterally and external ears normal General nose exam: Normal external nose present, no nasal discharge noted and no epistaxis Face and sinus: Yes normal facial exam, No abrasion and No laceration Mouth: Normal oral and palatal mucosa present, no drooling and no muffled voice Eyes General: appearance normal, both eyes and all related structures Periorbital: periorbital findings normal Eyelids: Yes eyelids normal Conjunctivae: conjunctivae normal Pupils: Equal, round and reactive pupils present EOM: EOMs intact bilaterally Neck Neck: Yes normal visual inspection, Yes full ROM and Yes no lymphadenopathy Resp Effort & Inspection: normal respiratory effort and able to speak in complete sentences Neuro General: patient oriented x3, moves all extremities and CN's II-XI intact bilaterally Cranial nerves: Yes Equal, round and reactive pupils present Cognition (Neuro): normal cognition Extrem General: Yes normal to inspection, Yes full ROM and Yes capillary refill normal Psych Appearance: grossly normal Mental Status: mental status grossly normal Affect: normal affect Attitude: cooperative Thought process: Normal thought process present Thought content: Normal thought content present Insight: Good insight present (Psych) Course Reevaluation(s) Reevaluation #1: patient again requesting to go home, she has been here daily for the last several days. She continues To decline Substance abuse resources after spendingseveral hours in the ER. However she is not suicidal. She has a sober ride home and will be discharged. Time: 21:08 Medical Decision Making Medical Decision Making [facility] Narrative: Patient is a 59 year old assigned female at with a history of alcohol abuse presenting to the emergency department today with alcohol intoxication and requesting detox. Patient's physical exam was unremarkable. Patient's blood work showed an elevated alcohol level of 278. Patient's EKG was unremarkable. I explained my physical exam findings as well as all test results to the patient. I answered all questions asked by the patient. Patient is awaiting recovery team evaluation. Patient's disposition is pending recovery team. Differential Diagnosis Differential Diagnoses: The differential diagnosis associated with the presentation includes Alcohol intoxication Alcohol abuse Alcohol use Admission/Observation Consideration of admission/observation: Escalation of care including admission/observation considered Patient's disposition is pending recovery team. Lab Data [facility] Lab Attestation statement: I reviewed the patient's lab results. My interpretation of these results are in the [facility] Rationale portion of this note. 12/29/24 17:49 12/29/24 17:49 Labs: Lab Results 12/29/24 Range/Units 17:49 WBC 6.5 (4.8-10.8) X10*3/uL RBC 4.11 L (4.20-5.50) X10*6/uL Hgb 12.9 (12.0-16.0) g/dl Hct 36.5 L (37.0-47.0) % MCV 88.8 (80.0-98.0) fL MCH 31.4 (27.0-33.0) pg MCHC 35.3 H (31.0-35.0) g/dl RDW 13.4 (11.0-16.0) % Plt Count 303 (160-400) X10*3/uL MPV 9.5 (9.4-12.3) fL Immature Gran % (Auto) 0.2 (0.0-0.4) % Neut % (Auto) 50.3 (45-73) % Lymph % (Auto) 40.4 H (20-40) % Weakley % (Auto) 8.0 (2-11) % Eos % (Auto) 0.2 (0-4) % Baso % (Auto) 0.9 (0-2) % Lymph # (Auto) 2.6 (1.2-4.9) X10*3/uL Weakley # (Auto) 0.5 (0.1-1.2) X10*3/uL Eos # (Auto) 0.0 (0.0-0.4) X10*3/uL Baso # (Auto) 0.1 (0.0-0.2) X10*3/uL Abs Immat Gran (auto) 0.01 (0.00-0.03) X10*3/uL Absolute Neuts (auto) 3.3 (2.0-8.3) x10*3/uL Absolute Nucleated RBC 0.000 (0.0-0.012) X10*3/uL Nucleated RBC % (auto) 0.0 (0.0-0.2) /100WBC Sodium 141 (135-145) mmol/L Potassium 3.5 (3.3-5.1) mmol/L Chloride 104 (96-108) mmol/L Carbon Dioxide 20 L (22-29) mmol/L Anion Gap 21 H (12-20) BUN 17 H (9-16) mg/dL Creatinine 0.78 (0.5-1.4) mg/dL Estim Creat Clear Calc 70.0 Estimated GFR > 60 Random Glucose 101 (60-115) mg/dL Calcium 10.2 D (8.4-10.2) mg/dL Total Bilirubin 0.7 (0.0-1.0) mg/dL AST 31 (5-31) U/L ALT 17 (0-31) U/L Alkaline Phosphatase 83 (39-117) U/L Total Protein 8.1 H (6.5-8.0) g/dL Albumin 4.5 (3.5-5.0) g/dL Salicylates < 5.0 L (15-30) mg/dL Acetaminophen < 3 (<30) mcg/mL Ethyl Alcohol 278 mg/dL Independent Interpretation I performed an independent interpretation of an: EKG Interpretation: I independently interpreted this EKG and am in agreement with the below findings: Vent. Rate: 90 BPM Atrial Rate: 90 BPM P-R Int: 174 ms QRS Dur: 86 ms QT Int: 376 ms P-R-T Axes: 65 8 5 degrees QTcB Int: 459 ms Normal sinus rhythm Normal ECG When compared with ECG of 05-Feb-2023 15:53, No significant change was found DD/ [id number] Independent Historian Clinical information obtained from an independent historian. History obtained from or confirmed by: EMS (EMS provided additional history and confirmed the history provided by the patient.) Discharge Plan Discharge Clinical Impression: ETOH abuse Patient Disposition: Home, Self-Care Additional Instructions: Alcohol use disorder You were seen in the Emergency Department today for treatment of alcohol use disorder.? You may have been given medications to help with your withdrawal symptoms.? Please do not drink alcohol with them. This is very dangerous and can cause respiratory depression or other adverse reactions depending on the medication. If you would like to cut down or stop your alcohol use please consider calling our outpatient Addiction Treatment office:? [facility] (M-F 9a-5p) [address] [place] [address] [address] ? You have also been given a list of treatment providers in the area that can assist as well.? If you experience seizures, vomiting blood, black stools, falls, severe headache, chest pain, fevers, trouble breathing, hallucinations or any other concerns you need to call 911 or seek immediate care. Please stay hydrated. Prescriptions: No Action clonidine HCl 0.1 mg tablet 0.1 mg PO DAILY naltrexone 50 mg tablet 50 mg PO DAILY melatonin 3 mg tablet 3 mg PO BEDTIME quetiapine 100 mg tablet 100 mg PO BEDTIME loratadine 10 mg tablet 10 mg PO DAILY cefuroxime axetil 250 mg tablet 250 mg PO BID 7 Days Qty: 14 0RF sulfamethoxazole-trimethoprim [Bactrim DS] 800-160 mg tablet 1 tab PO Q12H 7 Days Qty: 14 0RF venlafaxine 37.5 mg capsule,extended release 24hr 75 mg PO DAILY quetiapine 50 mg tablet 150 mg PO BEDTIME PRN (Reason: Insomnia) cefuroxime axetil 250 mg tablet 250 mg PO BID 7 Days Qty: 14 0RF Print Language: Welsh
[2024-12-29 16:50] VITALS: BP 122/65; PULSE 94; RESP 16; TEMP 37.1; O2SAT 93; BMI 31.2
--- NOTE | 2024-12-29 16:58 | ECG_ITS ---
Test Reason : clearance Blood Pressure : */* mmHG Vent. Rate : 90 BPM Atrial Rate : 90 BPM P-R Int : 174 ms QRS Dur : 86 ms QT Int : 376 ms P-R-T Axes : 65 8 5 degrees QTcB Int : 459 ms Normal sinus rhythm Normal ECG When compared with ECG of 05-Feb-2023 15:53, No significant change was found Referred By: Ariana Espino Electronically Signed By: JASMINA BLACK
--- NOTE | 2024-12-29 17:34 | MHC.EDTECH ---
This pct upon checking belongings of patient, found about 7 smirnoff nips, security present, RN Aware
[2024-12-29 17:52] LABS: MANUAL DIFF FLAG NO
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
--- OUTSIDE RECORDS SUMMARY | 2024-12-29 17:56 | XMS_ITS | Referral Summary ---
Author Organization [facility] Address [address] [place] [address] Care Team Providers Care Center Administrator Name Role Phone Tonia Nelson Primary Care Provider [phone] Allergies No known active allergies Medications acetaminophen [...] use disorder. Patient was recently detoxing at [facility] since 03/12. She reports that she has completed her detox. Denies withdrawal symptoms. [facility] reports that patient will need to go through admissions again to return to [facility], if they do not take patient back then [facility] will provide transportation back to patients home. [...] (03/18/2023 12:23 PM EDT): Patient presents from [facility] for persistent dysuria, suprapubic pain and urinary frequency despite outpatient antibiotics. Patient had a recent R sided ureteral stent placed at [facility]. At the ED, patient was hemodynamically [...] 5:08 AM 03/18/2023 11:53 AM Care Teams Center Administrator Relationship Specialty Start Date End Date Tonia Nelson [address] [place] [address] PCP - General Internal Medicine 06/19/20
[2024-12-29 18:10] LABS: Alanine Aminotransferase 17 U/L (0-31); Albumin Level 4.5 g/dL (3.5-5.0); Alkaline Phosphatase 83 U/L (39-117); Anion Gap 21 (12-20); Aspartate Amino Transferase 31 U/L (5-31); Basophils Absolute Auto 0.1 X10*3/uL (0.0-0.2); Basophils Percent Auto 0.9 % (0-2); Bilirubin Total 0.7 mg/dL (0.0-1.0); Blood Urea Nitrogen 17 mg/dL (9-16); Calcium 10.2 mg/dL (8.4-10.2); Carbon Dioxide 20 mmol/L (22-29); Chloride 104 mmol/L (96-108); Eosinophils Percent Auto 0.2 % (0-4); Estimated Glomerular Filt Rate > 60; Ethanol 278 mg/dL; Glucose Random 101 mg/dL (60-115); Hematocrit 36.5 % (37.0-47.0); Hemoglobin 12.9 g/dl (12.0-16.0); Imm Gran Abs Auto 0.01 X10*3/uL (0.00-0.03); Imm Gran Pct Auto 0.2 % (0.0-0.4); Lymphocytes Absolute Auto 2.6 X10*3/uL (1.2-4.9); Lymphocytes Percent Auto 40.4 % (20-40); Mean Corpuscular HGB Conc 35.3 g/dl (31.0-35.0); Mean Corpuscular Hemoglobin 31.4 pg (27.0-33.0); Mean Corpuscular Volume 88.8 fL (80.0-98.0); Mean Platelet Volume 9.5 fL (9.4-12.3); Monocytes Absolute Auto 0.5 X10*3/uL (0.1-1.2); Neutrophils Absolute Auto 3.3 x10*3/uL (2.0-8.3); Neutrophils Percent Auto 50.3 % (45-73); Platelet Count 303 X10*3/uL (160-400); Potassium 3.5 mmol/L (3.3-5.1); Red Blood Count 4.11 X10*6/uL (4.20-5.50); Red Cell Distribution Width 13.4 % (11.0-16.0); Sodium 141 mmol/L (135-145); Total Protein 8.1 g/dL (6.5-8.0); White Blood Count 6.5 X10*3/uL (4.8-10.8)
[2024-12-29 18:24] LABS: Acetaminophen LAB < 3 mcg/mL (<30); Salicylate < 5.0 mg/dL (15-30)
--- NOTE | 2024-12-29 20:39 | PC.NURSE ---
Per provider okay for pt to leave with ride, security escorted pt.
== END 2024-12-30 00:23 | disposition home or self-care (01) ==
PROVIDERS: Physician Assistant Medical; Emergency Provider Emergency Medicine
DX: F10.129 Alcohol abuse with intoxication, unspecified (principal); Y90.8 Blood alcohol level of 240 mg/100 ml or more; Z79.899 Other long term (current) drug therapy
CPT/HCPCS: 36415; 80053; 80143; 80179; 80307; 85025; 93005; 99284

== ENCOUNTER → 2024-12-29 16:58 | Outpatient (BNV) | payer OTHER, SELFPAY | PROVIDERS: Emergency Provider Emergency Medicine; Visit Provider Internal Medicine | DX: Z13.6 Encounter for screening for cardiovascular disorders (principal) | CPT/HCPCS: 93010 ==

== ENCOUNTER 2024-12-30 14:42 | Emergency (ER) | payer OTHER, SELFPAY ==
[2024-12-30 14:56] VITALS: BP 133/69; BP 138/72; PULSE 104; PULSE 99; RESP 16; TEMP 36.6; O2SAT 93; O2SAT 95; BMI 31.2
--- NOTE | 2024-12-30 14:59 | PC.NURSE ---
Pt denies SI/HI; denies drug use; endorses drinking right before caming to ER for detox; unknown amount, pt just states enough when asked how much she drinks; security called to check the 2 large shopping bags pt came in with to ensure there is no elicit substances or weapons; pt agreeable at this time; vss
--- OUTSIDE RECORDS SUMMARY | 2024-12-30 15:43 | XMS_ITS | Clinical Summary ---
Author Organization [facility] Address [address] [place] [address] Care Team Providers Care Paste Mixing Supervisor Name Role Phone Tonia Nelson Primary Care Provider [phone] Allergies No known active allergies Medications acetaminophen [...] use disorder. Patient was recently detoxing at [facility] since 03/12. She reports that she has completed her detox. Denies withdrawal symptoms. [facility] reports that patient will need to go through admissions again to return to [facility], if they do not take patient back then [facility] will provide transportation back to [...] (03/18/2023 12:23 PM EDT): Patient presents from [facility] for persistent dysuria, suprapubic pain and urinary frequency despite outpatient antibiotics. Patient had a recent R sided ureteral stent placed at [facility]. At the ED, patient was hemodynamically [...] patient's age to complete this topic Insurance [facility] MEDICAID Advance Directives * Full Code (Latest Code Status on File) Date Activated Date Inactivated Comments 03/18/2023 11:53 AM 03/20/2023 4:21 PM * Presumed Full Code Date Activated Date Inactivated Comments 03/18/2023 5:08 AM 03/18/2023 11:53 AM Care Teams Paste Mixing Supervisor Relationship Specialty Start Date End Date Tonia Nelson [address] [place] [id number] PCP - General Internal Medicine 06/19/20
--- OUTSIDE RECORDS SUMMARY | 2024-12-30 15:43 | XMS_ITS | Referral Summary ---
Author Organization [facility] Address [address] [place] [address] Care Team Providers Care Recreational Leader Name Role Phone Tonia Nelson Primary Care Provider [phone] Allergies No known active allergies Medications acetaminophen [...] Patient was recently detoxing at [facility] since 03/12. She reports that she has completed her detox. Denies withdrawal symptoms. [facility] reports that patient will need to go through admissions again to return to [facility], if they do not take patient back then [facility] will provide transportation back to [...] PM EDT): Patient presents from [facility] for persistent dysuria, suprapubic pain and urinary frequency despite outpatient antibiotics. Patient had a recent R sided ureteral stent placed at [facility]. At the ED, patient was hemodynamically [...] Treatment Not on file Insurance [employer] [id number] Advance Directives * Full Code (Latest Code Status on File) Date Activated Date Inactivated Comments 03/18/2023 11:53 AM 03/20/2023 4:21 PM * Presumed Full Code Date Activated Date Inactivated Comments 03/18/2023 5:08 AM 03/18/2023 11:53 AM Care Teams Recreational Leader Relationship Specialty Start Date End Date Tonia Nelson [address] [place] [address] PCP - General Internal Medicine 06/19/20
--- OUTSIDE RECORDS SUMMARY | 2024-12-30 15:43 | XMS_ITS | Clinical Summary ---
Author Organization [facility] Address [address] [place] [address] Care Team Providers Care Roof Promenade Tile Setter Name Role Phone Unavailable Primary Care Provider [...]
[2024-12-30 16:01] LABS: Ethanol 257 mg/dL
[2024-12-30 19:51] VITALS: BP 138/84; PULSE 113; RESP 18; TEMP 36.8; O2SAT 94
--- NOTE | 2024-12-30 19:52 | PC.NURSE ---
Pt aox3, calm and cooperative. Speech is clear and appropriate. Requesting to be discharged. Reports no pain or concerns. Able to ambulate with a steady gait. Provider made aware.
--- NOTE | 2024-12-30 20:18 | ED.GENADULT ---
HPI - General Adult General Chief complaint: ETOH/Substance Use Stated complaint: ETOH INTOXICATION PER EMS Time Seen by Provider: 12/30/24 16:16 Source: patient Limitations: other (intoxication) History of Present Illness ED Provider: Sonia Johnson PA-C HPI narrative: 59-year-old female with a history of alcohol use disorder presents intoxicated. Patient was found out in public heavily intoxicated, when EMS arrived she was requesting detox. Denies SI or HI. Related Data Home Medications ?Medication ?Instructions ?Recorded ?Confirmed quetiapine 50 mg tablet 150 mg PO BEDTIME PRN Insomnia 06/01/23 10/07/23 venlafaxine 37.5 mg 75 mg PO DAILY 06/01/23 10/07/23 capsule,extended release 24 hr clonidine HCl 0.1 mg tablet 0.1 mg PO DAILY 05/18/24 05/18/24 loratadine 10 mg tablet 10 mg PO DAILY 05/18/24 05/18/24 melatonin 3 mg tablet 3 mg PO BEDTIME 05/18/24 05/18/24 naltrexone 50 mg tablet 50 mg PO DAILY 05/18/24 05/18/24 quetiapine 100 mg tablet 100 mg PO BEDTIME 05/18/24 05/18/24 Previous Rx's ?Medication ?Instructions ?Recorded cefuroxime axetil 250 mg tablet 250 mg PO BID 7 days #14 tabs 05/11/24 cefuroxime axetil 250 mg tablet 250 mg PO BID 7 days #14 tabs 05/29/24 sulfamethoxazole 800 1 tab PO Q12H 7 days #14 tabs 06/02/24 mg-trimethoprim 160 mg tablet (Bactrim DS) Allergies Allergy/AdvReac Type Severity Reaction Status Date / Time No Known Allergies Allergy Verified 12/30/24 14:58 [No Known Allergies*] Review of Systems Review of Systems: Yes all other systems are reviewed and are negative Constitutional: Constitutional: Denies fatigue and Denies fever(s) Cardiovascular: Cardiovascular: Denies chest pain and Denies dyspnea Respiratory: Respiratory: Denies cough and Denies dyspnea Gastrointestinal: Gastrointestinal: Denies abdominal pain, Denies nausea and Denies vomiting Endocrine: Endocrine: Denies fatigue PMF Past Medical History Attestation statement: The following information was validated with the patient. Medical History Numbness of left hand Bacteremia Hydroureteronephrosis Rash ETOH abuse TBI (traumatic brain injury) Mood disorder as late effect of traumatic brain injury Depression Surgical History Hx of cystoscopy Social History Social History Household Members: Unknown / Unable to assess Household Members Other:: Reports has been [employer] surfing. Housing: Apartment Unable to assess alcohol history related to: Refusing to respond Alcohol intake: current Alcohol intake frequency: 3 or more drinks per day Alcohol type: hard liquor Comment: Pt ambulates independently with no apparent limitations. 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 Sexual orientation: Straight/Heterosexual Physical Exam ED Vital Signs: Vital Signs - 24 hr 12/30/24 14:56 12/30/24 19:51 Temperature 98 F 98.2 F Pulse Rate 99 113 H Respiratory Rate 16 18 Blood Pressure 133/69 138/84 Pulse Oximetry 93 94 Oxygen Delivery Method Room Air Room Air BMI result Body Mass Index 31.2 Const Other: Alert Orientation/consciousness: patient oriented x3 Resp Effort & Inspection: normal respiratory effort Cardio Other: Normal peripheral perfusion Skin Other: Warm dry no rash Neuro General: patient oriented x3, gait normal, no focal motor deficits and CN's II-XI intact bilaterally Psych Other: Intoxicated Course Reevaluation(s) Reevaluation #1: Patient has been here for over 5 hours, a little while ago she had verbalized to her nurse that she wanted to leave, she ended up walking out, she decided she did not want detox Time: 20:22 Medical Decision Making Medical Decision Making MDM Narrative: 59-year-old female with a history of alcohol use disorder presents intoxicated. Patient was found out in public heavily intoxicated, when EMS arrived she was requesting detox. Denies SI or HI. Problem: Alcohol use disorder History: Per patient I have considered the following differential diagnoses: SI, HI, decompensated psychiatric illness, drug/alcohol intoxication Plan: We will hold her for detox in the recovery team, we will screen basic labs, serum ethanol and drug screen I have independently reviewed the following tests: Labs: Ethanol 257, other labs not collected Lab Data Labs: Lab Results 12/30/24 Range/Units 15:39 Ethyl Alcohol 257 mg/dL Discharge Plan Discharge Clinical Impression: ETOH abuse Patient Disposition: Left W/O Completing Treatment Prescriptions: No Action clonidine HCl 0.1 mg tablet 0.1 mg PO DAILY naltrexone 50 mg tablet 50 mg PO DAILY melatonin 3 mg tablet 3 mg PO BEDTIME quetiapine 100 mg tablet 100 mg PO BEDTIME loratadine 10 mg tablet 10 mg PO DAILY cefuroxime axetil 250 mg tablet 250 mg PO BID 7 Days Qty: 14 0RF sulfamethoxazole-trimethoprim [Bactrim DS] 800-160 mg tablet 1 tab PO Q12H 7 Days Qty: 14 0RF venlafaxine 37.5 mg capsule,extended release 24hr 75 mg PO DAILY quetiapine 50 mg tablet 150 mg PO BEDTIME PRN (Reason: Insomnia) cefuroxime axetil 250 mg tablet 250 mg PO BID 7 Days Qty: 14 0RF Print Language: French
--- NOTE | 2024-12-30 20:47 | PC.NURSE ---
Pt not at the bedside and left without completing treatment.
[2024-12-30 21:48] LABS: Alanine Aminotransferase 19 U/L (0-31); Albumin Level 4.3 g/dL (3.5-5.0); Alkaline Phosphatase 76 U/L (39-117); Anion Gap 20 (12-20); Aspartate Amino Transferase 37 U/L (5-31); Bilirubin Total 0.6 mg/dL (0.0-1.0); Blood Urea Nitrogen 14 mg/dL (9-16); Calcium 9.7 mg/dL (8.4-10.2); Carbon Dioxide 21 mmol/L (22-29); Chloride 102 mmol/L (96-108); Creatinine Clr Calc Pharmacy 84.1; Estimated Glomerular Filt Rate > 60; Glucose Random 107 mg/dL (60-115); Potassium 3.4 mmol/L (3.3-5.1); Sodium 140 mmol/L (135-145); Total Protein 7.6 g/dL (6.5-8.0)
== END 2024-12-30 20:48 | disposition left against medical advice (07) ==
PROVIDERS: Emergency Medicine; Emergency Provider Emergency Medicine; PCP Physician Assistant
DX: F10.10 Alcohol abuse, uncomplicated (principal); Y90.8 Blood alcohol level of 240 mg/100 ml or more
CPT/HCPCS: 36415; 80053; 80307; 83735; 99284

== ENCOUNTER 2025-01-19 23:25 | Emergency (ER) | payer OTHER, SELFPAY ==
--- NOTE | ~2025-01-19 | CT_ITS ---
CLINICAL HISTORY: fall, etoh CT cervical spine without contrast Comparison: CT of the cervical spine from 10/06/2023 Findings: No acute fracture of the cervical spine. Mild anterolisthesis at C3-C4 and C4-C5 without significant change. Anterior prominent osteophytes, ligament calcifications, disc osteophyte complexes, and facet arthropathy are multifocal. No new or developing osseous spinal canal stenosis. Mild worsening of the multifocal foraminal narrowing, including moderate to severe left at C3-C4 and additional mild-moderate of the multiple foramina. No paraspinal hematoma. Metal artifacts noted. Mild scarring of the imaged lung apices. Imaged left dorsal rib fractures appear old in the [id number]. IMPRESSION: No acute fracture of the cervical spine. This document has been electronically signed by: Jas Noriega MD on 01/20/2025 02:36:26
--- NOTE | ~2025-01-19 | CT_ITS ---
CLINICAL HISTORY: fall, etoh CT head without contrast Comparison: Head CT from 05/29/2024 Findings: No acute intracranial hemorrhage. No significant change in lateral bilateral temporal encephalomalacia, right worse than left. No midline shift or hydrocephalus. Mild volume loss is generalized. Mild white matter lesions likely related to small-vessel ischemic disease. Dural calcifications and vascular calcifications are redemonstrated. Mild mucosal thickening of the imaged paranasal sinuses. Small left mastoid effusion with mastoid air cell remodeling. No acute skull fracture. IMPRESSION: 1. No acute intracranial abnormality by CT and no significant change when compared to 05/29/2024 This document has been electronically signed by: Jas Noriega MD on 01/20/2025 02:42:36
[2025-01-19 23:47] VITALS: BP 122/65; BP 166/97; PULSE 74; PULSE 81; RESP 18; TEMP 36.2; O2SAT 97; O2SAT 98; BMI 31.2
[2025-01-20] VITALS: BP 122/65; PULSE 74; RESP 18; TEMP 36.2; O2SAT 98
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
--- OUTSIDE RECORDS SUMMARY | 2025-01-20 00:38 | XMS_ITS | Clinical Summary ---
Author Organization [facility] Address [address] [place] [address] Care Team Providers Care Fruit Picker Machine Operator Name Role Phone Tonia Nelson Primary Care Provider [phone] Allergies No known active allergies Medications acetaminophen [...] Patient was recently detoxing at [facility] since 03/12. She reports that she has completed her detox. Denies withdrawal symptoms. [facility] reports that patient will need to go through admissions again to return to [facility], if they do not take patient back then [facility] will provide transportation back to [...] PM EDT): Patient presents from [facility] for persistent dysuria, suprapubic pain and urinary frequency despite outpatient antibiotics. Patient had a recent R sided ureteral stent placed at [facility]. At the ED, patient was hemodynamically stable. [...] patient's age to complete this topic Insurance [facility] MEDICAID Advance Directives * Full Code (Latest Code Status on File) Date Activated Date Inactivated Comments 03/18/2023 11:53 AM 03/20/2023 4:21 PM * Presumed Full Code Date Activated Date Inactivated Comments 03/18/2023 5:08 AM 03/18/2023 11:53 AM Care Teams Fruit Picker Machine Operator Relationship Specialty Start Date End Date Tonia Nelson [address] [place] [id number] PCP - General Internal Medicine 06/19/20
[2025-01-20 02:19] VITALS: BP 136/70; PULSE 100; RESP 16; TEMP 36.4; O2SAT 94
--- NOTE | 2025-01-20 02:24 | PC.NURSE ---
Based on pt answers CIWA 12. notified provider. Pt now sleeping respirations even and unlabored, in no acute distress. No new orders at this time.
[2025-01-20 04:47] VITALS: BP 130/62; PULSE 101; RESP 16; TEMP 36.6; O2SAT 95
[2025-01-20 06:21] VITALS: BP 127/70; PULSE 104; RESP 16; TEMP 36.2; O2SAT 96
[2025-01-20 06:24] VITALS: BP 127/70; PULSE 104; RESP 16; TEMP 36.2; O2SAT 96
== END 2025-01-20 06:40 | disposition home or self-care (01) ==
PROVIDERS: Emergency Provider Emergency Medicine
DX: S00.93XA Contusion of unspecified part of head, initial encounter (principal); R51.9 Headache, unspecified; M54.2 Cervicalgia; X58.XXXA Exposure to other specified factors, initial encounter; Y93.9 Activity, unspecified; Y92.9 Unspecified place or not applicable; Y99.8 Other external cause status; Z79.899 Other long term (current) drug therapy
CPT/HCPCS: 70450; 72125; 99284

== ENCOUNTER → 2025-01-20 | Outpatient (BNV) | payer OTHER, SELFPAY | PROVIDERS: Emergency Provider Emergency Medicine; Visit Provider Radiology Neuroradiology | DX: F10.20 Alcohol dependence, uncomplicated (principal); W19.XXXA Unspecified fall, initial encounter | CPT/HCPCS: 70450; 72125 ==

== ENCOUNTER 2025-02-24 22:09 | Emergency (ER) | payer OTHER, SELFPAY ==
--- NOTE | 2025-02-24 | ECG_ITS ---
Test Reason : CHEST PAIN Blood Pressure : */* mmHG Vent. Rate : 86 BPM Atrial Rate : 86 BPM P-R Int : 206 ms QRS Dur : 94 ms QT Int : 408 ms P-R-T Axes : 68 19 27 degrees QTcB Int : 488 ms Normal sinus rhythm Normal ECG When compared with ECG of 29-Dec-2024 17:53, No significant change was found Referred By: Generic ED Physician Electronically Signed By: CHELA LEBLANC MD
--- NOTE | ~2025-02-24 | XR_ITS ---
CLINICAL HISTORY: Shortness of Breath 2 view chest x-ray. Comparison: CR/MT/SR - XR CHEST 2V - 02/05/23 16:34 EDT Findings: There is unchanged minimal scarring in the right middle lobe. Lungs appear otherwise clear. Cardiomediastinal silhouette is within normal limits. 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 IMPRESSION: No acute cardiopulmonary abnormality. This document has been electronically signed by: Perez Pena MD on 02/25/2025 02:53:42
[2025-02-24 22:23] VITALS: BP 134/80; PULSE 82; PULSE 88; RESP 17; TEMP 36.1; O2SAT 97; O2SAT 98; BMI 33.1
[2025-02-24 23:03] LABS: MANUAL DIFF FLAG NO
[2025-02-24 23:05] LABS: Hematocrit 38.2 % (37.0-47.0); Hemoglobin 13.1 g/dl (12.0-16.0); Imm Gran Abs Auto 0.02 X10*3/uL (0.00-0.03); Imm Gran Pct Auto 0.3 % (0.0-0.4); Lymphocytes Absolute Auto 2.1 X10*3/uL (1.2-4.9); Mean Corpuscular HGB Conc 34.3 g/dl (31.0-35.0); Mean Corpuscular Hemoglobin 30.8 pg (27.0-33.0); Mean Corpuscular Volume 89.7 fL (80.0-98.0); NRBC Abs Auto 0.000 X10*3/uL (0.0-0.012); NRBC Pct Auto 0.0 /100WBC (0.0-0.2); Platelet Count 313 X10*3/uL (160-400); Red Blood Count 4.26 X10*6/uL (4.20-5.50); White Blood Count 6.4 X10*3/uL (4.8-10.8)
[2025-02-24 23:20] LABS: Alanine Aminotransferase 19 U/L (0-31); Albumin Level 4.6 g/dL (3.5-5.0); Alkaline Phosphatase 69 U/L (39-117); Anion Gap 17 (12-20); Aspartate Amino Transferase 24 U/L (5-31); Blood Urea Nitrogen 12 mg/dL (9-16); Calcium 9.6 mg/dL (8.4-10.2); Carbon Dioxide 25 mmol/L (22-29); Chloride 107 mmol/L (96-108); Creatinine Clr Calc Pharmacy 67.1; Estimated Glomerular Filt Rate > 60; Potassium 3.8 mmol/L (3.3-5.1); Sodium 145 mmol/L (135-145); Total Protein 7.9 g/dL (6.5-8.0)
[2025-02-24 23:28] LABS: Troponin-I High Sensitivity < 2.7 ng/L (<3.5-17.0)
--- NOTE | 2025-02-25 00:08 | ED.SOB ---
HPI - SOB/Dyspnea General Chief Complaint: Dyspnea Stated Complaint: etoh, sob Time Seen by Provider: 02/24/25 23:33 Source: patient and EMS Mode of arrival: EMS Limitations: altered mental status (ETOH) History of Present Illness ED Provider: Irving BUSTILLOS HPI Narrative: The patient is a 59-year-old female with history of EtOH dependency presenting to the ED for evaluation of shortness of breath which began while she was walking from her son's house to find a bus to take her from [place] to [place]. The patient reports she was just recently discharged from a detox program yesterday, patient reports she was sober for 3 weeks until this evening when she drank approximately 8 nips. The patient reports billy went to her son's house in [facility], but found he was not there, became anxious and upset, began walking to find a bus to take her to [place], however she then became short of breath and entered a convenience store and asked the food and beverage order clerk to call 911. The patient denies associated chest pain, pleurisy, hemoptysis, cough, abdominal pain, nausea, vomiting, diarrhea, recent sick contacts, or recent trauma. The patient denies history of COPD or tobacco use. The patient denies other substance abuse or dependency. The patient reports her shortness of breath symptoms have improved since arriving in the ED. Of note the patient reports she is scheduled for admission to a sober program on Friday. Related Data Home Medications ?Medication ?Instructions ?Recorded ?Confirmed quetiapine 50 mg tablet 150 mg PO BEDTIME PRN Insomnia 06/01/23 10/07/23 venlafaxine 37.5 mg 75 mg PO DAILY 06/01/23 10/07/23 capsule,extended release 24 hr clonidine HCl 0.1 mg tablet 0.1 mg PO DAILY 05/18/24 05/18/24 loratadine 10 mg tablet 10 mg PO DAILY 05/18/24 05/18/24 melatonin 3 mg tablet 3 mg PO BEDTIME 05/18/24 05/18/24 naltrexone 50 mg tablet 50 mg PO DAILY 05/18/24 05/18/24 quetiapine 100 mg tablet 100 mg PO BEDTIME 05/18/24 05/18/24 Previous Rx's ?Medication ?Instructions ?Recorded cefuroxime axetil 250 mg tablet 250 mg PO BID 7 days #14 tabs 05/11/24 cefuroxime axetil 250 mg tablet 250 mg PO BID 7 days #14 tabs 05/29/24 sulfamethoxazole 800 1 tab PO Q12H 7 days #14 tabs 06/02/24 mg-trimethoprim 160 mg tablet (Bactrim DS) Allergies Allergy/AdvReac Type Severity Reaction Status Date / Time No Known Allergies (No Known Allergy Verified 02/24/25 22:27 Allergies*) Review of Systems Review of Systems: Yes all other systems are reviewed and are negative PMFSH Past Medical History Medical History Numbness of left hand Bacteremia Hydroureteronephrosis Rash ETOH abuse TBI (traumatic brain injury) Mood disorder as late effect of traumatic brain injury Depression Surgical History Hx of cystoscopy Social History Social History Household Members: Unknown / Unable to assess Household Members Other:: Reports has been [employer] surfing. Housing: Apartment Unable to assess alcohol history related to: Refusing to respond Alcohol intake: current Alcohol intake frequency: 3 or more drinks per day Alcohol type: hard liquor Comment: Pt ambulates independently with no apparent limitations. 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 Vital signs as documented. HEAD: Atraumatic, normocephalic. EYES: EOMs grossly intact, pupils equal, conjunctiva clear, no exudate. ENT: Nares patent, no discharge. Airway patent, no audible stridor, visible mucosa is pink and moist without noted lesions. NECK: Trachea is midline, no obvious masses or gross abnormalities. CHEST: Symmetric movement, normal appearance. LUNGS: LS present and CTAB, no w/r/r. Non-labored work of breathing. CARDIAC: Regular Rhythm, S1/S2 appreciated, no murmurs, rubs or gallops. ABDOMEN: Abdomen soft and non-tender x4 quadrants, no palpable masses or organomegaly. : Deferred. EXTREMITIES: Normal tone, moves all extremities spontaneously without reported pain. No obvious acute injury or deformity noted. NEURO: Alert and oriented x3, CN II-XII appear grossly intact. Cerebellar Functioning grossly intact. No obvious sensory or motor deficits. Speech clear and appropriate. PSYCH: normal affect, appropriate eye contact, fluid speech, with appropriate response to questioning. No reported suicidality or homicidality. SKIN: Warm, dry, color appropriate, normal turgor. No rashes noted. Medications Administered Discontinued Medications Generic Name Dose Route Start Last Admin Trade Name Freq PRN Reason Stop Dose Admin Acetaminophen 975 mg 02/25/25 02:14 02/25/25 02:22 Acetaminophen 325 Mg Tablet PO 02/25/25 02:15 975 mg ONCE ONE Administration Ibuprofen 600 mg 02/25/25 00:17 02/25/25 00:30 Ibuprofen 600 Mg Tablet PO 02/25/25 00:18 600 mg ONCE ONE Administration Ondansetron HCl 4 mg 02/25/25 02:14 02/25/25 02:23 Ondansetron Odt 4 Mg Tab.Rapdis TRANSLINGU 02/25/25 02:15 4 mg ONCE ONE Administration Medical Decision Making Medical Decision Making MDM Narrative: 12:23 AM 02/25/2025 (Edilson BUSTILLOS): Patient is a 59-year-old female presenting to the ED for evaluation of shortness of breath which began while walking and excessive distance. The patient also reports drinking 8 nips of alcohol just prior to EMS activation after being sober for 3 weeks in a detox program. The patient in the ED is well-appearing, no evidence of acute distress. Patient's exam is benign, no adventitious lung sounds, no pleurisy with deep respiration. Patient does report some pain in the left scapula which is chronic secondary to post herpetic neuralgia. The patient's laboratory evaluation is largely reassuring, no leukocytosis, anemia, electrolyte abnormality, or BINDU. Initial troponin is negative. EKG is nonischemic. Ethanol is 127. The patient will be swabbed for viral illness and sent for a chest x-ray. We will obtain repeat troponin. If workup is unremarkable patient will be appropriate for discharge to follow up with her sober program on Friday. 3:52 AM 02/25/2025 (Edilson BUSTILLOS): The patient's chest x-ray has resulted and shows no acute cardiopulmonary process. The patient's repeat troponin is within normal limits, although it is noted to have increased from <2.7 to 8.1. Repeat EKG is unchanged. Patient sleeping comfortably upon re-evaluation, denies any chest pain, reports continued improvement in breathing. The patient we will continue to be monitored to clinical sobriety and discharged upon sober re-eval. patient is awake, alert and oriented x3 at this time 06:35. Patient is ambulatory. Patient denies any shortness of breath, no chest pain. Patient feels completely sober. Admission/Observation Consideration of admission/observation: Escalation of care including admission/observation considered Lab Data MDM Lab Attestation statement: I reviewed the patient's lab results. 02/24/25 22:56 02/24/25 22:56 Labs: Lab Results 02/24/25 02/25/25 02/25/25 Range/Units 22:56 00:30 02:26 WBC 6.4 (4.8-10.8) X10*3/uL RBC 4.26 (4.20-5.50) X10*6/uL Hgb 13.1 (12.0-16.0) g/dl Hct 38.2 (37.0-47.0) % MCV 89.7 (80.0-98.0) fL MCH 30.8 (27.0-33.0) pg MCHC 34.3 (31.0-35.0) g/dl RDW 13.4 (11.0-16.0) % Plt Count 313 (160-400) X10*3/uL MPV 9.2 L (9.4-12.3) fL Immature Gran % (Auto) 0.3 (0.0-0.4) % Neut % (Auto) 55.6 (45-73) % Lymph % (Auto) 33.1 (20-40) % Giles % (Auto) 8.4 (2-11) % Eos % (Auto) 1.7 (0-4) % Baso % (Auto) 0.9 (0-2) % Lymph # (Auto) 2.1 (1.2-4.9) X10*3/uL Giles # (Auto) 0.5 (0.1-1.2) X10*3/uL Eos # (Auto) 0.1 (0.0-0.4) X10*3/uL Baso # (Auto) 0.1 (0.0-0.2) X10*3/uL Abs Immat Gran (auto) 0.02 (0.00-0.03) X10*3/uL Absolute Neuts (auto) 3.6 (2.0-8.3) x10*3/uL Absolute Nucleated RBC 0.000 (0.0-0.012) X10*3/uL Nucleated RBC % (auto) 0.0 (0.0-0.2) /100WBC Sodium 145 (135-145) mmol/L Potassium 3.8 (3.3-5.1) mmol/L Chloride 107 (96-108) mmol/L Carbon Dioxide 25 (22-29) mmol/L Anion Gap 17 (12-20) BUN 12 (9-16) mg/dL Creatinine 0.84 (0.5-1.4) mg/dL Estim Creat Clear Calc 67.1 Estimated GFR > 60 Random Glucose 102 (60-115) mg/dL Calcium 9.6 (8.4-10.2) mg/dL Total Bilirubin 0.4 (0.0-1.0) mg/dL AST 24 (5-31) U/L ALT 19 (0-31) U/L Alkaline Phosphatase 69 (39-117) U/L Troponin I High Sens < 2.7 D 8.1 D (<3.5-17.0) ng/L Total Protein 7.9 (6.5-8.0) g/dL Albumin 4.6 (3.5-5.0) g/dL Ethyl Alcohol 127 mg/dL Influenza Type A (PCR) NEGATIVE (Negative) Influenza Type B (PCR) NEGATIVE (Negative) RSV RNA Qual (PCR) NEGATIVE (Negative) SARS-CoV-2 RNA (RT-PCR) NEGATIVE (Negative) Independent Interpretation I performed an independent interpretation of an: EKG (EKG shows sinus rhythm with a rate of 86, no evidence of acute ischemia, no ST elevation, no ectopy. QTC 488. Compared to previous on 12/29/2024 there are no acute morphology changes. ) Interpretation: Repeat EKG at 02:12 hours shows sinus tachycardia with a rate of 103, no evidence of acute ischemia, no ST elevation, no ectopy. QTC 395. Compared to previous at 22:45 hours rate has increased, there are no acute morphology changes. Radiology Impression Discussion of test interpretation with radiology: I have reviewed the radiologist's reading. Radiologist Impression: CLINICAL HISTORY: Shortness of Breath 2 view chest x-ray. Comparison: CR/MT/SR - XR CHEST 2V - 02/05/23 16:34 EDT Findings: There is unchanged minimal scarring in the right middle lobe. Lungs appear otherwise clear. Cardiomediastinal silhouette is within normal limits. 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 IMPRESSION: No acute cardiopulmonary abnormality. This document has been electronically signed by: Perez Pena MD on 02/25/2025 02:53:42 Discharge Plan Discharge Clinical Impression: ETOH abuse, Dyspnea Patient Disposition: Home, Self-Care Instructions: Abuse of Alcohol (ED), Dyspnea (ED) Prescriptions: No Action clonidine HCl 0.1 mg tablet 0.1 mg PO DAILY naltrexone 50 mg tablet 50 mg PO DAILY melatonin 3 mg tablet 3 mg PO BEDTIME quetiapine 100 mg tablet 100 mg PO BEDTIME loratadine 10 mg tablet 10 mg PO DAILY cefuroxime axetil 250 mg tablet 250 mg PO BID 7 Days Qty: 14 0RF sulfamethoxazole-trimethoprim [Bactrim DS] 800-160 mg tablet 1 tab PO Q12H 7 Days Qty: 14 0RF venlafaxine 37.5 mg capsule,extended release 24hr 75 mg PO DAILY quetiapine 50 mg tablet 150 mg PO BEDTIME PRN (Reason: Insomnia) cefuroxime axetil 250 mg tablet 250 mg PO BID 7 Days Qty: 14 0RF Print Language: [place]ican
[2025-02-25 00:16] VITALS: BP 140/91; PULSE 99; TEMP 37; O2SAT 97
[2025-02-25 01:14] LABS: Resp Syncy Virus RNA Qual PCR NEGATIVE (Negative); SARS COV2 PCR INHOUSE NEGATIVE (Negative)
--- NOTE | 2025-02-25 02:01 | ECG_ITS ---
Test Reason : SOB Blood Pressure : */* mmHG Vent. Rate : 103 BPM Atrial Rate : 103 BPM P-R Int : 182 ms QRS Dur : 84 ms QT Int : 302 ms P-R-T Axes : 61 32 29 degrees QTcB Int : 395 ms Sinus tachycardia Nonspecific T wave abnormality Abnormal ECG When compared with ECG of 24-Feb-2025 22:45, Nonspecific T wave abnormality, worse in Inferior leads Nonspecific T wave abnormality now evident in Lateral leads QT has shortened Referred By: Irving German Electronically Signed By: CHELA LEBLANC MD
[2025-02-25 02:54] LABS: Troponin-I High Sensitivity 8.1 ng/L (<3.5-17.0)
[2025-02-25 04:14] VITALS: BP 135/90; PULSE 99; TEMP 36.8; O2SAT 93
[2025-02-25 06:13] VITALS: BP 150/72; PULSE 100; RESP 15; TEMP 36.8; O2SAT 99
--- NOTE | 2025-02-25 06:43 | PC.NURSE ---
Pt alert and oriented X4, reports headache feeling better but still 8/0 pain scale. Pt ambulated to the bathroom. Walking ambulation trial completed. pt 94-95% on room air. Pt ready for discharge. aware, reviewed discharge paperwork with pt. verbalized understanding.
[2025-02-25 06:49] VITALS: BP 150/72; PULSE 100; RESP 15; TEMP 36.8; O2SAT 99
== END 2025-02-25 06:40 | disposition home or self-care (01) ==
PROVIDERS: Physician Assistant; Emergency Provider Emergency Medicine; PCP Physician Assistant
DX: R06.02 Shortness of breath (principal); F41.9 Anxiety disorder, unspecified; F10.10 Alcohol abuse, uncomplicated; Y90.6 Blood alcohol level of 120-199 mg/100 ml; R07.89 Other chest pain; Z03.818 Encounter for observation for suspected exposure to other biological agents ruled out; Z79.899 Other long term (current) drug therapy
CPT/HCPCS: 36415; 71046; 80053; 80307; 84484; 85025; 87637; 93005; 99284; 99285

== ENCOUNTER → 2025-02-24 22:45 | Outpatient (BNV) | payer OTHER, SELFPAY | PROVIDERS: Emergency Provider Emergency Medicine; PCP Physician Assistant; Visit Provider Internal Medicine Cardiovascular Disease | DX: R07.9 Chest pain, unspecified (principal) | CPT/HCPCS: 93010 ==

== ENCOUNTER → 2025-02-25 00:17 | Outpatient (BNV) | payer OTHER, SELFPAY | PROVIDERS: Emergency Provider Emergency Medicine; PCP Physician Assistant; Visit Provider Radiology Diagnostic Radiology | DX: R06.02 Shortness of breath (principal) | CPT/HCPCS: 71046 ==

== ENCOUNTER → 2025-02-25 02:01 | Outpatient (BNV) | payer OTHER, SELFPAY | PROVIDERS: Emergency Provider Emergency Medicine; PCP Physician Assistant; Visit Provider Internal Medicine Cardiovascular Disease | DX: R00.0 Tachycardia, unspecified (principal) | CPT/HCPCS: 93010 ==

== ENCOUNTER 2025-02-25 11:52 | Emergency (ER) | payer OTHER, SELFPAY ==
[2025-02-25 11:58] VITALS: BP 147/78; PULSE 94; O2SAT 95
[2025-02-25 12:00] VITALS: BP 128/72; PULSE 94; RESP 17; TEMP 36.9; O2SAT 95; BMI 33.1
--- NOTE | 2025-02-25 12:00 | ED_ITS ---
HPI - General Adult General Chief complaint: ETOH/Substance Use Stated complaint: etoh use, wants detox per ems Time Seen by Provider: 02/25/25 12:00 Source: patient and EMS Mode of arrival: EMS Limitations: no limitations History of Present Illness ED Provider: Ariana Espino PA-C HPI narrative: Patient is a 59 year old assigned female at with a history of alcohol abuse presenting to the emergency department today with alcohol intoxication and requesting detox. Patient states that she managed to be sober for 2 months and then relapsed last night and this morning. Patient states that she would like help getting placed into detox. Patient denies any dizziness, lightheadedness, abdominal pain, nausea, vomiting, fever, chills, blurry vision, double vision, loss of vision, chest pain, difficulty breathing, shortness of breath, back pain, night sweats, pain with urination, increased urinary frequency, increased urinary urgency, blood in her urine or stool, syncope or a near syncopal episode, recent trauma or falls, bowel incontinence, bladder incontinence, or any other complaints at this time. Relieving factors: none Exacerbating factors: none Associated symptoms: denies other symptoms Treatments prior to arrival: none Related Data Home Medications ?Medication ?Instructions ?Recorded ?Confirmed quetiapine 50 mg tablet 150 mg PO BEDTIME PRN Insomn ia 06/01/23 10/07/23 venlafaxine 37.5 mg 75 mg PO DAILY 06/01/2309/25 capsule,extended release 24 hr clonidine HCl 0.1 mg tablet 0.1 mg PO DAILY 05/18/24 0 05/18/24 loratadine 10 mg tablet 10 mg PO DAILY 05/18/2404/26 melatonin 3 mg tablet 3 mg PO BEDTIME 05/18/24 naltrexone 50 mg tablet 50 mg PO DAILY 05/18/2404/26 quetiapine 100 mg tablet 100 mg PO BEDTIME 05/18/24 0 05/18/24 Previous Rx's ?Medication ?Instructions ?Recorded cefuroxime axetil 250 mg tablet 250 mg PO BID 7 days # 14 tabs 05/11/24 cefuroxime axetil 250 mg tablet 250 mg PO BID 7 days # 14 tabs 05/29/24 sulfamethoxazole 800 1 tab PO Q12H 7 days #14 tab s 06/02/24 mg-trimethoprim 160 mg tablet (Bactrim DS) Allergies Allergy/AdvReac Type Severity Reaction Status Date / Time No Known Allergies (No Known Allergy Verified 02/25/25 12:02 Allergies*) Review of Systems 2 Constitutional: Constitutional: Reports no additional constitutional complaints, Denies chills, Denies fever(s) and Denies night sweats Eyes: Eyes: Reports no additional eye complaints, Denies blurry vision, Denies change in vision, Denies diplopia, Denies eye discharge, Denies loss of vision and Denies eye pain ENT: Denies dizziness Cardiovascular: Cardiovascular: Reports no additional cardiovascular complaints, Denies chest pain, Denies lightheadedness, Denies Loss of Consciousness and Denies dyspnea Respiratory: Respiratory: Reports no additional respiratory complaints and Denies dyspnea Gastrointestinal: Gastrointestinal: Reports no additional gastrointestinal complaints, Denies abdominal pain, Denies melena, Denies hematochezia, Denies change in bowel habits and Denies change in stool character Genitourinary: Genitourinary: Denies hematuria, Denies urinary frequency, Denies dysuria, Denies urinary incontinence, Denies urinary hesitancy and Denies urinary urgency Musculoskeletal: Musculoskeletal: Reports no additional musculoskeletal complaints, Denies numbness and Denies tingling Neurologic: Denies dizziness, Denies loss of vision, Denies numbness and Denies tingling Psychiatric: Psychiatric: Reports no additional psychiatric complaints Endocrine: Endocrine: Reports no additional endocrine complaints Hematologic/Lymphatic: Hematologic/Lymphatic: Reports no additional hematologic/lymphatic complaints Allergic/Immunologic: Allergic/Immunologic: Reports no additional allergic/immunologic complaints [facility] Past Medical History Attestation statement: The following information was validated with the patient. Source: old records reviewed and nursing notes reviewed Medical History Numbness of left hand Bacteremia Hydroureteronephrosis Rash ETOH abuse TBI (traumatic brain injury) Mood disorder as late effect of traumatic brain injury Depression Surgical History Hx of cystoscopy Social History Social History Household Members: Unknown / Unable to assess Household Members Other:: Reports has been couch surfing. Housing: Apartment Unable to assess alcohol history related to: Refusing to respond Alcohol intake: current Alcohol intake frequency: 3 or more drinks per day Alcohol type: hard liquor Comment: Pt ambulates independently with no apparent limitations. 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 Sexual orientation: Straight/Heterosexual Physical Exam ED Vital Signs: Vital Signs - 24 hr 02/25/25 12:00 02/25/25 13:17 02/25/25 13:18 Temperature 98.4 F 98 F Pulse Rate 94 88 88 Respiratory Rate 17 19 19 Blood Pressure 128/72 126/78 126/78 Pulse Oximetry 95 98 98 BMI result Body Mass Index 33.1 Const General: cooperative, no acute distress, alert and awake Nutritional Appearance: well nourished Orientation/consciousness: patient oriented x3 HENMT Head: Yes normal to inspection and Yes atraumatic Ears: hearing grossly normal bilaterally and external ears normal General nose exam: Normal external nose present, no nasal discharge noted and no epistaxis Face and sinus: Yes normal facial exam, No abrasion and No laceration Mouth: Normal oral and palatal mucosa present, no drooling and no muffled voice Eyes General: appearance normal, both eyes and all related structures Periorbital: periorbital findings normal Eyelids: Yes eyelids normal Conjunctivae: conjunctivae normal Pupils: Equal, round and reactive pupils present EOM: EOMs intact bilaterally Neck Neck: Yes normal visual inspection, Yes full ROM and Yes no lymphadenopathy Resp Effort & Inspection: normal respiratory effort and able to speak in complete sentences Neuro General: patient oriented x3, moves all extremities and CN's II-XI intact bilaterally Cranial nerves: Yes Equal, round and reactive pupils present Cognition (Neuro): normal cognition Extrem General: Yes normal to inspection, Yes full ROM and Yes capillary refill normal Psych Appearance: grossly normal Mental Status: mental status grossly normal Affect: normal affect Attitude: cooperative Thought process: Normal thought process present Thought content: Normal thought content present Insight: Good insight present (Psych) Medical Decision Making Medical Decision Making MDM Narrative: Patient is a 59 year old assigned female at with a history of alcohol abuse presenting to the emergency department today with alcohol intoxication and requesting detox. Patient's physical exam was unremarkable. Patient's blood work showed a mildly elevated ethanol level but otherwise unremarkable. Patient met with the CARE team who offered a bed search for detox and the patient declined. I explained my physical exam findings as well as all test results to the patient. I answered all questions asked by the patient. I stressed the importance of the patient taking her medication as directed (either prescribed or as the over the counter packaging recommends). I stressed the importance of the patient following up with her primary care provider. I stressed the importance of the patient returning to the emergency department immediately if her symptoms were to worsen or if she were to develop any dizziness, shortness of breath, difficulty breathing, chest pain, blurry vision, loss of vision, nausea, vomiting, abdominal pain, fever, chills, back pain, or any other complaints. Patient verbalized agreement and understanding with this treatment plan and discharge. Differential Diagnosis Differential Diagnoses: The differential diagnosis associated with the presentation includes Alcohol use Alcohol abuse Admission/Observation Consideration of admission/observation: Escalation of care including admission/observation considered Patient would have been admitted to the hospital had her work up had any findings where hospital admission was appropriate and her clinical presentation warranted hospital admission. Consult Healthcare Provider Management of the patient was discussed with: Behavioral Health Provider (spoke with the CARE team as noted in the MDM Rationale portion of this note. ) Lab Data [facility] Lab Attestation statement: I reviewed the patient's lab results. My interpretation of these results are in the MDM Rationale portion of this note. 02/25/25 12:34 02/25/25 12:34 Labs: Lab Results 02/25/25 Range/Units 12:34 WBC 8.3 (4.8-10.8) X10*3/uL RBC 4.27 (4.20-5.50) X10*6/uL Hgb 12.9 (12.0-16.0) g/dl Hct 38.4 (37.0-47.0) % MCV 89.9 (80.0-98.0) fL MCH 30.2 (27.0-33.0) pg MCHC 33.6 (31.0-35.0) g/dl RDW 13.6 (11.0-16.0) % Plt Count 305 (160-400) X10*3/uL MPV 9.2 L (9.4-12.3) fL Immature Gran % (Auto) 0.2 (0.0-0.4) % Neut % (Auto) 51.3 (45-73) % Lymph % (Auto) 37.6 (20-40) % Pondera % (Auto) 9.1 (2-11) % Eos % (Auto) 1.1 (0-4) % Baso % (Auto) 0.7 (0-2) % Lymph # (Auto) 3.1 (1.2-4.9) X10*3/uL [place]a # (Auto) 0.8 (0.1-1.2) X10*3/uL Eos # (Auto) 0.1 (0.0-0.4) X10*3/uL Baso # (Auto) 0.1 (0.0-0.2) X10*3/uL Abs Immat Gran (auto) 0.02 (0.00-0.03) X10*3/uL Absolute Neuts (auto) 4.3 (2.0-8.3) x10*3/uL Absolute Nucleated RBC 0.000 (0.0-0.012) X10*3/uL Nucleated RBC % (auto) 0.0 (0.0-0.2) /100WBC Sodium 143 (135-145) mmol/L Potassium 3.4 (3.3-5.1) mmol/L Chloride 103 (96-108) mmol/L Carbon Dioxide 25 (22-29) mmol/L Anion Gap 18 (12-20) BUN 15 (9-16) mg/dL Creatinine 1.00 (0.5-1.4) mg/dL Estim Creat Clear Calc 56.4 Estimated GFR 56 Random Glucose 104 (60-115) mg/dL Calcium 9.4 (8.4-10.2) mg/dL Total Bilirubin 0.6 (0.0-1.0) mg/dL AST 25 (5-31) U/L ALT 21 (0-31) U/L Alkaline Phosphatase 70 (39-117) U/L Total Protein 8.0 (6.5-8.0) g/dL Albumin 4.6 (3.5-5.0) g/dL Salicylates < 5.0 L (15-30) mg/dL Acetaminophen < 3 (<30) mcg/mL Ethyl Alcohol 155 mg/dL COVID-19 (GARCIA) Negative (Negative) COVID-19 Clin Com See Note Independent Interpretation I performed an independent interpretation of an: EKG Interpretation: I independently interpreted this EKG and am in agreement with the below findings: Vent. Rate: 91 BPM Atrial Rate: 91 BPM P-R Int: 188 ms QRS Dur: 90 ms QT Int: 386 ms P-R-T Axes: 70 40 39 degrees QTcB Int: 474 ms Normal sinus rhythm Normal ECG When compared with ECG of 25-Feb-2025 02:12, Nonspecific T wave abnormality, improved in Inferior leads Nonspecific T wave abnormality no longer evident in Lateral leads QT has lengthened DD/ 1213 Independent Historian Clinical information obtained from an independent historian. History obtained from or confirmed by: EMS (EMS provided additional history and confirmed the history provided by the patient. ) Discharge Plan Discharge Clinical Impression: ETOH abuse Patient Disposition: Home, Self-Care Instructions: Abuse of Alcohol (DC) Additional Instructions: Unfortunately, you are not willing to go to any other detox facilities and [facility] does not have any beds at this time. Follow up with a primary care provider. Return to the emergency department immediately if your symptoms worsen or if you develop any numbness, tingling, dizziness, shortness of breath, difficulty breathing, chest pain, blurry vision, loss of vision, nausea, vomiting, abdominal pain, fever, chills, back pain, or any other complaints. L If you do not have a primary care provider - call any of the below numbers to establish and follow up with a primary care provider. [facility] Primary Care ([place]) [phone] [address] [facility], [address] [facility] Primary Care ([address]) [phone] [address] [facility], [address] [facility], [address] [facility] Primary Care ([address]) [phone] [address] [facility], [address] [facility], [address] [facility] Primary Care ([place]) [phone] [place] [address], [address] [facility] [address] [facility] Family Medicine [phone] [address] [facility], [address] Please see the information below about our Patient Portal. If you are not yet enrolled in the [facility] Patient Portal, you will receive an enrollment email invitation following your visit to any [facility] setting. You may also self-enroll in the Patient Portal by visiting our website: [email or web address] The following information is required to access the Patient Portal: - Your [facility] Medical Record Number - Your personal home email address (must match what is in your electronic medical record, Registration staff can assist with this) - Name - Date of Capabilities of the Patient Portal: - Message some providers - View upcoming appointments - Access your health summary, medical history, and visit history - View current conditions and allergies - View procedure and lab results - View your medications, including guidelines, side effects, and precautions - Complete pre-appointment questionnaires requested by your provider - Ready summary reports of your office visits and procedures To access the Patient Portal Mobile [employer], follow these directions: - Search [employer] in the [employer] Store or [employer] Store - Download the [employer] - Search for [facility] - Enter your login/password Prescriptions: No Action clonidine HCl 0.1 mg tablet 0.1 mg PO DAILY naltrexone 50 mg tablet 50 mg PO DAILY melatonin 3 mg tablet 3 mg PO BEDTIME quetiapine 100 mg tablet 100 mg PO BEDTIME loratadine 10 mg tablet 10 mg PO DAILY cefuroxime axetil 250 mg tablet 250 mg PO BID 7 Days Qty: 14 0RF sulfamethoxazole-trimethoprim [Bactrim DS] 800-160 mg tablet 1 tab PO Q12H 7 Days Qty: 14 0RF venlafaxine 37.5 mg capsule,extended release 24hr 75 mg PO DAILY quetiapine 50 mg tablet 150 mg PO BEDTIME PRN (Reason: Insomnia) cefuroxime axetil 250 mg tablet 250 mg PO BID 7 Days Qty: 14 0RF Interventions: ED Discharge Assessment Last Done: 02/25/25 13:18 Discharge Date/Time: 02/25/25 13:18 Print Language: Macedonian
--- NOTE | 2025-02-25 12:00 | ECG_ITS ---
Test Reason : MEDICAL CLEARENCE Blood Pressure : */* mmHG Vent. Rate : 91 BPM Atrial Rate : 91 BPM P-R Int : 188 ms QRS Dur : 90 ms QT Int : 386 ms P-R-T Axes : 70 40 39 degrees QTcB Int : 474 ms Normal sinus rhythm Normal ECG When compared with ECG of 25-Feb-2025 02:12, Nonspecific T wave abnormality, improved in Inferior leads Nonspecific T wave abnormality no longer evident in Lateral leads QT has lengthened Referred By: Ariana Espino Electronically Signed By: CHELA LEBLANC MD
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
[2025-02-25 12:39] LABS: MANUAL DIFF FLAG NO
[2025-02-25 12:41] LABS: Hematocrit 38.4 % (37.0-47.0); Hemoglobin 12.9 g/dl (12.0-16.0); Imm Gran Abs Auto 0.02 X10*3/uL (0.00-0.03); Imm Gran Pct Auto 0.2 % (0.0-0.4); Lymphocytes Absolute Auto 3.1 X10*3/uL (1.2-4.9); Mean Corpuscular HGB Conc 33.6 g/dl (31.0-35.0); Mean Corpuscular Hemoglobin 30.2 pg (27.0-33.0); Mean Corpuscular Volume 89.9 fL (80.0-98.0); NRBC Abs Auto 0.000 X10*3/uL (0.0-0.012); NRBC Pct Auto 0.0 /100WBC (0.0-0.2); Platelet Count 305 X10*3/uL (160-400); Red Blood Count 4.27 X10*6/uL (4.20-5.50); White Blood Count 8.3 X10*3/uL (4.8-10.8)
[2025-02-25 12:53] LABS: COVID-19 Test Negative (Negative); IDNOW Serial# 58CA691E
[2025-02-25 13:02] LABS: Alanine Aminotransferase 21 U/L (0-31); Albumin Level 4.6 g/dL (3.5-5.0); Alkaline Phosphatase 70 U/L (39-117); Anion Gap 18 (12-20); Aspartate Amino Transferase 25 U/L (5-31); Blood Urea Nitrogen 15 mg/dL (9-16); Calcium 9.4 mg/dL (8.4-10.2); Carbon Dioxide 25 mmol/L (22-29); Chloride 103 mmol/L (96-108); Creatinine Clr Calc Pharmacy 56.4; Estimated Glomerular Filt Rate 56; Potassium 3.4 mmol/L (3.3-5.1); Sodium 143 mmol/L (135-145); Total Protein 8.0 g/dL (6.5-8.0)
[2025-02-25 13:03] LABS: Acetaminophen LAB < 3 mcg/mL (<30); Salicylate < 5.0 mg/dL (15-30)
[2025-02-25 13:17] VITALS: BP 126/78; PULSE 88; RESP 19; O2SAT 98
[2025-02-25 13:18] VITALS: BP 126/78; PULSE 88; RESP 19; TEMP 36.6; O2SAT 98
== END 2025-02-25 13:18 | disposition home or self-care (01) ==
PROVIDERS: Physician Assistant Medical; Emergency Provider Emergency Medicine Emergency Medical Services
DX: F10.10 Alcohol abuse, uncomplicated (principal); Y90.6 Blood alcohol level of 120-199 mg/100 ml; F32.A Depression, unspecified; Z79.899 Other long term (current) drug therapy; Z11.52 Encounter for screening for COVID-19
CPT/HCPCS: 80053; 80143; 80179; 80307; 85025; 87635; 93005; 99284; S9485

== ENCOUNTER 2025-02-26 21:02 | Emergency (ER) | payer OTHER, SELFPAY ==
[2025-02-26 21:12] VITALS: BP 130/78; PULSE 90; O2SAT 96
[2025-02-26 21:47] VITALS: BP 117/60; PULSE 100; RESP 16; TEMP 37; O2SAT 98; BMI 32.1
--- NOTE | 2025-02-26 22:18 | ED.GENADULT ---
HPI - General Adult General Chief complaint: Dyspnea Stated complaint: sob x1 hr Time Seen by Provider: 02/26/25 22:18 History of Present Illness ED Provider: Diandra BAIN narrative: The patient is a 59-year-old female with a history of alcoholism. She says that she visited some friends in [place] today. Her friends were drinking and she had alcohol with them as well. She was then trying to get a ride back to [place] where she lives. She was walking and it stop and shop she called an ambulance complaining of shortness of breath. EMS placed an IV. The patient says that her shortness of breath resolved and she is no longer complaining of shortness of breath. She remove the IV that the paramedics had placed. She currently has no complaints although she admits to being intoxicated. She says that she last went to detox couple of months ago. She went to [facility] detox. She says that she was sober for after that and she says that her alcohol use this 25 of February weekend is the 1st alcohol she has had since going to [facility]. The patient apparently was seen here a little over 24 hours ago, late on the evening of February 24. At that ER visit she also said that this was the 1st time that she has had alcohol since going to detox several weeks ago. Related Data Home Medications ?Medication ?Instructions ?Recorded ?Confirmed quetiapine 50 mg tablet 150 mg PO BEDTIME PRN Insomnia 06/01/23 10/07/23 venlafaxine 37.5 mg 75 mg PO DAILY 06/01/23 10/07/23 capsule,extended release 24 hr clonidine HCl 0.1 mg tablet 0.1 mg PO DAILY 05/18/24 05/18/24 loratadine 10 mg tablet 10 mg PO DAILY 05/18/24 05/18/24 melatonin 3 mg tablet 3 mg PO BEDTIME 05/18/24 05/18/24 naltrexone 50 mg tablet 50 mg PO DAILY 05/18/24 05/18/24 quetiapine 100 mg tablet 100 mg PO BEDTIME 05/18/24 05/18/24 Previous Rx's ?Medication ?Instructions ?Recorded cefuroxime axetil 250 mg tablet 250 mg PO BID 7 days #14 tabs 05/11/24 cefuroxime axetil 250 mg tablet 250 mg PO BID 7 days #14 tabs 05/29/24 sulfamethoxazole 800 1 tab PO Q12H 7 days #14 tabs 06/02/24 mg-trimethoprim 160 mg tablet (Bactrim DS) Allergies Allergy/AdvReac Type Severity Reaction Status Date / Time No Known Allergies (No Known Allergy Verified 02/26/25 21:48 Allergies*) Review of Systems Review of Systems: Yes all other systems are reviewed and are negative PMFSH Past Medical History Medical History Numbness of left hand Bacteremia Hydroureteronephrosis Rash ETOH abuse TBI (traumatic brain injury) Mood disorder as late effect of traumatic brain injury Depression Surgical History Hx of cystoscopy Social History Social History Household Members: Unknown / Unable to assess Household Members Other:: Reports has been [employer] surfing. Housing: Apartment Unable to assess alcohol history related to: Refusing to respond Alcohol intake: current Alcohol intake frequency: 3 or more drinks per day Alcohol type: hard liquor Comment: Pt ambulates independently with no apparent limitations. 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 She seemed to be sleeping comfortably. She awoke easily with a gentle verbal stimulation. She did not seem in distress. She seems somewhat intoxicated. HENMT Other: The face is symmetrical. ?Mucous membranes moist. Eyes Other: Pupils are round equal, conjunctivae are clear, extraocular movements intact Sclerae: sclerae normal Neck Neck: Yes normal visual inspection, Yes full ROM and Yes no JVD Resp Effort & Inspection: normal respiratory effort Auscultation: clear to auscultation bilaterally Cardio Rate: regular rate Rhythm: regular rhythm Heart sounds: S1 normal heart sound present and S2 normal heart sound present GI Other: Abdomen is soft and nontender Skin Other: The skin is dry and unremarkable Neuro Other: The patient was sleeping but awoke easily to verbal stimulation. She had a fairly normal mental status although she seemed mildly intoxicated. Cranial nerves were grossly intact. She moves her extremities symmetrically and appropriately. Extrem Other: There is no calf swelling or tenderness. No asymmetry. No peripheral edema. Medical Decision Making Medical Decision Making [facility] Narrative: The patient is a 59-year-old female with a long history of alcoholism. I believe she recently had a period of several weeks of sobriety after detox at [facility]. She was here yesterday for intoxication and is here again intoxicated. She apparently initially had some complaints of shortness of breath but this resolved spontaneously and I think the major issue is her intoxication. She was calm and cooperative. Her labs are surprisingly unremarkable given her alcohol history (based on a review of innumerable previous emergency room visits). The patient seemed comfortable with the plan of discharge. On Friday she is supposed to begin a sober program, a TSS program. She still plans on doing this. She was discharged with a plan to start this program on Friday. She was also advised to contact the [facility] for an appointment to discuss her sobriety there as well. Lab Data 02/26/25 23:06 02/26/25 23:06 Labs: Lab Results 02/26/25 Range/Units 23:06 WBC 7.8 (4.8-10.8) X10*3/uL RBC 4.05 L (4.20-5.50) X10*6/uL Hgb 12.2 (12.0-16.0) g/dl Hct 35.9 L (37.0-47.0) % MCV 88.6 (80.0-98.0) fL MCH 30.1 (27.0-33.0) pg MCHC 34.0 (31.0-35.0) g/dl RDW 13.5 (11.0-16.0) % Plt Count 299 (160-400) X10*3/uL MPV 9.0 L (9.4-12.3) fL Immature Gran % (Auto) 0.1 (0.0-0.4) % Neut % (Auto) 45.6 (45-73) % Lymph % (Auto) 43.6 H (20-40) % [place] % (Auto) 9.0 (2-11) % Eos % (Auto) 1.2 (0-4) % Baso % (Auto) 0.5 (0-2) % Lymph # (Auto) 3.4 (1.2-4.9) X10*3/uL [place] # (Auto) 0.7 (0.1-1.2) X10*3/uL Eos # (Auto) 0.1 (0.0-0.4) X10*3/uL Baso # (Auto) 0.0 (0.0-0.2) X10*3/uL Abs Immat Gran (auto) 0.01 (0.00-0.03) X10*3/uL Absolute Neuts (auto) 3.6 (2.0-8.3) x10*3/uL Absolute Nucleated RBC 0.000 (0.0-0.012) X10*3/uL Nucleated RBC % (auto) 0.0 (0.0-0.2) /100WBC PT 11.2 (10.9-12.4) SEC INR 1.0 (0.9-1.1) Sodium 143 (135-145) mmol/L Potassium 3.1 L (3.3-5.1) mmol/L Chloride 102 (96-108) mmol/L Carbon Dioxide 26 (22-29) mmol/L Anion Gap 18 (12-20) BUN 20 H (9-16) mg/dL Creatinine 0.88 (0.5-1.4) mg/dL Estim Creat Clear Calc 63.1 Estimated GFR > 60 Random Glucose 117 H (60-115) mg/dL Calcium 8.9 (8.4-10.2) mg/dL Total Bilirubin 0.5 (0.0-1.0) mg/dL Direct Bilirubin 0.2 (0.0-0.5) mg/dL AST 26 (5-31) U/L ALT 23 (0-31) U/L Alkaline Phosphatase 67 (39-117) U/L Total Protein 7.6 (6.5-8.0) g/dL Albumin 4.4 (3.5-5.0) g/dL Ethyl Alcohol 164 mg/dL Discharge Plan Discharge Clinical Impression: Alcohol intoxication Patient Disposition: Home, Self-Care Additional Instructions: please do your best to try to avoid using any alcohol again. At the moment your liver tests are looking quite good. I think if you stop drinking now you will avoid permanent liver damage. However if you continue to drink I think you were at high-risk of developing severe liver injury. Please continue your plan to go to the [facility] sober program tomorrow. For additional assistance you may follow up with the [facility] here at [facility]. Also follow up with your regular doctor's office. Return to the emergency room if significantly worse. Prescriptions: No Action clonidine HCl 0.1 mg tablet 0.1 mg PO DAILY naltrexone 50 mg tablet 50 mg PO DAILY melatonin 3 mg tablet 3 mg PO BEDTIME quetiapine 100 mg tablet 100 mg PO BEDTIME loratadine 10 mg tablet 10 mg PO DAILY cefuroxime axetil 250 mg tablet 250 mg PO BID 7 Days Qty: 14 0RF sulfamethoxazole-trimethoprim [Bactrim DS] 800-160 mg tablet 1 tab PO Q12H 7 Days Qty: 14 0RF venlafaxine 37.5 mg capsule,extended release 24hr 75 mg PO DAILY quetiapine 50 mg tablet 150 mg PO BEDTIME PRN (Reason: Insomnia) cefuroxime axetil 250 mg tablet 250 mg PO BID 7 Days Qty: 14 0RF Referrals: [facility] [Provider Group] [facility] [Provider Group] Interventions: ED Discharge Assessment Last Done: 02/27/25 00:05 Discharge Date/Time: 02/27/25 00:07 Print Language: Vietnamese
[2025-02-26 23:18] LABS: Hematocrit 35.9 % (37.0-47.0); Hemoglobin 12.2 g/dl (12.0-16.0); Imm Gran Abs Auto 0.01 X10*3/uL (0.00-0.03); Imm Gran Pct Auto 0.1 % (0.0-0.4); Lymphocytes Absolute Auto 3.4 X10*3/uL (1.2-4.9); MANUAL DIFF FLAG NO; Mean Corpuscular HGB Conc 34.0 g/dl (31.0-35.0); Mean Corpuscular Hemoglobin 30.1 pg (27.0-33.0); Mean Corpuscular Volume 88.6 fL (80.0-98.0); NRBC Abs Auto 0.000 X10*3/uL (0.0-0.012); NRBC Pct Auto 0.0 /100WBC (0.0-0.2); Platelet Count 299 X10*3/uL (160-400); Red Blood Count 4.05 X10*6/uL (4.20-5.50); White Blood Count 7.8 X10*3/uL (4.8-10.8)
[2025-02-26 23:25] LABS: INTERNATIONAL NORM RATIO 1.0 (0.9-1.1); Prothrombin Time 11.2 SEC (10.9-12.4)
[2025-02-26 23:34] LABS: Alanine Aminotransferase 23 U/L (0-31); Albumin Level 4.4 g/dL (3.5-5.0); Alkaline Phosphatase 67 U/L (39-117); Anion Gap 18 (12-20); Aspartate Amino Transferase 26 U/L (5-31); Blood Urea Nitrogen 20 mg/dL (9-16); Calcium 8.9 mg/dL (8.4-10.2); Carbon Dioxide 26 mmol/L (22-29); Chloride 102 mmol/L (96-108); Creatinine Clr Calc Pharmacy 63.1; Estimated Glomerular Filt Rate > 60; Potassium 3.1 mmol/L (3.3-5.1); Sodium 143 mmol/L (135-145); Total Protein 7.6 g/dL (6.5-8.0)
[2025-02-27 00:05] VITALS: BP 119/64; PULSE 110; RESP 20; TEMP 36.8; O2SAT 90
== END 2025-02-27 00:07 | disposition home or self-care (01) ==
PROVIDERS: Emergency Provider Emergency Medicine
DX: F10.129 Alcohol abuse with intoxication, unspecified (principal); Y90.6 Blood alcohol level of 120-199 mg/100 ml; R06.02 Shortness of breath
CPT/HCPCS: 36415; 80048; 80076; 80307; 85025; 85610; 99282; 99283

== ENCOUNTER 2025-05-13 23:57 | Emergency (ER) | payer OTHER, SELFPAY ==
[2025-05-14 01:03] VITALS: BP 140/72; PULSE 84; O2SAT 95; BMI 37.6
--- NOTE | 2025-05-14 01:18 | MHC.EDTECH ---
0118 Urine cup given to patient, instructed to bring it back to her room and place on the blue alicia. Once order is in place this tech will return to collect the sample and send it down to the lab.
[2025-05-14 01:19] VITALS: BP 133/72; PULSE 88; TEMP 36.4; O2SAT 96
--- NOTE | 2025-05-14 01:57 | ED.ALCOHOL ---
HPI - Alcohol General Chief Complaint: ETOH/Substance Use Stated Complaint: ETOH Time Seen by Provider: 05/14/25 00:22 Source: patient, EMS and old records reviewed Mode of arrival: EMS Limitations: altered mental status (Intoxication) History of Present Illness ED Provider: Dr. Petra Scott HPI narrative: 59-year-old female with a history of alcohol use disorder, depression and anxiety presenting with alcohol intoxication from the street by EMS. EMS reports they are called by a bystander when she was found standing on the sidewalk intoxicated. Patient reports that she drinks about a sleeve of vodka nips daily. Has been doing this for about 7 days. Admits she is ?has been going on a Adams?. When she does this, she tends to drink rather heavily. Can not tell me how much she drinks on a daily basis but does have history of alcohol withdrawal seizures. Denies recent illness including fever, cough or cold-type symptoms, chest pain, difficulty breathing, abdominal pain, nausea, vomiting, diarrhea, bowel changes or urinary complaints. Denies other illicit substance use. Denies SI though she does feel depressed. Admits ?if I had a plan, it would be to pop some pills?. Related Data Home Medications ?Medication ?Instructions ?Recorded ?Confirmed quetiapine 50 mg tablet 150 mg PO BEDTIME PRN Insomnia 06/01/23 10/07/23 venlafaxine 37.5 mg 75 mg PO DAILY 06/01/23 10/07/23 capsule,extended release 24 hr clonidine HCl 0.1 mg tablet 0.1 mg PO DAILY 05/18/24 05/18/24 loratadine 10 mg tablet 10 mg PO DAILY 05/18/24 05/18/24 melatonin 3 mg tablet 3 mg PO BEDTIME 05/18/24 05/18/24 naltrexone 50 mg tablet 50 mg PO DAILY 05/18/24 05/18/24 quetiapine 100 mg tablet 100 mg PO BEDTIME 05/18/24 05/18/24 Previous Rx's ?Medication ?Instructions ?Recorded cefuroxime axetil 250 mg tablet 250 mg PO BID 7 days #14 tabs 05/11/24 cefuroxime axetil 250 mg tablet 250 mg PO BID 7 days #14 tabs 05/29/24 sulfamethoxazole 800 1 tab PO Q12H 7 days #14 tabs 10/09/24 mg-trimethoprim 160 mg tablet (Bactrim DS) Allergies Allergy/AdvReac Type Severity Reaction Status Date / Time No Known Allergies (No Known Allergy Verified 05/14/25 01:05 Allergies*) Review of Systems Review of Systems: as per HPI, full review of systems performed and negative but for the above mentioned pertinent positives and negatives. [facility] Past Medical History Medical History Numbness of left hand Bacteremia Hydroureteronephrosis Rash ETOH abuse TBI (traumatic brain injury) Mood disorder as late effect of traumatic brain injury Depression Surgical History Hx of cystoscopy Social History Social History Household Members: Unknown / Unable to assess Household Members Other:: Reports has been [employer] surfing. Housing: Apartment Unable to assess alcohol history related to: Refusing to respond Alcohol intake: current Alcohol intake frequency: 3 or more drinks per day Alcohol type: hard liquor Comment: Pt ambulates independently with no apparent limitations. 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 SKIN: Normal skin color for ethnicity, warm, dry, no rashes noted. HEENT: Normocephalic, atraumatic, no stridor, posterior oropharynx nonerythematous, dentition intact, EOMI, pupils are pinpoint bilaterally, reactive to light. NECK: Soft, supple, no step-offs, no deformities, no lymphadenopathy. CHEST: Heart regular tachycardia, no murmurs, symmetric chest rise and fall. PULMONARY: Clear to auscultation bilaterally, diminished at the bases, no labored breathing, no wheezes/rhales/rhonchi. ABDOMINAL: Soft, nondistended, positive bowel sounds in all quadrants. : Deferred. MUSCULOSKELETAL: Normal tone, full range of motion, no deformities, no peripheral edema. NEURO: GCS 13, eyes open to voice, slightly slurred speech, CN II through XII intact, equal strength and sensation bilateral upper and lower extremities, no focal neurologic deficits. PSYCHIATRIC: Flat affect, poor eye contact. Vital Signs: Vital Signs - 24 hr 05/14/25 01:19 05/14/25 04:41 05/14/25 07:02 Temperature 97.5 F 96.9 F 98 F Pulse Rate 88 93 99 Respiratory Rate 18 18 Blood Pressure 133/72 117/71 133/75 Pulse Oximetry 96 93 95 Oxygen Delivery Method Room Air Room Air Room Air BMI result Body Mass Index 37.6 Course Reevaluation(s) Reevaluation #1: DR. Gibson's progress note: 05/14/2025. VSS, seen and evaluated by recovery team, patient was just discharged from detox yesterday, care team input is appreciated, no SI, no HI, patient will be okay to discharge home will be going to her friend today. Time: 08:30 Medical Decision Making Medical Decision Making [facility] Narrative: Patient presents with request for alcohol detox. Differential diagnosis includes alcohol intoxication, alcohol withdrawal, substance use disorder, decompensated mental illness including depression and anxiety, among many others. We will initiate medical clearance and recovery team/care team consult. 3:55 AM 05/14/2025 (Dr. Petra Scott, D.O.) patient is refusing blood work once again. Stating ?this is only being done for [employer]. You're just trying to get money out of me?. Differential Diagnosis Differential Diagnoses: The differential diagnosis associated with the presentation includes (Dr. Petra Scott) Admission/Observation Consideration of admission/observation: Escalation of care including admission/observation considered Consult Healthcare Provider Management of the patient was discussed with: Behavioral Health Provider Lab Data MDM Lab Attestation statement: I reviewed the patient's lab results. 05/14/25 04:46 05/14/25 04:46 Labs: Lab Results 05/14/25 05/14/25 Range/Units 02:46 04:46 WBC 6.3 (4.8-10.8) X10*3/uL RBC 3.62 L (4.20-5.50) X10*6/uL Hgb 10.9 L (12.0-16.0) g/dl Hct 32.3 L (37.0-47.0) % MCV 89.2 (80.0-98.0) fL MCH 30.1 (27.0-33.0) pg MCHC 33.7 (31.0-35.0) g/dl RDW 13.2 (11.0-16.0) % Plt Count 208 D (160-400) X10*3/uL MPV 9.2 L (9.4-12.3) fL Immature Gran % (Auto) 0.2 (0.0-0.4) % Neut % (Auto) 30.7 L (45-73) % Lymph % (Auto) 56.2 H (20-40) % [place] % (Auto) 9.1 (2-11) % Eos % (Auto) 3.3 (0-4) % Baso % (Auto) 0.5 (0-2) % Lymph # (Auto) 3.6 (1.2-4.9) X10*3/uL [place] # (Auto) 0.6 (0.1-1.2) X10*3/uL Eos # (Auto) 0.2 (0.0-0.4) X10*3/uL Baso # (Auto) 0.0 (0.0-0.2) X10*3/uL Abs Immat Gran (auto) 0.01 (0.00-0.03) X10*3/uL Absolute Neuts (auto) 2.0 (2.0-8.3) x10*3/uL Absolute Nucleated RBC 0.000 (0.0-0.012) X10*3/uL Nucleated RBC % (auto) 0.0 (0.0-0.2) /100WBC Sodium 146 H (135-145) mmol/L Potassium 4.1 D (3.3-5.1) mmol/L Chloride 112 H (96-108) mmol/L Carbon Dioxide 27 (22-29) mmol/L Anion Gap 11 L (12-20) BUN 15 (9-16) mg/dL Creatinine 0.83 (0.5-1.4) mg/dL Estim Creat Clear Calc 72.8 Estimated GFR > 60 Random Glucose 88 (60-115) mg/dL Calcium 8.7 (8.4-10.2) mg/dL Total Bilirubin 0.2 (0.0-1.0) mg/dL AST 24 (5-31) U/L ALT 19 (0-31) U/L Alkaline Phosphatase 56 (39-117) U/L Total Protein 6.5 (6.5-8.0) g/dL Albumin 3.8 (3.5-5.0) g/dL Urine Color Yellow Urine Appearance Clear Urine pH 6.0 (5.0-9.0) Ur Specific [place] 1.010 (1.005-1.025) Urine Protein Negative (Neg-Trace) mg/dL Urine Glucose (UA) Negative (Negative) mg/dL Urine Ketones Negative (Negative) mg/dL Urine Blood Negative (Negative) Urine Nitrite Negative (Negative) Ur Leukocyte Esterase Small (1+) H (Negative) Urine RBC 0-2 (0-2) /HPF Urine WBC 6-10 H (0-5) /HPF Ur Squamous Epith Cells 3-5 (0-2) /HPF Urine Bacteria Trace (None Seen) Hyaline Casts 0-2 (0-2) /LPF Urine Opiates Screen Not Detected (Not Detect) Ur Buprenorphine Scrn Not Detected (Not Detect) ng/mL Ur Oxycodone Screen Not Detected (Not Detect) ng/mL Urine Methadone Screen Not Detected (Not Detect) ng/mL Urine Fentanyl Screen Not Detected (Not Detect) Ur Barbiturates Screen Not Detected (Not Detect) Ur Phencyclidine Scrn Not Detected (Not Detect) Ur Amphetamines Screen Not Detected (Not Detect) U Benzodiazepines Scrn Not Detected (Not Detect) Urine Cocaine Screen Not Detected (Not Detect) U Marijuana (THC) Screen Not Detected (Not Detect) Ethyl Alcohol 186 mg/dL Independent Historian Clinical information obtained from an independent historian. History obtained from or confirmed by: EMS External Record Review External record reviewed: Inpatient record Chronic Conditions Patient?s care impacted by: Other (Alcohol use disorder, anxiety and depression) Social Determinants Patient?s care significantly limited by Social Determinants of Health including: Other Social Determinant of Health Medications Administered Discontinued Medications Generic Name Dose Route Start Last Admin Trade Name Freq PRN Reason Stop Dose Admin Lorazepam 2 mg 05/14/25 07:05 05/14/25 07:11 Lorazepam 1 Mg Tablet PO 05/14/25 07:06 2 mg ONCE ONE Administration Ondansetron HCl 4 mg 05/14/25 07:06 05/14/25 07:11 Ondansetron Odt 4 Mg Tab.Beatriz EVERETTU 05/14/25 07:07 4 mg ONCE ONE Administration Discharge Plan Discharge Clinical Impression: Alcoholic intoxication, Alcohol withdrawal syndrome, ETOH abuse Patient Disposition: Home, Self-Care Instructions: Alcohol Use Disorder (ED) Additional Instructions: Alcohol use disorder You were seen in the Emergency Department today for treatment of alcohol use disorder.? You may have been given medications to help with your withdrawal symptoms.? Please do not drink alcohol with them. This is very dangerous and can cause respiratory depression or other adverse reactions depending on the medication. If you would like to cut down or stop your alcohol use please consider calling our outpatient Addiction Treatment office:? [facility] (M-F [id number]) [address] [place] [address] [address] You have also been given a list of treatment providers in the area that can assist as well.? If you experience seizures, vomiting blood, black stools, falls, severe headache, chest pain, fevers, trouble breathing, hallucinations or any other concerns you need to call 911 or seek immediate care. Please stay hydrated. Prescriptions: No Action clonidine HCl 0.1 mg tablet 0.1 mg PO DAILY naltrexone 50 mg tablet 50 mg PO DAILY melatonin 3 mg tablet 3 mg PO BEDTIME quetiapine 100 mg tablet 100 mg PO BEDTIME loratadine 10 mg tablet 10 mg PO DAILY cefuroxime axetil 250 mg tablet 250 mg PO BID 7 Days Qty: 14 0RF sulfamethoxazole-trimethoprim [Bactrim DS] 800-160 mg tablet 1 tab PO Q12H 7 Days Qty: 14 0RF venlafaxine 37.5 mg capsule,extended release 24hr 75 mg PO DAILY quetiapine 50 mg tablet 150 mg PO BEDTIME PRN (Reason: Insomnia) cefuroxime axetil 250 mg tablet 250 mg PO BID 7 Days Qty: 14 0RF Print Language: Yoruba
--- NOTE | 2025-05-14 02:47 | MHC.EDTECH ---
@02:45 Patient refused blood work, RN & Provider aware
[2025-05-14 02:59] LABS: Appearance Urine Clear; Glucose Urine UA Negative (Negative); PH 6.0 (5.0-9.0); Specific Gravity - Urine 1.010 (1.005-1.025); UMIC TRIGGER UA YES
[2025-05-14 03:11] LABS: Cannabinoid Screen Urine Not Detected (Not Detect)
--- NOTE | 2025-05-14 03:15 | PC.NURSE ---
resumed care of patient at 0300, she is currently sleeping in bed, this RN was told by [employer] that she had refused lab work at this time. Pt not currently on monitor. Call nava within reach, personal belongings at bedside.
--- NOTE | 2025-05-14 03:57 | MHC.EDTECH ---
attempted to draw Labs, once advance the needle pt became aggressive. [employer] not getting an other $ Md aware.
[2025-05-14 04:41] VITALS: BP 117/71; PULSE 93; RESP 18; TEMP 36.1; O2SAT 93
--- NOTE | 2025-05-14 04:49 | PC.NURSE ---
Roland had gone into room and let pt know that we needed labs drawn, pt was in agreement, however when tech went in she would not allow her to get the labs even though the tech was in a vein pt pulled away. This RN went in and obtained labs, and talked with the patient who did agree to let this RN draw labs, labs were obtained at this time and sent down. Pt denies needing any PO intake or bathroom needs at this time, call nava within reach. Roland to see pt pending labs
[2025-05-14 04:51] LABS: Hematocrit 32.3 % (37.0-47.0); Hemoglobin 10.9 g/dl (12.0-16.0); Imm Gran Abs Auto 0.01 X10*3/uL (0.00-0.03); Imm Gran Pct Auto 0.2 % (0.0-0.4); Lymphocytes Absolute Auto 3.6 X10*3/uL (1.2-4.9); MANUAL DIFF FLAG NO; Mean Corpuscular HGB Conc 33.7 g/dl (31.0-35.0); Mean Corpuscular Hemoglobin 30.1 pg (27.0-33.0); Mean Corpuscular Volume 89.2 fL (80.0-98.0); NRBC Abs Auto 0.000 X10*3/uL (0.0-0.012); NRBC Pct Auto 0.0 /100WBC (0.0-0.2); Platelet Count 208 X10*3/uL (160-400); Red Blood Count 3.62 X10*6/uL (4.20-5.50); White Blood Count 6.3 X10*3/uL (4.8-10.8)
[2025-05-14 05:08] LABS: Alanine Aminotransferase 19 U/L (0-31); Albumin Level 3.8 g/dL (3.5-5.0); Alkaline Phosphatase 56 U/L (39-117); Anion Gap 11 (12-20); Aspartate Amino Transferase 24 U/L (5-31); Blood Urea Nitrogen 15 mg/dL (9-16); Calcium 8.7 mg/dL (8.4-10.2); Carbon Dioxide 27 mmol/L (22-29); Chloride 112 mmol/L (96-108); Creatinine Clr Calc Pharmacy 72.8; Estimated Glomerular Filt Rate > 60; Potassium 4.1 mmol/L (3.3-5.1); Sodium 146 mmol/L (135-145); Total Protein 6.5 g/dL (6.5-8.0)
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
--- OUTSIDE RECORDS SUMMARY | 2025-05-14 06:42 | XMS_ITS | Clinical Summary ---
Author Organization [facility] Address [address] [place] [address] Care Team Providers Care Painter Decorator Name Role Phone Tonia Nelson Primary Care Provider [phone] Allergies No known active allergies Medications acetaminophen [...] use disorder. Patient was recently detoxing at [facility] since 03/12. She reports that she has completed her detox. Denies withdrawal symptoms. [facility] reports that patient will need to go through admissions again to return to [facility], if they do not take patient back then [facility] will provide transportation back to [...] (03/18/2023 12:23 PM EDT): Patient presents from [facility] for persistent dysuria, suprapubic pain and urinary frequency despite outpatient antibiotics. Patient had a recent R sided ureteral stent placed at [facility]. At the ED, patient was hemodynamically [...] 71 03/20/2023 1:11 PM EDT Temperature 36.7 C (98 F) 03/20/2023 9:21 AM EDT Respiratory Rate 18 [...] 11/08/2013 Zoster Vaccines (1 of 2) 11/08/2013 Alcohol/Substance Use Screening 08/25/2024 Depression Screening and Follow-Up 08/25/2024 Social Drivers of Health Pat ual Screening 08/25/2024 COVID-19 Vaccine (1 - 2023-2 5 season) 2025 Influenza Vaccine (#1) 2025 RSV Vaccine (60+ years old a nd patients) (1 - 1-dose 75+ series) 11/08/2038 Hepatitis B Vaccines Aged Out No long er eligible based on patient's age to complete this topic Insurance [facility] MEDICAID Advance Directives * Full Code (Latest Code Status on File) Date Activated Date Inactivated Comments 03/18/2023 11:53 AM 03/20/2023 4:21 PM * Presumed Full Code Date Activated Date Inactivated Comments 03/18/2023 5:08 AM 03/18/2023 11:53 AM Care Teams Painter Decorator Relationship Specialty Start Date End Date Tonia Nelson [address] [place] [id number] PCP - General Internal Medicine 06/19/20
[2025-05-14 07:02] VITALS: BP 133/75; PULSE 99; RESP 18; TEMP 36.6; O2SAT 95
--- NOTE | 2025-05-14 07:07 | PC.NURSE ---
Working with GREGORY Hernandez to care with this patient. Pt scored a CIWA of 10, provider notified. Pt c/o body aches, nausea/vomitting, and feels like she is withdrawing. A+OX4, anxious, cooperative. Pt ambulated to the bathroom indepedently without difficulty. Pt denies any CP or SOB. RR even and unlabored.
[2025-05-14 09:49] VITALS: BP 133/75; PULSE 99; RESP 18; TEMP 36.6; O2SAT 95
== END 2025-05-14 09:49 | disposition home or self-care (01) ==
PROVIDERS: Emergency Provider Emergency Medicine
DX: F10.239 Alcohol dependence with withdrawal, unspecified (principal); Y90.6 Blood alcohol level of 120-199 mg/100 ml; F33.1 Major depressive disorder, recurrent, moderate; R45.851 Suicidal ideations; R40.2410 Glasgow coma scale score 13-15, unspecified time; Z79.899 Other long term (current) drug therapy; Z51.81 Encounter for therapeutic drug level monitoring
CPT/HCPCS: 36415; 80053; 80307; 81001; 81003; 85025; 99284; S9485

== ENCOUNTER 2025-06-02 18:52 | Emergency (ER) | payer OTHER, SELFPAY ==
[2025-06-02 19:15] VITALS: BP 115/70; PULSE 98; RESP 20; O2SAT 95
[2025-06-02 19:20] VITALS: BP 160/92; PULSE 71; RESP 18; TEMP 36.4; O2SAT 97; BMI 31.2
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
--- NOTE | 2025-06-02 19:51 | PC.NURSE ---
Assumed care of pt, presents with alcohol relapse after being sober for 6 months unknown amount of alcohol consumed, pt is very agitated and upset with self, pt attempted to leave, but was redirected by medical staff and protective services , alert and awake, unable to contact family for safe ride home
--- NOTE | 2025-06-02 19:57 | PC.NURSE ---
Pt currently refusing labs, is aware
[2025-06-02 23:47] LABS: Hematocrit 34.7 % (37.0-47.0); Hemoglobin 11.7 g/dl (12.0-16.0); Imm Gran Abs Auto 0.01 X10*3/uL (0.00-0.03); Imm Gran Pct Auto 0.2 % (0.0-0.4); Lymphocytes Absolute Auto 3.7 X10*3/uL (1.2-4.9); MANUAL DIFF FLAG NO; Mean Corpuscular HGB Conc 33.7 g/dl (31.0-35.0); Mean Corpuscular Hemoglobin 30.5 pg (27.0-33.0); Mean Corpuscular Volume 90.4 fL (80.0-98.0); NRBC Abs Auto 0.000 X10*3/uL (0.0-0.012); NRBC Pct Auto 0.0 /100WBC (0.0-0.2); Platelet Count 277 X10*3/uL (160-400); Red Blood Count 3.84 X10*6/uL (4.20-5.50); White Blood Count 6.2 X10*3/uL (4.8-10.8)
[2025-06-03] VITALS: BP 105/59; PULSE 83; RESP 16; TEMP 36.6; O2SAT 93
[2025-06-03 00:03] LABS: Alanine Aminotransferase 17 U/L (0-31); Albumin Level 3.8 g/dL (3.5-5.0); Alkaline Phosphatase 71 U/L (39-117); Anion Gap 14 (12-20); Aspartate Amino Transferase 26 U/L (5-31); Blood Urea Nitrogen 9 mg/dL (9-16); Calcium 8.9 mg/dL (8.4-10.2); Carbon Dioxide 26 mmol/L (22-29); Chloride 112 mmol/L (96-108); Creatinine Clr Calc Pharmacy 65.0; Estimated Glomerular Filt Rate > 60; Magnesium 1.9 mg/dL (1.6-2.6); Potassium 3.6 mmol/L (3.3-5.1); Sodium 148 mmol/L (135-145); Total Protein 6.5 g/dL (6.5-8.0)
--- OUTSIDE RECORDS SUMMARY | 2025-06-03 04:51 | XMS_ITS | Clinical Summary ---
Author Organization [facility] Address [address] [place] [address] Care Team Providers Care Boot Trimmer Name Role Phone Tonia Nelson Primary Care Provider [phone] Allergies No known active allergies Medications acetaminophen [...] use disorder. Patient was recently detoxing at [facility] since 03/12. She reports that she has completed her detox. Denies withdrawal symptoms. [facility] reports that patient will need to go through admissions again to return to [facility], if they do not take patient back then [facility] will provide transportation back to patients [...] (03/18/2023 12:23 PM EDT): Patient presents from [facility] for persistent dysuria, suprapubic pain and urinary frequency despite outpatient antibiotics. Patient had a recent R sided ureteral stent placed at [facility]. At the ED, patient was hemodynamically [...] hours for pain/fever - Follow urine culture Encounters Date Type Department Care Team Description 05/23/2025 Patient Outreach [facility] [address] [place] [address] Jim, Lisa 05/23/2025 Patient Outreach [facility] [address] [place] [address] Jim, Lisa 05/17/2025 Patient Outreach [facility] [address] [place] [address] Jim, Lisa 05/16/2025 Patient Outreach [facility] [address] [place] [address] Jim, Lisa 05/16/2025 Patient Outreach [facility] [address] [place] [address] Lisa Fernandez from Last 3 Months Social History Tobacco Use Types Packs/Day Years [...] Screening 08/25/2024 Depression Screening and Follow-Up 08/25/2024 Oral Health Screening 08/25/2024 Social Drivers of Health Pat ual Screening 08/25/2024 COVID-19 Vaccine (1 - 2023-2 5 season) 2025 Influenza Vaccine (#1) 2025 RSV Vaccine (60+ years old a nd patients) (1 - 1-dose 75+ series) 11/08/2038 Hepatitis B Vaccines Aged Out No long er eligible based on patient's age to complete this topic Insurance [employer] Advance Directives * Full Code (Latest Code Status on File) Date Activated Date Inactivated Comments 03/18/2023 11:53 AM 03/20/2023 4:21 PM * Presumed Full Code Date Activated Date Inactivated Comments 03/18/2023 5:08 AM 03/18/2023 11:53 AM Care Teams Boot Trimmer Relationship Specialty Start Date End Date Tonia Nelson [address] [place] [address] PCP - General Internal Medicine 06/19/20
[2025-06-03 05:08] VITALS: BP 165/87; PULSE 91; RESP 16; TEMP 36.7; O2SAT 95
[2025-06-03 06:40] VITALS: BP 165/87; PULSE 91; RESP 16; TEMP 36.7; O2SAT 95
== END 2025-06-03 06:41 | disposition home or self-care (01) ==
PROVIDERS: Physician Assistant; Emergency Provider Emergency Medicine; PCP Physician Assistant
DX: F10.129 Alcohol abuse with intoxication, unspecified (principal); Y90.6 Blood alcohol level of 120-199 mg/100 ml; Z51.81 Encounter for therapeutic drug level monitoring; Z79.899 Other long term (current) drug therapy
CPT/HCPCS: 36415; 80053; 80307; 83735; 85025; 99283; 99284

== ENCOUNTER 2025-07-08 09:22 | Outpatient (AMB) | payer OTHER, SELFPAY ==
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
[2025-07-08 09:56] VITALS: BP 170/90; PULSE 85; RESP 18; TEMP 36.2; O2SAT 99; BMI 33.0
--- OUTSIDE RECORDS SUMMARY | 2025-07-08 10:08 | XMS_ITS | Clinical Summary ---
Author Organization [facility] Address [address] [place] [address] Care Team Providers Care Tight Cooper Name Role Phone Tonia Nelson Primary Care Provider [phone] Allergies No known active allergies Medications acetaminophen [...] use disorder. Patient was recently detoxing at [facility] since 03/12. She reports that she has completed her detox. Denies withdrawal symptoms. [facility] reports that patient will need to go through admissions again to return to [facility], if they do not take patient back then [facility] will provide transportation back to patients [...] (03/18/2023 12:23 PM EDT): Patient presents from [facility] for persistent dysuria, suprapubic pain and urinary frequency despite outpatient antibiotics. Patient had a recent R sided ureteral stent placed at [facility]. At the ED, patient was hemodynamically [...] Department Care Team Description 05/23/2025 Patient Outreach [facility] [address] [place] [address] Jim, Lisa 05/23/2025 Patient Outreach [facility] [address] [place] [address] Jim, Lisa 05/17/2025 Patient Outreach [facility] [address] [place] [address] Jim, Lisa 05/16/2025 Patient Outreach [facility] [address] [place] [address] Jim, Lisa 05/16/2025 Patient Outreach [facility] [address] [place] [address] Lisa Fernandez from Last 3 Months Social [...] ual Screening 08/25/2024 COVID-19 Vaccine (1 - 2024-2 6 season) 2025 Influenza Vaccine (#1) 2025 RSV Vaccine (60+ years old a nd patients) (1 - 1-dose 75+ series) 11/08/2038 Hepatitis B Vaccines Aged Out No long er eligible based on patient's age to complete this topic Insurance Advance Directives * Full Code (Latest Code Status on File) Date Activated Date Inactivated Comments 03/18/2023 11:53 AM 03/20/2023 4:21 PM * Presumed Full Code Date Activated Date Inactivated Comments 03/18/2023 5:08 AM 03/18/2023 11:53 AM Care Teams Tight Cooper Relationship Specialty Start Date End Date Tonia Nelson [address] [place] [address] PCP - General Internal Medicine 06/19/20
--- OUTSIDE RECORDS SUMMARY | 2025-07-08 10:08 | XMS_ITS | Clinical Summary ---
Author Organization [employer] Address [address] [facility] [address] [place] [address] Care Team Providers Care Product Trainer Name Role Phone Unavailable Primary Care Provider Unavailabl e Allergies No known active allergies Medications thiamine (Vitamin B-1) 100 MG tablet TAKE 1 TABLET BY MOUTH EVERY DAY 01/18/2022 Active acetaminophen (Tylenol) 325 MG tablet if needed. 11/04/2022 Active escitalopram (Lexapro) 20 MG tablet Take 20 mg by mouth in the morning. 01/18/2022 Active fluticasone (Flonase) 50 MCG/ACT nasal spray SPRAY 1 SPRAY INTO EACH NOSTRIL EVERY DAY 11/02/2022 Active folic acid (Folvite) 1 MG tablet Take 1,000 mcg by mouth in the morning. 01/18/2022 Active hydrOXYzine HCl (Atarax) 50 MG tablet Take 50 mg by mouth every 6 (six) hours if needed. 11/02/2022 Active lidocaine (Lidoderm) 5 % patch 11/04/2022 Active melatonin 5 MG tablet 11/13/2022 Active naltrexone (Depade) 50 MG tablet Take 50 mg by mouth in the morning. 11/02/2022 Active propranolol (Inderal) 10 MG tablet Take 10 mg by mouth 3 times daily. 11/02/2022 Active QUEtiapine (SEROquel) 100 MG tablet Take 100 mg by mouth at bedtime. 01/18/2022 Active sertraline (Zoloft) 50 MG tablet 11/04/2022 Active Encounters Date Type Department Care Team Description 05/24/2025 Patient Outreach [facility] Case Management [address] [place] [address] Gi Sommers from Last 3 Months Social History Tobacco Use Types Packs/Day Years Used Date Smoking Tobacco: Never Passive Smoke Exposure: Never Smokeless Tobacco: Never Tobacco Cessation:Counseling Given: No Alcohol Use Standard Drinks/Week Comments Not Currently 0 (1 standard drink = 0.6 oz pur e alcohol) Comments Unknown Sex and Gender Information Value Date Recorded Sex Assigned at Female 06/24/2022 10:23 AM EDT Legal Sex Female 10:23 AM EDT Gender Identity Female 06/24/2022 10:23 AM EDT Sexual Orientation Straight 06/24/2022 10 :23 AM EDT Last Filed Vital Signs Vital Sign Reading Time Taken Comments Blood Pressure 140/71 11/19/2022 2:46 PM EDT Pulse 66 11/19/2022 2:46 PM EDT Temperature 36.6 C (97.8 F) 11/19/2022 2:46 PM EDT Respiratory Rate - - Oxygen Saturation - - Inhaled Oxygen Concentration - - Weight - - Height - - Body Mass Index - - Plan of Treatment Health Maintenance Due Date Last Done Comments CT Colonography 1963 Colonoscopy 1963 Colorectal Cancer Screening 1963 Depression Screening 1963 FIT DNA/Cologuard 1963 FIT 1963 FOBT 1963 HIV Screening 1963 SDOH Screening 1963 Sigmoidoscopy 1963 Disability Screening 1963 Alcohol/Substance Use Screening 1975 Hepatitis C Screening 11/08/1981 Pap Smear 11/08/1984 Cervical Cancer Screening 11/08/1993 HPV/Cotest 11/08/1993 Mammogram 2003 Zoster Vaccines (1 of 2) 11/08/2013 Pneumococcal Vaccine: 50+ Years (2 of 2 - PCV) 05/16/2019 05/16/2018, 01/02/2017, 09/26/2014, Additional history exists Dental Prophylaxis 10/15/2019 04/13/2019, 1 10/07/2017, 04/21/2017 Dental Oral Exam 10/24/2019 04/23/2019, 10/31/2016 Dental X-Ray: Full Mouth 11/02/2019 10/31/2016 Dental X-Ray: Bitewings 04/24/2020 04/23/20 19, 04/13/2019, 02/18/2018, Additional history exists Tobacco Screening 11/20/2023 11/19/2022 COVID-19 Vaccine (4 - 2024- season) 2025 08/22/2021, 10/27/2020, 09/23/2020 Influenza Vaccine (#1) 2025 , 08/22/2021, 05/27/2019, Additional history exists DTaP/Tdap/Td Vaccines (4 - Td or Tdap) 10/14/2026 10/14/2016, 06/09/2014, 11/15/2010 RSV Patients and Patients Aged 60 years or older (1 - 1-dose 75+ series) 11/08/2038 Hepatitis A Vaccines Aged Out 05/27/2019 No long er eligible based on patient's [...] patient's age to complete this topic Meningococcal Vaccine Aged Out No eric lily eligible based on patient's age to complete this topic RSV under 20 months Aged Out No longe r eligible based on patient's age to complete this topic Rotavirus Vaccines Aged Out No longer eligible based on patient's age to complete this topic Procedures Procedure Name Priority Date/Time Associated Diagnosis Comments BITEWINGS - 4 RADIOGRAPHIC IMAGES Routine 04/23/2019 12:00 AM EDT PERIODIC ORAL EVALUATION - ESTABLISHED PATIENT Routine 04/23/2019 12:00 AM EDT PROPHYLAXIS - ADULT Routine 04/13/2019 1 2:00 AM EDT INTRAORAL - COMPLETE SERIES OF RADIOGRAPHIC IMAGES Routine 10/31/2016 12:00 AM EST from Last 3 Months or Most Recently Relevant to Health Maintenance Insurance DENTAL - HSN FULL (MEDICAID)
== END 2025-07-08 11:12 | disposition home or self-care (01) ==
LOC: HO.HMCH 09:22
PROVIDERS: PCP Internal Medicine; Visit Provider Internal Medicine
DX: Z00.00 Encounter for general adult medical examination without abnormal findings (principal); B02.9 Zoster without complications; M54.50 Low back pain, unspecified; I10 Essential (primary) hypertension; F10.91 Alcohol use, unspecified, in remission; Z23 Encounter for immunization; Z13.9 Encounter for screening, unspecified

== ENCOUNTER → 2025-07-08 09:22 | Outpatient (BNVA) | payer OTHER, SELFPAY | PROVIDERS: Visit Provider Internal Medicine | DX: Z00.00 Encounter for general adult medical examination without abnormal findings (principal); B02.9 Zoster without complications; M54.50 Low back pain, unspecified; I10 Essential (primary) hypertension; F10.91 Alcohol use, unspecified, in remission; Z23 Encounter for immunization; Z87.820 Personal history of traumatic brain injury | CPT/HCPCS: 81003; 90471; 90656; 99212 ==

== ENCOUNTER 2025-07-14 08:29 | Outpatient (AMB) | payer OTHER, SELFPAY ==
[2025-07-14 08:46] VITALS: BP 130/88; PULSE 84; TEMP 36.3; O2SAT 96; BMI 32.1
--- NOTE | 2025-07-14 08:46 | MHC.PC.OV ---
Vital Signs 07/14/25 08:46 Height 5 ft 1 in Weight 170 lb 2 oz BMI 32.1 BP 130/88 Blood Pressure Location Lt brachial Position Sitting Pulse 84 Pulse Source Pulse Oximeter Temp 97.3 F Temp Source Temporal Artery Scan Pulse Oximetry (%) 96 Oxygen Delivery Method Room Air Intake Visit Reasons: Annual [facility] Assisted Living Executive Director Required: No Accompanied by: Self / Same As Patient Allergies No Known Allergies (No Known Allergies*) Allergy (Verified 07/14/25 08:46) Medication List - Last Reconciled 07/14/25 by Wilmar Solano MD amlodipine 5 mg PO DAILY loratadine 10 mg PO DAILY melatonin 6 mg PO BEDTIME quetiapine 200 mg PO BEDTIME venlafaxine ER 75 mg PO DAILY Tobacco use date assessed: 07/08/25 Dental Screening Dental Screen Date: 07/08/25 Did you have a dental visit in the last 12 months?: Yes Did you have a dental problem in the last 6 months where you did not have access to dental care?: No Was dental information given to patient?: Patient has dentist HPI HPI Comments History of Present Illness Details The patient is a 59 year old individual with PMH of depression, allergy, insomnia, shingles, presenting for a physical examination and management of chronic conditions. The primary reason for the visit is to obtain a physical examination note required for paperwork from [facility], as the notes from a previous visit did not explicitly state it was a physical. The patient has a history of shingles and suffers from postherpetic neuralgia, characterized by a persistent backstabbing pain in the back. The patient was previously prescribed valacyclovir and has completed the course. For pain, the patient uses methocarbamol, which helps take the edge off, but has avoided using lidocaine patches due to a perceived rebound pain upon removal. Regarding hypertension, the patient was on clonidine, which was suspected of causing the blood pressure to be susana high at a previous visit 170/90. I advised the patient to run it by her psychiatrist if she can discontinue the medication. The patient reports her psychiatrist agreed to the plan and Clonidine was discontinued. BP today 130/88 on Amlodipine 5 mg. The patient is followed by a psychiatrist, Zahida Grullon from [facility], for mental health management and is prescribed venlafaxine 75 mg daily for depression, reporting that moods are up and down. The patient also takes melatonin and quetiapine for sleep. The patient reports experiencing nocturia, waking up to three times a night to urinate without any associated pain, despite limiting fluid intake before bed. 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 Social history: - Housing: The patient lives in [place], [place], and notes a lot of wood and dust in the environment. - Social Support: The patient's brother has been helping out. - Other: The patient relies on a transportation service for medical appointments. [facility] Medical History (Updated 07/14/25 @ 10:38 by Wilmar Solano MD) Numbness of left hand Bacteremia Hydroureteronephrosis Rash ETOH abuse TBI (traumatic brain injury) Mood disorder as late effect of traumatic brain injury Depression Surgical History Hx of cystoscopy Social History Household Members: Unknown / Unable to assess Household Members Other:: Reports has been [employer]. Housing: Apartment Alcohol intake: current Alcohol intake frequency: 3 or more drinks per day Alcohol type: hard liquor Comment: Pt ambulates independently with no apparent limitations. 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 1. Little interest or pleasure in doing things: nearly every day 2. Feeling down, depressed, or hopeless: nearly every day 3. Trouble falling or staying asleep, or sleeping too much: nearly every day 4. Feeling tired or having little energy: nearly every day 5. Poor appetite or overeating: nearly every day 6. Feeling bad about yourself - or that you are a failure or have let yourself or your family down: nearly every day 7. Trouble concentrating on things, such as reading the newspaper or watching television: nearly every day 8. Moving or speaking so slowly that other people could have noticed. Or the opposite - being so fidgety or restless that you have been moving around a lot more than usual: nearly every day 9. Thoughts that you would be better off or of hurting yourself in some way: not at all Total score: 24 Depression Screening Interpretation: Positive Depression Screening Follow-up: In treatment (Advised the patient to check with her psychiatrist about increasing the Venlafaxine dose as she continues to have severe MDD. ) Depression Screening Done: Yes Source: Developed by Drs. Layo Arevalo, Mariana Gil, Francisco Vela and colleagues, with an educational lisy from [employer]. Thrive Questionnaire Date Thrive assessed: 07/08/25 I am a: Patient What is your living situation today?: I have a steady place to live Within the past 12 months, did the food you bought not last and you didn't have the money to get more?: Often true Within the past 12 months, did you worry whether your food would run out before you got money to buy more?: Often true Do you have trouble paying for medicines?: No Do you have trouble getting transportation to medical appointments?: No Do you have trouble paying your heating and electricity bill?: No Do you have trouble taking care of your child, family member or friend?: Yes Do you have trouble with day-to-day activities such as bathing, preparing meals, shopping, managing finances, etc.?: Yes Are you currently unemployed and looking for a job?: Yes Are you interested in more education?: No Please select the resources that you would like help with: Housing/Senior Living, Care for elder or disabled and Daily support Currently or been in a relationship where the following occur: I choose not to answer THRIVE Score: 2 AUDIT C Alcohol Use Questionnaire (AUDIT-C) 1. How often do you have a drink containing alcohol?: Never 2. How many drinks containing alcohol do you have on a typical day when you are drinking?: 1 or 2 3. How often do you have six or more drinks on one occasion?: Never Total Score: 0 LASHAWN-7 AMB Questionnaire LASHAWN-7 Date LASHAWN - 7 assessed: 07/08/25 Feeling nervous, anxious, or on edge: 3 = Nearly every day Not being able to stop or control worryin = Nearly every day Worrying too much about different things: 3 = Nearly every day Trouble relaxin = Nearly every day Being so restless that it is hard to sit still: 3 = Nearly every day Becoming easily annoyed or irritable: 3 = Nearly every day Feeling afraid as if something awful might happen: 3 = Nearly every day Total LASHAWN-7 score (0-4 normal; 5-9 mild; 10-14 moderate; 15-21 severe): 21 Source: Developed by Drs. Layo Arevalo, Mariana Gil, Francisco Vela and colleagues, with an educational lisy from [employer]. Review of Systems Const Details: As per HPI. Physical exam (Primary Care) Vital Signs: Last Vital Signs Temp 97.3 F 07/14/25 08:46 Oxygen Delivery Method Room Air 07/14/25 08:46 Tobacco/Smoking Status: Tobacco use Status Tobacco use date assessed 07/08/25 07/08/25 10:09 Patient Tobacco Use Status Never used Tobacco 07/08/25 10:09 e-Cigarette/Vaping Use Never Used 07/08/25 10:09 Depression Screening Interpretation: Positive Depression Screening Follow-up: In treatment (Advised the patient to check with her psychiatrist about increasing the Venlafaxine dose as she continues to have severe MDD. ) Thrive Assessment: Date of Thrive Assessment Date Thrive assessed 07/08/25 07/08/25 10:09 Currently or been in a relationship where the following occur: I choose not to answer Const Other: Pertinent findings are in BOLD GENERAL APPEARANCE NAD, activity normal for age, well developed/ well nourished, no cyanosis, pallor, or diaphoresis. EYES lids/conjunctiva normal. EARS/NOSE/THROAT Mucous membranes moist, nares normal, lips/teeth normal uvula midline without oral pharyngeal erythema, exudate or swelling TMs normal bilaterally. No lymphangitis/lymphedema. HEAD/NECK normocephalic atraumatic, no facial trauma, neck is supple. RESPIRATORY respiratory effort normal, speaks in full sentences, no tripod position, no accessory muscle use. Lungs clear to auscultation without rhonchi, wheezes, rales CARDIAC Regular rate and rhythm, no edema. ABDOMINAL Soft, ND/NT. No evidence of fluid wave. No pulsatile masses on exam, rebound tenderness, Guan sign or pain over Mcburney's point. MUSCLES/EXTREMITIES No abnormal range of motion, no swelling. SKIN Warm, pink and dry. No rashes, dermatoses, petechiae or lesions. NEUROLOGICAL Speech is clear and appropriate. Normal level of consciousness. Gait and coordination are normal. 5/5 strength in all extremities. PSYCH Normal mood and affect. Judgement/competence is appropriate Coding Level of Care Code Est Pt Prev Care 40-64y(44553) Diagnoses Healthcare maintenance Z00.00 Postherpetic neuralgia B02.29 Primary hypertension I10 Hypertension type: primary hypertension Seasonal allergic rhinitis, unspecified trigger J30.2 Allergic rhinitis trigger: unspecified Allergic rhinitis seasonality: seasonal Moderate episode of recurrent major depressive disorder F33.1 Depression Type: major depressive disorder Major depression recurrence: recurrent Active/Remission status: currently active Major depression episode severity: moderate Time Spent (min) 45 Assessment & Plan Assessment & Plan (1) Healthcare maintenance: Code(s): Z00.00 - Encounter for general adult medical examination without abnormal findings Category: Medical Plan: CBC, CMP, Lipid panel, A1C, TSH w T4, vit D. Ordered. Shingles 2 doses when >50 yo. Will get it from [facility]. COVID: two doses. Completed. Tdap: Due in 2031. Pneumococcal: >50 yo. 18-49 with CKD, lung disease, weakened immune system, Heart disease, DM, cochlear implant. Completed in the past. Flu vaccine: Completed. Colonoscopy: 45-75. Ordered. AAA: 65 -75. Not indicated as never smoked. CT lun - 80. Not indicated as never smoked. HPV: Aged out. HIV: Ordered. HCV: Ordered. Dexa: At 65. Mammogram: Ordered today. (2) Postherpetic neuralgia: Code(s): B02.29 - Other postherpetic nervous system involvement Category: Medical Plan: - A prescription for methocarbamol 500 mg was sent to the patient's pharmacy. - The patient was counseled to take methocarbamol at night and to avoid driving, as it can cause drowsiness. - Recommended the patient discuss increasing the venlafaxine dose with their psychiatrist, as this could also help with neuropathic pain. - Advised the patient to obtain the shingles vaccine to reduce the risk of recurrence. (3) HTN (hypertension): Code(s): I10 - Essential (primary) hypertension Category: Medical Qualifiers: Hypertension type: primary hypertension Qualified Code(s): I10 - Essential (primary) hypertension Plan: - The patient has stopped taking clonidine, and blood pressure has improved to 130/88 mmHg. - Continue amlodipine 5 mg once daily. - Will monitor blood pressure, with consideration to discontinue amlodipine at a future visit if control is maintained. (4) Allergic rhinitis: Code(s): J30.9 - Allergic rhinitis, unspecified Category: Medical Qualifiers: Allergic rhinitis trigger: unspecified Allergic rhinitis seasonality: seasonal Qualified Code(s): J30.2 - Other seasonal allergic rhinitis Plan: - A prescription for an allergy medication (Loratidine) was provided to be used as needed for rhinorrhea symptoms. (5) Depression: Code(s): F32.9 - Major depressive disorder, single episode, unspecified Category: Medical Qualifiers: Depression Type: major depressive disorder Major depression recurrence: recurrent Active/Remission status: currently active Major depression episode severity: moderate Qualified Code(s): F33.1 - Major depressive disorder, recurrent, moderate Plan: - The patient reports a high depression score and mood fluctuations despite taking venlafaxine 75 mg daily. - Recommended that the patient request a dose increase of venlafaxine from their psychiatrist to potentially improve mood. Plan I performed a physical examination today, which served to meet the patient's paperwork requirements. We discussed the chronic back pain from shingles, and I prescribed methocarbamol 500mg, advising the patient to take it at night and avoid driving due to its sedative effects. I also suggested that the patient speak with their psychiatrist about increasing the venlafaxine dose, as it could potentially help with both the neuropathic pain and mood. We reviewed the patient's blood pressure, which has improved to 130/88 mmHg since discontinuing clonidine. The patient will continue amlodipine, and we may consider stopping it in the future if blood pressure remains controlled. For the patient's allergic rhinitis symptoms, I prescribed an as-needed medication. Health maintenance was a todd part of our discussion. I placed referrals for a colonoscopy and a mammogram, ordered fasting lab work, and advised the patient to get the shingles vaccine to prevent recurrence. I canceled the upcoming one-month follow-up and scheduled an appointment in six months. Orders: Referrals Open Access Screening Colonoscopy Referral Z12.11 - Encounter for screening for malignant neoplasm of colon, Z12.12 - Encounter for screening for malignant neoplasm of rectum Medications: New loratadine 10 mg PO DAILY 60 tabs 3RF methocarbamol 500 mg PO DAILY 90 tabs 3RF
--- OUTSIDE RECORDS SUMMARY | 2025-07-14 09:36 | XMS_ITS | Clinical Summary ---
Author Organization [employer] Address [address] [facility] [address] [place] [address] Care Team Providers Care Messaging Architect Name Role Phone Unavailable Primary Care Provider [...] Department Care Team Description 05/24/2025 Patient Outreach [facility] Case Management [address] [place] [address] Gi Sommers from Last 3 Months Social [...] Mass Index - - Plan of Treatment Upcoming Encounters Date Type Department Care Team (Late st Contact Info) Description 07/26/2025 9:00 AM EST Office Visit [place] [facility] [address] [place] [address] Saul Lee, OD [address] [place] [address] Health Maintenance Due Date Last Done Comments [...] Screening 11/20/2023 11/19/2022 COVID-19 Vaccine (4 - season) 2025 08/22/2021, 10/27/2020, 09/23/2020 Influenza Vaccine (#1) 2025 3, 08/22/2021, 05/27/2019, Additional history exists DTaP/Tdap/Td Vaccines [...] Most Recently Relevant to Health Maintenance Insurance [facility] STANDARD DENTAL - HSN FULL (MEDICAID) [facility] STANDARD
== END 2025-07-14 09:44 | disposition home or self-care (01) ==
LOC: HO.HMCH 08:30
PROVIDERS: PCP Internal Medicine; Visit Provider Internal Medicine
DX: Z00.00 Encounter for general adult medical examination without abnormal findings (principal); B02.29 Other postherpetic nervous system involvement; F33.1 Major depressive disorder, recurrent, moderate; I10 Essential (primary) hypertension; J30.2 Other seasonal allergic rhinitis

== ENCOUNTER 2025-07-14 08:29 | Outpatient (REF) | payer OTHER, SELFPAY ==
[2025-07-14 11:26] LABS: Cholesterol 244 mg/dL (<200); HDL Cholesterol 61 mg/dL (>40); Triglycerides 126 mg/dL (<150)
[2025-07-14 11:34] LABS: HIV Num 1 0.07 S/CO (0.00-0.99); ~HepC Num1 0.07 S/CO (0.00-0.79); ~Hepatitis C Antibody Nonreactive (Nonreactive)
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
--- OUTSIDE RECORDS SUMMARY | 2025-07-14 14:12 | XMS_ITS | Patient Health Record ---
Author Organization [facility] Address [address] [place] [address] Care Team Providers Care Pyrotechnic Mixer Name Role Phone [facility] ( [employer]) Primary Care Provider [phone] Mariely Barney Unavailable Reason For Referral No Information Plan Of Treatment No Information Insurance Providers Payer Name Payer Address Payer Phone Subscriber Number Group Number Insured Name Patient Relationship to Insured Coverage Start Date Coverage End Date [facility] [address] [place] [address] [id number] Katiana Lopez Self - patient is the insured
== END 2025-07-14 08:30 | disposition home or self-care (01) ==
LOC: HO.LAB 08:29
PROVIDERS: PCP Internal Medicine; Visit Provider Internal Medicine
DX: Z00.00 Encounter for general adult medical examination without abnormal findings (principal); B02.29 Other postherpetic nervous system involvement; I10 Essential (primary) hypertension; R35.1 Nocturia; J30.2 Other seasonal allergic rhinitis; F33.1 Major depressive disorder, recurrent, moderate; Z79.899 Other long term (current) drug therapy
CPT/HCPCS: 36415; 80061; 82306; 83036; 84443; 86803; 87389